=== PATIENT | male | born 1930 | race Caucasian/White ===

== ENCOUNTER → 2016-08-26 | Outpatient (REF) | payer MEDICARE, MEDICAID ==
[~2016-08-26] MED LIST: /ADVA50050 IN; /PANT40TA OR; /TAMS4CA OR; ALBU83IN INH; ASPI81TA4 PO; ASPI81TA83 OR; AZOPT EYE OU; BISA10SU PR; BREO1INH INH; CALC12502 OR; CEFT500T OR; CIPR25SS OR; COMB0.2S OU; COMBVENT INH; COZA25TA8 OR; DRIS50002 PO; FINA5TAB2 PO; FOLI1TAB OR; FOLI1TAB2 PO; ICAPCAP PO; LEVA250T PO; LEVA500T PO; LEVO250T24 PO; LEVO25TABR OR; LOPR50TA OR; LOSA100T36 PO; MAGN500T2 OR; METO25TAB FT; METO25TAB PO; MULTIVIT PO; NEPHRO VITE PO; No Historical Meds; OCEAN NASAL SPRAY; OXYGEN; PEG1POW PO; PERCOCET PO; PRED20TA OR; PROS5TAB OR; RENATAB5 PO; RENV2TAB PO; SIMV10TA2 OR; SYNT25TA PO; THIA100T OR; TRAV04OPD OU; TRAVATAN EYE DROPS OU; VITAMIN D50000 UNT PO; XOPEAER IN; [UNRECOGNIZED DRUG - OTHER] PO; aranesp IV; zemplar IV
== END ==
LOC: M SMT 15:41
PROVIDERS: ATTEND Nurse Practitioner Women's Health
DX: R82.90 Unspecified abnormal findings in urine (principal)

== ENCOUNTER → 2016-11-18 | Outpatient (CLI) | payer MEDICARE, MEDICAID ==
--- NOTE | 2016-11-18 14:02 | REP ---
Clinical: Follow-up pulmonary nodules. Comparison: 03/16/2016, 02/07/2016. Findings: Chronic emphysematous and interstitial changes with scattered scarring are stable. Mild perihilar and basilar bronchiectasis noted. Small area of nodularity with adjacent fibrosis is appreciated along the subpleural deep right lower lobe (image 88) measuring roughly 12 mm. Small bibasilar subpleural nodular densities with adjacent fibrosis and scarring noted at the posterior lower lobes (images 70 - 90) were previously somewhat obscured by pleural effusions and cannot be appropriately compared to prior examinations. While these findings may represent chronic changes areas of active disease cannot be excluded. Previously noted ground-glass opacity in the left apex as well as the above-mentioned pleural effusions have resolved. Impression: Small areas of subpleural nodularity with adjacent fibrosis and scarring along the lateral aspect of the right lower lobe and bilateral lung bases were at least partially obscured by pleural effusions on prior examinations. Continued follow-up examination at 6-12 months may be warranted. Signed by Adonis Aleman MD 11/18/2016 01:53 P
== END ==
LOC: M RAD 13:17
PROVIDERS: ATTEND Internal Medicine Pulmonary Disease
DX: R91.1 Solitary pulmonary nodule (principal)

== ENCOUNTER → 2016-12-09 | Outpatient (CLI) | payer MEDICARE, MEDICAID ==
[~2016-12-09] MED LIST changes: +E-Z-PAQUE 96% w/w SUSP 176GM BTL As Ordered ONE; +VARIBAR NECTAR 40% w/v 240ML SUSP BTL As Ordered ONE; +VARIBAR PUDDING 40% w/v 230ML TUBE As Ordered ONE
--- NOTE | 2016-12-09 19:48 | REP ---
VITO SWALLOW: The procedure was performed under the direct supervision of Dr. Scales. The procedure was performed with Estela Lazaro from speech pathology present. 5 mL aliquots of nectar pudding solid and thin consistency barium was administered. With thin consistency barium there is aspiration. A detailed report of this examination will be provided by speech pathology. 1 minute and 58 seconds of fluoroscopy time was utilized for this procedure. Reviewed by ANSHU Maddox 12/10/2016 08:53 AEdited and Signed by Osmani Scales MD 12/10/2016 12:46 P
== END ==
LOC: M ST 10:31
PROVIDERS: ATTEND Internal Medicine Nephrology
DX: R13.10 Dysphagia, unspecified (principal); J44.9 Chronic obstructive pulmonary disease, unspecified
CPT/HCPCS: 74230; 92610; G8996; G8997; G8998

== ENCOUNTER 2016-12-23 12:32 | Inpatient (IN) | payer MEDICARE, MEDICAID ==
[~2016-12-23] VITALS: Ht 175.3 cm; Wt 50.0 kg
[~2016-12-23 12:32] MED LIST changes: -E-Z-PAQUE 96% w/w SUSP 176GM BTL As Ordered ONE; -VARIBAR NECTAR 40% w/v 240ML SUSP BTL As Ordered ONE; -VARIBAR PUDDING 40% w/v 230ML TUBE As Ordered ONE
[2016-12-23] MEDS ORDERED: MEGA625S PO (12:48)
--- NOTE | 2016-12-23 13:42 | REP ---
CT HEAD WITHOUT CONTRAST: HISTORY: Infarction. COMPARISON: 06/30/2016. An area of decreased attentuation is present in the left basal ganglia. This represents an old lacunar infarction. Areas of decreased attentuation are present in the periventricular and subcortical white matter. This represents small vessel ischemic disease. There is no intraparenchymal hemorrhage, mass, or midline shift. The ventricular system and cortical sulci as well as subarachnoid space in the posterior fossa are dilated consistent with moderate volume loss. There is no extracerebral collection. The visualized sinuses are clear. IMPRESSION: 1. Old left basal ganglia lacunar infarction. 2. Small vessel ischemic disease. 3. Moderate volume loss. Signed by Timur Jurado MD 12/23/2016 01:44 P
[2016-12-23 13:50] LABS: INR 0.92
[2016-12-23 13:52] LABS: ADD MORPHOLOGY? YES; BASO # 0.1 K/mm3 (0.0-0.2); BASO % 1.2 % (0.0-1.0); EOS # 0.2 K/mm3 (0.0-0.50); LARGE UNSTAINED CELL # 0.3 K/mm3 (0.0-0.4); LARGE UNSTAINED CELL % 4.2 % (0.0-4.0); LYMPH # 1.5 K/mm3 (1.5-4.5); LYMPH % 18.4 % (24.0-44.0); MEAN CORPUSCULAR HEMOGLOBIN 35.2 pg (27.0-33.0); MEAN CORPUSCULAR VOLUME 110.1 fl (80.0-96.0); MONO # 0.6 K/mm3 (0.0-0.8); MONO % 9.3 % (0.0-5.0); NEUTROPHILS # 4.2 K/mm3 (1.8-7.7); NEUTROPHILS % 63.9 % (36.0-66.0); RED CELL DISTRIBUTION WIDTH 15.2 % (11.5-14.5); WHITE BLOOD COUNT 6.5 K/mm3 (4.0-10.0)
[2016-12-23 13:54] LABS: CALCIUM LEVEL 8.7 MG/DL (8.8-10.2); CREATININE FOR GFR 4.5 MG/DL (0.70-1.30); GLOMERULAR FILTRATION RATE 13.4 (>35); POTASSIUM SERUM 4.4 MEQ/L (3.5-5.1)
--- NOTE | 2016-12-23 13:59 | REP ---
Chest one-view HISTORY: Infarction Comparison: 06/30/2016 Linear density is present in the right lower lobe consistent with scar. The cardiac silhouette is enlarged. The pulmonary vasculature is normal in appearance. Impression: 1. Right lower lobe scar. 2. Cardiomegaly. Signed by Timur Jurado MD 12/23/2016 01:51 P
[2016-12-23 14:06] LABS: PLATELET COUNT, AUTOMATED 99 k/mm3 (150-450)
[2016-12-23 14:07] LABS: ANISOCYTOSIS 1+
[2016-12-23] MEDS ORDERED: ONDANSETRON 4MG/2ML VIAL (J2405) IV PRN (16:30)
[2016-12-23] MEDS ORDERED: ACETAMINOPHEN TAB 650MG DOSE (2X325MG) PO PRN (16:30)
[2016-12-23] MEDS ORDERED: LEVO25TA5 PO (16:31)
[2016-12-23] MEDS ORDERED: ASPI81TA13 PO (16:31)
[2016-12-23] MEDS ORDERED: MEGE400SUS PO (16:31)
[2016-12-23] MEDS ORDERED: FINA5TAB2 PO (16:31)
[2016-12-23] MEDS ORDERED: COMB0.2S OU (16:31)
[2016-12-23] MEDS ORDERED: TRAV04OPD OU (16:31)
[2016-12-23] MEDS ORDERED: FOLI1TAB2 PO (16:31)
[2016-12-23] MEDS ORDERED: METO12TA PO (16:31)
[2016-12-23] MEDS ORDERED: RENV2TAB PO (16:31)
[2016-12-23] MEDS ORDERED: ICAPCAP PO (16:31)
[2016-12-23] MEDS ORDERED: RENATAB5 PO (16:31)
[2016-12-23] MEDS ORDERED: DRIS50002 PO (16:31)
--- NOTE | 2016-12-23 16:43 | HPEPDOC ---
Medical History and Physical Date of Admission 12/23/16 History and Physical PRIMARY CARE PROVIDER: Dr. Ye Ferris ATTENDING: CHIEF COMPLAINT: Change in mental status HISTORY OF PRESENT ILLNESS: This is a 86-year-old male past history of COPD, diastolic heart failure, end- stage renal disease on hemodialysis, chronic urinary retention with chronic Posadas, history of CVA with no residual deficits are presents with altered mental status. states that the patient went to hemodialysis yesterday and since then has been having change in his mental status. He typically walks with a walker however he lost his balance and he fell down to the floor with his knee striking the floor. No head trauma or loss of consciousness. No chest pain/ palpitations. Patient also had trouble with word finding as well as trouble dialing phone numbers. No focal weakness. No slurred speech or facial droop. In the ED patient was found to have elevated blood pressure in the 200s. Urine noted to be dark within the Posadas catheter bag. PAST MEDICAL HISTORY: As per HPI PAST SURGICAL HISTORY: AVF, left hip surgery. SOCIAL HISTORY: History of tobacco abuse half pack a day for most of his life quit many years ago. Denies any alcohol or illicit drug use. Lives with . Uses a walker to ambulate. FAMILY HISTORY: Non contributory ALLERGIES: Please see below. REVIEW OF SYSTEMS: HEENT: Denies sore throat/headache CARDIOVASCULAR: Denies chest pain/palpitations RESPIRATORY: No shortness of breath/cough GASTROINTESTINAL: denies nausea/vomiting GENITOURINARY: Denies dysuria/urinary urgency. MUSCULOSKELETAL: Denies myalgias/arthralgias NEUROLOGICAL: Denies any focal weakness Rest of ROS negative. HOME MEDICATIONS: Please see below. PHYSICAL EXAMINATION: Vitals: (see below) General: No acute distress, laying comfortably in bed. HEENT: Moist mucous membranes. Neck: No JVD or lymphadenopathy Cardiac: RRR, No murmurs Pulm: Clear to auscultation b/l. No wheezing, rhonchi Abd: NT/ND + BS Ext: No edema or cyanosis. Abrasions b/l knees - no effusion/warmth - full ROM. Posadas catheter. Neuro: Strength 5/5 BUE and BLE. CN 2-12 intact. F to N intact Negative pronator drift. Negative Babinki. Sensation to fine touch intact. LABORATORY DATA: See below. IMAGING: CXR 5/4/17 Impression: 1. Right lower lobe scar. 2. Cardiomegaly. CT Head 12/23/16 IMPRESSION: 1. Old left basal ganglia lacunar infarction. 2. Small vessel ischemic disease. 3. Moderate volume loss. MICROBIOLOGY: Please see below. ASSESSMENT/PLAN: 1. Altered mental status likely multifactorial- hypertensive encephalopathy, ? UTI with chronic Posadas, ? TIA. We'll control the patient's blood pressure - patient is been started on amlodipine and hydralazine as needed. Patient will also be started on empiric antibiotics for a possible urinary tract infection. ( H/o klebsiella) The patient also be having an MRI of the brain to rule out acute CVA. Patient currently has no focal deficits on exam. Neuro checks. Physical therapy. 2. Hypertensive urgency- started on amlodipine and hydralazine as needed. We'll monitor in PCU. 3. History of diastolic heart failure- compensated 4. End-stage renal disease- on hemodialysis Tuesday- last dialysis yesterday. We'll consult nephrology. 5. History of CVA- on aspirin and statin 6. Chronic urinary retention with chronic Posadas 7. Thrombocytopenia- no acute bleeding at this time. We'll continue to monitor. DVT prophylaxis- SCDs Patient was followed by Dr. Hilton starting 12/24/16 at 7 AM. Vital Signs Vital Signs Date Time Temp Pulse Resp B/P (MAP) Pulse Ox O2 Delivery O2 Flow Rate FiO2 12/23/16 13:01 97.9 58 18 192/82 100 Room Air Laboratory Data Labs 24H Laboratory Tests 2 12/23/16 13:10: White Blood Count 6.5, Red Blood Count 3.53L, Hemoglobin 12.4L, Hematocrit 38.9L , Mean Corpuscular Volume 110.1H, Mean Corpuscular Hemoglobin 35.2H, Mean Corpuscular Hemoglobin Concent 32.0, Red Cell Distribution Width 15.2H, Platelet Count 99L, Neutrophils (%) (Auto) 63.9, Lymphocytes (%) (Auto) 18.4L, Monocytes (%) (Auto) 9.3H, Eosinophils (%) (Auto) 3.0, Basophils (%) (Auto) 1.2H , Neutrophils # (Auto) 4.2, Lymphocytes # (Auto) 1.5, Monocytes # (Auto) 0.6, Eosinophils # (Auto) 0.2, Basophils # (Auto) 0.1, Large Unclassified Cells % 4.2H, Large Unclassified Cells # 0.3, Platelet Estimate DECREASED, Anisocytosis 1+, Macrocytosis 3+, Prothrombin Time 12.5, Prothromb Time International Ratio 0.92, Activated Partial Thromboplast Time 32.9, Anion Gap 8, Glomerular Filtration Rate 13.4L, Blood Urea Nitrogen 15, Creatinine 4.50H, Sodium Level 140, Potassium Level 4.4, Chloride Level 102, Carbon Dioxide Level 30, Calcium Level 8.7L, Total Creatine Kinase 33L, Creatine Kinase MB 1.0, Creatine Kinase MB Relative Index 3.03, Troponin I 0.04 12/23/16 15:16: Bedside Glucose (Misc Panel) 78L CBC/BMP Laboratory Tests 12/23/16 13:10 Red Blood Count 3.53 L, Mean Corpuscular Volume 110.1 H, Mean Corpuscular Hemoglobin 35.2 H, Mean Corpuscular Hemoglobin Concent 32.0, Red Cell Distribution Width 15.2 H, Neutrophils (%) (Auto) 63.9, Lymphocytes (%) (Auto) 18.4 L, Monocytes (%) (Auto) 9.3 H, Eosinophils (%) (Auto) 3.0, Basophils (%) ( Auto) 1.2 H, Neutrophils # (Auto) 4.2, Lymphocytes # (Auto) 1.5, Monocytes # ( Auto) 0.6, Eosinophils # (Auto) 0.2, Basophils # (Auto) 0.1, Calcium Level 8.7 L , Total Creatine Kinase 33 L Allergies Coded Allergies: No Known Drug Allergy (Verified Allergy, Unknown, 11/26/12) STEPHANE LOVE MD December 23, 2016 16:42
[2016-12-23] MEDS ORDERED: amLODIPine 5 MG TAB PO ONE (17:00)
[2016-12-23] MEDS ORDERED: hydrALAZINE INJ 20 MG/ML VIAL IV ONE (17:00)
[2016-12-23] MEDS: cefTRIAXone SOD 1 GM in D5W MINI-BAG PLUS 50 ML IV SCH (19:29)
[2016-12-23 20:00] VITALS: BP 165/70
[2016-12-23] MEDS: (RENVELA) SEVELAMER **CARBONate** 800 MG TAB PO SCH (20:36)
[2016-12-23] MEDS: METOPROLOL TART 25 MG TABLET PO SCH (20:53)
[2016-12-23] MEDS: FINASTERIDE 5 MG TAB PO SCH (20:53)
[2016-12-23] MEDS: LATANOPROST 0.005% OPHTH SOLN 2.5 ML OU SCH (21:40)
[2016-12-23 22:00] VITALS: BP_SYST 142; BP_SYST 150; BP_DIAS 56; BP_DIAS 62
[2016-12-24] VITALS: BP 158/71
[2016-12-24 04:45] VITALS: BP 153/70
[2016-12-24] MEDS: (RENVELA) SEVELAMER **CARBONate** 800 MG TAB PO SCH ×3 (05:24→17:08)
[2016-12-24] MEDS: METOPROLOL TART 25 MG TABLET PO SCH ×2 (05:24→20:16)
[2016-12-24] MEDS: LEVOTHYROXINE 0.025 MG TAB (25 MCG) PO SCH (05:24)
[2016-12-24 05:26] LABS: BASO % 0.5 % (0.0-1.0); EOS # 0.2 K/mm3 (0.0-0.50); EOS % 3.2 % (0.0-3.0); LARGE UNSTAINED CELL # 0.3 K/mm3 (0.0-0.4); LARGE UNSTAINED CELL % 4.5 % (0.0-4.0); LYMPH # 1.5 K/mm3 (1.5-4.5); LYMPH % 20.8 % (24.0-44.0); MEAN CORPUSCULAR HEMOGLOBIN 35.6 pg (27.0-33.0); MEAN CORPUSCULAR HGB CONC 32.7 g/dl (32.0-36.5); MEAN CORPUSCULAR VOLUME 108.7 fl (80.0-96.0); MONO # 0.5 K/mm3 (0.0-0.8); MONO % 8.8 % (0.0-5.0); NEUTROPHILS # 3.6 K/mm3 (1.8-7.7); NEUTROPHILS % 62.2 % (36.0-66.0); RED CELL DISTRIBUTION WIDTH 15.4 % (11.5-14.5); WHITE BLOOD COUNT 5.8 K/mm3 (4.0-10.0)
[2016-12-24 05:27] LABS: PLATELET COUNT, AUTOMATED 99 k/mm3 (150-450)
[2016-12-24 05:49] LABS: ALBUMIN 2.3 GM/DL (3.2-5.2); ALBUMIN/GLOBULIN RATIO 0.72 (1.00-1.93); BILIRUBIN,TOTAL 0.5 MG/DL (0.2-1.0); CALCIUM LEVEL 8.3 MG/DL (8.8-10.2); CREATININE FOR GFR 5.41 MG/DL (0.70-1.30); GLOMERULAR FILTRATION RATE 10.8 (>35); MAGNESIUM LEVEL 1.9 MG/DL (1.8-2.4); POTASSIUM SERUM 5.1 MEQ/L (3.5-5.1); TOTAL PROTEIN 5.5 GM/DL (6.4-8.2)
--- NOTE | 2016-12-24 06:38 | REP ---
MRI BRAIN WITHOUT CONTRAST: 12/23/2016. Comparison: CT brain 12/23/2016. Clinical history: TIA symptoms. The patient fell. Loss of consciousness. Memory loss. Findings: Standard noncontrast protocol followed. Ventricles are midline, symmetric and dilated consistent with moderate atrophy. Atrophy greatest in the temporal lobes. Basal ganglia are symmetric. Old lacunar infarct in left basal ganglia in the putamen. There are extensive white matter changes in the periventricular region with confluent T2 and FLAIR hyperintense signal along with scattered punctate deep central and subcortical white matter hyperintense signal. In an anterior parietal gyrus and posterior frontal subcortical white matter, there are also separate hyperintense foci in the right hemisphere but I cannot confirm diffusion-weighted images and ADC mapping sequences to define acute stroke in this area. However, in the periventricular left frontal region adjacent to the lateral ventricle, there is a hyperintense focus on diffusion-weighted images which is hypointense on ADC mapping representing acute infarct there. There is no evidence of intracranial hemorrhage. There is no extra-axial fluid collection, mass or mass effect. The brainstem shows a few punctate hyperintense foci on T2. There is atrophy in the cerebellum but less severe than in the cerebral hemisphere. Basal cisterns are intact. The seventh/eighth cranial nerve complexes are intact. Mastoids and the visualized sinuses show no acute finding. Orbits and contents intact. The corpus callosum is somewhat thinned but without signal abnormality. The optic chiasm is intact. There is thinning of the limbs of the optic chiasm and a partially empty sella is noted. The craniocervical junction shows ample subarachnoid space with no cerebellar tonsillar ectopia. Impression: 1. Ventriculomegaly and proportionate moderately severe atrophy greatest in the temporal lobes but diffuse. This is as seen on CT. 2. No intracranial hemorrhage or acute infarct, but extensive periventricular deep central and subcortical white matter as on CT. 3. Old lacunar infarct left basal ganglia and no evidence of an acute lacunar or vascular territory infarct on this study. 4. There is a tiny lacunar infarct in the periventricular white matter adjacent to the frontal horn of the left lateral ventricle as seen on diffusion weighted images and ADC mapping sequences. It measures about 8 x 3.6 mm. No bleed. Signed by Ranjeet Maher MD 12/24/2016 04:42 P
--- NOTE | 2016-12-24 06:48 | REP ---
MRA BRAIN WITHOUT CONTRAST: 12/23/2016. Clinical history: TIA symptoms. The patient fell. Loss of consciousness. Comparison: MRI brain and CT brain today. Technique: 3-D [id number] gradient echo images with MIP reformatting rotated about the longitudinal and horizontal axis of the brain. There is significant degradation of image quality by motion artifact. All source images are reviewed. The posterior fossa appears to be dominant. Right vertebral contribution to the basilar artery. I do not see significant basilar stenosis or basilar tip aneurysm. Origins of both right and left posterior cerebral arteries appear from the basilar tip. The proximal details of those vessels are limited In the anterior circulation, the carotid at the skull base is intact with some stenosis in the carotid siphon but motion artifact limits. The supraclinoid carotid, A1 and M1 segments show some stenosis but again very limited evaluation. The left carotid system likewise shows some intracavernous stenosis with motion artifact limiting the supraclinoid carotid and its branches evaluation. Impression: 1. Very limited examination due to motion artifact. 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 There is no definite stenosis of the basilar artery and a dominant right vertebral artery contribution. Signed by Ranjeet Maher MD 12/24/2016 04:42 P
[2016-12-24 08:00] VITALS: BP 157/78
[2016-12-24] MEDS ORDERED: MEGESTROL SUSP 400 MG/10 ML UDC PO SCH (09:00)
[2016-12-24] MEDS: amLODIPine 5 MG TAB PO SCH (09:05)
[2016-12-24] MEDS: ASPIRIN 81 MG ENTERIC TAB PO SCH (09:06)
[2016-12-24] MEDS: FOLIC ACID 1 MG TAB PO SCH (09:06)
[2016-12-24] MEDS ORDERED: HEPARIN 1,000 UNITS/ML 10ML VIAL (FOR RADIOLOGY& DIALYSIS ONLY) IV ONE (10:30)
--- NOTE | 2016-12-24 11:03 | ECGEPIP ---
Stationary ECG Study [facility] - ED Test Date: 2016-12-23 Pat Name: MELI COFFMAN Department: Room: - Gender: M [employer]: : 1930 Requested By: Bassam Mcconnell Order Number: [id number] Reading MD: Joan Valenzuela Measurements Intervals [place] Rate: 68 P: 75 NV: 219 QRS: -5 QRSD: 89 T: 70 QT: 398 QTc: 426 Interpretive Statements SINUS RHYTHM WITH FIRST DEGREE AV BLOCK INCREASED RATE 06/30/16 Electronically Signed On 12-24-2016 11:03:14 EDT by Joan Valenzuela
[2016-12-24 12:00] VITALS: BP 118/80
--- NOTE | 2016-12-24 12:13 | IPN ---
DATE: 12/24/2016 Nikko was admitted to the hospitalist service with altered mental status. I reviewed his history and physical. He is a patient of Dr. Ye Ferris. He has a history of end-stage renal disease and on dialysis from Dr. Amaral, hypertension, hyperlipidemia, benign prostatic hypertrophy (BPH), hypothyroidism, chronic anemia, coronary artery disease. He has a history of hyperlipidemia, but I do not see where he is on a statin. He does not have it listed as an allergy but I assume that he must have had some intolerance to this. He also has a history of hypothyroidism and on thyroid replacement. Apparently some chronic obstructive pulmonary disease (COPD), as he is on an inhaler. MEDICATIONS: - aspirin 81 mg daily - eye drops - finasteride 5 mg daily - folic acid 1 mg daily - levothyroxine 25 mcg daily - metoprolol 25 mg twice a day - Renvela 800 mg two tablets, 1600 mg with meals - Renovite daily - Megace 400 mg per 10 mL, 200 mg daily - vitamin D 50,000 units every two weeks ALLERGIES: None listed. PHYSICAL EXAMINATION: 157/78, pulse 51, respiratory rate 18, 95% oxygen saturation. GENERAL APPEARANCE: He is alert, conversant. Knows the month, year, location, and the president. 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 No facial droop or weakness. LUNGS: Decreased breath sounds but clear. HEART: Regular rate and rhythm. 1/6 systolic ejection murmur. Dialysis fistula in the left arm, palpable thrill. ABDOMEN: Soft, nontender. No masses. EXTREMITIES: No peripheral edema. Normal strength in the arms and legs. I did not test is gait. NEUROLOGIC: No focal weakness. LABORATORY DATA: He had a MRI scan done. I was reviewing the report and I wanted to clarify some aspects of it, frontal horn and left lateral ventricle. White count 5.8, hemoglobin 11.9, platelets 99. Sodium 140, potassium 5.1, BUN 25, creatinine 5, glucose 90, TSH 1.48. IMPRESSION: 1. Altered mental status secondary to stroke, probably precipitated by hypertensive spike. His mental status is back to baseline. He has an echocardiogram ordered. He is on aspirin 81 mg daily. I am not changing this, as this was probably mediated by his blood pressure and not due to failure or the aspirin. 2. Hyperlipidemia. He has documented history of hyperlipidemia. He is not on a statin. I assume that it is due to intolerance. We will defer to providers who are more familiar with him about this. 3. Hypothyroidism. TSH is in normal range on current dose of Levothroid. 4. Hypertension. Blood pressure is under better control. If he remains stable, perhaps I could discharge him tomorrow.
--- NOTE | 2016-12-24 15:48 | ECHO ---
DATE OF STUDY: 12/24/2016 REFERRING PHYSICIAN: Dr. Benedicto Muñoz INDICATION: Transient ischemic attack, unspecified. HEIGHT: 175 cm. WEIGHT: 51 kilograms. 2D MEASUREMENTS: Ventricular septum: 1.01 cm Posterior wall: 1.08 cm Left ventricle diastole: 3.9 cm Aortic annulus: 1.6 cm Left atrium: 3.4 cm Aortic root: 2.5 cm Inferior vena cava: 2.2 cm DOPPLER MEASUREMENTS: Aortic valve velocity: 144 cm/s LVOT velocity: 113 cm/s LVOT VTI: 30.1 cm Mild mitral regurgitation. Mitral E velocity: 127 cm/s Mitral A velocity: 102 cm/s Mitral deceleration time 292 milliseconds Mild tricuspid regurgitation. Estimated right ventricle systolic pressure: 36 mmHg assuming a right atrial pressure of 5 mmHg MITRAL ANNULAR TISSUE DOPPLER: E prime septal: 5.0 cm/s E prime lateral: 7.4 cm/s DESCRIPTION: Rhythm was sinus, pretty much quality was fair. No pericardial effusion. This was a 2D, M-mode, color flow Doppler, and pulse wave Doppler examination and included mitral annular tissue Doppler. No pericardial effusion. CONCLUSIONS: 1. Normal left ventricle internal dimensions and wall thickness. No regional wall motion abnormalities at the left ventricle. Normal left ventricle (LV) systolic function. Left ventricular ejection fraction (LVEF) 60-65% by visual estimate. Probably normal LV diastolic function. 2. Moderate aortic valve sclerosis of a three-cusp aortic valve. No aortic sclerosis or aortic regurgitation. 3. Moderate mitral annular calcification. Mild mitral regurgitation. No mitral stenosis. 4. Suggestive of mild elevation of estimated right ventricle systolic pressure.
[2016-12-24] MEDS: cefTRIAXone SOD 1 GM in D5W MINI-BAG PLUS 50 ML IV SCH (17:08)
[2016-12-24 17:27] VITALS: BP 116/82
[2016-12-24 20:00] VITALS: BP 134/60
--- NOTE | 2016-12-24 20:00 | CR ---
DATE OF CONSULTATION: 12/24/2016 REQUESTING PHYSICIAN: Dr. Ian Montoya. CONSULTING PHYSICIAN: Dr. Bird. REASON FOR CONSULTATION: Management of end-stage renal disease on hemodialysis. CHIEF COMPLAINT: Patient presented to the emergency room yesterday with change in mental status. HISTORY OF PRESENT ILLNESS: Mr. Nikko Dubois is an 84-year-old male with past medical history of end-stage renal disease on hemodialysis, well known to nephrology service from outpatient hemodialysis center. He has multiple other comorbidities as mentioned below. Patient has a history of urinary retention. He has chronic indwelling Posadas catheter and he has history of microaspirations as well secondary to thin liquids. Patient was brought in by family yesterday because of change in mental status, loss of balance and fall on the floor, without head trauma or loss of consciousness. Patient also had word finding difficulty. His baseline mental status is he is oriented time two. Patient was found to have elevated blood pressures in the emergency room (ER). He was treated for hypertensive urgency, and he was also found to have evidence of urinary tract infection (UTI). Patient was started on IV antibiotics. Nephrology service was called today for management of his end-stage renal disease and hemodialysis. PAST MEDICAL HISTORY: Patient has past medical history of: 1. End-stage renal disease on hemodialysis every Tuesday, Tuesday and Tuesday. 2. Chronic diastolic congestive heart failure. 3. Chronic obstructive pulmonary disease (COPD). 4. Chronic urinary retention requiring Posadas catheter. 5. History of cerebrovascular accident (CVA) in the past. PAST SURGICAL HISTORY: 1. Status post left forearm atrioventricular (AV) fistula. 2. Status post left hip surgery. ALLERGIES: No known drug allergies. FAMILY HISTORY: No significant family history of end-stage renal disease requiring hemodialysis. SOCIAL HISTORY: Patient lives at home with his . He is able to perform his activities of daily life and he walks with a walker. He is a former smoker. There is no history of alcohol abuse or illicit drug abuse. REVIEW OF SYSTEMS: CONSTITUTIONAL: There is no history of fever, but there is a report of weakness. There are no chills or rigors. EYES: There is no blurry vision or double vision. ENT: There is no dysphagia or odynophagia or ear discharge, but there is a history of aspiration and he is recommended to have honey thickened liquids. CARDIOVASCULAR: There is no chest pain or palpitations. RESPIRATORY: No shortness of breath or cough. GASTROINTESTINAL (GI). Denies any nausea or vomiting, abdominal pain, constipation. GENITOURINARY: Patient has chronic urinary retention and chronic indwelling Posadas catheter. MUSCULOSKELETAL: Patient denies any muscle aches and pains. He does have history of left hip surgery. CENTRAL NERVOUS SYSTEM: There is history of cerebrovascular accident (CVA) in the past. Patient was weak and he fell yesterday. PSYCHIATRIC: No history of depression. HEMATOLOGICAL/ONCOLOGIC: There is history of anemia secondary to end-stage renal disease. No history of tumors or cancers. ENDOCRINE: No history of diabetes. Patient has secondary hyperparathyroidism. All other review of systems are negative. OBJECTIVE: VITAL SIGNS: Temperature 98.3 degrees Fahrenheit, blood pressure 157/78, pulse 51, respiratory rate 18, saturating 95% on room air. INTAKE AND OUTPUT: Urine output recorded is only 75 mL overnight. Weight in the bed scale is 49.4 kg. HEAD AND NECK EXAMINATION: Extraocular muscles intact. Pupils equally round and reactive to light. Mucous membranes are moist. Neck is supple. There is no jugular venous distention (JVD). CARDIOVASCULAR: S1, S2. Regular rate. No murmurs, rubs or gallops. RESPIRATORY: Clear to auscultation bilaterally. Bilateral equal air entry. No rales or rhonchi. ABDOMEN: Soft. Positive bowel sounds. Nontender. No ascites. No organomegaly. GENITOURINARY: Patient has an indwelling Posadas catheter. Urine in the bag is cloudy. MUSCULOSKELETAL: There is no clubbing or cyanosis of the extremities. Pulses are 2+. No edema. CENTRAL NERVOUS SYSTEM: No focal neurological deficits. Patient is oriented time two at this time. PSYCHIATRIC: Normal mood and affect. ATRIOVENTRICULAR (AV) ACCESS: Patient has a left forearm AV fistular with positive thrill and bruit. LYMPH NODES: No significant cervical, axillary or inguinal lymphadenopathy. LABORATORY REVIEW: CBC showed a WBC 5.8, hemoglobin 11.9, platelets 99. Urinalysis done yesterday showed it was cloudy. There was 2+ protein, 3+ leukocyte esterase, 44 WBCs. BMP showed sodium 140, potassium 5.1, chloride 104, bicarbonate 27, BUN 25, creatinine 5.4, albumin 2.3. Troponin 0.05. IMMUNOLOGY: Ages Lambda light chains are pending. MICROBIOLOGY: Urine culture specimen appears contaminated. IMAGING: An MRI of the brain was done, which showed ventriculomegaly and severe atrophy of the temporal lobes. No intracranial or medullar acute infarction. There were old lacunar infarctions. CURRENT PATIENT MEDICATIONS: Patient is currently on: - Rocephin 1 gram IV every 24 hours - Tylenol as needed - amlodipine 5 mg by mouth daily - aspirin 81 mg daily - Proscar 5 mg by mouth daily - folic acid 1 mg by mouth daily - levothyroxine 25 mg by mouth daily - metoprolol 25 mg by mouth twice a day - Zofran as needed - Renvela 1600 mg by mouth three times a day with meals ASSESSMENT: An 86-year-old male with past medical history of end-stage renal disease on hemodialysis, admitted this time with hypertensive urgency, altered mental status. PLAN: 1. Altered mental status. Patient's baseline mental status is he is oriented times two. He looks calm and comfortable at this time. MRI is negative. He is being treated for presumed urinary tract infection (UTI). Patient has chronic Posadas catheterization and urine culture is appearing contaminated; however, we can continue the antibiotics at this time. 2. Hypertensive urgency. Patient's blood pressure is acceptable at this time. Continue amlodipine and metoprolol. 3. End-stage renal disease on hemodialysis. Patient's regular days are Tuesday, Tuesday and Tuesday. He will be dialyzed according to his regular schedule today. We shall try to do an ultrafiltration of around 1 liter as tolerated by his blood pressure. 4. Chronic urinary retention. Continue Posadas catheter at this time and continue Proscar as well. 5. Chronic kidney disease/mineral bone disease. Continue Renvela 1600 mg by mouth three times a day with meals for his hyperphosphatemia. 6. Anemia in end-stage renal disease. Patient's hemoglobin is 11.9, which is acceptable. No need of Aranesp administration at this time. Thank you for involving us in the care of this patient. We shall be happy to follow the patient along with you tomorrow morning.
[2016-12-24] MEDS: FINASTERIDE 5 MG TAB PO SCH (20:16)
[2016-12-24] MEDS: LATANOPROST 0.005% OPHTH SOLN 2.5 ML OU SCH (20:17)
[2016-12-25] VITALS: BP 137/59
[2016-12-25 05:17] LABS: ADD MORPHOLOGY? YES; BASO % 0.2 % (0.0-1.0); EOS # 0.1 K/mm3 (0.0-0.50); EOS % 2.2 % (0.0-3.0); LARGE UNSTAINED CELL # 0.3 K/mm3 (0.0-0.4); LARGE UNSTAINED CELL % 5.5 % (0.0-4.0); LYMPH # 1.1 K/mm3 (1.5-4.5); LYMPH % 19.5 % (24.0-44.0); MEAN CORPUSCULAR HEMOGLOBIN 35.4 pg (27.0-33.0); MEAN CORPUSCULAR VOLUME 110.6 fl (80.0-96.0); MONO # 0.6 K/mm3 (0.0-0.8); NEUTROPHILS # 3.7 K/mm3 (1.8-7.7); NEUTROPHILS % 62.6 % (36.0-66.0); RED CELL DISTRIBUTION WIDTH 14.8 % (11.5-14.5); WHITE BLOOD COUNT 5.8 K/mm3 (4.0-10.0)
[2016-12-25 05:21] LABS: PLATELET COUNT, AUTOMATED 88 k/mm3 (150-450)
[2016-12-25 05:36] LABS: ALBUMIN 2.2 GM/DL (3.2-5.2); ALBUMIN/GLOBULIN RATIO 0.69 (1.00-1.93); BILIRUBIN,TOTAL 0.5 MG/DL (0.2-1.0); CREATININE FOR GFR 3.37 MG/DL (0.70-1.30); GLOMERULAR FILTRATION RATE 18.7 (>35); POTASSIUM SERUM 3.8 MEQ/L (3.5-5.1); TOTAL PROTEIN 5.4 GM/DL (6.4-8.2)
[2016-12-25] MEDS: LEVOTHYROXINE 0.025 MG TAB (25 MCG) PO SCH (05:48)
[2016-12-25 07:20] VITALS: BP 137/66
[2016-12-25] MEDS: (RENVELA) SEVELAMER **CARBONate** 800 MG TAB PO SCH ×2 (09:35→12:09)
[2016-12-25 09:36] VITALS: BP 137/66
[2016-12-25] MEDS: FOLIC ACID 1 MG TAB PO SCH (09:36)
[2016-12-25] MEDS: amLODIPine 5 MG TAB PO SCH (09:36)
[2016-12-25] MEDS: METOPROLOL TART 25 MG TABLET PO SCH (09:36)
[2016-12-25] MEDS: ASPIRIN 81 MG ENTERIC TAB PO SCH (09:36)
--- NOTE | 2016-12-25 14:42 | DSES ---
DATE OF ADMISSION: 12/23/2016 DATE OF DISCHARGE: 12/25/2016 PRINCIPAL DIAGNOSIS: Left frontal lobe acute cerebral infarction, probably secondary to hypertensive spike. SECONDARY DIAGNOSES: 1. Altered mental status/encephalopathy secondary to stroke. 2. Hypertension. 3. End-stage renal disease, on hemodialysis. 4. Hyperlipidemia. 5. Hypothyroidism. 6. Hypertension. HISTORY: Nikko Dubois was admitted with altered mental status. Details in history and physical from admission. HOSPITAL COURSE: The patient was admitted to a progressive care unit (PCU) bed. He had an MRI on admission. My dictation from yesterday is, unfortunately, full of medical laboratory technologist errors. It should have stated that I spoke with Dr. Jurado, the neuroradiologist, who reviewed the MRI scan and felt the patient definitely had an acute left frontal horn ischemic infarction without bleeding. His mental status returned to baseline. Discussed the case with Dr. Amaral today who knows the patient and feels that he is at his baseline mental status as well. On exam today, his vital signs are stable and his exam is unchanged from yesterday. LABORATORY: Today, sodium was 140, potassium 3.8, BUN 13, creatinine 3.3, glucose 89. White count 5.8, hemoglobin 11.6, platelets 88. I did order kappa and lambda light chains, part of evaluation of his anemia, his macrocytic anemia. The results of those are pending. Dr. Ferris can followup on those. DISPOSITION: The patient is discharged home in improved and stable condition. He will followup with Dr. Ferris in a week. He will followup with nephrology per their office. His medicines are unchanged from before admission. Noted on previous dictations, I did not change or augment his antiplatelet therapy as I do not feel that the stroke was the failure of his antiplatelet drugs, more a consequence of his hypertensive spike. Per our records, he is on aspirin 81 mg daily, some eye drops, Proscar 5 mg daily, folic acid 1 mg daily, levothyroxine 25 mcg daily, Megace 200 mg daily, metoprolol 25 mg twice a day, Mandie-Musa one daily, Renvela 1600 mg three times a day with meals, vitamin D 50,000 units weekly. Activity as tolerated. Renal diet. Copies To: Dr. Ye Amaral
--- NOTE | 2016-12-25 17:57 | IPN ---
DATE: 12/24/2016 Mr. Dubois is seen this morning on his bedside. He is feeling better today and reports that he walked with the physical therapist all around the unit in the hallway. He denies any dyspnea, chest pain, nausea or vomiting. He was able to answer my questions appropriately. The patient was admitted with altered mentation and has been diagnosed with stroke on his MRI. He is dialysis dependent and was dialyzed yesterday. On physical examination, temperature 98.9 degrees Fahrenheit, heart rate 95 per minute and respiratory rate 20 per minute. Blood pressure 137/66 mmHg and oxygen saturation 96% on room air. Head is atraumatic. Ears, nose and throat are unremarkable. Pupils are equal and reactive to light and sclera is anicteric. Heart sounds are regular. Lungs clear to auscultation. Abdomen soft, nontender and bowel sounds are normal. There is no palpable organomegaly. Extremities have no cyanosis or clubbing. Neurologically, he is awake, alert and oriented times three. Today's labs show WBC count 5.8, hemoglobin 11.6 and hematocrit 36.5. Sodium 140 and potassium 3.8. BUN 13 and creatinine 3.37. PROBLEMS 1. End-stage renal disease. The patient was dialyzed yesterday, which is his regular dialysis day. His next dialysis will be scheduled for Tuesday. 2. Anemia. His anemia is stable and we will continue to monitor closely. At present no intervention is indicated. 3. Altered mentation. Most likely related to stroke. He was also treated for urinary tract infection (UTI). His mentation seems to be almost back to baseline. 4. Hypertension. Blood pressure is reasonably well-controlled on current antihypertensive meds. DISPOSITION: From a renal standpoint, patient can be transferred out of progressive unit to regular medical floor.
[2016-12-29 00:11] LABS: FREE KAPPA LIGHT CHAINS SERUM 162.34 mg/L (3.30-19.40); FREE LAMBDA LIGHT CHAINS SERUM 140.3 mg/L (5.71-26.30); KAPPA/LAMBDA RATIO SERUM 1.16 (0.26-1.65)
== END 2016-12-25 14:10 | disposition home or self-care (01) | DRG 64 ==
LOC: M ED 13:19 → M ED INP 16:26 → M PCU 19:55
PROVIDERS: ADMIT Internal Medicine; ATTEND Hospitalist
PROC: 5A1D00Z (ICD-10-PCS; principal; 2016-12-24)
DX: I63.9 Cerebral infarction, unspecified (principal); N18.6 End stage renal disease; I67.4 Hypertensive encephalopathy; N39.0 Urinary tract infection, site not specified; I50.32 Chronic diastolic (congestive) heart failure; I13.2 Hypertensive heart and chronic kidney disease with heart failure and with stage 5 chronic kidney disease, or end stage renal disease; D63.1 Anemia in chronic kidney disease; I16.0 Hypertensive urgency; E83.39 Other disorders of phosphorus metabolism; E78.5 Hyperlipidemia, unspecified; J44.9 Chronic obstructive pulmonary disease, unspecified; E03.9 Hypothyroidism, unspecified; R41.82 Altered mental status, unspecified; R33.9 Retention of urine, unspecified; Z96.0 Presence of urogenital implants; Z99.2 Dependence on renal dialysis; Z79.82 Long term (current) use of aspirin; Z87.891 Personal history of nicotine dependence; Z86.73 Personal history of transient ischemic attack (TIA), and cerebral infarction without residual deficits

== ENCOUNTER 2016-12-29 06:44 | Emergency (ER) | payer MEDICARE, MEDICAID ==
[~2016-12-29] VITALS: Ht 170.2 cm; Wt 50.8 kg
[~2016-12-29 06:44] MED LIST changes: +ASPI81TA13 PO; +LEVO25TA5 PO; +MEGA625S PO; +MEGE400SUS PO; +METO12TA PO
[2016-12-29] MEDS ORDERED: MORPHINE 2 MG/ML 1ML SYRINGE IV PRN (07:15)
[2016-12-29] MEDS ORDERED: ONDANSETRON 4MG/2ML VIAL (J2405) IV ONE (07:15)
[2016-12-29 08:01] LABS: ADD MORPHOLOGY? YES; BASO % 0.5 % (0.0-1.0); EOS # 0.2 K/mm3 (0.0-0.50); EOS % 4.2 % (0.0-3.0); LARGE UNSTAINED CELL # 0.4 K/mm3 (0.0-0.4); LARGE UNSTAINED CELL % 7.3 % (0.0-4.0); LYMPH # 1.3 K/mm3 (1.5-4.5); LYMPH % 17.4 % (24.0-44.0); MEAN CORPUSCULAR HEMOGLOBIN 35.2 pg (27.0-33.0); MEAN CORPUSCULAR VOLUME 109.8 fl (80.0-96.0); MONO # 0.6 K/mm3 (0.0-0.8); MONO % 11.6 % (0.0-5.0); PLATELET COUNT, AUTOMATED 178 k/mm3 (150-450); RED CELL DISTRIBUTION WIDTH 14.8 % (11.5-14.5); WHITE BLOOD COUNT 5.1 K/mm3 (4.0-10.0)
[2016-12-29 08:01] LABS: CALCIUM OXALATE CRYSTALS SMALL
[2016-12-29 08:05] LABS: INR 0.94
[2016-12-29 08:11] LABS: ALBUMIN 2.7 GM/DL (3.2-5.2); ALBUMIN/GLOBULIN RATIO 0.66 (1.00-1.93); BILIRUBIN,DIRECT 0.2 MG/DL (0.0-0.2); BILIRUBIN,TOTAL 0.5 MG/DL (0.2-1.0); CALCIUM LEVEL 8.9 MG/DL (8.8-10.2); CREATININE FOR GFR 5.65 MG/DL (0.70-1.30); GLOMERULAR FILTRATION RATE 10.3 (>35); POTASSIUM SERUM 4.9 MEQ/L (3.5-5.1); TOTAL PROTEIN 6.8 GM/DL (6.4-8.2)
--- NOTE | 2016-12-29 09:03 | REP ---
CT study of the chest without contrast: History: End-stage renal disease, injury in a fall, right flank pain. Comparison portable chest x-ray is from December 23, 2016. Comparison chest CT study is from November [address] findings: There are small bilateral pleural effusions, left larger than right. No pericardial effusion is seen. Mild cardiomegaly is observed and there is mitral annular calcification and vascular calcification. No hilar or mediastinal mass or adenopathy is appreciated. There are bilateral lower lobe fibrotic changes which are chronic and stable from the November 18, 2016 prior study. No new infiltrate is seen. There are subacute fractures involving the right posterior 9th through 12th ribs. These are unchanged from November 18, 2016 prior study. There is an old healed fracture of the anterolateral aspect of the right 6th rib. This is unchanged as well. There is a subtle cortical irregularity of the right lateral 8th rib with some adjacent pleural thickening which is felt to be an acute nondisplaced fracture. No other CT evidence of acute rib fracture is seen. Marked renal cortical atrophy is seen. No adrenal abnormality is observed. The visualized upper abdominal structures are otherwise unremarkable. Impression: 1. Small bilateral pleural effusions, mild cardiomegaly. 2. Fibroatelectatic changes in the lower lobes bilaterally, stable from November 18, 2016. 3. Multiple old or healing right-sided rib fractures unchanged. 4. Suspect nondisplaced acute rib fracture right lateral 8th rib. No other acute abnormality. Signed by Osmani Scales MD 12/29/2016 04:32 P
--- NOTE | 2016-12-29 09:05 | REP ---
CT abdomen and pelvis without IV or oral contrast: History: Right flank pain. History of end-stage renal disease, UTI and a fall. Comparison study is from February 04, 2016. Findings: Small amounts of bilateral pleural fluid are noted. There is no evidence of ascites. The liver and spleen are homogeneous in texture and normal in size. Gallbladder is unremarkable. No pancreatic abnormality is seen. There is marked bilateral diffuse cortical atrophy. There is an intrarenal calculus in the lower pole of the left kidney which measures 5 mm in greatest diameter. No hydronephrosis is seen. No adrenal lesion is observed. No evidence of free intraperitoneal air. Posadas catheter is seen in the urinary bladder. There is spray artifact on pelvic images from left hip replacement prosthetic components. There is diffuse osteopenia. Right posterior and lateral rib fractures as described in the chest CT report are seen. No lumbar, abdominal or pelvic fracture is appreciated. No hip fracture is seen. Vascular calcification is seen in a normal caliber aorta. There are multiple loops of air-filled mildly dilated small bowel in the central abdomen which suggests ileus. There is no evidence of obstruction. The colon is not dilated. No evidence of mesenteric or bowel wall hematoma seen. Impression: Ileus pattern in the bowel gas. Marked renal cortical atrophy bilaterally. A 5 mm calcification intrarenal lower pole left kidney. No traumatic abnormality seen. Signed by Osmani Scales MD 12/29/2016 04:32 P
[2016-12-29] MEDS ORDERED: CIPROFLOXACIN 500 MG TAB PO ONE (09:15)
[2016-12-29] MEDS ORDERED: CIPR500T89 PO (09:33)
[2016-12-29 09:39] VITALS: BP 194/86
--- NOTE | 2016-12-29 20:17 | ECGEPIP ---
Stationary ECG Study [facility] - ED Test Date: 2016-12-29 Pat Name: MELI COFFMAN Department: Room: - Gender: M Cheese Tester: lorin : [id number] Requested By: Yazmin Leyva Order Number: [id number] Reading MD: Yazmin Leyva Measurements Intervals [place] Rate: 56 P: 81 DC: 207 QRS: -1 QRSD: 96 T: 68 QT: 414 QTc: 400 Interpretive Statements SINUS BRADYCARDIA WITH MARKED SINUS ARRHYTHMIA AND FIRST DEGREE AV BLOCK NONSPECIFIC ST T WAVE CHANGES CW 12/23/16 - RATE DECREASED Electronically Signed On 12-29-2016 20:17:05 EDT by Yazmin Leyva
== END 2016-12-29 10:02 | disposition home or self-care (01) ==
LOC: M ED 08:23
DX: S22.31XA Fracture of one rib, right side, initial encounter for closed fracture (principal); N20.0 Calculus of kidney; X58.XXXA Exposure to other specified factors, initial encounter; Y92.89 Other specified places as the place of occurrence of the external cause; Y93.89 Activity, other specified; Y99.9 Unspecified external cause status
CPT/HCPCS: 71250; 74176; 80048; 80076; 81001; 82150; 83605; 83690; 85025; 85610; 85730; 87040; 87088; 87186; 93005; 93041; 94010; 99285; J2405

== ENCOUNTER 2016-12-31 11:20 | Inpatient (IN) | payer MEDICARE, MEDICAID ==
[~2016-12-31] VITALS: Ht 170.2 cm; Wt 51.5 kg
[~2016-12-31 11:20] MED LIST changes: +CIPR500T89 PO
[2016-12-31] MEDS ORDERED: NS 500 ML IV ONE (11:45)
[2016-12-31] MEDS ORDERED: TYLE500T78 PO (11:50)
[2016-12-31] MEDS ORDERED: RANI150C PO (11:50)
[2016-12-31] MEDS ORDERED: ERGO500014 PO (11:50)
[2016-12-31] MEDS ORDERED: RENATAB5 PO (11:50)
--- NOTE | 2016-12-31 11:53 | REP ---
HEAD CT WITHOUT CONTRAST: HISTORY: Altered mental status. Comparison head CT study is from December 23, 2016. FINDINGS: Digital lateral scale balancer radiograph is unremarkable. Bone window settings demonstrate an intact bony calvarium. Vascular calcification is observed in the distal carotid arteries bilaterally. Visualized paranasal sinuses are clear. There is moderate diffuse cerebral atrophy. Small vessel atherosclerotic changes are seen with periventricular low density bilaterally in the supratentorial brain in a pattern which is unchanged from the recent prior head CT. There is no evidence of intracranial hemorrhage. No extra-axial fluid collection mass or midline shift is seen. No new cortical infarct is appreciated. IMPRESSION: Vascular calcification, moderate diffuse atrophy. No acute intracranial abnormality. Signed by Osmani Scales MD 12/31/2016 12:58 P
[2016-12-31 12:10] LABS: BASO % 0.1 % (0.0-1.0); EOS # 0.2 K/mm3 (0.0-0.50); EOS % 4.6 % (0.0-3.0); LARGE UNSTAINED CELL # 0.3 K/mm3 (0.0-0.4); LARGE UNSTAINED CELL % 5.1 % (0.0-4.0); LYMPH # 1.2 K/mm3 (1.5-4.5); MEAN CORPUSCULAR HEMOGLOBIN 35.3 pg (27.0-33.0); MEAN CORPUSCULAR HGB CONC 32.5 g/dl (32.0-36.5); MEAN CORPUSCULAR VOLUME 108.6 fl (80.0-96.0); MONO # 0.5 K/mm3 (0.0-0.8); MONO % 9.3 % (0.0-5.0); NEUTROPHILS # 3.3 K/mm3 (1.8-7.7); NEUTROPHILS % 62.8 % (36.0-66.0); PLATELET COUNT, AUTOMATED 169 k/mm3 (150-450); RED CELL DISTRIBUTION WIDTH 14.4 % (11.5-14.5); WHITE BLOOD COUNT 5.3 K/mm3 (4.0-10.0)
--- NOTE | 2016-12-31 12:11 | REP ---
REASON FOR EXAM: Altered mental status. COMPARISON: 12/23/2016 also portable. The technique utilized in obtaining the radiograph has magnified the cardiac silhouette and accentuated the interstitial markings. There has been no significant change from the prior exam. There are mild chronic changes with cardiomegaly and fibrosis. No acute patchy parenchymal opacities or pleural effusions have developed. There is no change in the osseous structures. IMPRESSION: Stable chest without evidence of acute cardiopulmonary disease. Signed by Medhat Blanton DO 12/31/2016 02:46 P
[2016-12-31 12:16] LABS: ALBUMIN 2.4 GM/DL (3.2-5.2); ALBUMIN/GLOBULIN RATIO 0.77 (1.00-1.93); BILIRUBIN,DIRECT 0.1 MG/DL (0.0-0.2); BILIRUBIN,TOTAL 0.3 MG/DL (0.2-1.0); CALCIUM LEVEL 8.3 MG/DL (8.8-10.2); CREATININE FOR GFR 5.78 MG/DL (0.70-1.30); POTASSIUM SERUM 5.1 MEQ/L (3.5-5.1); TOTAL PROTEIN 5.5 GM/DL (6.4-8.2)
[2016-12-31] MEDS ORDERED: CIPR500T3 PO (13:23)
[2016-12-31] MEDS ORDERED: LOPE2TAB PO (13:28)
--- NOTE | 2016-12-31 13:57 | HPEPDOC ---
Medical History and Physical Date of Admission 12/31/16 History and Physical ATTENDING: Dr. Garza Nephrology. Dr Barrios PCP: Dr Ferris CC: Was noted to be lethargic with AMS at HD and referred to ED for evaluation. HPI: This is a 86-year-old male past history of COPD, diastolic heart failure, end-stage renal disease on hemodialysis, chronic urinary retention with chronic Escobedo, history of recent hospitalization from 12/23/16-12/25/16 with altered mental status/CVA. Today on arrival to HD, he was noted to be lethargic with AMS and was sent to the ED. He was most recently evaluated in the ED 12/29/16 and was noted to have rib fractures and and possible UTI. Pt denies any pain currently. Denies any falls. Denies any fevers, chills, weakness, fatigue, BOURGEOIS, CP, SOB, cough, palpitations, abdominal pain, N/V/D or changes in bowel or bladder habits. Upon presentation to the hospital the patient was found to have AMS, thus the hospitalist team was consulted. PMHx: COPD diastolic CHF ESRD on HD as per Cristin M/W/F chronic urinary retention, indwelling escobedo. 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 H/O CVA MRI brain 12/23/16. Unsteady gait. Walker. hypothyroid Glaucoma PSHX: AV fistula left arm left hip repair SOCHX: Resides in: [facility], lives alone. Marital Status: Kids: 5 Tobacco use: h/o 1/2 ppd several years, quit years ago. ETOH: denies Illicit Drugs: Denies Advanced directives: HCP Orlando Dubois [phone]. FAMHX: non contributory ROS: As noted in HPI, otherwise 11pt ROS of systems reviewed and unremarkable. Has no complaints at this time. PE: GEN: 86yoM, appears stated age. thin, pale appearing. No acute distress. Alert and oriented x 3. Responsive to questioning. HEENT: Normocephalic, atraumatic. Pupils are equal, round, and reactive to light. Extraocular movements are intact. No nystagmus appreciated. Sclera are nonicteric. Conjunctiva without injection. Nose midline. Nasal turbinates without bogginess. No facial asymmetry. Moist mucous membranes. Dentition fair. Pharynx pink and moist, no cobblestoning. Neck supple, trachea midline. No lymphadenopathy or thyromegaly appreciated. CHEST: Regular rate and rhythm, +S1, +S2 LUNGS:Decreased BS bases bilaterally. No wheezes, rales, or rhonchi. Breathing appears symmetric and easy. No accessory muscle use. ABD: Round, soft, non-tender, non-distended. +Bowel sounds throughout. No rebound or guarding. No costovertebral angle tenderness. EXT: Pulses 2+ bilaterally dorsalis pedis and radial. No lower extremity edema appreciated. SKIN: [place], dry, warm. Capillary refill <2sec. No rashes. NEURO: Alert and oriented x 3. Cranial nerves III-XII are intact. No focal deficits appreciated. CXR: Stable chest without evidence of acute cardiopulmonary disease. CT: Head 12/31/16 Vascular calcification, moderate diffuse atrophy. No acute intracranial abnormality. EKG: SB, first degree AVB, 45 bpm. BLOOD CULTURES: x 2 pending UC pending. UC 12/29/16 Organism 1 STAPHYLOCOCCUS EPIDERMIDIS COLONY COUNT 15,000 CFU/ml Organism 2 STAPHYLOCOCCUS EPIDERMIDIS#2 COLONY COUNT 20,000 CFU/ml BC x 2 12/29/[address] A/P 12/29/16 Ileus pattern in the bowel gas. Marked renal cortical atrophy bilaterally. A 5 mm calcification intrarenal lower pole left kidney. No traumatic abnormality seen. CT chest 12/29/16 1. Small bilateral pleural effusions, mild cardiomegaly. 2. Fibroatelectatic changes in the lower lobes bilaterally, stable from November 18, 2016. 3. Multiple old or healing right-sided rib fractures unchanged. 4. Suspect nondisplaced acute rib fracture right lateral 8th rib. No other acute abnormality. TTE 12/24/16 1. Normal left ventricle internal dimensions and wall thickness. No regional wall motion abnormalities at the left ventricle. Normal left ventricle (LV) systolic function. Left ventricular ejection fraction (LVEF) 60-65% by visual estimate. Probably normal LV diastolic function. 2. Moderate aortic valve sclerosis of a three-cusp aortic valve. No aortic sclerosis or aortic regurgitation. 3. Moderate mitral annular calcification. Mild mitral regurgitation. No mitral stenosis. 4. Suggestive of mild elevation of estimated right ventricle systolic pressure. A&P: This is a 86-year-old male past history of COPD, diastolic heart failure, end-stage renal disease on hemodialysis, chronic urinary retention with chronic Escobedo, history of recent hospitalization from 12/23/16-12/25/16 with altered mental status/CVA. Today on arrival to HD, he was noted to be lethargic with AMS and was sent to the ED. He was most recently evaluated in the ED 12/29/16 and was noted to have rib fractures and and possible UTI The patient will be admitted to PCU for at least [address] Garza's service. Pt is discussed with Dr Martinez. 1. AMS. Possibly related to UTI/Infectious vs symptomatic bradycardia. UC as above. Repeat UA/UC. IVF x 500cc in ED. Hold Cipro, consider antibiotics once UA/UC obtained. PCU/TM. Hold metoprolol. 2. Abnormal EKG. Bradycardia 45-48 in ED. PCU/TM. CIP/Trop x 3. Hold metoprolol. 3. Recent CVA as per MRI Brain 12/23/16. ASA. No acute changes as per CT. 4. Chronic indwelling escobedo/chronic urinary retention. Escobedo cath change at Urology. 5. HTN. Hold metoprolol related to bradycardia/hypotension. Current BP 100 systolic. Monitor. 6. ESRD, HD as per Dr Amaral. Nephrology aware. 7. H/O thrombocytopenia. Currently resolved. 8. Rib fracture. Pt is denying any recent falls, Pt family is unaware of falls. Uses walker. PT/OT. Pt using tylenol as needed. 9. H/O Anemia in ESRD. Aranesp as per Nephrology. 10. Hypthyroid. Continue supplement. DVT prophylaxis. HCP on chart. Vital Signs Vital Signs Date Time Temp Pulse Resp B/P (MAP) Pulse Ox O2 Delivery O2 Flow Rate FiO2 12/31/16 12:20 45 109/54 (72) 100 12/31/16 11:37 98.9 12/31/16 11:35 18 Room Air Laboratory Data Labs 24H Laboratory Tests 2 12/31/16 11:37: White Blood Count 5.3, Red Blood Count 3.04L, Hemoglobin 10.7L, Hematocrit 33.1L , Mean Corpuscular Volume 108.6H, Mean Corpuscular Hemoglobin 35.3H, Mean Corpuscular Hemoglobin Concent 32.5, Red Cell Distribution Width 14.4, Platelet Count 169, Neutrophils (%) (Auto) 62.8, Lymphocytes (%) (Auto) 18.0L, Monocytes (%) (Auto) 9.3H, Eosinophils (%) (Auto) 4.6H, Basophils (%) (Auto) 0.1, Neutrophils # (Auto) 3.3, Lymphocytes # (Auto) 1.2L, Monocytes # (Auto) 0.5, Eosinophils # (Auto) 0.2, Basophils # (Auto) 0.0, Large Unclassified Cells % 5.1H, Large Unclassified Cells # 0.3, Anion Gap 9, Glomerular Filtration Rate 10.0L, Lactic Acid Level 1.2, Calcium Level 8.3L, Aspartate Amino Transf (AST/ SGOT) 14L, Alanine Aminotransferase (ALT/SGPT) 14, Alkaline Phosphatase 103, Total Bilirubin 0.3, Direct Bilirubin 0.1, Ammonia 17, Total Creatine Kinase 29L , Creatine Kinase MB 1.0, Creatine Kinase MB Relative Index 3.44, Troponin I 0.02, Total Protein 5.5L, Albumin 2.4L, Albumin/Globulin Ratio 0.77L, Thyroid Stimulating Hormone (TSH) 2.890 12/31/16 12:03: Bedside Glucose (Misc Panel) 98 12/31/16 12:19: CBC/BMP Laboratory Tests 12/31/16 11:37 Red Blood Count 3.04 L, Mean Corpuscular Volume 108.6 H, Mean Corpuscular Hemoglobin 35.3 H, Mean Corpuscular Hemoglobin Concent 32.5, Red Cell Distribution Width 14.4, Neutrophils (%) (Auto) 62.8, Lymphocytes (%) (Auto) 18.0 L, Monocytes (%) (Auto) 9.3 H, Eosinophils (%) (Auto) 4.6 H, Basophils (%) (Auto) 0.1, Neutrophils # (Auto) 3.3, Lymphocytes # (Auto) 1.2 L, Monocytes # ( Auto) 0.5, Eosinophils # (Auto) 0.2, Basophils # (Auto) 0.0 Microbiology Microbiology 12/31/16 Blood Culture, Received Pending 12/31/16 Blood Culture, Received Pending Home Medications Scheduled (Combigan 0.2-0.5 %) 1 Bel Bel, 1 DROP OU BID (Icaps) 1 Cap Cap, 1 CAP PO DAILY (Mandie-Musa) 1 Tab Tab, 1 TAB PO QPM Amlodipine Besylate (Amlodipine Besylate) 5 Mg Tab, 5 MG PO DAILY Aspirin (Aspirin EC) 81 Mg Tab, 81 MG PO DAILY Ciprofloxacin HCl (Ciprofloxacin HCl) 500 Mg Tab, 500 MG PO DAILY FILLED 12/29/16 FOR 7 DAYS Folic Acid (Folic Acid) 1 Mg Tab, 1 MG PO DAILY Levothyroxine Sodium (Synthroid) 25 Mcg Tab, 25 MCG PO DAILY Megestrol Acetate (Megestrol Acetate) 400 Mg/10 Ml Ashley, 200 MG PO DAILY Sevelamer Carbonate (Renvela) 800 Mg Tab, 1,600 MG PO WM Travoprost (Travatan Z) 50 Drop/2.5 Ml Soln, 1 DROP OU QHS Vitamin D (Drisdol) 50,000 Unit Cap, 50,000 UNIT PO Q2WK 1ST AND 14TH OF EVERY MONTH Scheduled PRN Acetaminophen (Tylenol Extra Strength) 500 Mg Tab, 1,000 MG PO Q6H PRN for PAIN Loperamide HCl (Loperamide HCl) 2 Mg Tab, 2 MG PO PRN PRN for DIARRHEA Allergies Coded Allergies: No Known Drug Allergy (Verified Allergy, Unknown, 11/26/12) GME ATTESTATION My preceptor for this patient encounter was physically present in the building during the encounter and was fully available. As needed, all aspects of the patient interview, examination, medical decision making process, and medical care plan development were reviewed and approved by the preceptor. Preceptor is aware and concurs with the plan as stated in the body of this note and will attest to such by his/her cosignature. Dinora Avina December 31, 2016 13:57 KAREN MARTINEZ DO January 17, 2017 18:04
[2016-12-31] MEDS ORDERED: ACETAMINOPHEN TAB 650MG DOSE (2X325MG) PO PRN (14:00)
[2016-12-31 18:00] VITALS: BP 166/71
[2016-12-31] MEDS: (RENVELA) SEVELAMER **CARBONate** 800 MG TAB PO SCH (19:06)
[2016-12-31 19:48] VITALS: BP 163/70
[2016-12-31] MEDS ORDERED: SLF 3 ML SYR IV PRN (20:30)
[2016-12-31] MEDS ORDERED: FINASTERIDE 5 MG TAB PO SCH (21:00)
[2016-12-31] MEDS: SLF 3 ML SYR IV SCH (21:27)
[2016-12-31] MEDS: LATANOPROST 0.005% OPHTH SOLN 2.5 ML OU SCH (22:34)
[2016-12-31 23:48] VITALS: BP 152/64
[2017-01-01] VITALS (7 sets, daily range): BP systolic 119–189; BP diastolic 57–84
[2017-01-01 05:28] LABS: BASO % 0.4 % (0.0-1.0); EOS # 0.3 K/mm3 (0.0-0.50); EOS % 5.5 % (0.0-3.0); LARGE UNSTAINED CELL # 0.2 K/mm3 (0.0-0.4); LARGE UNSTAINED CELL % 4.1 % (0.0-4.0); LYMPH % 19.5 % (24.0-44.0); MEAN CORPUSCULAR HEMOGLOBIN 34.8 pg (27.0-33.0); MEAN CORPUSCULAR HGB CONC 31.7 g/dl (32.0-36.5); MEAN CORPUSCULAR VOLUME 109.8 fl (80.0-96.0); MONO # 0.4 K/mm3 (0.0-0.8); MONO % 7.1 % (0.0-5.0); NEUTROPHILS # 3.2 K/mm3 (1.8-7.7); NEUTROPHILS % 63.4 % (36.0-66.0); PLATELET COUNT, AUTOMATED 181 k/mm3 (150-450); RED CELL DISTRIBUTION WIDTH 14.3 % (11.5-14.5)
[2017-01-01] MEDS: LEVOTHYROXINE 0.025 MG TAB (25 MCG) PO SCH ×2 (05:29→07:58)
[2017-01-01] MEDS: SLF 3 ML SYR IV SCH ×3 (05:36→22:00)
[2017-01-01 05:43] LABS: ALBUMIN 2.2 GM/DL (3.2-5.2); ALBUMIN/GLOBULIN RATIO 0.63 (1.00-1.93); BILIRUBIN,TOTAL 0.3 MG/DL (0.2-1.0); CALCIUM LEVEL 8.4 MG/DL (8.8-10.2); CREATININE FOR GFR 6.68 MG/DL (0.70-1.30); GLOMERULAR FILTRATION RATE 8.5 (>35); POTASSIUM SERUM 4.7 MEQ/L (3.5-5.1); TOTAL PROTEIN 5.7 GM/DL (6.4-8.2)
--- NOTE | 2017-01-01 07:05 | CR ---
DATE OF CONSULTATION: 12/31/2016 REQUESTING PHYSICIAN: Dr. Kip Garza CONSULTING PHYSICIAN: Dr. Bird REASON FOR CONSULTATION: Management of end stage renal disease and hemodialysis. CHIEF COMPLAINT: The patient was sent from the dialysis center. He was found to be lethargic with altered mental status and possible weakness in the dialysis center so dialysis was not done and he was sent to the emergency room. HISTORY OF PRESENT ILLNESS: Mr. Nikko Dubois is an 86-year-old male with past medical history of end stage renal disease on hemodialysis every Tuesday, Tuesday and Tuesday and multiple other comorbidities and recent hospital admission from 12/23/2016 to 12/25/2016 with altered mental status and possible CVA. He was brought to the hemodialysis center today in the morning, but the nurses at the dialysis center found that he was very lethargic and confused and he was falling to one side so EMS services were called. The patient was sent to the emergency room for further evaluation and possible CVA. When I saw the patient in the emergency room, he was still slightly confused, but he knows his name and he knows that he is in the hospital at this time. Initial CAT scan done in the emergency room did not show any acute CVA, but the patient was admitted at this time with possible metabolic encephalopathy and rule out CVA and MRI is pending. Nephrology service was called for further management of end stage renal disease and hemodialysis because the patient missed his hemodialysis today. PAST MEDICAL HISTORY: 1. History of end stage renal disease on hemodialysis every Tuesday, Tuesday and Tuesday. 2. History of diastolic congestive heart failure (CHF). 3. Chronic obstructive pulmonary disease (COPD). 4. History of chronic urinary retention, has an indwelling Posadas catheter. 5. History of CVA in the past. 6. Hypothyroidism. 7. Glaucoma. PAST SURGICAL HISTORY: 1. Status post AV fistula placement in the left forearm. 2. Status post partial hip replacement on the left side. ALLERGIES: No known drug allergies. FAMILY HISTORY: No significant family history of end stage renal disease requiring hemodialysis. SOCIAL HISTORY: The patient lives in [place]. He has no history of drug abuse or alcohol abuse. REVIEW OF SYSTEMS: The patient is unable to provide any reliable review of systems. CONSTITUTIONAL: The patient denies any fever or chills. EYES: He denies any blurry vision or double vision. ENT: He denies any dysphagia, odynophagia or ear discharge. CARDIOVASCULAR: He denies any chest pain or palpitations. RESPIRATORY: He denies any shortness of breath, cough or wheezing. GASTROINTESTINAL (GI): He denies any pain in abdomen or constipation. GENITOURINARY: He denies any dysuria or hematuria. He reports history of chronic urinary retention and Posadas catheter. MUSCULOSKELETAL: He denies any muscle aches and pains. CENTRAL NERVOUS SYSTEM (TANK WELDER): The patient has weakness and altered mental status. SKIN: No rashes or ulcers. All other review of systems is negative. PHYSICAL EXAMINATION: GENERAL: The patient is awake, alert and oriented times two lying in bed in no apparent distress. VITAL SIGNS: Temperature 98 degrees Fahrenheit. Blood pressure 160/70. Pulse 72. Respiratory rate 18. Saturating 99% on room air. HEAD AND NECK EXAM: Extraocular muscles intact. Pupils equally round and reactive to light. Mucous membranes are moist. Neck is supple. There is no jugular venous distention (JVD). CARDIOVASCULAR: S1, S2, regular rate. No murmur, rub or gallop. RESPIRATORY: Chest is clear to auscultation bilaterally. No rales or rhonchi. ABDOMEN: Soft. Positive bowel sounds. Nontender. No ascites. No organomegaly. EXTREMITIES: No clubbing or cyanosis. Pulses are 2+. AV ACCESS: Patient has a left forearm AV fistula with positive thrill and bruit. CENTRAL NERVOUS SYSTEM: Patient is oriented times two. Power is 5/5 in all extremities. LAB REVIEW: CBC showed a WBC of 5.3, hemoglobin 10.7 and platelets of 169. BMP showed sodium 139, potassium 4.1, chloride 103, bicarbonate 27, BUN 34, creatinine 5.7, calcium 8.3, troponin less than 0.02. MICROBIOLOGY: Blood cultures are pending. IMAGING: A CAT scan of the head done in the emergency room showed vascular calcification, no acute intracranial pathology. CURRENT MEDICATIONS (current inpatient medications include): - normal saline IV bolus - Tylenol as needed - aspirin 81 mg by mouth daily - Proscar 5 mg by mouth at nighttime - folic acid 1 mg by mouth daily - levothyroxine 25 mcg by mouth daily - Renvela 1600 mg by mouth three times a day with meals ASSESSMENT: 86-year-old male with past medical history of end stage renal disease on hemodialysis, chronic indwelling Posadas, admitted at this time with altered mental status. PLAN: 1. Metabolic encephalopathy. Possibility of urinary tract infection (UTI). Cultures are pending. The patient needs repeat MRI as well to rule out possibility of new CVA or transient ischemic attack (TIA). 2. End stage renal disease dependent on hemodialysis. Today is patient's regular day of dialysis; however. There is no urgent need to do dialysis today. The patient will be dialyzed tomorrow in the morning. 3. Hypertension. Blood pressure is acceptable at this time. I will not tightly control the blood pressure at this time until CVA is ruled out. 4. Chronic kidney disease mineral bone disease. Continue current dose of Renvela 1600 mg by mouth three times a day with meals. 5. Anemia and end stage renal disease. Hemoglobin is 10.7, acceptable at this time. No need of blood transfusion or Aranesp at this time. 6. Chronic urinary retention requiring Posadas catheterization. The patient's Posadas catheter was changed on 12/30/2016 by urology. 7. Hypothyroidism. Continue current dose of levothyroxine. Thank you for involving us in the care of this patient. We shall be happy to follow the patient along with you tomorrow morning. Plan of care was discussed with the patient's family member at the bedside in the emergency room. TERESA
[2017-01-01] MEDS: FOLIC ACID 1 MG TAB PO SCH (07:58)
[2017-01-01] MEDS: (RENVELA) SEVELAMER **CARBONate** 800 MG TAB PO SCH ×3 (07:58→17:44)
[2017-01-01] MEDS: ASPIRIN 81 MG ENTERIC TAB PO SCH (08:00)
--- NOTE | 2017-01-01 11:21 | REP ---
MRI BRAIN WITHOUT CONTRAST: TECHNIQUE: Multiple axial and sagittal sequences obtained without the administration of contrast. Comparison made with prior study of 12/23/2016. Once again, there is moderate atrophy. There are chronic periventricular small vessel ischemic changes which are stable. Resolving acute lacunar infarct is seen in the left periventricular white matter. This was identified on the prior study. No new acute infarct is seen at this time. There is no midline shift. There is no acute hemorrhage or extra-axial fluid collection. The seventh and eighth cranial nerve complexes appear unremarkable. IMPRESSION: Resolving acute lacunar infarct left periventricular white matter as seen on prior study. No acute infarct at this time. Other chronic changes are stable. Signed by Yoshi Chan MD 01/01/2017 07:46 P
--- NOTE | 2017-01-01 11:22 | REP ---
MRA BRAIN: MRA brain is performed utilizing 3D [id number] imaging with MIP reconstructions. The right vertebral artery is dominant. There is no basilar artery stenosis. Posterior cerebral arteries are patent. The right posterior cerebral is fed primarily by a large right posterior communicating artery. There is a small left posterior communicating artery present. Intracranial carotid vessels are patent with no significant stenosis seen of the anterior and middle cerebral arteries. The anterior communicating arteries are patent. I see no aneurysm or AVN. IMPRESSION: No significant intracranial arterial stenosis identified. Signed by Yoshi Chan MD 01/01/2017 07:46 P
--- NOTE | 2017-01-01 16:14 | ECGEPIP ---
Stationary ECG Study [facility] - ED Test Date: 2016-12-31 Pat Name: MELI COFFMAN Department: Room: - Gender: M [employer]asting [employer] Miner: rn : 1930 Requested By: Yazmin Leyva Order Number: [id number] Reading MD: Joan Valenzuela Measurements Intervals [place] Rate: 45 P: 88 AK: 211 QRS: 4 QRSD: 90 T: 73 QT: 476 QTc: 413 Interpretive Statements SINUS BRADYCARDIA WITH FIRST DEGREE AV BLOCK NSTTW ABNORMALITY DECREASED RATE 12/29/16 Electronically Signed On 01-01-2017 16:14:23 EDT by Joan Valenzuela
--- NOTE | 2017-01-01 16:24 | IPNPDOC ---
Text Note Date of Service The patient was seen on 01/01/17. NOTE Subjective: Patient is an 86 year old male with a PMHx of COPD, Diastolic CHF, ESRD on HD (MWF), Urinary retention (w/ indwelling Posadas), Hx of CVA (12/2016), Hypothyroidism and Glaucoma who presented to the ER with lethargy at presentation to hemodialysis. Patient was noted to have a syncopal episode, possibly 2/2 UTI or orthostatic hypotension. Patient was seen and examined at the bedside. Was noted to be awake and alert and answering questions appropriately. Objective: Vitals (See below) General: Lying in bed, no acute distress, comfortable, AAOx3 HEENT: NC, AT CVS: RRR, +S1S2 Lungs: Fair air entry b/l, -w/r/r Abdomen: Soft, ND, NT, +BSx4 Extremities: +PPx4, - Edema, - Calf tenderness Assessment and plan: 1. Near syncope - possibly 2/2 Bradycardia 2/2 Metoprolol, possibly 2/2 UTI, Possibly 2/2 orthostatic hypotension - Presented with near syncopal episode and lethargy - Physical un-revealing - UA with possible infection, Urine culture pending - No leukocytosis or elevation in lactic acid - s/p Ciprofloxacin in ER; will hold additional antibiotics - s/p Metoprolol - s/p Finasteride - c/w orthostatic vital signs 2. s/p Bradycardia - 2/2 metoprolol - Will hold metoprolol 3. Recent CVA - 12/23/2016 - Repeat MRI without evidence of new infarction 6. Urinary retention - has chronic indwelling Posadas 7. HTN - s/p Metoprolol (re: Bradycardia) - will start amlodipine 8. ESRD on HD (MWF) 9. Hx of Thrombocytopenia 10. Rib fracture - denies recent trauma - c/w Tylenol PRN 11. Hypothyroidism - c/w Levothyroxine 12. DVT prophylaxis - c/w SCDs VS,Fishbone, I+O VS, Fishbone, I+O Laboratory Tests 01/01/17 05:00 Red Blood Count 3.12 L, Mean Corpuscular Volume 109.8 H, Mean Corpuscular Hemoglobin 34.8 H, Mean Corpuscular Hemoglobin Concent 31.7 L, Red Cell Distribution Width 14.3, Neutrophils (%) (Auto) 63.4, Lymphocytes (%) (Auto) 19.5 L, Monocytes (%) (Auto) 7.1 H, Eosinophils (%) (Auto) 5.5 H, Basophils (%) (Auto) 0.4, Neutrophils # (Auto) 3.2, Lymphocytes # (Auto) 1.0 L, Monocytes # ( Auto) 0.4, Eosinophils # (Auto) 0.3, Basophils # (Auto) 0.0, Calcium Level 8.4 L , Aspartate Amino Transf (AST/SGOT) 12 L, Alanine Aminotransferase (ALT/SGPT) 11 L, Alkaline Phosphatase 102, Total Bilirubin 0.3, Total Protein 5.7 L, Albumin 2.2 L Vital Signs Date Time Temp Pulse Resp B/P (MAP) Pulse Ox O2 Delivery O2 Flow Rate FiO2 01/01/17 13:43 99.1 98 18 179/84 (115) 100 Room Air I&O- Last 24 Hours up to 6 AM 01/01/17 05:59 Intake Total 620 ml Output Total 0 ml Balance 620 ml KAVIN MONREAL MD January 01, 2017 16:24
[2017-01-01] MEDS: amLODIPine 5 MG TAB PO SCH (17:44)
[2017-01-01] MEDS: LATANOPROST 0.005% OPHTH SOLN 2.5 ML OU SCH (20:20)
[2017-01-02 04:45] VITALS: BP 155/69
[2017-01-02 05:19] LABS: BASO % 0.4 % (0.0-1.0); EOS # 0.2 K/mm3 (0.0-0.50); EOS % 4.1 % (0.0-3.0); LARGE UNSTAINED CELL # 0.2 K/mm3 (0.0-0.4); LARGE UNSTAINED CELL % 4.9 % (0.0-4.0); LYMPH # 1.4 K/mm3 (1.5-4.5); LYMPH % 26.4 % (24.0-44.0); MEAN CORPUSCULAR HEMOGLOBIN 35.1 pg (27.0-33.0); MEAN CORPUSCULAR VOLUME 106.3 fl (80.0-96.0); MONO # 0.5 K/mm3 (0.0-0.8); MONO % 11.4 % (0.0-5.0); NEUTROPHILS # 2.3 K/mm3 (1.8-7.7); NEUTROPHILS % 52.9 % (36.0-66.0); PLATELET COUNT, AUTOMATED 177 k/mm3 (150-450); RED CELL DISTRIBUTION WIDTH 14.6 % (11.5-14.5); WHITE BLOOD COUNT 4.4 K/mm3 (4.0-10.0)
[2017-01-02 05:39] LABS: ALBUMIN 2.2 GM/DL (3.2-5.2); ALBUMIN/GLOBULIN RATIO 0.67 (1.00-1.93); BILIRUBIN,TOTAL 0.5 MG/DL (0.2-1.0); CALCIUM LEVEL 8.5 MG/DL (8.8-10.2); CREATININE FOR GFR 4.52 MG/DL (0.70-1.30); GLOMERULAR FILTRATION RATE 13.3 (>35); POTASSIUM SERUM 4.3 MEQ/L (3.5-5.1); TOTAL PROTEIN 5.5 GM/DL (6.4-8.2)
[2017-01-02] MEDS: SLF 3 ML SYR IV SCH ×2 (05:47→13:03)
[2017-01-02] MEDS: (RENVELA) SEVELAMER **CARBONate** 800 MG TAB PO SCH ×2 (08:43→13:04)
[2017-01-02 08:44] VITALS: BP 123/64
[2017-01-02] MEDS: amLODIPine 5 MG TAB PO SCH (08:44)
[2017-01-02] MEDS: LEVOTHYROXINE 0.025 MG TAB (25 MCG) PO SCH (08:45)
[2017-01-02] MEDS: ASPIRIN 81 MG ENTERIC TAB PO SCH (08:45)
[2017-01-02] MEDS: FOLIC ACID 1 MG TAB PO SCH (08:45)
[2017-01-02 09:30] VITALS: BP 177/61
--- NOTE | 2017-01-02 09:52 | IPNPDOC ---
Text Note Date of Service The patient was seen on 01/02/17. NOTE Subjective: Patient is an 86 year old male with a PMHx of COPD, Diastolic CHF, ESRD on HD (MWF), Urinary retention (w/ indwelling Posadas), Hx of CVA (12/2016), Hypothyroidism and Glaucoma who presented to the ER with lethargy at presentation to hemodialysis. Patient was noted to have a syncopal episode, possibly 2/2 UTI or orthostatic hypotension. Patient was seen and examined at the bedside. No complaints this morning. Objective: Vitals (See below) General: Lying in bed, no acute distress, comfortable, AAOx3 HEENT: NC, AT CVS: RRR, +S1S2 Chest: Mild tenderness to palpation at right posterior / lateral chest wall Lungs: Fair air entry b/l, -w/r/r Abdomen: Soft, ND, NT, +BSx4 Extremities: +PPx4, - Edema, - Calf tenderness Assessment and plan: 1. Near syncope - possibly 2/2 Bradycardia 2/2 Metoprolol, possibly 2/2 UTI, Possibly 2/2 orthostatic hypotension - Presented with near syncopal episode and lethargy - Physical un-revealing - UA with possible infection, Urine culture pending - No leukocytosis or elevation in lactic acid - Orthostatics were positive initially, have normalized now - s/p Ciprofloxacin in ER; will hold additional antibiotics - s/p Metoprolol - s/p Finasteride - Physical therapy will evaluate the patient today 2. s/p Bradycardia - 2/2 metoprolol - Will hold metoprolol 3. Recent CVA - 12/23/2016 - Repeat MRI without evidence of new infarction 6. Urinary retention - has chronic indwelling Posadas 7. HTN - s/p Metoprolol (re: Bradycardia) - c/w Amlodipine 5; if BP still elevated will increase to 10 8. ESRD on HD (MWF) - Dr. Bird following - appreciate their input 9. Hx of Thrombocytopenia 10. Rib fracture - CT chest 12/29: Right lateral 8th rib fracture - non-displaced - denies recent trauma - c/w Tylenol PRN 11. Hypothyroidism - c/w Levothyroxine 12. DVT prophylaxis - c/w SCDs VS,Fishbone, I+O VS, Fishbone, I+O Laboratory Tests 01/02/17 04:54 Red Blood Count 3.13 L, Mean Corpuscular Volume 106.3 H, Mean Corpuscular Hemoglobin 35.1 H, Mean Corpuscular Hemoglobin Concent 33.0, Red Cell Distribution Width 14.6 H, Neutrophils (%) (Auto) 52.9, Lymphocytes (%) (Auto) 26.4, Monocytes (%) (Auto) 11.4 H, Eosinophils (%) (Auto) 4.1 H, Basophils (%) ( Auto) 0.4, Neutrophils # (Auto) 2.3, Lymphocytes # (Auto) 1.4 L, Monocytes # ( Auto) 0.5, Eosinophils # (Auto) 0.2, Basophils # (Auto) 0.0, Calcium Level 8.5 L , Aspartate Amino Transf (AST/SGOT) 9 L, Alanine Aminotransferase (ALT/SGPT) 12 , Alkaline Phosphatase 100, Total Bilirubin 0.5 #, Total Protein 5.5 L, Albumin 2.2 L Vital Signs Date Time Temp Pulse Resp B/P (MAP) Pulse Ox O2 Delivery O2 Flow Rate FiO2 01/02/17 09:30 79 177/61 (99) 01/02/17 04:45 99.5 20 98 Room Air I&O- Last 24 Hours up to 6 AM 01/02/17 05:59 Intake Total 240 ml Output Total 1675 ml Balance -1435 ml KAVIN MONREAL MD January 02, 2017 09:52
[2017-01-02 12:00] VITALS: BP 136/65
[2017-01-02] MEDS ORDERED: AMLO5TAB2 PO (12:26)
--- NOTE | 2017-01-02 13:51 | IPN ---
DATE OF SERVICE: 01/01/2017 SUBJECTIVE: The patient was seen and examined at the bedside today in the morning, getting hemodialysis procedure. He was tolerating the hemodialysis procedure well. REVIEW OF SYSTEMS: The patient denies any fever, chills, rigors, headache, nausea, vomiting, chest pain, shortness of breath, pain abdomen, constipation, or diarrhea. Rest of review of systems is negative. OBJECTIVE: VITAL SIGNS: Temperature is 99.1 degrees Fahrenheit, blood pressure is 179/84, pulse is 98, respiratory rate of 18, saturating 100% on room air. INTAKE AND OUTPUT: Urine output is not recorded. Weight in the bed scale is 51.5 kg. PHYSICAL EXAMINATION: GENERAL: The patient is awake, alert, oriented times two, lying in bed, getting hemodialysis done. No apparent distress. HEAD AND NECK EXAMINATION: Extraocular muscles intact. Pupils equally round and reactive to light. Mucous membranes are moist. Neck is supple. There is no jugular venous distention (JVD). CARDIOVASCULAR: S1, S2, regular rate. No murmur, rub, and gallop. RESPIRATORY: Chest is clear to auscultation bilaterally. Bilateral equal air entry. No rales or rhonchi. ABDOMEN: Soft. Positive bowel sounds. Nontender. No ascites. No organomegaly. EXTREMITIES: No clubbing or cyanosis. Pulses are 2+. AV ACCESS: The patient has a left forearm AV fistula, which is being used for dialysis. No problems with the access at this time. 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 Power is 5/5 in all extremities. LABORATORY REVIEW: CBC showed a WBC of 5, hemoglobin 10.9, platelets of 181. BMP showed sodium 140, potassium 4.7, chloride 106, bicarbonate 23, BUN is 41, creatinine is 6.6, albumin is 2.2. MICROBIOLOGY: Blood cultures are negative so far. CURRENT MEDICATIONS: The patient's medications were all reviewed by me. He has been started on aspirin 81 mg by mouth daily, amlodipine 5 mg by mouth daily. There is no other change in the medications today as compared with yesterday. ASSESSMENT: An 86-year-old male with past medical history of end-stage renal disease on hemodialysis, chronic indwelling Posadas catheter, admitted this time with altered mental status. PLAN: 1. Altered mental status and metabolic encephalopathy. There is a possibility of urinary tract infection (UTI). Cultures are pending. The patient is currently not on antibiotic at this time. The patient also got the MRI of the brain done today to rule out possibility of cerebrovascular accident (CVA) and transient ischemic attack (TIA). Official report of MRI is pending. The rest of the workup is as per primary team. 2. End-stage renal disease, on hemodialysis. The patient's regular days are Tuesday, Tuesday, Tuesday. He missed his dialysis yesterday. He is getting his dialysis today. Next hemodialysis session will be on Tuesday. 3. Hypertension. Blood pressure is elevated at this time. His blood pressure would also improve after hemodialysis and ultrafiltration. The patient has already been started on amlodipine 5 mg by mouth daily. The patient was also on metoprolol 25 mg by mouth twice a day at home. If blood pressure remains elevated, then metoprolol can be slowly restarted, as well. 4. Anemia in end-stage renal disease. Hemoglobin is 10.9, which is acceptable at this time. No need of Aranesp administration at this time. 5. Recent cerebrovascular accident. The patient continues to be on aspirin at this time. He got another MRI to rule out evolving stroke. The rest of the management is as per primary team.
--- NOTE | 2017-01-02 14:21 | DSES ---
DATE OF ADMISSION: 12/31/2016 DATE OF DISCHARGE: 01/02/2017 ATTENDING PHYSICIAN: Dr. Kip Garza PRIMARY CARE PHYSICIAN: Dr. Ye Ferris REFERRING PHYSICIAN: None CONSULTING PHYSICIAN: Dr. Desi Bird CONDITION ON DISCHARGE: Stable. PROCEDURES: None. FINAL DIAGNOSIS: Syncope. HISTORY OF PRESENT ILLNESS: Patient is an 86-year-old male with a past medical history of chronic obstructive pulmonary disease (COPD), diastolic congestive heart failure (CHF), end-stage renal disease on hemodialysis Tuesday, Tuesday, Tuesday, urinary retention with indwelling Posadas catheter, history of cerebrovascular accident (CVA) in December 2016, hypothyroidism, and glaucoma, who presented to the emergency room with lethargy at presentation to hemodialysis center. Patient was noted to have a syncopal episode, possibly secondary to urinary tract infection or orthostatic hypotension. HOSPITAL COURSE: 1. Near syncope/syncope, possibly secondary to bradycardia secondary to metoprolol, possibly secondary to chronic indwelling catheter associated UTI, possibly secondary to orthostatic hypotension. Presented with near syncope episode and lethargy. Physical was unrevealing. Urinalysis was consistent with possible infection. Urine cultures remain pending. No leukocytosis or elevation in lactic acid. Orthostatics were positive initially but have normalized. Patient is status post ciprofloxacin in the emergency room and has been on ciprofloxacin as an outpatient. Will continue with ciprofloxacin as an outpatient. Patient was bradycardic but has been taken off metoprolol. Patient had positive orthostatics but is status post finasteride. Physical therapy has evaluated the patient and has cleared the patient for discharge home. 2. Status post bradycardia secondary to metoprolol. Will hold metoprolol. 3. Recent CVA 12/23/2016. MRI that was repeated on this admission was negative for any new infarction. 4. Urinary retention. Has chronic indwelling Posadas catheter. Will followup with urology as an outpatient. 5. Hypertension, status post metoprolol, secondary to bradycardia. Continue with amlodipine 5, and blood pressure has remained well controlled on this new regimen. 6. End-stage renal disease, on hemodialysis Tuesday, Tuesday, Tuesday. Dr. Bird is following. We appreciate their input. 7. History of thrombocytopenia. 8. Rib fracture. CT scan on 12/29/2016 revealed right lateral 8th rib fracture , which is nondisplaced. Denies any recent trauma. Will continue with Tylenol as needed. 9. Hypothyroidism. Continue with levothyroxine. 10. Deep venous thrombosis (DVT) prophylaxis. Continue with sequential compression devices. DISCHARGE MEDICATION: Patient will be discharged home with the following medication list: - Tylenol 1000 mg by mouth every 6 hours as needed pain - aspirin 81 mg by mouth daily - ciprofloxacin 500 mg by daily - Combigan one drop in each twice a day - folic acid 1 mg by mouth daily - ICaps one capsule by mouth daily - levothyroxine 25 mcg by mouth daily - loperamide 2 mg by mouth as needed diarrhea - megestrol 200 mg by mouth daily - Mandie-Musa one tablet by mouth every evening - sevelamer 1600 mg by mouth with meals - travoprost one drop in each eye nightly - vitamin D 50,000 units by mouth every 2 weeks Stopped medications include: - finasteride 5 mg by mouth every evening - metoprolol 25 mg by mouth twice a day New medications include: - amlodipine 5 mg by mouth daily DISCHARGE INSTRUCTIONS: Patient has been advised to followup with his primary care provider, nephrology, and urology within the next 7 days. He has been advised to remain compliant with treatment plan and medications and return to the emergency room if he experiences any problems. TIME SPENT ON DISCHARGE: 35 minutes. Edited: joellen 01/04/2017 1052 MTDD
--- NOTE | 2017-01-02 16:32 | IPN ---
DATE: 01/02/2017 SUBJECTIVE: The patient was seen and examined at the bedside today. He is much more awake and alert. The patient tolerated the hemodialysis procedure well yesterday. The patient also got an MRI of the brain done yesterday, which did not show any acute infarct. He has a recent infarct which was diagnosed on a previous admission, which is in evolution. Otherwise, there was no new acute pathology. REVIEW OF SYSTEMS: The patient denies any fevers, chills, rigors, headaches, nausea, vomiting, chest pain, shortness of breath, pain abdomen, constipation, or diarrhea. Rest of review of systems is negative. OBJECTIVE: VITAL SIGNS: Temperature is 98.3 degrees Fahrenheit, blood pressure is 123/64, pulse is 79, respiratory rate 18, saturating 99% on room air. INTAKE AND OUTPUT: Urine output recorded as 25 mL. The patient got hemodialysis done yesterday as well. 1500 mL of fluid was removed. Weight in the bed scale is 51.5 kg. PHYSICAL EXAMINATION: GENERAL: The patient is awake, alert, oriented times three, lying in bed in no apparent distress. HEAD/NECK: Extraocular muscles intact. Pupils equal, round, and reactive to light. Mucous membranes are moist. Neck supple. There is no jugular venous distention (JVD). CARDIOVASCULAR: S1, S2. Regular rate. No murmur, rub, or gallop. RESPIRATORY: Chest is clear to auscultation bilaterally. Bilateral equal air entry. No rales or rhonchi. ABDOMEN: Soft. Positive bowel sounds. Nontender. No ascites. No organomegaly. EXTREMITIES: No clubbing or cyanosis. Pulses are 2+. 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 Power is 5/5 in all extremities. LABORATORY DATA: CBC showed a WBC of 4.4, hemoglobin 11. BMP showed sodium 141, potassium 4.3, chloride 104, bicarbonate 29, BUN 20, creatinine 4.5, calcium 8.5, albumin 2.2. CURRENT MEDICATIONS: The patient's medications were all reviewed by me. There is no change in the medications today as compared with yesterday. ASSESSMENT: An 86-year-old male with past medical history of end-stage renal disease on hemodialysis, chronic indwelling Posadas catheter, admitted this time because of altered mental status. PLAN: 1. Metabolic encephalopathy. The patient got the MRI done. There was new stroke. His mental status is improved. 2. End-stage renal disease on hemodialysis. The patient's regular dialysis days are Tuesday, Tuesday, Tuesday. No urgent need of hemodialysis today. Next hemodialysis session will be tomorrow as per his regular schedule. 3. Hypertension. Blood pressure is acceptable at this time. Continue current dose of amlodipine 5 mg by mouth daily. If needed, his antihypertensive regimen can be escalated as per outpatient. 4. Bradycardia. The patient's metoprolol was stopped on admission. His bradycardia is improved at this time. 5. Discharge planning: It is okay to discharge the patient from nephrology standpoint. Next hemodialysis session will be as outpatient if patient is discharged home today. Plan of care was discussed with the hospitalist team, Dr. Kip Garza.
== END 2017-01-02 13:57 | disposition home or self-care (01) | DRG 698 ==
LOC: EDBD 11:20 → M ED 13:51 → M ED INP 16:29 → M PCU 18:38
PROVIDERS: ADMIT Internal Medicine; ATTEND Internal Medicine
DX: T83.511A Infection and inflammatory reaction due to indwelling urethral catheter, initial encounter (principal); N18.6 End stage renal disease; G93.41 Metabolic encephalopathy; S22.31XA Fracture of one rib, right side, initial encounter for closed fracture; I50.32 Chronic diastolic (congestive) heart failure; I13.2 Hypertensive heart and chronic kidney disease with heart failure and with stage 5 chronic kidney disease, or end stage renal disease; X58.XXXA Exposure to other specified factors, initial encounter; Y92.89 Other specified places as the place of occurrence of the external cause; Y93.89 Activity, other specified; Y99.9 Unspecified external cause status; R00.1 Bradycardia, unspecified; N39.0 Urinary tract infection, site not specified; I95.9 Hypotension, unspecified; R55 Syncope and collapse; Z86.73 Personal history of transient ischemic attack (TIA), and cerebral infarction without residual deficits; D69.6 Thrombocytopenia, unspecified; Z79.899 Other long term (current) drug therapy; Z79.82 Long term (current) use of aspirin; J44.9 Chronic obstructive pulmonary disease, unspecified; E03.9 Hypothyroidism, unspecified; H40.9 Unspecified glaucoma; D63.1 Anemia in chronic kidney disease

== ENCOUNTER 2017-02-11 14:30 | Emergency (ER) | payer MEDICARE, MEDICAID ==
[~2017-02-11] VITALS: Ht 175.3 cm; Wt 53.9 kg
[~2017-02-11 14:30] MED LIST changes: +AMLO5TAB2 PO; +CIPR500T3 PO; +ERGO500014 PO; +LOPE2TAB PO; +RANI150C PO; +TYLE500T78 PO
[2017-02-11 15:04] LABS: MICROSCOPIC INDICATED? MAN YES (NO)
[2017-02-11 15:15] LABS: BACTERIA, URINE LARGE AMOUNT; HYALINE CAST, URINE NONE SEEN /lpf (0-1); RBC, URINE TNTC /hpf (0-3); WBC, URINE TNTC /hpf (0-3)
[2017-02-11 15:16] LABS: MICROSCOPIC EXAM PERFORMED
[2017-02-11] MEDS ORDERED: BACT800T5 PO (15:23)
[2017-02-11 15:44] VITALS: BP 125/60
== END 2017-02-11 16:00 | disposition home or self-care (01) ==
LOC: M ED 15:42
DX: N39.0 Urinary tract infection, site not specified (principal)

== ENCOUNTER 2017-02-15 11:13 | Emergency (ER) | payer MEDICARE, MEDICAID ==
[~2017-02-15] VITALS: Ht 175.3 cm; Wt 51.8 kg
[~2017-02-15 11:13] MED LIST changes: +BACT800T5 PO
--- NOTE | 2017-02-15 12:01 | REP ---
Clinical: Altered mental status and weakness. Comparison: 12/31/2016 . Findings: Age-related atrophy and microvascular ischemic changes are appreciated. The ventricles and sulci are symmetric. Chan-white differentiation is maintained. There is no evidence for acute intracranial hemorrhage, mass/mass effect, pathology or infarction. No extra-axial fluid collection. Calvarium is intact. Paranasal sinuses and mastoid air cells are clear. Impression: Age related atrophy and microvascular ischemic changes. No acute intracranial hemorrhage, infarction, or mass/mass effect. Signed by Adonis Aleman MD 02/15/2017 11:52 A
[2017-02-15 12:25] LABS: BASO % 0.2 % (0.0-1.0); EOS # 0.2 K/mm3 (0.0-0.50); EOS % 3.8 % (0.0-3.0); LARGE UNSTAINED CELL # 0.2 K/mm3 (0.0-0.4); LARGE UNSTAINED CELL % 3.4 % (0.0-4.0); LYMPH # 1.3 K/mm3 (1.5-4.5); LYMPH % 16.5 % (24.0-44.0); MEAN CORPUSCULAR HEMOGLOBIN 34.3 pg (27.0-33.0); MEAN CORPUSCULAR HGB CONC 32.3 g/dl (32.0-36.5); MONO # 0.6 K/mm3 (0.0-0.8); MONO % 8.4 % (0.0-5.0); NEUTROPHILS # 4.5 K/mm3 (1.8-7.7); NEUTROPHILS % 67.7 % (36.0-66.0); PLATELET COUNT, AUTOMATED 134 k/mm3 (150-450); RED CELL DISTRIBUTION WIDTH 15.8 % (11.5-14.5); WHITE BLOOD COUNT 6.7 K/mm3 (4.0-10.0)
[2017-02-15 12:46] LABS: ALBUMIN 2.9 GM/DL (3.2-5.2); ALBUMIN/GLOBULIN RATIO 0.74 (1.00-1.93); BILIRUBIN,DIRECT 0.1 MG/DL (0.0-0.2); BILIRUBIN,TOTAL 0.4 MG/DL (0.2-1.0); CALCIUM LEVEL 9.3 MG/DL (8.8-10.2); CREATININE FOR GFR 6.03 MG/DL (0.70-1.30); GLOMERULAR FILTRATION RATE 9.5 (>35); POTASSIUM SERUM 4.6 MEQ/L (3.5-5.1); TOTAL PROTEIN 6.8 GM/DL (6.4-8.2)
[2017-02-15 12:56] LABS: INR 0.99
[2017-02-15 14:41] VITALS: BP 112/53
--- NOTE | 2017-02-16 07:32 | ECGEPIP ---
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
== END 2017-02-15 14:54 | disposition home or self-care (01) ==
LOC: M ED 12:25
DX: R53.1 Weakness (principal); I10 Essential (primary) hypertension; Z86.73 Personal history of transient ischemic attack (TIA), and cerebral infarction without residual deficits; Z87.891 Personal history of nicotine dependence; Z99.2 Dependence on renal dialysis

== ENCOUNTER → 2017-02-24 | Outpatient (REF) | payer MEDICARE, MEDICAID ==
[~2017-02-24] MED LIST changes: -ASPI81TA13 PO; +ASPI81TA18 PO; +ASPI81TA24 PO; -ASPI81TA4 PO; +CIPR-249 PO; -CIPR500T89 PO; -FOLI1TAB2 PO; +FOLI1TAB4 PO; +LEVA1TAB PO; +LEVA1TAB2 PO; -LEVA250T PO; -LEVA500T PO; +LEVO250T12 PO; -LEVO250T24 PO; +LOPE2CAP PO; -LOPE2TAB PO; -METO12TA PO; +METO1TAB87 PO; +METO25TA4 PO
== END ==
LOC: M SMT 17:25
PROVIDERS: ATTEND Nurse Practitioner Women's Health
DX: N39.0 Urinary tract infection, site not specified (principal)

== ENCOUNTER → 2017-03-29 | Outpatient (REF) | payer MEDICARE, MEDICAID | LOC: M LAB REF 17:15 | PROVIDERS: ATTEND Internal Medicine Nephrology | DX: R33.9 Retention of urine, unspecified (principal) ==

== ENCOUNTER → 2017-03-31 | Outpatient (CLI) | payer MEDICARE, MEDICAID ==
--- NOTE | 2017-03-31 14:34 | REP ---
Chest two views HISTORY: Shortness of breath Comparison: 12/31/2016 The lungs are hyperinflated. A minimal increase in interstitial markings is present in the lungs. The cardiac silhouette is enlarged. The pulmonary vasculature is normal in appearance. The bony structure is osteopenic. IMPRESSION: 1. Chronic interstitial change. 2. Cardiomegaly. Signed by Timur Jurado MD 03/31/2017 02:26 P
== END ==
LOC: M SMT 14:06
PROVIDERS: ATTEND Internal Medicine Nephrology
DX: R91.8 Other nonspecific abnormal finding of lung field (principal); I51.7 Cardiomegaly

== ENCOUNTER 2017-04-06 08:46 | Inpatient (IN) | payer MEDICARE, MEDICAID ==
[~2017-04-06] VITALS: Ht 175.3 cm; Wt 52.3 kg
[2017-04-06] MEDS ORDERED: NS 1,000 ML IV SCH (09:38)
[2017-04-06 10:15] LABS: BASO # 0.1 K/mm3 (0.0-0.2); BASO % 0.9 % (0.0-1.0); EOS # 0.3 K/mm3 (0.0-0.50); EOS % 3.6 % (0.0-3.0); LARGE UNSTAINED CELL # 0.3 K/mm3 (0.0-0.4); LARGE UNSTAINED CELL % 3.3 % (0.0-4.0); LYMPH # 0.9 K/mm3 (1.5-4.5); LYMPH % 11.9 % (24.0-44.0); MEAN CORPUSCULAR HEMOGLOBIN 34.6 pg (27.0-33.0); MEAN CORPUSCULAR HGB CONC 33.3 g/dl (32.0-36.5); MEAN CORPUSCULAR VOLUME 104.1 fl (80.0-96.0); MONO # 0.5 K/mm3 (0.0-0.8); MONO % 6.4 % (0.0-5.0); NEUTROPHILS # 5.5 K/mm3 (1.8-7.7); NEUTROPHILS % 73.9 % (36.0-66.0); PLATELET COUNT, AUTOMATED 212 k/mm3 (150-450); RED CELL DISTRIBUTION WIDTH 14.9 % (11.5-14.5); WHITE BLOOD COUNT 7.4 K/mm3 (4.0-10.0)
[2017-04-06 10:20] LABS: INR 0.94
[2017-04-06 10:51] LABS: ALBUMIN 2.9 GM/DL (3.2-5.2); ALBUMIN/GLOBULIN RATIO 0.76 (1.00-1.93); BILIRUBIN,DIRECT 0.2 MG/DL (0.0-0.2); BILIRUBIN,TOTAL 0.5 MG/DL (0.2-1.0); CALCIUM LEVEL 9.2 MG/DL (8.8-10.2); CREATININE FOR GFR 8.21 MG/DL (0.70-1.30); GLOMERULAR FILTRATION RATE 6.7 (>35); POTASSIUM SERUM 3.9 MEQ/L (3.5-5.1); TOTAL PROTEIN 6.7 GM/DL (6.4-8.2)
[2017-04-06 13:28] LABS: MEAN CORPUSCULAR HEMOGLOBIN 34.9 pg (27.0-33.0); MEAN CORPUSCULAR HGB CONC 33.5 g/dl (32.0-36.5); MEAN CORPUSCULAR VOLUME 104.2 fl (80.0-96.0); RED CELL DISTRIBUTION WIDTH 14.8 % (11.5-14.5); WHITE BLOOD COUNT 6.5 K/mm3 (4.0-10.0)
[2017-04-06] MEDS ORDERED: IPRATROPIUM 0.5MG/ALBUTEROL 2.5MG INH SOL UD 3ML (DUONEB)(J7620) NEB PRN (16:15)
[2017-04-06] MEDS ORDERED: ONDANSETRON 4MG/2ML VIAL (J2405) IV PRN (16:15)
[2017-04-06] MEDS ORDERED: ACETAMINOPHEN TAB 650MG DOSE (2X325MG) PO PRN (16:15)
--- NOTE | 2017-04-06 17:52 | REP ---
AP PORTABLE CHEST: 04/06/2017 at 04:59 PM. Comparison: 03/31/2017, 12/31/2016. Clinical history, CHF. 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 There is no pleural effusion or definite acute infiltrate. The changes at the posterior right seventh through tenth ribs suggesting healing fractures as seen on 03/31/2017. The heart has left ventricular configuration. There is some venous hypertension without hal edema. Underlying fibrosis makes early interstitial edema difficult to exclude. I do not see any Randolph B lines. Calcified aortic arch without aneurysm. Airway intact. Impression: 1. 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 2. Left ventricular configuration of the heart with some pulmonary venous hypertension, no edema or pleural effusion. 3. Healing right posterior rib fractures with callus formation posterior seventh through tenth ribs. Signed by Ranjeet Maher MD 04/07/2017 08:44 A
[2017-04-06 17:56] LABS: MEAN CORPUSCULAR HEMOGLOBIN 33.6 pg (27.0-33.0); MEAN CORPUSCULAR HGB CONC 32.1 g/dl (32.0-36.5); MEAN CORPUSCULAR VOLUME 104.6 fl (80.0-96.0); RED CELL DISTRIBUTION WIDTH 14.8 % (11.5-14.5); WHITE BLOOD COUNT 7.3 K/mm3 (4.0-10.0)
[2017-04-06 18:15] VITALS: BP 202/93
[2017-04-06] MEDS: (RENVELA) SEVELAMER **CARBONate** 800 MG TAB PO SCH (18:40)
[2017-04-06] MEDS ORDERED: amLODIPine 5 MG TAB As Ordered ONE (18:58)
[2017-04-06] MEDS: amLODIPine 5 MG TAB PO SCH (19:01)
[2017-04-06 20:00] VITALS: BP 159/72
[2017-04-06] MEDS: BRIMONIDINE 0.15% OPHTH SOLN 5 ML OU SCH (21:44)
[2017-04-06] MEDS: TIMOLOL MALEATE 0.5% OPHTH SOLN 5 ML OU SCH (21:45)
[2017-04-06] MEDS: LATANOPROST 0.005% OPHTH SOLN 2.5 ML OU SCH (21:45)
[2017-04-06] MEDS ORDERED: SLF 3 ML SYR IV PRN (21:45)
[2017-04-06] MEDS: SLF 3 ML SYR IV SCH (21:48)
[2017-04-06 23:59] VITALS: BP 91/53
[2017-04-07 00:27] LABS: MEAN CORPUSCULAR HEMOGLOBIN 33.6 pg (27.0-33.0); MEAN CORPUSCULAR HGB CONC 32.4 g/dl (32.0-36.5); MEAN CORPUSCULAR VOLUME 103.5 fl (80.0-96.0); RED CELL DISTRIBUTION WIDTH 15.3 % (11.5-14.5); WHITE BLOOD COUNT 6.9 K/mm3 (4.0-10.0)
[2017-04-07 01:00] VITALS: BP 108/58
[2017-04-07 04:00] VITALS: BP 156/52
[2017-04-07 05:56] LABS: MEAN CORPUSCULAR HEMOGLOBIN 34.7 pg (27.0-33.0); MEAN CORPUSCULAR HGB CONC 33.2 g/dl (32.0-36.5); MEAN CORPUSCULAR VOLUME 104.4 fl (80.0-96.0); WHITE BLOOD COUNT 6.6 K/mm3 (4.0-10.0)
[2017-04-07 06:21] LABS: ALBUMIN 2.4 GM/DL (3.2-5.2); CALCIUM LEVEL 8.5 MG/DL (8.8-10.2); CREATININE FOR GFR 9.4 MG/DL (0.70-1.30); GLOMERULAR FILTRATION RATE 5.7 (>35); PHOSPHORUS LEVEL 3.8 MG/DL (2.5-4.9); POTASSIUM SERUM 4.2 MEQ/L (3.5-5.1)
[2017-04-07] MEDS: LEVOTHYROXINE 25MCG TABLET (0.025MG) PO SCH (06:21)
[2017-04-07] MEDS: SLF 3 ML SYR IV SCH ×3 (06:23→21:45)
[2017-04-07] MEDS: (RENVELA) SEVELAMER **CARBONate** 800 MG TAB PO SCH ×3 (06:23→17:20)
[2017-04-07] MEDS: amLODIPine 5 MG TAB PO SCH ×2 (06:24→21:44)
[2017-04-07] MEDS: BRIMONIDINE 0.15% OPHTH SOLN 5 ML OU SCH ×2 (06:25→21:00)
[2017-04-07] MEDS: LATANOPROST 0.005% OPHTH SOLN 2.5 ML OU SCH (06:25)
[2017-04-07] MEDS: TIMOLOL MALEATE 0.5% OPHTH SOLN 5 ML OU SCH ×2 (06:25→21:00)
[2017-04-07 07:30] VITALS: BP 109/53
[2017-04-07] MEDS: FOLIC ACID 1 MG TAB PO SCH (08:08)
[2017-04-07] MEDS: MEGESTROL SUSP 400 MG/10 ML UDC PO SCH (08:08)
--- NOTE | 2017-04-07 13:16 | HPE ---
DATE OF ADMISSION: 04/06/2017 This is a patient of Dr. Posey. PRIMARY CARE: Dr. Ye Ferris SUPPORT SERVICES SPECIALIST: Dr. Zimmerman. He sees pulmonary associates and follows with urology. CHIEF COMPLAINT: He had a diaper full of blood today. This is an 86-year-old end-stage renal disease on hemodialysis, who has a chronic catheter and took his diaper off today and found a large bloody bowel movement. He has not problems with bleeding from his rectum previously. He had a remote colonoscopy, which he remembers as being between 2009 and 2010. In reviewing medical records, it would appear as though that would have been [address] Longoria[address] He had diverticulosis and polyps, non-bleeding internal hemorrhoids. At that time, also he had a esophagogastroduodenoscopy (EGD) for melena, but showed a hiatal hernia. He has not had any pain in his abdomen. He did take his medicine today. He did not have dialysis today and his schedule is Tuesday, Tuesday and Tuesday. PAST MEDICAL HISTORY: Notable for chronic obstructive pulmonary disease (COPD), diastolic congestive heart failure (CHF), end-stage renal disease, chronic urinary retention, indwelling Posadas, history of cerebrovascular accident (CVA), unsteady gait, hypothyroidism, glaucoma. PAST SURGICAL HISTORY: Notable for arteriovenous (AV) fistula in his left arm, left hip repair. SOCIAL HISTORY: He lives in [place]. He is a life long [facility] resident. Quit smoking many years ago. Does not use any alcohol. FAMILY HISTORY: Unremarkable due to advanced age. REVIEW OF SYSTEMS: Notable for no headache, no visual changes, no runny nose or sore throat. No cough. Is not presently shortness of breath. No chest pain, no abdominal pain, nausea, no vomiting. History of anemia at the start of dialysis, otherwise unremarkable. PHYSICAL EXAMINATION: This is an 86-year-old who appears his stated age. He is somewhat hard of hearing, awake and pleasantly conversant. Temperature is 98.6, pulse 92, respiratory rate is 20, blood pressure is 200/70, pulse oximetry 99% on room air. Input and output notable for net fluid status of 270 thus far this admission. Body mass index (BMI) is 16.9. Head is normocephalic. He has poor dentition. Pupils equally round and reactive. Mucous membranes are moist. Neck is supple. He is thin appearing. Breathing symmetrical. Diminished in the bases. I:E ratio is 1 to 3, no wheezes. Speaking in complete sentences. No accessory muscle use. Heart distant sounding. Normal S1, S2. Appears to be in a regular rate and rhythm. Not tachycardiac on my exam. Abdomen soft, doughy, nontender. He has a fistula noted in his left forearm. No lower extremity edema. Normal mood and affect. White cell count 6.5, hemoglobin 10.8 and platelets of 193. BUN 28, creatine 8.2, INR 0.94. Electrocardiogram (EKG) shows sinus rhythm with first degree AV block. He had no imaging during this stay. ALLERGIES: No known drug allergies. Medications which are listed as: Aspirin, Combigan, folic acid, ICaps, Synthroid, Megace, Mandie-Musa, sevelamer, Travatan Z, vitamin D, Tylenol and loperamide as needed. My assessment is as follows: This is an 86-year-old with lower gastrointestinal (GI) bleed, end-stage renal disease on hemodialysis. He missed dialysis today found to be hypertensive on aspirin with possibility of continued bleeding. The patient will be admitted for two midnight hospital stay. Plans will be as follows: 1. Lower gastrointestinal (GI) bleed. The patient was examined rectally by the emergency physician and found to have brown heme positive stool. He does not appear to be anemic or bleeding grossly at this point. He is on aspirin, it should be held. Will monitor him clinically with serial complete blood counts (CBCs). If he does require transfusion, he may also require urgent dialysis. 2. The patient has end-stage renal disease on dialysis. He has missed his dialysis today. His blood pressure is elevated. Will look to pursue a better blood pressure control currently. 3. The patient has a history of chronic obstructive pulmonary disease (COPD). He does not appear decompensated, is not on chronic oxygen at home. Will make nebulizers available as needed. 4. The patient has a history of diastolic congestive heart failure (CHF), which appears to be compensated. 5. The patient has chronic urinary retention. He has an indwelling Posadas, which will be continued. 6. The patient has hypothyroidism, will add thyroid simulating hormone (TSH) for the morning. 7. The patient has glaucoma. Continue with home medications. 8. Deep vein thrombosis (DVT) prophylaxis will be SCDs and TEDs in the setting of possible gastrointestinal (GI) bleed. 9. Most likely this represents a diverticular bleed and will not require significant intervention. It may be reasonable to pursue colonoscopy as an outpatient if he does not rebleed.
--- NOTE | 2017-04-07 15:40 | IPNPDOC ---
Text Note Date of Service The patient was seen on 04/07/17. NOTE Subjective: Patient is an 86 year old male with a PMHx of COPD, Diastolic CHF, ESRD on HD (MWF), Urinary retention with indwelling Posadas, Hx of CVA, Unsteady gait, Hypothyroidism and Glaucoma who presented to the ER with complaints of blood in his diaper. Patient has noted that he has not had prior bleeding episodes. He noted that he had a colonoscopy >[address] Longoria. He had diverticulosis, polyps and non-bleeding internal hemorrhoids. He also had an EGD done that revealed a hiatal hernia. Patient had missed his scheduled HD for Tuesday (04/06) and received a dialysis session today (04/07). Patient was seen and examined at the bedside. Currently he denies any other episodes of rectal bleeding. Denies any nausea, vomiting, shortness of breath, chest pain or palpitations. Objective: Vitals (See below) General: Lying in bed, no acute distress, comfortable, AAOx3 HEENT: NC, AT CVS: RRR, Possible systolic murmur Lungs: Fair air entry b/l, no appreciable crackles / wheezing Abdomen: Soft, ND, NT, +BSx4 Extremities: - Edema, - Calf tenderness, L forearm fistula Assessment and plan: 1. Dark blood in stool - likely 2/2 lower GI bleeding - likely 2/2 diverticulosis, possible hemorrhoids - Presented with a 1 day history of rectal bleeding - Physical unrevealing - History of colonoscopy in the past with diverticulosis, polyps and internal hemorrhoids - Hg has remained stable throughout hospital course; No transfusions required at this point - Will continue to trend hemoglobin - Will give referral for outpatient colonoscopy if Hg remains stable 2. ESRD on HD (MWF) - Missed HD on 04/06 - Received HD on 04/07 - Will return back to regular schedule on 04/08 - Nephrology (Dr. Amaral) following; appreciate their input 3. COPD, Chronic - No evidence of exacerbation - No use of oxygen - c/w inhaled therapy (Duoneb) from home 4. Diastolic CHF, Compensated - No evidence of fluid overload at this time 5. Chronic urinary retention - c/w indwelling Posadas catheter 6. Hypothyroidism - c/w Levothyroxine 7. Glaucoma - c/w/ Latanoprost and Timolol drops 8. DVT prophylaxis - c/w SCDs VS,Fishbone, I+O VS, Fishbone, I+O Laboratory Tests 04/06/17 17:50 Red Blood Count 3.39 L, Mean Corpuscular Volume 104.6 H, Mean Corpuscular Hemoglobin 33.6 H, Mean Corpuscular Hemoglobin Concent 32.1, Red Cell Distribution Width 14.8 H 04/07/17 00:15 Red Blood Count 2.97 L, Mean Corpuscular Volume 103.5 H, Mean Corpuscular Hemoglobin 33.6 H, Mean Corpuscular Hemoglobin Concent 32.4, Red Cell Distribution Width 15.3 H 04/07/17 05:21 Red Blood Count 3.07 L, Mean Corpuscular Volume 104.4 H, Mean Corpuscular Hemoglobin 34.7 H, Mean Corpuscular Hemoglobin Concent 33.2, Red Cell Distribution Width 15.0 H, Anion Gap 12 Vital Signs Date Time Temp Pulse Resp B/P (MAP) Pulse Ox O2 Delivery O2 Flow Rate FiO2 04/07/17 07:30 97.7 77 20 109/53 (71) 97 Room Air I&O- Last 24 Hours up to 6 AM 04/07/17 06:00 Intake Total 390 ml Output Total 200 ml Balance 190 ml KAVIN MONREAL MD Apr 07, 2017 15:40
[2017-04-07 16:00] VITALS: BP 132/60
[2017-04-07 20:00] VITALS: BP 119/58
[2017-04-07 23:59] VITALS: BP 137/64
[2017-04-08 04:00] VITALS: BP 134/66
[2017-04-08 05:42] LABS: MEAN CORPUSCULAR HEMOGLOBIN 33.9 pg (27.0-33.0); MEAN CORPUSCULAR HGB CONC 32.7 g/dl (32.0-36.5); MEAN CORPUSCULAR VOLUME 103.8 fl (80.0-96.0); RED CELL DISTRIBUTION WIDTH 15.4 % (11.5-14.5); WHITE BLOOD COUNT 6.6 K/mm3 (4.0-10.0)
[2017-04-08] MEDS: SLF 3 ML SYR IV SCH ×3 (05:50→20:08)
[2017-04-08] MEDS: LEVOTHYROXINE 25MCG TABLET (0.025MG) PO SCH (05:50)
[2017-04-08 05:52] LABS: ALBUMIN 2.7 GM/DL (3.2-5.2); CALCIUM LEVEL 9.2 MG/DL (8.8-10.2); CREATININE FOR GFR 5.44 MG/DL (0.70-1.30); GLOMERULAR FILTRATION RATE 10.7 (>35); PHOSPHORUS LEVEL 2.6 MG/DL (2.5-4.9); POTASSIUM SERUM 3.8 MEQ/L (3.5-5.1)
[2017-04-08] MEDS: (RENVELA) SEVELAMER **CARBONate** 800 MG TAB PO SCH ×3 (07:33→17:09)
[2017-04-08] MEDS: FOLIC ACID 1 MG TAB PO SCH (07:33)
[2017-04-08] MEDS: MEGESTROL SUSP 400 MG/10 ML UDC PO SCH (07:34)
[2017-04-08] MEDS: TIMOLOL MALEATE 0.5% OPHTH SOLN 5 ML OU SCH ×2 (07:35→20:08)
[2017-04-08] MEDS: BRIMONIDINE 0.15% OPHTH SOLN 5 ML OU SCH ×2 (07:35→20:08)
[2017-04-08] MEDS: amLODIPine 5 MG TAB PO SCH ×2 (07:35→20:08)
[2017-04-08 08:00] VITALS: BP 179/75
--- NOTE | 2017-04-08 08:16 | ECGEPIP ---
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
[2017-04-08 12:00] VITALS: BP 131/60
--- NOTE | 2017-04-08 13:31 | IPNPDOC ---
Text Note Date of Service The patient was seen on 04/08/17. NOTE Subjective: Patient is an 86 year old male with a PMHx of COPD, Diastolic CHF, ESRD on HD (MWF), Urinary retention with indwelling Posadas, Hx of CVA, Unsteady gait, Hypothyroidism and Glaucoma who presented to the ER with complaints of blood in his diaper. Patient has noted that he has not had prior bleeding episodes. He noted that he had a colonoscopy >[address] Longoria. He had diverticulosis, polyps and non-bleeding internal hemorrhoids. He also had an EGD done that revealed a hiatal hernia. Patient had missed his scheduled HD for Tuesday (04/06) and received a dialysis session today (04/07). Patient was seen and examined at the bedside. He notes that he has received dialysis yesterday, will be going again today to return to regular schedule. He denies any SOB, chest pain or palpitations. He has not had any further episodes of blood in his stool. Objective: Vitals (See below) General: Lying in bed, no acute distress, comfortable, AAOx3 HEENT: NC, AT CVS: RRR, Possible systolic murmur Lungs: Fair air entry b/l, no appreciable crackles / wheezing Abdomen: Soft, ND, NT, +BSx4 Extremities: - Edema, - Calf tenderness, L forearm fistula Assessment and plan: 1. Dark blood in stool - likely 2/2 lower GI bleeding - likely 2/2 diverticulosis, possible hemorrhoids - Presented with a 1 day history of rectal bleeding; has [id number] - Physical unrevealing - History of colonoscopy in the past with diverticulosis, polyps and internal hemorrhoids - Hg remains stable without requirement for transfusions - Will give referral for outpatient colonoscopy 2. ESRD on HD (MWF) - Missed HD on 04/06 - Received HD on 04/07 - Plan for HD today to return to regular schedule - Nephrology (Dr. Amaral) following; appreciate their input 3. COPD, Chronic - No evidence of exacerbation - No use of oxygen - c/w inhaled therapy (Duoneb) from home 4. Diastolic CHF, Compensated - No evidence of fluid overload at this time 5. Chronic urinary retention - c/w indwelling Posadas catheter 6. Hypothyroidism - c/w Levothyroxine 7. Glaucoma - c/w/ Latanoprost and Timolol drops 8. DVT prophylaxis - c/w SCDs VS,Fishbone, I+O VS, Fishbone, I+O Laboratory Tests 04/08/17 05:11 Red Blood Count 3.28 L, Mean Corpuscular Volume 103.8 H, Mean Corpuscular Hemoglobin 33.9 H, Mean Corpuscular Hemoglobin Concent 32.7, Red Cell Distribution Width 15.4 H, Anion Gap 10 Vital Signs Date Time Temp Pulse Resp B/P (MAP) Pulse Ox O2 Delivery O2 Flow Rate FiO2 04/08/17 12:00 98.7 103 20 131/60 (83) 97 04/08/17 08:00 Room Air I&O- Last 24 Hours up to 6 AM 04/08/17 05:59 Intake Total 600 ml Output Total 1500 ml Balance -900 ml KAVIN MONREAL MD Apr 08, 2017 13:31
[2017-04-08 17:00] VITALS: BP 166/75
[2017-04-08] MEDS: LATANOPROST 0.005% OPHTH SOLN 2.5 ML OU SCH (20:08)
[2017-04-08 22:00] VITALS: BP 135/60
--- NOTE | 2017-04-09 05:29 | IPN ---
DATE OF SERVICE: 04/07/2017 Mr. Dubois is seen this morning during hemodialysis. He was admitted yesterday with rectal bleeding. He denies any nausea or vomiting this morning. He has no dyspnea, chest pain, fever or chills. PHYSICAL EXAMINATION: Temperature 97.7 degrees Fahrenheit, heart rate 78 per minute and respiratory rate 20 per minute. Blood pressure 109/53 mmHg and oxygen saturation 97%. His labs have been reviewed this morning. His hemoglobin is 10.7 and hematocrit 32. Sodium 142 and potassium 4.2. BUN is 35 and creatinine 9.4. PROBLEMS: 1. End-stage renal disease. The patient is being dialyzed this morning and he is tolerating dialysis well. Electrolytes are all within normal range and volume status is well-compensated. 2. Rectal bleeding. His hematocrit has remained relatively stable. We are not using any heparin during dialysis today. He denies any further bleeding since admission. 3. Anemia. His anemia is stable at this point and we will continue to monitor. No urgent intervention is indicated.
[2017-04-09] MEDS: SLF 3 ML SYR IV SCH (05:52)
[2017-04-09] MEDS: LEVOTHYROXINE 25MCG TABLET (0.025MG) PO SCH (05:52)
[2017-04-09 06:00] VITALS: BP 110/52
[2017-04-09 06:41] LABS: MEAN CORPUSCULAR HEMOGLOBIN 34.1 pg (27.0-33.0); MEAN CORPUSCULAR HGB CONC 32.6 g/dl (32.0-36.5); MEAN CORPUSCULAR VOLUME 104.6 fl (80.0-96.0); RED CELL DISTRIBUTION WIDTH 15.2 % (11.5-14.5); WHITE BLOOD COUNT 6.7 K/mm3 (4.0-10.0)
[2017-04-09 06:44] LABS: ALBUMIN 2.5 GM/DL (3.2-5.2); CALCIUM LEVEL 9.3 MG/DL (8.8-10.2); CREATININE FOR GFR 4.16 MG/DL (0.70-1.30); GLOMERULAR FILTRATION RATE 14.6 (>35); PHOSPHORUS LEVEL 2.5 MG/DL (2.5-4.9); POTASSIUM SERUM 3.6 MEQ/L (3.5-5.1)
[2017-04-09] MEDS: MEGESTROL SUSP 400 MG/10 ML UDC PO SCH (08:16)
[2017-04-09 08:17] VITALS: BP 122/68
[2017-04-09] MEDS: FOLIC ACID 1 MG TAB PO SCH (08:17)
[2017-04-09] MEDS: amLODIPine 5 MG TAB PO SCH (08:17)
[2017-04-09] MEDS: BRIMONIDINE 0.15% OPHTH SOLN 5 ML OU SCH (08:22)
[2017-04-09] MEDS: TIMOLOL MALEATE 0.5% OPHTH SOLN 5 ML OU SCH (08:22)
[2017-04-09] MEDS ORDERED: AMLO5TAB2 PO (10:12)
--- NOTE | 2017-04-09 11:47 | CR ---
DATE OF CONSULTATION: 04/07/2017 Nephrology consultation for Keon Villanueva MD. REASON FOR CONSULTATION: To assist in the management of end-stage renal disease. HISTORY OF PRESENT ILLNESS: Mr. Dubois is an 86-year-old gentleman with multiple chronic medical problems, including end-stage renal disease, congestive heart failure, chronic obstructive pulmonary disease (COPD), and prior stroke. He was admitted yesterday. The patient was due for hemodialysis yesterday, which he missed, and a nephrology consultation was requested. The patient is seen this morning. PAST MEDICAL AND SURGICAL HISTORY: Significant for: 1. Longstanding history of hypertension. 2. End-stage renal disease. 3. Chronic diastolic congestive heart failure. 4. COPD. 5. History of urinary retention, status post indwelling Posadas catheter. 6. History of prior stroke. 7. Hypothyroidism. 8. Glaucoma. 9. Anemia of chronic kidney disease. 10. History of recurrent aspiration pneumonia. PAST SURGICAL HISTORY: Is significant for left arm AV fistula creation and left hip replacement. ALLERGIES: The patient has no known drug allergies. PERSONAL AND SOCIAL HISTORY: The patient has history of smoking in the past. He does not smoke at present. There is no history of alcohol or drug use. FAMILY HISTORY: Is negative for end-stage renal disease. MEDICATIONS: His current medications in the hospital include: - Tylenol 650 mg as needed for pain - amlodipine 5 mg twice a day - Alphagan eyedrops one drop in each eye twice a day - DuoNebs every 6 hours as needed for dyspnea - folic acid 1 mg daily - Xalatan eyedrops 0.005% on both eyes at bedtime - levothyroxine 25 mcg daily - Megace 200 mg daily - Zofran 4 mg as needed for nausea - Renvela 1600 mg with each meal - timolol eye drops one drop in each eye twice a day REVIEW OF SYSTEMS: The patient denies any fever or chills. He is mildly hard of hearing. Nose and throat are unremarkable. He denies any headache. Cardiovascular system is negative for chest pain or dyspnea. Respiratory system is negative for cough or hemoptysis. He does have history of COPD. Gastrointestinal (GI) system is significant for history of rectal bleeding yesterday. He denies any nausea or vomiting. There is no abdominal pain or black-colored stools. Genitourinary () system is significant for urinary retention with chronic Posadas catheter placement. Musculoskeletal system is negative for any leg edema. He does have chronic back pain and degenerative arthritis. Endocrine system is significant for hypothyroidism and secondary hyperparathyroidism. There is no history of diabetes. Psychosocial system is significant for mild depression. There is no anxiety, and he denies insomnia. Neurological system is significant for prior stroke without any significant residual weakness. Hematological system is significant for anemia of chronic kidney disease. He is not on any anticoagulation. PHYSICAL EXAMINATION: The patient is awake and at about his baseline mentation. Temperature 98 degrees Fahrenheit, heart rate 78 per minute, and respiratory rate 20 per minute. Blood pressure 109/54 mmHg and oxygen saturation 97% on room air. Head is atraumatic. Neck is supple and without any jugular venous distention (JVD) or thyroid enlargement. Pupils are small and equal bilaterally. Sclerae anicteric. Heart sounds are regular. Lungs with slightly diminished breath sounds at bases. There are a few basilar rales. Abdomen is soft and nontender and without palpable organomegaly. Extremities: Have no cyanosis or clubbing. Left forearm AV fistula is functioning well. There is no peripheral edema. Neurologically, he is awake, alert, and oriented times three. LABORATORY DATA: Yesterday on admission, his hemoglobin was 12 and hematocrit 36. Four hours later, his hemoglobin was down to 10.8 and hematocrit 32. At midnight, his hemoglobin was 10.0 and hematocrit 30.7. Today, his hemoglobin is 10.7 and hematocrit 32.1. Sodium is 142 and potassium 4.2. BUN 35 and creatinine 9.40. PROBLEMS: 1. End-stage renal disease. The patient is being dialyzed today, as he missed his dialysis yesterday. He is tolerating his dialysis treatment well. We are removing about 1.5 liters of fluid. No heparin is being used during dialysis in view of his rectal bleeding yesterday. 2. Rectal bleeding. He did have mild drop in his hemoglobin and hematocrit. Since yesterday, he has been stable without any further active bleeding. At present, we will monitor, and there is no indication for transfusion. 3. Hypertension. His blood pressure has been very well controlled and, in fact, slightly low this morning. We will continue to monitor. He is being dialyzed today. 4. Diastolic congestive heart failure. His volume status is very well compensated and does not need any further intervention other than dialysis. We are removing 1.5 liters of fluid today. I thank you for involving me in the care of Mr. Dubois. I will follow him along with you.
--- NOTE | 2017-04-10 20:38 | DSES ---
DATE OF ADMISSION: 04/06/2017 DATE OF DISCHARGE: 04/09/2017 PRIMARY CARE PHYSICIAN: Dr. Ye Ferris REFERRING PHYSICIAN: None. CONSULTED PHYSICIAN: Dr. Amaral CONDITION ON DISCHARGE: Stable. FINAL DIAGNOSIS: Dark blood in stool, likely secondary to lower gastrointestinal bleed, likely secondary to diverticular bleeding, possible hemorrhoid, less likely malignancy. PROCEDURES: None. HISTORY OF PRESENT ILLNESS: Patient is an 86-year-old male with a past medical history of chronic obstructive pulmonary disease (COPD), diastolic congestive heart failure, end-stage renal disease, on hemodialysis Tuesday, Tuesday, Tuesday, urinary retention with indwelling Posadas, history of cerebrovascular accident (CVA), unsteady gait, hypothyroidism, and glaucoma, presented to the emergency room (ER) with complaints of blood in his diaper. Patient has noted that he has not had prior bleeding episodes. He noted that he had a colonoscopy greater than [address] Barriga. He had diverticulosis, polyps, and nonbleeding internal hemorrhoids at that point. He also had an esophagogastroduodenoscopy (EGD) done, which revealed a hiatal hernia. Upon arrival, patient had missed his hemodialysis, which was scheduled on April 06. He received hemodialysis on subsequent day of April 07, and on April 08 he received hemodialysis to put him back on regular scheduled sessions. HOSPITAL COURSE: 1. Dark blood in stool, likely secondary to lower gastrointestinal (GI) bleed, likely secondary to diverticular bleed, possibly internal hemorrhoids, less likely secondary to malignancy. Presented with a 1-day history of rectal bleeding, which has resolved. Physical is unrevealing. History of colonoscopy in the past with diverticulosis, polyps and internal hemorrhoid. Hemoglobin has remained stable without the requirement of transfusion. Patient was given referral for outpatient colonoscopy upon discharge, because his hemoglobin has remained stable and has not had any further bleeding episodes. 2. End-stage renal disease, on hemodialysis Tuesday, Tuesday, Tuesday. Missed hemodialysis on April 06. Received hemodialysis on April 07 and April 08. Plan for hemodialysis to be returned to regular schedule on Tuesday. Nephrology, Dr. Amaral consulted. We appreciate the input. 3. Chronic obstructive pulmonary disease (COPD), which has been chronic. No evidence of an exacerbation. No use of oxygen. Continue with inhaled therapy with DuoNeb. 4. Diastolic congestive heart failure (CHF). Well compensated. No evidence of fluid overload at this time. 5. Chronic urinary retention. Continue with indwelling Posadas catheter. 6. Hypothyroidism. Continue levothyroxine. 7. Glaucoma. Continue with latanoprost and timolol drops. 8. Deep vein thrombosis (DVT) prophylaxis. Continue with sequential compression devices. DISCHARGE MEDICATIONS: Patient is being discharged home on the following medication list: New medications prescribed include: - amlodipine 5 mg by mouth twice a day Continued medications include: - Tylenol 100 mg by mouth every 6 hours as needed for pain - aspirin 81 mg by mouth daily - Combigan one drop in each eye twice a day - Folic acid 1 mg by mouth daily - I-Caps one capsule by mouth daily - levothyroxine 25 mcg by mouth daily - loperamide 2 mg by mouth as needed for diarrhea - megestrol 200 mg by mouth daily - Mandie-Musa one tablet by mouth every evening - Sevelamer 1600 mg by mouth with meals - travoprost one drop in each eye at bedtime - vitamin D 50,000 units by mouth two times a week DISCHARGE INSTRUCTIONS: Patient has been advised to followup with his primary care provider for referral for colonoscopy within the next 7 days. He has been advised to remain compliant with treatment plan and medications and return to the emergency room if he experiences any problems. TIME SPENT ON DISCHARGE: Greater than 35 minutes.
--- NOTE | 2017-04-10 20:43 | IPN ---
DATE: 04/08/2017 SUBJECTIVE: Mr. Dubois is seen during hemodialysis this afternoon. He was dialyzed yesterday due to missed dialysis treatment on Tuesday. Today is his regular dialysis day so we are dialyzing him again today in order to get him back on his regular schedule. The patient is feeling well and denies any further rectal bleeding. He has no nausea or vomiting and reports that he ate well. He denies any dyspnea, chest pain, fever or chills. PHYSICAL EXAMINATION: Temperature 96.8 degrees Fahrenheit, heart rate 103 per minute and respiratory rate 20 per minute. Blood pressure 130/60 mmHg and oxygen saturation 97% on room air. Head is atraumatic. Neck is supple and without jugular venous distention (JVD) or thyroid enlargement. There is no oral thrush or ulcers. Pupils equal and reactive to light and sclerae are anicteric. Heart sounds are regular and lungs with few basilar crepitations. Abdomen is soft and nontender and without a palpable organomegaly. Bowel sounds are normal. Extremities have no cyanosis or clubbing. Skin has no rash or ulcers. Neurologically he is awake, alert and at his baseline mentation. LABORATORY DATA: Today's labs show WBC count 6.6, hemoglobin 11.1 and hematocrit 34.1. Platelets 169. Sodium 142 and potassium 3.8. BUN 15 and creatinine 5.44. A calcium level is 9.2 and phosphorus 2.6. (DICTATION ENDED ABRUPTLY)
--- NOTE | 2017-04-11 06:47 | IPN ---
DATE: 04/09/2017 SUBJECTIVE: The patient was seen and examined at the bedside today morning. He was sleeping. I woke him up. He was totally comfortable. He did not have any active complaints. REVIEW OF SYSTEMS: The patient denies any fevers, chills, rigors, headaches, nausea, vomiting, chest pain, shortness of breath. Rest of review of systems is negative. OBJECTIVE: VITAL SIGNS: Temperature is 98 degrees Fahrenheit, blood pressure is 110/52, pulse is 87, respiratory rate of 18, saturating 98% on room air. INTAKE AND OUTPUT: Urine output is recorded as zero overnight. Ultrafiltration with hemodialysis was one liter yesterday. Weight in the bed scale is 52.3 kg. PHYSICAL EXAMINATION: GENERAL: The patient is awake, alert, and oriented times two, lying in bed in no apparent distress. HEAD/NECK: Extraocular muscles intact. Pupils equal, round, and reactive to light. Mucous membranes are moist. Neck is supple. There is no jugular venous distention (JVD). CARDIOVASCULAR: S1, S2 regular rate, no murmur, rub, or gallop. RESPIRATORY: Chest is clear to auscultation bilaterally. Bilateral equal air entry. No rales or rhonchi. ABDOMEN: Soft. Positive bowel sounds. Nontender. No ascites. No organomegaly. MUSCULOSKELETAL: No clubbing or cyanosis. Pulses are 2+. CENTRAL NERVOUS SYSTEM ([employer] RO[employer]): No focal deficit. Power is 5/5 in bilateral upper extremities. LABORATORY DATA: CBC showed a WBC of 6.7, hemoglobin 11. BMP shows sodium 139, potassium 3.6, chloride 103, bicarbonate 31, BUN 12, creatinine 4.1, albumin 2.5. CURRENT INPATIENT MEDICATIONS: The patient's medications were all reviewed by me. There is no change in the medications today as compared with yesterday, except that his Renvela has been stopped because of low phosphorus levels. ASSESSMENT: 86-year-old male with past medical history of end-stage renal disease on hemodialysis, admitted this time because of rectal bleeding. PLAN: 1. End-stage renal disease on hemodialysis: The patient was dialyzed according to his Tuesday, Tuesday, Tuesday schedule. There is no urgent need of dialysis today. Electrolytes are within normal range. 2. Rectal bleeding: The patient's hemoglobin is stable at this time at 11. Further workup of the rectal bleeding including colonoscopy will be done as outpatient. 3. Hypertension: Blood pressure is acceptable at this time. Continue current dose of amlodipine 5 mg by mouth twice a day. 4. Discharge planning: It is okay to discharge the patient from nephrology standpoint. Next hemodialysis session will be as outpatient on 04/11/2017.
== END 2017-04-09 12:55 | disposition home or self-care (01) | DRG 377 ==
LOC: M ED 08:46 → M ED INP 16:01 → M PCU 18:13 → M MSPAV 04-08 18:59
PROVIDERS: ADMIT Internal Medicine; ATTEND Internal Medicine
DX: K57.91 Diverticulosis of intestine, part unspecified, without perforation or abscess with bleeding (principal); N18.6 End stage renal disease; I50.32 Chronic diastolic (congestive) heart failure; I13.2 Hypertensive heart and chronic kidney disease with heart failure and with stage 5 chronic kidney disease, or end stage renal disease; J44.9 Chronic obstructive pulmonary disease, unspecified; Z99.2 Dependence on renal dialysis; E03.9 Hypothyroidism, unspecified; H40.9 Unspecified glaucoma; Z86.73 Personal history of transient ischemic attack (TIA), and cerebral infarction without residual deficits; R33.9 Retention of urine, unspecified; Z96.0 Presence of urogenital implants; Z79.82 Long term (current) use of aspirin; Z79.899 Other long term (current) drug therapy; Z87.891 Personal history of nicotine dependence

== ENCOUNTER → 2017-05-31 | Outpatient (CLI) | payer MEDICARE, MEDICAID ==
--- NOTE | 2017-05-31 11:18 | REP ---
CT of the chest without IV contrast: Comparisons are 03/16/2016 and 12/29/2016. The left upper lobe ground-glass density identified on 03/16 2016 is no longer present. There was no longer present and 12/29/2016. The bilateral lower lobe infiltrates associated with some nodularity on 2015 has significantly decreased in size and nodular is almost entirely resolved. The appearance is unchanged from 12/29/2016. Findings are consistent with parenchymal scarring. The previous pleural effusions have resolved. There are multiple healed nondisplaced right rib fractures. These are unchanged. There are no new nodules or masses. There are no acute infiltrates or effusions. There is no mediastinal adenopathy. In the absence of IV contrast the study is insensitive for hilar adenopathy. There is no axillary adenopathy. Thoracic aorta is unremarkable except for calcified atheroma. Cardiac size is normal. There is no pericardial effusion. There is marked bilateral renal cortical atrophy of the visualized renal upper poles. This is unchanged from both prior studies. There is a nonobstructive calculus lower pole left kidney, also unchanged from both prior studies. Impression: The ground-glass density identified previously in the left upper lobe has resolved. The linear densities associated with some nodularity in the lower lobes bilaterally have decreased in size, compatible with scarring. There are no pleural effusions. There are no acute infiltrates. No new nodules or masses. No adenopathy. Healed rib fractures on the right are again identified. Bilateral renal cortical atrophy is again identified. Nonobstructive left renal calculus is again identified. Signed by Yoshi Beasley MD 05/31/2017 11:09 A
== END ==
LOC: M RAD 10:29
PROVIDERS: ATTEND Internal Medicine Pulmonary Disease
DX: R91.8 Other nonspecific abnormal finding of lung field (principal)

== ENCOUNTER → 2017-07-12 | Outpatient (CLI) | payer MEDICARE, MEDICAID ==
[~2017-07-12] MED LIST changes: +ACET30TAB PO; +CIPR-250 PO; +MACR100C43 PO
--- NOTE | 2017-07-12 15:09 | REP ---
CHEST, TWO VIEWS: COMPARISON: Two views of the chest are performed and compared to prior study of 03/31/2017. There is diffuse interstitial fibrotic change which appears stable. No definite superimposed acute infiltrate is seen. Heart is normal in size. There is calcification of the thoracic aorta. The mediastinal silhouette is unchanged. There are old bilateral healing rib fractures. There are degenerative changes of the spine. IMPRESSION: Chronic fibrotic changes without definite acute infiltrate. Signed by Yoshi Chan MD 07/12/2017 05:07 P
== END ==
LOC: M SMT 14:27
PROVIDERS: ATTEND Internal Medicine Nephrology
DX: J69.0 Pneumonitis due to inhalation of food and vomit (principal)

== ENCOUNTER 2017-07-15 09:04 | Emergency (ER) | payer MEDICARE, MEDICAID ==
[~2017-07-15] VITALS: Ht 172.7 cm; Wt 55.5 kg
[~2017-07-15 09:04] MED LIST changes: -ACET30TAB PO; -CIPR-250 PO; -MACR100C43 PO
[2017-07-15] MEDS ORDERED: ACETAMINOPH W/CODEINE #3 TAB UD PO ONE (10:00)
[2017-07-15] MEDS ORDERED: NITROFURANTOIN (MACROBID) 100 MG CAP PO ONE (11:30)
[2017-07-15] MEDS ORDERED: ACET30TAB PO ×2 (11:39→21:25)
[2017-07-15] MEDS ORDERED: MACR100C43 PO ×2 (11:40→21:25)
[2017-07-15 11:44] VITALS: BP 159/94
--- NOTE | 2017-07-15 12:26 | REP ---
Clinical: Lower back pain. Technique: AP, lateral, bilateral oblique and coned-down views of the lumbosacral spine. Findings: Age-related osteopenia and multilevel degenerative disc osteophyte complexes are appreciated including hypertrophic facet changes. There is no evidence for acute fracture / compression injury or subluxation. Alignment and lordosis maintained. Atherosclerotic disease to the visualized aorta and common iliac arteries noted. Impression: Moderate osteopenia and multilevel degenerative disc osteophyte complexes. No acute fracture / compression injury or subluxation. Signed by Adonis Aleman MD 07/15/2017 12:18 P
--- NOTE | 2017-07-15 12:27 | REP ---
Clinical: Lower back pain. Technique: Cephalic angled, caudal angled and lateral view of the sacrum/coccyx. Findings: Bilateral sacroiliac joints are symmetric and relatively normal for age. The sacrum and coccyx demonstrate age-related osteopenia and no obvious acute fracture or subluxation. Impression: Osteopenia and degenerative changes. No acute fracture or subluxation identified. Signed by Adonis Aleman MD 07/15/2017 12:19 P
== END 2017-07-15 11:47 | disposition home or self-care (01) ==
LOC: M ED 09:04
DX: N39.0 Urinary tract infection, site not specified (principal); I50.9 Heart failure, unspecified; I13.2 Hypertensive heart and chronic kidney disease with heart failure and with stage 5 chronic kidney disease, or end stage renal disease; N18.6 End stage renal disease; Z99.2 Dependence on renal dialysis; E78.00 Pure hypercholesterolemia, unspecified; E03.9 Hypothyroidism, unspecified; Z85.47 Personal history of malignant neoplasm of testis; Z96.0 Presence of urogenital implants; Z79.82 Long term (current) use of aspirin; Z79.899 Other long term (current) drug therapy; Z86.73 Personal history of transient ischemic attack (TIA), and cerebral infarction without residual deficits; Z87.891 Personal history of nicotine dependence; Z98.890 Other specified postprocedural states; Z86.79 Personal history of other diseases of the circulatory system

== ENCOUNTER 2017-07-15 18:45 | Inpatient (IN) | payer MEDICARE, MEDICAID ==
[~2017-07-15] VITALS: Ht 175.3 cm; Wt 57.5 kg
[~2017-07-15 18:45] MED LIST changes: +ACET30TAB PO; +MACR100C43 PO
--- NOTE | 2017-07-15 20:10 | REP ---
Clinical: Dyspnea . Comparison: 07/12/2017 . Findings: The mediastinum and cardiac silhouette are stable and within normal limits for portable technique. The lung jones are clear without acute consolidation, effusion, or pneumothorax. Skeletal structures are intact. Impression: No acute cardiopulmonary process appreciated. Signed by Adonis Aleman MD 07/15/2017 08:02 P
[2017-07-15 20:11] LABS: BASO % 0.2 % (0.0-1.0); EOS # 0.3 10^3/uL (0.0-0.50); IMMATURE GRANULOCYTE % 2.6 % (0-0); LYMPH # 1.1 10^3/uL (1.5-4.5); LYMPH % 7.2 % (24.0-44.0); MEAN CORPUSCULAR HEMOGLOBIN 32.8 pg (27.0-33.0); MEAN CORPUSCULAR VOLUME 99.1 fl (80.0-96.0); MONO # 1.5 10^3/uL (0.0-0.8); MONO % 10.1 % (0.0-5.0); NEUTROPHILS # 11.4 10^3/uL (1.8-7.7); NEUTROPHILS % 77.9 % (36.0-66.0); PLATELET COUNT, AUTOMATED 165 10^3/uL (150-450); WHITE BLOOD COUNT 14.7 10^3/uL (4.0-10.0)
[2017-07-15 20:13] LABS: ALBUMIN 2.9 GM/DL (3.2-5.2); ALBUMIN/GLOBULIN RATIO 0.76 (1.00-1.93); BILIRUBIN,DIRECT 0.4 MG/DL (0.0-0.2); BILIRUBIN,TOTAL 0.6 MG/DL (0.2-1.0); CALCIUM LEVEL 8.5 MG/DL (8.8-10.2); CREATININE FOR GFR 4.69 MG/DL (0.70-1.30); GLOMERULAR FILTRATION RATE 12.7 (>35); POTASSIUM SERUM 3.6 MEQ/L (3.5-5.1); TOTAL PROTEIN 6.7 GM/DL (6.4-8.2)
[2017-07-15] MEDS: LATANOPROST 0.005% OPHTH SOLN 2.5 ML OU SCH (21:00)
[2017-07-15] MEDS ORDERED: CEFTRIAXONE SOD 0.5 GM in APPROPRIATE DILUENT 1 EA IV ONE (21:15)
[2017-07-15] MEDS ORDERED: ACET30TAB PO (21:25)
[2017-07-15] MEDS ORDERED: MACR100C43 PO (21:25)
--- NOTE | 2017-07-15 22:31 | HPEPDOC ---
General Date of Admission 07/15/17 Other Providers PCP: Dr. Ferris Nephrology: Dr. Amaral Urology: Dr. Ramirez Pulmonary: Dr. Calvert Attending Physician: KAVIN GARZA MD Chief Complaint 86 yo M brought to ED via EMS, accompanied by daughter Lianne in room, for nausea, vomiting, and weakness that occurred during dialysis today. 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 Patient presented to the ED earlier today for back pain, and imaging was negative, but he was found to have a UTI, and sent home on Macrobid. Now, patient returns for n/v/weakness, and states this happened once before too during dialysis. Patient denies all ROS, including chest pain, palpitations, cough, shortness of breath, wheeze, lightheadedness, dizziness. In the ED, patient was given a dose of ceftriaxone. CXR was negative. Home Medications Scheduled (Combigan 0.2-0.5 %) 1 Bel Bel, 1 DROP OU BID, (Reported) (Icaps) 1 Cap Cap, 1 CAP PO DAILY, (Reported) (Mandie-Musa) 1 Tab Tab, 1 TAB PO QPM, (Reported) Aspirin (Aspirin EC) 81 Mg Tab, 81 MG PO DAILY, (Reported) Ciprofloxacin HCl (Cipro) 250 Mg Tab, 250 MG PO DAILY@0600 Folic Acid (Folic Acid) 1 Mg Tab, 1 MG PO DAILY, (Reported) Levothyroxine Sodium (Synthroid) 25 Mcg Tab, 25 MCG PO DAILY, (Reported) Megestrol Acetate (Megestrol Acetate) 400 Mg/10 Ml Ashley, 200 MG PO DAILY, ( Reported) Sevelamer Carbonate (Renvela) 800 Mg Tab, 1,600 MG PO WM, (Reported) Travoprost (Travatan Z) 50 Drop/2.5 Ml Soln, 1 DROP OU QHS, (Reported) Vitamin D (Drisdol) 50,000 Unit Cap, 50,000 UNIT PO Q2WK, (Reported) 1ST AND 14TH OF EVERY MONTH Scheduled PRN Acetaminophen (Tylenol Extra Strength) 500 Mg Tab, 1,000 MG PO Q6H PRN for PAIN, (Reported) Acetaminophen/Codeine (Tylenol/Codeine #3) Tab, 1 TAB PO Q8H PRN for PAIN, ( Reported) Loperamide HCl (Loperamide HCl) 2 Mg Tab, 2 MG PO PRN PRN for DIARRHEA, ( Reported) Allergies Coded Allergies: No Known Drug Allergy (Verified Allergy, Unknown, 11/26/12) Past Medical History Medical History COPD diastolic CHF ESRD, on dialysis urinary retention, indwelling Posadas history of CVA unsteady gait, hypothyroidism glaucoma Surgical History left hip repair AV fistula left forearm Social History Lives in [facility]. Ambulates with cane. Hard of hearing. Tobacco: quit 2009. Smoked .5 ppd fpr 40+ yrs Alcohol: hx of abuse, quit 2009 Review of Symptoms Constitutional: Denies: Chills, Fever, Night Sweats, Weight Loss, Lethargy Eyes: Denies: Pain, Vision change ENT: Denies: Head Aches, Ear Pain, Dysphagia Skin: Denies: Rash Pulmonary: Denies: Dyspnea, Cough Cardiovascular: Denies: Chest Pain, Palpitations, Edema, Lt Headedness Gastrointestinal: Reports: Diarrhea, Denies: Nausea, Vomiting, Abdominal Pain, Constipation, Melena, Hematochezia Genitourinary: Reports: Retention (chronic indwelling Posadas), Denies: Hematuria Musculoskeletal: Reports: Back Pain (chronic), Denies: Muscle Pain, Spasms Neurological: Reports: Confusion (resolved, was mild, occurred during Dialysis) , Denies: Weakness, Numbness, Incoordination, Change in speech Psych: Reports: Mood Normal Physical Examination General Exam: Positive: Alert, Cooperative, No Acute Distress Eye Exam: Positive: Conjunctiva & lids normal, EOMI, Other Eye Symptoms ( injected conjunctiva) ENT Exam: Positive: Atraumatic, Mucous membr. moist/pink, Tongue Midline, Nares Patent, Pinna Normal, Other ENT (poor dentition. hard of hearing) Neck Exam: Positive: Supple, +2 carotid pulse wo bruit, Negative: JVD, thyromegaly, Lymphadenopathy Chest Exam: Positive: Rales (b/l lower lobes, L > R) Heart Exam: Positive: Rate Normal, Regular Rhythm, Normal S1, Normal S2 Abdomen Exam: Positive: Normal bowel sounds, Soft, Negative: Tenderness Extremity Exam: Positive: Normal pulses, Negative: Cyanosis, Edema, Tenderness, Swelling Skin Exam: Positive: Nl turgor and temperature Neuro Exam: Positive: Normal Speech, Normal Tone, Sensation Intact Psych Exam: Positive: Mental status NL, Mood NL, Oriented x 3 Vital Signs Vital Signs Date Time Temp Pulse Resp B/P (MAP) Pulse Ox O2 Delivery O2 Flow Rate FiO2 07/15/17 20:37 07/15/17 18:55 98.2 128 20 97 Room Air Laboratory Data Labs 24H Laboratory Tests 2 07/15/17 19:29: Immature Granulocyte % (Auto) 2.6H, White Blood Count 14.7H, Red Blood Count 3.48L, Hemoglobin 11.4L, Hematocrit 34.5L, Mean Corpuscular Volume 99.1H, Mean Corpuscular Hemoglobin 32.8, Mean Corpuscular Hemoglobin Concent 33.0, Red Cell Distribution Width 16.0H, Platelet Count 165, Neutrophils (%) (Auto) 77.9H, Lymphocytes (%) (Auto) 7.2L, Monocytes (%) (Auto) 10.1H, Eosinophils (%) (Auto) 2.0, Basophils (%) (Auto) 0.2, Neutrophils # (Auto) 11.4H, Lymphocytes # (Auto) 1.1L, Monocytes # (Auto) 1.5H, Eosinophils # (Auto) 0.3, Basophils # (Auto) 0.0 , Immature Granulocyte # (Auto) 0.4H, Nucleated Red Blood Cells % (auto) 0.0, Anion Gap 9, Glomerular Filtration Rate 12.7L, Calcium Level 8.5L, Aspartate Amino Transf (AST/SGOT) 14, Alanine Aminotransferase (ALT/SGPT) 11L, Alkaline Phosphatase 156H, Total Bilirubin 0.6, Direct Bilirubin 0.4H, Total Protein 6.7 , Albumin 2.9L, Albumin/Globulin Ratio 0.76L, Amylase Level 119H, Lipase 325 07/15/17 20:19: Lactic Acid Level 1.7 CBC/BMP Laboratory Tests 07/15/17 19:29 Red Blood Count 3.48 L, Mean Corpuscular Volume 99.1 H, Mean Corpuscular Hemoglobin 32.8, Mean Corpuscular Hemoglobin Concent 33.0, Red Cell Distribution Width 16.0 H, Neutrophils (%) (Auto) 77.9 H, Lymphocytes (%) (Auto ) 7.2 L, Monocytes (%) (Auto) 10.1 H, Eosinophils (%) (Auto) 2.0, Basophils (%) (Auto) 0.2, Neutrophils # (Auto) 11.4 H, Lymphocytes # (Auto) 1.1 L, Monocytes # (Auto) 1.5 H, Eosinophils # (Auto) 0.3, Basophils # (Auto) 0.0 Microbiology Microbiology 07/15/17 Blood Culture, Received Pending Assessment/Plan Nausea, vomiting, weakness Patient experienced nausea, vomiting, and weakness during dialysis. Per patient , this is happened before during dialysis as well. Patient was slightly hypertensive and tachycardic in ED, and noted to have WBC 14.7, and was seen in ED earlier that day and sent home on Macrobid for UTI. There are no acute concerns on lab. Zofran Monitor electrolytes. No IV fluids needed at this time UTI Pt has chronic indwelling Posadas for urinary retention Patient presented to ED earlier today and had a positive UA and leukocytosis. Was sent home on Macrobid Hold Macrobid, start on renally-dosed Cipro Urine Cx from his 1st ED visit is pending Nutritional deficiency frail, almost underweight BMI Ensure with meals continue home Megace Back pain presented earlier today to ED for back pain, and X-ray of lumbar spine and sacrum/coccyx was negative continue home Tylenol ESRD on hemodialysis MWF continue home Renvela COPD Controlled, no exacerbation continue home Tylenol w/ codeine #3 Hx diastolic CHF No acute exacerbation. Continue home aspirin Diarrhea Continue home loperamide Chronic urinary retention continue indwelling Posadas Hypothyroidism Continue home Synthroid Glaucoma Continue home meds DVT ppx SCDs/TEDs DISPOSITION: will admit to hospital and transfer to Dr. Garza's service in am. Plan / VTE VTE Prophylaxis Ordered?: Yes (SARAH/SCD) GME ATTESTATION ATTENDING NOTE I have seen and examined the patient as did the resident I have reviewed the case and discussed the plan with Her. I concur with her findings on Hx and PE and agree with her assessment and plan with the following additions/exceptions: Patient with UTI on IV ABx and ESRD therefore a 2MN stay is expected. URIEL GRAVES DO Jul 15, 2017 22:28 BUSTER PA MD Jul 18, 2017 21:01
[2017-07-15] MEDS ORDERED: ACETAMINOPHEN 500 MG TAB PO PRN (22:45)
[2017-07-15] MEDS ORDERED: ACETAMINOPH W/CODEINE #3 TAB UD PO PRN (22:45)
[2017-07-15] MEDS ORDERED: LOPERAMIDE 2 MG CAP PO PRN (22:45)
[2017-07-15] MEDS ORDERED: ONDANSETRON 4 MG TAB (S0181) PO PRN (23:30)
[2017-07-15 23:50] VITALS: BP 181/81
[2017-07-16 04:45] VITALS: BP 156/67
[2017-07-16] MEDS: CIPROFLOXACIN 250 MG TAB PO SCH (05:36)
[2017-07-16] MEDS: LEVOTHYROXINE 25MCG TABLET (0.025MG) PO SCH (05:36)
[2017-07-16 06:16] LABS: MEAN CORPUSCULAR HEMOGLOBIN 32.9 pg (27.0-33.0); MEAN CORPUSCULAR HGB CONC 33.1 g/dl (32.0-36.5); MEAN CORPUSCULAR VOLUME 99.4 fl (80.0-96.0); PLATELET COUNT, AUTOMATED 153 10^3/uL (150-450); RED CELL DISTRIBUTION WIDTH 15.8 % (11.5-14.5); WHITE BLOOD COUNT 8.3 10^3/uL (4.0-10.0)
[2017-07-16 06:42] LABS: CALCIUM LEVEL 8.7 MG/DL (8.8-10.2); CREATININE FOR GFR 5.79 MG/DL (0.70-1.30); POTASSIUM SERUM 4.1 MEQ/L (3.5-5.1)
[2017-07-16 06:43] LABS: ALBUMIN 2.5 GM/DL (3.2-5.2); ALBUMIN/GLOBULIN RATIO 0.64 (1.00-1.93); BILIRUBIN,TOTAL 0.5 MG/DL (0.2-1.0); TOTAL PROTEIN 6.4 GM/DL (6.4-8.2)
[2017-07-16] MEDS: (RENVELA) SEVELAMER **CARBONate** 800 MG TAB PO SCH ×3 (08:30→18:06)
[2017-07-16] MEDS: MEGESTROL SUSP 400 MG/10 ML UDC PO SCH (08:30)
[2017-07-16] MEDS: ASPIRIN 81 MG ENTERIC TAB PO SCH (08:30)
[2017-07-16] MEDS: FOLIC ACID 1 MG TAB PO SCH (08:30)
[2017-07-16] MEDS ORDERED: NITROFURANTOIN (MACROBID) 100 MG CAP PO SCH (09:00)
--- NOTE | 2017-07-16 09:14 | IPNPDOC ---
Text Note Date of Service The patient was seen on 07/16/17. NOTE Subjective: Patient is an 86 year old male with a PMHx of COPD, Diastolic CHF, Hx of CVA, ESRD on HD (MWF), Chronic urinary retention w/ indwelling Posadas, and Glaucoma who presented to ED via EMS for nausea, vomiting and weakness during his HD session on 07/15. Patient was in the ER earlier that day and was found to have a UTI and sent home with Nitrofurantoin. Hospitalist team was called for admission. Patient was seen and examined at the bedside. Currently, he denies any symptoms from yesterday. He denies any chest pain, shortness of breath or palpitations. Denies any dysuria or frequency. He has a chronic Posadas catheter in place. Objective: Vitals (See below) General: Lying in bed, no acute distress, comfortable, AAOx3 HEENT: NC, AT CVS: RRR, +S1S2 Lungs: Fair air entry b/l, -w/r/r Abdomen: Soft, ND, NT Extremities: - Edema, - Calf tenderness, L upper extremity AV fistula Assessment and plan: Fatigue / Nausea / Vomiting - possibly 2/2 UTI - Risk factor of chronic indwelling Posadas catheter - Presented to the ER after/during dialysis with complaints of nausea, vomiting and fatigue - Was in the emergency room earlier that day and was found to have a urinary tract infection was sent home with nitrofurantoin - s/p ceftriaxone in the ER - Blood cultures and urine cultures 07/15: Remain pending - Urine analysis 07/15: Reveal evidence of urinary tract infection - c/w ciprofloxacin 250 BID COPD - No evidence of acute exacerbation at this time - c/w DuoNeb Diastolic CHF - Appears euvolemic at this time Hx of CVA ESRD on HD (MWF) - Received HD on Sunday 07/15 - Nephrology is not been consulted, will consider consultation on Tuesday if required to stay longer Chronic back pain - c/w Tylenol Chronic urinary retention - c/w indwelling Posadas Nutrition deficiency / Protein calorie malnutrition - c/w Ensure supplementation Hypothyroidism - c/w Levothyroxine Glaucoma - c/w home regimen DVT prophylaxis - c/w SCDs Disposition: - Start Physical therapy - Discharge anticipated for tomorrow if cleared by PT and leukocytosis remains resolved / remains afebrile VS,Michele, I+O VS, Fishbone, I+O Laboratory Tests 07/15/17 19:29 Red Blood Count 3.48 L, Mean Corpuscular Volume 99.1 H, Mean Corpuscular Hemoglobin 32.8, Mean Corpuscular Hemoglobin Concent 33.0, Red Cell Distribution Width 16.0 H, Neutrophils (%) (Auto) 77.9 H, Lymphocytes (%) (Auto ) 7.2 L, Monocytes (%) (Auto) 10.1 H, Eosinophils (%) (Auto) 2.0, Basophils (%) (Auto) 0.2, Neutrophils # (Auto) 11.4 H, Lymphocytes # (Auto) 1.1 L, Monocytes # (Auto) 1.5 H, Eosinophils # (Auto) 0.3, Basophils # (Auto) 0.0 07/16/17 05:42 Red Blood Count 3.28 L, Mean Corpuscular Volume 99.4 H, Mean Corpuscular Hemoglobin 32.9, Mean Corpuscular Hemoglobin Concent 33.1, Red Cell Distribution Width 15.8 H, Calcium Level 8.7 L, Aspartate Amino Transf (AST/SGOT ) 13, Alanine Aminotransferase (ALT/SGPT) 12, Alkaline Phosphatase 128 H, Total Bilirubin 0.5, Total Protein 6.4, Albumin 2.5 L Vital Signs Date Time Temp Pulse Resp B/P (MAP) Pulse Ox O2 Delivery O2 Flow Rate FiO2 07/16/17 04:45 99.1 99 16 156/67 (96) 97 Room Air I&O- Last 24 Hours up to 6 AM 07/17/17 06:00 Intake Total 360 ml Balance 360 ml KAVIN MONREAL MD Jul 16, 2017 09:14
[2017-07-16 14:00] VITALS: BP 143/61
[2017-07-16 22:00] VITALS: BP 140/72
[2017-07-17] MEDS: LATANOPROST 0.005% OPHTH SOLN 2.5 ML OU SCH ×2 (04:02→20:20)
[2017-07-17 06:00] VITALS: BP 148/70
[2017-07-17] MEDS: LEVOTHYROXINE 25MCG TABLET (0.025MG) PO SCH (06:13)
[2017-07-17] MEDS: CIPROFLOXACIN 250 MG TAB PO SCH (06:13)
[2017-07-17 06:16] LABS: MEAN CORPUSCULAR HEMOGLOBIN 32.5 pg (27.0-33.0); MEAN CORPUSCULAR HGB CONC 33.2 g/dl (32.0-36.5); MEAN CORPUSCULAR VOLUME 97.8 fl (80.0-96.0); PLATELET COUNT, AUTOMATED 166 10^3/uL (150-450); RED CELL DISTRIBUTION WIDTH 15.5 % (11.5-14.5); WHITE BLOOD COUNT 7.4 10^3/uL (4.0-10.0)
[2017-07-17 06:35] LABS: ALBUMIN 2.4 GM/DL (3.2-5.2); ALBUMIN/GLOBULIN RATIO 0.69 (1.00-1.93); BILIRUBIN,TOTAL 0.4 MG/DL (0.2-1.0); CALCIUM LEVEL 8.9 MG/DL (8.8-10.2); CREATININE FOR GFR 7.48 MG/DL (0.70-1.30); GLOMERULAR FILTRATION RATE 7.4 (>35); POTASSIUM SERUM 4.5 MEQ/L (3.5-5.1); TOTAL PROTEIN 5.9 GM/DL (6.4-8.2)
[2017-07-17] MEDS: FOLIC ACID 1 MG TAB PO SCH (08:59)
[2017-07-17] MEDS: ASPIRIN 81 MG ENTERIC TAB PO SCH (08:59)
[2017-07-17] MEDS: (RENVELA) SEVELAMER **CARBONate** 800 MG TAB PO SCH ×3 (08:59→18:00)
[2017-07-17] MEDS: MEGESTROL SUSP 400 MG/10 ML UDC PO SCH (08:59)
[2017-07-17] MEDS ORDERED: CIPR-250 PO (10:29)
--- NOTE | 2017-07-17 12:09 | IPNPDOC ---
Text Note Date of Service The patient was seen on 07/17/17. NOTE Subjective: Patient is an 86 year old male with a PMHx of COPD, Diastolic CHF, Hx of CVA, ESRD on HD (MWF), Chronic urinary retention w/ indwelling Posadas, and Glaucoma who presented to ED via EMS for nausea, vomiting and weakness during his HD session on 07/15. Patient was in the ER earlier that day and was found to have a UTI and sent home with Nitrofurantoin. Hospitalist team was called for admission. Patient was seen and examined at the bedside. She is clinically doing better. Denies any nausea, vomiting, abdominal pain or discomfort with urination. As been oriented to person, place and time. No confusion. Lungs were to discharge patient home today with follow-up as an outpatient. However, we were notified that the patient had positive blood cultures for gram-positive cocci in clusters. We will hold off discharge for repeat blood cultures. Objective: Vitals (See below) General: Lying in bed, no acute distress, comfortable, AAOx3 HEENT: NC, AT CVS: RRR, +S1S2 Lungs: Fair air entry b/l, -w/r/r Abdomen: Soft, ND, NT Extremities: - Edema, - Calf tenderness, L upper extremity AV fistula Assessment and plan: Fatigue / Nausea / Vomiting - possibly 2/2 UTI - Risk factor of chronic indwelling Posadas catheter - Noted to have some confusion, nausea and vomiting during dialysis and was sent here for evaluation. However, currently appears to have resolved completely - Presented to the ER 1124 and was subsequently sent out with nitrofurantoin - s/p ceftriaxone in the ER - Blood cultures 07/15: Gram-positive cocci in clusters; Urine cultures 07/15: Escherichia coli - Urine analysis 07/15: Reveal evidence of urinary tract infection - c/w ciprofloxacin 250 BID Positive blood cultures - Degree remains asymptomatic - Remains afebrile - Will repeat blood cultures 2 sets - We will hold off on vancomycin at this point COPD - No evidence of acute exacerbation at this time - c/w DuoNeb Diastolic CHF - Appears euvolemic at this time Hx of CVA ESRD on HD (MWF) - Received HD on Sunday 07/15 - Will consult nephrology. Case discussed with Dr. Amaral - Will require a longer hospitalization given positive blood cultures and need for repeat Chronic back pain - c/w Tylenol Chronic urinary retention - c/w indwelling Posadas Nutrition deficiency / Protein calorie malnutrition - c/w Ensure supplementation Hypothyroidism - c/w Levothyroxine Glaucoma - c/w home regimen DVT prophylaxis - c/w SCDs Disposition: -Repeat blood cultures pending VS,Michele, I+O VS, Michele, I+O Laboratory Tests 07/17/17 05:55 Red Blood Count 3.20 L, Mean Corpuscular Volume 97.8 H, Mean Corpuscular Hemoglobin 32.5, Mean Corpuscular Hemoglobin Concent 33.2, Red Cell Distribution Width 15.5 H, Calcium Level 8.9, Aspartate Amino Transf (AST/SGOT) 9, Alanine Aminotransferase (ALT/SGPT) 7 L, Alkaline Phosphatase 114, Total Bilirubin 0.4, Total Protein 5.9 L, Albumin 2.4 L Vital Signs Date Time Temp Pulse Resp B/P (MAP) Pulse Ox O2 Delivery O2 Flow Rate FiO2 07/17/17 06:00 97.8 86 16 148/70 (96) 97 Room Air I&O- Last 24 Hours up to 6 AM 07/18/17 06:00 Intake Total 360 ml Balance 360 ml KAVIN MONREAL MD Jul 17, 2017 12:09
[2017-07-17 14:00] VITALS: BP 140/60
--- NOTE | 2017-07-17 15:41 | CR ---
DATE OF CONSULTATION: 07/17/2017 REASON FOR CONSULTATION: Is to assist in the management of end-stage renal disease. HISTORY OF PRESENT ILLNESS Mr. Dubois is an 86-year-old gentleman with multiple chronic medical problems including a history of end-stage renal disease, urinary retention requiring chronic indwelling catheter, hypertension, hypothyroidism, chronic obstructive pulmonary disease (COPD) and diastolic congestive heart failure. He was admitted due to altered mentation couple of days ago. During hemodialysis on Tuesday, he was found to be quite confused and disoriented. The patient had some nausea and vomiting during dialysis due to which he was sent to the emergency room. Prior to this, he spent most of the day in the emergency room on Tuesday due to fall and not feeling well. In any event he was admitted on Tuesday due to altered mentation and was found to have urinary tract infection. He has been treated with antibiotics and his mentation has improved. The patient did complete his dialysis treatment on Tuesday prior to admission. Today he is found to have positive blood cultures and discharge plans have been cancelled. Nephrology consultation was requested as the patient is likely to require dialysis tomorrow. PAST MEDICAL AND SURGICAL HISTORY: Significant for: 1. History of hypertension. 2. End-stage renal disease requiring maintenance hemodialysis. 3. COPD. 4. Diastolic congestive heart failure. 5. Prior history of cerebrovascular accident (CVA). 6. History of urinary retention requiring Posadas catheter. 7. History of glaucoma. 8. History of unsteady gait requiring walker. Past surgical history is significant for left hip repair, left forearm arteriovenous (AV) fistula creation. MEDICATIONS: Home medications include: - Tylenol as needed - Combigan eye drops one drop both eyes twice a day - I-Caps one capsule daily - Mandie-Musa one tablet daily - aspirin 81 mg daily - folic acid 1 mg daily - levothyroxine 25 mcg daily - nitrofurantoin 100 mg twice a day - Renvela 800 mg three times a day with meals - vitamin D 50,000 units every two weeks - Travatan eye drops one drop in both eyes at bedtime ALLERGIES: The patient has no known drug allergies. PERSONAL AND SOCIAL HISTORY: The patient does not smoke or drink. He lives with his family. He quit smoking in 2009 and has history of 40+ years of smoking. FAMILY HISTORY: Family history is negative for kidney disease. REVIEW OF SYSTEMS: At the time of my visit today, the patient is awake and alert and in good spirits. He was expecting to go home today. He denies any headache, ears, nose or throat problems. He does have glaucoma and uses eye drops. He is hard of hearing. Cardiovascular system negative for dyspnea or chest pain. Respiratory system negative for hemoptysis or pleuritic type of chest pain. He does have some cough but has now improved. Gastrointestinal (GI) system is negative for nausea, vomiting or diarrhea. He did have nausea and vomiting on the day of admission which has improved now and he is tolerating his diet well. Genitourinary () system is significant for chronic indwelling Posadas catheter due to urinary retention. He denies any hematuria or flank pain. Musculoskeletal system is significant for unsteady gait, and generalized weakness, back pain and degenerative arthritis. Neurological system is significant for prior stroke and unsteady gait. There is no history of seizures. Endocrine system is significant for hypothyroidism and secondary hyperparathyroidism. There is no history of diabetes. Psychosocial system negative for depression or anxiety. Skin is negative for rash or ulcers. Hematology system is significant for anemia of chronic kidney disease. PHYSICAL EXAMINATION: Temperature 98 degrees Fahrenheit, heart rate 86 per minute and respiratory rate 20 per minute. Blood pressure 140/72 mmHg and oxygen saturation 99% on room air. Head is atraumatic. Pupils equal and reactive to light and sclerae are anicteric. Ears, nose and throat are unremarkable. Neck is supple and without jugular venous distention (JVD) or thyroid enlargement. There is no audible carotid bruit. Heart sounds are regular and lungs with few scattered rhonchi. There is no wheezing. Abdomen soft and nontender and without a palpable organomegaly. Bowel sounds are present. system is significant for presence of Posadas catheter which is draining clear urine. Musculoskeletal system is negative for leg edema. He has a left forearm AV fistula without any signs of infection. Skin is without any rash or ulcers. Neurologically he is awake, alert and oriented times three, at his baseline mentation. LABORATORY DATA: On admission, his WBC count was 14.7, hemoglobin 11.4 and hematocrit 34.5. Today WBC count is 7.4, hemoglobin 10.4 and hematocrit 31.3. Sodium is 135, potassium 4.5. BUN 37 and creatinine 7.48. Blood cultures preliminary report is positive for gram positive cocci in clusters. His urine culture from 07/15 is positive for Escherichia (E.) coli which was sensitive to every antibiotic. PROBLEMS: 1. End-stage renal disease. The patient is regularly dialyzed on Tuesday, Tuesday and Tuesday schedule. He was last dialyzed on Tuesday and we will evaluate him again tomorrow morning for need for dialysis. At present, he is stable with normal electrolytes and there is no emergent need for dialysis today. 2. Diastolic congestive heart failure. His volume status seems reasonably well compensated. No emergent need for dialysis today and we will reevaluate him tomorrow morning. 3. Altered mentation, most likely related to sepsis. The patient did have significant problem on the day of admission and has improved now as he is being treated with antibiotics. Urine culture was positive for E. coli and he has been treated with ceftriaxone. His urine is now clear. He remains high risk for recurrent urinary tract infections due to presence of indwelling Posadas catheter. 4. Bacteremia. No obvious source other than his AV fistula which looks without any infection at present. This is likely a contaminant or possibly related to his AV fistula cannulation. The patient has been treated with ceftriaxone and I suggest to continue with intravenous antibiotics until the repeat cultures are confirmed negative or positive. 5. Hypertension. Blood pressure is very well controlled and no changes are indicated at present. 6. Anemia. His anemia is chronic and stable and does not need any urgent intervention. He probably has already received treatment as an outpatient which is long acting and will monitor without any further intervention. 7. Hyponatremia, mild and related to end-stage renal disease. We will monitor his electrolytes. I thank you for involving me in the care of Mr. Dubois. I will follow him along with you. Dictation dictated by
[2017-07-17 22:00] VITALS: BP 143/67
[2017-07-18 06:00] VITALS: BP 180/75
[2017-07-18] MEDS: ASPIRIN 81 MG ENTERIC TAB PO SCH (06:13)
[2017-07-18] MEDS: LEVOTHYROXINE 25MCG TABLET (0.025MG) PO SCH (06:13)
[2017-07-18] MEDS: (RENVELA) SEVELAMER **CARBONate** 800 MG TAB PO SCH (06:13)
[2017-07-18] MEDS: MEGESTROL SUSP 400 MG/10 ML UDC PO SCH (06:13)
[2017-07-18] MEDS: FOLIC ACID 1 MG TAB PO SCH (06:13)
[2017-07-18] MEDS: CIPROFLOXACIN 250 MG TAB PO SCH (06:13)
[2017-07-18 06:50] LABS: MEAN CORPUSCULAR HEMOGLOBIN 33.2 pg (27.0-33.0); MEAN CORPUSCULAR VOLUME 97.8 fl (80.0-96.0); PLATELET COUNT, AUTOMATED 192 10^3/uL (150-450); RED CELL DISTRIBUTION WIDTH 15.3 % (11.5-14.5); WHITE BLOOD COUNT 8.8 10^3/uL (4.0-10.0)
[2017-07-18 07:10] LABS: ALBUMIN 2.5 GM/DL (3.2-5.2); ALBUMIN/GLOBULIN RATIO 0.66 (1.00-1.93); BILIRUBIN,TOTAL 0.4 MG/DL (0.2-1.0); CREATININE FOR GFR 8.91 MG/DL (0.70-1.30); GLOMERULAR FILTRATION RATE 6.1 (>35); POTASSIUM SERUM 4.9 MEQ/L (3.5-5.1); TOTAL PROTEIN 6.3 GM/DL (6.4-8.2)
--- NOTE | 2017-07-18 11:54 | IPN ---
DATE: 07/18/2017 Mr. Dubois is seen this morning on his bedside. He is feeling well and denies any fever, chills, nausea or vomiting. He has no dyspnea or chest pain. He wishes to go home. He was admitted with generalized weakness and altered mentation and found to have a urinary tract infection, for which he has been receiving antibiotic therapy. He also had one set of blood culture reported positive yesterday due to which his discharge was canceled and further blood cultures were drawn yesterday, which are still pending. In the meantime, the patient remains completely asymptomatic. PHYSICAL EXAMINATION Temperature 97.6 degrees Fahrenheit, heart rate 86 per minute and respiratory rate 18 per minute. Blood pressure 143/67 mmHg and oxygen saturation 97% on room air. His head is atraumatic. Neck is supple and without jugular venous distention (JVD) or thyroid enlargement. Pupils equal and reactive to light and sclera is anicteric. Heart sounds regular with systolic murmur grade 2/6. Lungs sound clear to auscultation. Abdomen is soft and nontender and extremities without any cyanosis or clubbing. Left forearm AV fistula is patent. Today's labs show WBC count 8.8, hemoglobin 10.4 and hematocrit 30.6. Sodium 135 and potassium 4.9. BUN 51 and creatinine 8.91. PROBLEMS: 1. End-stage renal disease. The patient is due for regular dialysis treatment today. I feel that the patient is doing well and he can be dialyzed as an outpatient. Due to complicated dialysis schedule here at the hospital, he may not be able to be dialyzed today. He is completely asymptomatic and blood cultures have not been reported back as yet. We hope that his blood cultures come back negative and he can continue with treatment of his urinary tract infection as an outpatient. 2. Bacteremia. The patient had one set of blood culture reported positive which was probably a contaminant. Repeat blood cultures are still pending. The patient is completely asymptomatic and afebrile. Depending upon his repeat blood culture results, we will plan further antibiotic therapy, either as the inpatient or as an outpatient. He can receive antibiotic in the outpatient dialysis clinic if needed. 3. Hypertension. Blood pressure has been generally well-controlled. This morning he has one high blood pressure reading. His morning blood pressure medications should be administered as routine and continue to monitor. The patient is due for dialysis later today and his blood pressure is likely to improve after dialysis and fluid removal. DISPOSITION From renal standpoint, the patient can be discharged and go to outpatient dialysis clinic for his dialysis treatment today. I will follow him there and I will also follow his blood cultures.
--- NOTE | 2017-07-18 19:28 | DSES ---
DATE OF ADMISSION: 07/15/2017 DATE OF DISCHARGE: 07/18/2017 ATTENDING PHYSICIAN: Dr. Kip Garza PRIMARY CARE PHYSICIAN: Ye Ferris REFERRING PHYSICIAN: None. CONSULTING PHYSICIAN: Dr. Amaral CONDITION ON DISCHARGE: Stable. FINAL DIAGNOSIS: Fatigue, nausea and vomiting, possible secondary to urinary tract infection. PROCEDURES: None. HISTORY OF PRESENT ILLNESS: Patient is an 86-year-old male with a past medical history of COPD, diastolic CHF, history of CVA, end stage renal disease on hemodialysis Tuesday, Tuesday and Tuesday, chronic urinary retention with indwelling Posadas catheter and glaucoma who presented to the emergency department via EMS for nausea and vomiting and weakness during his hemodialysis session on 07/15. Patient was in the emergency room earlier that day and was found to have a urinary tract infection and was sent home with nitrofurantoin. HOSPITAL COURSE: 1. Fatigue/nausea/vomiting, possibly secondary to urinary tract infection - possible indwelling Posadas catheter associated UTI. Noted to have some confusion, nausea and vomiting during dialysis session and was sent for further evaluation to the emergency room. Patient currently appears to have resolution of his symptoms. He presented to the ER on 07/15 and was subsequently sent out with nitrofurantoin status-post ceftriaxone in the emergency room. Blood cultures on 07/15 were positive for gram, positive for cocci and clusters. Urine cultures were positive for e-coli. Urinalysis was also consistent with urinary tract infection. Patient will continue with ciprofloxacin 250 mg by mouth twice a day. 2. Positive blood cultures, degree likely patient remains asymptomatic. He remains afebrile. Repeat blood cultures on 07/17/2017 have been negative after 24-hours. Will hold off on antibiotics. This is likely a contaminate. 3. COPD. No evidence of exacerbation at this time. Continue with DuoNebs. 4. Diastolic CHF. 5. History of CVA. 6. End-stage renal disease on hemodialysis, Tuesday, Tuesday and Tuesday. Received hemodialysis on Sunday 07/15. Nephrology was consulted with Dr. Amaral however patient will not receive dialysis as an inpatient and will be following up with dialysis on an outpatient. 7. Chronic back pain. Continue with Tylenol. 8. Chronic urinary retention. Continue with in swelling Posadas catheter. 9. Nutrition deficiency/protein calorie malnutrition. Continue with supplementation. 10. Hypothyroidism continue with levothyroxine. 11. Glaucoma. Continue with the home regimen. 12. DVT prophylaxis. Continue sequential compression devices. DISCHARGE MEDICATIONS: The patient will be discharged home on the following medication list: - ciprofloxacicin 250 mg by mouth daily to be taken as directed. - Tylenol 1,000 mg by mouth every 6 hours as needed for pain - Tylenol with Codeine 1 tab by mouth every 8 hours as needed for pain - Aspirin 81 mg by mouth daily - Combigan 1 drop in each eye twice a day - folic acid 1 mg daily - I-Caps one capsule daily - levothyroxine 25 mcg daily - loperamide 2 mg by mouth as needed for diarrhea - Megace acetate 200 mg by mouth daily - Mandie-Musa one tablet daily - travoprost 1 drop in each eye at bedtime - vitamin D 50,000 units by mouth every 2 weeks DISCHARGE INSTRUCTIONS: Patient has been advised to followup with Ye Ferris and Dr. Amaral within the next 7 days. He has been advised to remain complaint with treatment plan and medications and return to the emergency room if they experience any problems. TIME SPENT ON DISCHARGE: Greater than 25 minutes. MTDD
[2017-07-19] MEDS ORDERED: CIPR-250 PO (17:33)
== END 2017-07-18 12:11 | disposition home health service (06) | DRG 698 ==
LOC: EDBD 18:45 → M ED 18:45 → M ED INP 22:42 → M MSPAV 23:46
PROVIDERS: ADMIT Internal Medicine; ATTEND Internal Medicine
DX: T83.511A Infection and inflammatory reaction due to indwelling urethral catheter, initial encounter (principal); J69.0 Pneumonitis due to inhalation of food and vomit; N18.6 End stage renal disease; I13.2 Hypertensive heart and chronic kidney disease with heart failure and with stage 5 chronic kidney disease, or end stage renal disease; I50.32 Chronic diastolic (congestive) heart failure; E46 Unspecified protein-calorie malnutrition; N39.0 Urinary tract infection, site not specified; J44.9 Chronic obstructive pulmonary disease, unspecified; H40.9 Unspecified glaucoma; B96.20 Unspecified Escherichia coli [E. coli] as the cause of diseases classified elsewhere; E03.9 Hypothyroidism, unspecified; Z99.2 Dependence on renal dialysis; Z96.0 Presence of urogenital implants; Z79.82 Long term (current) use of aspirin; Z79.899 Other long term (current) drug therapy; Z86.73 Personal history of transient ischemic attack (TIA), and cerebral infarction without residual deficits; Z87.891 Personal history of nicotine dependence; Z95.828 Presence of other vascular implants and grafts; Y82.9 Unspecified medical devices associated with adverse incidents

== ENCOUNTER 2017-07-19 13:18 | Inpatient (IN) | payer MEDICARE, MEDICAID ==
[~2017-07-19] VITALS: Ht 172.7 cm; Wt 55.4 kg
[2017-07-19] MEDS: IPRATROPIUM 0.5MG/ALBUTEROL 2.5MG INH SOL UD 3ML (DUONEB)(J7620) NEB SCH (02:54)
[~2017-07-19 13:18] MED LIST changes: +CIPR-250 PO
[2017-07-19] MEDS ORDERED: LABETALOL HCL 100 MG/20 ML VIAL IV STA (14:18)
--- NOTE | 2017-07-19 15:03 | REP ---
Clinical: Altered mental status. Comparison: 02/15/2017. . Findings: Age-related atrophy, periventricular leukomalacia and microvascular ischemic changes are appreciated. The ventricles and sulci are symmetric. Chan-white differentiation is maintained. There is no evidence for acute intracranial hemorrhage, mass/mass effect, pathology or infarction. No extra-axial fluid collection. Calvarium is intact. Paranasal sinuses and mastoid air cells are clear. Impression: Age related atrophy and microvascular ischemic changes. No acute intracranial hemorrhage, infarction, or mass/mass effect. Signed by Adonis Aleman MD 07/19/2017 02:54 P
[2017-07-19 15:22] LABS: MICROSCOPIC INDICATED? MAN YES (NO)
[2017-07-19 15:34] LABS: RBC, URINE 0-1 /hpf (0-3)
[2017-07-19 15:35] LABS: BACTERIA, URINE SMALL AMOUNT; SQUAMOUS EPITHELIAL CELL URINE SMALL AMOUNT /hpf (SMALL AMT)
[2017-07-19 15:36] LABS: HYALINE CAST, URINE NONE SEEN /lpf (0-1); MICROSCOPIC EXAM PERFORMED
[2017-07-19 15:38] LABS: BASO % 0.2 % (0.0-1.0); EOS # 0.3 10^3/uL (0.0-0.50); EOS % 3.3 % (0.0-3.0); IMMATURE GRANULOCYTE % 1.7 % (0-0); LYMPH # 0.9 10^3/uL (1.5-4.5); LYMPH % 10.9 % (24.0-44.0); MEAN CORPUSCULAR HEMOGLOBIN 32.5 pg (27.0-33.0); MEAN CORPUSCULAR HGB CONC 32.1 g/dl (32.0-36.5); MEAN CORPUSCULAR VOLUME 101.5 fl (80.0-96.0); MONO % 11.4 % (0.0-5.0); NEUTROPHILS # 6.1 10^3/uL (1.8-7.7); NEUTROPHILS % 72.5 % (36.0-66.0); PLATELET COUNT, AUTOMATED 240 10^3/uL (150-450); RED CELL DISTRIBUTION WIDTH 15.8 % (11.5-14.5); WHITE BLOOD COUNT 8.4 10^3/uL (4.0-10.0)
[2017-07-19 16:00] LABS: ALBUMIN/GLOBULIN RATIO 0.86 (1.00-1.93); BILIRUBIN,DIRECT 0.2 MG/DL (0.0-0.2); BILIRUBIN,TOTAL 0.5 MG/DL (0.2-1.0); CALCIUM LEVEL 9.2 MG/DL (8.8-10.2); CREATININE FOR GFR 5.99 MG/DL (0.70-1.30); GLOMERULAR FILTRATION RATE 9.6 (>35); TOTAL PROTEIN 6.5 GM/DL (6.4-8.2)
[2017-07-19 16:07] LABS: POTASSIUM SERUM 5.6 MEQ/L (3.5-5.1)
[2017-07-19] MEDS ORDERED: METOPROLOL TART 25 MG TABLET PO ONE (16:45)
--- NOTE | 2017-07-19 17:28 | REP ---
Clinical: Altered mental status. Comparison: 07/15/2017. Findings: Mediastinum and cardiac silhouette are stable. Lung jones demonstrate diffuse chronic interstitial changes and fibrosis. No focal consolidation, effusion, or pneumothorax. Skeletal structures demonstrate osteopenia and degenerative changes. Impression: No acute cardiopulmonary process. Chronic changes noted. Signed by Adonis Aleman MD 07/19/2017 05:20 P
[2017-07-19] MEDS ORDERED: CIPR-250 PO (17:33)
[2017-07-19] MEDS ORDERED: ONDANSETRON 4MG/2ML VIAL (J2405) IV PRN (19:00)
[2017-07-19] MEDS ORDERED: ACETAMINOPHEN TAB 650MG DOSE (2X325MG) PO PRN (19:00)
[2017-07-19] MEDS ORDERED: IPRATROPIUM 0.5MG/ALBUTEROL 2.5MG INH SOL UD 3ML (DUONEB)(J7620) NEB PRN (20:00)
[2017-07-19] MEDS ORDERED: amLODIPine 5 MG TAB PO ONE (20:15)
--- NOTE | 2017-07-19 20:42 | HPEPDOC ---
General Date of Admission Jul 19, 2017 at 18:59 Attending Physician: JERRY CARRANZA MD Chief Complaint The patient is a 86-year-old male admitted with a reason for visit of Altered Mental Status. History of Present Illness 86-year-old male with past medical history of COPD, diastolic CHF, history of CVA, end stage renal disease on hemodialysis Tuesday, Tuesday and Tuesday, chronic urinary retention with indwelling Posadas catheter and glaucoma who was recently discharged on 07/18 following treatment of UTI was brought back to the ER this evening with a chief complaint of alteration in mental status. The patient's history was provided by the patient's daughter, who is at the bedside. She states that the patient has been having alteration in mental status since he was discharged from the hospital. She states that he does get this way sometimes when he has a urinary tract infection. She reports that the patient was continuing his by mouth antibiotic dose for urinary tract infection that he received upon discharge here. She denies noting any fevers, chills, chest pain, shortness of breath, abdominal pain, or any nausea/vomiting/ diarrhea. However, the patient's daughter states that she was concerned about the patient's persistent confusion. In the ER, a CT scan of the head revealed no acute findings. The patient will be admitted to the hospitalist service for further evaluation and management. Home Medications Scheduled (Combigan 0.2-0.5 %) 1 Bel Bel, 1 DROP OU BID, (Reported) (Icaps) 1 Cap Cap, 1 CAP PO DAILY, (Reported) (Mandie-Musa) 1 Tab Tab, 1 TAB PO QPM, (Reported) Aspirin (Aspirin EC) 81 Mg Tab, 81 MG PO DAILY, (Reported) Ciprofloxacin HCl (Cipro) 250 Mg Tab, 250 MG PO DAILY, (Reported) FILLED 07/17/17 FOR 5 DAYS Folic Acid (Folic Acid) 1 Mg Tab, 1 MG PO DAILY, (Reported) Levothyroxine Sodium (Synthroid) 25 Mcg Tab, 25 MCG PO DAILY, (Reported) Megestrol Acetate (Megestrol Acetate) 400 Mg/10 Ml Ashley, 200 MG PO DAILY, ( Reported) Sevelamer Carbonate (Renvela) 800 Mg Tab, 1,600 MG PO WM, (Reported) Travoprost (Travatan Z) 50 Drop/2.5 Ml Soln, 1 DROP OU QHS, (Reported) Vitamin D (Drisdol) 50,000 Unit Cap, 50,000 UNIT PO Q2WK, (Reported) 1ST AND 14TH OF EVERY MONTH Scheduled PRN Acetaminophen (Tylenol Extra Strength) 500 Mg Tab, 1,000 MG PO Q6H PRN for PAIN, (Reported) Acetaminophen/Codeine (Tylenol/Codeine #3) Tab, 1 TAB PO Q8H PRN for PAIN, ( Reported) Loperamide HCl (Loperamide HCl) 2 Mg Tab, 2 MG PO PRN PRN for DIARRHEA, ( Reported) Allergies Coded Allergies: No Known Drug Allergy (Verified Allergy, Unknown, 11/26/12) Past Medical History Medical History As noted in HPI. Social History Lives in [facility]. Ambulates with cane. Hard of hearing. Tobacco: quit 2009. Smoked .5 ppd fpr 40+ yrs Alcohol: hx of abuse, quit 2009 Review of Symptoms Other systems 10 point review of systems negative unless otherwise specified in HPI. Physical Examination General Exam: Positive: Alert, Cooperative, No Acute Distress ENT Exam: Positive: Atraumatic, Mucous membr. moist/pink Neck Exam: Negative: JVD Chest Exam: Positive: Clear to auscultation, Normal air movement Heart Exam: Positive: Rate Normal, Normal S1, Normal S2 Abdomen Exam: Positive: Soft, Negative: Tenderness Extremity Exam: Negative: Tenderness, Swelling Vital Signs Vital Signs Date Time Temp Pulse Resp B/P (MAP) Pulse Ox O2 Delivery O2 Flow Rate FiO2 07/19/17 19:10 07/19/17 19:03 84 20 95 07/19/17 13:45 98.1 Laboratory Data Labs 24H Laboratory Tests 2 07/19/17 14:50: Bedside Urine Color (LAB) YELLOW, Bedside Urine Appearance (LAB) HAZYH, Bedside Urine pH (LAB) 9.0, Bedside Urine Specific [place] (LAB 1.012, Bedside Urine Protein (LAB) 3+H, Bedside Urine Glucose (UA) 1+(100 MG/DL)H, Bedside Urine Ketones (LAB) 1+H, Bedside Urine Blood POSITIVEH, Bedside Urine Nitrite (LAB) NEGATIVE, Bedside Urine Bilirubin (LAB) NEGATIVE, Bedside Urine Urobilinogen ( LAB) NORMAL, Bedside Urine Leukocyte Esterase (L POSITIVEH, Urine WBC 10-15H, Urine RBC 0-1, Urine Squamous Epithelial Cells SMALL AMOUNT, Urine Bacteria SMALL AMOUNTH, Urine Hyaline Casts NONE SEEN, Urine Sediment Examination PERFORMED 07/19/17 15:10: Immature Granulocyte % (Auto) 1.7H, White Blood Count 8.4, Red Blood Count 3.38L , Hemoglobin 11.0L, Hematocrit 34.3L, Mean Corpuscular Volume 101.5H, Mean Corpuscular Hemoglobin 32.5, Mean Corpuscular Hemoglobin Concent 32.1, Red Cell Distribution Width 15.8H, Platelet Count 240, Neutrophils (%) (Auto) 72.5H, Lymphocytes (%) (Auto) 10.9L, Monocytes (%) (Auto) 11.4H, Eosinophils (%) (Auto ) 3.3H, Basophils (%) (Auto) 0.2, Neutrophils # (Auto) 6.1, Lymphocytes # (Auto ) 0.9L, Monocytes # (Auto) 1.0H, Eosinophils # (Auto) 0.3, Basophils # (Auto) 0.0, Immature Granulocyte # (Auto) 0.1H, Nucleated Red Blood Cells % (auto) 0.0 , Anion Gap 8, Glomerular Filtration Rate 9.6L, Calcium Level 9.2, Aspartate Amino Transf (AST/SGOT) 14, Alanine Aminotransferase (ALT/SGPT) 13, Alkaline Phosphatase 143H, Total Bilirubin 0.5, Direct Bilirubin 0.2, Ammonia < 10, Total Creatine Kinase 31L, Creatine Kinase MB 1.1, Creatine Kinase MB Relative Index 3.54, Troponin I 0.06, Total Protein 6.5, Albumin 3.0L, Albumin/Globulin Ratio 0.86L, Thyroid Stimulating Hormone (TSH) 2.520 CBC/BMP Laboratory Tests 07/19/17 15:10 Red Blood Count 3.38 L, Mean Corpuscular Volume 101.5 H, Mean Corpuscular Hemoglobin 32.5, Mean Corpuscular Hemoglobin Concent 32.1, Red Cell Distribution Width 15.8 H, Neutrophils (%) (Auto) 72.5 H, Lymphocytes (%) (Auto ) 10.9 L, Monocytes (%) (Auto) 11.4 H, Eosinophils (%) (Auto) 3.3 H, Basophils ( %) (Auto) 0.2, Neutrophils # (Auto) 6.1, Lymphocytes # (Auto) 0.9 L, Monocytes # (Auto) 1.0 H, Eosinophils # (Auto) 0.3, Basophils # (Auto) 0.0 Microbiology Microbiology 07/19/17 Blood Culture, Received Pending 07/19/17 Urine Culture, Received Pending Plan / VTE VTE Prophylaxis Ordered?: Yes Plan Plan Alteration in mental status 2/2 Underlying UTI vs Progression of possible Dementia CT Head with no acute findings Neurology contacted by the ER-->MRI of the Brain recommended Patient with no acute neurological deficits on exam Urine Culture noted from previous admission--will continue the patient on Rocephin for now Repeat UA, Urine Culture ordered here No other overt source of infection noted Ammonia level wnl, TSH wnl We will cont to monitor COPD, stable Albuterol prn ESRD on HD ([facility]) Nephrology on board for dialysis Hyperkalemia 2/2 Above Serum K noted to be 5.6--no EKG manifestations Dialysis scheduled for tomorrow Diastolic CHF, stable Volume status managed with Dialysis Hx of CVA Cont ASA MRI ordered Chronic back pain Cont Tylenol Chronic urinary retention Cont indwelling Posadas Nutrition deficiency / Protein calorie malnutrition Cont Ensure supplementation Hypothyroidism Cont Levothyroxine DVT prophylaxis Cont SCDs The patient will be admitted under the service of Dr. Carranza, who will begin to follow the patient on 07/20/17 at 7 AM. GERMANIA CHACON MD Jul 19, 2017 20:41
[2017-07-19 20:50] VITALS: BP 176/77
--- NOTE | 2017-07-19 21:12 | CR ---
DATE OF CONSULTATION: 07/19/2017 CONSULTATION REPORT FOR: Humble Carter MD REASON FOR CONSULTATION: To assist in the management of end-stage renal disease. HISTORY OF PRESENT ILLNESS: Mr. Dubois is an 86-year-old gentleman with known history of end-stage renal disease, COPD, hypertension and recurrent urinary tract infection. He has an indwelling Posadas catheter due to urinary retention and develops frequent UTIs. He was discharged from hospital just yesterday after 3 day stay for similar problem. At the time of discharge he was doing well and was at his baseline mentation. He was treated for urinary tract infection initially with intravenous ceftriaxone and later discharged on oral Cipro. The patient went to outpatient dialysis clinic from the hospital and developed confusion and altered mentation once again. He insisted to go home and was sent home yesterday. However, his daughter noticed that his speech had become more gibberish and she was unable to understand as to what the patient was saying. She brought him to the emergency room and he was found to be quite confused and somewhat disoriented. He tries to answer questions, however, his speech is not understandable. The patient reportedly did not have any further falls, fever or chills. He did complete almost all of his dialysis treatment and toward the end he pulled out one of his needles from the fistula due to which he was taken off the machine slightly prematurely. PAST MEDICAL AND SURGICAL HISTORY: Significant for: 1. History of hypertension. 2. End-stage renal disease. 3. History of COPD. 4. History of diastolic congestive heart failure. 5. Prior history of CVA. 6. History of urinary retention requiring Posadas catheter. 7. History of glaucoma. 8. History of unsteady gait, 8. Anemia of chronic kidney disease. Past surgical history is significant for left hip repair, left forearm AV fistula creation. MEDICATIONS: Home medications include: - Combigan eye drops one drop in both eyes twice a day - I-Caps one capsule daily - Mandie-Musa one tablet daily - aspirin 81 mg daily - folic acid 1 mg daily - levothyroxine 25 mcg daily - Cipro 250 mg daily which has been now stopped - Renvela 800 mg three times a day with meals - vitamin D 50,000 units every 2 weeks and - Travatan eye drops one drop in both eyes at bedtime ALLERGIES: The patient has no known drug allergies. PERSONAL AND SOCIAL HISTORY: The patient is a former smoker. He currently does not drink or use any drugs. He quit smoking in 2009. FAMILY HISTORY: Negative for end-stage renal disease. REVIEW OF SYSTEMS: The patient's daughter is present who is able to provide information. The patient himself is not able to answer questions appropriately. He was discharged from the hospital yesterday and sent to outpatient dialysis clinic. After dialysis, he was sent home and was found to be somewhat confused, however, this morning it became worse. He continues to repeat the same sentence, which is not understandable. There is no reported nausea, vomiting or diarrhea. There is no reported fever or chills. The patient himself is not able to answer any questions or provide any further information. Daughter reports no vomiting, no diarrhea and no complaints of abdominal pain or fall. PHYSICAL EXAMINATION: Temperature 98 degrees Fahrenheit, heart rate 76 per minute and respiratory rate 20 per minute. Blood pressure 180/110 mmHg and oxygen saturation 98% on room air. The patient is awake and without any acute distress. His head is atraumatic. Pupils are equal and reactive to light and sclerae is anicteric. Nose and throat are unremarkable. There is no oral thrush or ulcers. Neck is supple and without JVD or thyroid enlargement. Heart sounds are regular with systolic murmur grade 2/6. Lungs clear to auscultation. Abdomen soft and nontender and without a palpable organomegaly. Bowel sounds are normal. Extremities have no cyanosis or clubbing. Left forearm AV fistula is patent. Neurologically he is awake, able to talk, however, it is not understandable. He is moving all limbs equally. LABORATORY DATA: WBC count is 8.4, hemoglobin 11.0 and hematocrit 34.3. Sodium 139 and potassium 5.6. BUN 27 and creatinine 5.99. Ammonia level is less than 10, total bilirubin 0.5, AST 14, ALT 13 and alkaline phosphatase 143. Head CT scan is negative for any acute infarct or bleed. Chest x-ray without any acute cardiopulmonary process. PROBLEMS: 1. End-stage renal disease. The patient was dialyzed yesterday and as far as I know he completed most of his treatment. He did pull out his needle from the AV fistula towards the end of dialysis. We will schedule his next hemodialysis for tomorrow. 2. Hyperkalemia. This is somewhat unexpected as the patient received most of his dialysis treatment yesterday and his electrolytes were normal even prior to dialysis. We will plan to dialyze him tomorrow. We will recheck his electrolytes tomorrow morning. 3. Hypertension. His blood pressure is quite high and it is unusual. I will give him one dose of amlodipine 5 mg and monitor his blood pressure for next 6-8 hours. He has already received a dose of metoprolol 25 mg. 4. UTI. The patient is now on ceftriaxone 1 gram every 24 hours which is appropriate. 5. Altered mentation. Etiology remains uncertain. Cipro could be an underlying cause. He did receive Cipro in the hospital. We will have to watch him for next 24-[address] scan of head is negative for any acute infarct. He does not seem to have any symptoms suggestive of infection. I thank you for involving me in the care of Mr. Dubois. I will follow him along with you.
[2017-07-19] MEDS: **hydrALAZINE HCL** 25 MG TAB PO SCH (21:20)
[2017-07-19] MEDS: LATANOPROST 0.005% OPHTH SOLN 2.5 ML OU SCH (21:21)
[2017-07-19] MEDS: CEFTRIAXONE SOD 1 GM in APPROPRIATE DILUENT 1 EA IV SCH (21:21)
[2017-07-20 00:20] VITALS: BP 150/68
[2017-07-20] MEDS: IPRATROPIUM 0.5MG/ALBUTEROL 2.5MG INH SOL UD 3ML (DUONEB)(J7620) NEB SCH ×4 (02:00→21:42)
[2017-07-20 04:22] VITALS: BP 176/74
[2017-07-20] MEDS: LEVOTHYROXINE 25MCG TABLET (0.025MG) PO SCH (06:17)
[2017-07-20] MEDS: **hydrALAZINE HCL** 25 MG TAB PO SCH ×3 (06:18→22:00)
[2017-07-20 07:21] LABS: MEAN CORPUSCULAR HEMOGLOBIN 32.8 pg (27.0-33.0); MEAN CORPUSCULAR HGB CONC 32.7 g/dl (32.0-36.5); MEAN CORPUSCULAR VOLUME 100.3 fl (80.0-96.0); PLATELET COUNT, AUTOMATED 239 10^3/uL (150-450); RED CELL DISTRIBUTION WIDTH 15.5 % (11.5-14.5)
[2017-07-20 07:37] LABS: ALBUMIN 2.7 GM/DL (3.2-5.2); ALBUMIN/GLOBULIN RATIO 0.68 (1.00-1.93); BILIRUBIN,TOTAL 0.5 MG/DL (0.2-1.0); CALCIUM LEVEL 9.4 MG/DL (8.8-10.2); CREATININE FOR GFR 7.45 MG/DL (0.70-1.30); GLOMERULAR FILTRATION RATE 7.5 (>35); MAGNESIUM LEVEL 2.2 MG/DL (1.8-2.4); TOTAL PROTEIN 6.7 GM/DL (6.4-8.2)
[2017-07-20 07:40] LABS: POTASSIUM SERUM 5.3 MEQ/L (3.5-5.1)
[2017-07-20 08:00] VITALS: BP 169/72
--- NOTE | 2017-07-20 08:12 | ECGEPIP ---
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
[2017-07-20] MEDS: ASPIRIN 81 MG ENTERIC TAB PO SCH (09:19)
[2017-07-20] MEDS: FOLIC ACID 1 MG TAB PO SCH (09:19)
[2017-07-20] MEDS: (RENVELA) SEVELAMER **CARBONate** 800 MG TAB PO SCH ×3 (09:20→18:11)
[2017-07-20] MEDS: MEGESTROL SUSP 400 MG/10 ML UDC PO SCH (09:20)
[2017-07-20 12:00] VITALS: BP 144/67
[2017-07-20] MEDS ORDERED: HEPARIN 1,000 UNITS/ML 10ML VIAL (FOR RADIOLOGY& DIALYSIS ONLY) IV ONE (15:15)
[2017-07-20] MEDS ORDERED: LIDOCAINE 1% SDV 5 ML VIAL SQ ONE (15:15)
--- NOTE | 2017-07-20 16:51 | IPN ---
DATE: 07/20/2017 SUBJECTIVE: Today, the patient tells me that he is actually feeling quite well. He is awake, alert and oriented times three to person, place, and to situation. He does not remember the events of yesterday, but otherwise he has no complaints. OBJECTIVE: VITAL SIGNS: Temperature 97.9, pulse 90, respiratory rate 18, blood pressure 169/72, oxygen saturation 98% on room air. GENERAL: He is a frail, elderly, man laying flat in bed. He does not appear to be in any acute distress. HEENT: Pupils are equally round and reactive to light. He has moist mucous membranes, poor dentition. No elevation of central venous pressure (CVP). CARDIOVASCULAR: S1, S2, regular. RESPIRATORY: Fairly clear. ABDOMEN: Benign. EXTREMITIES: No clubbing, cyanosis, or edema. LABORATORY STUDIES: WBC 10.0, hemoglobin 9.7, platelet count 239. Chemistry panel: Sodium 137, potassium 5.3, chloride 95, bicarbonate 33, BUN 34, creatinine 7.4, ammonia less than 10. TSH within normal limits and alkaline phosphatase level of 131. MICROBIOLOGY: Urine culture is negative. Blood cultures are pending. IMAGING STUDIES: The patient had a CT scan of the head yesterday that revealed age-related atrophy and microvascular ischemic changes. No acute intracranial hemorrhage, infarct, mass or mass effect. He also had a chest x-ray that revealed no acute cardiopulmonary process. ASSESSMENT AND PLAN: This is an 86-year-old man who was recently discharged for metabolic encephalopathy related to urinary tract infection who presented once again with confusion. PROBLEMS: 1. Confusion, likely related to metabolic encephalopathy. I do not feel as though it is related to urinary tract infection as he has been on adequate treatment and his urine culture is negative at this time. I did speak with Dr. Amaral and we suspect that it may be related to ciprofloxacin use. With cessation of this medication and resumption of ceftriaxone, his symptoms do appear to have resolved. I had a lengthy conversation with the patient and the daughter at bedside. We will check an MRI to rule out any other etiologies. However, the rest of his blood work does appear to be fairly stable and he does appear to be doing quite well at this time. His episodes of confusion were related with dialysis. We will also provide him with inpatient dialysis here today and further evaluate his tolerance. We will have him work with physical therapy and occupational therapy prior to any disposition. 2. End-stage renal disease. Hemodialysis as per Dr. Amaral whose help is greatly appreciated. He does have some mild hypokalemia but no emergent need for hemodialysis. 3. Hypertension. He did receive an additional dose of amlodipine yesterday evening. He is continued on his metoprolol. 4. Hypothyroidism. He is continued on Synthroid. 5. Deep vein thrombosis (DVT) prophylaxis. The patient is on aspirin. We will encourage early ambulation.
[2017-07-20 18:00] VITALS: BP 110/55
--- NOTE | 2017-07-20 19:42 | IPN ---
DATE: 07/20/2017 Mr. Dubois was admitted yesterday due to altered mentation. He was quite confused and disoriented at that time. This morning he seems to be much better and is able to have a normal conversation. He is able to answer questions appropriately. The patient denies any dyspnea, chest pain, nausea or vomiting. He has no fever or chills. PHYSICAL EXAMINATION: Temperature 97.5 degrees Fahrenheit, heart rate 82 per minute and respiratory rate 18 per minute. Blood pressure 144/67 mmHg and oxygen saturation 98% on room air. His head is atraumatic. Neck is supple and without JVD or thyroid enlargement. Pupils equal and reactive to light and sclera is anicteric. Heart: Sounds are irregular in rhythm. Lungs with few basilar crackles. Abdomen: Soft and nontender. Bowel sounds are normal. Extremities have no cyanosis or clubbing. Skin has multiple areas of ecchymosis, scratch rodger rash on his upper extremities. Neurologically he has improved significantly compared with yesterday. He seems to be now awake, much more alert and oriented. He was able to answer questions appropriately and has no focal neurological deficit. Today's labs show WBC count 10.0, hemoglobin 9.7 and hematocrit 29.7. Sodium 137 and potassium 5.3. BUN 34 and creatinine 7.45. PROBLEMS: 1. Altered mentation I suspect that was toxic metabolic encephalopathy. The patient does not seem to have any neurological deficit. His daughter wants him to have an MRI. I will defer that to hospitalist service. CT scan did not show any acute infarct and his symptoms have already resolved. This was most likely related to use of ciprofloxacin. 2. End-stage renal disease. The patient is being dialyzed today. We will perform full dialysis treatment and remove about 1.5-2 liters of fluid as tolerated. 3. Hyperkalemia is slightly improved from yesterday. The patient will be dialyzed with 2.0 mEq potassium bath which will correct his hyperkalemia. 4. UTI. The patient is now back on Rocephin which is appropriate. I suggested not to use quinolones due to possible effect on his mentation. 5. Anemia slightly worse. At this point we will monitor without intervention and a repeat his CBC tomorrow.
[2017-07-20 20:00] VITALS: BP 127/60
[2017-07-20] MEDS: LATANOPROST 0.005% OPHTH SOLN 2.5 ML OU SCH (22:40)
[2017-07-20] MEDS: CEFTRIAXONE SOD 1 GM in APPROPRIATE DILUENT 1 EA IV SCH (22:40)
[2017-07-21] MEDS ORDERED: SLF 3 ML SYR IV PRN (00:15)
[2017-07-21] MEDS: IPRATROPIUM 0.5MG/ALBUTEROL 2.5MG INH SOL UD 3ML (DUONEB)(J7620) NEB SCH ×4 (02:00→21:06)
[2017-07-21 05:40] LABS: MEAN CORPUSCULAR HGB CONC 32.9 g/dl (32.0-36.5); MEAN CORPUSCULAR VOLUME 100.3 fl (80.0-96.0); PLATELET COUNT, AUTOMATED 224 10^3/uL (150-450); RED CELL DISTRIBUTION WIDTH 15.4 % (11.5-14.5); WHITE BLOOD COUNT 7.3 10^3/uL (4.0-10.0)
[2017-07-21] MEDS: **hydrALAZINE HCL** 25 MG TAB PO SCH (05:45)
[2017-07-21] MEDS: SLF 3 ML SYR IV SCH ×3 (05:45→21:34)
[2017-07-21] MEDS: LEVOTHYROXINE 25MCG TABLET (0.025MG) PO SCH (05:45)
[2017-07-21 06:09] LABS: ALBUMIN 2.7 GM/DL (3.2-5.2); ALBUMIN/GLOBULIN RATIO 0.69 (1.00-1.93); BILIRUBIN,TOTAL 0.4 MG/DL (0.2-1.0); CALCIUM LEVEL 8.8 MG/DL (8.8-10.2); CREATININE FOR GFR 4.32 MG/DL (0.70-1.30); POTASSIUM SERUM 3.7 MEQ/L (3.5-5.1); TOTAL PROTEIN 6.6 GM/DL (6.4-8.2)
[2017-07-21 07:45] VITALS: BP 144/62
[2017-07-21 08:33] VITALS: BP 129/60
[2017-07-21] MEDS: MEGESTROL SUSP 400 MG/10 ML UDC PO SCH (09:42)
[2017-07-21] MEDS: FOLIC ACID 1 MG TAB PO SCH (09:43)
[2017-07-21] MEDS: ASPIRIN 81 MG ENTERIC TAB PO SCH (09:43)
[2017-07-21] MEDS: (RENVELA) SEVELAMER **CARBONate** 800 MG TAB PO SCH ×3 (09:46→18:29)
[2017-07-21 12:17] VITALS: BP 133/63
--- NOTE | 2017-07-21 13:28 | IPN ---
DATE OF EXAMINATION: 07/21/2017 SUBJECTIVE: The patient tells me that he feels well. He is a little bit irritated with staff overnight and was told that the ladies taking care of him were very bossy and that he did not want to work and cooperate with their requests. He is awake, alert, and oriented times three. He otherwise has no complaints and is feeling quite well. OBJECTIVE: VITAL SIGNS: Temperature 97.7, pulse 75, respiratory rate 16, blood pressure 133/63, oxygen saturation 99% on room air. GENERAL: He is a frail, elderly, man sitting on the edge of his bed, eating breakfast. He does not appear to be in any acute distress. HEENT: Cranial nerves II-XII are grossly intact. He has moist mucous membranes, poor dentition. No appreciable elevation of central venous pressure. CARDIOVASCULAR EXAMINATION: S1, S2, regular. RESPIRATORY EXAMINATION: Is clear. ABDOMINAL EXAMINATION: Is benign. EXTREMITIES: No clubbing, cyanosis, or edema. He spontaneously moves all four extremities. NEUROLOGICAL EXAMINATION: Is intact. LABORATORY STUDIES: WBC 7.3, hemoglobin 10.2, platelet count 224. Chemistry panel: Sodium 140, potassium 3.7, chloride 102, bicarbonate 30, BUN 17, creatinine 4.3. MICROBIOLOGY: His urine culture is negative. His blood culture is negative. No new imaging. ASSESSMENT AND PLAN: This is an 86-year-old man who was recently discharged for metabolic encephalopathy related to urinary tract infection who presents once again with metabolic encephalopathy. PROBLEMS: 1. Metabolic encephalopathy. We feel it is likely related to ciprofloxacin. Since being readmitted, he appears to have been oriented, but there was some concern from the nursing staff that he was confused last night. However, he tells me that he remembers the incidents quite clearly, and he was actually noncooperative intentionally. He is able to tell me the month, the year, the date, where he is, why he is here, and the president's name. An MRI has been ordered, and I did have a lengthy discussion with him and explaining to him where the MRI is, how the procedure would be performed, and at this time he completely outright refused to have it done. I did encourage him to work with physical therapy and occupational therapy to help in dispositioning him. 2. End-stage renal disease. Hemodialysis as per Dr. Amaral whose help is greatly appreciated. He does have some mild hypokalemia but no emergent need for hemodialysis. 3. Hypertension. He did receive an additional dose of amlodipine yesterday evening. He is continued on his metoprolol. 4. Hypothyroidism. He is continued on Synthroid. 5. Deep vein thrombosis (DVT) prophylaxis. The patient is on aspirin. We will encourage early ambulation.
[2017-07-21 16:15] VITALS: BP 140/61
--- NOTE | 2017-07-21 16:23 | REP ---
MRA BRAIN WITHOUT CONTRAST: HISTORY: Altered mental status. COMPARISON: 01/01/2017 There is no aneurysm or arteriovenous malformation. Mild atherosclerotic disease involves the cavernous internal carotid arteries and left posterior cerebral artery. Mild to moderate atherosclerotic disease involves the middle cerebral artery trifurcations. There is loss of the normal hyperintense signal in the distal vertebral artery from the C1 level to the foramen magnum. The distal left vertebral artery is patent. This is due to moderate or severe stenosis. There is origin of the right posterior cerebral artery. Major intracranial vessels are patent. The left vertebral artery is dominant. IMPRESSION: 1. There is no aneurysm or arteriovenous malformation. 2. Atherosclerotic disease as described above. Unreviewed
--- NOTE | 2017-07-21 16:30 | REP ---
MR BRAIN WITHOUT CONTRAST: HISTORY: Altered mental status. COMPARISON: 01/01/2017 A small area of increased signal intensity on T2-weighted images is present in the right cerebellum. This represents an old lacunar infarction. Areas of increased signal intensity on T2-weighted images are present in the periventricular and subcortical white matter. This represents small vessel ischemic disease. There is no intraparenchymal hemorrhage, acute infarct, mass or midline shift. The ventricular system and cortical sulci as well as subarachnoid space in the posterior fossa are dilated consistent with moderate volume loss. There is no extracerebral collection. The visualized sinuses are clear. IMPRESSION: 1. 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 2. Small vessel ischemic disease. 3. Moderate volume loss. Signed by Timur Jurado MD 07/21/2017 04:34 P
--- NOTE | 2017-07-21 17:55 | IPN ---
DATE: 07/21/2017 Mr. Dubois is a seen this morning on his bedside. He is lying in the bed without any distress. He is feeling well and denies any dyspnea, chest pain, nausea or vomiting. He reports eating good breakfast. PHYSICAL EXAMINATION: Temperature 97.8 degrees Fahrenheit, heart rate has been between 75 and 116 per minute and respiratory rate 16 per minute. Blood pressure 129/60 mmHg and oxygen saturation 97% on room air. His head is atraumatic. Neck is supple and without JVD or thyroid enlargement. Pupils are equal and reactive to light and sclera is anicteric. His heart sounds are somewhat tachycardiac and irregular. Lungs: Sound clear to auscultation. Abdomen: Soft and nontender. Bowel sounds are normal. There is no palpable organomegaly. Extremities: Have no cyanosis or clubbing. Left forearm AV fistula is patent. Today's labs show WBC count 7.3, hemoglobin 10.2 and hematocrit 31.0. Platelets 224. Sodium 140 and potassium 3.7. BUN 17 and creatinine 4.32. PROBLEMS: 1. End-stage renal disease. The patient was dialyzed yesterday and will be scheduled for next dialysis tomorrow. His electrolytes are within normal range and volume status is well-compensated. 2. Hyperkalemia. Hyperkalemia has corrected with hemodialysis. No intervention is indicated at this point. Electrolytes will be checked again tomorrow morning. 3. Hypertension. Blood pressure is reasonable. However, he does get episodic tachycardia. He is being monitored on telemetry for possibility of paroxysmal atrial fibrillation. At present, he is not on any anticoagulation other than subcu heparin 5000 units twice a day for deep venous thrombosis (DVT) prophylaxis. He has not been on any beta karissa. 4. Altered mentation. His mentation seems to be improved back to baseline. He had an MRI and MRA which did not show any significant new problem. 5. Anemia. His anemia has been stable and we will continue to monitor and treat with Aranesp during dialysis as indicated. 6. Urinary tract infection (UTI). The patient has been treated with ceftriaxone. He seems asymptomatic. 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
[2017-07-21 20:00] VITALS: BP 94/55
[2017-07-21] MEDS: LATANOPROST 0.005% OPHTH SOLN 2.5 ML OU SCH (21:33)
[2017-07-21] MEDS: HEPARIN SOD (PORCINE) 5000 UNITS/ML VIAL SQ SCH (21:33)
[2017-07-22] VITALS (8 sets, daily range): BP systolic 103–137; BP diastolic 50–85
[2017-07-22] MEDS: IPRATROPIUM 0.5MG/ALBUTEROL 2.5MG INH SOL UD 3ML (DUONEB)(J7620) NEB SCH ×3 (02:00→20:23)
[2017-07-22 05:49] LABS: MEAN CORPUSCULAR HEMOGLOBIN 33.1 pg (27.0-33.0); MEAN CORPUSCULAR VOLUME 100.3 fl (80.0-96.0); PLATELET COUNT, AUTOMATED 251 10^3/uL (150-450); RED CELL DISTRIBUTION WIDTH 15.4 % (11.5-14.5); WHITE BLOOD COUNT 8.5 10^3/uL (4.0-10.0)
[2017-07-22] MEDS: SLF 3 ML SYR IV SCH ×3 (06:00→22:00)
[2017-07-22 06:09] LABS: ALBUMIN 2.8 GM/DL (3.2-5.2); ALBUMIN/GLOBULIN RATIO 0.68 (1.00-1.93); BILIRUBIN,TOTAL 0.4 MG/DL (0.2-1.0); CALCIUM LEVEL 9.2 MG/DL (8.8-10.2); CREATININE FOR GFR 6.71 MG/DL (0.70-1.30); GLOMERULAR FILTRATION RATE 8.4 (>35); MAGNESIUM LEVEL 2.2 MG/DL (1.8-2.4); POTASSIUM SERUM 3.8 MEQ/L (3.5-5.1); TOTAL PROTEIN 6.9 GM/DL (6.4-8.2)
[2017-07-22] MEDS: (RENVELA) SEVELAMER **CARBONate** 800 MG TAB PO SCH ×3 (06:47→16:59)
[2017-07-22] MEDS: LEVOTHYROXINE 25MCG TABLET (0.025MG) PO SCH (06:47)
[2017-07-22] MEDS: FOLIC ACID 1 MG TAB PO SCH (06:48)
[2017-07-22] MEDS: ASPIRIN 81 MG ENTERIC TAB PO SCH (06:48)
[2017-07-22] MEDS: MEGESTROL SUSP 400 MG/10 ML UDC PO SCH (06:49)
[2017-07-22] MEDS: HEPARIN SOD (PORCINE) 5000 UNITS/ML VIAL SQ SCH ×2 (07:51→22:11)
[2017-07-22] MEDS ORDERED: LIDOCAINE 1% SDV 5 ML VIAL SQ ONE (13:00)
[2017-07-22] MEDS ORDERED: HEPARIN 1,000 UNITS/ML 10ML VIAL (FOR RADIOLOGY& DIALYSIS ONLY) IV ONE (13:00)
[2017-07-22] MEDS ORDERED: NS 250 ML IV ONE (17:30)
[2017-07-22] MEDS ORDERED: CARVedilol 3.125 MG TAB PO ONE (21:00)
--- NOTE | 2017-07-22 21:51 | IPN ---
DATE: 07/22/2017 SUBJECTIVE: Mr. Dubois is seen on his bedside morning. He is feeling well and denies any complaints. His altered mentation has improved and he is back to his baseline. He denies any headache, dyspnea, chest pain, nausea or vomiting. He reports eating good breakfast this morning. PHYSICAL EXAMINATION: Temperature 97.6 degrees Fahrenheit, heart rate 120 per minute and respiratory rate 20 per minute. Blood pressure 135/62 mmHg and oxygen saturation 100% on room air. His head is atraumatic. Pupils equal and reactive to light and sclerae are anicteric. Ears, nose and throat are unremarkable. Heart sounds are tachycardiac and lungs sound clear to auscultation. Abdomen soft and nontender and without a palpable organomegaly. Bowel sounds are normal. Extremities have no cyanosis or clubbing. Left forearm arteriovenous (AV) fistula is patent. Neurologically he is awake, alert and at his baseline mentation. LABORATORY DATA: Today's labs show WBC count 8.5, hemoglobin 9.9 and hematocrit 30. Platelets 251. Sodium 139 and potassium 3.8. BUN 32 and creatinine 6.71. MICROBIOLOGY: Blood cultures are negative so far. PROBLEMS: 1. End-stage renal disease. The patient is due for dialysis today and will be dialyzed this afternoon. His dialysis orders are being written. We will try to remove about 1.5 liters of fluid as tolerated. 2. Altered mentation. Most likely initially it was related to urinary tract infection (UTI) and then related to Cipro. His toxic encephalopathy has already resolved and he is back to baseline. 3. Anemia. His anemia is mild and stable. No intervention is indicated at this point. 4. Hypertension. Blood pressure is generally well controlled. However, he does remain tachycardiac. We will consider starting him on low-dose beta karissa. However, he also has history of hypotension during dialysis which complicates his situation. DISPOSITION: If the patient remains stable, he can probably be discharged to home over the weekend. Physical therapy has to evaluate him and clear him.
[2017-07-22] MEDS: LATANOPROST 0.005% OPHTH SOLN 2.5 ML OU SCH (22:11)
[2017-07-23] MEDS: IPRATROPIUM 0.5MG/ALBUTEROL 2.5MG INH SOL UD 3ML (DUONEB)(J7620) NEB SCH ×2 (02:00→07:03)
[2017-07-23 04:00] VITALS: BP 133/59
[2017-07-23 05:27] LABS: MEAN CORPUSCULAR HEMOGLOBIN 33.1 pg (27.0-33.0); MEAN CORPUSCULAR HGB CONC 32.4 g/dl (32.0-36.5); MEAN CORPUSCULAR VOLUME 102.2 fl (80.0-96.0); PLATELET COUNT, AUTOMATED 204 10^3/uL (150-450); RED CELL DISTRIBUTION WIDTH 15.7 % (11.5-14.5); WHITE BLOOD COUNT 7.2 10^3/uL (4.0-10.0)
[2017-07-23] MEDS: LEVOTHYROXINE 25MCG TABLET (0.025MG) PO SCH (05:50)
[2017-07-23] MEDS: SLF 3 ML SYR IV SCH ×3 (05:51→20:50)
[2017-07-23 05:57] LABS: ALBUMIN 2.5 GM/DL (3.2-5.2); ALBUMIN/GLOBULIN RATIO 0.66 (1.00-1.93); BILIRUBIN,TOTAL 0.3 MG/DL (0.2-1.0); CALCIUM LEVEL 9.2 MG/DL (8.8-10.2); CREATININE FOR GFR 4.15 MG/DL (0.70-1.30); GLOMERULAR FILTRATION RATE 14.7 (>35); MAGNESIUM LEVEL 2.1 MG/DL (1.8-2.4); POTASSIUM SERUM 4.1 MEQ/L (3.5-5.1); TOTAL PROTEIN 6.3 GM/DL (6.4-8.2)
[2017-07-23 07:25] VITALS: BP 135/73
--- NOTE | 2017-07-23 07:33 | ECGEPIP ---
Stationary ECG Study [facility] Test Date: 2017-07-22 Pat Name: MELI COFFMAN Department: Room: [place] [address] Gender: M Planning Division Superintendent: ANGELA : 1930 Requested By: JERRY CARRANZA Order Number: [id number] Reading MD: Tami Guzmán Measurements Intervals [place] Rate: 129 P: 74 NM: 181 QRS: 3 QRSD: 84 T: 104 QT: 301 QTc: 441 Interpretive Statements SINUS TACHYCARDIA WITH OCCASIONAL VENTRICULAR PREMATURE COMPLEXES 1ST DEGREE BLOCK POSSIBLE ANTERIOR MYOCARDIAL INFARCTION, OF INDETERMINATE AGE INFERIOR QS MORE APPARENT STTABN NEW MILD EARLY REPLAR CHANGES APPARENT RATE FASTER AND ECTOPY ALSO NEW C/W 07/19/17 Electronically Signed On 07-23-2017 7:33:27 EST by Tami Guzmán
[2017-07-23] MEDS: ASPIRIN 81 MG ENTERIC TAB PO SCH (08:41)
[2017-07-23] MEDS: (RENVELA) SEVELAMER **CARBONate** 800 MG TAB PO SCH ×3 (08:41→17:11)
[2017-07-23] MEDS: MEGESTROL SUSP 400 MG/10 ML UDC PO SCH (08:41)
[2017-07-23] MEDS: HEPARIN SOD (PORCINE) 5000 UNITS/ML VIAL SQ SCH ×2 (08:41→20:50)
[2017-07-23] MEDS: FOLIC ACID 1 MG TAB PO SCH (08:41)
[2017-07-23] MEDS: CARVedilol 3.125 MG TAB PO SCH ×2 (08:42→20:50)
[2017-07-23 12:00] VITALS: BP 128/68
--- NOTE | 2017-07-23 12:37 | IPN ---
DATE: 07/23/2017 SUBJECTIVE: The patient tells me that he is feeling well and would like to go home. He denies any specific complaints. He denies palpitations, lightheadedness, dizziness, chest pain, shortness of breath, fevers, chills, nausea, vomiting or diarrhea. OBJECTIVE: VITAL SIGNS: Temperature 97.7, pulse 110, respiratory rate 20, blood pressure 135/73, oxygen saturation 100% on room air. GENERAL: He is a frail, elderly man lying in bed. He does not appear to be in acute distress. He is hard of hearing. HEENT: Poor dentition. Moist mucous membranes. No elevation of central venous pressure (CVP). CARDIOVASCULAR EXAM: S1, S2. No distant heart sounds appreciated. He does appear to be mildly tachycardic at the time of my exam. RESPIRATORY EXAM: Clear. ABDOMINAL EXAM: Benign. EXTREMITIES: No clubbing, cyanosis, or edema. He appears wasted. LABORATORY STUDIES: WBC 7.2, hemoglobin 9.1, platelet count 204. Chemistry panel: Sodium 140, potassium 4.1, chloride 103, bicarbonate 30, BUN 16, creatinine 4.1. Microbiology is all thus far negative. No new imaging. ASSESSMENT AND PLAN: This is an 86-year-old man who was recently discharged, metabolic encephalopathy related to a urinary tract infection, who presented once again with metabolic encephalopathy. Problems: 1. Metabolic encephalopathy, resolved. The patient has been at his baseline cognitive status for several days. Repeat cultures have been negative, and as such, all antibiotics have been discontinued. He is doing quite well. An MRI was completed, which did not reveal any new information. 2. End-stage renal disease, on hemodialysis. Nephrology's help is greatly appreciated. He is continued on Renvela, Megace. 3. Hypertension. He has been started on carvedilol 3.125 mg twice a day. He may require further titration with this. 4. Hypothyroidism. He was on Synthroid. 5. Sinus tachycardia. The etiology was somewhat unclear. I did provide him with a small 250 mL normal saline fluid challenge post dialysis to see if this did help. It did not. I do have concern it may be an adverse reaction to the DuoNeb, which he is receiving standing. At this time, I will discontinue these and leave them as as needed. He has also been started on Coreg. Will continue to monitor him on telemetry for an additional 24 hours. 6. Deep vein thrombosis (DVT) prophylaxis. He is on heparin. DISPOSITION: Pending clearance from physical therapy (PT). I will encourage the nurses to ambulate the patient.
[2017-07-23 16:00] VITALS: BP 140/60
[2017-07-23 20:00] VITALS: BP 132/60
[2017-07-23] MEDS: LATANOPROST 0.005% OPHTH SOLN 2.5 ML OU SCH (20:50)
--- NOTE | 2017-07-23 21:19 | IPN ---
DATE: 07/23/2017 The patient is seen this morning at bedside. He denies any complaints. He states that he would like to be discharged home. He tolerated dialysis well yesterday without any acute issues. His tachycardia has somewhat improved with Coreg. VITAL SIGNS: Temperature 97.7, pulse 110, respiratory rate 20, blood pressure 135/73, saturating 100% on room air. Intake and output: Dialysis yesterday removed 1000 mL. Weight on the bed scale today is 55.5 kg. GENERAL: The patient is seen in bed. He has a frail, slight body habitus and appears stated age. He is not in any acute distress. HEAD/NECK/EARS/NOSE/THROAT: Unremarkable. Mucous membranes are moist. There is no jugular venous distention (JVD). CARDIOVASCULAR: S1, S2. Mildly tachycardic. Radial pulse 2+. RESPIRATORY: Clear lungs. ABDOMEN: Soft, nontender. Positive bowel sounds. EXTREMITIES: Decreased muscle mass. No edema. There is a left upper extremity fistula with thrill and bruit. GENITOURINARY: He has a Posadas catheter with urine. NEUROLOGIC: He is at his baseline mentation. PSYCHIATRIC: Appropriate mood and affect. LABORATORY DATA: White count 7.2, hemoglobin 9.1, platelets 204. Sodium 140, potassium 4.1, bicarbonate 30, calcium 9.2, magnesium 2.1, AST and ALT normal. INPATIENT MEDICATIONS: His DuoNeb was discontinued. He continues on Coreg 3.125 mg by mouth twice a day. His remainder of medications are unchanged from prior. PROBLEMS: 1. End stage renal disease on hemodialysis. The patient continues on his maintenance hemodialysis schedule. Next treatment will be 07/25/2017. He is euvolemic. 2. Metabolic encephalopathy. The patient is at his baseline mentation without issue. 3. Sinus tachycardia. The patient was started on Coreg 3.125 mg twice a day for heart rate control. He has tolerated it well. His DuoNeb have also been discontinued as they may be contributing to his sinus tachycardia. TSH was checked, which came back appropriate. DISPOSITION: The patient is pending clearance from physical therapy (PT).
[2017-07-24] VITALS: BP 133/63
[2017-07-24 04:00] VITALS: BP 170/75
[2017-07-24 05:07] LABS: MEAN CORPUSCULAR HEMOGLOBIN 33.1 pg (27.0-33.0); MEAN CORPUSCULAR HGB CONC 31.9 g/dl (32.0-36.5); MEAN CORPUSCULAR VOLUME 103.8 fl (80.0-96.0); PLATELET COUNT, AUTOMATED 215 10^3/uL (150-450); RED CELL DISTRIBUTION WIDTH 15.5 % (11.5-14.5); WHITE BLOOD COUNT 7.2 10^3/uL (4.0-10.0)
[2017-07-24 05:34] LABS: ALBUMIN 2.7 GM/DL (3.2-5.2); ALBUMIN/GLOBULIN RATIO 0.73 (1.00-1.93); BILIRUBIN,TOTAL 0.4 MG/DL (0.2-1.0); CALCIUM LEVEL 9.2 MG/DL (8.8-10.2); CREATININE FOR GFR 6.16 MG/DL (0.70-1.30); GLOMERULAR FILTRATION RATE 9.3 (>35); MAGNESIUM LEVEL 2.1 MG/DL (1.8-2.4); POTASSIUM SERUM 4.6 MEQ/L (3.5-5.1); TOTAL PROTEIN 6.4 GM/DL (6.4-8.2)
[2017-07-24] MEDS: LEVOTHYROXINE 25MCG TABLET (0.025MG) PO SCH (05:38)
[2017-07-24] MEDS: SLF 3 ML SYR IV SCH ×2 (05:38→12:29)
[2017-07-24 07:10] VITALS: BP 120/59
[2017-07-24] MEDS: HEPARIN SOD (PORCINE) 5000 UNITS/ML VIAL SQ SCH (08:56)
[2017-07-24 08:57] VITALS: BP 170/75
[2017-07-24] MEDS: MEGESTROL SUSP 400 MG/10 ML UDC PO SCH (08:57)
[2017-07-24] MEDS: CARVedilol 3.125 MG TAB PO SCH (08:57)
[2017-07-24] MEDS: ASPIRIN 81 MG ENTERIC TAB PO SCH (08:57)
[2017-07-24] MEDS: FOLIC ACID 1 MG TAB PO SCH (08:57)
[2017-07-24] MEDS: (RENVELA) SEVELAMER **CARBONate** 800 MG TAB PO SCH ×2 (08:57→12:38)
[2017-07-24] MEDS ORDERED: CARV3.12 PO (10:53)
--- NOTE | 2017-07-25 04:05 | IPN ---
DATE OF SERVICE: 07/24/2017 SUBJECTIVE: The patient is seen this morning at the bedside. He is discharge pending. He denies any complaints. His tachycardia has improved since his nebulizer treatments were discontinued. VITAL SIGNS: Temperature 97.7, pulse 97, respiratory rate 20, blood pressure 120/59, saturating 100% on room air. Intake and output: Oral intake yesterday 740 mL. Weight on the bed scale today is 55.4 kg. GENERAL: The patient is seen dressed sitting up at the edge of the bed eating lunch in no acute distress. He has a frail, slight body habitus. Appears stated age. HEAD AND NECK: The oral mucosa is moist. There is no jugular venous distention (JVD). CARDIOVASCULAR: S1, S2. Regular rate. 2+ radial pulse. RESPIRATORY: Clear lungs bilaterally. ABDOMEN: Soft, nontender. Positive bowel sounds. EXTREMITIES: Decreased lean muscle mass. No edema. There is a left upper extremity fistula with thrill and bruit. GENITOURINARY: There is a Posadas catheter. NEUROLOGIC: He is at his baseline mentation. PSYCHIATRIC: Appropriate mood and affect. LABORATORY DATA: White count 7.2, hemoglobin 8.8, platelets 215. Sodium 140, potassium 4.6, bicarbonate 30, calcium 9.2, magnesium 2.1. INPATIENT MEDICATIONS: No significant change from prior. PROBLEMS: 1. End-stage renal disease. The patient is euvolemic and continues on his maintenance hemodialysis schedule. Next treatment will be as an outpatient 07/25/2017. 2. Metabolic encephalopathy. Resolved. The patient is at his baseline mentation without issue. 3. Hypertension, tachycardia. The patient has been started on Coreg 3.125 mg by mouth twice a day and has tolerated this well. His DuoNebs were also discontinued. His heart rate and his blood pressure are both acceptable at present. Thyroid-stimulating hormone (TSH) was also checked as he is on chronic levothyroxine supplementation and TSH was appropriate. 4. Discharge pending. The patient is cleared for discharge from a renal point of view with followup in the outpatient hemodialysis center.
--- NOTE | 2017-07-25 08:08 | IPN ---
DATE: 07/22/2017 SUBJECTIVE: The patient tells me that he is feeling much better. He tells me that he is not having any episodes of confusion. He remembers the last several days. He is awake, alert, oriented times three. VITAL SIGNS: Temperature 98.5, pulse 107, respiratory rate 20, blood pressure 137/84, oxygen saturations 99% in room air. GENERAL. He is a frail elderly man who sits at the edge of the bed. He greeted me as I entered the room. He does not appear to be in any acute distress. HEENT: He cranial nerves II XII are grossly intact. He has moist mucous membranes. Poor dentition. CARDIOVASCULAR: S1, S2. Appears regular and tachycardic without any extra heart sounds appreciated. RESPIRATORY: Clear. ABDOMEN: Benign. EXTREMITIES: No clubbing, cyanosis, or edema. He spontaneously moves all four extremities. LABORATORY STUDIES: WBC 8.5, hemoglobin 9.9, platelet count 251. Chemistry panel: Sodium 139, potassium 3.8, chloride 9.9, bicarbonate 28, BUN 32, creatinine 6.7. MICROBIOLOGY: Blood culture is negative after 48 hours. Urine culture is negative. IMAGING: The patient had an MRI revealed old right cerebellar lacunar infarct, small vessel ischemic disease, moderate volume loss. No acute cerebrovascular accident. An MRA was completed that revealed no aneurysm or arteriovenous malformations. There was some loss of the normal hyperintense signal on the distal vertebral artery from the C1 level to the foramen magnum. ASSESSMENT/PLAN: This is a 86-year-old man with metabolic encephalopathy. PROBLEMS: 1. Metabolic encephalopathy: He was initially admitted with a urinary tract infection (UTI) but this did resolve. He was discharged on ciprofloxacin and returned once again with metabolic encephalopathy. Again, it resolved. This time it feels as though it may be related to ciprofloxacin as it has not recurred since not being in this medication. He appears to be doing quite well. An MRI has been negative. His blood work has been fairly unremarkable. At the time he has not been cleared by physical therapy. 2. Endstage renal disease: On hemodialysis. Today is a regular hemodialysis day. Dr. Amaral's help has been greatly appreciated. He is curiously in sinus tachycardia. He may be a little bit intravascularly depleted. He does not appear to have any atrial fibrillation or unusual events on his telemetry by my review. 3. Hypertension: Actually he has not been requiring any medications at this time. 4. Hypothyroidism: He is on Synthroid. DISPOSITION: Pending clearance of physical therapy (PT), he may be able to be discharged as early as tomorrow.
--- NOTE | 2017-07-25 08:13 | DSES ---
DATE OF ADMISSION: 07/19/2017 DATE OF DISCHARGE: 07/24/2017 DISCHARGE DIAGNOSIS: Metabolic encephalopathy. SECONDARY DIAGNOSES: 1. End stage renal disease on hemodialysis. 2. Hypertension. 3. Hypothyroidism. 4. Sinus tachycardia. 5. Deep vein thrombosis (DVT). HOSPITAL COURSE: The patient is an 86-year-old man who was recently discharged for metabolic encephalopathy related to urinary tract infection (UTI). His mental status changes had resolved. He was discharged home and was doing quite well. He was actually discharged home on ciprofloxacin. Shortly thereafter, over the next 24 to 48 hours, he began to have deterioration in his mental status. He became more confused. He was brought back to the hospital by his daughter. Upon his arrival, ciprofloxacin was discontinued and his mental status once again returned to baseline. He was monitored for several days. He did undergo inpatient hemodialysis while he was here, which he tolerated well. He maintained his mental status and orientation throughout his stay. It was felt as though his second episode of metabolic encephalopathy was related to ciprofloxacin, I would avoid this medication in the future. We will document as such by a possible allergy. SUBJECTIVE: Today, the patient tells me that he is feeling well. He feels back to normal and he is eager to leave the hospital. OBJECTIVE: VITAL SIGNS: Temperature 97.7, pulse 97, respiratory rate 20, blood pressure 120/59, oxygen saturation 100% on room air. GENERAL: He is a frail, elderly, man sleeping peacefully as I enter the room, easily arousable to verbal stimuli. HEENT: Cranial nerves II-XII are grossly intact. He has poor dentition. Moist mucous membranes. No elevation in central venous pressure. CARDIOVASCULAR EXAM: S1, S2. RESPIRATORY EXAM: Clear. ABDOMINAL EXAM: Bowel sounds present. The abdomen is soft. EXTREMITIES: No clubbing, cyanosis, or edema. LABORATORY STUDIES: WBC 7.2, hemoglobin 8.8, platelet count 215. Chemistry panel: Sodium 140, potassium 4.6, chloride 103, bicarbonate 30, BUN 25, creatinine 6.1. Repeat urine culture was negative. Blood cultures were negative. The patient did have repeat MRI and MRA of the brain that did not reveal any new changes. ASSESSMENT AND PLAN: This is an 86-year-old man with metabolic encephalopathy related to ciprofloxacin use. 1. Metabolic encephalopathy, resolved. He is at baseline cognitive status. He has been cleared by physical therapy (PT) today. He has tolerated hemodialysis. 2. End stage renal disease on hemodialysis. Nephrology's help is greatly appreciated. He will continue on Renvela and Megace. 3. Hypertension. He is on Coreg 3.125 mg by mouth twice a day. 4. Hypothyroidism. He is on Synthroid. 5. Sinus tachycardia, resolved. Likely related to nebulizer treatments. 6. Deep vein thrombosis (DVT) prophylaxis. He has been on heparin. DISPOSITION: The patient is being discharged home. He is independent of his activities of daily living. His clinical syndrome has resolved. He is to followup with his primary care provider in 7 days. Followup with nephrology for hemodialysis. His activity is as prior to admission. His diet is a renal diet. He is to return to the emergency room if symptoms worsen. MEDICATIONS: At the time of discharge: - carvedilol 3.125 mg by mouth twice a day - extra strength Tylenol 1 gram every 6 hours as needed for pain - Tylenol with codeine one tablet every 8 hours as needed for pain - aspirin 81 mg daily - Combigan one drop in each eye twice a day - folic acid 1 mg daily - I-Caps one capsule daily - Synthroid 25 mcg daily - lopiramide 2 mg as needed for diarrhea - Megace 200 mg daily - Attala-Musa one tablet every evening - Renvela 1600 mg with meals - Travatan one drop in each eye daily at bedtime - vitamin D 50,000 units every 2 weeks Greater than 30 minutes was spent organizing disposition.
== END 2017-07-24 13:30 | disposition home health service (06) | DRG 91 ==
LOC: M ED 13:18 → M ED INP 18:59 → M PCU 07-20 17:50
PROVIDERS: ADMIT Internal Medicine; ATTEND Internal Medicine
DX: G92 Toxic encephalopathy (principal); N18.6 End stage renal disease; N39.0 Urinary tract infection, site not specified; I50.32 Chronic diastolic (congestive) heart failure; E46 Unspecified protein-calorie malnutrition; I13.2 Hypertensive heart and chronic kidney disease with heart failure and with stage 5 chronic kidney disease, or end stage renal disease; J44.9 Chronic obstructive pulmonary disease, unspecified; R33.9 Retention of urine, unspecified; H40.9 Unspecified glaucoma; H91.93 Unspecified hearing loss, bilateral; E87.5 Hyperkalemia; E03.9 Hypothyroidism, unspecified; R26.81 Unsteadiness on feet; D63.1 Anemia in chronic kidney disease; T36.8X5A Adverse effect of other systemic antibiotics, initial encounter; R00.0 Tachycardia, unspecified; Z99.2 Dependence on renal dialysis; Z86.73 Personal history of transient ischemic attack (TIA), and cerebral infarction without residual deficits; Z79.82 Long term (current) use of aspirin; Z79.899 Other long term (current) drug therapy; Z87.891 Personal history of nicotine dependence

== ENCOUNTER 2017-09-19 16:17 | Inpatient (IN) | payer MEDICARE, MEDICAID ==
[2017-09-19] MEDS: methylPREDNISolone INJ 125 MG/2 ML VIAL (J2930) IV (17:30)
[2017-09-19 17:31] LABS: BEDSIDE GLUCOSE 105 MG/DL (83-110)
[2017-09-19] MEDS: IPRATROPIUM 0.5MG/ALBUTEROL 2.5MG INH SOL UD 3ML (DUONEB)(J7620) NEB ×3 (17:37→18:23)
[2017-09-19 18:01] LABS: ABG BASE EXCESS 5.8 (-2.0-2.0); ABG HCO3 28.7 MEQ/L (22.0-26.0); ABG O2 SATURATION 97.7 % (95.0-99.0); ABG PARTIAL PRESSURE CO2 35.8 mmHg (35.0-45.0); ABG STANDARD HCO3 29.7 MEQ/L (22.0-26.0); ABG TOTAL CO2 29.8 MEQ/L (23.0-31.0); ABG pH (ARTERIAL) 7.522 UNITS (7.350-7.450); BASO % 0.2 % (0.0-1.0); EOS # 0.5 10^3/uL (0.0-0.50); EOS % 5.5 % (0.0-3.0); HEMATOCRIT 39.6 % (42.0-52.0); HEMOGLOBIN 12.8 g/dl (14.0-18.0); IMMATURE GRANULOCYTE # 0.3 10^3/uL (0-0); IMMATURE GRANULOCYTE % 3.6 % (0-0); LYMPH # 0.7 10^3/uL (1.5-4.5); LYMPH % 7.8 % (24.0-44.0); MEAN CORPUSCULAR HEMOGLOBIN 31.1 pg (27.0-33.0); MEAN CORPUSCULAR HGB CONC 32.3 g/dl (32.0-36.5); MEAN CORPUSCULAR VOLUME 96.4 fl (80.0-96.0); MONO # 1.2 10^3/uL (0.0-0.8); MONO % 13.9 % (0.0-5.0); NEUTROPHILS # 5.8 10^3/uL (1.8-7.7); PLATELET COUNT, AUTOMATED 189 10^3/uL (150-450); RED BLOOD COUNT 4.11 10^6/uL (4.30-6.10); RED CELL DISTRIBUTION WIDTH 16.1 % (11.5-14.5); WHITE BLOOD COUNT 8.4 10^3/uL (4.0-10.0)
[2017-09-19 18:05] LABS: LACTIC ACID SEPSIS PROTOCOL 1.4 MMOL/L (0.4-2.0)
[2017-09-19 18:05] LABS: ANION GAP 10 MEQ/L (8-16); BLOOD UREA NITROGEN 11 MG/DL (7-18); CALCIUM LEVEL 8.9 MG/DL (8.8-10.2); CARBON DIOXIDE LEVEL 34 MEQ/L (21-32); CHLORIDE LEVEL 98 MEQ/L (98-107); CPK CREATINE PHOSPHOKINASE 37 U/L (39-308); CREATININE FOR GFR 3.43 MG/DL (0.70-1.30); GLOMERULAR FILTRATION RATE 18.3 (>35); GLUCOSE, FASTING 113 MG/DL (70-100); POTASSIUM SERUM 3.5 MEQ/L (3.5-5.1); SODIUM LEVEL 142 MEQ/L (136-145); TROPONIN I 0.02 NG/ML (< 0.10)
[2017-09-19 18:06] LABS: CK-MB VALUE MASS 1.9 NG/ML (0.0-3.6); MB/CK RELATIVE INDEX 5.13 (< OR =4)
[2017-09-19 18:15] LABS: INFLUENZA A AMPLIFICATION NEGATIVE (NEGATIVE); INFLUENZA B AMPLIFICATION NEGATIVE (NEGATIVE)
[2017-09-19] MEDS ORDERED: ONDANSETRON 4MG/2ML VIAL (J2405) IV (19:00)
[2017-09-19] MEDS ORDERED: IPRATROPIUM 0.5MG/ALBUTEROL 2.5MG INH SOL UD 3ML (DUONEB)(J7620) NEB (19:15)
[2017-09-19] MEDS: HEPARIN SOD (PORCINE) 5000 UNITS/ML VIAL SC (22:40)
[2017-09-19] MEDS: CARVedilol 3.125 MG TAB PO (22:40)
[2017-09-19] MEDS: LATANOPROST 0.005% OPHTH SOLN 2.5 ML OU (22:41)
[2017-09-19] MEDS: NEPHRO-VIT TAB (NEPHROCAPS) PO (22:41)
[2017-09-19] MEDS ORDERED: PREVNAR 13 VACCINE SYRINGE (CPT CODE:90670) IM (23:30)
[2017-09-20] MEDS: methylPREDNISolone INJ 125 MG/2 ML VIAL (J2930) IV ×2 (05:39→18:08)
[2017-09-20] MEDS: LEVOTHYROXINE 25MCG TABLET (0.025MG) PO (05:40)
[2017-09-20] MEDS: HEPARIN SOD (PORCINE) 5000 UNITS/ML VIAL SC ×3 (05:40→21:34)
[2017-09-20 07:32] LABS: HEMATOCRIT 32.2 % (42.0-52.0); MEAN CORPUSCULAR HEMOGLOBIN 31.5 pg (27.0-33.0); MEAN CORPUSCULAR HGB CONC 32.6 g/dl (32.0-36.5); MEAN CORPUSCULAR VOLUME 96.7 fl (80.0-96.0); PLATELET COUNT, AUTOMATED 138 10^3/uL (150-450); RED BLOOD COUNT 3.33 10^6/uL (4.30-6.10); RED CELL DISTRIBUTION WIDTH 16.2 % (11.5-14.5); WHITE BLOOD COUNT 4.2 10^3/uL (4.0-10.0)
[2017-09-20 07:42] LABS: HEMOGLOBIN 10.5 g/dl (14.0-18.0)
[2017-09-20] MEDS: (RENVELA) SEVELAMER **CARBONate** 800 MG TAB PO ×3 (08:00→18:07)
[2017-09-20 08:11] LABS: ALBUMIN 2.4 GM/DL (3.2-5.2); ANION GAP 8 MEQ/L (8-16); BLOOD UREA NITROGEN 20 MG/DL (7-18); CALCIUM LEVEL 8.3 MG/DL (8.8-10.2); CARBON DIOXIDE LEVEL 31 MEQ/L (21-32); CHLORIDE LEVEL 101 MEQ/L (98-107); CREATININE FOR GFR 4.91 MG/DL (0.70-1.30); GLOMERULAR FILTRATION RATE 12.1 (>35); GLUCOSE, FASTING 130 MG/DL (70-100); PHOSPHORUS LEVEL 3.4 MG/DL (2.5-4.9); POTASSIUM SERUM 3.6 MEQ/L (3.5-5.1); SODIUM LEVEL 140 MEQ/L (136-145)
[2017-09-20] MEDS: IPRATROPIUM 0.5MG/ALBUTEROL 2.5MG INH SOL UD 3ML (DUONEB)(J7620) NEB ×4 (08:28→20:26)
[2017-09-20] MEDS: AZITHROMYCIN 250 MG TAB PO (09:07)
[2017-09-20] MEDS: MEGESTROL SUSP 400 MG/10 ML UDC PO (09:07)
[2017-09-20] MEDS: ASPIRIN 81 MG ENTERIC TAB PO (09:07)
[2017-09-20] MEDS: FOLIC ACID 1 MG TAB PO (09:07)
[2017-09-20 09:09] LABS: CPK CREATINE PHOSPHOKINASE 20 U/L (39-308)
[2017-09-20 09:10] LABS: C REACTIVE PROTEIN QUANTITATIV 4.94 MG/DL (0.00-0.30); TROPONIN I 0.02 NG/ML (< 0.10)
[2017-09-20] MEDS: CARVedilol 3.125 MG TAB PO ×2 (09:10→21:35)
[2017-09-20] MEDS: LATANOPROST 0.005% OPHTH SOLN 2.5 ML OU (21:34)
[2017-09-20] MEDS: NEPHRO-VIT TAB (NEPHROCAPS) PO (21:35)
[2017-09-20 22:17] LABS: APPEARANCE, URINE TURBID (CLEAR); BACTERIA, URINE AUTO 3+ (NEGATIVE); BILIRUBIN, URINE AUTO NEGATIVE (NEGATIVE); BLOOD, URINE BLOOD 1+ (NEGATIVE); COLOR, URINE YELLOW (YELLOW); GLUCOSE, URINE (UA) AUTO NEGATIVE (NEGATIVE); KETONE, URINE AUTO NEGATIVE (NEGATIVE); LEUKOCYTE ESTERASE, URINE AUTO 3+ (NEGATIVE); NITRITE, URINE AUTO NEGATIVE (NEGATIVE); PROTEIN, URINE AUTO 2+ mg/dL (NEGATIVE); RBC, URINE AUTO 57 /HPF (0-3); SPECIFIC GRAVITY URINE AUTO 1.009 (1.002-1.035); SQUAMOUS EPITHELIAL CELL UR AU 0 /HPF (0-6); UROBILINOGEN, URINE AUTO 0.2 mg/dL (0.0-2.0); WBC, URINE AUTO TNTC /HPF (0-3)
[2017-09-21] MEDS: AZITHROMYCIN 250 MG TAB PO (06:26)
[2017-09-21] MEDS: ASPIRIN 81 MG ENTERIC TAB PO (06:26)
[2017-09-21] MEDS: FOLIC ACID 1 MG TAB PO (06:27)
[2017-09-21] MEDS: LEVOTHYROXINE 25MCG TABLET (0.025MG) PO (06:27)
[2017-09-21] MEDS: CARVedilol 3.125 MG TAB PO ×2 (06:27→20:53)
[2017-09-21] MEDS: methylPREDNISolone INJ 40 MG/1 ML VIAL (J2920) IV ×2 (06:27→18:31)
[2017-09-21] MEDS: (RENVELA) SEVELAMER **CARBONate** 800 MG TAB PO ×3 (06:27→18:32)
[2017-09-21] MEDS: HEPARIN SOD (PORCINE) 5000 UNITS/ML VIAL SC ×3 (06:28→20:53)
[2017-09-21 06:30] LABS: HEMATOCRIT 28.4 % (42.0-52.0); HEMOGLOBIN 9.5 g/dl (14.0-18.0); MEAN CORPUSCULAR HEMOGLOBIN 31.5 pg (27.0-33.0); MEAN CORPUSCULAR HGB CONC 33.5 g/dl (32.0-36.5); PLATELET COUNT, AUTOMATED 162 10^3/uL (150-450); RED BLOOD COUNT 3.02 10^6/uL (4.30-6.10); RED CELL DISTRIBUTION WIDTH 15.9 % (11.5-14.5); WHITE BLOOD COUNT 12.9 10^3/uL (4.0-10.0)
[2017-09-21 06:46] LABS: ALBUMIN 2.1 GM/DL (3.2-5.2); ANION GAP 7 MEQ/L (8-16); BLOOD UREA NITROGEN 40 MG/DL (7-18); C REACTIVE PROTEIN QUANTITATIV 2.45 MG/DL (0.00-0.30); CALCIUM LEVEL 8.2 MG/DL (8.8-10.2); CARBON DIOXIDE LEVEL 29 MEQ/L (21-32); CHLORIDE LEVEL 97 MEQ/L (98-107); CREATININE FOR GFR 6.43 MG/DL (0.70-1.30); GLOMERULAR FILTRATION RATE 8.8 (>35); GLUCOSE, FASTING 117 MG/DL (70-100); MAGNESIUM LEVEL 2.2 MG/DL (1.8-2.4); PHOSPHORUS LEVEL 3.1 MG/DL (2.5-4.9); POTASSIUM SERUM 4.1 MEQ/L (3.5-5.1); SODIUM LEVEL 133 MEQ/L (136-145)
[2017-09-21] MEDS: PREVNAR 13 VACCINE SYRINGE (CPT CODE:90670) IM (08:12)
[2017-09-21] MEDS: IPRATROPIUM 0.5MG/ALBUTEROL 2.5MG INH SOL UD 3ML (DUONEB)(J7620) NEB ×3 (08:35→23:51)
[2017-09-21] MEDS: MEGESTROL SUSP 400 MG/10 ML UDC PO (14:18)
[2017-09-21] MEDS: NEPHRO-VIT TAB (NEPHROCAPS) PO (20:53)
[2017-09-21] MEDS: LATANOPROST 0.005% OPHTH SOLN 2.5 ML OU (20:53)
[2017-09-22] MEDS: MEGESTROL SUSP 400 MG/10 ML UDC PO (05:33)
[2017-09-22] MEDS: AZITHROMYCIN 250 MG TAB PO (05:34)
[2017-09-22] MEDS: FOLIC ACID 1 MG TAB PO (05:34)
[2017-09-22] MEDS: HEPARIN SOD (PORCINE) 5000 UNITS/ML VIAL SC ×2 (05:34→12:50)
[2017-09-22] MEDS: LEVOTHYROXINE 25MCG TABLET (0.025MG) PO (05:34)
[2017-09-22] MEDS: ASPIRIN 81 MG ENTERIC TAB PO (05:34)
[2017-09-22] MEDS: CARVedilol 3.125 MG TAB PO (05:34)
[2017-09-22] MEDS: methylPREDNISolone INJ 40 MG/1 ML VIAL (J2920) IV (05:35)
[2017-09-22 06:17] LABS: HEMATOCRIT 27.7 % (42.0-52.0); HEMOGLOBIN 9.3 g/dl (14.0-18.0); MEAN CORPUSCULAR HGB CONC 33.6 g/dl (32.0-36.5); MEAN CORPUSCULAR VOLUME 92.3 fl (80.0-96.0); PLATELET COUNT, AUTOMATED 191 10^3/uL (150-450); RED CELL DISTRIBUTION WIDTH 15.8 % (11.5-14.5); WHITE BLOOD COUNT 14.1 10^3/uL (4.0-10.0)
[2017-09-22 06:33] LABS: ALBUMIN 2.1 GM/DL (3.2-5.2); ANION GAP 10 MEQ/L (8-16); BLOOD UREA NITROGEN 54 MG/DL (7-18); C REACTIVE PROTEIN QUANTITATIV 1.49 MG/DL (0.00-0.30); CARBON DIOXIDE LEVEL 28 MEQ/L (21-32); CHLORIDE LEVEL 92 MEQ/L (98-107); CREATININE FOR GFR 7.57 MG/DL (0.70-1.30); GLOMERULAR FILTRATION RATE 7.3 (>35); GLUCOSE, FASTING 102 MG/DL (70-100); MAGNESIUM LEVEL 2.1 MG/DL (1.8-2.4); PHOSPHORUS LEVEL 3.1 MG/DL (2.5-4.9); POTASSIUM SERUM 4.3 MEQ/L (3.5-5.1); SODIUM LEVEL 130 MEQ/L (136-145)
[2017-09-22] MEDS: IPRATROPIUM 0.5MG/ALBUTEROL 2.5MG INH SOL UD 3ML (DUONEB)(J7620) NEB (07:39)
[2017-09-22] MEDS: (RENVELA) SEVELAMER **CARBONate** 800 MG TAB PO ×2 (07:41→12:36)
== END 2017-09-22 14:17 | disposition home or self-care (01) | DRG 190 ==
LOC: M MSPAV 09-20 14:07 → M ED 16:17 → M ED INP 18:56
PROVIDERS: Hospitalist
DX: J44.1 Chronic obstructive pulmonary disease with (acute) exacerbation (principal); N18.6 End stage renal disease; I50.32 Chronic diastolic (congestive) heart failure; R64 Cachexia; Z68.1 Body mass index [BMI] 19.9 or less, adult; E87.1 Hypo-osmolality and hyponatremia; J20.9 Acute bronchitis, unspecified; D63.1 Anemia in chronic kidney disease; F10.21 Alcohol dependence, in remission; Z86.73 Personal history of transient ischemic attack (TIA), and cerebral infarction without residual deficits; E03.9 Hypothyroidism, unspecified; Z99.2 Dependence on renal dialysis; Z96.0 Presence of urogenital implants; Z87.440 Personal history of urinary (tract) infections; Z95.828 Presence of other vascular implants and grafts; Z87.891 Personal history of nicotine dependence; Z79.82 Long term (current) use of aspirin; Z88.1 Allergy status to other antibiotic agents

== ENCOUNTER 2017-11-01 10:55 | Emergency (ER) | payer MEDICARE, MEDICAID | END 2017-11-01 12:29 | disposition home or self-care (01) | LOC: M ED 10:55 | DX: K04.7 Periapical abscess without sinus (principal); K02.9 Dental caries, unspecified; S02.5XXA Fracture of tooth (traumatic), initial encounter for closed fracture; X58.XXXA Exposure to other specified factors, initial encounter; Y92.89 Other specified places as the place of occurrence of the external cause; J44.9 Chronic obstructive pulmonary disease, unspecified; Z87.891 Personal history of nicotine dependence; H40.9 Unspecified glaucoma; K21.9 Gastro-esophageal reflux disease without esophagitis; K44.9 Diaphragmatic hernia without obstruction or gangrene; K57.90 Diverticulosis of intestine, part unspecified, without perforation or abscess without bleeding; N18.6 End stage renal disease; Z99.2 Dependence on renal dialysis; M54.9 Dorsalgia, unspecified; E03.9 Hypothyroidism, unspecified; Z79.899 Other long term (current) drug therapy; Z79.82 Long term (current) use of aspirin; Z88.1 Allergy status to other antibiotic agents | CPT/HCPCS: 99282 ==

== ENCOUNTER 2017-11-10 10:15 | Inpatient (IN) | payer MEDICARE, MEDICAID ==
[2017-11-10] MEDS: SODIUM CHLORIDE 0.9% 1000 ML IV ×2 (10:51→11:35)
[2017-11-10 11:00] LABS: BASO % 0.4 % (0.0-1.0); EOS # 0.4 10^3/uL (0.0-0.50); EOS % 4.4 % (0.0-3.0); HEMATOCRIT 27.3 % (42.0-52.0); HEMOGLOBIN 8.6 g/dl (14.0-18.0); LYMPH # 1.3 10^3/uL (1.5-4.5); LYMPH % 14.7 % (24.0-44.0); MEAN CORPUSCULAR HEMOGLOBIN 32.7 pg (27.0-33.0); MEAN CORPUSCULAR HGB CONC 31.5 g/dl (32.0-36.5); MEAN CORPUSCULAR VOLUME 103.8 fl (80.0-96.0); MONO # 1.2 10^3/uL (0.0-0.8); MONO % 13.6 % (0.0-5.0); NEUTROPHILS # 5.6 10^3/uL (1.8-7.7); NEUTROPHILS % 64.9 % (36.0-66.0); PLATELET COUNT, AUTOMATED 196 10^3/uL (150-450); RED BLOOD COUNT 2.63 10^6/uL (4.30-6.10); RED CELL DISTRIBUTION WIDTH 18.6 % (11.5-14.5); WHITE BLOOD COUNT 8.6 10^3/uL (4.0-10.0)
[2017-11-10 11:10] LABS: AMORPHOUS SEDIMENT RFX SMALL (NEGATIVE); KETONE, URINE AUTO RFX NEGATIVE (NEGATIVE); LEUKOCYTE ESTERASE UR AUTO RFX NEGATIVE (NEGATIVE); NITRITE, URINE AUTO RFX NEGATIVE (NEGATIVE); RBC, URINE AUTO RFX 28 /HPF (0-3); SQUAM EPITHELIAL CELL UR AURFX 0 /HPF (0-6); WBC, URINE AUTO RFX 4 /HPF (0-3)
[2017-11-10 11:15] LABS: INR 1.02; PROTHROMBIN TIME 13.5 SECONDS (12.4-14.5)
[2017-11-10 11:18] LABS: LACTIC ACID SEPSIS PROTOCOL 1.5 MMOL/L (0.4-2.0)
[2017-11-10 11:18] LABS: ALBUMIN 2.8 GM/DL (3.2-5.2); ALBUMIN/GLOBULIN RATIO 0.82 (1.00-1.93); ALKALINE PHOSPHATASE 95 U/L (45-117); ALT/SGPT 17 U/L (12-78); AMYLASE 103 U/L (25-115); ANION GAP 6 MEQ/L (8-16); AST/SGOT 17 U/L (7-37); BILIRUBIN,DIRECT 0.1 MG/DL (0.0-0.2); BILIRUBIN,TOTAL 0.4 MG/DL (0.2-1.0); BLOOD UREA NITROGEN 15 MG/DL (7-18); CALCIUM LEVEL 8.8 MG/DL (8.8-10.2); CARBON DIOXIDE LEVEL 33 MEQ/L (21-32); CHLORIDE LEVEL 104 MEQ/L (98-107); CK-MB VALUE MASS < 1.0 NG/ML (<3.6); CPK CREATINE PHOSPHOKINASE 23 U/L (39-308); CREATININE FOR GFR 3.93 MG/DL (0.70-1.30); GLOMERULAR FILTRATION RATE 15.6 (>35); GLUCOSE, FASTING 99 MG/DL (70-100); LIPASE 153 U/L (73-393); MB/CK RELATIVE INDEX 4.34 (< OR =4); POTASSIUM SERUM 4.8 MEQ/L (3.5-5.1); SODIUM LEVEL 143 MEQ/L (136-145); TOTAL PROTEIN 6.2 GM/DL (6.4-8.2); TROPONIN I 0.04 NG/ML (< 0.10)
[2017-11-10] MEDS ORDERED: ACETAMINOPHEN TAB 650MG DOSE (2X325MG) PO (14:00)
[2017-11-10] MEDS ORDERED: IPRATROPIUM 0.5MG/ALBUTEROL 2.5MG INH SOL UD 3ML (DUONEB)(J7620) NEB (14:00)
[2017-11-10] MEDS: IPRATROPIUM 0.5MG/ALBUTEROL 2.5MG INH SOL UD 3ML (DUONEB)(J7620) NEB ×2 (14:40→20:00)
[2017-11-10 15:04] LABS: FERRITIN 1330 NG/ML (26-388); IRON (FE) 78 UG/DL (65-175); PERCENT SATURATION 35.6 % (19.7-50.0); TOTAL IRON BINDING CAPACITY 219 UG/DL (250-450)
[2017-11-10 15:30] LABS: VITAMIN B12 LEVEL 322 PG/ML
[2017-11-10 15:31] LABS: FOLATE > 24.0 NG/ML
[2017-11-10 16:49] LABS: IMMEDIATE SPIN CROSSMATCH 1 1
[2017-11-10 20:26] LABS: CK-MB VALUE MASS < 1.0 NG/ML (<3.6); CPK CREATINE PHOSPHOKINASE 24 U/L (39-308); MB/CK RELATIVE INDEX 4.16 (< OR =4); TROPONIN I 0.03 NG/ML (< 0.10)
[2017-11-10] MEDS: CARVedilol 3.125 MG TAB PO (20:45)
[2017-11-10] MEDS: LATANOPROST 0.005% OPHTH SOLN 2.5 ML OU (20:48)
[2017-11-11 02:44] LABS: CK-MB VALUE MASS < 1.0 NG/ML (<3.6); CPK CREATINE PHOSPHOKINASE 32 U/L (39-308); MB/CK RELATIVE INDEX 3.12 (< OR =4); TROPONIN I 0.03 NG/ML (< 0.10)
[2017-11-11] MEDS: CARVedilol 3.125 MG TAB PO (04:22)
[2017-11-11] MEDS: IPRATROPIUM 0.5MG/ALBUTEROL 2.5MG INH SOL UD 3ML (DUONEB)(J7620) NEB ×4 (04:29→20:07)
[2017-11-11] MEDS: LEVOTHYROXINE 25MCG TABLET (0.025MG) PO (06:16)
[2017-11-11 07:57] LABS: BASO % 0.4 % (0.0-1.0); EOS # 0.5 10^3/uL (0.0-0.50); EOS % 5.2 % (0.0-3.0); HEMATOCRIT 33.1 % (42.0-52.0); IMMATURE GRANULOCYTE % 1.9 % (0-3.0); LYMPH # 1.3 10^3/uL (1.5-4.5); LYMPH % 13.3 % (24.0-44.0); MEAN CORPUSCULAR HEMOGLOBIN 32.3 pg (27.0-33.0); MEAN CORPUSCULAR VOLUME 100.9 fl (80.0-96.0); MONO # 1.3 10^3/uL (0.0-0.8); MONO % 13.2 % (0.0-5.0); NEUTROPHILS # 6.2 10^3/uL (1.8-7.7); PLATELET COUNT, AUTOMATED 208 10^3/uL (150-450); RED BLOOD COUNT 3.28 10^6/uL (4.30-6.10); WHITE BLOOD COUNT 9.5 10^3/uL (4.0-10.0)
[2017-11-11 08:03] LABS: HEMOGLOBIN 10.6 g/dl (14.0-18.0)
[2017-11-11 08:33] LABS: ALBUMIN 2.9 GM/DL (3.2-5.2); ALBUMIN/GLOBULIN RATIO 0.73 (1.00-1.93); ALKALINE PHOSPHATASE 103 U/L (45-117); ALT/SGPT 17 U/L (12-78); ANION GAP 7 MEQ/L (8-16); AST/SGOT 17 U/L (7-37); BILIRUBIN,TOTAL 0.6 MG/DL (0.2-1.0); BLOOD UREA NITROGEN 24 MG/DL (7-18); CALCIUM LEVEL 8.7 MG/DL (8.8-10.2); CARBON DIOXIDE LEVEL 30 MEQ/L (21-32); CHLORIDE LEVEL 105 MEQ/L (98-107); CPK CREATINE PHOSPHOKINASE 33 U/L (39-308); CREATININE FOR GFR 5.27 MG/DL (0.70-1.30); GLOMERULAR FILTRATION RATE 11.1 (>35); GLUCOSE, FASTING 90 MG/DL (70-100); POTASSIUM SERUM 4.4 MEQ/L (3.5-5.1); SODIUM LEVEL 142 MEQ/L (136-145); TOTAL PROTEIN 6.9 GM/DL (6.4-8.2); TROPONIN I 0.04 NG/ML (< 0.10)
[2017-11-11 08:34] LABS: MB/CK RELATIVE INDEX 3.03 (< OR =4)
[2017-11-11] MEDS: cloNIDine 0.1 MG TAB PO ×3 (08:50→17:24)
[2017-11-11] MEDS: FOLIC ACID 1 MG TAB PO (08:50)
[2017-11-11] MEDS: ASPIRIN 81 MG ENTERIC TAB PO (08:50)
[2017-11-11 10:29] LABS: NT-PRO BNP 17662 PG/ML (<450)
[2017-11-11 10:36] LABS: CK-MB VALUE MASS 1.4 NG/ML (<3.6); CPK CREATINE PHOSPHOKINASE 35 U/L (39-308); TROPONIN I 0.04 NG/ML (< 0.10)
[2017-11-11] MEDS: **hydrALAZINE** 10 MG TAB PO ×3 (12:20→17:24)
[2017-11-11] MEDS: CARVedilol 6.25 MG TAB PO ×2 (13:00→21:22)
[2017-11-11] MEDS: HEPARIN 1,000 UNITS/ML 10ML VIAL (FOR RADIOLOGY& DIALYSIS ONLY) IV (14:00)
[2017-11-11] MEDS: LATANOPROST 0.005% OPHTH SOLN 2.5 ML OU (21:22)
[2017-11-12] MEDS: cloNIDine 0.1 MG TAB PO ×3 (00:43→05:45)
[2017-11-12] MEDS: **hydrALAZINE** 10 MG TAB PO ×3 (00:43→09:00)
[2017-11-12] MEDS: IPRATROPIUM 0.5MG/ALBUTEROL 2.5MG INH SOL UD 3ML (DUONEB)(J7620) NEB ×3 (02:00→13:06)
[2017-11-12] MEDS: LEVOTHYROXINE 25MCG TABLET (0.025MG) PO (05:04)
[2017-11-12 06:28] LABS: BASO % 0.5 % (0.0-1.0); EOS # 0.4 10^3/uL (0.0-0.50); EOS % 5.8 % (0.0-3.0); HEMATOCRIT 29.2 % (42.0-52.0); HEMOGLOBIN 9.4 g/dl (14.0-18.0); IMMATURE GRANULOCYTE % 1.3 % (0-3.0); LYMPH # 1.1 10^3/uL (1.5-4.5); LYMPH % 18.5 % (24.0-44.0); MEAN CORPUSCULAR HEMOGLOBIN 32.4 pg (27.0-33.0); MEAN CORPUSCULAR HGB CONC 32.2 g/dl (32.0-36.5); MEAN CORPUSCULAR VOLUME 100.7 fl (80.0-96.0); MONO # 1.1 10^3/uL (0.0-0.8); MONO % 18.6 % (0.0-5.0); NEUTROPHILS # 3.3 10^3/uL (1.8-7.7); NEUTROPHILS % 55.3 % (36.0-66.0); PLATELET COUNT, AUTOMATED 158 10^3/uL (150-450); RED CELL DISTRIBUTION WIDTH 17.6 % (11.5-14.5)
[2017-11-12 06:44] LABS: ALBUMIN 2.5 GM/DL (3.2-5.2); ALBUMIN/GLOBULIN RATIO 0.68 (1.00-1.93); ALKALINE PHOSPHATASE 93 U/L (45-117); ALT/SGPT 13 U/L (12-78); ANION GAP 5 MEQ/L (8-16); AST/SGOT 16 U/L (7-37); BILIRUBIN,TOTAL 0.6 MG/DL (0.2-1.0); BLOOD UREA NITROGEN 11 MG/DL (7-18); CALCIUM LEVEL 8.6 MG/DL (8.8-10.2); CARBON DIOXIDE LEVEL 32 MEQ/L (21-32); CHLORIDE LEVEL 101 MEQ/L (98-107); GLOMERULAR FILTRATION RATE 20.5 (>35); GLUCOSE, FASTING 89 MG/DL (70-100); SODIUM LEVEL 138 MEQ/L (136-145); TOTAL PROTEIN 6.2 GM/DL (6.4-8.2)
[2017-11-12] MEDS: FOLIC ACID 1 MG TAB PO (09:14)
[2017-11-12] MEDS: ASPIRIN 81 MG ENTERIC TAB PO (09:14)
[2017-11-12] MEDS: CARVedilol 6.25 MG TAB PO (09:14)
[2017-11-12] MEDS ORDERED: cloNIDine 0.1 MG TAB PO (12:00)
[2017-11-12] MEDS: amLODIPine 5 MG TAB PO (12:07)
== END 2017-11-12 15:17 | disposition home health service (06) | DRG 314 ==
LOC: M MS5PR 11-11 12:49 → M ED 10:15 → M ED INP 13:31
PROC: 30233N1 Transfusion of Nonautologous Red Blood Cells into Peripheral Vein, Percutaneous Approach (ICD-10-PCS; principal; 2017-11-10)
PROC: 5A1D70Z Performance of Urinary Filtration, Intermittent, Less than 6 Hours Per Day (ICD-10-PCS; 2017-11-11)
DX: I95.9 Hypotension, unspecified (principal); N18.6 End stage renal disease; I50.32 Chronic diastolic (congestive) heart failure; I13.2 Hypertensive heart and chronic kidney disease with heart failure and with stage 5 chronic kidney disease, or end stage renal disease; Z99.2 Dependence on renal dialysis; J44.9 Chronic obstructive pulmonary disease, unspecified; E03.9 Hypothyroidism, unspecified; D63.1 Anemia in chronic kidney disease; N40.1 Benign prostatic hyperplasia with lower urinary tract symptoms; Z86.73 Personal history of transient ischemic attack (TIA), and cerebral infarction without residual deficits; Z96.0 Presence of urogenital implants; Z87.440 Personal history of urinary (tract) infections; Z68.20 Body mass index [BMI] 20.0-20.9, adult; Z95.828 Presence of other vascular implants and grafts; Z85.47 Personal history of malignant neoplasm of testis; Z87.891 Personal history of nicotine dependence; Z79.82 Long term (current) use of aspirin; Z79.899 Other long term (current) drug therapy; Z88.1 Allergy status to other antibiotic agents

== ENCOUNTER 2018-01-18 15:02 | Emergency (ER) | payer MEDICARE, MEDICAID ==
[2018-01-19 03:17] LABS: CK-MB VALUE MASS 1.2 NG/ML (<3.6); CPK CREATINE PHOSPHOKINASE 39 U/L (39-308); MB/CK RELATIVE INDEX 3.07 (< OR =4); TROPONIN I 0.02 NG/ML (< 0.10)
[2018-01-19 03:18] LABS: ALBUMIN 3.7 GM/DL (3.2-5.2); ALKALINE PHOSPHATASE 87 U/L (45-117); ALT/SGPT 18 U/L (12-78); ANION GAP 5 MEQ/L (8-16); AST/SGOT 24 U/L (7-37); BILIRUBIN,DIRECT 0.1 MG/DL (0.0-0.2); BILIRUBIN,TOTAL 0.5 MG/DL (0.2-1.0); BLOOD UREA NITROGEN 12 MG/DL (7-18); CALCIUM LEVEL 9.3 MG/DL (8.8-10.2); CARBON DIOXIDE LEVEL 37 MEQ/L (21-32); CHLORIDE LEVEL 97 MEQ/L (98-107); CK-MB VALUE MASS 1.9 NG/ML (<3.6); CPK CREATINE PHOSPHOKINASE 49 U/L (39-308); CREATININE FOR GFR 3.26 MG/DL (0.70-1.30); GLOMERULAR FILTRATION RATE 19.3 (>35); GLUCOSE, FASTING 84 MG/DL (70-100); MB/CK RELATIVE INDEX 3.87 (< OR =4); POTASSIUM SERUM 4.4 MEQ/L (3.5-5.1); SODIUM LEVEL 139 MEQ/L (136-145); TOTAL PROTEIN 7.8 GM/DL (6.4-8.2); TROPONIN I < 0.02 NG/ML (< 0.10)
[2018-01-19 07:10] LABS: BASO % 0.3 % (0.0-1.0); EOS # 0.7 10^3/uL (0.0-0.50); EOS % 9.8 % (0.0-3.0); HEMATOCRIT 35.5 % (42.0-52.0); HEMOGLOBIN 11.7 g/dl (13.5-17.5); IMMATURE GRANULOCYTE # 0.2 10^3/uL (0-0); IMMATURE GRANULOCYTE % 2.4 % (0-3.0); LYMPH # 0.9 10^3/uL (1.5-4.5); LYMPH % 12.9 % (24.0-44.0); MEAN CORPUSCULAR HEMOGLOBIN 32.3 pg (27.0-33.0); MEAN CORPUSCULAR VOLUME 98.1 fl (80.0-96.0); MONO # 1.2 10^3/uL (0.0-0.8); MONO % 16.8 % (0.0-5.0); NEUTROPHILS # 4.1 10^3/uL (1.8-7.7); NEUTROPHILS % 57.8 % (36.0-66.0); PLATELET COUNT, AUTOMATED 120 10^3/uL (150-450); POS COUNT POS FLAG; RED BLOOD COUNT 3.62 10^6/uL (4.30-6.10); RED CELL DISTRIBUTION WIDTH 16.6 % (11.5-14.5); WHITE BLOOD COUNT 7.2 10^3/uL (4.0-10.0)
== END 2018-01-19 02:54 | disposition home or self-care (01) ==
LOC: M ED 15:02
DX: N18.6 End stage renal disease (principal); R07.89 Other chest pain; I25.10 Atherosclerotic heart disease of native coronary artery without angina pectoris; I10 Essential (primary) hypertension; J44.9 Chronic obstructive pulmonary disease, unspecified; K57.30 Diverticulosis of large intestine without perforation or abscess without bleeding; Z79.82 Long term (current) use of aspirin; Z79.899 Other long term (current) drug therapy; Z88.1 Allergy status to other antibiotic agents
CPT/HCPCS: 71046

== ENCOUNTER → 2018-02-24 | Outpatient (REF) | payer MEDICARE, MEDICAID ==
[2018-02-24 18:11] LABS: AMORPHOUS SEDIMENT SMALL (NEGATIVE); APPEARANCE, URINE CLOUDY (CLEAR); BACTERIA, URINE AUTO 3+ (NEGATIVE); BILIRUBIN, URINE AUTO NEGATIVE (NEGATIVE); BLOOD, URINE BLOOD 1+ (NEGATIVE); COLOR, URINE AMBER (YELLOW); GLUCOSE, URINE (UA) AUTO NEGATIVE (NEGATIVE); KETONE, URINE AUTO NEGATIVE (NEGATIVE); LEUKOCYTE ESTERASE, URINE AUTO 3+ (NEGATIVE); MUCUS, URINE LARGE (NEGATIVE); NITRITE, URINE AUTO NEGATIVE (NEGATIVE); PROTEIN, URINE AUTO 3+ mg/dL (NEGATIVE); RBC, URINE AUTO 135 /HPF (0-3); SPECIFIC GRAVITY URINE AUTO 1.012 (1.002-1.035); SQUAMOUS EPITHELIAL CELL UR AU 0 /HPF (0-6); UROBILINOGEN, URINE AUTO 0.2 mg/dL (0.0-2.0); WBC, URINE AUTO 111 /HPF (0-3)
== END ==
LOC: M LAB REF 17:00
DX: N39.0 Urinary tract infection, site not specified (principal); R53.1 Weakness
CPT/HCPCS: 81001

== ENCOUNTER 2018-04-06 18:31 | Emergency (ER) | payer MEDICARE, MEDICAID ==
[2018-04-06 19:39] LABS: VENOUS BASE EXCESS 7.7 (-2.0-2.0); VENOUS HCO3 34.1 MEQ/L (23.0-27.0); VENOUS O2 SATURATION 54.2 % (60.0-80.0); VENOUS PARTIAL PRESSURE O2 30.8 mmHg (30.0-50.0); VENOUS PH 7.402 UNITS (7.330-7.430); VENOUS STANDARD HCO3 30.6 MEQ/L; VENOUS TOTAL CO2 35.8 MEQ/L (24.0-28.0)
[2018-04-06 19:40] LABS: BASO % 0.3 % (0.0-1.0); EOS # 0.8 10^3/uL (0.0-0.50); EOS % 8.1 % (0.0-3.0); HEMATOCRIT 34.9 % (42.0-52.0); HEMOGLOBIN 11.2 g/dl (13.5-17.5); IMMATURE GRANULOCYTE % 3.2 % (0-3.0); LYMPH # 0.9 10^3/uL (1.5-4.5); LYMPH % 8.9 % (24.0-44.0); MEAN CORPUSCULAR HEMOGLOBIN 32.3 pg (27.0-33.0); MEAN CORPUSCULAR HGB CONC 32.1 g/dl (32.0-36.5); MEAN CORPUSCULAR VOLUME 100.6 fl (80.0-96.0); MONO # 1.5 10^3/uL (0.0-0.8); MONO % 14.8 % (0.0-5.0); NEUTROPHILS # 6.5 10^3/uL (1.8-7.7); NEUTROPHILS % 64.7 % (36.0-66.0); PLATELET COUNT, AUTOMATED 115 10^3/uL (150-450); RED BLOOD COUNT 3.47 10^6/uL (4.30-6.10); WHITE BLOOD COUNT 10.1 10^3/uL (4.0-10.0)
[2018-04-06 20:03] LABS: ANION GAP 11 MEQ/L (8-16); BLOOD UREA NITROGEN 15 MG/DL (7-18); CALCIUM LEVEL 9.1 MG/DL (8.8-10.2); CARBON DIOXIDE LEVEL 32 MEQ/L (21-32); CHLORIDE LEVEL 98 MEQ/L (98-107); CK-MB VALUE MASS 2.5 NG/ML (<3.6); CPK CREATINE PHOSPHOKINASE 60 U/L (39-308); CREATININE FOR GFR 4.53 MG/DL (0.70-1.30); GLOMERULAR FILTRATION RATE 13.2 (>35); GLUCOSE, FASTING 102 MG/DL (70-100); MB/CK RELATIVE INDEX 4.16 (< OR =4); POTASSIUM SERUM 3.9 MEQ/L (3.5-5.1); SODIUM LEVEL 141 MEQ/L (136-145); TROPONIN I 0.04 NG/ML (< 0.10)
[2018-04-06] MEDS: IPRATROPIUM 0.5MG/ALBUTEROL 2.5MG INH SOL UD 3ML (DUONEB)(J7620) NEB (20:06)
== END 2018-04-06 22:28 | disposition home or self-care (01) ==
LOC: M ED 18:31
DX: R06.02 Shortness of breath (principal); R00.0 Tachycardia, unspecified; R09.02 Hypoxemia; M54.9 Dorsalgia, unspecified; G89.29 Other chronic pain; Z99.2 Dependence on renal dialysis; Z79.899 Other long term (current) drug therapy; Z79.82 Long term (current) use of aspirin; R82.90 Unspecified abnormal findings in urine; N28.89 Other specified disorders of kidney and ureter
CPT/HCPCS: 71045

== ENCOUNTER → 2018-04-06 | Outpatient (REF) | payer MEDICARE, MEDICAID ==
[2018-04-06 22:14] LABS: APPEARANCE, URINE TURBID (CLEAR); BACTERIA, URINE AUTO 3+ (NEGATIVE); BILIRUBIN, URINE AUTO NEGATIVE (NEGATIVE); BLOOD, URINE BLOOD 1+ (NEGATIVE); COLOR, URINE YELLOW (YELLOW); GLUCOSE, URINE (UA) AUTO NEGATIVE (NEGATIVE); KETONE, URINE AUTO NEGATIVE (NEGATIVE); LEUKOCYTE ESTERASE, URINE AUTO 1+ (NEGATIVE); MUCUS, URINE SMALL (NEGATIVE); NITRITE, URINE AUTO NEGATIVE (NEGATIVE); PROTEIN, URINE AUTO 1+ mg/dL (NEGATIVE); RBC, URINE AUTO 92 /HPF (0-3); SPECIFIC GRAVITY URINE AUTO 1.013 (1.002-1.035); SQUAMOUS EPITHELIAL CELL UR AU 0 /HPF (0-6); UROBILINOGEN, URINE AUTO 0.2 mg/dL (0.0-2.0); WBC, URINE AUTO TNTC /HPF (0-3)
== END ==
LOC: M SMT 17:23
DX: R82.90 Unspecified abnormal findings in urine (principal)

== ENCOUNTER 2018-04-07 10:19 | Observation (INO) | payer MEDICARE, MEDICAID ==
[2018-04-07 10:45] LABS: ABG BASE EXCESS 1.6 (-2.0-2.0); ABG HCO3 25.5 MEQ/L (22.0-26.0); ABG PARTIAL PRESSURE CO2 37.4 mmHg (35.0-45.0); ABG PARTIAL PRESSURE O2 137.7 mmHg (75.0-100.0); ABG STANDARD HCO3 25.9 MEQ/L (22.0-26.0); ABG TOTAL CO2 26.7 MEQ/L (23.0-31.0); ABG pH (ARTERIAL) 7.452 UNITS (7.350-7.450)
[2018-04-07 10:55] LABS: BEDSIDE GLUCOSE 112 MG/DL (83-110)
[2018-04-07 11:07] LABS: BASO % 0.4 % (0.0-1.0); EOS # 0.8 10^3/uL (0.0-0.50); EOS % 10.5 % (0.0-3.0); HEMATOCRIT 29.4 % (42.0-52.0); HEMOGLOBIN 9.3 g/dl (13.5-17.5); IMMATURE GRANULOCYTE % 1.7 % (0-3.0); LYMPH # 1.1 10^3/uL (1.5-4.5); LYMPH % 15.4 % (24.0-44.0); MEAN CORPUSCULAR HEMOGLOBIN 32.6 pg (27.0-33.0); MEAN CORPUSCULAR HGB CONC 31.6 g/dl (32.0-36.5); MEAN CORPUSCULAR VOLUME 103.2 fl (80.0-96.0); MONO % 13.3 % (0.0-5.0); NEUTROPHILS # 4.3 10^3/uL (1.8-7.7); NEUTROPHILS % 58.7 % (36.0-66.0); PLATELET COUNT, AUTOMATED 102 10^3/uL (150-450); RED BLOOD COUNT 2.85 10^6/uL (4.30-6.10); WHITE BLOOD COUNT 7.2 10^3/uL (4.0-10.0)
[2018-04-07 11:30] LABS: AMMONIA 15 uMOL/L (<32)
[2018-04-07 11:35] LABS: LACTIC ACID SEPSIS PROTOCOL 1.9 MMOL/L (0.4-2.0)
[2018-04-07 12:16] LABS: ALBUMIN 2.8 GM/DL (3.2-5.2); ALBUMIN/GLOBULIN RATIO 0.78 (1.00-1.93); ALKALINE PHOSPHATASE 86 U/L (45-117); ALT/SGPT 14 U/L (12-78); ANION GAP 10 MEQ/L (8-16); AST/SGOT 13 U/L (7-37); BILIRUBIN,DIRECT 0.1 MG/DL (0.0-0.2); BILIRUBIN,TOTAL 0.4 MG/DL (0.2-1.0); BLOOD UREA NITROGEN 26 MG/DL (7-18); CALCIUM LEVEL 8.4 MG/DL (8.8-10.2); CARBON DIOXIDE LEVEL 29 MEQ/L (21-32); CHLORIDE LEVEL 103 MEQ/L (98-107); CPK CREATINE PHOSPHOKINASE 42 U/L (39-308); CREATININE FOR GFR 6.08 MG/DL (0.70-1.30); GLOMERULAR FILTRATION RATE 9.4 (>35); GLUCOSE, FASTING 98 MG/DL (70-100); POTASSIUM SERUM 4.4 MEQ/L (3.5-5.1); SODIUM LEVEL 142 MEQ/L (136-145); TOTAL PROTEIN 6.4 GM/DL (6.4-8.2); TROPONIN I 0.05 NG/ML (< 0.10)
[2018-04-07 12:21] LABS: CK-MB VALUE MASS 1.6 NG/ML (<3.6)
[2018-04-07 13:56] LABS: BEDSIDE GLUCOSE 82 MG/DL (83-110)
[2018-04-07] MEDS ORDERED: ONDANSETRON 4 MG TAB (S0181) PO (16:15)
[2018-04-07] MEDS ORDERED: BISACODYL 10 MG SUPP PR (16:15)
[2018-04-07] MEDS ORDERED: ACETAMINOPHEN TAB 650MG DOSE (2X325MG) PO (16:15)
[2018-04-07] MEDS ORDERED: ACETAMINOPHEN 500 MG TAB PO (16:15)
[2018-04-07] MEDS: (RENVELA) SEVELAMER **CARBONate** 800 MG TAB PO (19:32)
[2018-04-07] MEDS: LATANOPROST 0.005% OPHTH SOLN 2.5 ML OU (20:04)
[2018-04-07] MEDS: CARVedilol 6.25 MG TAB PO (20:04)
[2018-04-08] MEDS: LEVOTHYROXINE 25MCG TABLET (0.025MG) PO (05:50)
[2018-04-08 07:29] LABS: HEMATOCRIT 31.7 % (42.0-52.0); HEMOGLOBIN 10.4 g/dl (13.5-17.5); MEAN CORPUSCULAR HEMOGLOBIN 31.9 pg (27.0-33.0); MEAN CORPUSCULAR HGB CONC 32.8 g/dl (32.0-36.5); MEAN CORPUSCULAR VOLUME 97.2 fl (80.0-96.0); PLATELET COUNT, AUTOMATED 125 10^3/uL (150-450); RED BLOOD COUNT 3.26 10^6/uL (4.30-6.10); RED CELL DISTRIBUTION WIDTH 16.4 % (11.5-14.5); WHITE BLOOD COUNT 8.8 10^3/uL (4.0-10.0)
[2018-04-08 07:52] LABS: ALBUMIN 2.9 GM/DL (3.2-5.2); ALBUMIN/GLOBULIN RATIO 0.88 (1.00-1.93); ALKALINE PHOSPHATASE 94 U/L (45-117); ALT/SGPT 13 U/L (12-78); ANION GAP 12 MEQ/L (8-16); AST/SGOT 13 U/L (7-37); BILIRUBIN,TOTAL 0.5 MG/DL (0.2-1.0); BLOOD UREA NITROGEN 37 MG/DL (7-18); CALCIUM LEVEL 8.5 MG/DL (8.8-10.2); CARBON DIOXIDE LEVEL 27 MEQ/L (21-32); CHLORIDE LEVEL 103 MEQ/L (98-107); GLOMERULAR FILTRATION RATE 7.4 (>35); GLUCOSE, FASTING 88 MG/DL (70-100); POTASSIUM SERUM 4.6 MEQ/L (3.5-5.1); SODIUM LEVEL 142 MEQ/L (136-145); TOTAL PROTEIN 6.2 GM/DL (6.4-8.2)
[2018-04-08] MEDS: FOLIC ACID 1 MG TAB PO (08:21)
[2018-04-08] MEDS: CARVedilol 6.25 MG TAB PO ×2 (08:21→20:21)
[2018-04-08] MEDS: ASPIRIN 81 MG ENTERIC TAB PO (08:21)
[2018-04-08] MEDS: (RENVELA) SEVELAMER **CARBONate** 800 MG TAB PO ×3 (08:22→18:00)
[2018-04-08] MEDS: MEGESTROL SUSP 400 MG/10 ML UDC PO (08:35)
[2018-04-08] MEDS: IPRATROPIUM 0.5MG/ALBUTEROL 2.5MG INH SOL UD 3ML (DUONEB)(J7620) NEB (08:41)
[2018-04-08] MEDS: HEPARIN 1,000 UNITS/ML 10ML VIAL (FOR RADIOLOGY& DIALYSIS ONLY) IV (10:45)
[2018-04-08] MEDS: LIDOCAINE 1% SDV 5 ML VIAL SQ (10:45)
[2018-04-08] MEDS: HEPARIN SOD (PORCINE) 5000 UNITS/ML VIAL SQ (22:56)
[2018-04-08] MEDS: LATANOPROST 0.005% OPHTH SOLN 2.5 ML OU (22:56)
[2018-04-09] MEDS: LEVOTHYROXINE 25MCG TABLET (0.025MG) PO (05:10)
[2018-04-09] MEDS: HEPARIN SOD (PORCINE) 5000 UNITS/ML VIAL SQ (05:11)
[2018-04-09 06:53] LABS: HEMATOCRIT 31.1 % (42.0-52.0); HEMOGLOBIN 10.2 g/dl (13.5-17.5); MEAN CORPUSCULAR HGB CONC 32.8 g/dl (32.0-36.5); MEAN CORPUSCULAR VOLUME 97.5 fl (80.0-96.0); PLATELET COUNT, AUTOMATED 111 10^3/uL (150-450); RED BLOOD COUNT 3.19 10^6/uL (4.30-6.10); RED CELL DISTRIBUTION WIDTH 16.3 % (11.5-14.5); WHITE BLOOD COUNT 7.1 10^3/uL (4.0-10.0)
[2018-04-09 07:14] LABS: ANION GAP 9 MEQ/L (8-16); BLOOD UREA NITROGEN 23 MG/DL (7-18); CALCIUM LEVEL 8.9 MG/DL (8.8-10.2); CARBON DIOXIDE LEVEL 32 MEQ/L (21-32); CHLORIDE LEVEL 98 MEQ/L (98-107); GLOMERULAR FILTRATION RATE 10.8 (>35); GLUCOSE, FASTING 87 MG/DL (70-100); MAGNESIUM LEVEL 1.9 MG/DL (1.8-2.4); POTASSIUM SERUM 4.3 MEQ/L (3.5-5.1); SODIUM LEVEL 139 MEQ/L (136-145)
[2018-04-09] MEDS: MEGESTROL SUSP 400 MG/10 ML UDC PO (08:17)
[2018-04-09] MEDS: (RENVELA) SEVELAMER **CARBONate** 800 MG TAB PO ×2 (08:18→12:59)
[2018-04-09] MEDS: ASPIRIN 81 MG ENTERIC TAB PO (08:18)
[2018-04-09] MEDS: FOLIC ACID 1 MG TAB PO (08:18)
[2018-04-09] MEDS: CARVedilol 12.5 MG TAB PO (08:19)
[2018-04-09] MEDS: CARBAMIDE PEROXIDE 6.5% OTIC SOLN 15ML AU (09:00)
== END 2018-04-09 15:10 | disposition home or self-care (01) ==
LOC: M ED 10:19 → M ED INP 16:15 → M MS5PR 21:00
DX: R41.82 Altered mental status, unspecified (principal); I95.9 Hypotension, unspecified; N18.6 End stage renal disease; Z79.899 Other long term (current) drug therapy; I50.30 Unspecified diastolic (congestive) heart failure; J44.9 Chronic obstructive pulmonary disease, unspecified; Z86.73 Personal history of transient ischemic attack (TIA), and cerebral infarction without residual deficits; Z79.82 Long term (current) use of aspirin; E03.9 Hypothyroidism, unspecified; Z87.891 Personal history of nicotine dependence
CPT/HCPCS: 71045

== ENCOUNTER 2018-04-12 10:09 | Inpatient (IN) | payer MEDICARE, MEDICAID ==
[2018-04-12 14:14] LABS: BASO % 0.4 % (0.0-1.0); EOS # 0.7 10^3/uL (0.0-0.50); EOS % 10.8 % (0.0-3.0); HEMATOCRIT 27.9 % (42.0-52.0); HEMOGLOBIN 9.1 g/dl (13.5-17.5); IMMATURE GRANULOCYTE % 2.1 % (0-3.0); LYMPH # 0.9 10^3/uL (1.5-4.5); LYMPH % 13.5 % (24.0-44.0); MEAN CORPUSCULAR HEMOGLOBIN 32.4 pg (27.0-33.0); MEAN CORPUSCULAR HGB CONC 32.6 g/dl (32.0-36.5); MEAN CORPUSCULAR VOLUME 99.3 fl (80.0-96.0); MONO # 1.1 10^3/uL (0.0-0.8); MONO % 16.6 % (0.0-5.0); NEUTROPHILS # 3.8 10^3/uL (1.8-7.7); NEUTROPHILS % 56.6 % (36.0-66.0); PLATELET COUNT, AUTOMATED 179 10^3/uL (150-450); RED BLOOD COUNT 2.81 10^6/uL (4.30-6.10); RED CELL DISTRIBUTION WIDTH 15.9 % (11.5-14.5); WHITE BLOOD COUNT 6.7 10^3/uL (4.0-10.0)
[2018-04-12 14:24] LABS: LACTIC ACID SEPSIS PROTOCOL 1.5 MMOL/L (0.4-2.0)
[2018-04-12 14:25] LABS: ANION GAP 9 MEQ/L (8-16); BLOOD UREA NITROGEN 32 MG/DL (7-18); CALCIUM LEVEL 8.8 MG/DL (8.8-10.2); CARBON DIOXIDE LEVEL 30 MEQ/L (21-32); CHLORIDE LEVEL 102 MEQ/L (98-107); CPK CREATINE PHOSPHOKINASE 52 U/L (39-308); CREATININE FOR GFR 7.12 MG/DL (0.70-1.30); GLOMERULAR FILTRATION RATE 7.8 (>35); GLUCOSE, FASTING 86 MG/DL (70-100); POTASSIUM SERUM 4.4 MEQ/L (3.5-5.1); SODIUM LEVEL 141 MEQ/L (136-145); TROPONIN I 0.03 NG/ML (< 0.10)
[2018-04-12 14:26] LABS: CK-MB VALUE MASS 1.2 NG/ML (<3.6)
[2018-04-12] MEDS ORDERED: ACETAMINOPHEN TAB 650MG DOSE (2X325MG) PO (19:00)
[2018-04-12] MEDS ORDERED: ONDANSETRON 4 MG TAB (S0181) PO (19:00)
[2018-04-12] MEDS ORDERED: ONDANSETRON 4MG/2ML VIAL (J2405) IV (19:00)
[2018-04-12] MEDS: cefTRIAXone SOD 1 GM in D5W MINI-BAG PLUS 50 ML IV (19:55)
[2018-04-12] MEDS: CARVedilol 12.5 MG TAB PO (19:56)
[2018-04-12] MEDS: IPRATROPIUM 0.5MG/ALBUTEROL 2.5MG INH SOL UD 3ML (DUONEB)(J7620) INH (20:06)
[2018-04-13] MEDS: HEPARIN SOD (PORCINE) 5000 UNITS/ML VIAL SC ×3 (00:25→12:59)
[2018-04-13] MEDS: LATANOPROST 0.005% OPHTH SOLN 2.5 ML OU ×2 (05:00→21:26)
[2018-04-13] MEDS: LEVOTHYROXINE 25MCG TABLET (0.025MG) PO (05:01)
[2018-04-13] MEDS: IPRATROPIUM 0.5MG/ALBUTEROL 2.5MG INH SOL UD 3ML (DUONEB)(J7620) INH ×2 (05:46→15:34)
[2018-04-13] MEDS: (RENVELA) SEVELAMER **CARBONate** 800 MG TAB PO ×3 (06:28→17:22)
[2018-04-13] MEDS: CARVedilol 12.5 MG TAB PO ×2 (06:29→21:28)
[2018-04-13] MEDS: FOLIC ACID 1 MG TAB PO (07:01)
[2018-04-13] MEDS: ASPIRIN 81 MG ENTERIC TAB PO (07:01)
[2018-04-13] MEDS: MEGESTROL SUSP 400 MG/10 ML UDC PO (07:01)
[2018-04-13 07:26] LABS: BASO % 0.2 % (0.0-1.0); EOS # 0.9 10^3/uL (0.0-0.50); EOS % 9.5 % (0.0-3.0); HEMATOCRIT 29.3 % (42.0-52.0); HEMOGLOBIN 9.6 g/dl (13.5-17.5); LYMPH # 0.9 10^3/uL (1.5-4.5); LYMPH % 9.1 % (24.0-44.0); MEAN CORPUSCULAR HGB CONC 32.8 g/dl (32.0-36.5); MEAN CORPUSCULAR VOLUME 97.7 fl (80.0-96.0); MONO # 1.2 10^3/uL (0.0-0.8); NEUTROPHILS # 6.1 10^3/uL (1.8-7.7); NEUTROPHILS % 66.2 % (36.0-66.0); PLATELET COUNT, AUTOMATED 227 10^3/uL (150-450); RED CELL DISTRIBUTION WIDTH 16.1 % (11.5-14.5); WHITE BLOOD COUNT 9.3 10^3/uL (4.0-10.0)
[2018-04-13 07:41] LABS: ANION GAP 11 MEQ/L (8-16); BLOOD UREA NITROGEN 37 MG/DL (7-18); CALCIUM LEVEL 8.6 MG/DL (8.8-10.2); CARBON DIOXIDE LEVEL 27 MEQ/L (21-32); CHLORIDE LEVEL 100 MEQ/L (98-107); GLOMERULAR FILTRATION RATE 6.5 (>35); GLUCOSE, FASTING 94 MG/DL (70-100); MAGNESIUM LEVEL 1.9 MG/DL (1.8-2.4); POTASSIUM SERUM 4.5 MEQ/L (3.5-5.1); SODIUM LEVEL 138 MEQ/L (136-145)
[2018-04-13 07:52] LABS: CREATININE FOR GFR 8.39 MG/DL (0.70-1.30)
[2018-04-13] MEDS: HEPARIN 1,000 UNITS/ML 10ML VIAL (FOR RADIOLOGY& DIALYSIS ONLY) IV (10:30)
[2018-04-13] MEDS ORDERED: DARBEPOETIN 100 MCG/0.5 ML *DIALYSIS* SYRINGE (J0882) IV (18:15)
[2018-04-13] MEDS: cefTRIAXone SOD 1 GM in D5W MINI-BAG PLUS 50 ML IV (21:25)
[2018-04-14] MEDS: LEVOTHYROXINE 25MCG TABLET (0.025MG) PO (05:31)
[2018-04-14] MEDS: HEPARIN SOD (PORCINE) 5000 UNITS/ML VIAL SC ×2 (05:32→17:22)
[2018-04-14 06:55] LABS: BASO % 0.1 % (0.0-1.0); EOS # 0.6 10^3/uL (0.0-0.50); HEMATOCRIT 26.9 % (42.0-52.0); HEMOGLOBIN 8.6 g/dl (13.5-17.5); IMMATURE GRANULOCYTE % 1.1 % (0-3.0); MEAN CORPUSCULAR HEMOGLOBIN 31.7 pg (27.0-33.0); MEAN CORPUSCULAR VOLUME 99.3 fl (80.0-96.0); MONO # 1.5 10^3/uL (0.0-0.8); MONO % 19.2 % (0.0-5.0); NEUTROPHILS # 4.7 10^3/uL (1.8-7.7); NEUTROPHILS % 58.6 % (36.0-66.0); PLATELET COUNT, AUTOMATED 185 10^3/uL (150-450); RED BLOOD COUNT 2.71 10^6/uL (4.30-6.10); RED CELL DISTRIBUTION WIDTH 16.3 % (11.5-14.5)
[2018-04-14 07:10] LABS: ANION GAP 8 MEQ/L (8-16); BLOOD UREA NITROGEN 18 MG/DL (7-18); CALCIUM LEVEL 8.7 MG/DL (8.8-10.2); CARBON DIOXIDE LEVEL 30 MEQ/L (21-32); CHLORIDE LEVEL 100 MEQ/L (98-107); CREATININE FOR GFR 5.36 MG/DL (0.70-1.30); GLOMERULAR FILTRATION RATE 10.9 (>35); GLUCOSE, FASTING 86 MG/DL (70-100); MAGNESIUM LEVEL 2.1 MG/DL (1.8-2.4); POTASSIUM SERUM 3.8 MEQ/L (3.5-5.1); SODIUM LEVEL 138 MEQ/L (136-145)
[2018-04-14] MEDS: FOLIC ACID 1 MG TAB PO (09:20)
[2018-04-14] MEDS: MEGESTROL SUSP 400 MG/10 ML UDC PO (09:20)
[2018-04-14] MEDS: ASPIRIN 81 MG ENTERIC TAB PO (09:20)
[2018-04-14] MEDS: CARVedilol 12.5 MG TAB PO ×2 (09:21→21:31)
[2018-04-14] MEDS: CALCIUM ACETATE 667 MG GELCAP PO ×3 (09:21→17:22)
[2018-04-14] MEDS: CEFDINIR 300 MG CAP (OMNICEF) PO (16:26)
[2018-04-14 17:25] LABS: BEDSIDE GLUCOSE 169 MG/DL (83-110)
[2018-04-14] MEDS: LATANOPROST 0.005% OPHTH SOLN 2.5 ML OU (21:31)
[2018-04-15] MEDS: HEPARIN SOD (PORCINE) 5000 UNITS/ML VIAL SC (05:48)
[2018-04-15] MEDS: LEVOTHYROXINE 25MCG TABLET (0.025MG) PO (05:48)
[2018-04-15 07:00] LABS: BASO % 0.3 % (0.0-1.0); EOS # 0.7 10^3/uL (0.0-0.50); EOS % 11.6 % (0.0-3.0); HEMATOCRIT 26.4 % (42.0-52.0); HEMOGLOBIN 8.4 g/dl (13.5-17.5); IMMATURE GRANULOCYTE % 1.5 % (0-3.0); LYMPH # 0.9 10^3/uL (1.5-4.5); LYMPH % 15.4 % (24.0-44.0); MEAN CORPUSCULAR HEMOGLOBIN 31.2 pg (27.0-33.0); MEAN CORPUSCULAR HGB CONC 31.8 g/dl (32.0-36.5); MEAN CORPUSCULAR VOLUME 98.1 fl (80.0-96.0); MONO # 1.5 10^3/uL (0.0-0.8); MONO % 24.1 % (0.0-5.0); NEUTROPHILS # 2.9 10^3/uL (1.8-7.7); NEUTROPHILS % 47.1 % (36.0-66.0); PLATELET COUNT, AUTOMATED 192 10^3/uL (150-450); RED BLOOD COUNT 2.69 10^6/uL (4.30-6.10); RED CELL DISTRIBUTION WIDTH 16.2 % (11.5-14.5); WHITE BLOOD COUNT 6.1 10^3/uL (4.0-10.0)
[2018-04-15 07:15] LABS: ANION GAP 8 MEQ/L (8-16); BLOOD UREA NITROGEN 14 MG/DL (7-18); CALCIUM LEVEL 9.3 MG/DL (8.8-10.2); CARBON DIOXIDE LEVEL 31 MEQ/L (21-32); CHLORIDE LEVEL 101 MEQ/L (98-107); CREATININE FOR GFR 4.28 MG/DL (0.70-1.30); GLOMERULAR FILTRATION RATE 14.1 (>35); GLUCOSE, FASTING 86 MG/DL (70-100); MAGNESIUM LEVEL 2.1 MG/DL (1.8-2.4); POTASSIUM SERUM 3.8 MEQ/L (3.5-5.1); SODIUM LEVEL 140 MEQ/L (136-145)
[2018-04-15] MEDS: CARVedilol 12.5 MG TAB PO (08:49)
[2018-04-15] MEDS: MEGESTROL SUSP 400 MG/10 ML UDC PO (08:49)
[2018-04-15] MEDS: CALCIUM ACETATE 667 MG GELCAP PO ×2 (08:49→13:01)
[2018-04-15] MEDS: FOLIC ACID 1 MG TAB PO (08:50)
[2018-04-15] MEDS: ASPIRIN 81 MG ENTERIC TAB PO (08:50)
== END 2018-04-15 13:37 | disposition home or self-care (01) | DRG 698 ==
LOC: M MS5PR 04-13 00:18 → M ED 10:09 → M ED INP 18:59
PROC: 5A1D70Z Performance of Urinary Filtration, Intermittent, Less than 6 Hours Per Day (ICD-10-PCS; principal; 2018-04-13)
DX: T83.518A Infection and inflammatory reaction due to other urinary catheter, initial encounter (principal); N18.6 End stage renal disease; G93.41 Metabolic encephalopathy; I50.32 Chronic diastolic (congestive) heart failure; I13.2 Hypertensive heart and chronic kidney disease with heart failure and with stage 5 chronic kidney disease, or end stage renal disease; H91.93 Unspecified hearing loss, bilateral; D63.1 Anemia in chronic kidney disease; R33.9 Retention of urine, unspecified; J44.9 Chronic obstructive pulmonary disease, unspecified; T37.0X5A Adverse effect of sulfonamides, initial encounter; E03.9 Hypothyroidism, unspecified; N25.0 Renal osteodystrophy; Z99.2 Dependence on renal dialysis; Z86.73 Personal history of transient ischemic attack (TIA), and cerebral infarction without residual deficits; Z85.47 Personal history of malignant neoplasm of testis; Z87.891 Personal history of nicotine dependence; Z79.82 Long term (current) use of aspirin; Z79.899 Other long term (current) drug therapy; Z88.1 Allergy status to other antibiotic agents; Y84.6 Urinary catheterization as the cause of abnormal reaction of the patient, or of later complication, without mention of misadventure at the time of the procedure

== ENCOUNTER 2018-04-24 18:02 | Inpatient (IN) | payer MEDICARE ==
[2018-04-24 19:13] LABS: BASO % 0.4 % (0.0-1.0); EOS % 8.9 % (0.0-3.0); HEMATOCRIT 24.7 % (42.0-52.0); HEMOGLOBIN 7.9 g/dl (13.5-17.5); IMMATURE GRANULOCYTE % 1.5 % (0-3.0); LYMPH # 1.1 10^3/uL (1.5-4.5); LYMPH % 10.4 % (24.0-44.0); MEAN CORPUSCULAR HEMOGLOBIN 32.5 pg (27.0-33.0); MEAN CORPUSCULAR VOLUME 101.6 fl (80.0-96.0); MONO # 1.5 10^3/uL (0.0-0.8); MONO % 13.8 % (0.0-5.0); NEUTROPHILS # 7.1 10^3/uL (1.8-7.7); PLATELET COUNT, AUTOMATED 121 10^3/uL (150-450); RED BLOOD COUNT 2.43 10^6/uL (4.30-6.10); WHITE BLOOD COUNT 10.9 10^3/uL (4.0-10.0)
[2018-04-24 19:26] LABS: ANION GAP 7 MEQ/L (8-16); BLOOD UREA NITROGEN 15 MG/DL (7-18); CARBON DIOXIDE LEVEL 32 MEQ/L (21-32); CHLORIDE LEVEL 105 MEQ/L (98-107); CK-MB VALUE MASS 1.8 NG/ML (<3.6); CPK CREATINE PHOSPHOKINASE 31 U/L (39-308); CREATININE FOR GFR 3.55 MG/DL (0.70-1.30); GLOMERULAR FILTRATION RATE 17.5 (>35); GLUCOSE, FASTING 104 MG/DL (70-100); POTASSIUM SERUM 3.3 MEQ/L (3.5-5.1); SODIUM LEVEL 144 MEQ/L (136-145); TROPONIN I 0.05 NG/ML (< 0.10)
[2018-04-24 22:09] LABS: AMORPHOUS SEDIMENT RFX SMALL (NEGATIVE); KETONE, URINE AUTO RFX NEGATIVE (NEGATIVE); MUCUS, URINE RFX SMALL (NEGATIVE); NITRITE, URINE AUTO RFX NEGATIVE (NEGATIVE); RBC, URINE AUTO RFX 6 /HPF (0-3); SPECIFIC GRAVITY UR AUTO RFX 1.011 (1.002-1.035); SQUAM EPITHELIAL CELL UR AURFX 0 /HPF (0-6); WBC, URINE AUTO RFX 4 /HPF (0-3)
[2018-04-24 22:11] LABS: LEUKOCYTE ESTERASE UR AUTO RFX TRACE (NEGATIVE)
[2018-04-24 22:44] LABS: FERRITIN 1135 NG/ML (26-388); IRON (FE) 106 UG/DL (65-175)
[2018-04-24] MEDS ORDERED: ACETAMINOPHEN 500 MG TAB PO ×2 (23:00)
[2018-04-24] MEDS: POTASSIUM CHLORIDE 10 MEQ SR TABLET PO ×2 (23:55)
[2018-04-25] MEDS ORDERED: CARVedilol 12.5 MG TAB As Ordered ×2 (05:04)
[2018-04-25] MEDS: HEPARIN SOD (PORCINE) 5000 UNITS/ML VIAL SC ×6 (05:07→20:31)
[2018-04-25] MEDS: LEVOTHYROXINE 25MCG TABLET (0.025MG) PO ×2 (05:07)
[2018-04-25] MEDS: CARVedilol 12.5 MG TAB PO ×4 (05:08→20:30)
[2018-04-25 07:09] LABS: MEAN CORPUSCULAR HEMOGLOBIN 32.1 pg (27.0-33.0); MEAN CORPUSCULAR VOLUME 100.4 fl (80.0-96.0); PLATELET COUNT, AUTOMATED 124 10^3/uL (150-450); RED BLOOD COUNT 2.49 10^6/uL (4.30-6.10); RED CELL DISTRIBUTION WIDTH 18.9 % (11.5-14.5); WHITE BLOOD COUNT 8.3 10^3/uL (4.0-10.0)
[2018-04-25 07:22] LABS: POS COUNT POS FLAG
[2018-04-25 07:23] LABS: ANION GAP 11 MEQ/L (8-16); BLOOD UREA NITROGEN 22 MG/DL (7-18); CALCIUM LEVEL 8.2 MG/DL (8.8-10.2); CARBON DIOXIDE LEVEL 29 MEQ/L (21-32); CHLORIDE LEVEL 106 MEQ/L (98-107); CREATININE FOR GFR 4.64 MG/DL (0.70-1.30); GLOMERULAR FILTRATION RATE 12.9 (>35); GLUCOSE, FASTING 71 MG/DL (70-100); POTASSIUM SERUM 3.7 MEQ/L (3.5-5.1); SODIUM LEVEL 146 MEQ/L (136-145)
[2018-04-25] MEDS: (RENVELA) SEVELAMER **CARBONate** 800 MG TAB PO ×8 (07:39→17:16)
[2018-04-25] MEDS: ASPIRIN 81 MG ENTERIC TAB PO ×2 (07:39)
[2018-04-25] MEDS: FOLIC ACID 1 MG TAB PO ×2 (07:39)
[2018-04-25] MEDS: MEGESTROL SUSP 400 MG/10 ML UDC PO ×2 (07:39)
[2018-04-25 10:04] LABS: FOLATE > 24.0 NG/ML (>5.4)
[2018-04-25 10:04] LABS: VITAMIN B12 LEVEL 299 PG/ML (247-911)
[2018-04-25] MEDS: IPRATROPIUM 0.5MG/ALBUTEROL 2.5MG INH SOL UD 3ML (DUONEB)(J7620) INH ×2 (11:33)
[2018-04-25] MEDS: LATANOPROST 0.005% OPHTH SOLN 2.5 ML OU ×2 (20:31)
[2018-04-26] MEDS: IPRATROPIUM 0.5MG/ALBUTEROL 2.5MG INH SOL UD 3ML (DUONEB)(J7620) INH ×4 (00:56→13:34)
[2018-04-26] MEDS: MEGESTROL SUSP 400 MG/10 ML UDC PO ×2 (05:28)
[2018-04-26] MEDS: LEVOTHYROXINE 25MCG TABLET (0.025MG) PO ×2 (05:28)
[2018-04-26] MEDS: HEPARIN SOD (PORCINE) 5000 UNITS/ML VIAL SC ×6 (05:29→21:08)
[2018-04-26] MEDS: ASPIRIN 81 MG ENTERIC TAB PO ×2 (05:29)
[2018-04-26] MEDS: FOLIC ACID 1 MG TAB PO ×2 (05:29)
[2018-04-26] MEDS: CARVedilol 12.5 MG TAB PO ×4 (05:30→21:08)
[2018-04-26 05:58] LABS: HEMATOCRIT 24.5 % (42.0-52.0); HEMOGLOBIN 7.8 g/dl (13.5-17.5); MEAN CORPUSCULAR HEMOGLOBIN 32.8 pg (27.0-33.0); MEAN CORPUSCULAR HGB CONC 31.8 g/dl (32.0-36.5); MEAN CORPUSCULAR VOLUME 102.9 fl (80.0-96.0); PLATELET COUNT, AUTOMATED 129 10^3/uL (150-450); RED BLOOD COUNT 2.38 10^6/uL (4.30-6.10); RED CELL DISTRIBUTION WIDTH 18.5 % (11.5-14.5); WHITE BLOOD COUNT 8.5 10^3/uL (4.0-10.0)
[2018-04-26 06:08] LABS: ANION GAP 12 MEQ/L (8-16); BLOOD UREA NITROGEN 31 MG/DL (7-18); CALCIUM LEVEL 8.4 MG/DL (8.8-10.2); CARBON DIOXIDE LEVEL 26 MEQ/L (21-32); CHLORIDE LEVEL 102 MEQ/L (98-107); CREATININE FOR GFR 6.16 MG/DL (0.70-1.30); GLOMERULAR FILTRATION RATE 9.3 (>35); GLUCOSE, FASTING 82 MG/DL (70-100); POTASSIUM SERUM 4.3 MEQ/L (3.5-5.1); SODIUM LEVEL 140 MEQ/L (136-145)
[2018-04-26] MEDS: (RENVELA) SEVELAMER **CARBONate** 800 MG TAB PO ×8 (08:00→17:30)
[2018-04-26 08:07] LABS: TRANSFERRIN 175 mg/dL (200-370)
[2018-04-26] MEDS ORDERED: LISINOPRIL 10 MG TAB PO ×2 (09:00)
[2018-04-26] MEDS: HEPARIN 1,000 UNITS/ML 10ML VIAL (FOR RADIOLOGY& DIALYSIS ONLY) IV ×2 (11:15)
[2018-04-26] MEDS ORDERED: tiZANidine 4 MG TAB PO ×2 (16:00)
[2018-04-26 16:22] LABS: IMMEDIATE SPIN CROSSMATCH 1 2
[2018-04-26] MEDS: LATANOPROST 0.005% OPHTH SOLN 2.5 ML OU ×2 (21:10)
[2018-04-27] MEDS: IPRATROPIUM 0.5MG/ALBUTEROL 2.5MG INH SOL UD 3ML (DUONEB)(J7620) INH ×2 (04:10)
[2018-04-27] MEDS: LEVOTHYROXINE 25MCG TABLET (0.025MG) PO ×2 (05:06)
[2018-04-27] MEDS: HEPARIN SOD (PORCINE) 5000 UNITS/ML VIAL SC ×2 (05:06)
[2018-04-27 06:39] LABS: HEMATOCRIT 27.3 % (42.0-52.0); MEAN CORPUSCULAR HEMOGLOBIN 32.6 pg (27.0-33.0); MEAN CORPUSCULAR VOLUME 98.9 fl (80.0-96.0); PLATELET COUNT, AUTOMATED 114 10^3/uL (150-450); RED BLOOD COUNT 2.76 10^6/uL (4.30-6.10); WHITE BLOOD COUNT 9.4 10^3/uL (4.0-10.0)
[2018-04-27 07:00] LABS: ANION GAP 11 MEQ/L (8-16); BLOOD UREA NITROGEN 21 MG/DL (7-18); CALCIUM LEVEL 8.6 MG/DL (8.8-10.2); CARBON DIOXIDE LEVEL 27 MEQ/L (21-32); CHLORIDE LEVEL 101 MEQ/L (98-107); CREATININE FOR GFR 3.98 MG/DL (0.70-1.30); GLOMERULAR FILTRATION RATE 15.4 (>35); GLUCOSE, FASTING 79 MG/DL (70-100); POTASSIUM SERUM 4.6 MEQ/L (3.5-5.1); SODIUM LEVEL 139 MEQ/L (136-145)
[2018-04-27] MEDS: MEGESTROL SUSP 400 MG/10 ML UDC PO ×2 (10:59)
[2018-04-27] MEDS: CARVedilol 12.5 MG TAB PO ×2 (11:00)
[2018-04-27] MEDS: FOLIC ACID 1 MG TAB PO ×2 (11:01)
[2018-04-27] MEDS: ASPIRIN 81 MG ENTERIC TAB PO ×2 (11:01)
[2018-04-27] MEDS: LOPERAMIDE 2 MG CAP PO ×2 (11:01)
[2018-04-27] MEDS: (RENVELA) SEVELAMER **CARBONate** 800 MG TAB PO ×4 (11:04→12:30)
== END 2018-04-27 14:20 | disposition home or self-care (01) | DRG 312 ==
LOC: M ED INP 23:20 → M MS5PR 23:20 → M ED 18:02 → M ED INP 22:22 → M MS5PR 23:20
PROC: 30233N1 Transfusion of Nonautologous Red Blood Cells into Peripheral Vein, Percutaneous Approach (ICD-10-PCS; principal; 2018-04-26)
PROC: 5A1D70Z Performance of Urinary Filtration, Intermittent, Less than 6 Hours Per Day (ICD-10-PCS; 2018-04-26)
DX: I95.3 Hypotension of hemodialysis (principal); N18.6 End stage renal disease; I50.32 Chronic diastolic (congestive) heart failure; I13.2 Hypertensive heart and chronic kidney disease with heart failure and with stage 5 chronic kidney disease, or end stage renal disease; E87.6 Hypokalemia; E87.8 Other disorders of electrolyte and fluid balance, not elsewhere classified; D63.1 Anemia in chronic kidney disease; R33.9 Retention of urine, unspecified; N25.0 Renal osteodystrophy; J44.9 Chronic obstructive pulmonary disease, unspecified; Z99.2 Dependence on renal dialysis; Z86.73 Personal history of transient ischemic attack (TIA), and cerebral infarction without residual deficits; Z95.828 Presence of other vascular implants and grafts; Z79.82 Long term (current) use of aspirin; Z96.642 Presence of left artificial hip joint; Z88.1 Allergy status to other antibiotic agents; Z87.891 Personal history of nicotine dependence; Z96.0 Presence of urogenital implants; Z85.47 Personal history of malignant neoplasm of testis; Z88.2 Allergy status to sulfonamides

== ENCOUNTER 2018-04-28 23:30 | Emergency (ER) | payer MEDICARE, MEDICAID ==
[2018-04-29 00:35] LABS: BASO % 0.4 % (0.0-1.0); EOS # 0.6 10^3/uL (0.0-0.50); EOS % 7.2 % (0.0-3.0); HEMATOCRIT 30.3 % (42.0-52.0); HEMOGLOBIN 9.6 g/dl (13.5-17.5); IMMATURE GRANULOCYTE % 2.2 % (0-3.0); LYMPH % 12.3 % (24.0-44.0); MEAN CORPUSCULAR HEMOGLOBIN 32.1 pg (27.0-33.0); MEAN CORPUSCULAR HGB CONC 31.7 g/dl (32.0-36.5); MEAN CORPUSCULAR VOLUME 101.3 fl (80.0-96.0); MONO # 1.2 10^3/uL (0.0-0.8); MONO % 14.4 % (0.0-5.0); NEUTROPHILS # 5.4 10^3/uL (1.8-7.7); NEUTROPHILS % 63.5 % (36.0-66.0); PLATELET COUNT, AUTOMATED 144 10^3/uL (150-450); RED BLOOD COUNT 2.99 10^6/uL (4.30-6.10); RED CELL DISTRIBUTION WIDTH 17.1 % (11.5-14.5); WHITE BLOOD COUNT 8.5 10^3/uL (4.0-10.0)
[2018-04-29 01:01] LABS: ANION GAP 4 MEQ/L (8-16); BLOOD UREA NITROGEN 16 MG/DL (7-18); CALCIUM LEVEL 8.4 MG/DL (8.8-10.2); CARBON DIOXIDE LEVEL 35 MEQ/L (21-32); CHLORIDE LEVEL 100 MEQ/L (98-107); CPK CREATINE PHOSPHOKINASE 39 U/L (39-308); CREATININE FOR GFR 3.61 MG/DL (0.70-1.30); GLOMERULAR FILTRATION RATE 17.2 (>35); GLUCOSE, FASTING 142 MG/DL (70-100); POTASSIUM SERUM 4.5 MEQ/L (3.5-5.1); SODIUM LEVEL 139 MEQ/L (136-145); TROPONIN I 0.02 NG/ML (< 0.10)
[2018-04-29 01:02] LABS: CK-MB VALUE MASS 1.7 NG/ML (<3.6); MB/CK RELATIVE INDEX 4.35 (< OR =4)
== END 2018-04-29 02:25 | disposition home or self-care (01) ==
LOC: M ED 23:30
DX: J44.9 Chronic obstructive pulmonary disease, unspecified (principal); N18.6 End stage renal disease; Z99.2 Dependence on renal dialysis; Z88.1 Allergy status to other antibiotic agents; Z88.2 Allergy status to sulfonamides; Z79.899 Other long term (current) drug therapy; Z79.82 Long term (current) use of aspirin
CPT/HCPCS: 71045

== ENCOUNTER → 2018-05-24 | Outpatient (REF) | payer MEDICARE, MEDICAID ==
[2018-05-24 18:14] LABS: APPEARANCE, URINE TURBID (CLEAR); BACTERIA, URINE AUTO 2+ (NEGATIVE); BILIRUBIN, URINE AUTO NEGATIVE (NEGATIVE); BLOOD, URINE BLOOD 3+ (NEGATIVE); COLOR, URINE YELLOW (YELLOW); GLUCOSE, URINE (UA) AUTO NEGATIVE (NEGATIVE); KETONE, URINE AUTO NEGATIVE (NEGATIVE); LEUKOCYTE ESTERASE, URINE AUTO 3+ (NEGATIVE); NITRITE, URINE AUTO NEGATIVE (NEGATIVE); PROTEIN, URINE AUTO 3+ mg/dL (NEGATIVE); RBC, URINE AUTO TNTC /HPF (0-3); SPECIFIC GRAVITY URINE AUTO 1.009 (1.002-1.035); SQUAMOUS EPITHELIAL CELL UR AU 0 /HPF (0-6); UROBILINOGEN, URINE AUTO 0.2 mg/dL (0.0-2.0); WBC, URINE AUTO TNTC /HPF (0-3); YEAST LIKE CELL URINE AUTO SMALL
== END ==
LOC: M SMT 17:26
DX: R82.90 Unspecified abnormal findings in urine (principal)
CPT/HCPCS: 81001

== ENCOUNTER 2018-05-28 19:39 | Emergency (ER) | payer MEDICARE, MEDICAID ==
[2018-05-28] MEDS: methylPREDNISolone INJ 125 MG/2 ML VIAL (J2930) IV (20:30)
[2018-05-28 20:40] LABS: BASO % 0.2 % (0.0-1.0); EOS # 0.6 10^3/uL (0.0-0.50); EOS % 6.4 % (0.0-3.0); HEMATOCRIT 33.3 % (42.0-52.0); HEMOGLOBIN 10.6 g/dl (13.5-17.5); IMMATURE GRANULOCYTE % 1.6 % (0-3.0); LYMPH # 1.2 10^3/uL (1.5-4.5); MEAN CORPUSCULAR HEMOGLOBIN 32.4 pg (27.0-33.0); MEAN CORPUSCULAR HGB CONC 31.8 g/dl (32.0-36.5); MEAN CORPUSCULAR VOLUME 101.8 fl (80.0-96.0); MONO # 1.4 10^3/uL (0.0-0.8); MONO % 16.4 % (0.0-5.0); NEUTROPHILS # 5.4 10^3/uL (1.8-7.7); NEUTROPHILS % 61.4 % (36.0-66.0); PLATELET COUNT, AUTOMATED 170 10^3/uL (150-450); RED BLOOD COUNT 3.27 10^6/uL (4.30-6.10); RED CELL DISTRIBUTION WIDTH 16.5 % (11.5-14.5); WHITE BLOOD COUNT 8.7 10^3/uL (4.0-10.0)
[2018-05-28] MEDS: IPRATROPIUM 0.5MG/ALBUTEROL 2.5MG INH SOL UD 3ML (DUONEB)(J7620) NEB (21:04)
[2018-05-28 21:53] LABS: ALBUMIN 3.3 GM/DL (3.2-5.2); ALKALINE PHOSPHATASE 95 U/L (45-117); ALT/SGPT 14 U/L (12-78); ANION GAP 10 MEQ/L (8-16); AST/SGOT 11 U/L (7-37); BILIRUBIN,DIRECT 0.1 MG/DL (0.0-0.2); BILIRUBIN,TOTAL 0.4 MG/DL (0.2-1.0); BLOOD UREA NITROGEN 60 MG/DL (7-18); CALCIUM LEVEL 8.5 MG/DL (8.8-10.2); CARBON DIOXIDE LEVEL 29 MEQ/L (21-32); CHLORIDE LEVEL 102 MEQ/L (98-107); CPK CREATINE PHOSPHOKINASE 27 U/L (39-308); CREATININE FOR GFR 8.36 MG/DL (0.70-1.30); GLOMERULAR FILTRATION RATE 6.5 (>35); GLUCOSE, FASTING 84 MG/DL (70-100); MB/CK RELATIVE INDEX 5.19 (< OR =4); POTASSIUM SERUM 5.5 MEQ/L (3.5-5.1); SODIUM LEVEL 141 MEQ/L (136-145); TOTAL PROTEIN 6.3 GM/DL (6.4-8.2); TROPONIN I 0.02 NG/ML (< 0.10)
[2018-05-28] MEDS: predniSONE 20 MG TAB PO (22:45)
== END 2018-05-28 22:54 | disposition home or self-care (01) ==
LOC: M ED 19:39
DX: J44.1 Chronic obstructive pulmonary disease with (acute) exacerbation (principal); I50.9 Heart failure, unspecified; E03.9 Hypothyroidism, unspecified; Z86.718 Personal history of other venous thrombosis and embolism; N18.6 End stage renal disease; D64.9 Anemia, unspecified; Z85.47 Personal history of malignant neoplasm of testis; H91.90 Unspecified hearing loss, unspecified ear; Z87.891 Personal history of nicotine dependence; Z88.1 Allergy status to other antibiotic agents
CPT/HCPCS: J2930

== ENCOUNTER 2018-06-09 18:41 | Emergency (ER) | payer MEDICARE, MEDICAID ==
[2018-06-09] MEDS: IPRATROPIUM 0.5MG/ALBUTEROL 2.5MG INH SOL UD 3ML (DUONEB)(J7620) NEB (20:01)
[2018-06-09 20:14] LABS: ABG HCO3 30.8 MEQ/L (22.0-26.0); ABG PARTIAL PRESSURE O2 74.8 mmHg (75.0-100.0); ABG STANDARD HCO3 30.8 MEQ/L (22.0-26.0); ABG TOTAL CO2 32.1 MEQ/L (23.0-31.0); ABG pH (ARTERIAL) 7.494 UNITS (7.350-7.450)
[2018-06-09 20:34] LABS: HEMATOCRIT 31.3 % (42.0-52.0); MEAN CORPUSCULAR HEMOGLOBIN 31.9 pg (27.0-33.0); MEAN CORPUSCULAR HGB CONC 31.9 g/dl (32.0-36.5); PLATELET COUNT, AUTOMATED 167 10^3/uL (150-450); RED BLOOD COUNT 3.13 10^6/uL (4.30-6.10); RED CELL DISTRIBUTION WIDTH 16.1 % (11.5-14.5); WHITE BLOOD COUNT 7.2 10^3/uL (4.0-10.0)
[2018-06-09 20:42] LABS: ADD MANUAL DIFFER YES; DIFF SLIDE NUMBER 322; POS COUNT POS FLAG; POSITIVE MORPH POS FLAG
[2018-06-09 20:44] LABS: PROTHROMBIN TIME 12.3 SECONDS (12.1-14.4)
[2018-06-09 20:53] LABS: LACTIC ACID SEPSIS PROTOCOL 1.1 MMOL/L (0.4-2.0)
[2018-06-09 20:59] LABS: ALBUMIN 3.2 GM/DL (3.2-5.2); ALBUMIN/GLOBULIN RATIO 1.03 (1.00-1.93); ALKALINE PHOSPHATASE 109 U/L (45-117); ALT/SGPT 32 U/L (12-78); ANION GAP 7 MEQ/L (8-16); AST/SGOT 23 U/L (7-37); BILIRUBIN,DIRECT 0.1 MG/DL (0.0-0.2); BILIRUBIN,TOTAL 0.3 MG/DL (0.2-1.0); BLOOD UREA NITROGEN 18 MG/DL (7-18); C REACTIVE PROTEIN QUANTITATIV 1.35 MG/DL (0.00-0.30); CALCIUM LEVEL 8.6 MG/DL (8.8-10.2); CARBON DIOXIDE LEVEL 35 MEQ/L (21-32); CHLORIDE LEVEL 101 MEQ/L (98-107); CPK CREATINE PHOSPHOKINASE 28 U/L (39-308); CREATININE FOR GFR 3.64 MG/DL (0.70-1.30); GLUCOSE, FASTING 63 MG/DL (70-100); MB/CK RELATIVE INDEX 5.36 (< OR =4); NT-PRO BNP 12421 PG/ML (<450); SODIUM LEVEL 143 MEQ/L (136-145); THYROXINE (T4) 8.2 UG/DL (4.5-12.0); TOTAL PROTEIN 6.3 GM/DL (6.4-8.2); TROPONIN I 0.04 NG/ML (< 0.10)
[2018-06-09 21:11] LABS: ATYPICAL LYMPH 6 % (0-5); BANDS 3 % (< 11); EOSINOPHILS 4 % (0-5); LYMPHOCYTES 4 % (16-52); METAMYELOCYTES 1 % (0-0); MONOCYTES 3 % (0-8); MYELOCYTES 2 % (0-0); NEUTROPHILS 77 % (35-75); PLATELET ESTIMATE NORMAL (NORMAL)
[2018-06-09 21:12] LABS: ANISOCYTOSIS 1+
[2018-06-09] MEDS: predniSONE 20 MG TAB PO (22:15)
[2018-06-09] MEDS: AZITHROMYCIN 250 MG TAB PO (22:15)
== END 2018-06-09 22:20 | disposition home or self-care (01) ==
LOC: M ED 18:41
DX: J44.1 Chronic obstructive pulmonary disease with (acute) exacerbation (principal); I49.3 Ventricular premature depolarization; N18.6 End stage renal disease; Z86.73 Personal history of transient ischemic attack (TIA), and cerebral infarction without residual deficits; Z87.891 Personal history of nicotine dependence; Z79.899 Other long term (current) drug therapy; Z79.82 Long term (current) use of aspirin; Z99.2 Dependence on renal dialysis

== ENCOUNTER 2018-06-12 03:33 | Inpatient (IN) | payer MEDICARE, MEDICAID ==
[2018-06-12 04:35] LABS: ABG HCO3 21.5 MEQ/L (22.0-26.0); ABG O2 SATURATION 97.8 % (95.0-99.0); ABG PARTIAL PRESSURE CO2 41.3 mmHg (35.0-45.0); ABG PARTIAL PRESSURE O2 113.8 mmHg (75.0-100.0); ABG STANDARD HCO3 21.1 MEQ/L (22.0-26.0); ABG TOTAL CO2 22.8 MEQ/L (23.0-31.0); ABG pH (ARTERIAL) 7.335 UNITS (7.350-7.450)
[2018-06-12] MEDS: methylPREDNISolone INJ 125 MG/2 ML VIAL (J2930) IV (04:36)
[2018-06-12 04:37] LABS: HEMATOCRIT 29.2 % (42.0-52.0); HEMOGLOBIN 9.5 g/dl (13.5-17.5); MEAN CORPUSCULAR HEMOGLOBIN 32.1 pg (27.0-33.0); MEAN CORPUSCULAR HGB CONC 32.5 g/dl (32.0-36.5); MEAN CORPUSCULAR VOLUME 98.6 fl (80.0-96.0); PLATELET COUNT, AUTOMATED 209 10^3/uL (150-450); RED BLOOD COUNT 2.96 10^6/uL (4.30-6.10); RED CELL DISTRIBUTION WIDTH 16.2 % (11.5-14.5)
[2018-06-12 04:39] LABS: POS COUNT POS FLAG; POSITIVE MORPH POS FLAG
[2018-06-12 04:39] LABS: LACTIC ACID SEPSIS PROTOCOL 0.5 MMOL/L (0.4-2.0)
[2018-06-12 04:42] LABS: ADD MANUAL DIFFER YES; DIFF SLIDE NUMBER 93
[2018-06-12 05:20] LABS: ANION GAP 12 MEQ/L (8-16); BLOOD UREA NITROGEN 87 MG/DL (7-18); CALCIUM LEVEL 8.1 MG/DL (8.8-10.2); CARBON DIOXIDE LEVEL 27 MEQ/L (21-32); CHLORIDE LEVEL 103 MEQ/L (98-107); CPK CREATINE PHOSPHOKINASE 43 U/L (39-308); CREATININE FOR GFR 8.11 MG/DL (0.70-1.30); GLOMERULAR FILTRATION RATE 6.8 (>35); GLUCOSE, FASTING 119 MG/DL (70-100); MB/CK RELATIVE INDEX 5.35 (< OR =4); NT-PRO BNP 20307 PG/ML (<450); SODIUM LEVEL 142 MEQ/L (136-145); TROPONIN I 0.06 NG/ML (< 0.10)
[2018-06-12 05:45] LABS: LYMPHOCYTES 4 % (16-52); METAMYELOCYTES 1 % (0-0); MONOCYTES 2 % (0-8); MYELOCYTES 1 % (0-0); NEUTROPHILS 92 % (35-75)
[2018-06-12 05:46] LABS: ANISOCYTOSIS 1+; PLATELET ESTIMATE NORMAL (NORMAL)
[2018-06-12] MEDS: HEPARIN SOD (PORCINE) 5000 UNITS/ML VIAL SC ×3 (06:00→21:23)
[2018-06-12] MEDS ORDERED: ISOVUE-370 76% 100ML VIAL (Q9967) As Ordered (06:04)
[2018-06-12] MEDS: hydrALAZINE INJ 20 MG/ML VIAL IV (06:07)
[2018-06-12] MEDS: IPRATROPIUM 0.5MG/ALBUTEROL 2.5MG INH SOL UD 3ML (DUONEB)(J7620) NEB ×3 (07:58→20:29)
[2018-06-12] MEDS: PIPERACILLIN/TAZOBACTAM SOD 2.25 GM in D5W MINI-BAG PLUS 50 ML IV (08:00)
[2018-06-12] MEDS: CARVedilol 12.5 MG TAB PO ×2 (09:00→21:23)
[2018-06-12] MEDS ORDERED: ACETAMINOPHEN TAB 650MG DOSE (2X325MG) PO (09:30)
[2018-06-12] MEDS ORDERED: IPRATROPIUM 0.5MG/ALBUTEROL 2.5MG INH SOL UD 3ML (DUONEB)(J7620) NEB (09:30)
[2018-06-12] MEDS: VANCOMYCIN HCL 1,000 MG, VIAL MATE ADAPTER 1 EACH in D5W 250 ML IV (10:46)
[2018-06-12 11:17] LABS: CPK CREATINE PHOSPHOKINASE 29 U/L (39-308); MB/CK RELATIVE INDEX 8.97 (< OR =4); TROPONIN I 0.08 NG/ML (< 0.10)
[2018-06-12] MEDS: (RENVELA) SEVELAMER **CARBONate** 800 MG TAB PO ×2 (12:30→17:55)
[2018-06-12] MEDS: HEPARIN 1,000 UNITS/ML 10ML VIAL (FOR RADIOLOGY& DIALYSIS ONLY) IV (12:30)
[2018-06-12] MEDS: methylPREDNISolone INJ 40 MG/1 ML VIAL (J2920) IV ×2 (13:00→21:24)
[2018-06-12] MEDS: LEVOTHYROXINE 25MCG TABLET (0.025MG) PO (17:56)
[2018-06-12] MEDS: FOLIC ACID 1 MG TAB PO (17:56)
[2018-06-12] MEDS: cefTRIAXone SOD 1 GM in D5W MINI-BAG PLUS 50 ML IV (17:56)
[2018-06-12] MEDS: ASPIRIN 81 MG ENTERIC TAB PO (17:56)
[2018-06-12] MEDS ORDERED: SLF 3 ML SYR IV (18:00)
[2018-06-12] MEDS: DOXYCYCLINE HYCLATE 100 MG in D5W MINI-BAG PLUS 100 ML IV (20:32)
[2018-06-12] MEDS: LATANOPROST 0.005% OPHTH SOLN 2.5 ML OU (21:23)
[2018-06-12] MEDS: NEPHRO-VIT TAB (NEPHROCAPS) PO (21:23)
[2018-06-12] MEDS: SLF 3 ML SYR IV (21:29)
[2018-06-12] MEDS ORDERED: DARBEPOETIN 100 MCG/0.5 ML *DIALYSIS* SYRINGE (J0882) IV (22:00)
[2018-06-13] MEDS: IPRATROPIUM 0.5MG/ALBUTEROL 2.5MG INH SOL UD 3ML (DUONEB)(J7620) NEB ×4 (02:00→21:50)
[2018-06-13] MEDS: DOXYCYCLINE HYCLATE 100 MG in D5W MINI-BAG PLUS 100 ML IV ×3 (02:16→14:34)
[2018-06-13] MEDS: methylPREDNISolone INJ 40 MG/1 ML VIAL (J2920) IV ×2 (05:00→12:21)
[2018-06-13] MEDS: SLF 3 ML SYR IV ×3 (05:38→22:40)
[2018-06-13] MEDS: LEVOTHYROXINE 25MCG TABLET (0.025MG) PO (06:00)
[2018-06-13] MEDS: HEPARIN SOD (PORCINE) 5000 UNITS/ML VIAL SC ×3 (06:00→22:39)
[2018-06-13 06:03] LABS: HEMATOCRIT 27.3 % (42.0-52.0); HEMOGLOBIN 9.1 g/dl (13.5-17.5); MEAN CORPUSCULAR HEMOGLOBIN 31.7 pg (27.0-33.0); MEAN CORPUSCULAR HGB CONC 33.3 g/dl (32.0-36.5); MEAN CORPUSCULAR VOLUME 95.1 fl (80.0-96.0); PLATELET COUNT, AUTOMATED 196 10^3/uL (150-450); RED BLOOD COUNT 2.87 10^6/uL (4.30-6.10); RED CELL DISTRIBUTION WIDTH 16.2 % (11.5-14.5); WHITE BLOOD COUNT 13.2 10^3/uL (4.0-10.0)
[2018-06-13 06:12] LABS: ADD MANUAL DIFFER YES; DIFF SLIDE NUMBER 51; POS COUNT POS FLAG; POSITIVE MORPH POS FLAG
[2018-06-13 06:26] LABS: ALBUMIN/GLOBULIN RATIO 0.97 (1.00-1.93); ALKALINE PHOSPHATASE 99 U/L (45-117); ALT/SGPT 27 U/L (12-78); ANION GAP 11 MEQ/L (8-16); AST/SGOT 17 U/L (7-37); BILIRUBIN,TOTAL 0.4 MG/DL (0.2-1.0); BLOOD UREA NITROGEN 40 MG/DL (7-18); CALCIUM LEVEL 8.2 MG/DL (8.8-10.2); CARBON DIOXIDE LEVEL 27 MEQ/L (21-32); CHLORIDE LEVEL 98 MEQ/L (98-107); GLOMERULAR FILTRATION RATE 12.1 (>35); GLUCOSE, FASTING 117 MG/DL (70-100); POTASSIUM SERUM 4.2 MEQ/L (3.5-5.1); SODIUM LEVEL 136 MEQ/L (136-145); TOTAL PROTEIN 6.1 GM/DL (6.4-8.2)
[2018-06-13 06:34] LABS: ANISOCYTOSIS 1+; BANDS 1 % (< 11); LYMPHOCYTES 6 % (16-52); MONOCYTES 4 % (0-8); MYELOCYTES 1 % (0-0); NEUTROPHILS 88 % (35-75); PLATELET ESTIMATE NORMAL (NORMAL)
[2018-06-13] MEDS: FOLIC ACID 1 MG TAB PO (08:17)
[2018-06-13] MEDS: ASPIRIN 81 MG ENTERIC TAB PO (08:17)
[2018-06-13] MEDS: (RENVELA) SEVELAMER **CARBONate** 800 MG TAB PO ×3 (08:17→17:42)
[2018-06-13] MEDS: CARVedilol 12.5 MG TAB PO ×2 (08:19→22:39)
[2018-06-13 09:13] LABS: GOLD SPEC TUBE RECIEVED
[2018-06-13] MEDS: cefTRIAXone SOD 1 GM in D5W MINI-BAG PLUS 50 ML IV (14:33)
[2018-06-13] MEDS: predniSONE 20 MG TAB PO (17:42)
[2018-06-13] MEDS: NEPHRO-VIT TAB (NEPHROCAPS) PO (22:39)
[2018-06-14] MEDS: LATANOPROST 0.005% OPHTH SOLN 2.5 ML OU ×2 (01:06→21:50)
[2018-06-14] MEDS: IPRATROPIUM 0.5MG/ALBUTEROL 2.5MG INH SOL UD 3ML (DUONEB)(J7620) NEB ×4 (01:36→21:17)
[2018-06-14] MEDS: DOXYCYCLINE HYCLATE 100 MG in D5W MINI-BAG PLUS 100 ML IV ×2 (02:01→16:06)
[2018-06-14 06:23] LABS: HEMATOCRIT 27.2 % (42.0-52.0); HEMOGLOBIN 9.1 g/dl (13.5-17.5); MEAN CORPUSCULAR HEMOGLOBIN 31.8 pg (27.0-33.0); MEAN CORPUSCULAR HGB CONC 33.5 g/dl (32.0-36.5); MEAN CORPUSCULAR VOLUME 95.1 fl (80.0-96.0); PLATELET COUNT, AUTOMATED 192 10^3/uL (150-450); RED BLOOD COUNT 2.86 10^6/uL (4.30-6.10); RED CELL DISTRIBUTION WIDTH 15.9 % (11.5-14.5); WHITE BLOOD COUNT 13.3 10^3/uL (4.0-10.0)
[2018-06-14 06:35] LABS: ADD MANUAL DIFFER YES; DIFF SLIDE NUMBER 31; POS COUNT POS FLAG; POSITIVE MORPH POS FLAG
[2018-06-14 06:47] LABS: LYMPHOCYTES 5 % (16-52); METAMYELOCYTES 1 % (0-0); MONOCYTES 4 % (0-8); MYELOCYTES 2 % (0-0); NEUTROPHILS 88 % (35-75); PLATELET ESTIMATE NORMAL (NORMAL)
[2018-06-14 06:48] LABS: ANISOCYTOSIS 1+
[2018-06-14] MEDS: LEVOTHYROXINE 25MCG TABLET (0.025MG) PO (06:51)
[2018-06-14] MEDS: predniSONE 20 MG TAB PO ×2 (06:51→18:00)
[2018-06-14] MEDS: SLF 3 ML SYR IV ×3 (06:51→21:51)
[2018-06-14] MEDS: HEPARIN SOD (PORCINE) 5000 UNITS/ML VIAL SC ×3 (06:51→21:50)
[2018-06-14] MEDS: CARVedilol 12.5 MG TAB PO ×2 (06:52→21:51)
[2018-06-14] MEDS: FOLIC ACID 1 MG TAB PO (06:53)
[2018-06-14] MEDS: ASPIRIN 81 MG ENTERIC TAB PO (06:53)
[2018-06-14 06:55] LABS: ALBUMIN 2.9 GM/DL (3.2-5.2); ALBUMIN/GLOBULIN RATIO 0.97 (1.00-1.93); ALKALINE PHOSPHATASE 97 U/L (45-117); ALT/SGPT 30 U/L (12-78); ANION GAP 14 MEQ/L (8-16); AST/SGOT 12 U/L (7-37); BILIRUBIN,TOTAL 0.4 MG/DL (0.2-1.0); BLOOD UREA NITROGEN 69 MG/DL (7-18); CALCIUM LEVEL 7.8 MG/DL (8.8-10.2); CARBON DIOXIDE LEVEL 24 MEQ/L (21-32); CHLORIDE LEVEL 94 MEQ/L (98-107); CREATININE FOR GFR 6.65 MG/DL (0.70-1.30); GLOMERULAR FILTRATION RATE 8.5 (>35); GLUCOSE, FASTING 114 MG/DL (70-100); MAGNESIUM LEVEL 1.9 MG/DL (1.8-2.4); POTASSIUM SERUM 4.6 MEQ/L (3.5-5.1); SODIUM LEVEL 132 MEQ/L (136-145); TOTAL PROTEIN 5.9 GM/DL (6.4-8.2)
[2018-06-14] MEDS: (RENVELA) SEVELAMER **CARBONate** 800 MG TAB PO ×3 (08:45→18:00)
[2018-06-14] MEDS: HEPARIN 1,000 UNITS/ML 10ML VIAL (FOR RADIOLOGY& DIALYSIS ONLY) IV (12:15)
[2018-06-14] MEDS: cefTRIAXone SOD 1 GM in D5W MINI-BAG PLUS 50 ML IV (15:08)
[2018-06-14] MEDS: NEPHRO-VIT TAB (NEPHROCAPS) PO (21:51)
[2018-06-15] MEDS: IPRATROPIUM 0.5MG/ALBUTEROL 2.5MG INH SOL UD 3ML (DUONEB)(J7620) NEB ×4 (01:52→19:58)
[2018-06-15] MEDS: DOXYCYCLINE HYCLATE 100 MG in D5W MINI-BAG PLUS 100 ML IV ×2 (03:05→13:29)
[2018-06-15] MEDS: predniSONE 20 MG TAB PO ×2 (05:47→18:27)
[2018-06-15] MEDS: SLF 3 ML SYR IV ×3 (05:47→21:15)
[2018-06-15] MEDS: LEVOTHYROXINE 25MCG TABLET (0.025MG) PO (05:47)
[2018-06-15] MEDS: HEPARIN SOD (PORCINE) 5000 UNITS/ML VIAL SC ×3 (05:47→21:15)
[2018-06-15 06:49] LABS: HEMATOCRIT 28.9 % (42.0-52.0); HEMOGLOBIN 9.7 g/dl (13.5-17.5); MEAN CORPUSCULAR HEMOGLOBIN 32.1 pg (27.0-33.0); MEAN CORPUSCULAR HGB CONC 33.6 g/dl (32.0-36.5); MEAN CORPUSCULAR VOLUME 95.7 fl (80.0-96.0); PLATELET COUNT, AUTOMATED 191 10^3/uL (150-450); RED BLOOD COUNT 3.02 10^6/uL (4.30-6.10); RED CELL DISTRIBUTION WIDTH 16.1 % (11.5-14.5); WHITE BLOOD COUNT 18.3 10^3/uL (4.0-10.0)
[2018-06-15 06:55] LABS: ADD MANUAL DIFFER YES; DIFF SLIDE NUMBER 29; POS COUNT POS FLAG; POSITIVE MORPH POS FLAG
[2018-06-15 07:14] LABS: ALBUMIN 2.9 GM/DL (3.2-5.2); ALBUMIN/GLOBULIN RATIO 1.04 (1.00-1.93); ALKALINE PHOSPHATASE 96 U/L (45-117); ALT/SGPT 29 U/L (12-78); ANION GAP 8 MEQ/L (8-16); AST/SGOT 14 U/L (7-37); BILIRUBIN,TOTAL 0.3 MG/DL (0.2-1.0); BLOOD UREA NITROGEN 37 MG/DL (7-18); CALCIUM LEVEL 8.1 MG/DL (8.8-10.2); CARBON DIOXIDE LEVEL 31 MEQ/L (21-32); CHLORIDE LEVEL 97 MEQ/L (98-107); CREATININE FOR GFR 4.25 MG/DL (0.70-1.30); GLOMERULAR FILTRATION RATE 14.2 (>35); GLUCOSE, FASTING 113 MG/DL (70-100); MAGNESIUM LEVEL 1.9 MG/DL (1.8-2.4); POTASSIUM SERUM 4.2 MEQ/L (3.5-5.1); SODIUM LEVEL 136 MEQ/L (136-145); TOTAL PROTEIN 5.7 GM/DL (6.4-8.2)
[2018-06-15 07:46] LABS: ATYPICAL LYMPH 1 % (0-5); LYMPHOCYTES 10 % (16-52); MONOCYTES 2 % (0-8); MYELOCYTES 5 % (0-0); NEUTROPHILS 82 % (35-75)
[2018-06-15 07:47] LABS: ANISOCYTOSIS 1+; PLATELET ESTIMATE NORMAL (NORMAL); POIKILOCYTOSIS 1+
[2018-06-15] MEDS: (RENVELA) SEVELAMER **CARBONate** 800 MG TAB PO ×3 (08:52→18:27)
[2018-06-15] MEDS: FOLIC ACID 1 MG TAB PO (08:53)
[2018-06-15] MEDS: ASPIRIN 81 MG ENTERIC TAB PO (08:54)
[2018-06-15] MEDS: CARVedilol 12.5 MG TAB PO ×2 (08:55→21:14)
[2018-06-15 10:31] LABS: C REACTIVE PROTEIN QUANTITATIV < 0.30 MG/DL (0.00-0.30)
[2018-06-15 11:36] LABS: ERYTHROCYTE SEDIMENTATION RATE 23 mm/hr (0-30)
[2018-06-15] MEDS: cefTRIAXone SOD 1 GM in D5W MINI-BAG PLUS 50 ML IV (13:29)
[2018-06-15] MEDS: NEPHRO-VIT TAB (NEPHROCAPS) PO (21:13)
[2018-06-15] MEDS: LATANOPROST 0.005% OPHTH SOLN 2.5 ML OU (21:15)
[2018-06-16] MEDS: IPRATROPIUM 0.5MG/ALBUTEROL 2.5MG INH SOL UD 3ML (DUONEB)(J7620) NEB ×4 (02:00→21:12)
[2018-06-16] MEDS: DOXYCYCLINE HYCLATE 100 MG in D5W MINI-BAG PLUS 100 ML IV ×2 (03:24→14:23)
[2018-06-16] MEDS: predniSONE 20 MG TAB PO (05:57)
[2018-06-16] MEDS: (RENVELA) SEVELAMER **CARBONate** 800 MG TAB PO ×3 (05:57→18:34)
[2018-06-16] MEDS: HEPARIN SOD (PORCINE) 5000 UNITS/ML VIAL SC ×3 (05:57→22:03)
[2018-06-16] MEDS: FOLIC ACID 1 MG TAB PO (05:58)
[2018-06-16] MEDS: ASPIRIN 81 MG ENTERIC TAB PO (05:58)
[2018-06-16] MEDS: CARVedilol 12.5 MG TAB PO ×2 (05:58→21:00)
[2018-06-16] MEDS: LEVOTHYROXINE 25MCG TABLET (0.025MG) PO (05:58)
[2018-06-16] MEDS: SLF 3 ML SYR IV ×3 (05:58→22:00)
[2018-06-16 06:10] LABS: HEMATOCRIT 27.2 % (42.0-52.0); HEMOGLOBIN 9.1 g/dl (13.5-17.5); MEAN CORPUSCULAR HGB CONC 33.5 g/dl (32.0-36.5); MEAN CORPUSCULAR VOLUME 95.8 fl (80.0-96.0); PLATELET COUNT, AUTOMATED 197 10^3/uL (150-450); RED BLOOD COUNT 2.84 10^6/uL (4.30-6.10); WHITE BLOOD COUNT 13.8 10^3/uL (4.0-10.0)
[2018-06-16 06:17] LABS: ADD MANUAL DIFFER YES; DIFF SLIDE NUMBER 19; POS COUNT POS FLAG; POSITIVE MORPH POS FLAG
[2018-06-16 06:38] LABS: ALBUMIN 2.6 GM/DL (3.2-5.2); ALBUMIN/GLOBULIN RATIO 0.96 (1.00-1.93); ALKALINE PHOSPHATASE 95 U/L (45-117); ALT/SGPT 29 U/L (12-78); ANION GAP 12 MEQ/L (8-16); AST/SGOT 11 U/L (7-37); BILIRUBIN,TOTAL 0.4 MG/DL (0.2-1.0); BLOOD UREA NITROGEN 60 MG/DL (7-18); CALCIUM LEVEL 7.7 MG/DL (8.8-10.2); CARBON DIOXIDE LEVEL 29 MEQ/L (21-32); CHLORIDE LEVEL 92 MEQ/L (98-107); CREATININE FOR GFR 6.03 MG/DL (0.70-1.30); GLOMERULAR FILTRATION RATE 9.5 (>35); GLUCOSE, FASTING 111 MG/DL (70-100); MAGNESIUM LEVEL 1.8 MG/DL (1.8-2.4); POTASSIUM SERUM 4.8 MEQ/L (3.5-5.1); SODIUM LEVEL 133 MEQ/L (136-145); TOTAL PROTEIN 5.3 GM/DL (6.4-8.2)
[2018-06-16 06:39] LABS: ATYPICAL LYMPH 1 % (0-5); LYMPHOCYTES 7 % (16-52); MONOCYTES 4 % (0-8); NEUTROPHILS 88 % (35-75); PLATELET ESTIMATE NORMAL (NORMAL)
[2018-06-16 06:40] LABS: OVALOCYTES 1+; TEAR DROP CELLS 1+
[2018-06-16 06:41] LABS: ANISOCYTOSIS 1+
[2018-06-16] MEDS: HEPARIN 1,000 UNITS/ML 10ML VIAL (FOR RADIOLOGY& DIALYSIS ONLY) IV (11:45)
[2018-06-16] MEDS: cefTRIAXone SOD 1 GM in D5W MINI-BAG PLUS 50 ML IV (13:28)
[2018-06-16 17:44] LABS: HEMATOCRIT 29.9 % (42.0-52.0); MEAN CORPUSCULAR HEMOGLOBIN 31.9 pg (27.0-33.0); MEAN CORPUSCULAR HGB CONC 33.4 g/dl (32.0-36.5); MEAN CORPUSCULAR VOLUME 95.5 fl (80.0-96.0); PLATELET COUNT, AUTOMATED 210 10^3/uL (150-450); RED BLOOD COUNT 3.13 10^6/uL (4.30-6.10); RED CELL DISTRIBUTION WIDTH 16.3 % (11.5-14.5); WHITE BLOOD COUNT 17.2 10^3/uL (4.0-10.0)
[2018-06-16] MEDS: predniSONE 10 MG TAB PO (18:34)
[2018-06-16] MEDS: NEPHRO-VIT TAB (NEPHROCAPS) PO (22:02)
[2018-06-16] MEDS: LATANOPROST 0.005% OPHTH SOLN 2.5 ML OU (22:03)
[2018-06-17] MEDS: IPRATROPIUM 0.5MG/ALBUTEROL 2.5MG INH SOL UD 3ML (DUONEB)(J7620) NEB ×2 (01:30→08:41)
[2018-06-17] MEDS: DOXYCYCLINE HYCLATE 100 MG in D5W MINI-BAG PLUS 100 ML IV (03:12)
[2018-06-17] MEDS: SLF 3 ML SYR IV (06:00)
[2018-06-17] MEDS: predniSONE 10 MG TAB PO (06:02)
[2018-06-17] MEDS: LEVOTHYROXINE 25MCG TABLET (0.025MG) PO (06:02)
[2018-06-17] MEDS: HEPARIN SOD (PORCINE) 5000 UNITS/ML VIAL SC (06:02)
[2018-06-17 06:40] LABS: HEMATOCRIT 28.2 % (42.0-52.0); HEMOGLOBIN 9.3 g/dl (13.5-17.5); MEAN CORPUSCULAR HEMOGLOBIN 32.2 pg (27.0-33.0); MEAN CORPUSCULAR VOLUME 97.6 fl (80.0-96.0); PLATELET COUNT, AUTOMATED 196 10^3/uL (150-450); RED BLOOD COUNT 2.89 10^6/uL (4.30-6.10); RED CELL DISTRIBUTION WIDTH 16.5 % (11.5-14.5); WHITE BLOOD COUNT 16.2 10^3/uL (4.0-10.0)
[2018-06-17 06:43] LABS: ADD MANUAL DIFFER YES; DIFF SLIDE NUMBER 10; POS COUNT POS FLAG; POSITIVE DIFF POS FLAG; POSITIVE MORPH POS FLAG
[2018-06-17 07:04] LABS: ALBUMIN 2.8 GM/DL (3.2-5.2); ALBUMIN/GLOBULIN RATIO 1.04 (1.00-1.93); ALKALINE PHOSPHATASE 95 U/L (45-117); ALT/SGPT 29 U/L (12-78); ANION GAP 10 MEQ/L (8-16); AST/SGOT 15 U/L (7-37); ATYPICAL LYMPH 1 % (0-5); BANDS 1 % (< 11); BILIRUBIN,TOTAL 0.3 MG/DL (0.2-1.0); BLOOD UREA NITROGEN 35 MG/DL (7-18); CARBON DIOXIDE LEVEL 31 MEQ/L (21-32); CHLORIDE LEVEL 97 MEQ/L (98-107); CREATININE FOR GFR 4.23 MG/DL (0.70-1.30); GLOMERULAR FILTRATION RATE 14.3 (>35); GLUCOSE, FASTING 89 MG/DL (70-100); LYMPHOCYTES 4 % (16-52); MAGNESIUM LEVEL 1.9 MG/DL (1.8-2.4); METAMYELOCYTES 5 % (0-0); MONOCYTES 23 % (0-8); MYELOCYTES 1 % (0-0); NEUTROPHILS 65 % (35-75); POTASSIUM SERUM 4.3 MEQ/L (3.5-5.1); SODIUM LEVEL 138 MEQ/L (136-145); TOTAL PROTEIN 5.5 GM/DL (6.4-8.2)
[2018-06-17 07:05] LABS: ANISOCYTOSIS 1+; PLATELET ESTIMATE NORMAL (NORMAL)
[2018-06-17] MEDS: (RENVELA) SEVELAMER **CARBONate** 800 MG TAB PO (08:11)
[2018-06-17] MEDS: CARVedilol 12.5 MG TAB PO (09:00)
[2018-06-17] MEDS: ASPIRIN 81 MG ENTERIC TAB PO (10:35)
[2018-06-17] MEDS: FOLIC ACID 1 MG TAB PO (10:35)
== END 2018-06-17 11:49 | disposition home health service (06) | DRG 190 ==
LOC: M MSPAV 06-13 15:10 → M ED 03:33 → M ED INP 11:27 → M PCU 16:58
PROVIDERS: Internal Medicine
PROC: 5A1D70Z Performance of Urinary Filtration, Intermittent, Less than 6 Hours Per Day (ICD-10-PCS; principal; 2018-06-14)
DX: J44.1 Chronic obstructive pulmonary disease with (acute) exacerbation (principal); N18.6 End stage renal disease; I50.30 Unspecified diastolic (congestive) heart failure; I13.2 Hypertensive heart and chronic kidney disease with heart failure and with stage 5 chronic kidney disease, or end stage renal disease; D63.1 Anemia in chronic kidney disease; I16.0 Hypertensive urgency; Z86.73 Personal history of transient ischemic attack (TIA), and cerebral infarction without residual deficits; Z96.0 Presence of urogenital implants; Z79.82 Long term (current) use of aspirin; Z79.899 Other long term (current) drug therapy; Z88.1 Allergy status to other antibiotic agents; Z88.2 Allergy status to sulfonamides; Z96.649 Presence of unspecified artificial hip joint; Z99.2 Dependence on renal dialysis; Z95.828 Presence of other vascular implants and grafts; Z87.891 Personal history of nicotine dependence

== ENCOUNTER 2018-06-25 22:24 | Inpatient (IN) | payer MEDICARE, MEDICAID ==
[2018-06-25] MEDS: IPRATROPIUM 0.5MG/ALBUTEROL 2.5MG INH SOL UD 3ML (DUONEB)(J7620) NEB (23:42)
[2018-06-25 23:49] LABS: HEMOGLOBIN 7.3 g/dl (13.5-17.5); MEAN CORPUSCULAR HEMOGLOBIN 32.4 pg (27.0-33.0); MEAN CORPUSCULAR HGB CONC 31.7 g/dl (32.0-36.5); MEAN CORPUSCULAR VOLUME 102.2 fl (80.0-96.0); PLATELET COUNT, AUTOMATED 206 10^3/uL (150-450); RED BLOOD COUNT 2.25 10^6/uL (4.30-6.10); RED CELL DISTRIBUTION WIDTH 18.7 % (11.5-14.5); WHITE BLOOD COUNT 8.7 10^3/uL (4.0-10.0)
[2018-06-25 23:50] LABS: ABG BASE EXCESS 5.1 (-2.0-2.0); ABG HCO3 29.5 MEQ/L (22.0-26.0); ABG O2 SATURATION 99.3 % (95.0-99.0); ABG PARTIAL PRESSURE CO2 42.8 mmHg (35.0-45.0); ABG PARTIAL PRESSURE O2 188.5 mmHg (75.0-100.0); ABG STANDARD HCO3 29.1 MEQ/L (22.0-26.0); ABG TOTAL CO2 30.8 MEQ/L (23.0-31.0); ABG pH (ARTERIAL) 7.456 UNITS (7.350-7.450)
[2018-06-25 23:51] LABS: ADD MANUAL DIFFER YES; DIFF SLIDE NUMBER 171; POS COUNT POS FLAG; POSITIVE MORPH POS FLAG
[2018-06-25] MEDS: cefTRIAXone SOD 1 GM in D5W MINI-BAG PLUS 50 ML IV (23:53)
[2018-06-26] MEDS: dexameTHASONE 20 MG/5 ML VIAL (J1100) IV
[2018-06-26 00:01] LABS: LACTIC ACID SEPSIS PROTOCOL 0.8 MMOL/L (0.4-2.0)
[2018-06-26 00:04] LABS: ANION GAP 9 MEQ/L (8-16); BLOOD UREA NITROGEN 40 MG/DL (7-18); CARBON DIOXIDE LEVEL 30 MEQ/L (21-32); CHLORIDE LEVEL 106 MEQ/L (98-107); CREATININE FOR GFR 7.02 MG/DL (0.70-1.30); GLUCOSE, FASTING 95 MG/DL (70-100); POTASSIUM SERUM 4.3 MEQ/L (3.5-5.1); SODIUM LEVEL 145 MEQ/L (136-145)
[2018-06-26 00:19] LABS: ANISOCYTOSIS 2+; BANDS 1 % (< 11); EOSINOPHILS 1 % (0-5); LYMPHOCYTES 11 % (16-52); METAMYELOCYTES 1 % (0-0); MONOCYTES 7 % (0-8); MYELOCYTES 2 % (0-0); NEUTROPHILS 77 % (35-75); PLATELET ESTIMATE NORMAL (NORMAL); POLYCHROMASIA 1+
[2018-06-26 00:20] LABS: HYPOCHROMASIA 1+
[2018-06-26] MEDS ORDERED: HEPARIN SOD (PORCINE) 5000 UNITS/ML VIAL SC (01:15)
[2018-06-26] MEDS ORDERED: BISACODYL 10 MG SUPP PR (01:15)
[2018-06-26] MEDS ORDERED: ONDANSETRON 4MG/2ML VIAL (J2405) IV (01:15)
[2018-06-26] MEDS: AZITHROMYCIN INJ 500 MG, VIAL MATE ADAPTER 1 EACH in D5W 250 ML IV (03:10)
[2018-06-26] MEDS: IPRATROPIUM 0.5MG/ALBUTEROL 2.5MG INH SOL UD 3ML (DUONEB)(J7620) NEB ×4 (04:17→21:22)
[2018-06-26] MEDS: methylPREDNISolone INJ 125 MG/2 ML VIAL (J2930) IV ×3 (04:24→21:04)
[2018-06-26] MEDS: LEVOTHYROXINE 25MCG TABLET (0.025MG) PO (06:24)
[2018-06-26] MEDS: FOLIC ACID 1 MG TAB PO (08:10)
[2018-06-26] MEDS: CARVedilol 12.5 MG TAB PO ×2 (08:11→21:05)
[2018-06-26] MEDS: ASPIRIN 81 MG ENTERIC TAB PO (08:15)
[2018-06-26] MEDS: MEGESTROL SUSP 400 MG/10 ML UDC PO (08:15)
[2018-06-26] MEDS: HEPARIN 1,000 UNITS/ML 10ML VIAL (FOR RADIOLOGY& DIALYSIS ONLY) IV (10:15)
[2018-06-26 13:03] LABS: HEMATOCRIT 25.5 % (42.0-52.0); HEMOGLOBIN 8.2 g/dl (13.5-17.5)
[2018-06-26 13:52] LABS: FERRITIN 1279 NG/ML (26-388); IRON (FE) 52 UG/DL (65-175); PERCENT SATURATION 23.4 % (19.7-50.0); TOTAL IRON BINDING CAPACITY 222 UG/DL (250-450)
[2018-06-26 18:12] LABS: HEMATOCRIT 24.5 % (42.0-52.0); HEMOGLOBIN 7.9 g/dl (13.5-17.5)
[2018-06-26] MEDS: cefTRIAXone SOD 1 GM in D5W MINI-BAG PLUS 50 ML IV (21:04)
[2018-06-27] MEDS: AZITHROMYCIN INJ 500 MG, VIAL MATE ADAPTER 1 EACH in D5W 250 ML IV (00:17)
[2018-06-27] MEDS: IPRATROPIUM 0.5MG/ALBUTEROL 2.5MG INH SOL UD 3ML (DUONEB)(J7620) NEB ×5 (02:00→20:33)
[2018-06-27] MEDS: LEVOTHYROXINE 25MCG TABLET (0.025MG) PO (05:36)
[2018-06-27] MEDS: methylPREDNISolone INJ 125 MG/2 ML VIAL (J2930) IV (05:36)
[2018-06-27 06:35] LABS: HEMATOCRIT 22.7 % (42.0-52.0); HEMOGLOBIN 7.3 g/dl (13.5-17.5); MEAN CORPUSCULAR HEMOGLOBIN 32.2 pg (27.0-33.0); MEAN CORPUSCULAR HGB CONC 32.2 g/dl (32.0-36.5); PLATELET COUNT, AUTOMATED 187 10^3/uL (150-450); RED BLOOD COUNT 2.27 10^6/uL (4.30-6.10); RED CELL DISTRIBUTION WIDTH 19.5 % (11.5-14.5); WHITE BLOOD COUNT 16.4 10^3/uL (4.0-10.0)
[2018-06-27 06:56] LABS: ANION GAP 10 MEQ/L (8-16); BLOOD UREA NITROGEN 30 MG/DL (7-18); CALCIUM LEVEL 8.7 MG/DL (8.8-10.2); CARBON DIOXIDE LEVEL 28 MEQ/L (21-32); CHLORIDE LEVEL 97 MEQ/L (98-107); CREATININE FOR GFR 4.74 MG/DL (0.70-1.30); GLOMERULAR FILTRATION RATE 12.6 (>35); GLUCOSE, FASTING 131 MG/DL (70-100); POTASSIUM SERUM 4.4 MEQ/L (3.5-5.1); SODIUM LEVEL 135 MEQ/L (136-145)
[2018-06-27 08:06] LABS: TRANSFERRIN 184 mg/dL (200-370)
[2018-06-27] MEDS ORDERED: DARBEPOETIN 100 MCG/0.5 ML *DIALYSIS* SYRINGE (J0882) IV (10:15)
[2018-06-27] MEDS: MEGESTROL SUSP 400 MG/10 ML UDC PO (10:35)
[2018-06-27] MEDS: ASPIRIN 81 MG ENTERIC TAB PO (10:36)
[2018-06-27] MEDS: FOLIC ACID 1 MG TAB PO (10:36)
[2018-06-27] MEDS: CARVedilol 12.5 MG TAB PO ×2 (10:36→20:57)
[2018-06-28] MEDS: IPRATROPIUM 0.5MG/ALBUTEROL 2.5MG INH SOL UD 3ML (DUONEB)(J7620) NEB ×4 (01:03→21:01)
[2018-06-28 06:04] LABS: HEMATOCRIT 26.2 % (42.0-52.0); HEMOGLOBIN 8.3 g/dl (13.5-17.5); MEAN CORPUSCULAR HEMOGLOBIN 32.2 pg (27.0-33.0); MEAN CORPUSCULAR HGB CONC 31.7 g/dl (32.0-36.5); MEAN CORPUSCULAR VOLUME 101.6 fl (80.0-96.0); PLATELET COUNT, AUTOMATED 213 10^3/uL (150-450); RED BLOOD COUNT 2.58 10^6/uL (4.30-6.10); RED CELL DISTRIBUTION WIDTH 19.8 % (11.5-14.5); WHITE BLOOD COUNT 19.5 10^3/uL (4.0-10.0)
[2018-06-28 06:28] LABS: ANION GAP 11 MEQ/L (8-16); BLOOD UREA NITROGEN 52 MG/DL (7-18); CALCIUM LEVEL 8.9 MG/DL (8.8-10.2); CARBON DIOXIDE LEVEL 29 MEQ/L (21-32); CHLORIDE LEVEL 93 MEQ/L (98-107); CREATININE FOR GFR 6.42 MG/DL (0.70-1.30); GLOMERULAR FILTRATION RATE 8.8 (>35); GLUCOSE, FASTING 117 MG/DL (70-100); SODIUM LEVEL 133 MEQ/L (136-145)
[2018-06-28] MEDS: LEVOTHYROXINE 25MCG TABLET (0.025MG) PO (06:33)
[2018-06-28] MEDS: FOLIC ACID 1 MG TAB PO (07:55)
[2018-06-28] MEDS: CARVedilol 12.5 MG TAB PO ×2 (07:55→21:40)
[2018-06-28] MEDS: ASPIRIN 81 MG ENTERIC TAB PO (07:55)
[2018-06-28] MEDS: MEGESTROL SUSP 400 MG/10 ML UDC PO (07:56)
[2018-06-28 09:21] LABS: IMMEDIATE SPIN CROSSMATCH 1 2
[2018-06-28] MEDS: HEPARIN 1,000 UNITS/ML 10ML VIAL (FOR RADIOLOGY& DIALYSIS ONLY) IV (10:45)
[2018-06-28 12:42] LABS: C REACTIVE PROTEIN QUANTITATIV 1.83 MG/DL (0.00-0.30)
[2018-06-28 12:43] LABS: ERYTHROCYTE SEDIMENTATION RATE 43 mm/hr (0-30)
[2018-06-29] MEDS: IPRATROPIUM 0.5MG/ALBUTEROL 2.5MG INH SOL UD 3ML (DUONEB)(J7620) NEB ×2 (02:00→08:50)
[2018-06-29] MEDS: ACETAMINOPHEN TAB 650MG DOSE (2X325MG) PO (02:51)
[2018-06-29] MEDS: LEVOTHYROXINE 25MCG TABLET (0.025MG) PO (05:42)
[2018-06-29 05:56] LABS: HEMATOCRIT 28.3 % (42.0-52.0); HEMOGLOBIN 9.2 g/dl (13.5-17.5); MEAN CORPUSCULAR HEMOGLOBIN 32.2 pg (27.0-33.0); MEAN CORPUSCULAR HGB CONC 32.5 g/dl (32.0-36.5); PLATELET COUNT, AUTOMATED 157 10^3/uL (150-450); RED BLOOD COUNT 2.86 10^6/uL (4.30-6.10); WHITE BLOOD COUNT 11.8 10^3/uL (4.0-10.0)
[2018-06-29 06:25] LABS: ANION GAP 8 MEQ/L (8-16); BLOOD UREA NITROGEN 29 MG/DL (7-18); CALCIUM LEVEL 7.7 MG/DL (8.8-10.2); CARBON DIOXIDE LEVEL 30 MEQ/L (21-32); CHLORIDE LEVEL 99 MEQ/L (98-107); CREATININE FOR GFR 4.26 MG/DL (0.70-1.30); GLOMERULAR FILTRATION RATE 14.2 (>35); GLUCOSE, FASTING 95 MG/DL (70-100); POTASSIUM SERUM 4.2 MEQ/L (3.5-5.1); SODIUM LEVEL 137 MEQ/L (136-145)
[2018-06-29] MEDS: ASPIRIN 81 MG ENTERIC TAB PO (11:14)
[2018-06-29] MEDS: CARVedilol 12.5 MG TAB PO (11:15)
[2018-06-29] MEDS: FOLIC ACID 1 MG TAB PO (11:15)
[2018-06-29] MEDS: MEGESTROL SUSP 400 MG/10 ML UDC PO (11:21)
== END 2018-06-29 15:00 | disposition home health service (06) | DRG 291 ==
LOC: M ED INP 22:25 → M ED 22:24 → M MSPAV 06-26 03:43
PROC: 5A1D70Z Performance of Urinary Filtration, Intermittent, Less than 6 Hours Per Day (ICD-10-PCS; principal; 2018-06-26)
PROC: 30233N1 Transfusion of Nonautologous Red Blood Cells into Peripheral Vein, Percutaneous Approach (ICD-10-PCS; 2018-06-28)
DX: I13.2 Hypertensive heart and chronic kidney disease with heart failure and with stage 5 chronic kidney disease, or end stage renal disease (principal); I50.33 Acute on chronic diastolic (congestive) heart failure; N18.6 End stage renal disease; N25.81 Secondary hyperparathyroidism of renal origin; E03.9 Hypothyroidism, unspecified; D63.1 Anemia in chronic kidney disease; Z86.73 Personal history of transient ischemic attack (TIA), and cerebral infarction without residual deficits; Z96.0 Presence of urogenital implants; Z99.2 Dependence on renal dialysis; Z96.649 Presence of unspecified artificial hip joint; Z95.828 Presence of other vascular implants and grafts; Z87.891 Personal history of nicotine dependence; Z79.82 Long term (current) use of aspirin; Z88.2 Allergy status to sulfonamides; Z88.1 Allergy status to other antibiotic agents; Z79.51 Long term (current) use of inhaled steroids; Z79.899 Other long term (current) drug therapy

== ENCOUNTER 2018-07-02 09:37 | Emergency (ER) | payer MEDICARE, MEDICAID ==
[2018-07-02] MEDS: CARVedilol 12.5 MG TAB PO (10:11)
[2018-07-02 10:28] LABS: HEMATOCRIT 32.5 % (42.0-52.0); HEMOGLOBIN 10.1 g/dl (13.5-17.5); MEAN CORPUSCULAR HEMOGLOBIN 32.4 pg (27.0-33.0); MEAN CORPUSCULAR HGB CONC 31.1 g/dl (32.0-36.5); MEAN CORPUSCULAR VOLUME 104.2 fl (80.0-96.0); PLATELET COUNT, AUTOMATED 190 10^3/uL (150-450); RED BLOOD COUNT 3.12 10^6/uL (4.30-6.10); WHITE BLOOD COUNT 9.5 10^3/uL (4.0-10.0)
[2018-07-02 10:31] LABS: ADD MANUAL DIFFER YES; DIFF SLIDE NUMBER 79; POS COUNT POS FLAG; POSITIVE MORPH POS FLAG
[2018-07-02 10:54] LABS: ALBUMIN 2.8 GM/DL (3.2-5.2); ALBUMIN/GLOBULIN RATIO 1.04 (1.00-1.93); ALKALINE PHOSPHATASE 95 U/L (45-117); ALT/SGPT 30 U/L (12-78); ANION GAP 9 MEQ/L (8-16); AST/SGOT 20 U/L (7-37); BILIRUBIN,TOTAL 0.4 MG/DL (0.2-1.0); BLOOD UREA NITROGEN 52 MG/DL (7-18); CALCIUM LEVEL 8.2 MG/DL (8.8-10.2); CARBON DIOXIDE LEVEL 32 MEQ/L (21-32); CHLORIDE LEVEL 102 MEQ/L (98-107); CREATININE FOR GFR 7.35 MG/DL (0.70-1.30); GLOMERULAR FILTRATION RATE 7.6 (>35); GLUCOSE, FASTING 114 MG/DL (70-100); POTASSIUM SERUM 4.4 MEQ/L (3.5-5.1); SODIUM LEVEL 143 MEQ/L (136-145); TOTAL PROTEIN 5.5 GM/DL (6.4-8.2)
[2018-07-02 11:00] LABS: ANISOCYTOSIS 2+; BANDS 1 % (< 11); EOSINOPHILS 1 % (0-5); LYMPHOCYTES 16 % (16-52); METAMYELOCYTES 3 % (0-0); MONOCYTES 17 % (0-8); MYELOCYTES 1 % (0-0); NEUTROPHILS 61 % (35-75); PLATELET ESTIMATE NORMAL (NORMAL)
[2018-07-02 11:01] LABS: OVALOCYTES 1+
== END 2018-07-02 12:56 | disposition home or self-care (01) ==
LOC: M ED 09:37
DX: N18.6 End stage renal disease (principal); Z99.2 Dependence on renal dialysis; R60.0 Localized edema; J44.9 Chronic obstructive pulmonary disease, unspecified; I50.9 Heart failure, unspecified; E07.9 Disorder of thyroid, unspecified; Z79.899 Other long term (current) drug therapy; Z79.890 Hormone replacement therapy; Z79.82 Long term (current) use of aspirin; Z88.1 Allergy status to other antibiotic agents; Z88.2 Allergy status to sulfonamides; Z88.8 Allergy status to other drugs, medicaments and biological substances; Z87.891 Personal history of nicotine dependence
CPT/HCPCS: 71046

== ENCOUNTER 2018-07-03 13:12 | Emergency (ER) | payer MEDICARE, MEDICAID ==
[2018-07-03 13:48] LABS: VENOUS BASE EXCESS 4.6 (-2.0-2.0); VENOUS HCO3 31.6 MEQ/L (23.0-27.0); VENOUS O2 SATURATION 64.5 % (60.0-80.0); VENOUS PARTIAL PRESSURE CO2 59.7 mmHg (38.0-50.0); VENOUS PARTIAL PRESSURE O2 38.3 mmHg (30.0-50.0); VENOUS PH 7.342 UNITS (7.330-7.430); VENOUS STANDARD HCO3 27.9 MEQ/L; VENOUS TOTAL CO2 33.5 MEQ/L (24.0-28.0)
[2018-07-03 13:52] LABS: BASO % 0.2 % (0.0-1.0); EOS # 0.2 10^3/uL (0.0-0.50); EOS % 1.7 % (0.0-3.0); HEMATOCRIT 31.9 % (42.0-52.0); HEMOGLOBIN 10.1 g/dl (13.5-17.5); IMMATURE GRANULOCYTE % 4.9 % (0-3.0); LYMPH # 0.6 10^3/uL (1.5-4.5); LYMPH % 6.3 % (24.0-44.0); MEAN CORPUSCULAR HEMOGLOBIN 33.1 pg (27.0-33.0); MEAN CORPUSCULAR HGB CONC 31.7 g/dl (32.0-36.5); MEAN CORPUSCULAR VOLUME 104.6 fl (80.0-96.0); MONO # 1.8 10^3/uL (0.0-0.8); NEUTROPHILS # 6.8 10^3/uL (1.8-7.7); NEUTROPHILS % 68.9 % (36.0-66.0); PLATELET COUNT, AUTOMATED 194 10^3/uL (150-450); RED BLOOD COUNT 3.05 10^6/uL (4.30-6.10); RED CELL DISTRIBUTION WIDTH 22.2 % (11.5-14.5); WHITE BLOOD COUNT 9.9 10^3/uL (4.0-10.0)
[2018-07-03 14:33] LABS: ALBUMIN 3.1 GM/DL (3.2-5.2); ALBUMIN/GLOBULIN RATIO 1.11 (1.00-1.93); ALKALINE PHOSPHATASE 98 U/L (45-117); ALT/SGPT 26 U/L (12-78); ANION GAP 9 MEQ/L (8-16); AST/SGOT 23 U/L (7-37); BILIRUBIN,DIRECT 0.1 MG/DL (0.0-0.2); BILIRUBIN,TOTAL 0.4 MG/DL (0.2-1.0); BLOOD UREA NITROGEN 28 MG/DL (7-18); CALCIUM LEVEL 8.4 MG/DL (8.8-10.2); CARBON DIOXIDE LEVEL 32 MEQ/L (21-32); CHLORIDE LEVEL 99 MEQ/L (98-107); CPK CREATINE PHOSPHOKINASE 44 U/L (39-308); CREATININE FOR GFR 4.82 MG/DL (0.70-1.30); GLOMERULAR FILTRATION RATE 12.3 (>35); GLUCOSE, FASTING 105 MG/DL (70-100); MB/CK RELATIVE INDEX 5.23 (< OR =4); POTASSIUM SERUM 4.1 MEQ/L (3.5-5.1); SODIUM LEVEL 140 MEQ/L (136-145); TOTAL PROTEIN 5.9 GM/DL (6.4-8.2); TROPONIN I 0.05 NG/ML (< 0.10)
[2018-07-03] MEDS: hydrOXYzine 25 MG TAB PO (15:15)
[2018-07-03 18:12] LABS: CPK CREATINE PHOSPHOKINASE 25 U/L (39-308); TROPONIN I 0.05 NG/ML (< 0.10)
== END 2018-07-03 19:00 | disposition home or self-care (01) ==
LOC: M ED 13:12
DX: I95.1 Orthostatic hypotension (principal); I44.0 Atrioventricular block, first degree; N18.6 End stage renal disease; Z99.2 Dependence on renal dialysis; I50.9 Heart failure, unspecified; I25.2 Old myocardial infarction; I10 Essential (primary) hypertension; E78.00 Pure hypercholesterolemia, unspecified; K44.9 Diaphragmatic hernia without obstruction or gangrene; K57.30 Diverticulosis of large intestine without perforation or abscess without bleeding; N40.1 Benign prostatic hyperplasia with lower urinary tract symptoms; Z85.47 Personal history of malignant neoplasm of testis; E03.9 Hypothyroidism, unspecified; G89.29 Other chronic pain; M54.9 Dorsalgia, unspecified; H40.9 Unspecified glaucoma; Z87.891 Personal history of nicotine dependence; Z79.82 Long term (current) use of aspirin; Z79.899 Other long term (current) drug therapy; Z88.1 Allergy status to other antibiotic agents
CPT/HCPCS: 71045

== ENCOUNTER 2018-08-04 05:35 | Emergency (ER) | payer MEDICARE, MEDICAID ==
[2018-08-04] MEDS: IPRATROPIUM 0.5MG/ALBUTEROL 2.5MG INH SOL UD 3ML (DUONEB)(J7620) NEB ×3 (06:56→07:41)
[2018-08-04] MEDS: dexameTHASONE 20 MG/5 ML VIAL (J1100) IV (07:07)
[2018-08-04] MEDS: cloNIDine 0.1 MG TAB PO (07:07)
== END 2018-08-04 08:18 | disposition home or self-care (01) ==
LOC: M ED 05:35
DX: J40 Bronchitis, not specified as acute or chronic (principal); J44.9 Chronic obstructive pulmonary disease, unspecified; I10 Essential (primary) hypertension; E03.9 Hypothyroidism, unspecified; N19 Unspecified kidney failure; Z99.2 Dependence on renal dialysis; Z79.899 Other long term (current) drug therapy; Z79.82 Long term (current) use of aspirin; Z88.1 Allergy status to other antibiotic agents; Z88.2 Allergy status to sulfonamides; Z88.8 Allergy status to other drugs, medicaments and biological substances; Z87.891 Personal history of nicotine dependence
CPT/HCPCS: J1100

== ENCOUNTER → 2018-08-10 | Outpatient (CLI) | payer MEDICARE ==
[~2018-08-10] MED LIST changes: +ALB2.5NEB INH; -AMLO5TAB2 PO; +AMLO5TAB6 PO; -ASPI81TA18 PO; +ASPI81TA52 PO; +AZIT-12 PO; +BRIM0.2S13 OU; +CARV12.5 PO; +CARV25TA PO; +CARV3.12 PO; +CARV6.25 PO; +CEFD1CAP8 PO; +CEFD300CAP PO; +CEPH250T PO; -DRIS50002 PO; +DRIS50003 PO; +DULC10SU2 PR; +ENEM1ENE4 PR; +FOLI1TAB11 PO; -FOLI1TAB4 PO; +FURO40TA2 PO; +IMOD2TAB16 PO; +IPRA0.00 INH; +ISOVUE-300 61% 50ML VIAL (Q9967) As Ordered ONE; -LEVA1TAB PO; +LEVA250T13 PO; +LIDOCAINE 2% MDV 20 ML VIAL As Ordered ONE; -LOSA100T36 PO; +LOSA100T50 PO; +MEGACE PO; +MEGE40SU5 PO; +MEGESTROL PO; +MIDO5TA PO; +MILK120011 PO; +NEPR1LIQ2 PO; +NORCOTAB PO; +PRED10TA2 PO; +PRED20TA PO; +SEVE0.8P PO; +TUBE5INJ ID; +VELT1POW PO; +VITA1CAP25 PO
--- NOTE | 2018-09-13 07:24 | REPIR ---
DATE OF PROCEDURE: 08/10/2018 ATTENDING SURGEON: Dr. Regina Augustin LEGAL RESEARCHER: Chel Noonan and Anabel Orourke PREOPERATIVE DIAGNOSIS: End-stage renal disease, dysfunctional left radiocephalic arteriovenous fistula. POSTOPERATIVE DIAGNOSIS: End-stage renal disease, dysfunctional left radiocephalic arteriovenous fistula. PROCEDURE: Left radiocephalic arteriovenous fistulogram, retrograde left radial artery angiogram. INDICATION: The patient is an 87-year-old male with a left radiocephalic arteriovenous fistula who has had difficulty with cannulation as well as excessive bleeding on decanalization. There is mild pulsatility within the fistula ad the patient will undergo a fistulogram with possible angioplasty stent and/or atherectomy. Risks, benefits and alternative treatment options were discussed with the patient. The procedure was described and explained to the patient in detail including drawing of pictures demonstrating the procedure and the anatomy. Alternative treatment options included but were not limited to no intervention. Risks included but were not limited to, infection, bleeding, loss of arteriovenous access, steal syndrome, possible need for open surgical intervention, cerebrovascular accident, myocardial infarction, pulmonary embolus, deep vein thrombosis (DVT), loss of limb, loss to life, poor outcome and poor results. Benefits included but were not limited to, continued functioning of the fistula with prevention of loss of the arteriovenous access and improvement in functioning. All the patient's questions were answered. The patient voiced his understanding of the risks, benefits and alternative treatment options and agrees to proceed. No guarantees or promises were made to the patient regarding the procedure and/or outcome of the procedure. ANESTHESIA: Local with 1.5 mL of 2% lidocaine. FLUORO TIME: 0.1 minutes. CONTRAST: 2 mL of Isovue-300. HEPARIN: None. COMPLICATIONS: None. DRAINS: None. SPECIMENS: None. IMPLANT: None. DESCRIPTION OF PROCEDURE: The patient was taken to the angiography suite, placed supine on the angiography room table and then prepped and draped in a standard surgical fashion. The left radiocephalic arteriovenous fistula was cannulated with a micropuncture needle after anesthetizing the overlying skin with 2% lidocaine. The micropuncture wire was advanced through the micropuncture needle which was upsized to a micropuncture sheath. The fistulogram was performed through the micropuncture sheath as well as the retrograde radial artery angiogram and this showed no intervention was required. The sheath was removed and manual compression applied at the puncture site for hemostasis. Dressings were then applied. The patient tolerated the procedure well. All instrument, sponge and needle counts were correct at the end the case. There were no complications. Dr. Augustin was present for and directed the entire case. The patient was transferred to the holding area and subsequently discharged in stable condition. The results and description of the procedure were discussed with the patient in the postoperative holding area and all of his questions answered. RADIOLOGIC SUPERVISION INTERPRETATION: The left radiocephalic arteriovenous fistulogram showed the cephalic vein to be widely patent to the antecubital fossa where there was dual outflow into the upper arm essentially with no stenosis noted. The retrograde radial artery angiogram showed the remainder of cephalic vein to be patent to the radial artery with good flow in the radial artery proximal and distal to the arteriovenous anastomosis and no stenosis at the arteriovenous anastomosis.
== END | disposition home or self-care (01) ==
LOC: M IRPRO 09:16
PROVIDERS: ATTEND Surgery Vascular Surgery
DX: T82.838A Hemorrhage due to vascular prosthetic devices, implants and grafts, initial encounter (principal); N18.6 End stage renal disease
CPT/HCPCS: 36215; 36901; 75710; C1894; Q9967

== ENCOUNTER 2018-08-11 16:09 | Emergency (ER) | payer MEDICARE, MEDICAID ==
[~2018-08-11] VITALS: Ht 170.2 cm; Wt 63.6 kg
[~2018-08-11 16:09] MED LIST changes: +AMLO5TAB4 PO; -AMLO5TAB6 PO; -BRIM0.2S13 OU; -CARV25TA PO; -DULC10SU2 PR; -ENEM1ENE4 PR; -FOLI1TAB11 PO; +FOLI1TAB5 PO; -FURO40TA2 PO; -ISOVUE-300 61% 50ML VIAL (Q9967) As Ordered ONE; -LIDOCAINE 2% MDV 20 ML VIAL As Ordered ONE; +LOSA-4 PO; -LOSA100T50 PO; -MEGE40SU5 PO; -MILK120011 PO; -NEPR1LIQ2 PO; -SEVE0.8P PO; -TUBE5INJ ID; -VELT1POW PO
[2018-08-11] MEDS ORDERED: MEGE40SU5 (16:29)
--- NOTE | 2018-08-11 16:53 | REP ---
Clinical: Cough/dyspnea . Comparison: 08/04/2018 . Findings: The mediastinum and cardiac silhouette are stable and within normal limits for portable technique. The lung jones demonstrates subtle chronic interstitial changes without acute consolidation, effusion, or pneumothorax. Skeletal structures are intact. Impression: No acute cardiopulmonary process appreciated. Electronically Signed by Adonis Aleman MD 08/11/2018 04:44 P
[2018-08-11] MEDS ORDERED: ACETAMINOPHEN TAB 650MG DOSE (2X325MG) PO ONE (17:00)
[2018-08-11 17:30] LABS: VENOUS BASE EXCESS 3.5 (-2.0-2.0); VENOUS HCO3 28.9 MEQ/L (23.0-27.0); VENOUS O2 SATURATION 58.5 % (60.0-80.0); VENOUS PARTIAL PRESSURE CO2 47.4 mmHg (38.0-50.0); VENOUS PARTIAL PRESSURE O2 33.5 mmHg (30.0-50.0); VENOUS PH 7.403 UNITS (7.330-7.430); VENOUS STANDARD HCO3 26.7 MEQ/L; VENOUS TOTAL CO2 30.4 MEQ/L (24.0-28.0)
[2018-08-11 17:33] LABS: BASO % 0.3 % (0.0-1.0); EOS # 0.3 10^3/uL (0.0-0.50); HEMATOCRIT 34.7 % (42.0-52.0); LYMPH # 0.8 10^3/uL (1.5-4.5); LYMPH % 6.7 % (24.0-44.0); MEAN CORPUSCULAR HEMOGLOBIN 32.1 pg (27.0-33.0); MEAN CORPUSCULAR HGB CONC 31.7 g/dl (32.0-36.5); MEAN CORPUSCULAR VOLUME 101.2 fl (80.0-96.0); NEUTROPHILS # 7.6 10^3/uL (1.8-7.7); NEUTROPHILS % 66.9 % (36.0-66.0); PLATELET COUNT, AUTOMATED 289 10^3/uL (150-450); RED BLOOD COUNT 3.43 10^6/uL (4.30-6.10); WHITE BLOOD COUNT 11.4 10^3/uL (4.0-10.0)
[2018-08-11 17:53] LABS: INR 0.92; PROTHROMBIN TIME 12.4 SECONDS (12.1-14.4)
[2018-08-11 18:00] LABS: MONO # 2.4 10^3/uL (0.0-0.8)
[2018-08-11 18:02] LABS: ALBUMIN 3.1 GM/DL (3.2-5.2); BILIRUBIN,DIRECT 0.2 MG/DL (0.0-0.2); BILIRUBIN,TOTAL 0.4 MG/DL (0.2-1.0); CALCIUM LEVEL 8.8 MG/DL (8.8-10.2); CREATININE FOR GFR 3.43 MG/DL (0.70-1.30); GLOMERULAR FILTRATION RATE 18.2 (>35); THYROID STIMULATING HORMONE 1.61 uIU/ML (0.358-3.740); TOTAL PROTEIN 6.5 GM/DL (6.4-8.2); TROPONIN I 0.04 NG/ML (< 0.10)
[2018-08-11 18:52] VITALS: BP 162/75
--- NOTE | 2018-08-12 19:57 | ECGEPIP ---
Stationary ECG Study [facility] - ED Test Date: 2018-08-11 Pat Name: MELI COFFMAN Department: Room: - Gender: M Vp Genetic: kermit : 1930 Requested By: Joan Valenzuela Order Number: [id number] Reading MD: Yazmin Leyva Measurements Intervals [place] Rate: 93 P: 71 MO: 204 QRS: -9 QRSD: 94 T: 83 QT: 357 QTc: 445 Interpretive Statements SINUS RHYTHM NONSPECIFIC T-WAVE ABNORMALITY LAD CW 08/04/[address] T WAVE CHANGES Electronically Signed On 08-12-2018 19:57:08 EST by Yazmin Leyva
== END 2018-08-11 19:08 | disposition home or self-care (01) ==
LOC: M ED 16:09
DX: R07.89 Other chest pain (principal); I50.9 Heart failure, unspecified; I25.10 Atherosclerotic heart disease of native coronary artery without angina pectoris; I10 Essential (primary) hypertension; J44.9 Chronic obstructive pulmonary disease, unspecified; Z99.2 Dependence on renal dialysis; K44.9 Diaphragmatic hernia without obstruction or gangrene; Z87.891 Personal history of nicotine dependence; Z79.899 Other long term (current) drug therapy; Z88.1 Allergy status to other antibiotic agents

== ENCOUNTER 2018-08-28 14:12 | Inpatient (IN) | payer MEDICARE, MEDICAID ==
[~2018-08-28] VITALS: Ht 167.6 cm; Wt 60.4 kg
[~2018-08-28 14:12] MED LIST changes: -AMLO5TAB4 PO; +AMLO5TAB6 PO; +FOLI1TAB11 PO; -FOLI1TAB5 PO; -LOSA-4 PO; +LOSA100T50 PO; +MEGE40SU5 PO
[2018-08-28] MEDS ORDERED: BRIM0.2S13 OU (14:33)
--- NOTE | 2018-08-28 14:56 | REP ---
Chest one-view HISTORY: Altered mental status Comparison: 08/11/2018 An increase in interstitial markings is present in the lungs consistent with chronic interstitial change. The cardiac silhouette is enlarged. The pulmonary vasculature is normal in appearance. Impression: 1. Chronic interstitial change. 2. Cardiomegaly. Electronically Signed by Timur Jurado MD 08/28/2018 02:46 P
[2018-08-28 15:12] LABS: BASO % 0.3 % (0.0-1.0); EOS # 1.3 10^3/uL (0.0-0.50); HEMATOCRIT 36.2 % (42.0-52.0); HEMOGLOBIN 11.5 g/dl (13.5-17.5); LYMPH % 8.4 % (24.0-44.0); MEAN CORPUSCULAR HEMOGLOBIN 32.1 pg (27.0-33.0); MEAN CORPUSCULAR HGB CONC 31.8 g/dl (32.0-36.5); MEAN CORPUSCULAR VOLUME 101.1 fl (80.0-96.0); MONO # 1.9 10^3/uL (0.0-0.8); MONO % 15.6 % (0.0-5.0); NEUTROPHILS # 7.5 10^3/uL (1.8-7.7); NEUTROPHILS % 62.4 % (36.0-66.0); PLATELET COUNT, AUTOMATED 194 10^3/uL (150-450); RED BLOOD COUNT 3.58 10^6/uL (4.30-6.10)
[2018-08-28 15:45] LABS: ALBUMIN 3.1 GM/DL (3.2-5.2); ALT/SGPT 15 U/L (12-78); BILIRUBIN,DIRECT 0.2 MG/DL (0.0-0.2); BILIRUBIN,TOTAL 0.6 MG/DL (0.2-1.0); BLOOD UREA NITROGEN 21 MG/DL (7-18); CALCIUM LEVEL 8.5 MG/DL (8.8-10.2); CARBON DIOXIDE LEVEL 33 MEQ/L (21-32); CHLORIDE LEVEL 99 MEQ/L (98-107); CPK CREATINE PHOSPHOKINASE 61 U/L (39-308); CREATININE FOR GFR 5.69 MG/DL (0.70-1.30); ETHYL ALCOHOL (ETHANOL) < 0.003 % (0.000-0.010); GLOMERULAR FILTRATION RATE 10.2 (>35); GLUCOSE, FASTING 81 MG/DL (70-100); MB/CK RELATIVE INDEX 5.25 (< OR =4); POTASSIUM SERUM 3.8 MEQ/L (3.5-5.1); SODIUM LEVEL 140 MEQ/L (136-145); TOTAL PROTEIN 6.6 GM/DL (6.4-8.2); TROPONIN I 0.09 NG/ML (< 0.10)
[2018-08-28 15:50] LABS: AMPHETAMINES LEVEL URINE NEGATIVE (NEGATIVE); BARBITURATES URINE NEGATIVE (NEGATIVE); BENZODIAZEPINES URINE NEGATIVE (NEGATIVE); CANNABINOIDS URINE NEGATIVE (NEGATIVE); COCAINE METABOLITE URINE NEGATIVE (NEGATIVE); METHADONE URINE NEGATIVE (NEGATIVE); OPIATES URINE NEGATIVE (NEGATIVE); PHENCYCLIDINE URINE NEGATIVE (NEGATIVE)
[2018-08-28 15:59] LABS: OSMOLALITY SERUM 297 MOSM/KG (280-301)
--- NOTE | 2018-08-28 16:55 | REP ---
CT Head without contrast HISTORY: Confusion COMPARISON: 04/07/2018 Areas of decreased attenuation are present in the periventricular and subcortical white matter. This represents small-vessel ischemic disease. There is no intraparenchymal hemorrhage, acute infarct, mass or midline shift. The ventricular system and cortical sulci as well as subarachnoid space in the posterior fossa are dilated consistent with moderate volume loss. There is no extra cerebral collection. There is no fracture. The visualized sinuses are clear. Punctate metallic densities are present in the globes. IMPRESSION: 1. Small vessel ischemic disease. 2. Moderate volume loss. Electronically Signed by Timur Jurado MD 08/28/2018 04:46 P
[2018-08-28] MEDS ORDERED: cefTRIAXone SOD 1 GM in D5W MINI-BAG PLUS 50 ML IV ONE (17:45)
[2018-08-28] MEDS ORDERED: IPRATROPIUM 0.5MG/ALBUTEROL 2.5MG INH SOL UD 3ML (DUONEB)(J7620) INH PRN (18:30)
[2018-08-28] MEDS ORDERED: LOPERAMIDE 2 MG CAP PO PRN (18:30)
--- NOTE | 2018-08-28 19:39 | HPEPDOC ---
General Date of Admission 08/28/2018 Primary Care Physician: JOSTIN TIERNEY MD @ Attending Physician: TALON LUCAS MD Chief Complaint The patient is a 87-year-old male admitted with a reason for visit of AMS. Source: Patient, Family, RN notes reviewed, Old records Exam Limitations: Hard of hearing, Mild cognitive slowing History of Present Illness Mr. Dubois is an 87-year-old male presents to [facility] emergency Department with altered mental status. His daughter and healthcare proxy is at bedside during evaluation. Past medical history significant for end-stage renal disease on hemodialysis, hy pothyroidism, glaucoma, chronic obstructive pulmonary disease, left ventricular diastolic dysfunction with a left ventricular ejection fraction 60-65%. Patient is significantly hard of hearing. Most of the history is obtained from daughter at bedside. Daughter states the patient has hemodialysis Tuesday, Tuesday, Tuesday. She noted that this morning prior to hemodialysis he was acting "weird." He did she notes that he has a distal right that he uses a back barrel washer, but he was using various other devices to attempt to scratch his back which she saw as a sign of confusion. Patient went to dialysis and during dialysis hold out his dialysis catheter. There was significant blood loss over his clothing. Patient does not recall the event. Daughter states the patient has a history of left partial hip replacement, but over the last 3-4 days has been having increased difficulty with his left hip to the point that he has pain with walking. He does use a walker at home. Patient states he does feel somewhat short of breath and has a nonproductive cough. He has some chronic diarrhea for which she takes Imodium as needed. No fever, night sweats, chills. Does not feel nauseous or does not vomiting. Has no abdominal pain. Patient does not describe any lower pelvic pain nor does he describe any discharge or leakage around his chronic Posadas catheter. Daughter states that the catheter is changed monthly at urology. 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 He is unable to ascertain where he is or why he is in the hospital. Patient's daughter does state that he lives independently with her living in the same complex a couple [address] down. She does attend meals with him, but would like potential placement. Emergency department evaluation reveals tachycardia with hypertensive urgency. Has minimal leukocytosis of 12. Mild lactic acidosis of 2.2. Chest x-ray personally reviewed reveals pulmonary edema, but no consolidations. Head CT is negative. Urinalysis is positive. Urine and blood cultures are pending. Hospital service was consulted and patient was admitted for further medical management. Home Medications Scheduled (Icaps) 1 Cap Cap, 1 CAP PO DAILY, (Reported) (Mandie-Musa) 1 Tab Tab, 1 TAB PO QPM, (Reported) Aspirin (Aspirin EC) 81 Mg Tab, 81 MG PO DAILY, (Reported) Brimonidine Tartrate (Brimonidine Tartrate) 0.2 % Bel, 1 DROP OU BID, (Reported) Carvedilol (Carvedilol) 12.5 Mg Tab, 12.5 MG PO BID, (Reported) TAKES IF BP (S) IS OVER 140 Cholecalciferol (Vitamin D3) 50,000 Unit Cap, 50,000 UNIT PO Q2WK, (Reported) TAKES ON THE AND TH OF THE MONTH Folic Acid (Folic Acid) 1 Mg Tab, 1 MG PO DAILY, (Reported) Levothyroxine Sodium (Synthroid) 25 Mcg Tab, 25 MCG PO DAILY, (Reported) Megestrol Acetate (Megestrol Acetate) 40 Mg/Ml Ashley, 5 ML PO DAILY, (Reported) Midodrine HCl (Midodrine HCl) 5 Mg Tab, 5 MG PO DAILY, (Reported) Sevelamer Carbonate (Renvela) 800 Mg Tab, 1,600 MG PO WM, (Reported) Travoprost (Travatan Z) 50 Drop/2.5 Ml Soln, 1 DROP OU QHS, (Reported) Scheduled PRN Acetaminophen (Tylenol Extra Strength) 500 Mg Tab, 1,000 MG PO Q6H PRN for PAIN, (Reported) Albuterol/Ipratropium (Ipratropium [place]/Albut 0.5-2.5 (3) mg/3Ml) 1 Bel Bel, 1 INH INH Q6H PRN for SHORTNESS OF BREATH, (Reported) Loperamide Hcl (Imodium A-D) 2 Mg Tab, 2 MG PO PRN PRN for DIARRHEA, (Reported) Allergies Coded Allergies: Ciprofloxacin (Verified Adverse Reaction, Mild, metabolic encephalopathy, 08/28/18) Sulfamethoxazole w/Trimethoprim (Unverified Adverse Reaction, Mild, METABOLIC ENCEPHALOPATHY, 08/28/18) Past Medical History Medical History 1. End-stage renal disease on hemodialysis Tuesday, Tuesday, Tuesday 2. Hypothyroidism 3. Glaucoma 4. Chronic obstructive pulmonary disease 5. Left ventricular diastolic dysfunction with a left ventricular ejection fraction 60-65% 6. History of cerebrovascular accident 7. Chronic indwelling urinary Posadas catheter 8. History of anemia Surgical History 1. Left femoral head hemiarthroplasty 2. EGD 3. Colonoscopy 4. Bilateral cataracts 5. Right hemodialysis catheter placement 6. Testicular removal Family History Per daughter, father is , but at unknown age and from unknown etiology. Mother is in her 90s from Alzheimer's dementia. Patient has a younger brother who is alive and healthy. Social History * Smoker: Denies Alcohol: Denies Drugs: denies Patient lives independently and uses a walker for ambulation. He resides in the same complex as his daughter who is his healthcare proxy. Daughter visits with him 3 times daily for meals. He does not use tobacco products he does not consume alcohol. He does not use illicit drugs. There are no pets in the home. Patient has 5 children. A son who is in his 50s from complications related to scoliosis. There are 2 surviving daughters and 2 surviving sons who are all alive and healthy. Review of Systems Constitutional: Denies: Chills, Fever, Night Sweats, Weakness Eyes: Denies: Vision change ENT: Denies: Head Aches, Dysphagia, Sinus Congestion, Post Nasal Drip, Sore Throat, Epistaxis Skin: Denies: Rash, Lesions, Bruising Pulmonary: Reports: Dyspnea, Cough Cardiovascular: Denies: Chest Pain, Orthopnea, Paroxysmal Noc. Dyspnea, Edema, Lt Headedness Gastrointestinal: Reports: Diarrhea (chronic); Denies: Nausea, Vomiting, Abdominal Pain, Constipation, Melena, Hematochezia Genitourinary: Reports: Other Symptoms (chronic urinary Posadas catheter); Denies: Dysuria, Frequency, Incontinence, Hematuria Hematologic: Denies: Bruising, Bleeding Excessively Musculoskeletal: Denies: Neck Pain, Back Pain, Joint Pain, Muscle Pain Neurological: Denies: Weakness, Numbness Physical Examination General Exam: Positive: Alert, Cooperative, No Acute Distress Eye Exam: Positive: PERRLA, Conjunctiva & lids normal, EOMI; Negative: Sclera icteric, Ptosis ENT Exam: Positive: Mucous membr. moist/pink, Pharynx Normal, Tongue Midline, Nares Patent; Negative: Atraumatic, Pharyngeal Edema Neck Exam: Positive: Supple; Negative: JVD, thyromegaly, Lymphadenopathy Chest Exam: Positive: Rales (left >right), Diminished; Negative: Clear to auscultation, Normal air movement Heart Exam: Positive: Rate Normal, Regular Rhythm, Normal S1, Normal S2; Negative: Gallops, Murmurs, Rubs Abdomen Exam: Positive: BS Hypoactive, Soft; Negative: Tenderness, Hepatospenomegaly, Mass, Hernia Extremity Exam: Positive: Edema (+12 pitting edema noted in right lower extremity), Normal pulses, Other (left-sided forearm AV fistula with palpable thrill and bruit); Negative: Clubbing, Cyanosis, Tenderness Skin Exam: Positive: Rash (left lower extremity), Other skin issue (excoriations to left lower extremity) Neuro Exam: Positive: Cranial Nerves 3-12 NL Psych Exam: Positive: Oriented x 3 (name, date of , and 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 CT head without contrast on 08/28/2018 - small vessel ischemic disease, moderate volume loss. Vital Signs Vital Signs Date Time Temp Pulse Resp B/P (MAP) Pulse Ox O2 Delivery O2 Flow Rate FiO2 08/28/18 19:00 20 181/84 (116) 98 Room Air 08/28/18 18:57 96 08/28/18 14:27 98.4 Height (in): 66 Laboratory Data Labs 24H Laboratory Tests 2 08/28/18 14:47: Bedside Glucose (Misc Panel) 85 08/28/18 14:56: Immature Granulocyte % (Auto) 2.3, White Blood Count 12.0H, Red Blood Count 3.58L, Hemoglobin 11.5L, Hematocrit 36.2L, Mean Corpuscular Volume 101.1H, Mean Corpuscular Hemoglobin 32.1, Mean Corpuscular Hemoglobin Concent 31.8L, Red Cell Distribution Width 18.9H, Platelet Count 194, Neutrophils (%) (Auto) 62.4, Lymphocytes (%) (Auto) 8.4L, Monocytes (%) (Auto) 15.6H, Eosinophils (%) (Auto) 11.0H, Basophils (%) (Auto) 0.3, Neutrophils # (Auto) 7.5, Lymphocytes # (Auto) 1.0L, Monocytes # (Auto) 1.9H, Eosinophils # (Auto) 1.3H, Basophils # (Auto) 0.0, Nucleated Red Blood Cells % (auto) 0.2H, Anion Gap 8, Glomerular Filtration Rate 10.2L, Osmolality 297, Lactic Acid Level 2.2*H, Calcium Level 8.5L, Aspartate Amino Transf (AST/SGOT) 15, Alanine Aminotransferase (ALT/SGPT) 15, Alkaline Phosphatase 120H, Total Bilirubin 0.6, Direct Bilirubin 0.2, Ammonia < 10, Total Creatine Kinase 61, Creatine Kinase MB 3.0, Creatine Kinase MB Relative Index 5.25H, Troponin I 0.09, Total Protein 6.6, Albumin 3.1L, Albumin/Globulin Ratio 0.89L, Thyroid Stimulating Hormone (TSH) 1.360, Ethyl Alcohol Level < 0.003 08/28/18 15:19: Urine Color MARY, Urine Appearance TURBIDH, Urine pH 8.0, Urine Specific [place] 1.012, Urine Protein 3+H, Urine Glucose (UA) NEGATIVE, Urine Ketones NEGATIVE, Urine Blood 1+H, Urine Nitrite NEGATIVE, Urine Bilirubin NEGATIVE, Urine Urobilinogen 0.2, Urine Leukocyte Esterase 3+H, Urine WBC (Auto) 157H, Urine RBC (Auto) 110H, Urine Hyaline Casts (Auto) 0, Urine Bacteria (Auto) 3+H, Urine Squamous Epithelial Cells 0, Urine Mucus (Auto) LARGE, Urine Sperm (Auto) , Urine Amphetamines Screen NEGATIVE, Urine Benzodiazepines Screen NEGATIVE, Urine Opiates Screen NEGATIVE, Urine Methadone Screen NEGATIVE, Urine Barbiturates Screen NEGATIVE, Urine Phencyclidine Screen NEGATIVE, Urine Cocaine Metabolite Screen NEGATIVE, Urine Cannabinoids Screen NEGATIVE CBC/BMP Laboratory Tests 08/28/18 14:56 Red Blood Count 3.58 L, Mean Corpuscular Volume 101.1 H, Mean Corpuscular Hemoglobin 32.1, Mean Corpuscular Hemoglobin Concent 31.8 L, Red Cell Distribution Width 18.9 H, Neutrophils (%) (Auto) 62.4, Lymphocytes (%) (Auto) 8.4 L, Monocytes (%) (Auto) 15.6 H, Eosinophils (%) (Auto) 11.0 H, Basophils (%) (Auto) 0.3, Neutrophils # (Auto) 7.5, Lymphocytes # (Auto) 1.0 L, Monocytes # (Auto) 1.9 H, Eosinophils # (Auto) 1.3 H, Basophils # (Auto) 0.0 Microbiology Microbiology 08/28/18 Blood Culture, Received Pending 08/28/18 Blood Culture, Received Pending 08/28/18 Urine Culture, Received Pending Plan / VTE VTE Prophylaxis Ordered?: Yes (heparin 5000 units of cutaneous every 8 hours) Plan Plan 1. Altered mental status: Urinalysis positive. Urine culture pending. Blood culture pending. Mild leukocytosis. Lactic acidosis 2.2. Start ceftriaxone. Posadas catheter change. Head CT negative. Chest x-ray unrevealing for any acute intrapulmonary pathology. DNR/DNI discussed with patient and daughter bedside. MOLST form in chart. PFS consulted for potential placement. Bedrest with commode privileges. 2. End-stage renal disease on hemodialysis: Regularly hemodialysis Tuesday, , Tuesday. Nephrology consulted. Patient did pull out hemodialysis catheter and hemodialysis today. Hemoglobin currently stable. Reevaluate hemoglobin in the morning. No active signs of bleeding at this time. Continue Renvela. Midodrine. 3. Hypertensive urgency: Asymptomatic at this time. Possible improvement with hemodialysis. Monitor for the time being. 4. Hypothyroidism: Continue levothyroxine. 5. Glaucoma: Continue brimonidine and latanoprost eyedrops. 6. History of cerebrovascular accident: Continue with aspirin. 7. Hypertension: Continue with carvedilol. Disposition Admit: Medical surgical unit Anticipated hospitalization: 2 nights Attending: Dr. Carter Diet: Continue Current (renal) Therapy: PT Medications: Start Antibiotics (ceftriaxone 1 g IV every 4 hours) Diagnostics: Check Labs, Repeat Labs in AM, Obtain Cultures (blood cultures) Anticipated Discharge: Assisted Living, Senior Living Advanced Directives: MOLST Form is available, Do Not Resuscitate (DNR), Do Not Intubate (DNI), Health Care Proxy (HCP) Attending Note Attending Note I have both independently examined this patient as well as reviewed the H and P. I have discussed in detail w the resident the findings and the plan of treatment as documented in the residents note. FINN DEXTER DO Aug 28, 2018 19:39 TALON LUCAS MD Aug 30, 2018 21:58
[2018-08-28] MEDS: BRIMONIDINE 0.1% OPHTH SOLN 5 ML OU SCH (21:00)
[2018-08-28] MEDS: LATANOPROST 0.005% OPHTH SOLN 2.5 ML OU SCH (21:00)
[2018-08-28 21:10] VITALS: BP 139/88
[2018-08-28] MEDS: HEPARIN SOD (PORCINE) 5000 UNITS/ML VIAL SC SCH (21:59)
[2018-08-28] MEDS: CARVedilol 12.5 MG TAB PO SCH (22:02)
[2018-08-29] MEDS: LEVOTHYROXINE 25MCG TABLET (0.025MG) PO SCH (05:20)
[2018-08-29] MEDS: HEPARIN SOD (PORCINE) 5000 UNITS/ML VIAL SC SCH ×3 (05:21→20:43)
[2018-08-29 05:48] LABS: BASO % 0.5 % (0.0-1.0); EOS # 1.4 10^3/uL (0.0-0.50); EOS % 16.4 % (0.0-3.0); HEMATOCRIT 32.5 % (42.0-52.0); HEMOGLOBIN 10.4 g/dl (13.5-17.5); MONO # 1.6 10^3/uL (0.0-0.8); MONO % 19.4 % (0.0-5.0); NEUTROPHILS # 4.1 10^3/uL (1.8-7.7); NEUTROPHILS % 50.4 % (36.0-66.0); PLATELET COUNT, AUTOMATED 191 10^3/uL (150-450); RED BLOOD COUNT 3.25 10^6/uL (4.30-6.10); WHITE BLOOD COUNT 8.2 10^3/uL (4.0-10.0)
[2018-08-29 06:00] VITALS: BP 146/77
[2018-08-29 06:11] LABS: ALBUMIN 2.6 GM/DL (3.2-5.2); CALCIUM LEVEL 8.6 MG/DL (8.8-10.2); CREATININE FOR GFR 6.92 MG/DL (0.70-1.30); GLOMERULAR FILTRATION RATE 8.1 (>35); POTASSIUM SERUM 4.5 MEQ/L (3.5-5.1)
[2018-08-29] MEDS: (RENVELA) SEVELAMER **CARBONate** 800 MG TAB PO SCH ×5 (08:00→18:00)
[2018-08-29] MEDS: FOLIC ACID 1 MG TAB PO SCH (09:48)
[2018-08-29] MEDS: MIDODRINE 5 MG TAB PO SCH (09:48)
[2018-08-29] MEDS: ASPIRIN 81 MG ENTERIC TAB PO SCH (09:48)
[2018-08-29] MEDS: BRIMONIDINE 0.1% OPHTH SOLN 5 ML OU SCH ×2 (09:49→20:43)
[2018-08-29] MEDS: MEGESTROL SUSP 400 MG/10 ML UDC PO SCH (09:53)
[2018-08-29] MEDS: CARVedilol 12.5 MG TAB PO SCH ×2 (09:53→20:42)
[2018-08-29 11:12] VITALS: BP 120/67
--- NOTE | 2018-08-29 12:05 | CR ---
DATE OF CONSULTATION: 08/29/2018 NEPHROLOGY CONSULTATION FOR: Dr. Araya REASON FOR CONSULTATION: To assist in the management of end-stage renal disease. HISTORY OF PRESENT ILLNESS: Mr. Dubois is an 87-year-old gentleman who was admitted yesterday due to altered mentation. He has known history of end-stage renal disease, mild dementia, hypertension, congestive heart failure, hypothyroidism, chronic obstructive pulmonary disease (COPD) and urinary retention requiring chronic Posadas catheter placement. He was in dialysis yesterday and was very confused and disoriented. He pulled out dialysis needle right in the middle of dialysis treatment and lost about 300 mL of blood. Due to altered mentation, he was sent to emergency room and got admitted. I have seen him this morning. Patient did complete about half of his dialysis treatment yesterday and his regular dialysis is done on Tuesday, Tuesday and Tuesday schedule. PAST MEDICAL AND SURGICAL HISTORY: Significant for: 1. Hypertension. 2. COPD. 3. Diastolic congestive heart failure. 4. End-stage renal disease requiring maintenance hemodialysis. 5. History of glaucoma. 6. Prior history of stroke. 7. 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 8. History of anemia of chronic kidney disease. Past surgical history is significant for left femoral hemiarthroplasty, esophagogastroduodenoscopy (EGD), colonoscopy, bilateral cataract surgery, arteriovenous (AV) fistula in right arm and testicular removal. MEDICATIONS: His home medications include: - ICaps 1 capsule daily - Renovite 1 tablet daily - aspirin 81 mg daily - Carvedilol 12.5 mg twice a day - vitamin D 50,000 units every 2 weeks - folic acid 1 mg daily - levothyroxine 25 mcg daily - Megace 40 mg/mL 5 mL daily - midodrine 5 mg daily - Renvela 800 mg 2 tablets with meals - Travatan eye drops 1 drop in both eyes at bedtime ALLERGIES: The patient has allergy to CIPROFLOXACIN and BACTRIM. PERSONAL AND SOCIAL HISTORY: Patient lives independently and uses a walker for ambulation. He resides in the same complex as his daughter who is his healthcare proxy. Daughter frequently visits the patient for meals. He has remote history of smoking, which he quit a few years ago, and denies any alcohol or drug use. He is very hard of hearing. REVIEW OF SYSTEMS: Patient is quite hard of hearing. He was very confused and disoriented yesterday. However, this morning he is able to answer simple questions. He is aware that he is in the hospital. He does not know the day or month. Ears, nose and throat are unremarkable. Cardiovascular system is negative for dyspnea or chest pain. He does have some leg edema. Respiratory system is significant for COPD and history of aspiration pneumonia in the past. Gastrointestinal (GI) system is significant for poor oral intake but denies any vomiting or diarrhea. Genitourinary () system is significant for an indwelling Posadas catheter with history of recurrent urinary tract infections. Musculoskeletal system is significant for generalized weakness and inability to walk properly. He does use a walker. Endocrine system is significant for hypothyroidism and secondary hyperparathyroidism. Neurological system is significant for prior stroke and mild dementia. Hematological system is significant for anemia of chronic kidney disease. PHYSICAL EXAMINATION: Patient is awake and able to answer simple questions this morning. He was able to recover nicely and he is aware that he is in hospital. He is very [id number] so interview is somewhat limited. Temperature is 98.3 degrees Fahrenheit, heart rate about 92 per minute and respiratory rate 18 per minute. Blood pressure 146/77 mmHg and oxygen saturation 93% on room air. His head is atraumatic. Neck veins are not abnormally distended. There is no oral thrush or ulcers. Trachea is midline and thyroid is not enlarged. Heart sounds are somewhat tachycardiac and irregular in rhythm. Lungs have good bilateral air entry. Abdomen is soft and nontender and bowel sounds are normal. Extremities have no cyanosis or clubbing. There is some edema on lower legs. Neurologically, he is awake and able to answer simple questions. He is not very well oriented to time. LABORATORY DATA: WBC count last evening was 12.01, this morning it is down to 8.2. Hemoglobin is 10.4 and hematocrit 32.5. Sodium is 139, potassium 4.5, CO2 29, BUN 27 and creatinine 6.98. Lactic acid level was 2.2 last evening and repeat one was 1.0. Calcium 8.6 and phosphorus 5.0. Urinalysis showed 157 WBCs and 110 RBCs with 3+ bacteria. Toxicology screen was negative. He also had a CT scan of head done, which showed small vessel ischemic changes and moderate volume loss. Chest x-ray was done in emergency room prior to admission, which showed chronic interstitial changes and cardiomegaly, but no acute effusion or infiltrate. PROBLEMS: 1. End-stage renal disease. Patient was dialyzed yesterday, though he did not complete his dialysis treatment. We will plan to dialyze him tomorrow. At present, his volume status is well-compensated and there is no emergent need for dialysis today. 2. Hypertension. Blood pressure usually fluctuates, however seems to be reasonably well controlled at this time. We will continue to monitor and adjust his medications as needed. He does have history of hypotension in the past and we have used midodrine. 3. Urinary tract infection. Patient has a chronic indwelling Posadas catheter with recurrent urinary tract infections. Unfortunately, he is not a surgical candidate and we cannot remove the Posadas catheter due to retention. He is currently on ceftriaxone 1 gram every 24 hours. This is appropriate pending cultures. 4. Hyperphosphatemia. Patient is on Renvela 1600 mg three times a day with meals, which will be continued. His phosphorus level was normal. 5. Altered mentation. Most likely his altered mentation was related to UTI and seems to be improving. Continue with supportive care. Thank you for involving me in the care of Mr. Dubois. I will follow him along with you.
--- NOTE | 2018-08-29 12:45 | IPNPDOC ---
Subjective Date Seen The patient was seen on 08/29/18. Subjective Chief Complaint/HPI Patient seen and examined at the bedside. He is able to tell me where he is, his name, and date of . He does not offer any acute complaints at this time. According to bedside nursing staff, his mentation is much improved from yesterday. Objective Physical Examination General Exam: Positive: Alert, Cooperative, No Acute Distress ENT Exam: Positive: Mucous membr. moist/pink; Negative: Atraumatic Neck Exam: Negative: JVD Chest Exam: Positive: Diminished Heart Exam: Positive: Rate Normal, Normal S1, Normal S2 Abdomen Exam: Positive: Soft; Negative: Tenderness Extremity Exam: Negative: Tenderness Assessment /Plan Plan/VTE VTE Prophylaxis Ordered?: Yes Plan Indwelling Posadas catheter associated Urinary tract infection Urine Culture pending Cont Rocephin for now WBC has normalized, patient has remained afebrile We will cont to monitor Metabolic Encephalopathy 2/[address] Head negative for acute findings Mentation appears to be improving this morning End-stage renal disease on hemodialysis Nephro on board for dialysis as scheduled Hypertension Cont Coreg Hypothyroidism Continue levothyroxine. Glaucoma Continue brimonidine and latanoprost eyedrops. History of Cerebrovascular accident Continue with aspirin. Not on Statin? Will defer to PCP DVT Prophylaxis Heparin SC Dispo--PFS on board for likely need of placement VS, I&O, 24H, [place] Vital Signs/I&O Vital Signs Date Time Temp Pulse Resp B/P (MAP) Pulse Ox O2 Delivery O2 Flow Rate FiO2 08/29/18 11:12 120/67 (84) 08/29/18 09:53 100 08/29/18 06:00 98.3 16 93 Room Air I&O- Last 24 Hours up to 6 AM 08/29/18 05:59 Intake Total 200 ml Output Total 50 ml Balance 150 ml Laboratory Data 24H LABS Laboratory Tests 2 08/28/18 14:47: Bedside Glucose (Misc Panel) 85 08/28/18 14:56: Immature Granulocyte % (Auto) 2.3, White Blood Count 12.0H, Red Blood Count 3.58L, Hemoglobin 11.5L, Hematocrit 36.2L, Mean Corpuscular Volume 101.1H, Mean Corpuscular Hemoglobin 32.1, Mean Corpuscular Hemoglobin Concent 31.8L, Red Cell Distribution Width 18.9H, Platelet Count 194, Neutrophils (%) (Auto) 62.4, Lymphocytes (%) (Auto) 8.4L, Monocytes (%) (Auto) 15.6H, Eosinophils (%) (Auto) 11.0H, Basophils (%) (Auto) 0.3, Neutrophils # (Auto) 7.5, Lymphocytes # (Auto) 1.0L, Monocytes # (Auto) 1.9H, Eosinophils # (Auto) 1.3H, Basophils # (Auto) 0.0, Nucleated Red Blood Cells % (auto) 0.2H, Anion Gap 8, Glomerular Filtration Rate 10.2L, Osmolality 297, Lactic Acid Level 2.2*H, Calcium Level 8.5L, Aspartate Amino Transf (AST/SGOT) 15, Alanine Aminotransferase (ALT/SGPT) 15, Alkaline Phosphatase 120H, Total Bilirubin 0.6, Direct Bilirubin 0.2, Ammonia < 10, Total Creatine Kinase 61, Creatine Kinase MB 3.0, Creatine Kinase MB Relative Index 5.25H, Troponin I 0.09, Total Protein 6.6, Albumin 3.1L, Albumin/Globulin Ratio 0.89L, Thyroid Stimulating Hormone (TSH) 1.360, Ethyl Alcohol Level < 0.003 08/28/18 15:19: Urine Color MARY, Urine Appearance TURBIDH, Urine pH 8.0, Urine Specific [place] 1.012, Urine Protein 3+H, Urine Glucose (UA) NEGATIVE, Urine Ketones NEGATIVE, Urine Blood 1+H, Urine Nitrite NEGATIVE, Urine Bilirubin NEGATIVE, Urine Urobilinogen 0.2, Urine Leukocyte Esterase 3+H, Urine WBC (Auto) 157H, Urine RBC (Auto) 110H, Urine Hyaline Casts (Auto) 0, Urine Bacteria (Auto) 3+H, Urine Squamous Epithelial Cells 0, Urine Mucus (Auto) LARGE, Urine Sperm (Auto) , Urine Amphetamines Screen NEGATIVE, Urine Benzodiazepines Screen NEGATIVE, Urine Opiates Screen NEGATIVE, Urine Methadone Screen NEGATIVE, Urine Bar biturates Screen NEGATIVE, Urine Phencyclidine Screen NEGATIVE, Urine Cocaine Metabolite Screen NEGATIVE, Urine Cannabinoids Screen NEGATIVE 08/28/18 19:27: Lactic Acid Followup at 4 Hours 1.0 08/29/18 05:28: Immature Granulocyte % (Auto) 1.3, White Blood Count 8.2, Red Blood Count 3.25L, Hemoglobin 10.4L, Hematocrit 32.5L, Mean Corpuscular Volume 100.0H, Mean Corpuscular Hemoglobin 32.0, Mean Corpuscular Hemoglobin Concent 32.0, Red Cell Distribution Width 19.1H, Platelet Count 191, Neutrophils (%) (Auto) 50.4, Lymphocytes (%) (Auto) 12.0L, Monocytes (%) (Auto) 19.4H, Eosinophils (%) (Auto) 16.4H, Basophils (%) (Auto) 0.5, Neutrophils # (Auto) 4.1, Lymphocytes # (Auto) 1.0L, Monocytes # (Auto) 1.6H, Eosinophils # (Auto) 1.4H, Basophils # (Auto) 0.0, Nucleated Red Blood Cells % (auto) 0.0, Blood Urea Nitrogen 27H, Creatinine 6.92H, Sodium Level 139, Potassium Level 4.5, Chloride Level 100, Carbon Dioxide Level 29, Anion Gap 10, Glomerular Filtration Rate 8.1L, Calcium Level 8.6L, Phosphorus Level 5.0H, Albumin 2.6L CBC/BMP Laboratory Tests 08/28/18 14:56 Red Blood Count 3.58 L, Mean Corpuscular Volume 101.1 H, Mean Corpuscular Hemoglobin 32.1, Mean Corpuscular Hemoglobin Concent 31.8 L, Red Cell Distribution Width 18.9 H, Neutrophils (%) (Auto) 62.4, Lymphocytes (%) (Auto) 8.4 L, Monocytes (%) (Auto) 15.6 H, Eosinophils (%) (Auto) 11.0 H, Basophils (%) (Auto) 0.3, Neutrophils # (Auto) 7.5, Lymphocytes # (Auto) 1.0 L, Monocytes # (Auto) 1.9 H, Eosinophils # (Auto) 1.3 H, Basophils # (Auto) 0.0 08/29/18 05:28 Red Blood Count 3.25 L, Mean Corpuscular Volume 100.0 H, Mean Corpuscular Hemoglobin 32.0, Mean Corpuscular Hemoglobin Concent 32.0, Red Cell Distribution Width 19.1 H, Neutrophils (%) (Auto) 50.4, Lymphocytes (%) (Auto) 12.0 L, Monocytes (%) (Auto) 19.4 H, Eosinophils (%) (Auto) 16.4 H, Basophils (%) (Auto) 0.5, Neutrophils # (Auto) 4.1, Lymphocytes # (Auto) 1.0 L, Monocytes # (Auto) 1.6 H, Eosinophils # (Auto) 1.4 H, Basophils # (Auto) 0.0, Anion Gap 10 Microbiology Microbiology 08/28/18 Blood Culture, Received Pending 08/28/18 Blood Culture, Received Pending 08/28/18 Urine Culture, Received Pending GERMANIA CHACON MD Aug 29, 2018 12:45
[2018-08-29 18:02] VITALS: BP_SYST 160; BP_SYST 170; BP_DIAS 70
--- NOTE | 2018-08-29 18:18 | ECGEPIP ---
Stationary ECG Study [facility] - ED Test Date: 2018-08-28 Pat Name: MELI COFFMAN Department: Room: - Gender: M [employer]: zoë : 1930 Requested By: TONI Tapia Order Number: [id number] Reading MD: Bassam Bullock Measurements Intervals [place] Rate: 94 P: 77 ND: 203 QRS: -11 QRSD: 91 T: 73 QT: 356 QTc: 447 Interpretive Statements SINUS RHYTHM NONSPECIFIC T-WAVE ABNORMALITY BENIGN EARLY REPOLARIZATION SIMILAR TO 08/11/18 Electronically Signed On 08-29-2018 18:18:47 EST by Bassam Bullock
[2018-08-29] MEDS ORDERED: **hydrALAZINE HCL** 25 MG TAB PO ONE (18:30)
[2018-08-29] MEDS: cefTRIAXone SOD 1 GM in D5W MINI-BAG PLUS 50 ML IV SCH (18:43)
[2018-08-29] MEDS: LATANOPROST 0.005% OPHTH SOLN 2.5 ML OU SCH (20:44)
[2018-08-29 22:00] VITALS: BP 150/58
[2018-08-30] MEDS: FOLIC ACID 1 MG TAB PO SCH (05:55)
[2018-08-30] MEDS: LEVOTHYROXINE 25MCG TABLET (0.025MG) PO SCH (05:55)
[2018-08-30] MEDS: MIDODRINE 5 MG TAB PO SCH (05:56)
[2018-08-30] MEDS: ASPIRIN 81 MG ENTERIC TAB PO SCH (05:56)
[2018-08-30] MEDS: CARVedilol 12.5 MG TAB PO SCH ×2 (05:59→20:25)
[2018-08-30 06:00] VITALS: BP 151/76
[2018-08-30] MEDS: HEPARIN SOD (PORCINE) 5000 UNITS/ML VIAL SC SCH ×3 (06:02→20:22)
[2018-08-30] MEDS: (RENVELA) SEVELAMER **CARBONate** 800 MG TAB PO SCH ×4 (06:08→18:22)
[2018-08-30 06:33] LABS: BASO % 0.3 % (0.0-1.0); EOS # 0.9 10^3/uL (0.0-0.50); EOS % 12.7 % (0.0-3.0); HEMATOCRIT 32.1 % (42.0-52.0); HEMOGLOBIN 10.4 g/dl (13.5-17.5); LYMPH # 0.9 10^3/uL (1.5-4.5); LYMPH % 12.5 % (24.0-44.0); MEAN CORPUSCULAR HGB CONC 32.4 g/dl (32.0-36.5); MEAN CORPUSCULAR VOLUME 98.8 fl (80.0-96.0); MONO # 1.3 10^3/uL (0.0-0.8); MONO % 18.9 % (0.0-5.0); NEUTROPHILS # 3.8 10^3/uL (1.8-7.7); NEUTROPHILS % 54.6 % (36.0-66.0); PLATELET COUNT, AUTOMATED 168 10^3/uL (150-450); RED BLOOD COUNT 3.25 10^6/uL (4.30-6.10)
[2018-08-30 06:52] LABS: ALBUMIN 2.7 GM/DL (3.2-5.2); CALCIUM LEVEL 8.7 MG/DL (8.8-10.2); CREATININE FOR GFR 4.79 MG/DL (0.70-1.30); GLOMERULAR FILTRATION RATE 12.4 (>35); PHOSPHORUS LEVEL 4.4 MG/DL (2.5-4.9); POTASSIUM SERUM 4.3 MEQ/L (3.5-5.1)
[2018-08-30] MEDS: BRIMONIDINE 0.1% OPHTH SOLN 5 ML OU SCH ×2 (08:31→20:22)
[2018-08-30] MEDS: MEGESTROL SUSP 400 MG/10 ML UDC PO SCH (08:31)
--- NOTE | 2018-08-30 11:58 | IPN ---
DATE: 08/30/2018 Mr. Dubois is seen this morning on his bedside. He is sleeping and we woke him up. He remains somewhat confused and also he is very hard of hearing. He was dialyzed yesterday afternoon which he tolerated well. The patient has no specific complaints at present. PHYSICAL EXAMINATION: Temperature 98.7 degrees Fahrenheit, heart rate 100 per minute and respiratory rate 19 per minute. Blood pressure 151/76 mmHg and oxygen saturation 94% on room air. Head is atraumatic. Neck is supple and JVD is not abnormally elevated. Heart sounds are tachycardiac and somewhat irregular. Lungs with slightly diminished breath sounds but no wheezing or rales. Abdomen soft and nontender. Extremities have no cyanosis or clubbing. His urine culture came back positive for Proteus which is sensitive to everything except nitrofurantoin and Tygacil. His other labs show WBC count 7.0, hemoglobin 10.4 and hematocrit 32.1. Sodium 137, potassium 4.3, BUN 14 and creatinine 4.79. PROBLEMS: 1. End-stage renal disease. The patient was dialyzed yesterday and we will plan to dialyze him again on Tuesday, which is his regular dialysis day. His electrolytes and volume status are reasonably well-compensated. 2. Proteus UTI. The patient has an indwelling Posadas catheter with chronic urinary tract infection. He is on ceftriaxone and Proteus is sensitive to it. I would suggest to treat him for at least a few days with intravenous antibiotic and then switch him to oral antibiotic. He has allergy to quinolones so an oral substitute will need to be appropriate for the Proteus. 3. Hypertension. Blood pressure, which has been usually well controlled, was high yesterday, however improved today. I would suggest to continue his chronic antihypertensives for now. 4. Anemia. His anemia is mild and stable and does not need any urgent intervention.
--- NOTE | 2018-08-30 12:35 | IPNPDOC ---
Subjective Date Seen The patient was seen on 08/30/18. Subjective Chief Complaint/HPI Patient seen and examined at bedside. The patient did have a bout of confusion last night, but otherwise no acute overnight events noted. This morning, the patient appears awake, alert, and oriented to person or place, and situation. He does not endorse any acute complaints. Objective Physical Examination General Exam: Positive: Alert, Cooperative, No Acute Distress ENT Exam: Positive: Mucous membr. moist/pink; Negative: Atraumatic Neck Exam: Negative: JVD Chest Exam: Positive: Diminished Heart Exam: Positive: Rate Normal, Normal S1, Normal S2 Abdomen Exam: Positive: Soft; Negative: Tenderness Extremity Exam: Negative: Tenderness Assessment /Plan Plan/VTE VTE Prophylaxis Ordered?: Yes Plan Chronic Indwelling Posadas Catheter associated Urinary tract infection Urine Culture notable for Proteus Cont Rocephin for now WBC has normalized, patient has remained afebrile We will cont to monitor Metabolic Encephalopathy 2/[address] Head negative for acute findings Mentation appears to be back to baseline End-stage renal disease on hemodialysis Nephro on board for dialysis as scheduled Hypertension Cont Coreg Hypothyroidism Continue levothyroxine. Glaucoma Continue brimonidine and latanoprost eyedrops. History of Cerebrovascular accident Continue with aspirin. Not on Statin? Will defer to PCP DVT Prophylaxis Heparin SC Dispo--PFS on board for likely need of placement VS, I&O, 24H, Michele Vital Signs/I&O Vital Signs Date Time Temp Pulse Resp B/P (MAP) Pulse Ox O2 Delivery O2 Flow Rate FiO2 08/30/18 06:00 98.7 100 19 151/76 (101) 94 Room Air I&O- Last 24 Hours up to 6 AM 08/30/18 06:00 Intake Total 100 ml Output Total 1625 ml Balance -1525 ml Laboratory Data 24H LABS Laboratory Tests 2 08/30/18 05:35: Immature Granulocyte % (Auto) 1.0, White Blood Count 7.0, Red Blood Count 3.25L, Hemoglobin 10.4L, Hematocrit 32.1L, Mean Corpuscular Volume 98.8H, Mean Corpuscular Hemoglobin 32.0, Mean Corpuscular Hemoglobin Concent 32.4, Red Cell Distribution Width 18.8H, Platelet Count 168, Neutrophils (%) (Auto) 54.6, Lymphocytes (%) (Auto) 12.5L, Monocytes (%) (Auto) 18.9H, Eosinophils (%) (Auto) 12.7H, Basophils (%) (Auto) 0.3, Neutrophils # (Auto) 3.8, Lymphocytes # (Auto) 0.9L, Monocytes # (Auto) 1.3H, Eosinophils # (Auto) 0.9H, Basophils # (Auto) 0.0, Nucleated Red Blood Cells % (auto) 0.0, Blood Urea Nitrogen 14, Creatinine 4.79H, Sodium Level 137, Potassium Level 4.3, Chloride Level 99, Carbon Dioxide Level 29, Anion Gap 9, Glomerular Filtration Rate 12.4L, Calcium Level 8.7L, Phosphorus Level 4.4, Albumin 2.7L CBC/BMP Laboratory Tests 08/30/18 05:35 Red Blood Count 3.25 L, Mean Corpuscular Volume 98.8 H, Mean Corpuscular Hemoglobin 32.0, Mean Corpuscular Hemoglobin Concent 32.4, Red Cell Distribution Width 18.8 H, Neutrophils (%) (Auto) 54.6, Lymphocytes (%) (Auto) 12.5 L, Monocytes (%) (Auto) 18.9 H, Eosinophils (%) (Auto) 12.7 H, Basophils (%) (Auto) 0.3, Neutrophils # (Auto) 3.8, Lymphocytes # (Auto) 0.9 L, Monocytes # (Auto) 1.3 H, Eosinophils # (Auto) 0.9 H, Basophils # (Auto) 0.0, Anion Gap 9 Microbiology Microbiology 08/28/18 Blood Culture - Preliminary, Resulted No growth after 24 hours . All specim... 08/28/18 Blood Culture - Preliminary, Resulted No growth after 24 hours . All specim... 08/28/18 Urine Culture - Final, Complete Proteus Mirabilis GERMANIA CHACON MD Aug 30, 2018 12:35
[2018-08-30 14:00] VITALS: BP 152/52
[2018-08-30] MEDS: cefTRIAXone SOD 1 GM in D5W MINI-BAG PLUS 50 ML IV SCH (18:22)
[2018-08-30] MEDS: LATANOPROST 0.005% OPHTH SOLN 2.5 ML OU SCH (20:22)
[2018-08-30 22:00] VITALS: BP 141/58
[2018-08-31] MEDS: LEVOTHYROXINE 25MCG TABLET (0.025MG) PO SCH (05:31)
[2018-08-31] MEDS: HEPARIN SOD (PORCINE) 5000 UNITS/ML VIAL SC SCH ×4 (05:33→20:54)
[2018-08-31 06:00] VITALS: BP 148/72
[2018-08-31 06:30] LABS: BASO % 0.4 % (0.0-1.0); EOS # 1.3 10^3/uL (0.0-0.50); EOS % 17.8 % (0.0-3.0); HEMATOCRIT 30.8 % (42.0-52.0); LYMPH % 14.2 % (24.0-44.0); MEAN CORPUSCULAR HEMOGLOBIN 31.9 pg (27.0-33.0); MEAN CORPUSCULAR HGB CONC 32.5 g/dl (32.0-36.5); MEAN CORPUSCULAR VOLUME 98.4 fl (80.0-96.0); MONO # 1.4 10^3/uL (0.0-0.8); MONO % 19.8 % (0.0-5.0); NEUTROPHILS # 3.4 10^3/uL (1.8-7.7); NEUTROPHILS % 46.6 % (36.0-66.0); PLATELET COUNT, AUTOMATED 186 10^3/uL (150-450); RED BLOOD COUNT 3.13 10^6/uL (4.30-6.10); WHITE BLOOD COUNT 7.2 10^3/uL (4.0-10.0)
[2018-08-31 06:52] LABS: ALBUMIN 2.7 GM/DL (3.2-5.2); CALCIUM LEVEL 8.8 MG/DL (8.8-10.2); CREATININE FOR GFR 6.66 MG/DL (0.70-1.30); GLOMERULAR FILTRATION RATE 8.5 (>35); PHOSPHORUS LEVEL 4.9 MG/DL (2.5-4.9)
[2018-08-31] MEDS: MEGESTROL SUSP 400 MG/10 ML UDC PO SCH (09:00)
[2018-08-31] MEDS: (RENVELA) SEVELAMER **CARBONate** 800 MG TAB PO SCH ×3 (09:01→18:00)
[2018-08-31] MEDS: FOLIC ACID 1 MG TAB PO SCH (09:01)
[2018-08-31] MEDS: MIDODRINE 5 MG TAB PO SCH (09:01)
[2018-08-31] MEDS: ASPIRIN 81 MG ENTERIC TAB PO SCH (09:01)
[2018-08-31] MEDS: BRIMONIDINE 0.1% OPHTH SOLN 5 ML OU SCH ×2 (09:03→20:53)
[2018-08-31] MEDS: CARVedilol 12.5 MG TAB PO SCH ×2 (09:03→20:53)
[2018-08-31] MEDS ORDERED: DARBEPOETIN 100 MCG/0.5 ML *DIALYSIS* SYRINGE (J0882) IV SCH (11:30)
--- NOTE | 2018-08-31 12:12 | IPNPDOC ---
Subjective Date Seen The patient was seen on 08/31/18. Subjective Chief Complaint/HPI Patient seen and examined at bedside. No acute overnight events noted. Objective Physical Examination General Exam: Positive: Alert, Cooperative, No Acute Distress ENT Exam: Positive: Mucous membr. moist/pink; Negative: Atraumatic Neck Exam: Negative: JVD Chest Exam: Positive: Diminished Heart Exam: Positive: Rate Normal, Regular Rhythm, Normal S1, Normal S2 Abdomen Exam: Positive: Soft; Negative: Tenderness Extremity Exam: Negative: Tenderness Psych Exam: Positive: Oriented x 3 (name, date of , and current [place] President) Assessment /Plan Plan/VTE VTE Prophylaxis Ordered?: Yes Plan Chronic Indwelling Posadas Catheter associated Urinary tract infection Urine Culture notable for Proteus Cont Rocephin for now WBC has normalized, patient has remained afebrile We will cont to monitor Metabolic Encephalopathy 2/[address] Head negative for acute findings Mentation appears to be back to baseline End-stage renal disease on hemodialysis Nephro on board for dialysis as scheduled Hypertension Cont Coreg Hypothyroidism Continue levothyroxine. Glaucoma Continue brimonidine and latanoprost eyedrops. History of Cerebrovascular accident Continue with aspirin. Not on Statin? Will defer to PCP DVT Prophylaxis Heparin SC Dispo--PFS on board for likely need of placement VS, I&O, 24H, Michele Vital Signs/I&O Vital Signs Date Time Temp Pulse Resp B/P (MAP) Pulse Ox O2 Delivery O2 Flow Rate FiO2 08/31/18 09:03 83 196/85 08/31/18 06:00 98.3 16 96 Room Air I&O- Last 24 Hours up to 6 AM 08/31/18 06:00 Intake Total 1140 ml Output Total 75 ml Balance 1065 ml Laboratory Data 24H LABS Laboratory Tests 2 08/31/18 05:49: Immature Granulocyte % (Auto) 1.2, White Blood Count 7.2, Red Blood Count 3.13L, Hemoglobin 10.0L, Hematocrit 30.8L, Mean Corpuscular Volume 98.4H, Mean Corpuscular Hemoglobin 31.9, Mean Corpuscular Hemoglobin Concent 32.5, Red Cell Distribution Width 18.8H, Platelet Count 186, Neutrophils (%) (Auto) 46.6, Lymphocytes (%) (Auto) 14.2L, Monocytes (%) (Auto) 19.8H, Eosinophils (%) (Auto) 17.8H, Basophils (%) (Auto) 0.4, Neutrophils # (Auto) 3.4, Lymphocytes # (Auto) 1.0L, Monocytes # (Auto) 1.4H, Eosinophils # (Auto) 1.3H, Basophils # (Auto) 0.0, Nucleated Red Blood Cells % (auto) 0.0, Blood Urea Nitrogen 24#H, Creatinine 6.66H, Sodium Level 137, Potassium Level 4.0, Chloride Level 98, Carbon Dioxide Level 28, Anion Gap 11, Glomerular Filtration Rate 8.5L, Calcium Level 8.8, Phosphorus Level 4.9, Albumin 2.7L CBC/BMP Laboratory Tests 08/31/18 05:49 Red Blood Count 3.13 L, Mean Corpuscular Volume 98.4 H, Mean Corpuscular Hemoglobin 31.9, Mean Corpuscular Hemoglobin Concent 32.5, Red Cell Distribution Width 18.8 H, Neutrophils (%) (Auto) 46.6, Lymphocytes (%) (Auto) 14.2 L, Monocytes (%) (Auto) 19.8 H, Eosinophils (%) (Auto) 17.8 H, Basophils (%) (Auto) 0.4, Neutrophils # (Auto) 3.4, Lymphocytes # (Auto) 1.0 L, Monocytes # (Auto) 1.4 H, Eosinophils # (Auto) 1.3 H, Basophils # (Auto) 0.0, Anion Gap 11 Microbiology Microbiology 08/28/18 Blood Culture - Preliminary, Resulted No Growth after 48 hours. All Specime... 08/28/18 Blood Culture - Preliminary, Resulted No Growth after 48 hours. All Specime... 08/28/18 Urine Culture - Final, Complete Proteus Mirabilis GERMANIA CHACON MD Aug 31, 2018 12:12
--- NOTE | 2018-08-31 14:34 | IPN ---
DATE OF VISIT: 08/31/2018 Mr. Dubois is seen this morning on his bedside. He is feeling well and denies any new problems. He is very hard of hearing and has great difficulty in communication. Nursing staff reports no problems. He was admitted with altered mentation, which was felt to be related to urinary tract infection and has been treated with antibiotics. He has been receiving his hemodialysis and last dialysis was performed on Tuesday. His regular dialysis days are Tuesday, Tuesday and Tuesday. On physical exam, temperature 98.3 degrees Fahrenheit, heart rate 78 per minute and respiratory rate 16 per minute. Blood pressure 148/72 mmHg and oxygen saturation 96% on room air. His head is atraumatic. Neck is supple and without jugular venous distention (JVD) or thyroid enlargement. Heart sounds are regular and lungs clear to auscultation. Abdomen soft and nontender. Bowel sounds are normal. Extremities have no cyanosis or clubbing. Neurologically, he is awake and at his baseline mentation. Today's labs show WBC count 7.2, hemoglobin 10.0 and hematocrit 30.8. Platelets 186. Sodium 137, potassium 4.0, CO2 28, BUN 24 and creatinine 6.66. Glucose 84, calcium 8.8 and phosphorus 4.9. PROBLEMS: 1. End-stage renal disease. Patient is regularly dialyzed on Tuesday, Tuesday and Tuesday schedule. He was dialyzed on Tuesday and we will plan to dialyze him again tomorrow. At present, there is no emergent need for dialysis today so we will not dialyze him today. 2. Hypertension. Blood pressure has been generally well-controlled and current antihypertensives should be continued. In fact, he gets low blood pressure during dialysis and has been on midodrine 5 mg daily. 3. Altered mentation. Most likely this was related to urinary tract infection and has already improved back to baseline. 4. Urinary tract infection (UTI). Patient had a Proteus positive in his urine culture. He has an indwelling Posadas catheter. He is currently on ceftriaxone and seems to be doing well. 5. Anemia. His anemia is related to end-stage renal disease and stable at baseline. I am going to order Aranesp 100 mcg with his dialysis treatment next time. All other issues are stable at present.
[2018-08-31] MEDS: cefTRIAXone SOD 1 GM in D5W MINI-BAG PLUS 50 ML IV SCH (18:00)
[2018-08-31] MEDS: LATANOPROST 0.005% OPHTH SOLN 2.5 ML OU SCH (20:53)
[2018-08-31 22:00] VITALS: BP 170/84
[2018-09-01] MEDS: MEGESTROL SUSP 400 MG/10 ML UDC PO SCH (05:24)
[2018-09-01] MEDS: CARVedilol 12.5 MG TAB PO SCH ×2 (05:25→20:39)
[2018-09-01] MEDS: ACETAMINOPHEN 500 MG TAB PO PRN (05:25)
[2018-09-01] MEDS: (RENVELA) SEVELAMER **CARBONate** 800 MG TAB PO SCH ×3 (05:25→18:00)
[2018-09-01] MEDS: BRIMONIDINE 0.1% OPHTH SOLN 5 ML OU SCH ×2 (05:26→20:09)
[2018-09-01] MEDS: LEVOTHYROXINE 25MCG TABLET (0.025MG) PO SCH (05:26)
[2018-09-01] MEDS: FOLIC ACID 1 MG TAB PO SCH (05:26)
[2018-09-01] MEDS: ASPIRIN 81 MG ENTERIC TAB PO SCH (05:26)
[2018-09-01] MEDS: MIDODRINE 5 MG TAB PO SCH (05:26)
[2018-09-01] MEDS: HEPARIN SOD (PORCINE) 5000 UNITS/ML VIAL SC SCH ×3 (05:27→20:09)
[2018-09-01 06:00] VITALS: BP 174/86
[2018-09-01 06:03] LABS: BASO % 0.4 % (0.0-1.0); EOS # 1.6 10^3/uL (0.0-0.50); EOS % 19.9 % (0.0-3.0); HEMATOCRIT 34.9 % (42.0-52.0); HEMOGLOBIN 11.2 g/dl (13.5-17.5); LYMPH # 0.8 10^3/uL (1.5-4.5); LYMPH % 9.8 % (24.0-44.0); MEAN CORPUSCULAR HEMOGLOBIN 32.1 pg (27.0-33.0); MEAN CORPUSCULAR HGB CONC 32.1 g/dl (32.0-36.5); MONO # 1.4 10^3/uL (0.0-0.8); MONO % 17.5 % (0.0-5.0); NEUTROPHILS % 50.1 % (36.0-66.0); PLATELET COUNT, AUTOMATED 205 10^3/uL (150-450); RED BLOOD COUNT 3.49 10^6/uL (4.30-6.10)
[2018-09-01 06:37] LABS: ALBUMIN 2.9 GM/DL (3.2-5.2); CALCIUM LEVEL 8.7 MG/DL (8.8-10.2); CREATININE FOR GFR 8.44 MG/DL (0.70-1.30); GLOMERULAR FILTRATION RATE 6.4 (>35); PHOSPHORUS LEVEL 5.2 MG/DL (2.5-4.9); POTASSIUM SERUM 4.5 MEQ/L (3.5-5.1)
[2018-09-01] MEDS ORDERED: HEPARIN 1,000 UNITS/ML 10ML VIAL (FOR RADIOLOGY& DIALYSIS ONLY) IV ONE (11:15)
--- NOTE | 2018-09-01 14:05 | IPNPDOC ---
Subjective Date Seen The patient was seen on 09/01/18. Subjective Chief Complaint/HPI Patient seen and examined at the bedside. No acute overnight events noted. Objective Physical Examination General Exam: Positive: Alert, Cooperative, No Acute Distress ENT Exam: Positive: Mucous membr. moist/pink; Negative: Atraumatic Neck Exam: Negative: JVD Chest Exam: Positive: Diminished Heart Exam: Positive: Rate Normal, Regular Rhythm, Normal S1, Normal S2 Abdomen Exam: Positive: Soft; Negative: Tenderness Extremity Exam: Negative: Tenderness Assessment /Plan Plan/VTE VTE Prophylaxis Ordered?: Yes Plan Chronic Indwelling Posadas Catheter associated Urinary tract infection Urine Culture notable for Proteus Rocephin transitioned to PO Cefdinir WBC has normalized, patient has remained afebrile We will cont to monitor Metabolic Encephalopathy 2/[address] Head negative for acute findings Mentation appears to be back to baseline End-stage renal disease on hemodialysis Nephro on board for dialysis as scheduled Hypertension Cont Coreg Hypothyroidism Continue levothyroxine. Glaucoma Continue brimonidine and latanoprost eyedrops. History of Cerebrovascular accident Continue with aspirin. Not on Statin? Will defer to PCP DVT Prophylaxis Heparin SC Dispo--PFS on board for likely need of placement VS, I&O, 24H, Fishbone Vital Signs/I&O Vital Signs Date Time Temp Pulse Resp B/P (MAP) Pulse Ox O2 Delivery O2 Flow Rate FiO2 09/01/18 06:00 97.2 82 16 174/86 (115) 98 Room Air I&O- Last 24 Hours up to 6 AM 09/01/18 06:00 Intake Total 510 ml Output Total 250 ml Balance 260 ml Laboratory Data 24H LABS Laboratory Tests 2 09/01/18 05:35: Immature Granulocyte % (Auto) 2.3, White Blood Count 8.0, Red Blood Count 3.49L, Hemoglobin 11.2L, Hematocrit 34.9L, Mean Corpuscular Volume 100.0H, Mean Corpuscular Hemoglobin 32.1, Mean Corpuscular Hemoglobin Concent 32.1, Red Cell Distribution Width 19.0H, Platelet Count 205, Neutrophils (%) (Auto) 50.1, Lymphocytes (%) (Auto) 9.8L, Monocytes (%) (Auto) 17.5H, Eosinophils (%) (Auto) 19.9H, Basophils (%) (Auto) 0.4, Neutrophils # (Auto) 4.0, Lymphocytes # (Auto) 0.8L, Monocytes # (Auto) 1.4H, Eosinophils # (Auto) 1.6H, Basophils # (Auto) 0.0, Nucleated Red Blood Cells % (auto) 0.0, Blood Urea Nitrogen 31H, Creatinine 8.44*H, Sodium Level 136, Potassium Level 4.5, Chloride Level 97L, Carbon Dioxide Level 26, Anion Gap 13, Glomerular Filtration Rate 6.4L, Calcium Level 8.7L, Phosphorus Level 5.2H, Albumin 2.9L CBC/BMP Laboratory Tests 09/01/18 05:35 Red Blood Count 3.49 L, Mean Corpuscular Volume 100.0 H, Mean Corpuscular Hemoglobin 32.1, Mean Corpuscular Hemoglobin Concent 32.1, Red Cell Distribution Width 19.0 H, Neutrophils (%) (Auto) 50.1, Lymphocytes (%) (Auto) 9.8 L, Monocytes (%) (Auto) 17.5 H, Eosinophils (%) (Auto) 19.9 H, Basophils (%) (Auto) 0.4, Neutrophils # (Auto) 4.0, Lymphocytes # (Auto) 0.8 L, Monocytes # (Auto) 1.4 H, Eosinophils # (Auto) 1.6 H, Basophils # (Auto) 0.0, Anion Gap 13 Microbiology Microbiology 08/28/18 Blood Culture - Preliminary, Resulted No Growth after 72 hours. All specime... 08/28/18 Blood Culture - Preliminary, Resulted No Growth after 72 hours. All specime... 08/28/18 Urine Culture - Final, Complete Proteus Mirabilis GERMANIA CHACON MD Sep 01, 2018 14:05
[2018-09-01] MEDS ORDERED: CEFDINIR 300 MG CAP (OMNICEF) PO SCH (18:00)
[2018-09-01] MEDS: LATANOPROST 0.005% OPHTH SOLN 2.5 ML OU SCH (20:09)
[2018-09-01] MEDS ORDERED: SCOPOLAMINE 1MG TRANSDERMAL PATCH TOP SCH (21:30)
[2018-09-01 22:00] VITALS: BP 148/80
--- NOTE | 2018-09-01 22:44 | IPN ---
DATE: 09/01/2018 SUBJECTIVE: The patient was seen and examined at the bedside today, morning. He is still slightly confused. He was complaining of itching on the back; otherwise he was hemodynamically stable. The patient is supposed to be dialyzed today in the afternoon. OBJECTIVE: VITAL SIGNS: Temperature is 97.2 degrees Fahrenheit, blood pressure is 174/86, pulse is 82, respiratory rate of 16, saturating 98% on room air. INTAKE/OUTPUT: Urine output recorded as 150 mL. Weight on the bed scale is 50.8 kg, which is not reliable because there is a 10 kg difference from yesterday. PHYSICAL EXAMINATION: GENERAL: The patient is awake, alert, oriented times two, laying in bed, in no apparent distress. HEAD AND NECK EXAM: Extraocular muscles intact. Pupils equally round and reactive to light. Mucous membranes are moist. Neck is supple. There is no jugular venous distention (JVD). CARDIOVASCULAR: S1, S2, regular rate. No edema of the bilateral lower extremities. RESPIRATORY: Chest is clear to auscultation bilaterally. Bilateral equal air entry. No rales or rhonchi. ABDOMEN: Abdomen is soft, positive bowel sounds, nontender. MUSCULOSKELETAL: No clubbing or cyanosis. Pulses are 2+. CENTRAL NERVOUS SYSTEM: No focal deficit. Power is 5/5 in all extremities. He is oriented times two. SKIN: No rashes or ulcers. LAB REVIEW: CBC showed a WBC of 8, hemoglobin 11.2, platelets are 205. BMP showed sodium 136, potassium 4.5, chloride 97, bicarbonate 26, BUN 31, creatinine is 8.4. CURRENT INPATIENT MEDICATIONS: The patient's medications were all reviewed by me. His IV Rocephin has been stopped. He has been started on oral Omnicef. No other change in the medications today as compared with yesterday. ASSESSMENT AND PLAN: 1. End-stage renal disease, on hemodialysis. The patient 's regular dialysis days are Tuesday, Tuesday, Tuesday. The patient will be dialyzed today in the afternoon. Ultrafiltration goal will be 1.5 liters as tolerated by his blood pressure. 2. Hypertension with end-stage renal disease. Blood pressure is optimal at this point. I am going to stop the midodrine at this point since systolic blood pressures are running in 170s. 3. Metabolic encephalopathy. Most likely associated with Proteus urinary tract infection (UTI). IV antibiotic has been stopped. The patient has been started on Omnicef. 4. Anemia in end-stage renal disease. Hemoglobin is 11.2, which is higher than target. The patient was given one dose of Aranesp. I am going to hold the Aranesp at this point.
[2018-09-02] VITALS: BP 148/80
[2018-09-02 06:00] VITALS: BP 145/83
[2018-09-02] MEDS: LEVOTHYROXINE 25MCG TABLET (0.025MG) PO SCH (06:00)
[2018-09-02 06:06] LABS: BASO % 0.4 % (0.0-1.0); EOS # 0.6 10^3/uL (0.0-0.50); EOS % 6.6 % (0.0-3.0); HEMATOCRIT 36.9 % (42.0-52.0); LYMPH # 1.1 10^3/uL (1.5-4.5); MEAN CORPUSCULAR HEMOGLOBIN 32.2 pg (27.0-33.0); MEAN CORPUSCULAR HGB CONC 32.5 g/dl (32.0-36.5); MEAN CORPUSCULAR VOLUME 98.9 fl (80.0-96.0); MONO # 1.3 10^3/uL (0.0-0.8); MONO % 14.1 % (0.0-5.0); NEUTROPHILS % 64.3 % (36.0-66.0); PLATELET COUNT, AUTOMATED 172 10^3/uL (150-450); RED BLOOD COUNT 3.73 10^6/uL (4.30-6.10); WHITE BLOOD COUNT 9.3 10^3/uL (4.0-10.0)
[2018-09-02] MEDS: HEPARIN SOD (PORCINE) 5000 UNITS/ML VIAL SC SCH ×3 (06:24→20:32)
[2018-09-02 06:31] LABS: ALBUMIN 2.9 GM/DL (3.2-5.2); CALCIUM LEVEL 9.5 MG/DL (8.8-10.2); CREATININE FOR GFR 5.32 MG/DL (0.70-1.30); PHOSPHORUS LEVEL 3.7 MG/DL (2.5-4.9); POTASSIUM SERUM 4.9 MEQ/L (3.5-5.1)
[2018-09-02] MEDS: (RENVELA) SEVELAMER **CARBONate** 800 MG TAB PO SCH ×4 (08:00→17:46)
[2018-09-02] MEDS: FOLIC ACID 1 MG TAB PO SCH ×2 (09:00→10:18)
[2018-09-02] MEDS: CARVedilol 12.5 MG TAB PO SCH ×3 (09:00→20:32)
[2018-09-02] MEDS: MEGESTROL SUSP 400 MG/10 ML UDC PO SCH ×2 (09:00→10:18)
[2018-09-02] MEDS: BRIMONIDINE 0.1% OPHTH SOLN 5 ML OU SCH ×2 (09:00→20:31)
[2018-09-02] MEDS: ASPIRIN 81 MG ENTERIC TAB PO SCH ×2 (09:00→10:18)
--- NOTE | 2018-09-02 12:09 | IPNPDOC ---
Subjective Date Seen The patient was seen on 09/02/18. Subjective Chief Complaint/HPI Patient seen and examined at the bedside. Patient noted to be more lethargic this morning. He was started on a scopolamine patch overnight, and this has been discontinued this morning. The patient is easily arousable and is able to answer questions appropriately. Otherwise no acute overnight events noted. Objective Physical Examination General Exam: Positive: Alert, Cooperative, No Acute Distress ENT Exam: Positive: Mucous membr. moist/pink; Negative: Atraumatic Neck Exam: Negative: JVD Chest Exam: Positive: Diminished Heart Exam: Positive: Rate Normal, Regular Rhythm, Normal S1, Normal S2 Abdomen Exam: Positive: Soft; Negative: Tenderness Extremity Exam: Negative: Tenderness Assessment /Plan Plan/VTE VTE Prophylaxis Ordered?: Yes Plan Chronic Indwelling Posadas Catheter associated Urinary tract infection Urine Culture notable for Proteus Rocephin transitioned to PO Cefdinir WBC has normalized, patient has remained afebrile We will cont to monitor Metabolic Encephalopathy 2/[address] Head negative for acute findings Mentation appears to be back to baseline End-stage renal disease on hemodialysis Nephro on board for dialysis as scheduled Hypertension Cont Coreg Hypothyroidism Continue levothyroxine. Glaucoma Continue brimonidine and latanoprost eyedrops. History of Cerebrovascular accident Continue with aspirin. Not on Statin? Will defer to PCP DVT Prophylaxis Heparin SC Dispo--PFS on board for likely need of placement VS, I&O, 24H, Fishbone Vital Signs/I&O Vital Signs Date Time Temp Pulse Resp B/P (MAP) Pulse Ox O2 Delivery O2 Flow Rate FiO2 09/02/18 06:00 97.8 101 95 145/83 (103) 15 Room Air I&O- Last 24 Hours up to 6 AM 09/02/18 06:00 Intake Total 420 ml Output Total 1550 ml Balance -1130 ml Laboratory Data 24H LABS Laboratory Tests 2 09/02/18 05:24: Immature Granulocyte % (Auto) 2.6, White Blood Count 9.3, Red Blood Count 3.73L, Hemoglobin 12.0L, Hematocrit 36.9L, Mean Corpuscular Volume 98.9H, Mean Corpuscular Hemoglobin 32.2, Mean Corpuscular Hemoglobin Concent 32.5, Red Cell Distribution Width 19.5H, Platelet Count 172, Neutrophils (%) (Auto) 64.3, Lymphocytes (%) (Auto) 12.0L, Monocytes (%) (Auto) 14.1H, Eosinophils (%) (Auto) 6.6H, Basophils (%) (Auto) 0.4, Neutrophils # (Auto) 6.0, Lymphocytes # (Auto) 1.1L, Monocytes # (Auto) 1.3H, Eosinophils # (Auto) 0.6H, Basophils # (Auto) 0.0, Nucleated Red Blood Cells % (auto) 0.3H, Blood Urea Nitrogen 16, Creatinine 5.32H, Sodium Level 137, Potassium Level 4.9, Chloride Level 99, Carbon Dioxide Level 28, Anion Gap 10, Glomerular Filtration Rate 11.0L, Calcium Level 9.5, Phosphorus Level 3.7#, Albumin 2.9L CBC/BMP Laboratory Tests 09/02/18 05:24 Red Blood Count 3.73 L, Mean Corpuscular Volume 98.9 H, Mean Corpuscular Hemoglobin 32.2, Mean Corpuscular Hemoglobin Concent 32.5, Red Cell Distribution Width 19.5 H, Neutrophils (%) (Auto) 64.3, Lymphocytes (%) (Auto) 12.0 L, Monocytes (%) (Auto) 14.1 H, Eosinophils (%) (Auto) 6.6 H, Basophils (%) (Auto) 0.4, Neutrophils # (Auto) 6.0, Lymphocytes # (Auto) 1.1 L, Monocytes # (Auto) 1.3 H, Eosinophils # (Auto) 0.6 H, Basophils # (Auto) 0.0, Anion Gap 10 Microbiology Microbiology 08/28/18 Blood Culture - Preliminary, Resulted No Growth after 72 hours. All specime... 08/28/18 Blood Culture - Preliminary, Resulted No Growth after 72 hours. All specime... 08/28/18 Urine Culture - Final, Complete Proteus Mirabilis GERMANIA CHACON MD Sep 02, 2018 12:09
[2018-09-02 14:00] VITALS: BP 189/84
--- NOTE | 2018-09-02 16:09 | IPN ---
DATE: 09/02/2018 SUBJECTIVE: Patient was seen and examined at the bedside today morning. Patient is very sleepy and drowsy. He is very hard of hearing. He follows very few commands and goes back to sleep. He was dialyzed yesterday, he tolerated the hemodialysis procedure well, 1.5 liters of fluid was removed. OBJECTIVE: VITAL SIGNS: Temperature is 97.8 degrees Fahrenheit, blood pressure 145/83, pulse is 101, respiratory rate of 15, saturating 95% on room air. Intake and output: Urine output recorded only is 25 mL. Ultrafiltration with hemodialysis was 1.5 liters. Weight in the bed scale is 59.3 kg. PHYSICAL EXAMINATION: GENERAL: Patient is drowsy, sleepy, arousable on very loud commands, follows very few commands. HEAD AND NECK EXAM: Pupils are equally round and reactive to light. Mucous membranes are moist. Neck is supple. There is no jugular venous distention (JVD). CARDIOVASCULAR: S1, S2, regular rate. No edema of the bilateral lower extremities. RESPIRATORY: Chest is clear to auscultation bilaterally. Bilateral equal air entry. No rales or rhonchi. ABDOMEN: Abdomen is soft, positive bowel sounds, nontender. GENITOURINARY: Patient has an indwelling Posadas catheter and there is a bag attached to the right thigh with a small amount of urine. CENTRAL NERVOUS SYSTEM (TESTING CONSULTANT): Patient is very drowsy and sleepy, otherwise he moves upper extremities. LABORATORY REVIEW: CBC showed a WBC of 9.3, hemoglobin 12, platelets are 172. BMP showed sodium 137, potassium 4.9, chloride 99, bicarbonate 28, BUN 16, creatinine is 5.2, calcium 9.5, phosphorous 3.7. CURRENT INPATIENT MEDICATIONS: Patient's medications were all reviewed by me. His Aranesp was held yesterday because his hemoglobin is almost 12 now. His midodrine was also held yesterday. ASSESSMENT AND PLAN: 1. End-stage renal disease on hemodialysis. Patient was dialyzed yesterday according to his regular schedule, 1.5 liters of fluid was removed yesterday. Next hemodialysis session will be on 09/04/2018. 2. Hypertension with end-stage renal disease. Patient continues to be on Coreg. Blood pressure is very well controlled. Midodrine dose has been stopped. 3. Metabolic encephalopathy. Patient is very sleepy and drowsy. He was started on scopolamine patch. I am going to have the patch removed. Urinary tract infection (UTI) is being treated. 4. Urinary tract infection. Patient is currently on Omnicef which covers Proteus urinary tract infection. IV antibiotic has been stopped. 5. Anemia in end-stage renal disease. Hemoglobin is 12. No need of Aranesp, which was stopped yesterday.
[2018-09-02] MEDS: LATANOPROST 0.005% OPHTH SOLN 2.5 ML OU SCH (20:31)
[2018-09-02 22:00] VITALS: BP 170/82
[2018-09-03] MEDS: LEVOTHYROXINE 25MCG TABLET (0.025MG) PO SCH (05:25)
[2018-09-03] MEDS: HEPARIN SOD (PORCINE) 5000 UNITS/ML VIAL SC SCH ×3 (05:28→22:00)
[2018-09-03 05:57] LABS: BASO % 0.3 % (0.0-1.0); EOS # 1.2 10^3/uL (0.0-0.50); EOS % 13.9 % (0.0-3.0); HEMOGLOBIN 11.9 g/dl (13.5-17.5); LYMPH # 1.2 10^3/uL (1.5-4.5); LYMPH % 13.7 % (24.0-44.0); MEAN CORPUSCULAR HEMOGLOBIN 32.3 pg (27.0-33.0); MEAN CORPUSCULAR HGB CONC 31.3 g/dl (32.0-36.5); MEAN CORPUSCULAR VOLUME 103.3 fl (80.0-96.0); MONO # 1.6 10^3/uL (0.0-0.8); MONO % 18.2 % (0.0-5.0); NEUTROPHILS # 4.3 10^3/uL (1.8-7.7); NEUTROPHILS % 49.6 % (36.0-66.0); PLATELET COUNT, AUTOMATED 185 10^3/uL (150-450); RED BLOOD COUNT 3.68 10^6/uL (4.30-6.10); WHITE BLOOD COUNT 8.8 10^3/uL (4.0-10.0)
[2018-09-03 06:00] VITALS: BP 175/70
[2018-09-03 06:22] LABS: CALCIUM LEVEL 9.5 MG/DL (8.8-10.2); CREATININE FOR GFR 7.48 MG/DL (0.70-1.30); GLOMERULAR FILTRATION RATE 7.4 (>35); PHOSPHORUS LEVEL 4.7 MG/DL (2.5-4.9); POTASSIUM SERUM 5.3 MEQ/L (3.5-5.1)
[2018-09-03] MEDS: (RENVELA) SEVELAMER **CARBONate** 800 MG TAB PO SCH ×3 (08:00→17:06)
[2018-09-03] MEDS: MEGESTROL SUSP 400 MG/10 ML UDC PO SCH (08:22)
[2018-09-03] MEDS: FOLIC ACID 1 MG TAB PO SCH (08:22)
[2018-09-03] MEDS: ASPIRIN 81 MG ENTERIC TAB PO SCH (08:22)
[2018-09-03] MEDS: **hydrALAZINE HCL** 25 MG TAB PO SCH ×3 (08:22→22:02)
[2018-09-03] MEDS: CARVedilol 12.5 MG TAB PO SCH ×2 (08:22→22:01)
[2018-09-03] MEDS: BRIMONIDINE 0.1% OPHTH SOLN 5 ML OU SCH ×2 (08:23→22:02)
--- NOTE | 2018-09-03 11:54 | IPNPDOC ---
Subjective Date Seen The patient was seen on 09/03/18. Subjective Chief Complaint/HPI Patient seen and examined at the bedside. He appears more awake this morning. Denies any acute complaints of chest pain, palpitations, or shortness of breath. Objective Physical Examination General Exam: Positive: Alert, Cooperative, No Acute Distress ENT Exam: Positive: Mucous membr. moist/pink; Negative: Atraumatic Neck Exam: Negative: JVD Chest Exam: Positive: Diminished Heart Exam: Positive: Rate Normal, Regular Rhythm, Normal S1, Normal S2 Abdomen Exam: Positive: Soft; Negative: Tenderness Extremity Exam: Negative: Tenderness Assessment /Plan Plan/VTE VTE Prophylaxis Ordered?: Yes Plan Chronic Indwelling Posadas Catheter associated Urinary tract infection Urine Culture notable for Proteus Rocephin transitioned to PO Cefdinir WBC has normalized, patient has remained afebrile We will cont to monitor Metabolic Encephalopathy 2/[address] Head negative for acute findings Mentation appears to be at baseline End-stage renal disease on hemodialysis Nephro on board for dialysis as scheduled Hypertension Cont Coreg Hypothyroidism Continue levothyroxine. Glaucoma Continue brimonidine and latanoprost eyedrops. History of Cerebrovascular accident Continue with aspirin. Not on Statin? Will defer to PCP DVT Prophylaxis Heparin SC Dispo--PFS on board for likely need of placement VS, I&O, 24H, Michele Vital Signs/I&O Vital Signs Date Time Temp Pulse Resp B/P (MAP) Pulse Ox O2 Delivery O2 Flow Rate FiO2 09/03/18 08:22 77 169/68 09/03/18 06:00 97.2 16 96 Room Air I&O- Last 24 Hours up to 6 AM 09/03/18 05:59 Intake Total 150 ml Output Total 35 ml Balance 115 ml Laboratory Data 24H LABS Laboratory Tests 2 09/03/18 05:32: Immature Granulocyte % (Auto) 4.3H, White Blood Count 8.8, Red Blood Count 3.68L, Hemoglobin 11.9L, Hematocrit 38.0L, Mean Corpuscular Volume 103.3H, Mean Corpuscular Hemoglobin 32.3, Mean Corpuscular Hemoglobin Concent 31.3L, Red Cell Distribution Width 19.7H, Platelet Count 185, Neutrophils (%) (Auto) 49.6, Lymphocytes (%) (Auto) 13.7L, Monocytes (%) (Auto) 18.2H, Eosinophils (%) (Auto) 13.9H, Basophils (%) (Auto) 0.3, Neutrophils # (Auto) 4.3, Lymphocytes # (Auto) 1.2L, Monocytes # (Auto) 1.6H, Eosinophils # (Auto) 1.2H, Basophils # (Auto) 0.0, Nucleated Red Blood Cells % (auto) 0.5H, Blood Urea Nitrogen 29#H, Creatinine 7.48H, Sodium Level 139, Potassium Level 5.3H, Chloride Level 100, Carbon Dioxide Level 29, Anion Gap 10, Glomerular Filtration Rate 7.4L, Calcium Level 9.5, Phosphorus Level 4.7#, Albumin 3.0L CBC/BMP Laboratory Tests 09/03/18 05:32 Red Blood Count 3.68 L, Mean Corpuscular Volume 103.3 H, Mean Corpuscular Hemoglobin 32.3, Mean Corpuscular Hemoglobin Concent 31.3 L, Red Cell Distribution Width 19.7 H, Neutrophils (%) (Auto) 49.6, Lymphocytes (%) (Auto) 13.7 L, Monocytes (%) (Auto) 18.2 H, Eosinophils (%) (Auto) 13.9 H, Basophils ( %) (Auto) 0.3, Neutrophils # (Auto) 4.3, Lymphocytes # (Auto) 1.2 L, Monocytes # (Auto) 1.6 H, Eosinophils # (Auto) 1.2 H, Basophils # (Auto) 0.0, Anion Gap 10 Microbiology Microbiology 08/28/18 Blood Culture - Final, Complete NO GROWTH AFTER 5 DAYS 08/28/18 Blood Culture - Final, Complete NO GROWTH AFTER 5 DAYS 08/28/18 Urine Culture - Final, Complete Proteus Mirabilis GERMANIA CHACON MD Sep 03, 2018 11:54
[2018-09-03] MEDS: cefTRIAXone SOD 1 GM in D5W MINI-BAG PLUS 50 ML IV SCH (13:36)
[2018-09-03 14:00] VITALS: BP 144/76
[2018-09-03 22:00] VITALS: BP 150/68
[2018-09-03] MEDS: LATANOPROST 0.005% OPHTH SOLN 2.5 ML OU SCH (22:02)
[2018-09-04] MEDS: HEPARIN SOD (PORCINE) 5000 UNITS/ML VIAL SC SCH ×4 (05:43→22:13)
[2018-09-04 06:00] VITALS: BP 148/82
[2018-09-04] MEDS: MEGESTROL SUSP 400 MG/10 ML UDC PO SCH (06:00)
[2018-09-04] MEDS: BRIMONIDINE 0.1% OPHTH SOLN 5 ML OU SCH ×2 (06:01→20:40)
[2018-09-04] MEDS: LEVOTHYROXINE 25MCG TABLET (0.025MG) PO SCH (06:02)
[2018-09-04] MEDS: ASPIRIN 81 MG ENTERIC TAB PO SCH (06:02)
[2018-09-04] MEDS: **hydrALAZINE HCL** 25 MG TAB PO SCH ×3 (06:03→22:00)
[2018-09-04] MEDS: FOLIC ACID 1 MG TAB PO SCH (06:03)
[2018-09-04] MEDS: CARVedilol 12.5 MG TAB PO SCH ×2 (06:04→20:42)
[2018-09-04 06:18] LABS: BASO # 0.1 10^3/uL (0.0-0.2); BASO % 0.5 % (0.0-1.0); EOS # 1.8 10^3/uL (0.0-0.50); EOS % 18.6 % (0.0-3.0); HEMATOCRIT 35.3 % (42.0-52.0); HEMOGLOBIN 11.2 g/dl (13.5-17.5); LYMPH # 1.2 10^3/uL (1.5-4.5); LYMPH % 12.7 % (24.0-44.0); MEAN CORPUSCULAR HEMOGLOBIN 32.7 pg (27.0-33.0); MEAN CORPUSCULAR HGB CONC 31.7 g/dl (32.0-36.5); MEAN CORPUSCULAR VOLUME 103.2 fl (80.0-96.0); MONO # 1.8 10^3/uL (0.0-0.8); MONO % 18.7 % (0.0-5.0); NEUTROPHILS # 4.5 10^3/uL (1.8-7.7); NEUTROPHILS % 46.8 % (36.0-66.0); PLATELET COUNT, AUTOMATED 180 10^3/uL (150-450); RED BLOOD COUNT 3.42 10^6/uL (4.30-6.10); WHITE BLOOD COUNT 9.7 10^3/uL (4.0-10.0)
[2018-09-04 06:45] LABS: ALBUMIN 2.7 GM/DL (3.2-5.2); CALCIUM LEVEL 8.6 MG/DL (8.8-10.2); CREATININE FOR GFR 8.77 MG/DL (0.70-1.30); GLOMERULAR FILTRATION RATE 6.2 (>35); PHOSPHORUS LEVEL 4.3 MG/DL (2.5-4.9); POTASSIUM SERUM 4.5 MEQ/L (3.5-5.1)
[2018-09-04] MEDS: (RENVELA) SEVELAMER **CARBONate** 800 MG TAB PO SCH ×3 (08:00→16:51)
--- NOTE | 2018-09-04 10:36 | IPNPDOC ---
Subjective Date Seen The patient was seen on 09/04/18. Subjective Chief Complaint/HPI Patient seen and examined at the bedside. The patient is lethargic this morning, and tells me he "just wants to sleep." However, he is arousable, and is able to tell me his birthdate, and daughter's name. He continues to work with physical therapy. Objective Physical Examination General Exam: Positive: Alert, Cooperative, No Acute Distress ENT Exam: Positive: Mucous membr. moist/pink; Negative: Atraumatic Neck Exam: Negative: JVD Chest Exam: Positive: Diminished Heart Exam: Positive: Rate Normal, Regular Rhythm, Normal S1, Normal S2 Abdomen Exam: Positive: Soft; Negative: Tenderness Extremity Exam: Negative: Tenderness Assessment /Plan Plan/VTE VTE Prophylaxis Ordered?: Yes Plan Chronic Indwelling Posadas Catheter associated Urinary tract infection Urine Culture notable for Proteus On Rocephin WBC has normalized, patient has remained afebrile We will cont to monitor Metabolic Encephalopathy 2/[address] Head negative for acute findings Patient being treated for UTI Mentation appears to wax and wane at times End-stage renal disease on hemodialysis Nephro on board for dialysis as scheduled Hypertension Cont Coreg Hypothyroidism Continue levothyroxine. Glaucoma Continue brimonidine and latanoprost eyedrops. History of Cerebrovascular accident Continue with aspirin. Not on Statin? Will defer to PCP DVT Prophylaxis Heparin SC Dispo--PFS on board for likely need of placement VS, I&O, 24H, Fishbone Vital Signs/I&O Vital Signs Date Time Temp Pulse Resp B/P (MAP) Pulse Ox O2 Delivery O2 Flow Rate FiO2 09/04/18 06:04 81 09/04/18 06:03 148/82 09/04/18 06:00 97.1 18 99 Room Air I&O- Last 24 Hours up to 6 AM 09/04/18 06:00 Intake Total 300 ml Output Total 0 ml Balance 300 ml Laboratory Data 24H LABS Laboratory Tests 2 09/04/18 06:00: Immature Granulocyte % (Auto) 2.7, White Blood Count 9.7, Red Blood Count 3.42L, Hemoglobin 11.2L, Hematocrit 35.3L, Mean Corpuscular Volume 103.2H, Mean Corpuscular Hemoglobin 32.7, Mean Corpuscular Hemoglobin Concent 31.7L, Red Cell Distribution Width 19.9H, Platelet Count 180, Neutrophils (%) (Auto) 46.8, Lymphocytes (%) (Auto) 12.7L, Monocytes (%) (Auto) 18.7H, Eosinophils (%) (Auto) 18.6H, Basophils (%) (Auto) 0.5, Neutrophils # (Auto) 4.5, Lymphocytes # (Auto) 1.2L, Monocytes # (Auto) 1.8H, Eosinophils # (Auto) 1.8H, Basophils # (Auto) 0.1, Nucleated Red Blood Cells % (auto) 0.0, Blood Urea Nitrogen 40H, Creatinine 8.77*H, Sodium Level 141, Potassium Level 4.5, Chloride Level 101, Carbon Dioxide Level 29, Anion Gap 11, Glomerular Filtration Rate 6.2L, Calcium Level 8.6L, Phosphorus Level 4.3, Albumin 2.7L CBC/BMP Laboratory Tests 09/04/18 06:00 Red Blood Count 3.42 L, Mean Corpuscular Volume 103.2 H, Mean Corpuscular Hemog lobin 32.7, Mean Corpuscular Hemoglobin Concent 31.7 L, Red Cell Distribution Width 19.9 H, Neutrophils (%) (Auto) 46.8, Lymphocytes (%) (Auto) 12.7 L, Monocytes (%) (Auto) 18.7 H, Eosinophils (%) (Auto) 18.6 H, Basophils (%) (Auto) 0.5, Neutrophils # (Auto) 4.5, Lymphocytes # (Auto) 1.2 L, Monocytes # (Auto) 1.8 H, Eosinophils # (Auto) 1.8 H, Basophils # (Auto) 0.1, Anion Gap 11 Microbiology Microbiology 08/28/18 Blood Culture - Final, Complete NO GROWTH AFTER 5 DAYS 08/28/18 Blood Culture - Final, Complete NO GROWTH AFTER 5 DAYS 08/28/18 Urine Culture - Final, Complete Proteus Mirabilis GERMANIA CHACON MD Sep 04, 2018 10:36
[2018-09-04] MEDS ORDERED: HEPARIN 1,000 UNITS/ML 10ML VIAL (FOR RADIOLOGY& DIALYSIS ONLY) IV ONE ×3 (11:00)
[2018-09-04] MEDS ORDERED: LIDOCAINE 1% SDV 5 ML VIAL SQ ONE ×2 (11:00)
[2018-09-04] MEDS ORDERED: HEPARIN 1,000 UNITS/ML 10ML VIAL (FOR RADIOLOGY& DIALYSIS ONLY) XX ONE ×2 (11:00)
--- NOTE | 2018-09-04 12:18 | IPNPDOC ---
Text Note Date of Service The patient was seen on 09/04/18. NOTE SUBJECTIVE: Patient was examined at bedside today. He was alert and eating b reakfast. He had no acute complaints OBJECTIVE: PHYSICAL EXAMINATION: VITAL SIGNS: See below GENERAL: Alert, awake, no apparent distress. HEAD AND NECK EXAM: Neck is supple no JVD CARDIOVASCULAR: S1, S2, regular rate. No edema of the bilateral lower extremities. RESPIRATORY: CTAB GENITOURINARY: Patient has an indwelling Posadas catheter LABORATORY REVIEW: See below ASSESSMENT AND PLAN: 1. End-stage renal disease on hemodialysis. Schedule for dialysis today 2. Hypertension with end-stage renal disease. Sable on current meds. D/C midodrine 3. Metabolic encephalopathy. Improved, with the switch of his antibiotics to IV. He was refusing P.O antibiotics early. Will continue to monitor 4. Urinary tract infection. IV Ceftriaxone, no fevers no leucocytosis 5. Anemia in end-stage renal disease. No need for Aranesp, Stable H and H. Will continue to monitor VS,Fishbone, I+O VS, Fishbone, I+O Laboratory Tests 09/04/18 06:00 Red Blood Count 3.42 L, Mean Corpuscular Volume 103.2 H, Mean Corpuscular Hemoglobin 32.7, Mean Corpuscular Hemoglobin Concent 31.7 L, Red Cell Distribution Width 19.9 H, Neutrophils (%) (Auto) 46.8, Lymphocytes (%) (Auto) 12.7 L, Monocytes (%) (Auto) 18.7 H, Eosinophils (%) (Auto) 18.6 H, Basophils (%) (Auto) 0.5, Neutrophils # (Auto) 4.5, Lymphocytes # (Auto) 1.2 L, Monocytes # (Auto) 1.8 H, Eosinophils # (Auto) 1.8 H, Basophils # (Auto) 0.1, Anion Gap 11 Vital Signs Date Time Temp Pulse Resp B/P (MAP) Pulse Ox O2 Delivery O2 Flow Rate FiO2 09/04/18 06:04 81 09/04/18 06:03 148/82 09/04/18 06:00 97.1 18 99 Room Air I&O- Last 24 Hours up to 6 AM 09/04/18 06:00 Intake Total 300 ml Output Total 0 ml Balance 300 ml GME ATTESTATION GME ATTESTATION My faculty preceptor for this patient encounter was physically present during the encounter and was fully available. All aspects of the patient interview, examination, medical decision making process, and medical care plan development were reviewed and approved by the faculty preceptor. The faculty preceptor is aware and concurs with the plan as stated in the body of this note and will attest to such by his/her cosignature. LISA NICOLAS DO Sep 04, 2018 12:18
[2018-09-04 14:35] VITALS: BP 160/74
[2018-09-04] MEDS: cefTRIAXone SOD 1 GM in D5W MINI-BAG PLUS 50 ML IV SCH (15:34)
[2018-09-04] MEDS: LATANOPROST 0.005% OPHTH SOLN 2.5 ML OU SCH (20:40)
[2018-09-04 22:00] VITALS: BP 110/57
[2018-09-05 06:00] VITALS: BP 120/59
[2018-09-05] MEDS: LEVOTHYROXINE 25MCG TABLET (0.025MG) PO SCH (06:13)
[2018-09-05] MEDS: HEPARIN SOD (PORCINE) 5000 UNITS/ML VIAL SC SCH ×3 (06:13→21:27)
[2018-09-05] MEDS: **hydrALAZINE HCL** 25 MG TAB PO SCH ×3 (06:14→21:27)
[2018-09-05] MEDS: (RENVELA) SEVELAMER **CARBONate** 800 MG TAB PO SCH ×3 (08:00→16:08)
[2018-09-05 08:43] LABS: HEMATOCRIT 35.9 % (42.0-52.0); HEMOGLOBIN 11.3 g/dl (13.5-17.5); MEAN CORPUSCULAR HEMOGLOBIN 32.6 pg (27.0-33.0); MEAN CORPUSCULAR HGB CONC 31.5 g/dl (32.0-36.5); MEAN CORPUSCULAR VOLUME 103.5 fl (80.0-96.0); PLATELET COUNT, AUTOMATED 142 10^3/uL (150-450); RED BLOOD COUNT 3.47 10^6/uL (4.30-6.10); WHITE BLOOD COUNT 9.5 10^3/uL (4.0-10.0)
[2018-09-05 09:08] LABS: CALCIUM LEVEL 8.8 MG/DL (8.8-10.2); CREATININE FOR GFR 6.17 MG/DL (0.70-1.30); GLOMERULAR FILTRATION RATE 9.3 (>35); POTASSIUM SERUM 4.4 MEQ/L (3.5-5.1)
[2018-09-05] MEDS: FOLIC ACID 1 MG TAB PO SCH (09:33)
[2018-09-05] MEDS: MEGESTROL SUSP 400 MG/10 ML UDC PO SCH (09:33)
[2018-09-05] MEDS: ASPIRIN 81 MG ENTERIC TAB PO SCH (09:33)
[2018-09-05] MEDS: BRIMONIDINE 0.1% OPHTH SOLN 5 ML OU SCH ×2 (09:34→20:28)
[2018-09-05] MEDS: CARVedilol 12.5 MG TAB PO SCH ×2 (09:34→20:29)
[2018-09-05 14:00] VITALS: BP 131/61
[2018-09-05] MEDS: cefTRIAXone SOD 1 GM in D5W MINI-BAG PLUS 50 ML IV SCH (15:19)
--- NOTE | 2018-09-05 16:13 | IPN ---
DATE: 09/05/2018 SUBJECTIVE: The patient is seen and examined in the room today with his daughter. The patient is resting comfortably during the encounter. No events reported. I had a long discussion with the patient's daughter, who stated that she used to take care of the patient prior to the current admission; however, she has been feeling very exhausted and she does not feel that she has the capacity to take care of the patient anymore. She is in the process of looking for usp placement for the patient. OBJECTIVE: VITAL SIGNS: Temperature 97.1, pulse is 71, respirations 16, blood pressure 120/59, pulse oximetry 95% on room air. GENERAL: The patient is alert and awake, no sign of distress. HEENT: Normocephalic, atraumatic. CARDIOVASCULAR: Positive S1, S2. Regular rate. LUNGS: Clear to auscultation bilaterally. ABDOMEN: Soft, nontender. EXTREMITIES: No edema. LABORATORY DATA: WBC 9.5, hemoglobin 11.3, hematocrit 35.9, platelet count is 142. Sodium is 141, potassium 4.4, chloride 100, carbon dioxide 31, BUN 25, creatinine 6.17, GFR is 9.3, fasting glucose is 86, calcium is 8.8, magnesium 2.0. ASSESSMENT AND PLAN: 1. Urinary tract infection (UTI) secondary to chronic indwelling Posadas catheter. Urine culture from 08/28/2018 is positive for Proteus. Currently, the patient is on Rocephin. According to the patient's daughter, the patient's mentation may not be at baseline at this moment. Continue current treatment. 2. Metabolic encephalopathy secondary to urinary tract infection (UTI). Continue UTI treatment. Continue to monitor the patient. CT of the head on admission was negative. According to the patient's daughter, the patient may carry some baseline dementia. 3. End stage renal disease on hemodialysis. Nephrology consultation, appreciate their assistance. 4. Hypertension. Blood pressure in the satisfactory range. On Coreg, hydralazine. 5. Hypothyroidism. On Synthroid. 6. History of CVA. On aspirin. 7. Deep vein thrombosis (DVT) prophylaxis. On heparin.
--- NOTE | 2018-09-05 19:06 | IPNPDOC ---
Text Note Date of Service The patient was seen on 09/05/18. NOTE SUBJECTIVE: Patient was examined at bedside. He was sleeping comfortably and had to be awakened for exam. He was alert and responsive and able to follow commands. He had no acute complaints. No overnight activity was reported. OBJECTIVE: PHYSICAL EXAMINATION: VITAL SIGNS: See below GENERAL: Resting comfortably. No apparent distress, able to follow commands, alert and oriented 3 HEAD AND NECK EXAM: Neck is supple no JVD CARDIOVASCULAR: S1, S2, regular rate. No edema of the bilateral lower extremities. RESPIRATORY: CTAB ABDOMINAL: Bowel sounds present in all 4 quadrants, no tenderness LABORATORY REVIEW: See below ASSESSMENT AND PLAN: 1. End-stage renal disease on hemodialysis. He had dialysis yesterday. Tolerated the procedure without any difficulty 2. Hypertension with end-stage renal disease. Continue current meds 3. Metabolic encephalopathy. Improved with IV medication ( Ceftriaxone day 3) 4. Urinary tract infection. IV Ceftriaxone, no fevers no leucocytosis 5. Anemia in end-stage renal disease. No need for Aranesp, Stable H and H. Will continue to monitor VS,Fishbone, I+O VS, Fishbone, I+O Vital Signs Date Time Temp Pulse Resp B/P (MAP) Pulse Ox O2 Delivery O2 Flow Rate FiO2 09/05/18 06:14 145/76 09/05/18 06:00 97.1 71 16 95 Room Air I&O- Last 24 Hours up to 6 AM 09/05/18 05:59 Intake Total 400 ml Output Total 75 ml Balance 325 ml GME ATTESTATION GME ATTESTATION My faculty preceptor for this patient encounter was physically present during the encounter and was fully available. All aspects of the patient interview, examination, medical decision making process, and medical care plan development were reviewed and approved by the faculty preceptor. The faculty preceptor is aware and concurs with the plan as stated in the body of this note and will attest to such by his/her cosignature. LISA NICOLAS DO Sep 05, 2018 07:32
[2018-09-05] MEDS: LATANOPROST 0.005% OPHTH SOLN 2.5 ML OU SCH (20:29)
[2018-09-05 22:00] VITALS: BP 151/69
[2018-09-06 06:00] VITALS: BP 148/67
[2018-09-06 06:27] LABS: HEMATOCRIT 34.9 % (42.0-52.0); HEMOGLOBIN 11.1 g/dl (13.5-17.5); MEAN CORPUSCULAR HEMOGLOBIN 32.2 pg (27.0-33.0); MEAN CORPUSCULAR HGB CONC 31.8 g/dl (32.0-36.5); MEAN CORPUSCULAR VOLUME 101.2 fl (80.0-96.0); PLATELET COUNT, AUTOMATED 156 10^3/uL (150-450); RED BLOOD COUNT 3.45 10^6/uL (4.30-6.10); WHITE BLOOD COUNT 9.8 10^3/uL (4.0-10.0)
[2018-09-06] MEDS: MEGESTROL SUSP 400 MG/10 ML UDC PO SCH (06:27)
[2018-09-06] MEDS: CARVedilol 12.5 MG TAB PO SCH ×2 (06:27→21:40)
[2018-09-06] MEDS: (RENVELA) SEVELAMER **CARBONate** 800 MG TAB PO SCH ×3 (06:27→14:45)
[2018-09-06] MEDS: ASPIRIN 81 MG ENTERIC TAB PO SCH (06:28)
[2018-09-06] MEDS: HEPARIN SOD (PORCINE) 5000 UNITS/ML VIAL SC SCH ×3 (06:28→21:42)
[2018-09-06] MEDS: FOLIC ACID 1 MG TAB PO SCH (06:28)
[2018-09-06] MEDS: **hydrALAZINE HCL** 25 MG TAB PO SCH ×3 (06:28→21:41)
[2018-09-06] MEDS: LEVOTHYROXINE 25MCG TABLET (0.025MG) PO SCH (06:28)
[2018-09-06 06:50] LABS: CALCIUM LEVEL 9.1 MG/DL (8.8-10.2); CREATININE FOR GFR 7.55 MG/DL (0.70-1.30); GLOMERULAR FILTRATION RATE 7.3 (>35); POTASSIUM SERUM 4.2 MEQ/L (3.5-5.1)
[2018-09-06] MEDS: BRIMONIDINE 0.1% OPHTH SOLN 5 ML OU SCH ×2 (07:52→21:41)
[2018-09-06] MEDS ORDERED: HEPARIN 1,000 UNITS/ML 10ML VIAL (FOR RADIOLOGY& DIALYSIS ONLY) XX ONE (12:30)
[2018-09-06] MEDS ORDERED: LIDOCAINE 1% SDV 5 ML VIAL SQ ONE (12:30)
[2018-09-06] MEDS ORDERED: HEPARIN 1,000 UNITS/ML 10ML VIAL (FOR RADIOLOGY& DIALYSIS ONLY) IV ONE (12:30)
[2018-09-06 14:00] VITALS: BP 143/65
[2018-09-06] MEDS: cefTRIAXone SOD 1 GM in D5W MINI-BAG PLUS 50 ML IV SCH (14:00)
--- NOTE | 2018-09-06 17:10 | IPNPDOC ---
Text Note Date of Service The patient was seen on 09/06/18. NOTE SUBJECTIVE: Patient was examined doing dialysis, he was resting comfortably in bed. Patient is hard of hearing, requiring to be spoken to in loud volume. During today's interview patient was responsive, however, his responses were inappropriate, this is a sharp contrast from 09/04/2018, when patient was alert, oriented was having breakfast by himself. He appeared sleepy, but arousable, and was unable to carry a conversation during interview. He did not appear to be any distress. OBJECTIVE: PHYSICAL EXAMINATION: VITAL SIGNS: See below GENERAL: Resting comfortably in a dialysis bed, arousable, however, unable to carry conversation, not orientated to person, place or time HEAD AND NECK EXAM: No JVD, no thyromegaly, neck is supple CARDIOVASCULAR: S1, S2, regular rate. No edema of the bilateral lower extremities. RESPIRATORY: Clear to auscultate anteriorly and posteriorly, no use of accessory muscles ABDOMINAL: Bowel sounds present in all 4 quadrants, no tenderness LABORATORY REVIEW: See below ASSESSMENT AND PLAN: 1. End-stage renal disease on hemodialysis. Currently undergoing dialysis. 2. Hypertension with end-stage renal disease. Continue current meds 3. Metabolic encephalopathy. Had been improving, but today's presentation patient was sleepy, lethargic, not answering questions appropriately. He remains afebrile and he is currently on IV antibiotics for UTI. His mental status waxing and waning will require further workup. Discussed patient's current medication with hospitalist. 4. Urinary tract infection. IV Ceftriaxone, no fevers, no signs of overt infection, leukocytosis continues to trend down 5. Anemia in end-stage renal disease. Does not Aranesp, Stable H and H. Will continue to monitor VS,Fishbone, I+O VS, Fishbone, I+O Laboratory Tests 09/06/18 06:13 Red Blood Count 3.45 L, Mean Corpuscular Volume 101.2 H, Mean Corpuscular Hemoglobin 32.2, Mean Corpuscular Hemoglobin Concent 31.8 L, Red Cell Distribution Width 19.6 H, Calcium Level 9.1 Vital Signs Date Time Temp Pulse Resp B/P (MAP) Pulse Ox O2 Delivery O2 Flow Rate FiO2 09/06/18 14:00 150/62 09/06/18 14:00 97.5 84 16 99 Room Air I&O- Last 24 Hours up to 6 AM0 09/06/18 06:00 Intake Total 1320 ml Output Total 0 ml Balance 1320 ml GME ATTESTATION GME ATTESTATION My faculty preceptor for this patient encounter was physically present during the encounter and was fully available. All aspects of the patient interview, examination, medical decision making process, and medical care plan development were reviewed and approved by the faculty preceptor. The faculty preceptor is aware and concurs with the plan as stated in the body of this note and will attest to such by his/her cosignature. LISA NICOLAS DO Sep 06, 2018 17:10
--- NOTE | 2018-09-06 19:17 | IPNPDOC ---
Text Note Date of Service The patient was seen on 09/06/18. NOTE SUBJECTIVE: The patient is seen and examined today. Patients knows the location and name of president. However, he could not recall the year. No event is reported. OBJECTIVE: VITAL SIGNS: Listed below. GENERAL: The patient is alert and awake, no sign of distress. HEENT: Normocephalic, atraumatic. CARDIOVASCULAR: Positive S1, S2. Regular rate. LUNGS: Clear to auscultation bilaterally. ABDOMEN: Soft, nontender. EXTREMITIES: No edema. LABORATORY DATA: Listed below. ASSESSMENT AND PLAN: #. Urinary tract infection (UTI) secondary to chronic indwelling Posadas ekn ter. - Urine culture from 08/28/2018 is positive for Proteus. Currently, the patient is on Rocephin. - Follow up with repeated UA. #. Metabolic encephalopathy secondary to urinary tract infection (UTI). - Continue UTI treatment. Continue to access the patient's mentation. CT of the head on admission was negative. According to the patient's daughter, the patient may carry some baseline dementia. #. End stage renal disease on hemodialysis. Nephrology consultation, appreciate their assistance. Last dialysis on 09/06/18 #. Hypertension. Blood pressure in the satisfactory range. On Coreg, hydralazine. #. Hypothyroidism. On Synthroid. #. History of CVA. On aspirin. #. Deep vein thrombosis (DVT) prophylaxis. On heparin. VS,Fishbone, I+O VS, Fishbone, I+O Laboratory Tests 09/06/18 06:13 Red Blood Count 3.45 L, Mean Corpuscular Volume 101.2 H, Mean Corpuscular Hemoglobin 32.2, Mean Corpuscular Hemoglobin Concent 31.8 L, Red Cell Distribution Width 19.6 H, Calcium Level 9.1 Vital Signs Date Time Temp Pulse Resp B/P (MAP) Pulse Ox O2 Delivery O2 Flow Rate FiO2 09/06/18 14:00 150/62 09/06/18 14:00 97.5 84 16 99 Room Air I&O- Last 24 Hours up to 6 AM 09/06/18 06:00 Intake Total 1320 ml Output Total 0 ml Balance 1320 ml KAREN MARTINEZ DO Sep 06, 2018 19:17
[2018-09-06] MEDS: LATANOPROST 0.005% OPHTH SOLN 2.5 ML OU SCH (21:41)
[2018-09-06 22:00] VITALS: BP 156/69
[2018-09-07] MEDS: **hydrALAZINE HCL** 25 MG TAB PO SCH ×2 (05:41→14:58)
[2018-09-07] MEDS: LEVOTHYROXINE 25MCG TABLET (0.025MG) PO SCH (05:42)
[2018-09-07] MEDS: HEPARIN SOD (PORCINE) 5000 UNITS/ML VIAL SC SCH ×3 (05:42→21:10)
[2018-09-07 06:00] VITALS: BP 136/64
[2018-09-07 06:23] LABS: HEMATOCRIT 33.4 % (42.0-52.0); HEMOGLOBIN 10.7 g/dl (13.5-17.5); MEAN CORPUSCULAR HEMOGLOBIN 32.1 pg (27.0-33.0); MEAN CORPUSCULAR VOLUME 100.3 fl (80.0-96.0); PLATELET COUNT, AUTOMATED 131 10^3/uL (150-450); RED BLOOD COUNT 3.33 10^6/uL (4.30-6.10); WHITE BLOOD COUNT 7.1 10^3/uL (4.0-10.0)
[2018-09-07 06:48] LABS: CREATININE FOR GFR 5.08 MG/DL (0.70-1.30); GLOMERULAR FILTRATION RATE 11.6 (>35); MAGNESIUM LEVEL 2.1 MG/DL (1.8-2.4); POTASSIUM SERUM 4.5 MEQ/L (3.5-5.1)
[2018-09-07] MEDS: (RENVELA) SEVELAMER **CARBONate** 800 MG TAB PO SCH ×3 (08:00→14:59)
[2018-09-07] MEDS: FOLIC ACID 1 MG TAB PO SCH (08:54)
[2018-09-07] MEDS: CARVedilol 12.5 MG TAB PO SCH ×2 (08:54→21:09)
[2018-09-07] MEDS: MEGESTROL SUSP 400 MG/10 ML UDC PO SCH (08:54)
[2018-09-07] MEDS: BRIMONIDINE 0.1% OPHTH SOLN 5 ML OU SCH ×2 (08:54→21:10)
[2018-09-07] MEDS: ASPIRIN 81 MG ENTERIC TAB PO SCH (08:54)
[2018-09-07] MEDS ORDERED: IPRATROPIUM 0.5MG/ALBUTEROL 2.5MG INH SOL UD 3ML (DUONEB)(J7620) INH PRN (12:00)
[2018-09-07 14:00] VITALS: BP 128/60
--- NOTE | 2018-09-07 14:02 | REP ---
CT Head without contrast HISTORY: Altered mental status COMPARISON: 08/28/2018 Areas of decreased attenuation are present in the periventricular and subcortical white matter. This represents small-vessel ischemic disease. There is no intraparenchymal hemorrhage, acute infarct, mass or midline shift. The ventricular system and cortical sulci as well as subarachnoid space in the posterior fossa are dilated consistent with moderate volume loss. There is no extra cerebral collection. There is no fracture. The visualized sinuses are clear. Punctate metallic densities are present in the globes. IMPRESSION: 1. Small vessel ischemic disease. 2. Moderate volume loss. Electronically Signed by Timur Jurado MD 09/07/2018 01:53 P
[2018-09-07] MEDS: cefTRIAXone SOD 1 GM in D5W MINI-BAG PLUS 50 ML IV SCH (14:58)
--- NOTE | 2018-09-07 15:16 | REP ---
Chest one-view HISTORY: Shortness of breath Comparison: 08/28/2018 An increase in interstitial markings is present in the lungs consistent with chronic interstitial change. The cardiac silhouette is enlarged. The pulmonary vasculature is normal in appearance. Impression: 1. Chronic interstitial change. 2. Cardiomegaly. Electronically Signed by Timur Jurado MD 09/07/2018 03:08 P
--- NOTE | 2018-09-07 16:26 | IPNPDOC ---
Text Note Date of Service The patient was seen on 09/07/18. NOTE SUBJECTIVE: The patient is seen and examined today. Patients continues demonstrating waxing and weaning of his mentation. He can recall the place and name of president but he still can not recall the year or month. Denies fever or chill. Patient also noted to have itchy red eyes. OBJECTIVE: VITAL SIGNS: Listed below. GENERAL: The patient is alert and awake, no sign of distress. HEENT: Red conjunctiva. Normocephalic, atraumatic. CARDIOVASCULAR: Positive S1, S2. Regular rate. LUNGS: Clear to auscultation bilaterally. ABDOMEN: Soft, nontender. EXTREMITIES: No edema. LABORATORY DATA: Listed below. ASSESSMENT AND PLAN: #. Metabolic encephalopathy - secondary to urinary tract infection (UTI). Continue UTI treatment. CT of the head on admission was negative. Patient has baseline dementia. - Medication reviewed. Hydralazine discontinued. #. Urinary tract infection (UTI) secondary to chronic indwelling Posadas catheter. - Urine culture from 08/28/2018 is positive for Proteus. Currently, the patient is on Rocephin. - Follow up with repeated UA. #. End stage renal disease on hemodialysis. Nephrology consultation, appreciate their assistance. Last dialysis on 09/06/18 #. Hypertension. Blood pressure in the satisfactory range. On Coreg. hydra lazine discontinued. #. Hypothyroidism. On Synthroid. #. History of CVA. On aspirin. #. Deep vein thrombosis (DVT) prophylaxis. On heparin. VS,Fishbone, I+O VS, Fishbone, I+O Laboratory Tests 09/07/18 05:47 Red Blood Count 3.33 L, Mean Corpuscular Volume 100.3 H, Mean Corpuscular Hemoglobin 32.1, Mean Corpuscular Hemoglobin Concent 32.0, Red Cell Distribution Width 19.1 H, Calcium Level 9.0 Vital Signs Date Time Temp Pulse Resp B/P (MAP) Pulse Ox O2 Delivery O2 Flow Rate FiO2 09/07/18 14:58 142/65 09/07/18 14:00 97.9 74 18 99 Room Air I&O- Last 24 Hours up to 6 AM 09/07/18 06:00 Intake Total 60 ml Output Total 500 ml Balance -440 ml KAREN MARTINEZ DO Sep 07, 2018 16:26
--- NOTE | 2018-09-07 17:13 | IPNPDOC ---
Text Note Date of Service The patient was seen on 09/07/18. NOTE SUBJECTIVE: Patient was examined this morning at bedside. He was accompanied by his daughter. He was alert, and conversant. Daughter noticed patient has had waxing and waning level of alertness, and orientation. She inquired about the possibility of a stroke with patient. Patient was not in any apparent distress. He has daily help with feeding to patient's poor by mouth intake . When he is on alert and unaware of his situation. He continues to be on by mouth antibiotics IMAGING: CT Head: No fractures, no extra cerebral collection, small vessel ischemic disease, moderate volume loss Chest xray: Chronic interstitial change, cardiomegaly OBJECTIVE: PHYSICAL EXAMINATION: VITAL SIGNS: See below GENERAL: Sitting comfortably in the chair by the window, accompanied by his daughter, smiling and conversant. Did not appear drowsy HEAD AND NECK EXAM: No JVD, no thyromegaly, neck is supple CARDIOVASCULAR: S1, S2, regular rate. No edema of the bilateral lower extremities. RESPIRATORY: Very mild wheezing heard on auscultation, no wheezes. Assessment muscle, no rhonchi, no crackles ABDOMINAL: Bowel sounds present in all 4 quadrants, no tenderness, no guarding, no rebound LABORATORY REVIEW: See below ASSESSMENT AND PLAN: 1. End-stage renal disease on hemodialysis. Underwent hemodialysis yesterday, tolerated procedure without any difficulty. A total of 500 ml fluid was removed. 2. Hypertension with end-stage renal disease. Continue current meds 3. Metabolic encephalopathy. During interview today patient was alert, he was orientated, he was pleasant. Daughter stated that she has noticed father has waxing and waning level of alertness, and orientation. She was concerned about the possibility of stroke or infectious pathology. CT of the head was ordered, CT was negative, chest x-ray was also ordered. Chest x-ray was negative. Patient continues to be afebrile. No white count noted. 4. Urinary tract infection. IV Ceftriaxone, no fevers, no signs of overt infection, WBC within normal limit 5. Anemia in end-stage renal disease. Does not require Aranesp, Stable H and H. Will continue to monitor Disposition. Patient will continue with his rehabilitation at [place] after discharge VS,Michele, I+O VS, Michele, I+O Laboratory Tests 09/07/18 05:47 Red Blood Count 3.33 L, Mean Corpuscular Volume 100.3 H, Mean Corpuscular Hemoglobin 32.1, Mean Corpuscular Hemoglobin Concent 32.0, Red Cell Distribution Width 19.1 H, Calcium Level 9.0 Vital Signs Date Time Temp Pulse Resp B/P (MAP) Pulse Ox O2 Delivery O2 Flow Rate FiO2 09/07/18 14:58 142/65 09/07/18 14:00 97.9 74 18 99 Room Air I&O- Last 24 Hours up to 6 AM 09/07/18 06:00 Intake Total 60 ml Output Total 500 ml Balance -440 ml GME ATTESTATION GME ATTESTATION My faculty preceptor for this patient encounter was physically present during the encounter and was fully available. All aspects of the patient interview, examination, medical decision making process, and medical care plan development were reviewed and approved by the faculty preceptor. The faculty preceptor is aware and concurs with the plan as stated in the body of this note and will attest to such by his/her cosignature. LISA NICOLAS DO Sep 07, 2018 17:13
[2018-09-07] MEDS: LATANOPROST 0.005% OPHTH SOLN 2.5 ML OU SCH (21:10)
[2018-09-07 22:00] VITALS: BP 144/65
[2018-09-08] MEDS: CARVedilol 12.5 MG TAB PO SCH ×2 (05:49→20:41)
[2018-09-08] MEDS: (RENVELA) SEVELAMER **CARBONate** 800 MG TAB PO SCH ×3 (05:49→14:51)
[2018-09-08] MEDS: HEPARIN SOD (PORCINE) 5000 UNITS/ML VIAL SC SCH ×3 (05:50→20:51)
[2018-09-08] MEDS: LEVOTHYROXINE 25MCG TABLET (0.025MG) PO SCH (05:50)
[2018-09-08] MEDS: ASPIRIN 81 MG ENTERIC TAB PO SCH (05:50)
[2018-09-08] MEDS: FOLIC ACID 1 MG TAB PO SCH (05:50)
[2018-09-08] MEDS: MEGESTROL SUSP 400 MG/10 ML UDC PO SCH (05:50)
[2018-09-08] MEDS: BRIMONIDINE 0.1% OPHTH SOLN 5 ML OU SCH ×2 (05:51→20:37)
[2018-09-08 06:00] VITALS: BP 146/60
[2018-09-08 07:00] LABS: HEMATOCRIT 32.6 % (42.0-52.0); HEMOGLOBIN 10.4 g/dl (13.5-17.5); MEAN CORPUSCULAR HEMOGLOBIN 31.8 pg (27.0-33.0); MEAN CORPUSCULAR HGB CONC 31.9 g/dl (32.0-36.5); MEAN CORPUSCULAR VOLUME 99.7 fl (80.0-96.0); PLATELET COUNT, AUTOMATED 148 10^3/uL (150-450); RED BLOOD COUNT 3.27 10^6/uL (4.30-6.10); WHITE BLOOD COUNT 7.7 10^3/uL (4.0-10.0)
[2018-09-08 07:35] LABS: CALCIUM LEVEL 8.7 MG/DL (8.8-10.2); CREATININE FOR GFR 6.82 MG/DL (0.70-1.30); GLOMERULAR FILTRATION RATE 8.2 (>35); MAGNESIUM LEVEL 2.1 MG/DL (1.8-2.4); POTASSIUM SERUM 4.7 MEQ/L (3.5-5.1); THYROID STIMULATING HORMONE 2.13 uIU/ML (0.358-3.740)
[2018-09-08 07:36] LABS: FREE T4 1.19 NG/DL (0.76-1.46)
[2018-09-08] MEDS ORDERED: HEPARIN 1,000 UNITS/ML 10ML VIAL (FOR RADIOLOGY& DIALYSIS ONLY) IV ONE (11:00)
[2018-09-08] MEDS ORDERED: DARBEPOETIN 100 MCG/0.5 ML *DIALYSIS* SYRINGE (J0882) IV SCH (11:45)
[2018-09-08 14:00] VITALS: BP 107/67
--- NOTE | 2018-09-08 17:18 | IPNPDOC ---
Text Note Date of Service The patient was seen on 09/08/18. NOTE SUBJECTIVE: Patient was examined during dialysis today, he was resting comfortably in bed, however he appeared drowsy, minimally responsive and confused. He was oriented to person or place. He did, however, appeared not to be in acute distress. OBJECTIVE: PHYSICAL EXAMINATION: VITAL SIGNS: See below GENERAL: Sitting comfortably in the chair by the window, accompanied by his daughter, smiling and conversant. Did not appear drowsy HEAD AND NECK EXAM: No JVD, no thyromegaly, neck is supple CARDIOVASCULAR: S1, S2, regular rate. No edema of the bilateral lower extremities. RESPIRATORY: Very mild wheezing heard on auscultation, no wheezes. Assessment muscle, no rhonchi, no crackles ABDOMINAL: Bowel sounds present in all 4 quadrants, no tenderness, no guarding, no rebound LABORATORY REVIEW: See below ASSESSMENT AND PLAN: 1. End-stage renal disease on hemodialysis. Currently undergoing hemodialysis, as part of his regular schedule Tuesday, Tuesday, Tuesday dialysis. 2. Hypertension in end-stage renal disease, his hydralazine was discontinued, as perhaps the offending agent to patient's continued waxing and waning mentation. Blood pressure appears to be stable. We'll continue to monitor 3. Metabolic encephalopathy. During the visit today patient was drowsy, not orientated person, place or time. This is part of patient's ongoing waxing and waning state. Cognition and orientation. The patient's primary team has discontinued his hydralazine as perhaps the offending agent. We'll continue to monitor. His metabolic encephalopathy is currently presumed to be secondary to his UTI. Continues to be on IV ceftriaxone., Consider worsening patient's basel ine dementia, or delirium due to his hospital setting. 4. Urinary tract infection. IV Ceftriaxone, normal WBC, repeat UA today shows 3+ protein, glucose, 3+ leukocyte esterase, WBC of 27, 113 RBCs with 1+ bacteria. This is an improvement over his initial UA which showed multiple bacteria, small leukocyte esterase and moderate WBCs. Continues to be afebrile. 5. Anemia in end-stage renal disease. Does not require Aranesp, Stable H and H. Will continue to monitor Disposition. Patient will continue with his rehabilitation at [place] after discharge VS,Sarahe, I+O VS, Fishbone, I+O Laboratory Tests 1/18/19 06:22 Red Blood Count 3.27 L, Mean Corpuscular Volume 99.7 H, Mean Corpuscular Hemoglobin 31.8, Mean Corpuscular Hemoglobin Concent 31.9 L, Red Cell Distribution Width 18.7 H, Calcium Level 8.7 L Vital Signs Date Time Temp Pulse Resp B/P (MAP) Pulse Ox O2 Delivery O2 Flow Rate FiO2 09/08/18 14:00 97.2 69 19 107/67 (80) 92 Room Air I&O- Last 24 Hours up to 6 AM 09/08/18 06:00 Intake Total 900 ml Output Total 75 ml Balance 825 ml GME ATTESTATION GME ATTESTATION My faculty preceptor for this patient encounter was physically present during the encounter and was fully available. All aspects of the patient interview, examination, medical decision making process, and medical care plan development were reviewed and approved by the faculty preceptor. The faculty preceptor is aware and concurs with the plan as stated in the body of this note and will attest to such by his/her cosignature. LISA NICOLAS DO Sep 08, 2018 17:04
--- NOTE | 2018-09-08 19:26 | IPNPDOC ---
Text Note Date of Service The patient was seen on 09/08/18. NOTE SUBJECTIVE: The patient is seen and examined today after dialysis. Patient remembers the month and name of president. He really can not recall the place and year. Patient denies acute complaint. No agitation is noted. Denies fever or chill. OBJECTIVE: VITAL SIGNS: Listed below. GENERAL: The patient is alert and awake, no sign of distress. HEENT: Red conjunctiva. Normocephalic, atraumatic. CARDIOVASCULAR: Positive S1, S2. Regular rate. LUNGS: Clear to auscultation bilaterally. ABDOMEN: Soft, nontender. EXTREMITIES: No edema. LABORATORY DATA: Listed below. ASSESSMENT AND PLAN: #. Metabolic encephalopathy - secondary to urinary tract infection (UTI). S/P UTI treatment. CT of the heads were negative. Normal T4. Urine toxicology negative. Glucose level has been normal. Normal ammonia level. Patient has baseline dementia. - Medication reviewed. hydralazine discontinued. #. Urinary tract infection (UTI) secondary to chronic indwelling Posadas catheter. - Urine culture from 08/28/2018 is positive for Proteus. S/P Rocephin. - Repeated UA demonstrates improvement. #. End stage renal disease on hemodialysis. Nephrology consultation, appreciate their assistance. Last dialysis on 09/08/18 #. Hypertension. Blood pressure in the satisfactory range. On Coreg. hydralazine discontinued. #. Hypothyroidism. On Synthroid. #. History of CVA. On aspirin. #. Deep vein thrombosis (DVT) prophylaxis. On heparin. VS,Fishbone, I+O VS, Fishbone, I+O Laboratory Tests 09/08/18 06:22 Red Blood Count 3.27 L, Mean Corpuscular Volume 99.7 H, Mean Corpuscular Hemoglobin 31.8, Mean Corpuscular Hemoglobin Concent 31.9 L, Red Cell Distribution Width 18.7 H, Calcium Level 8.7 L Vital Signs Date Time Temp Pulse Resp B/P (MAP) Pulse Ox O2 Delivery O2 Flow Rate FiO2 09/08/18 14:00 97.2 69 19 107/67 (80) 92 Room Air I&O- Last 24 Hours up to 6 AM 09/08/18 06:00 Intake Total 900 ml Output Total 75 ml Balance 825 ml KAREN MARTINEZ DO Sep 08, 2018 19:26
[2018-09-08] MEDS: LATANOPROST 0.005% OPHTH SOLN 2.5 ML OU SCH (20:39)
[2018-09-08 22:00] VITALS: BP 160/70
[2018-09-09] MEDS: LEVOTHYROXINE 25MCG TABLET (0.025MG) PO SCH (05:51)
[2018-09-09] MEDS: HEPARIN SOD (PORCINE) 5000 UNITS/ML VIAL SC SCH ×3 (05:51→21:07)
[2018-09-09 06:00] VITALS: BP 148/77
[2018-09-09 06:11] LABS: HEMATOCRIT 33.2 % (42.0-52.0); HEMOGLOBIN 10.4 g/dl (13.5-17.5); MEAN CORPUSCULAR HEMOGLOBIN 31.9 pg (27.0-33.0); MEAN CORPUSCULAR HGB CONC 31.3 g/dl (32.0-36.5); MEAN CORPUSCULAR VOLUME 101.8 fl (80.0-96.0); PLATELET COUNT, AUTOMATED 134 10^3/uL (150-450); RED BLOOD COUNT 3.26 10^6/uL (4.30-6.10); WHITE BLOOD COUNT 6.4 10^3/uL (4.0-10.0)
[2018-09-09 06:37] LABS: CALCIUM LEVEL 8.5 MG/DL (8.8-10.2); CREATININE FOR GFR 4.13 MG/DL (0.70-1.30); GLOMERULAR FILTRATION RATE 14.7 (>35); MAGNESIUM LEVEL 2.1 MG/DL (1.8-2.4)
[2018-09-09] MEDS: (RENVELA) SEVELAMER **CARBONate** 800 MG TAB PO SCH ×4 (08:00→18:15)
[2018-09-09] MEDS: FOLIC ACID 1 MG TAB PO SCH (09:26)
[2018-09-09] MEDS: BRIMONIDINE 0.1% OPHTH SOLN 5 ML OU SCH ×2 (09:26→21:00)
[2018-09-09] MEDS: CARVedilol 12.5 MG TAB PO SCH ×2 (09:26→21:00)
[2018-09-09] MEDS: MEGESTROL SUSP 400 MG/10 ML UDC PO SCH (09:26)
[2018-09-09] MEDS: ASPIRIN 81 MG ENTERIC TAB PO SCH (09:26)
--- NOTE | 2018-09-09 13:50 | IPNPDOC ---
Text Note Date of Service The patient was seen on 09/09/18. NOTE SUBJECTIVE: Patient was seen, examined at bedside. He was alert, he was conversant, he was able to follow commands. He was eating breakfast earlier this morning unassisted. He had no acute complaints. OBJECTIVE: PHYSICAL EXAMINATION: VITAL SIGNS: See below GENERAL: Alert, pleasant, conversant, follows commands, elderly gentleman, appears stated age, HEAD AND NECK EXAM: Neck is supple, no JVD, head is atraumatic, oral mucosa is moist, no signs of trauma to head or neck CARDIOVASCULAR: S1, S2, regular rate. No edema of the bilateral lowerextremities. LUNGS: Clear to auscultate bilaterally anterior and posterior, no wheezing, no rhonchi ABDOMINAL: Bowel sounds present, tenderness, no organomegaly LABORATORY REVIEW: See below ASSESSMENT AND PLAN: 1. End-stage renal disease on hemodialysis. He has hemodialysis scheduled Tuesday, Tuesday and Tuesday. He underwent dialysis yesterday. A total of 400 mL of fluid was removed. He does not appear to be any respiratory distress, he does not appear fluid overloaded. We'll continue to monitor. 2. Hypertension in end-stage renal disease, currently stable, his hydralazine was discontinued yesterday. Continues to be on Coreg 3. Metabolic encephalopathy. He appears to be alert, conversant, and able to follow commands today. This is in juxtaposition to his drowsiness and confusion yesterday. He has completed his antibiotic course, we'll continue to monitor. His mentation waxing and waning is most likely attributed to patient's dementia and acute delirium. 4. Urinary tract infection. Has completed his antibiotic course. He remains afebrile. 5. Anemia in end-stage renal disease. Stable H&H. Current hemoglobin is 10.4, current hematocrit is 33.2 Disposition. Patient will continue with his rehabilitation at [place] after discharge VSMichele, I+O VSMichele, I+O Laboratory Tests 09/09/18 05:48 Red Blood Count 3.26 L, Mean Corpuscular Volume 101.8 H, Mean Corpuscular Hemoglobin 31.9, Mean Corpuscular Hemoglobin Concent 31.3 L, Red Cell Distribut ion Width 18.0 H, Calcium Level 8.5 L Vital Signs Date Time Temp Pulse Resp B/P (MAP) Pulse Ox O2 Delivery O2 Flow Rate FiO2 09/09/18 09:26 83 148/77 09/09/18 06:00 97.2 17 95 Room Air I&O- Last 24 Hours up to 6 AM 09/09/18 06:00 Intake Total 660 ml Output Total 400 ml Balance 260 ml GME ATTESTATION GME ATTESTATION My faculty preceptor for this patient encounter was physically present during the encounter and was fully available. All aspects of the patient interview, examination, medical decision making process, and medical care plan development were reviewed and approved by the faculty preceptor. The faculty preceptor is aware and concurs with the plan as stated in the body of this note and will attest to such by his/her cosignature. LISA NICOLAS DO Sep 09, 2018 13:50
--- NOTE | 2018-09-09 17:32 | IPNPDOC ---
Text Note Date of Service The patient was seen on 09/09/18. NOTE SUBJECTIVE: The patient is seen and examined today. Patient is not fully oriented during the encounter. Patient denies acute complaint. Denies fever or chill. No agitation is noted. OBJECTIVE: VITAL SIGNS: Listed below. GENERAL: The patient is alert and awake, no sign of distress. HEENT: Red conjunctiva. Normocephalic, atraumatic. CARDIOVASCULAR: Positive S1, S2. Regular rate. LUNGS: Clear to auscultation bilaterally. ABDOMEN: Soft, nontender. EXTREMITIES: No edema. LABORATORY DATA: Listed below. ASSESSMENT AND PLAN: #. Metabolic encephalopathy - secondary to urinary tract infection (UTI). S/P UTI treatment. - CT of the heads were negative. Normal T4. Urine toxicology negative. Glucose level has been normal. Normal ammonia level. Patient has baseline dementia. - Medication reviewed. Hydralazine discontinued. #. Urinary tract infection (UTI) secondary to chronic indwelling Posadas catheter. - Urine culture from 08/28/2018 is positive for Proteus. S/P Rocephin. - Repeated UA demonstrates improvement. #. End stage renal disease on hemodialysis. Nephrology consultation, appreciate their assistance. Last dialysis on 09/08/18 #. Hypertension. Blood pressure in the satisfactory range. On Coreg. hydralazine discontinued. #. Hypothyroidism. On Synthroid. #. History of CVA. On aspirin. #. Deep vein thrombosis (DVT) prophylaxis. On heparin. VS,Fishbone, I+O VS, Fishbone, I+O Laboratory Tests 09/09/18 05:48 Red Blood Count 3.26 L, Mean Corpuscular Volume 101.8 H, Mean Corpuscular Hemoglobin 31.9, Mean Corpuscular Hemoglobin Concent 31.3 L, Red Cell Distribution Width 18.0 H, Calcium Level 8.5 L Vital Signs Date Time Temp Pulse Resp B/P (MAP) Pulse Ox O2 Delivery O2 Flow Rate FiO2 09/09/18 09:26 83 148/77 09/09/18 06:00 97.2 17 95 Room Air I&O- Last 24 Hours up to 6 AM 09/09/18 06:00 Intake Total 660 ml Output Total 400 ml Balance 260 ml KAREN MARTINEZ DO Sep 09, 2018 17:32
[2018-09-09] MEDS: LATANOPROST 0.005% OPHTH SOLN 2.5 ML OU SCH (21:00)
[2018-09-09 22:00] VITALS: BP_SYST 162; BP_SYST 168; BP_DIAS 66; BP_DIAS 80
[2018-09-10] MEDS: LEVOTHYROXINE 25MCG TABLET (0.025MG) PO SCH (05:39)
[2018-09-10] MEDS: HEPARIN SOD (PORCINE) 5000 UNITS/ML VIAL SC SCH ×3 (05:39→21:00)
[2018-09-10 06:00] VITALS: BP 160/68
[2018-09-10 06:44] LABS: HEMATOCRIT 31.5 % (42.0-52.0); MEAN CORPUSCULAR HEMOGLOBIN 31.5 pg (27.0-33.0); MEAN CORPUSCULAR HGB CONC 31.7 g/dl (32.0-36.5); MEAN CORPUSCULAR VOLUME 99.4 fl (80.0-96.0); PLATELET COUNT, AUTOMATED 152 10^3/uL (150-450); RED BLOOD COUNT 3.17 10^6/uL (4.30-6.10); WHITE BLOOD COUNT 7.4 10^3/uL (4.0-10.0)
[2018-09-10 07:05] LABS: CALCIUM LEVEL 8.3 MG/DL (8.8-10.2); CREATININE FOR GFR 5.85 MG/DL (0.70-1.30); GLOMERULAR FILTRATION RATE 9.8 (>35); MAGNESIUM LEVEL 1.9 MG/DL (1.8-2.4); POTASSIUM SERUM 4.2 MEQ/L (3.5-5.1)
[2018-09-10] MEDS: (RENVELA) SEVELAMER **CARBONate** 800 MG TAB PO SCH ×3 (08:00→18:00)
[2018-09-10] MEDS: MEGESTROL SUSP 400 MG/10 ML UDC PO SCH (08:14)
[2018-09-10] MEDS: ASPIRIN 81 MG ENTERIC TAB PO SCH (08:15)
[2018-09-10] MEDS: BRIMONIDINE 0.1% OPHTH SOLN 5 ML OU SCH ×2 (08:15→20:47)
[2018-09-10] MEDS: CARVedilol 12.5 MG TAB PO SCH ×2 (08:15→20:47)
[2018-09-10] MEDS: FOLIC ACID 1 MG TAB PO SCH (08:15)
--- NOTE | 2018-09-10 13:14 | IPNPDOC ---
Text Note Date of Service The patient was seen on 09/10/18. NOTE SUBJECTIVE: The patient is seen and examined today. Patient denies acute complaint. Denies fever or chill. OBJECTIVE: VITAL SIGNS: Listed below. GENERAL: The patient is alert and awake, no sign of distress. HEENT: Red conjunctiva. Normocephalic, atraumatic. CARDIOVASCULAR: Positive S1, S2. Regular rate. LUNGS: Clear to auscultation bilaterally. ABDOMEN: Soft, nontender. EXTREMITIES: No edema. LABORATORY DATA: Listed below. ASSESSMENT AND PLAN: #. Metabolic encephalopathy - secondary to urinary tract infection (UTI). S/P UTI treatment. There is also component of worsening baseline dementia. - CT of the heads were negative. Normal T4. Urine toxicology negative. Glucose level has been normal. Normal ammonia level. Patient has baseline dementia. - Medication reviewed. Hydralazine discontinued. #. Urinary tract infection (UTI) secondary to chronic indwelling Posadas catheter. - Urine culture from 08/28/2018 is positive for Proteus. S/P Rocephin treatment. - Repeated UA demonstrates improvement. #. End stage renal disease on hemodialysis. Nephrology consultation, appreciate their assistance. Last dialysis on 09/08/18 #. Hypertension. Blood pressure in the satisfactory range. On Coreg. hydralazine discontinued. #. Hypothyroidism. On Synthroid. #. History of CVA. On aspirin. #. Deep vein thrombosis (DVT) prophylaxis. On heparin. VS,Fishbone, I+O VS, Fishbone, I+O Laboratory Tests 09/10/18 06:10 Red Blood Count 3.17 L, Mean Corpuscular Volume 99.4 H, Mean Corpuscular Hemoglobin 31.5, Mean Corpuscular Hemoglobin Concent 31.7 L, Red Cell Distribution Width 17.9 H, Calcium Level 8.3 L Vital Signs Date Time Temp Pulse Resp B/P (MAP) Pulse Ox O2 Delivery O2 Flow Rate FiO2 09/10/18 08:15 78 160/68 09/10/18 06:00 97.1 15 95 Room Air I&O- Last 24 Hours up to 6 AM 09/10/18 06:00 Intake Total 510 ml Output Total 75 ml Balance 435 ml KAREN MARTINEZ DO Sep 10, 2018 13:14
[2018-09-10 14:00] VITALS: BP 158/66
[2018-09-10] MEDS: LATANOPROST 0.005% OPHTH SOLN 2.5 ML OU SCH (20:48)
[2018-09-10] MEDS: ACETAMINOPHEN 500 MG TAB PO PRN (20:53)
[2018-09-10 22:00] VITALS: BP 155/65
[2018-09-11 06:00] VITALS: BP 164/66
[2018-09-11] MEDS: HEPARIN SOD (PORCINE) 5000 UNITS/ML VIAL SC SCH ×3 (06:03→21:06)
[2018-09-11] MEDS: CARVedilol 12.5 MG TAB PO SCH ×2 (06:04→20:15)
[2018-09-11] MEDS: LEVOTHYROXINE 25MCG TABLET (0.025MG) PO SCH (06:04)
[2018-09-11] MEDS: (RENVELA) SEVELAMER **CARBONate** 800 MG TAB PO SCH ×3 (06:04→13:09)
[2018-09-11] MEDS: MEGESTROL SUSP 400 MG/10 ML UDC PO SCH (06:05)
[2018-09-11] MEDS: FOLIC ACID 1 MG TAB PO SCH (06:05)
[2018-09-11] MEDS: ASPIRIN 81 MG ENTERIC TAB PO SCH (06:05)
[2018-09-11] MEDS: BRIMONIDINE 0.1% OPHTH SOLN 5 ML OU SCH ×2 (06:05→20:16)
[2018-09-11 06:11] LABS: HEMATOCRIT 33.4 % (42.0-52.0); HEMOGLOBIN 10.6 g/dl (13.5-17.5); MEAN CORPUSCULAR HEMOGLOBIN 31.7 pg (27.0-33.0); MEAN CORPUSCULAR HGB CONC 31.7 g/dl (32.0-36.5); PLATELET COUNT, AUTOMATED 187 10^3/uL (150-450); RED BLOOD COUNT 3.34 10^6/uL (4.30-6.10); WHITE BLOOD COUNT 7.8 10^3/uL (4.0-10.0)
[2018-09-11 06:38] LABS: CALCIUM LEVEL 8.7 MG/DL (8.8-10.2); CREATININE FOR GFR 7.26 MG/DL (0.70-1.30); GLOMERULAR FILTRATION RATE 7.7 (>35); MAGNESIUM LEVEL 2.1 MG/DL (1.8-2.4); POTASSIUM SERUM 4.7 MEQ/L (3.5-5.1)
[2018-09-11] MEDS ORDERED: HEPARIN 1,000 UNITS/ML 10ML VIAL (FOR RADIOLOGY& DIALYSIS ONLY) IV ONE (12:30)
--- NOTE | 2018-09-11 15:06 | IPNPDOC ---
Text Note Date of Service The patient was seen on 09/11/18. NOTE SUBJECTIVE: Patient was examined at bedside, he was pleasant, in no acute complaints. He was orientated to person, place, situation, and current president, however, he was not orientated to the year. Patient is scheduled for dialysis today, with a goal of removing 1 L of fluids. OBJECTIVE: VITAL SIGNS: See below PE GENERAL: Alert, orientated to person, place, situation, president but not to year. No apparent distress, resting in bed, thin appearing elderly gentleman HEAD AND NECK EXAM: No JVD, no head trauma, pupils are round and reactive. Hard of hearing. CARDIOVASCULAR: S1, S2, regular rate. No edema of the bilateral lower extremities, no bruising, no deformities LUNGS: Clear to auscultate bilaterally anterior and posterior, no wheezing, no rhonchi ABDOMINAL: Bowel sounds present, tenderness, no organomegaly Genitourinary: chronic indwelling escobedo Skin: normal temp and turgor LABORATORY REVIEW: See below ASSESSMENT AND PLAN: 1. End-stage renal disease on hemodialysis. Regular hemodialysis scheduled Tuesday, Tuesday and Tuesday. He will undergo dialysis today, with a one-on-one sitter due to his mentation. Although his mentation has been improving as of late. The goal of dialysis today will be due removal of 1 L of fluids. Electrolytes and volume status is acceptable. 2. Hypertension in end-stage renal disease, blood pressure remains normal range. Continues to be on Coreg. 3. Metabolic encephalopathy. Significantly improved today. Answered simple questions appropriately, followed commands. Oriented to person, place, situation. We will still request 1:1 sitter during HD for concern that he may pull out the needles. 4. Anemia in end-stage renal disease. Aranesp 100 mg with dialysis. Hemoglobin is stable at 10.6, hematocrit stable at 33.4. VS,Fishbone, I+O VS, Fishbone, I+O Laboratory Tests 09/11/18 05:32 Red Blood Count 3.34 L, Mean Corpuscular Volume 100.0 H, Mean Corpuscular Hemo globin 31.7, Mean Corpuscular Hemoglobin Concent 31.7 L, Red Cell Distribution Width 17.8 H, Calcium Level 8.7 L Vital Signs Date Time Temp Pulse Resp B/P (MAP) Pulse Ox O2 Delivery O2 Flow Rate FiO2 09/11/18 06:04 73 164/66 09/11/18 06:00 97.5 20 95 Room Air I&O- Last 24 Hours up to 6 AM 09/11/18 06:00 Intake Total 1070 ml Output Total 150 ml Balance 920 ml GME ATTESTATION GME ATTESTATION My faculty preceptor for this patient encounter was physically present during the encounter and was fully available. All aspects of the patient interview, examination, medical decision making process, and medical care plan development were reviewed and approved by the faculty preceptor. The faculty preceptor is aware and concurs with the plan as stated in the body of this note and will attest to such by his/her cosignature. LISA NICOLAS DO Sep 11, 2018 15:06 MIRA TIERNEY DO Sep 11, 2018 20:22
--- NOTE | 2018-09-11 15:49 | IPNPDOC ---
Text Note Date of Service The patient was seen on 09/11/18. NOTE SUBJECTIVE: The patient is seen and examined today. Patient denies acute complaint. Denies fever or chill. OBJECTIVE: VITAL SIGNS: Listed below. GENERAL: The patient is alert and awake, no sign of distress. HEENT: Red conjunctiva. Normocephalic, atraumatic. CARDIOVASCULAR: Positive S1, S2. Regular rate. LUNGS: Clear to auscultation bilaterally. ABDOMEN: Soft, nontender. EXTREMITIES: No edema. LABORATORY DATA: Listed below. ASSESSMENT AND PLAN: #. Metabolic encephalopathy - Secondary to urinary tract infection (UTI). S/P UTI treatment. There is also component of worsening baseline dementia. - CT of the heads were negative. Normal T4. Urine toxicology negative. Glucose level has been normal. Normal ammonia level. Patient has baseline dementia. - Medication reviewed. Hydralazine discontinued. Hydralazine has potential side effects of causing disorientation and conjunctivitis. #. Urinary tract infection (UTI) secondary to chronic indwelling Posadas ca theter. - Urine culture from 08/28/2018 is positive for Proteus. S/P Rocephin treatment. - Repeated UA demonstrates improvement. #. End stage renal disease on hemodialysis. Nephrology consultation, appreciate their assistance. Last dialysis on 09/10/18 #. Hypertension. Blood pressure in the satisfactory range. On Coreg. hydralazine discontinued. #. Hypothyroidism. On Synthroid. #. History of CVA. On aspirin. #. Deep vein thrombosis (DVT) prophylaxis. On heparin. VS,Fishbone, I+O VS, Fishbone, I+O Laboratory Tests 09/11/18 05:32 Red Blood Count 3.34 L, Mean Corpuscular Volume 100.0 H, Mean Corpuscular Hemoglobin 31.7, Mean Corpuscular Hemoglobin Concent 31.7 L, Red Cell Distribution Width 17.8 H, Calcium Level 8.7 L Vital Signs Date Time Temp Pulse Resp B/P (MAP) Pulse Ox O2 Delivery O2 Flow Rate FiO2 09/11/18 06:04 73 164/66 09/11/18 06:00 97.5 20 95 Room Air I&O- Last 24 Hours up to 6 AM 09/11/18 06:00 Intake Total 1070 ml Output Total 150 ml Balance 920 ml KAREN MARTINEZ DO Sep 11, 2018 15:49
[2018-09-11 16:04] VITALS: BP 153/66
--- NOTE | 2018-09-11 18:42 | IPN ---
DATE: 09/10/2018 SUBJECTIVE: Patient was seen and examined this morning at the bedside. He denies any complaints. Reports that he has been walking a little bit and working with physical therapy. Denies any shortness of breath and was eating lunch without assistance at the time of my visit. VITAL SIGNS: Temperature 97.3, pulse 80, respiratory rate 16, blood pressure 158/66, saturating 96% on room air. Intake yesterday was 510. Urine output yesterday was 75. Net positive 435. Weight in the bed scale today is 59.6 kg, which is unchanged from prior. GENERAL: Patient is seen sitting in bed, eating, awake, alert, oriented to person and place and in no distress. He is very [id number]. Jugular veins are not elevated. NECK: Supple. CARDIAC: S1, S2, regular rate and rhythm. LUNGS: Show clear air movement bilaterally without crackle or rale. ABDOMEN: Soft and nontender. GENITOURINARY: Shows chronic indwelling Posadas. EXTREMITIES: Negative for edema. The left upper extremity fistula has thrill and bruit. NEUROLOGIC: Patient answers simple questions appropriately and was able to follow commands and was oriented to person and place at the time of my visit. LABORATORY DATA: White count 7.4, hemoglobin 10.0, platelets 152. Sodium 136, potassium 4.2, bicarbonate 29, glucose 83, magnesium 1.9. Microbiology: Repeat urine culture September 08 without any growth. INPATIENT MEDICATIONS: Reviewed by myself and no change from prior. PROBLEMS: 1. End-stage renal disease, on hemodialysis on Tuesday, Tuesday, Tuesday maintenance schedule. Patient had a minimal fluid removal on his past couple treatments because of his poor oral intake; however, today his appetite seems to be improved, and oral intake is increased as compared to prior. We will try to remove a liter with hemodialysis tomorrow as tolerated by his hemodynamics. 2. Hypertension. Blood pressures are acceptable, and I am not making any changes. He continues on carvedilol. 3. Urinary tract infection (UTI) with chronic indwelling Posadas catheter. Repeat urine culture from September 08 shows no growth. He is status post Rocephin treatment. 4. Anemia and end-stage renal disease. His hemoglobin is at goal, and he continues on Aranesp and folic acid.
[2018-09-11] MEDS: LATANOPROST 0.005% OPHTH SOLN 2.5 ML OU SCH (20:15)
[2018-09-11 22:00] VITALS: BP 156/65
[2018-09-12] MEDS: ACETAMINOPHEN 500 MG TAB PO PRN (02:11)
[2018-09-12] MEDS: HEPARIN SOD (PORCINE) 5000 UNITS/ML VIAL SC SCH (05:26)
[2018-09-12] MEDS: LEVOTHYROXINE 25MCG TABLET (0.025MG) PO SCH (05:26)
[2018-09-12 05:55] LABS: HEMATOCRIT 34.8 % (42.0-52.0); HEMOGLOBIN 10.8 g/dl (13.5-17.5); MEAN CORPUSCULAR HEMOGLOBIN 32.2 pg (27.0-33.0); MEAN CORPUSCULAR VOLUME 103.9 fl (80.0-96.0); PLATELET COUNT, AUTOMATED 153 10^3/uL (150-450); RED BLOOD COUNT 3.35 10^6/uL (4.30-6.10); WHITE BLOOD COUNT 6.9 10^3/uL (4.0-10.0)
[2018-09-12 06:00] VITALS: BP 145/77
[2018-09-12 06:13] LABS: CALCIUM LEVEL 8.7 MG/DL (8.8-10.2); CREATININE FOR GFR 4.81 MG/DL (0.70-1.30); GLOMERULAR FILTRATION RATE 12.3 (>35); MAGNESIUM LEVEL 2.1 MG/DL (1.8-2.4); POTASSIUM SERUM 4.9 MEQ/L (3.5-5.1)
[2018-09-12 07:32] VITALS: BP 145/77
[2018-09-12] MEDS: (RENVELA) SEVELAMER **CARBONate** 800 MG TAB PO SCH ×2 (07:32→07:37)
[2018-09-12] MEDS: ASPIRIN 81 MG ENTERIC TAB PO SCH (07:32)
[2018-09-12] MEDS: CARVedilol 12.5 MG TAB PO SCH (07:32)
[2018-09-12] MEDS: FOLIC ACID 1 MG TAB PO SCH (07:32)
[2018-09-12] MEDS: BRIMONIDINE 0.1% OPHTH SOLN 5 ML OU SCH (07:35)
[2018-09-12] MEDS: MEGESTROL SUSP 400 MG/10 ML UDC PO SCH (07:35)
[2018-09-12] MEDS ORDERED: CARV12.5 PO (09:56)
--- NOTE | 2018-09-12 16:36 | DS.PDOC ---
Discharge Summary General Date of Admission Aug 28, 2018 at 19:25 Date of Discharge 09/12/18 Specialist/Consultants Involve Dr. Amaral and Dr. Bird of Nephrology Discharge Summary PROCEDURES PERFORMED DURING STAY: None. ADMITTING/DISCHARGE DIAGNOSES: Chronic Indwelling Posadas Catheter associated Urinary tract infection Metabolic Encephalopathy 2/2 UTI End-stage renal disease on hemodialysis Hypertension Hypothyroidism Glaucoma History of CVA COMPLICATIONS/CHIEF COMPLAINT: Metabolic Encephalopathy. HISTORY OF PRESENT ILLNESS: . 87-year-old male with past medical history of end-stage renal disease on hemodialysis, hypothyroidism, glaucoma, chronic obstructive pulmonary disease, left ventricular diastolic dysfunction with a left ventricular ejection fraction 60-65% presented to the ER with a chief complaint of alteration in mental status. Patient's history was limited due to his presentation. Apparently, the patient was noted to be more confused and altered than his baseline. Of note, the patient does have a chronic Posadas catheter, and has frequent urinary tract i nfections from the same. The patient was diagnosed with a urinary tract infection due to indwelling Posadas catheter. He was admitted to the hospitalist service for further evaluation and management. Nephrology was consulted for further management of his dialysis. During hospitalization, the patient was treated with IV antibiotics for his urinary tract infection. The patient's metabolic encephalopathy secondary to urinary tract infection resolved. As for the patient's end-stage renal disease requiring hemodialysis, nephrology was consulted and dialyzed the patient as scheduled. At this time, the patient is back to his baseline. [facility]. The patient is to follow-up with a primary care physician within 7 days. Lastly, he is to return to the ER for any acute emergencies. DISCHARGE MEDICATIONS: Please see below. ALLERGIES: Please see below. PHYSICAL EXAMINATION ON DISCHARGE: VITAL SIGNS: Please see below. General Exam: Positive: Alert, Cooperative, No Acute Distress ENT Exam: Positive: Mucous membr. moist/pink; Negative: Atraumatic Neck Exam: Negative: JVD Chest Exam: Positive: Diminished Heart Exam: Positive: Rate Normal, Regular Rhythm, Normal S1, Normal S2 Abdomen Exam: Positive: Soft; Negative: Tenderness Extremity Exam: Negative: Tenderness LABORATORY DATA: Please see below. IMAGING: Chest one-view HISTORY: Altered mental status Comparison: 08/11/2018 An increase in interstitial markings is present in the lungs consistent with chronic interstitial change. The cardiac silhouette is enlarged. The pulmonary vasculature is normal in appearance. Impression: 1. Chronic interstitial change. 2. Cardiomegaly. CT Head without contrast HISTORY: Confusion COMPARISON: 04/07/2018 Areas of decreased attenuation are present in the periventricular and subcortical white matter. This represents small-vessel ischemic disease. There is no intraparenchymal hemorrhage, acute infarct, mass or midline shift. The ventricular system and cortical sulci as well as subarachnoid space in the posterior fossa are dilated consistent with moderate volume loss. There is no extra cerebral collection. There is no fracture. The visualized sinuses are clear. Punctate metallic densities are present in the globes. IMPRESSION: 1. Small vessel ischemic disease. 2. Moderate volume loss. Chest one-view HISTORY: Shortness of breath Comparison: 08/28/2018 An increase in interstitial markings is present in the lungs consistent with chronic interstitial change. The cardiac silhouette is enlarged. The pulmonary vasculature is normal in appearance. Impression: 1. Chronic interstitial change. 2. Cardiomegaly. CT Head without contrast HISTORY: Altered mental status COMPARISON: 08/28/2018 Areas of decreased attenuation are present in the periventricular and subcortical white matter. This represents small-vessel ischemic disease. There is no intraparenchymal hemorrhage, acute infarct, mass or midline shift. The ventricular system and cortical sulci as well as subarachnoid space in the posterior fossa are dilated consistent with moderate volume loss. There is no extra cerebral collection. There is no fracture. The visualized sinuses are clear. Punctate metallic densities are present in the globes. IMPRESSION: 1. Small vessel ischemic disease. 2. Moderate volume loss. PROGNOSIS: Fair ACTIVITY: As tolerated. DIET: Renal diet DISCHARGE PLAN: DISPOSITION: Snf Other Retirement. DISCHARGE INSTRUCTIONS: The patient is to follow-up with a primary care physician within 7 days. Lastly, he is to return to the ER for any acute emergencies. DISCHARGE CONDITION: Stable. TIME SPENT ON DISCHARGE: Greater than 30 minutes. Vital Signs/I&Os Vital Signs Date Time Temp Pulse Resp B/P (MAP) Pulse Ox O2 Delivery O2 Flow Rate FiO2 09/12/18 07:32 60 145/77 09/12/18 06:00 97.0 16 97 Room Air I&O- Last 24 Hours up to 6 AM 09/12/18 06:00 Intake Total 240 ml Output Total 1025 ml Balance -785 ml Laboratory Data Labs 24H Laboratory Tests 2 09/12/18 05:25: Nucleated Red Blood Cells % (auto) 0.3H, Anion Gap 7L, Glomerular Filtration Rate 12.3L, Blood Urea Nitrogen 18, Creatinine 4.81H, Sodium Level 138, [place] m Level 4.9, Chloride Level 106, Carbon Dioxide Level 25, Calcium Level 8.7L, Magnesium Level 2.1 CBC/BMP Laboratory Tests 09/12/18 05:25 Red Blood Count 3.35 L, Mean Corpuscular Volume 103.9 H, Mean Corpuscular Hemoglobin 32.2, Mean Corpuscular Hemoglobin Concent 31.0 L, Red Cell Distribution Width 18.4 H, Calcium Level 8.7 L Microbiology Microbiology 09/08/18 Urine Culture - Final, Complete Discharge Medications Scheduled (Icaps) 1 Cap Cap, 1 CAP PO DAILY, (Reported) (Mandie-Musa) 1 Tab Tab, 1 TAB PO QPM, (Reported) Aspirin (Aspirin EC) 81 Mg Tab, 81 MG PO DAILY, (Reported) Brimonidine Tartrate (Brimonidine Tartrate) 0.2 % Bel, 1 DROP OU BID, (Reported) Carvedilol (Carvedilol) 12.5 Mg Tab, 25 MG PO BID TAKES IF BP (S) IS OVER 140 Cholecalciferol (Vitamin D3) 50,000 Unit Cap, 50,000 UNIT PO Q2WK, (Reported) TAKES ON THE AND 14TH OF THE MONTH Folic Acid (Folic Acid) 1 Mg Tab, 1 MG PO DAILY, (Reported) Levothyroxine Sodium (Synthroid) 25 Mcg Tab, 25 MCG PO DAILY, (Reported) Megestrol Acetate (Megestrol Acetate) 40 Mg/Ml Ashley, 5 ML PO DAILY, (Reported) Sevelamer Carbonate (Renvela) 800 Mg Tab, 1,600 MG PO WM, (Reported) Travoprost (Travatan Z) 50 Drop/2.5 Ml Soln, 1 DROP OU QHS, (Reported) Scheduled PRN Acetaminophen (Tylenol Extra Strength) 500 Mg Tab, 1,000 MG PO Q6H PRN for PAIN, (Reported) Albuterol/Ipratropium (Ipratropium [place]/Albut 0.5-2.5 (3) mg/3Ml) 1 Bel Bel, 1 INH INH Q6H PRN for SHORTNESS OF BREATH, (Reported) Loperamide Hcl (Imodium A-D) 2 Mg Tab, 2 MG PO PRN PRN for DIARRHEA, (Reported) Allergies Coded Allergies: Ciprofloxacin (Verified Adverse Reaction, Mild, metabolic encephalopathy, 08/28/18) Sulfamethoxazole w/Trimethoprim (Unverified Adverse Reaction, Mild, METABOLIC ENCEPHALOPATHY, 08/28/18) GERMANIA CHACON MD Sep 12, 2018 16:36
--- NOTE | 2018-09-12 17:15 | IPNPDOC ---
Text Note Date of Service The patient was seen on 09/12/18. VS,Fishbone, I+O VS, Fishbone, I+O Laboratory Tests 09/12/18 05:25 Red Blood Count 3.35 L, Mean Corpuscular Volume 103.9 H, Mean Corpuscular Hemoglobin 32.2, Mean Corpuscular Hemoglobin Concent 31.0 L, Red Cell Distribution Width 18.4 H, Calcium Level 8.7 L Vital Signs Date Time Temp Pulse Resp B/P (MAP) Pulse Ox O2 Delivery O2 Flow Rate FiO2 09/12/18 07:32 60 145/77 09/12/18 06:00 97.0 16 97 Room Air I&O- Last 24 Hours up to 6 AM 09/12/18 06:00 Intake Total 240 ml Output Total 1025 ml Balance -785 ml GME ATTESTATION GME ATTESTATION My faculty preceptor for this patient encounter was physically present during the encounter and was fully available. All aspects of the patient interview, examination, medical decision making process, and medical care plan development were reviewed and approved by the faculty preceptor. The faculty preceptor is aware and concurs with the plan as stated in the body of this note and will attest to such by his/her cosignature. ATTENDING NOTE SUBJECTIVE: Patient was examined at bedside, he was resting comfortably in bed, he was responsive, he was conversant, he was pleasant, he had no acute complaint. He had no events overnight. He continues to be oriented to person, place and current president, as well as situation. He continues to be afebrile. Patient underwent dialysis yesterday, with 1 L fluid removal. OBJECTIVE: VITAL SIGNS: See below PE GENERAL: Alert, orientated to person, place, situation, thin appearing elderly gentleman, no acute distress HEAD AND NECK EXAM: No JVD, no head trauma, pupils are round and reactive. Hard of hearing. CARDIOVASCULAR: S1, S2, regular rate. No edema of the bilateral lower extremities, no bruising, LUNGS: Clear to auscultate bilaterally anterior and posterior, no wheezing, no rhonchi, symmetric air movement ABDOMINAL: Bowel sounds present, tenderness, no organomegaly Genitourinary: chronic indwelling escobedo Skin: normal temp and turgor, no fever, bruising on his left lower extremity, as well as upper arms, upper should be fistula with palpable thrill without bruits LABORATORY REVIEW: See below ASSESSMENT AND PLAN: 1. End-stage renal disease on hemodialysis. Regular hemodialysis scheduled Tuesday, Tuesday and Tuesday. He underwent dialysis yesterday, with a one-to-one sitter due to his mentation, a total of 1 L of fluid was removed. Electrolytes and laboratory values are within acceptable range today. Volume status is acceptable. 2. Hypertension in end-stage renal disease, blood pressure stable and accept able. Continues to be on Coreg. 3. Metabolic encephalopathy. Show significant improvement since admission. He is able to follow commands, answer questions. He is orientated. He will be discharged home today to a [facility]. 4. Anemia in end-stage renal disease. Aranesp 100 mg with dialysis. Hemoglobin is stable at 10.6, hematocrit stable at 33.4. 5. Cardiac status, echocardiogram dated 12/24/2016 showed: Normal left ventricular systolic function, with left ventricular ejection fraction of 60- 65%. Volume status is primarily controlled by hemodialysis. Patient is currently euvolemic. He will continue his regular dialysis on Tuesday, Tuesday and Tuesday discharged LISA NICOLAS DO Sep 12, 2018 17:15
[2018-09-13] MEDS ORDERED: MIDO5TA PO (14:51)
[2018-09-13] MEDS ORDERED: IPRA0.00 INH (14:51)
[2018-09-13] MEDS ORDERED: VELT1POW PO (14:51)
--- NOTE | 2018-09-14 16:01 | IPN ---
DATE: 09/03/2018 SUBJECTIVE: Patient was seen and examined in the morning at bedside. Patient is still slightly sleepy and drowsy but clinically a little better today as compared with yesterday. He is afebrile and hemodynamically stable. OBJECTIVE: Vital Signs: Temperature is 98.9 degrees Fahrenheit, blood pressure 150/68, pulse is 74, respiratory rate of 18, saturating 98% on room air. Intake and output: There is no urine output recorded. Weight in the bed scale is 60 kg. PHYSICAL EXAMINATION: GENERAL: Patient is sleepy and drowsy. He is oriented times one, lying in bed. No apparent distress. HEAD AND NECK: Pupils are equally round and reactive to light. Mucous membranes are moist. Neck is supple. There is no jugular venous distention (JVD). CARDIOVASCULAR: S1, S2, regular rate. No edema of the bilateral lower extremities. RESPIRATORY: Mildly decreased breath sounds at the bases. Otherwise no active rales or rhonchi. ABDOMEN: Soft. Positive bowel sounds. Nontender. GENITOURINARY: Patient has an indwelling Posadas catheter. CENTRAL NERVOUS SYSTEM: He is drowsy and sleepy. Follows few commands. Answers few questions. LABORATORY REVIEW: CBC showed WBC of 8.8, hemoglobin 11.9, platelets of 185. BMP showed sodium 139, potassium 5.3, chloride 100, bicarbonate 29, BUN 29, creatinine 7.4, phosphorus is 4.7. CURRENT INPATIENT MEDICATIONS: Patient's medications were all reviewed by me. No other change in the medications today as compared with yesterday. ASSESSMENT AND PLAN: 1. End-stage renal disease, on hemodialysis. Patient's regular dialysis days are Tuesday, Tuesday, Tuesday. He will be dialyzed tomorrow morning as per his regular schedule. 2. Hyperkalemia. Patient will be dialyzed with a 2K bath tomorrow morning, and potassium level is expected to improve. 3. Hypertension with end-stage renal disease. Blood pressure is optimized. Continue current dose of carvedilol. 4. Metabolic encephalopathy. It is most likely related to urinary tract infection. Continue the antibiotics at this time. 5. Urinary tract infection. Patient was growing Proteus in the urine culture, which is sensitive to current antibiotics. Continue antibiotic. Patient has a chronic indwelling Posadas catheter.
== END 2018-09-12 11:15 | DRG 698 ==
LOC: EDBD 14:12 → M ED 14:12 → M ED INP 19:25 → M MSPAV 21:10
PROVIDERS: ADMIT Internal Medicine; ATTEND Internal Medicine
PROC: 5A1D70Z Performance of Urinary Filtration, Intermittent, Less than 6 Hours Per Day (ICD-10-PCS; principal; 2018-08-29)
DX: T83.518A Infection and inflammatory reaction due to other urinary catheter, initial encounter (principal); N18.6 End stage renal disease; G93.41 Metabolic encephalopathy; E87.2 Acidosis; I13.2 Hypertensive heart and chronic kidney disease with heart failure and with stage 5 chronic kidney disease, or end stage renal disease; I50.32 Chronic diastolic (congestive) heart failure; N39.0 Urinary tract infection, site not specified; Z99.2 Dependence on renal dialysis; E03.9 Hypothyroidism, unspecified; H40.9 Unspecified glaucoma; J44.9 Chronic obstructive pulmonary disease, unspecified; F03.90 Unspecified dementia, unspecified severity, without behavioral disturbance, psychotic disturbance, mood disturbance, and anxiety; Z66 Do not resuscitate; H91.93 Unspecified hearing loss, bilateral; I16.0 Hypertensive urgency; D63.1 Anemia in chronic kidney disease; B96.4 Proteus (mirabilis) (morganii) as the cause of diseases classified elsewhere; R33.9 Retention of urine, unspecified; K52.9 Noninfective gastroenteritis and colitis, unspecified; Z79.82 Long term (current) use of aspirin; Z79.899 Other long term (current) drug therapy; Z88.1 Allergy status to other antibiotic agents; Z88.2 Allergy status to sulfonamides; Z86.73 Personal history of transient ischemic attack (TIA), and cerebral infarction without residual deficits; Z98.41 Cataract extraction status, right eye; Z98.42 Cataract extraction status, left eye; Z96.642 Presence of left artificial hip joint; Z87.891 Personal history of nicotine dependence; Y84.6 Urinary catheterization as the cause of abnormal reaction of the patient, or of later complication, without mention of misadventure at the time of the procedure

== ENCOUNTER 2018-09-13 14:18 | Inpatient (IN) | payer MEDICARE, MEDICAID ==
[~2018-09-13] VITALS: Ht 167.6 cm; Wt 64.9 kg
[~2018-09-13 14:18] MED LIST changes: +BRIM0.2S13 OU
[2018-09-13] MEDS ORDERED: VELT1POW PO (14:51)
[2018-09-13] MEDS ORDERED: MIDO5TA PO (14:51)
[2018-09-13] MEDS ORDERED: IPRA0.00 INH (14:51)
--- NOTE | 2018-09-13 16:06 | REP ---
CT Head without contrast HISTORY: Fall COMPARISON: 09/07/2018 Areas of decreased attenuation are present in the periventricular and subcortical white matter. This represents small-vessel ischemic disease. There is no intraparenchymal hemorrhage, acute infarct, mass or midline shift. The ventricular system and cortical sulci as well as subarachnoid space in the posterior fossa are dilated consistent with moderate volume loss. . There is no extra cerebral collection. There is no fracture. The visualized sinuses are clear. Punctate metallic densities are present in the globes. IMPRESSION: 1. Small vessel ischemic disease. 2. Moderate volume loss. 3. There are punctate metallic densities in the globes. Electronically Signed by Timur Jurado MD 09/13/2018 03:58 P
--- NOTE | 2018-09-13 16:11 | REP ---
CT cervical spine without contrast HISTORY: Fall COMPARISON: None The examination is incomplete as the anterior aspects of the C2 through five vertebral bodies are not seen. There is no acute fracture . A disc bulge is present at the C2-3 level. Disc bulges with associated osteophyte formation are present at the C3-4 through C6-7 levels. There is minimal narrowing of the spinal canal. Uncinate process and/or facet hypertrophy are present at the C2-3 through C6-7 levels. These findings produce minimal to moderate narrowing of the neural foramina. The C2-3 through C6-7 intervertebral discs are decreased in height consistent with disc degeneration. There are 2 mm of retrolisthesis of C3-4. IMPRESSION: 1. There is no acute fracture. 2. There is cervical spondylosis at the C2-3 through C6-7 levels. Electronically Signed by Timur Jurado MD 09/13/2018 04:03 P
[2018-09-13 16:36] LABS: BASO % 0.2 % (0.0-1.0); EOS % 0.1 % (0.0-3.0); HEMATOCRIT 29.6 % (42.0-52.0); HEMOGLOBIN 9.1 g/dl (13.5-17.5); LYMPH # 0.7 10^3/uL (1.5-4.5); LYMPH % 4.7 % (24.0-44.0); MEAN CORPUSCULAR HEMOGLOBIN 32.4 pg (27.0-33.0); MEAN CORPUSCULAR HGB CONC 30.7 g/dl (32.0-36.5); MEAN CORPUSCULAR VOLUME 105.3 fl (80.0-96.0); MONO % 15.7 % (0.0-5.0); NEUTROPHILS # 11.7 10^3/uL (1.8-7.7); NEUTROPHILS % 75.6 % (36.0-66.0); PLATELET COUNT, AUTOMATED 139 10^3/uL (150-450); RED BLOOD COUNT 2.81 10^6/uL (4.30-6.10); WHITE BLOOD COUNT 15.5 10^3/uL (4.0-10.0)
[2018-09-13 16:37] LABS: MONO # 2.4 10^3/uL (0.0-0.8)
--- NOTE | 2018-09-13 17:05 | REP ---
Chest one-view HISTORY: Altered mental status Comparison: 09/07/2018 The lungs are clear. The heart is normal in size. The pulmonary vasculature is normal in appearance. Impression: No acute disease. Electronically Signed by Timur Jurado MD 09/13/2018 04:55 P
[2018-09-13 17:06] LABS: ALBUMIN 2.8 GM/DL (3.2-5.2); ALT/SGPT 24 U/L (12-78); BILIRUBIN,DIRECT 0.2 MG/DL (0.0-0.2); BILIRUBIN,TOTAL 0.5 MG/DL (0.2-1.0); BLOOD UREA NITROGEN 16 MG/DL (7-18); CALCIUM LEVEL 8.1 MG/DL (8.8-10.2); CARBON DIOXIDE LEVEL 26 MEQ/L (21-32); CHLORIDE LEVEL 103 MEQ/L (98-107); CPK CREATINE PHOSPHOKINASE 122 U/L (39-308); CREATININE FOR GFR 3.85 MG/DL (0.70-1.30); GLUCOSE, FASTING 111 MG/DL (70-100); MB/CK RELATIVE INDEX 3.11 (< OR =4); POTASSIUM SERUM 4.3 MEQ/L (3.5-5.1); SODIUM LEVEL 140 MEQ/L (136-145); TOTAL PROTEIN 5.6 GM/DL (6.4-8.2); TROPONIN I < 0.02 NG/ML (< 0.10)
--- NOTE | 2018-09-13 17:41 | REP ---
Right tib-fib series: Four views. History: Injury in a fall. Findings: Multiple views of the right tibia and fibula demonstrate transversely oriented comminuted somewhat impacted fractures of the proximal tibial and proximal fibular zhen metaphyseal region. There is profound diffuse osteopenia. Clothing artifact is seen at the knee obscuring fine bone detail. Impression: Proximal tib-fib fractures with impaction. Marked diffuse osteopenia. Clothing artifact obscures fine bone detail in the region of the tibial plateau. Electronically Signed by Osmani Scales MD 09/14/2018 08:32 A
--- NOTE | 2018-09-13 17:42 | REP ---
Right ankle: Two views. History: Injury in a fall. Findings: AP and lateral views of the right ankle demonstrate marked diffuse osteopenia. No fracture is seen. Ankle mortise is intact. Impression: No fracture noted. Electronically Signed by Osmani Scales MD 09/14/2018 08:32 A
--- NOTE | 2018-09-13 17:52 | REP ---
BILATERAL HIPS, AP PELVIS: HISTORY: Altered mental status. RIGHT HIP: There is no acute fracture or dislocation. There is minimal narrowing of the joint space. The bony structure is osteopenic. IMPRESSION: There is no acute fracture or dislocation. LEFT HIP: The patient is status post left total hip replacement. There is no acute fracture or dislocation. There is mild narrowing of the joint space. IMPRESSION: There is no acute fracture or dislocation. Electronically Signed by Timur Jurado MD 09/13/2018 05:55 P
--- NOTE | 2018-09-13 17:52 | REP ---
Right knee series: Two views: History: Injury in a fall. Findings: AP and lateral views of the right knee demonstrate the proximal tib-fib fractures which are impacted and comminuted as described on the tib-fib radiographs. Prominent clothing artifact obscures fine bone detail in the region of the tibial plateau and distal femur. No additional fracture is appreciated. Impression: Limited radiographs. Proximal tib-fib fractures as seen on the tib-fib views. Osteoporosis. Clothing artifact. Electronically Signed by Osmani Scales MD 09/14/2018 08:32 A
--- NOTE | 2018-09-13 17:57 | ECGEPIP ---
Stationary ECG Study [facility] - ED Test Date: 2018-09-13 Pat Name: MELI COFFMAN Department: Room: - Gender: M Delivery Mgr: [facility] : 1930 Requested By: TONI Tapia Order Number: [id number] Reading MD: Joan Valenzuela Measurements Intervals [place] Rate: 84 P: 75 NH: 202 QRS: 1 QRSD: 92 T: 107 QT: 379 QTc: 449 Interpretive Statements SINUS RHYTHM WITH OCCASIONAL VENTRICULAR PREMATURE COMPLEXES NONSPECIFIC T-WAVE ABNORMALITY DECREASED RATE/INCREASED ECTOPY 08/28/18 Electronically Signed On 09-13-2018 17:57:26 EST by Joan Valenzuela
--- NOTE | 2018-09-13 18:08 | REP ---
AP LATERAL RIGHT KNEE, TWO VIEWS: HISTORY: Fracture.COMPARISON: 09/13/2018 There are nondisplaced impacted fractures of the proximal tibia and fibula. There is no dislocation. There is mild narrowing of the knee joint space. The bony structure is osteopenic. IMPRESSION:Nondisplaced impacted fractures of the proximal tibia and fibula. Electronically Signed by Timur Jurado MD 09/13/2018 06:26 P
--- NOTE | 2018-09-13 19:07 | REPVR ---
EXAM: CT Right Lower Extremity Without IV Contrast, Knee EXAM DATE/TIME: 09/13/2018 6:30 PM CLINICAL HISTORY: 87 years old, male; Injury or trauma; Injury history: FX; Initial encounter; Fracture, traumatic; Closed fracture; Fibula and tibia; Right TECHNIQUE: CT of the Right lower extremity without intravenous contrast was performed. Exam focused on the knee. All CT scans at this facility use at least one of these dose optimization techniques: automated exposure control; mA and/or kV adjustment per patient size (includes targeted exams where dose is matched to clinical indication); or iterative reconstruction. Coronal and sagittal reformatted images were created and reviewed. COMPARISON: CR Knee, Ap, Lat 09/13/2018 5:30 PM FINDINGS: Bones are diffusely severely demineralized. Correlating with radiographs, there is a comminuted non-articular fracture of the proximal tibial diametaphysis, extending from roughly 4 cm distal to the knee joint articular surface to 10 cm distal. Comminuted cortical fragments are present extending to the mid diaphysis level. Minimal varus angulation of the tibia and mild, perhaps 1 cm posterior displacement of the dominant distal shaft fragment relative to the dominant proximal fragment. No obvious underlying osseous lesion. Interfragmentary hemorrhage is present. Associated nonarticular comminuted fibular fracture is present centered 8-9 cm caudal to the proximal end of the bone with apex anterior and varus angulation. Diffuse subcutaneous soft tissue swelling and hematoma is present. No soft tissue air to indicate an open injury. Distal femur and patella appear intact and no significant knee joint effusion is present IMPRESSION: Comminuted nonarticular proximal diametaphyseal fractures of the tibia and fibula as described in a patient with profound skeletal demineralization Electronically signed by: Ramiro Munroe On 09/13/2018 19:07:39 PM
[2018-09-13] MEDS ORDERED: NS 250 ML IV SCH (20:19)
[2018-09-13] MEDS ORDERED: NS 250 ML IV ONE (20:30)
[2018-09-13] MEDS: CARVedilol 12.5 MG TAB PO SCH (21:28)
--- NOTE | 2018-09-13 21:36 | HPEPDOC ---
[facility] Medical History & Physical Date of Admission Sep 13, 2018 Other Provider Dictating and admitting: Dr. Joya Attending Physician: JENY BATISTA MD History and Physical CHIEF COMPLAINT: Altered mental status HISTORY OF PRESENT ILLNESS: Patient is an 87-year-old man with history of ESRD on hemodialysis Mondays, Wednesdays and Fridays, hypothyroidism, glaucoma, COPD, left ventricle diastolic dysfunction, chronic indwelling urinary Posadas catheter, anemia of chronic disease. Patient was brought in from dialysis unit on account of altered mental status. It was reported that he had just started dialysis when he noticed he was altered dialysis was discontinued and patient brought into the emergency room. However, off note, Patient was recently evaluated and treated for altered mental status, admitted August 2018 and discharged to a rehabilitation home. Also noted that he fell twice at the rehabilitation home yesterday. At this time I'm unable to get adequate history from patient, his daughter is not at bedside at this time. However, he is able to deny any fever or chills, nausea, vomiting, palpitations, chest pains, cough or shortness of breath. He still makes some urine. He was evaluated in the emergency room with elevated WBC imaging consistent with fracture of tibia-fibula. Hospitalist was called in for admission. PAST MEDICAL HISTORY: 1. ESRD on hemodialysis Mondays, Wednesdays and Fridays. 2. Hypothyroidism. 3. Glaucoma. 4. COPD 5. Left ventricular diastolic dysfunction with ejection fraction 60-65%. 6. Chronic indwelling urinary Posadas catheter. 7. Anemia of chronic disease. PAST SURGICAL HISTORY: 1. Left femoral head hemiarthroplasty. 2. EGD, colonoscopy. 3. Bilateral cataract surgery. 4. Right hemodialysis catheter placement. 5. Removal of testis. SOCIAL HISTORY: Denies smoking, denies alcohol, denies illicit drug use. Lives in [facility] with daughter said to be independent. However, after last admission on the patient was transferred to rehabilitation. FAMILY HISTORY: Taken from EMR. Patient's father is at an unknown age from an unknown etiology. Mother also age 90s from Alzheimer, but younger brother is alive and well. ALLERGIES: Please see below. REVIEW OF SYSTEMS: 12 point review of system inconclusive. HOME MEDICATIONS: Please see below. PHYSICAL EXAMINATION: VITAL SIGNS: Temperature 98, pulse 93, respiratory rate 18, blood pressure 156/67, pulse oximetry 93% on room air. GENERAL APPEARANCE: Elderly man, lying calmly in bed, not in any apparent distress. He is not pale, anicteric and afebrile HEENT: Atraumatic. Neck: Supple. LUNGS: Clear to auscultation bilaterally. CARDIOVASCULAR: S1 and 2 heard, no murmurs, rubs or gallops. ABDOMEN: soft, not tender, not distended. Bowel sounds normoactive. MUSCULOSKELETAL: Apparently within normal limits. EXTREMITIES: No pedal edema, 2+ bilateral pedal pulses noted. RLE cast noted. NEUROLOGICAL: Awake, alert, responds sometimes to commands.. PSYCHIATRIC: Normal affect LABORATORY DATA: See below. IMAGING: Right tubular/fibular series:Proximal tib-fib fractures with impaction. Marked diffuse osteopenia. Clothing artifact obscures fine bone detail in the region of the tibial plateau. Left hip x-ray: No acute fracture or dislocation. CT head without contrast: 1. Small vessel ischemic disease, 2 moderate volume loss, 3 punctate metallic densities in the globes. Chest x-ray: No acute disease. CT cervical spine without contrast: No acute fracture. There is cervical spondylosis at C2-C3 through C6 to C7. Right ankle x-ray: No acute fracture. CT right lower extremity: Comminuted nonarticular proximal diametaphyseal fractures of the tibia and fibula. EKG: Sinus rhythm with occasional PVCs, no acute ST or T-wave changes. X-ray right lateral right knee: Nondisplaced impacted fractures of the proximal tibia and fibula. MICROBIOLOGY: Please see below. ASSESSMENT: 87-year-old man said to have falling twice as at the rehabilitation home and also said to have altered mental status in the course of dialysis today. The patient was examining, able to answer questions, however, unsure of patient's baseline as daughter was not at bedside. He was also found a little dry, no pedal edema with clear chest on auscultation. Also noted. Right lower extremity cast. Imaging reveals fractures of tibia-fibula. Patient is pending. UA and possible urine culture. DIAGNOSES: 1. Altered mental status. 2. Fracture of right tibia and fibula. . PLAN: 1. We will admit patient to PCU under care of Dr. Gonzalez. 2. Altered mental state: Patient examined and found a little dry. We'll give normal saline to 50 mils bolus one time. Pending Urinalysis and possible urine culture, although patient able to answer questions appropriately. I will give Levaquin empirically. Please follow blood cultures and UA. Reevaluate his mental status in the morning. 3. Patient was said to have had an incomplete hemodialysis today. Renal consult placed. 4. We will resume by mouth medication as soon as reconciled. 5. DVT prophylaxis, TEDs. 6. Tibia/fibular fracture: Consult placed to Dr. Matthew. We will ensure adequate pain control. 7. GI prophylaxis not indicated at this time. 8. Further management will be per patient's clinical course. Vital Signs Vital Signs Date Time Temp Pulse Resp B/P (MAP) Pulse Ox O2 Delivery O2 Flow Rate FiO2 09/13/18 19:30 18 156/67 (96) 93 Room Air 09/13/18 19:27 93 09/13/18 14:48 97.6 Laboratory Data Labs 24H Laboratory Tests 2 09/13/18 16:25: Immature Granulocyte % (Auto) 3.7H, White Blood Count 15.5H, Red Blood Count 2.81L, Hemoglobin 9.1L, Hematocrit 29.6L, Mean Corpuscular Volume 105.3H, Mean Corpuscular Hemoglobin 32.4, Mean Corpuscular Hemoglobin Concent 30.7L, Red Cell Distribution Width 18.6H, Platelet Count 139L, Neutrophils (%) (Auto) 75.6H, Lymphocytes (%) (Auto) 4.7L, Monocytes (%) (Auto) 15.7H, Eosinophils (%) (Auto) 0.1, Basophils (%) (Auto) 0.2, Neutrophils # (Auto) 11.7H, Lymphocytes # (Auto) 0.7L, Monocytes # (Auto) 2.4H, Eosinophils # (Auto) 0.0, Basophils # (Auto) 0.0, Nucleated Red Blood Cells % (auto) 0.2H, Anion Gap 11, Glomerular Filtration Rate 16.0L, Lactic Acid Level 1.3, Calcium Level 8.1L, Aspartate Amino Transf (AST/SGOT) 21, Alanine Aminotransferase (ALT/SGPT) 24, Alkaline Phosphatase 93, Total Bilirubin 0.5, Direct Bilirubin 0.2, Total Creatine Kinase 122, Creatine Kinase MB 4.0H, Creatine Kinase MB Relative Index 3.11, Troponin I < 0.02, Total Protein 5.6L, Albumin 2.8L, Albumin/Globulin Ratio 1.00, Thyroid Stimulating Hormone (TSH) 2.460 CBC/BMP Laboratory Tests 09/13/18 16:25 Red Blood Count 2.81 L, Mean Corpuscular Volume 105.3 H, Mean Corpuscular Hemoglobin 32.4, Mean Corpuscular Hemoglobin Concent 30.7 L, Red Cell Distribution Width 18.6 H, Neutrophils (%) (Auto) 75.6 H, Lymphocytes (%) (Auto) 4.7 L, Monocytes (%) (Auto) 15.7 H, Eosinophils (%) (Auto) 0.1, Basophils (%) (Auto) 0.2, Neutrophils # (Auto) 11.7 H, Lymphocytes # (Auto) 0.7 L, Monocytes # (Auto) 2.4 H, Eosinophils # (Auto) 0.0, Basophils # (Auto) 0.0 Microbiology Microbiology 09/13/18 Blood Culture, Received Pending 09/13/18 Blood Culture, Received Pending Home Medications Scheduled (Icaps) 1 Cap Cap, 1 CAP PO DAILY (Mandie-Musa) 1 Tab Tab, 1 TAB PO QPM Aspirin (Aspirin EC) 81 Mg Tab, 81 MG PO DAILY Brimonidine Tartrate (Brimonidine Tartrate) 0.2 % Bel, 1 DROP OU BID Carvedilol (Carvedilol) 12.5 Mg Tab, 25 MG PO BID TAKES IF BP (S) IS OVER 140 Cholecalciferol (Vitamin D3) 50,000 Unit Cap, 50,000 UNIT PO Q2WK TAKES ON THE AND OF THE MONTH Folic Acid (Folic Acid) 1 Mg Tab, 1 MG PO DAILY Levothyroxine Sodium (Synthroid) 25 Mcg Tab, 25 MCG PO DAILY Megestrol Acetate (Megestrol Acetate) 40 Mg/Ml Sahley, 5 ML PO DAILY Midodrine HCl (Midodrine HCl) 5 Mg Tab, 5 MG PO 3XW Sevelamer Carbonate (Renvela) 800 Mg Tab, 1,600 MG PO WM Travoprost (Travatan Z) 50 Drop/2.5 Ml Soln, 1 DROP OU QHS Scheduled PRN Acetaminophen (Tylenol Extra Strength) 500 Mg Tab, 1,000 MG PO Q6H PRN for PAIN Albuterol/Ipratropium (Ipratropium Hamlin/Albut 0.5-2.5 (3) mg/3Ml) 1 Bel Bel, 1 DOSE INH Q6H PRN for SHORTNESS OF BREATH Loperamide Hcl (Imodium A-D) 2 Mg Tab, 2 MG PO PRN PRN for DIARRHEA Miscellaneous Medications Patiromer Sorbitex Calcium (Veltassa) 8.4 Gm Pow, 8.4 GM PO Allergies Coded Allergies: Ciprofloxacin (Verified Adverse Reaction, Mild, metabolic encephalopathy, 09/13/18) Sulfamethoxazole w/Trimethoprim (Unverified Adverse Reaction, Mild, ME TABOLIC ENCEPHALOPATHY, 09/13/18) GARY JOYA MD Sep 13, 2018 21:36
[2018-09-13 22:00] VITALS: BP 140/92
[2018-09-13 22:30] VITALS: BP 123/58
[2018-09-13] MEDS ORDERED: SLF 3 ML SYR IV PRN (22:45)
[2018-09-13] MEDS ORDERED: cefTRIAXone SOD 1 GM in D5W MINI-BAG PLUS 50 ML IV SCH (23:00)
[2018-09-14] VITALS: BP 114/52
[2018-09-14 04:00] VITALS: BP 141/65
[2018-09-14] MEDS ORDERED: IPRATROPIUM 0.5MG/ALBUTEROL 2.5MG INH SOL UD 3ML (DUONEB)(J7620) NEB PRN ×2 (04:45→07:00)
[2018-09-14] MEDS ORDERED: SLF 3 ML SYR IV SCH (06:00)
[2018-09-14] MEDS: LEVOTHYROXINE 25MCG TABLET (0.025MG) PO SCH (06:30)
[2018-09-14 07:13] LABS: BASO % 0.1 % (0.0-1.0); EOS # 0.1 10^3/uL (0.0-0.50); EOS % 0.3 % (0.0-3.0); HEMATOCRIT 27.6 % (42.0-52.0); HEMOGLOBIN 8.5 g/dl (13.5-17.5); LYMPH # 0.8 10^3/uL (1.5-4.5); LYMPH % 4.7 % (24.0-44.0); MEAN CORPUSCULAR HEMOGLOBIN 32.4 pg (27.0-33.0); MEAN CORPUSCULAR HGB CONC 30.8 g/dl (32.0-36.5); MEAN CORPUSCULAR VOLUME 105.3 fl (80.0-96.0); MONO % 24.6 % (0.0-5.0); NEUTROPHILS # 10.7 10^3/uL (1.8-7.7); NEUTROPHILS % 67.8 % (36.0-66.0); PLATELET COUNT, AUTOMATED 135 10^3/uL (150-450); RED BLOOD COUNT 2.62 10^6/uL (4.30-6.10); WHITE BLOOD COUNT 15.8 10^3/uL (4.0-10.0)
[2018-09-14 07:30] LABS: CALCIUM LEVEL 8.3 MG/DL (8.8-10.2); CREATININE FOR GFR 4.82 MG/DL (0.70-1.30); GLOMERULAR FILTRATION RATE 12.3 (>35)
[2018-09-14 07:38] LABS: MONO # 3.9 10^3/uL (0.0-0.8)
[2018-09-14 07:41] LABS: PLATELET ESTIMATE NORMAL (NORMAL)
[2018-09-14 07:42] LABS: ANISOCYTOSIS 2+; HYPOCHROMASIA 1+; MICROCYTOSIS 2+; POLYCHROMASIA 1+
[2018-09-14 07:43] LABS: OVALOCYTES 1+
[2018-09-14 07:44] LABS: POIKILOCYTOSIS 1+
--- NOTE | 2018-09-14 07:46 | IPNPDOC ---
Date Seen The patient was seen on 09/14/18. Progress Note SUBJECTIVE: Per RN overnight 09/13/18, pt took his IV out and threw it against the wall. Pt had mitts placed, and IV re-inserted. He remains uncooperative this morning with occasional cough. does not answer questions, but opens his eyes. OBJECTIVE: PHYSICAL EXAMINATION: VITAL SIGNS: PLS SEE BELOW GENERAL APPEARANCE: noncooperative not answering questions. mitts on bilateral hands. supine in position on his left side at 30 degree head elevation HEENT: Atraumatic. Neck: Supple. LUNGS:diminished. bibasilar crackles and coarse rhonchi. CARDIOVASCULAR: S1 and 2 heard, no murmurs, rubs or gallops. ABDOMEN: soft, not tender, not distended. Bowel sounds normoactive. MUSCULOSKELETAL: Apparently within normal limits. EXTREMITIES: No pedal edema, 2+ bilateral pedal pulses noted. RLE cast noted. NEUROLOGICAL: Awake, alert, responds sometimes to commands.. PSYCHIATRIC: Normal affect LABORATORY DATA: See below. IMAGING: Right tubular/fibular series:Proximal tib-fib fractures with impaction. Marked diffuse osteopenia. Clothing artifact obscures fine bone detail in the region of the tibial plateau. Left hip x-ray: No acute fracture or dislocation. CT head without contrast: 1. Small vessel ischemic disease, 2 moderate volume loss, 3 punctate metallic densities in the globes. Chest x-ray: No acute disease. CT cervical spine without contrast: No acute fracture. There is cervical spondylosis at C2-C3 through C6 to C7. Right ankle x-ray: No acute fracture. CT right lower extremity: Comminuted nonarticular proximal diametaphyseal fractures of the tibia and fibula. EKG: Sinus rhythm with occasional PVCs, no acute ST or T-wave changes. X-ray right lateral right knee: Nondisplaced impacted fractures of the proximal tibia and fibula. MICROBIOLOGY: Please see below. ASSESSMENT AND PLAN: Patient is an 87-year-old man with history of ESRD on hemodialysis Mondays, Wednesdays and Fridays, hypothyroidism, glaucoma, COPD, left ventricle diastolic dysfunction, chronic indwelling urinary Posadas catheter, anemia of chronic disease. Patient was brought in from dialysis unit on account of altered mental status. It was reported that he had just started dialysis when he noticed he was altered dialysis was discontinued and patient brought into the emergency room. However, off note, Patient was recently evaluated and treated for altered mental status, admitted August 2018 and discharged to a rehabilitation home. Also noted that he fell twice at the rehabilitation home yesterday. At this time I'm unable to get adequate history from patient, his daughter is not at bedside at this time. However, he is able to deny any fever or chills, nausea, vomiting, palpitations, chest pains, cough or shortness of breath. He still makes some urine. He was evaluated in the emergency room with eter placement. Altered mental status. Patient examined and found a little dry. We'll give normal saline to 50 mils bolus one time. awaitng final urine culture report. renally dosed Levaquin started empirically on 09/13/18 until c&s returns. negative blood cultures so far . no focal deficits, and with purposeful movements, but uncooperative today Abnormal UA secondary to chronic indwelling catheter await final urine cx results and on renally dosed levaquin. Fracture of right tibia and fibula, reduced 09/13/[address] stratton. repeat xray 09/14/18. fu as outpt next or fi for long leg cast. continue splint until seen as outpt. pain control. bowel regimen. ESRD on hemodialysis Mondays, Wednesdays and Fridays nephrology consulted. repeat cxr due to crackles 09/14/18. hypothyroidism, chronic reviewed tsh. on synthroid glaucoma, chronic COPD, compensated prn nebs left ventricle diastolic dysfunction, dialysis dependent defer to nephrology for fluid and volume management. chronic indwelling urinary Posadas catheter, at risk fo recurrent UTI on empiric renally dosed levaquin. dc if urine cx is negative anemia of chronic disease no acute indication for rbc transfusion GI prophylaxis not indicated at this time. disposition: activity per ortho. PT clearance. VS, I&O, 24H, Fishbone Vital Signs/I&O Vital Signs Date Time Temp Pulse Resp B/P (MAP) Pulse Ox O2 Delivery O2 Flow Rate FiO2 09/14/18 04:00 98.2 85 20 141/65 (90) 99 Nasal Cannula 2.0 I&O- Last 24 Hours up to 6 AM 09/14/18 06:00 Intake Total 50 ml Output Total 0 ml Balance 50 ml Laboratory Data 24H LABS Laboratory Tests 2 09/13/18 16:25: Immature Granulocyte % (Auto) 3.7H, White Blood Count 15.5H, Red Blood Count 2.81L, Hemoglobin 9.1L, Hematocrit 29.6L, Mean Corpuscular Volume 105.3H, Mean Corpuscular Hemoglobin 32.4, Mean Corpuscular Hemoglobin Concent 30.7L, Red Cell Distribution Width 18.6H, Platelet Count 139L, Neutrophils (%) (Auto) 75.6H, Lymphocytes (%) (Auto) 4.7L, Monocytes (%) (Auto) 15.7H, Eosinophils (%) (Auto) 0.1, Basophils (%) (Auto) 0.2, Neutrophils # (Auto) 11.7H, Lymphocytes # (Auto) 0.7L, Monocytes # (Auto) 2.4H, Eosinophils # (Auto) 0.0, Basophils # (Auto) 0.0, Nucleated Red Blood Cells % (auto) 0.2H, Anion Gap 11, Glomerular Filtration Rate 16.0L, Lactic Acid Level 1.3, Calcium Level 8.1L, Aspartate Amino Transf (AST/SGOT) 21, Alanine Aminotransferase (ALT/SGPT) 24, Alkaline Phosphatase 93, Total Bilirubin 0.5, Direct Bilirubin 0.2, Total Creatine Kinase 122, Creatine Kinase MB 4.0H, Creatine Kinase MB Relative Index 3.11, Troponin I < 0.02, Total Protein 5.6L, Albumin 2.8L, Albumin/Globulin Ratio 1.00, Thyroid Stimulating Hormone (TSH) 2.460 CBC/BMP Laboratory Tests 09/13/18 16:25 Red Blood Count 2.81 L, Mean Corpuscular Volume 105.3 H, Mean Corpuscular Hemoglobin 32.4, Mean Corpuscular Hemoglobin Concent 30.7 L, Red Cell Distribution Width 18.6 H, Neutrophils (%) (Auto) 75.6 H, Lymphocytes (%) (Auto) 4.7 L, Monocytes (%) (Auto) 15.7 H, Eosinophils (%) (Auto) 0.1, Basophils (%) (Auto) 0.2, Neutrophils # (Auto) 11.7 H, Lymphocytes # (Auto) 0.7 L, Monocytes # (Auto) 2.4 H, Eosinophils # (Auto) 0.0, Basophils # (Auto) 0.0 Microbiology Microbiology 09/13/18 Blood Culture, Received Pending 09/13/18 Blood Culture, Received Pending JENY BATISTA MD Sep 14, 2018 06:48
[2018-09-14 08:00] VITALS: BP 112/40
--- NOTE | 2018-09-14 08:06 | REP ---
Portable chest x-ray: Single view. History: Shortness of breath. Comparison study: September 13, 2018. Findings: EKG monitoring electrodes overlie the chest. Cardiomegaly is observed. There are is marked diffuse osteoporosis and multiple old rib fractures are noted bilaterally. There is increased density overlying the cardiac apex at the left base which may be discoid atelectasis versus small infiltrate. Lung jones are otherwise clear. There is no evidence of pleural effusion. Impression: Cardiomegaly. Increased markings left base laterally, atelectasis versus early infiltrate. Electronically Signed by Osmani Scales MD 09/14/2018 07:58 A
[2018-09-14] MEDS: IPRATROPIUM 0.5MG/ALBUTEROL 2.5MG INH SOL UD 3ML (DUONEB)(J7620) NEB SCH ×5 (08:46→23:55)
--- NOTE | 2018-09-14 09:17 | REP ---
AP AND LATERAL RIGHT KNEE, TWO VIEWS: HISTORY: Splint position. COMPARISON: 09/13/2018 A plaster cast is present obscuring detail. There are comminuted impacted fractures of the proximal tibia and fibula. There is no dislocation. The bony structure is osteopenic. IMPRESSION: Comminuted impacted fractures of the proximal tibial and fibula. Electronically Signed by Timur Jurado MD 09/14/2018 09:22 A
[2018-09-14] MEDS: ASPIRIN 81 MG ENTERIC TAB PO SCH (09:57)
[2018-09-14] MEDS: MEGESTROL SUSP 400 MG/10 ML UDC PO SCH (09:57)
[2018-09-14] MEDS: FOLIC ACID 1 MG TAB PO SCH (09:58)
[2018-09-14] MEDS: CARVedilol 12.5 MG TAB PO SCH ×2 (09:58→20:26)
[2018-09-14 10:58] LABS: HEMATOCRIT 27.1 % (42.0-52.0); HEMOGLOBIN 8.6 g/dl (13.5-17.5); MEAN CORPUSCULAR HEMOGLOBIN 32.8 pg (27.0-33.0); MEAN CORPUSCULAR HGB CONC 31.7 g/dl (32.0-36.5); MEAN CORPUSCULAR VOLUME 103.4 fl (80.0-96.0); PLATELET COUNT, AUTOMATED 151 10^3/uL (150-450); RED BLOOD COUNT 2.62 10^6/uL (4.30-6.10); WHITE BLOOD COUNT 13.2 10^3/uL (4.0-10.0)
[2018-09-14 12:00] VITALS: BP 118/58
[2018-09-14] MEDS: LevoFLOXacin 250 MG TABLET PO SCH (13:21)
--- NOTE | 2018-09-14 16:06 | CR ---
DATE OF CONSULTATION: 09/13/2018 INDICATION: Displaced right tibia and fibula fractures. HISTORY OF PRESENT ILLNESS: Nikko is an 87-year-old gentleman with multiple medical problems including end-stage renal disease on dialysis who had been transferred to a [place] rehabilitation facility the prior day after spending 2 weeks in the hospital at [facility]. He supposedly suffered two falls on his first day at [facility] and then the following day, on 09/13/2018, was noted to have pain and difficulty ambulating at dialysis so was brought to the ER where x-rays revealed a proximal tib-fib fracture. The patient does have dementia. He is hard of hearing so the history is limited although he was able to answer some basic questions. He is reporting pain in the right lower extremity pointing to the area of the fracture. He denied any new numbness in his foot. For the patient's past medical history, past surgical history, medications, allergies, social history and review of systems please see the admitting history and physical (H and P). The patient supposedly ambulates with a walker but the last month has not been ambulating very much. On exam this is an elderly gentleman in no distress. He is pleasant but [id number], can answer some questions. Cardiovascular: He has a 2+ dorsalis pedis pulse. Pulmonary: Nonlabored breathing. Skin: There is several small punctate abrasions over left greater than right lower extremities, possibly from scratching himself. There is extensive ecchymosis in the proximal tibia anteriorly with moderate swelling. There are no open wounds. No skin defects other than one area of the skin that looks slightly compromised as if there was some pressure from a fracture or from focal swelling. There is moderate swelling in the calf but his compartments are soft and compressible. There is no pain with passive stretch of the toes. He is able to fire EHL and FHL. He does state that he can feel light touch on the dorsum of the foot. There is no pain at the ankle. There is deformity at the fracture site. There is crepitus and instability at the fracture site. X-rays initially obtained of the tib-fib and ankle were of terrible quality and essentially useless. I did request repeat AP, lateral of the knee and although not great images it shows a displaced comminuted proximal metadiaphyseal tibia fracture as well as fracture of the fibula. Borderline joint involvement. I then requested a CT scan of the knee to rule out intra-articular involvement. It does not appear to extend into the joint. This is an extra-articular comminuted proximal one-fourth tibia fracture. ASSESSMENT/PLAN: Nikko Dubois is an 87-year-old gentleman with multiple medical problems who has a closed comminuted proximal one-fourth tibia fracture. I discussed operative and nonoperative treatment with the daughter for greater than 10 minutes over the phone. I attempted to explain this to the patient but given his dementia I was not making much progress. I explained to the daughter this could be fixed with plate and screws or an intramedullary nail or we could treat this nonoperatively with initial splint followed by cast immobilization. He is at very high risk for operative complications especially infection and wound breakdown. His bone appears to be of very poor quality. My recommendation is for nonoperative treatment with a splint, provisional closed reduction and being able to keep an eye on the skin for the first 7 days and then he can followup in the office in a week and be placed into a long leg fiberglass cast. The daughter fully agreed with this treatment plan. I then placed the patient into a well-padded long leg posterior fiberglass splint with additional medial and lateral fiberglass struts. The knee was placed into about 20 degrees of flexion as this seemed to line the fracture up the best. A gentle varus force was placed to get the knee out of valgus. Postreduction x-rays were obtained the following morning showing improved alignment on the lateral view. On the AP view there is some valgus angulation. Plan will be for the patient to be admitted to the hospitalist service. He can get discharged to rehabilitation per the hospitalist team. The skin will need to be inspected once daily at the proximal anterior tibia to make sure there is no breakdown and I did specifically warn the daughter there is a chance of skin loss and necrosis. He will have to be sent via ambulance to [facility] the following week, that would be the week of 09/18/2018, where he can be placed into a long leg fiberglass cast and we will confirm successful reduction again.
--- NOTE | 2018-09-14 18:28 | CR.PDOC ---
General Date of Consultation: Sep 14, 2018 Referring Provider: JENY BATISTA MD Attending Physician: MIRA TIERNEY DO Consultation Reason for Consult: Management of end-stage renal disease HISTORY OF PRESENT ILLNESS: Mr. Dubois is an 87-year-old gentleman who was admitted yesterday due to altered mental status during diaysis. His dialysis was terminated one hour early. Of note patient was recently admitted on 08/28/18 and discharged on 09/12/2018 for altered mental status. He was discharged to [facility]. It has been reported that patient fell twice in the rehabilitation home yesterday, resulting in Comminuted impacted fractures of the proximal tibial and fibula.He has a known history of end-stage renal disease, mild dementia, hypertension, congestive heart failure, hypothyroidism, chronic obstructive pulmonary disease (COPD) and urinary retention requiring chronic Posadas catheter placement. According to report patient became obtunded during dialysis and attempted to pull out his dialysis needle. And as a result, he did not complete his dialysis. He is routinely s cheduled for dialysis on Tuesday, Tuesday and Tuesday. He was then transferred to emergency room. In the emergency room, he was unable to provide adequate history. His daughter who was at bedside provided the history. Overnight he pulled out his IV. This morning he pulled out his second IV. He is still confused and agitated. PAST MEDICAL AND SURGICAL HISTORY: Significant for: 1. Hypertension. 2. COPD. 3. Diastolic congestive heart failure. 4. End-stage renal disease requiring maintenance hemodialysis. 5. History of glaucoma. 6. Prior history of stroke. 7. 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 8. History of anemia of chronic kidney disease. 9. Dementia Past surgical history is significant for left femoral hemiarthroplasty, esophagogastroduodenoscopy (EGD), colonoscopy, bilateral cataract surgery, arteriovenous (AV) fistula in right arm and testicular removal. MEDICATIONS: His home medications include: - ICaps 1 capsule daily - Renovite 1 tablet daily - aspirin 81 mg daily - Carvedilol 12.5 mg twice a day - vitamin D 50,000 units every 2 weeks - folic acid 1 mg daily - levothyroxine 25 mcg daily - Megace 40 mg/mL 5 mL daily - midodrine 5 mg daily - Renvela 800 mg 2 tablets with meals - Travatan eye drops 1 drop in both eyes at bedtime ALLERGIES: The patient has allergy to CIPROFLOXACIN and BACTRIM. PERSONAL AND SOCIAL HISTORY: Patient was previously living independently and was using a walker for ambulation. He resides in the same complex as his daughter who is his healthcare proxy. Daughter frequently visits the patient for meals. He has remote history of smoking, which he quit a few years ago, and denies any alcohol or drug use. He is very hard of hearing. Following his last admission, [facility] REVIEW OF SYSTEMS: Patient is quite hard of hearing. He was very confused and disoriented yesterday and continues to be confused this AM. He has already pulled out 2 IV's. Ears, nose and throat are unremarkable. Cardiovascular system is negative for dyspnea or chest pain. Respiratory system is significant for COPD and history of aspiration pneumonia in the past. Genitourinary () system is significant for an indwelling Posadas catheter with history of recurrent urinary tract infections. Musculoskeletal Significant for comuninuted impacted fractures of the proximal tibial and fibula Endocrine system is significant for hypothyroidism and secondary hyperparathyroidism. Neurological system is significant for prior stroke and mild dementia. Hematological system is significant for anemia of chronic kidney disease. PHYSICAL EXAMINATION: Patient is extremely hard of hearing, he is resting comfortably in bed, he is confused, not oriented to person, place, situation, he is not combative, however, he has really pulled out 2 IVs Temperature is 98.0, pulse 74, respiratory rate 19, blood pressure 118/58, pulse oximetry 98 on 1 L of nasal cannula His head is atraumatic. Neck veins are not abnormally distended. There is no oral thrush or ulcers. Trachea is midline and thyroid is not enlarged. Heart sounds are regular rate, irregular in rhythm, No murmurs, no rubs Lungs have good bilateral air entry. Abdomen is soft and nontender and bowel sounds are normal. Extremities. No lower extremity edema, cast on patient's right leg extending f rom ankle to upper thigh, Neurology, he is not oriented to location, place, situation, he is not co mbative. However, he does appear agitated. LABORATORY DATA: This a.m.'s lab has a WBC of 15.8, RBC of 2.62, hemoglobin of 8.5, hematocrit of 27.6, platelets of 135. Sodium of 140, potassium of 5, chloride of 103, bicarbonate 25, BUN of 20, creatinine of 4.83, glomerular filtration rate of 12.3, calcium of 8.3, BNP of 4178 Imaging: Knee x-ray: Comminuted impacted fractures of the proximal tibial and fibula Chest x-ray: Cardiomegaly. Increased markings left base laterally, atelectasis versus early infiltrate. Extremity CT: Comminuted nonarticular proximal diametaphyseal fractures of the tibia and fibula as described in a patient with profound skeletal demineralization Knee x-ray: Nondisplaced impacted fractures of the proximal tibia and fibula (left) Ankle x-ray: No fracture noted.. Cervical spine CT: 1. There is no acute fracture. 2. There is cervical spondylosis at the C2-3 through C6-7 levels Chex x-ray: No acute disease. Head CT: 1. Small vessel ischemic disease. 2. Moderate volume loss. 3. There are punctate metallic densities in the globes. Hip x-ray: There is no acute fracture or dislocation Knee x-ray: Limited radiographs. Proximal tib-fib fractures as seen on the tib-fib views. Osteoporosis. Clothing artifact Tib-fib x-ray: Proximal tib-fib fractures with impaction. Marked diffuse osteopenia. Clothing artifact obscures fine bone detail in the region of the tibial plateau. PROBLEMS: 1. End-stage renal disease. Patient was dialyzed yesterday, though he did not complete his dialysis treatment due to his altered mental status. We will plan to dialyze him tomorrow. At present, his volume status is well-compensated and there is no emergent need for dialysis today. He will have one-to-one sitter during dialysis 2. Hypertension. Well controlled at this time. We will continue to monitor and adjust his medications as needed. In the past he has used midodrine for hypotension. That will be available to him. 3.UTI: Patient has a chronic indwelling Posadas catheter with recurrent urinary tract infections. We cannot remove the Posadas catheter due to retention. He was on ceftriaxone 1 gram every 24 hours. But due to his acute confusion state and pulling out his IV, I have recomended primary team to switch his antibiotic to PO. 4. Hyperphosphatemia. Patient is on Renvela 1600 mg three times a day with meals, which will be continued. 5. Altered mentation. Most likely his altered mentation was related to UTI. Will defer to primary team from managment 6. Comminuted impacted fractures of the proximal tibial and fibula. Orthopedic surgery has been consulted. Will defer further management to orthopedic team. Thank you for involving me in the care of Mr. Dubois. Nephrology will follow him along with you. Vital Signs/I&O Vital Signs Date Time Temp Pulse Resp B/P (MAP) Pulse Ox O2 Delivery O2 Flow Rate FiO2 09/14/18 14:00 Room Air 09/14/18 12:00 98.0 74 19 118/58 (78) 98 1.0 I&O- Last 24 Hours up to 6 AM 09/14/18 06:00 Intake Total 50 ml Output Total 0 ml Balance 50 ml Laboratory Data Labs 24H Laboratory Tests 2 09/14/18 06:58: Immature Granulocyte % (Auto) 2.5, White Blood Count 15.8H, Red Blood Count 2.62L, Hemoglobin 8.5L, Hematocrit 27.6L, Mean Corpuscular Volume 105.3H, Mean Corpuscular Hemoglobin 32.4, Mean Corpuscular Hemoglobin Concent 30.8L, Red Cell Distribution Width 19.1H, Platelet Count 135L, Neutrophils (%) (Auto) 67.8H, Lymphocytes (%) (Auto) 4.7L, Monocytes (%) (Auto) 24.6H, Eosinophils (%) (Auto) 0.3, Basophils (%) (Auto) 0.1, Neutrophils # (Auto) 10.7H, Lymphocytes # (Auto) 0.8L, Monocytes # (Auto) 3.9H, Eosinophils # (Auto) 0.1, Basophils # (Auto) 0.0, Nucleated Red Blood Cells % (auto) 0.6H, Platelet Estimate NORMAL, Polychromasia 1+, Hypochromasia 1+, Poikilocytosis 1+, Basophilic Stippling 1+, Anisocytosis 2+, Microcytosis 2+, Ovalocytes 1+, Anion Gap 12, Glomerular Filtration Rate 12.3L, Blood Urea Nitrogen 20H, Creatinine 4.82H, Sodium Level 140, Potassium Level 5.0, Chloride Level 103, Carbon Dioxide Level 25, Calcium Level 8.3L, MB-[id number]-Type Natriuretic Peptide 4178H 09/14/18 10:39: Nucleated Red Blood Cells % (auto) 0.8H CBC/BMP Laboratory Tests 09/14/18 06:58 Red Blood Count 2.62 L, Mean Corpuscular Volume 105.3 H, Mean Corpuscular Hemoglobin 32.4, Mean Corpuscular Hemoglobin Concent 30.8 L, Red Cell Distribution Width 19.1 H, Neutrophils (%) (Auto) 67.8 H, Lymphocytes (%) (Auto) 4.7 L, Monocytes (%) (Auto) 24.6 H, Eosinophils (%) (Auto) 0.3, Basophils (%) (Auto) 0.1, Neutrophils # (Auto) 10.7 H, Lymphocytes # (Auto) 0.8 L, Monocytes # (Auto) 3.9 H, Eosinophils # (Auto) 0.1, Basophils # (Auto) 0.0, Calcium Level 8.3 L 09/14/18 10:39 Red Blood Count 2.62 L, Mean Corpuscular Volume 103.4 H, Mean Corpuscular Hemoglobin 32.8, Mean Corpuscular Hemoglobin Concent 31.7 L, Red Cell Distribution Width 19.4 H Microbiology Microbiology 09/13/18 Blood Culture, Received Pending 09/13/18 Blood Culture - Preliminary, Resulted No growth after 24 hours . All specim... Allergies Coded Allergies: Ciprofloxacin (Verified Adverse Reaction, Mild, metabolic encephalopathy, 09/13/18) Sulfamethoxazole w/Trimethoprim (Unverified Adverse Reaction, Mild, METABOLIC ENCEPHALOPATHY, 09/13/18) Home Medications Scheduled (Icaps) 1 Cap Cap, 1 CAP PO DAILY, (Reported) (Mandie-Musa) 1 Tab Tab, 1 TAB PO QPM, (Reported) Aspirin (Aspirin EC) 81 Mg Tab, 81 MG PO DAILY, (Reported) Brimonidine Tartrate (Brimonidine Tartrate) 0.2 % Bel, 1 DROP OU BID, (Reported) Carvedilol (Carvedilol) 12.5 Mg Tab, 25 MG PO BID for 30 Days, #60 TAKES IF BP (S) IS OVER 140 Cholecalciferol (Vitamin D3) 50,000 Unit Cap, 50,000 UNIT PO Q2WK, (Reported) TAKES ON THE AND 14TH OF THE MONTH Folic Acid (Folic Acid) 1 Mg Tab, 1 MG PO DAILY, (Reported) Levothyroxine Sodium (Synthroid) 25 Mcg Tab, 25 MCG PO DAILY, (Reported) Megestrol Acetate (Megestrol Acetate) 40 Mg/Ml Ashley, 5 ML PO DAILY, (Reported) Midodrine HCl (Midodrine HCl) 5 Mg Tab, 5 MG PO 3XW, (Reported) Sevelamer Carbonate (Renvela) 800 Mg Tab, 1,600 MG PO WM, (Reported) Travoprost (Travatan Z) 50 Drop/2.5 Ml Soln, 1 DROP OU QHS, (Reported) Scheduled PRN Acetaminophen (Tylenol Extra Strength) 500 Mg Tab, 1,000 MG PO Q6H PRN for PAIN, (Reported) Albuterol/Ipratropium (Ipratropium Globe/Albut 0.5-2.5 (3) mg/3Ml) 1 Bel Bel, 1 DOSE INH Q6H PRN for SHORTNESS OF BREATH, (Reported) Loperamide Hcl (Imodium A-D) 2 Mg Tab, 2 MG PO PRN PRN for DIARRHEA, (Reported) Miscellaneous Medications Patiromer Sorbitex Calcium (Veltassa) 8.4 Gm Pow, 8.4 GM PO, (Reported) GME ATTESTATION GME ATTESTATION My faculty preceptor for this patient encounter was physically present during the encounter and was fully available. All aspects of the patient interview, examination, medical decision making process, and medical care plan development were reviewed and approved by the faculty preceptor. The faculty preceptor is aware and concurs with the plan as stated in the body of this note and will attest to such by his/her cosignature. LISA NICOLAS DO Sep 14, 2018 17:07
[2018-09-14 20:00] VITALS: BP 122/62
[2018-09-14] MEDS: ACETAMINOPHEN 500 MG TAB PO PRN (20:30)
[2018-09-15] VITALS: BP 100/57
[2018-09-15] MEDS: IPRATROPIUM 0.5MG/ALBUTEROL 2.5MG INH SOL UD 3ML (DUONEB)(J7620) NEB SCH ×6 (04:35→23:48)
[2018-09-15 05:43] LABS: BASO % 0.1 % (0.0-1.0); EOS # 0.2 10^3/uL (0.0-0.50); EOS % 1.5 % (0.0-3.0); HEMATOCRIT 24.4 % (42.0-52.0); HEMOGLOBIN 7.8 g/dl (13.5-17.5); LYMPH # 1.3 10^3/uL (1.5-4.5); LYMPH % 9.6 % (24.0-44.0); MEAN CORPUSCULAR HEMOGLOBIN 32.1 pg (27.0-33.0); MEAN CORPUSCULAR VOLUME 100.4 fl (80.0-96.0); MONO % 24.8 % (0.0-5.0); NEUTROPHILS # 8.2 10^3/uL (1.8-7.7); NEUTROPHILS % 60.6 % (36.0-66.0); PLATELET COUNT, AUTOMATED 170 10^3/uL (150-450); RED BLOOD COUNT 2.43 10^6/uL (4.30-6.10); WHITE BLOOD COUNT 13.5 10^3/uL (4.0-10.0)
[2018-09-15 05:55] LABS: MONO # 3.4 10^3/uL (0.0-0.8)
[2018-09-15 06:03] LABS: CALCIUM LEVEL 8.2 MG/DL (8.8-10.2); CREATININE FOR GFR 6.2 MG/DL (0.70-1.30); GLOMERULAR FILTRATION RATE 9.2 (>35); POTASSIUM SERUM 4.1 MEQ/L (3.5-5.1)
[2018-09-15] MEDS: LEVOTHYROXINE 25MCG TABLET (0.025MG) PO SCH (06:45)
[2018-09-15 08:00] VITALS: BP 147/55
[2018-09-15] MEDS: MEGESTROL SUSP 400 MG/10 ML UDC PO SCH (08:02)
[2018-09-15] MEDS: ASPIRIN 81 MG ENTERIC TAB PO SCH (08:02)
[2018-09-15] MEDS: FOLIC ACID 1 MG TAB PO SCH (08:02)
[2018-09-15] MEDS: CARVedilol 12.5 MG TAB PO SCH ×2 (08:03→21:47)
[2018-09-15] MEDS ORDERED: HEPARIN 1,000 UNITS/ML 10ML VIAL (FOR RADIOLOGY& DIALYSIS ONLY) IV ONE (12:15)
--- NOTE | 2018-09-15 12:23 | IPNPDOC ---
Date Seen The patient was seen on 09/15/18. Progress Note SUBJECTIVE: Per RN overnight, pt drank well with his straw, and does not usually converse. When awakened with a sternal rub, pt usually gets annoyed, and yells out. He opened his eyes and went back to sleep not cooperating with the interview and exam today. saline iv lock discontinued yesterday 09/14/18 because pt pulled it out a second time, and renally dosed levaquin changed to po. OBJECTIVE: PHYSICAL EXAMINATION: VITAL SIGNS: PLS SEE BELOW GENERAL APPEARANCE: noncooperative not answering questions. supine in position on his left side at 30 degree head elevation HEENT: Atraumatic. Neck: Supple. LUNGS:diminished. bibasilar crackles and coarse rhonchi. CARDIOVASCULAR: S1 and 2 heard, no murmurs, rubs or gallops. ABDOMEN: soft, not tender, not distended. Bowel sounds normoactive. MUSCULOSKELETAL: Apparently within normal limits. EXTREMITIES: No pedal edema, 2+ bilateral pedal pulses noted. RLE cast noted. NEUROLOGICAL: Awake, alert, responds sometimes to commands.. PSYCHIATRIC: Normal affect LABORATORY DATA: See below. IMAGING: Right tubular/fibular series:Proximal tib-fib fractures with impaction. Marked diffuse osteopenia. Clothing artifact obscures fine bone detail in the region of the tibial plateau. Left hip x-ray: No acute fracture or dislocation. CT head without contrast: 1. Small vessel ischemic disease, 2 moderate volume loss, 3 punctate metallic densities in the globes. Chest x-ray: No acute disease. CT cervical spine without contrast: No acute fracture. There is cervical spondylosis at C2-C3 through C6 to C7. Right ankle x-ray: No acute fracture. CT right lower extremity: Comminuted nonarticular proximal diametaphyseal fractures of the tibia and fibula. EKG: Sinus rhythm with occasional PVCs, no acute ST or T-wave changes. X-ray right lateral right knee: Nondisplaced impacted fractures of the proximal tibia and fibula. MICROBIOLOGY: Please see below. ASSESSMENT AND PLAN: Patient is an 87-year-old man with history of ESRD on hemodialysis Mondays, Wednesdays and Fridays, hypothyroidism, glaucoma, COPD, left ventricle diastolic dysfunction, chronic indwelling urinary Posadas catheter, anemia of chronic disease. Patient was brought in from dialysis unit on account of altered mental status. It was reported that he had just started dialysis when he noticed he was altered dialysis was discontinued and patient brought into the emergency room. However, off note, Patient was recently evaluated and treated for altered mental status, admitted August 2018 and discharged to a rehabilitation home. Also noted that he fell twice at the rehabilitation home yesterday. At this time I'm unable to get adequate history from patient, his daughter is not at bedside at this time. However, he is able to deny any fever or chills, nausea, vomiting, palpitations, chest pains, cough or shortness of breath. He still makes some urine. He was evaluated in the emergency room with eter placement. Altered mental status. Patient examined and found a little dry. We'll give normal saline to 50 mils bolus one time. awaitng final urine culture report. renally dosed Levaquin started empirically on 09/13/18 until c&s returns. negative blood cultures so far. no focal deficits, and with purposeful movements, but uncooperative today Abnormal UA secondary to chronic indwelling catheter await final urine cx results and on renally dosed levaquin. Fracture of right tibia and fibula, reduced 09/13/[address] stratton. repeat xray 09/14/18. fu as outpt next or fi for long leg cast. continue splint until seen as outpt. pain control. bowel regimen. ESRD on hemodialysis Mondays, Wednesdays and Fridays nephrology consulted. repeat cxr due to crackles 09/14/18. hypothyroidism, chronic reviewed tsh. on synthroid glaucoma, chronic COPD, compensated prn nebs left ventricle diastolic dysfunction, dialysis dependent defer to nephrology for fluid and volume management. chronic indwelling urinary Posadas catheter, at risk fo recurrent UTI on empiric renally dosed levaquin. dc if urine cx is negative anemia of chronic disease no acute indication for rbc transfusion GI prophylaxis not indicated at this time. disposition: activity per ortho. PT clearance. VS, I&O, 24H, Fishbone Vital Signs/I&O Vital Signs Date Time Temp Pulse Resp B/P (MAP) Pulse Ox O2 Delivery O2 Flow Rate FiO2 09/15/18 08:03 91 147/55 09/15/18 08:00 98.1 19 Room Air 1/25/19 00:00 2.0 09/14/18 12:00 98 I&O- Last 24 Hours up to 6 AM 09/15/18 05:59 Intake Total 960 ml Output Total 0 ml Balance 960 ml Laboratory Data 24H LABS Laboratory Tests 2 09/14/18 22:50: Urine Color YELLOW, Urine Appearance HAZY, Urine pH 8.0, Urine Specific Sherwood 1.013, Urine Protein 3+H, Urine Glucose (UA) 2+H, Urine Ketones NEGATIVE, Urine Blood 1+H, Urine Nitrite NEGATIVE, Urine Bilirubin NEGATIVE, Urine Urobilinogen 0.2, Urine Leukocyte Esterase TRACEH, Urine WBC (Auto) 8H, Urine RBC (Auto) 2, Urine Hyaline Casts (Auto) 0, Urine Bacteria (Auto) NEGATIVE, Urine Squamous Epithelial Cells 0, Urine Transitional Epithelial Cells <1, Urine Mucus (Auto) SMALL, Urine Sperm (Auto) 09/15/18 05:14: Immature Granulocyte % (Auto) 3.4H, White Blood Count 13.5H, Red Blood Count 2.43L, Hemoglobin 7.8L, Hematocrit 24.4L, Mean Corpuscular Volume 100.4H, Mean Corpuscular Hemoglobin 32.1, Mean Corpuscular Hemoglobin Concent 32.0, Red Cell Distribution Width 19.3H, Platelet Count 170, Neutrophils (%) (Auto) 60.6, Lymphocytes (%) (Auto) 9.6L, Monocytes (%) (Auto) 24.8H, Eosinophils (%) (Auto) 1.5, Basophils (%) (Auto) 0.1, Neutrophils # (Auto) 8.2H, Lymphocytes # (Auto) 1.3L, Monocytes # (Auto) 3.4H, Eosinophils # (Auto) 0.2, Basophils # (Auto) 0.0, Nucleated Red Blood Cells % (auto) 0.7H, Anion Gap 9, Glomerular Filtration Rate 9.2L, Blood Urea Nitrogen 33#H, Creatinine 6.20H, Sodium Level 137, Potassium Level 4.1, Chloride Level 103, Carbon Dioxide Level 25, Calcium Level 8.2L CBC/BMP Laboratory Tests 09/15/18 05:14 Red Blood Count 2.43 L, Mean Corpuscular Volume 100.4 H, Mean Corpuscular Hemoglobin 32.1, Mean Corpuscular Hemoglobin Concent 32.0, Red Cell Distribution Width 19.3 H, Neutrophils (%) (Auto) 60.6, Lymphocytes (%) (Auto) 9.6 L, Monocytes (%) (Auto) 24.8 H, Eosinophils (%) (Auto) 1.5, Basophils (%) (Auto) 0.1, Neutrophils # (Auto) 8.2 H, Lymphocytes # (Auto) 1.3 L, Monocytes # (Auto) 3.4 H, Eosinophils # (Auto) 0.2, Basophils # (Auto) 0.0, Calcium Level 8.2 L Microbiology Microbiology 09/13/18 Blood Culture - Preliminary, Resulted No growth after 24 hours . All specim... 09/13/18 Blood Culture - Preliminary, Resulted No growth after 24 hours . All specim... 09/14/18 Urine Culture, Received Pending JENY BATISTA MD Sep 15, 2018 12:23
[2018-09-15 17:00] VITALS: BP 150/65
[2018-09-15 22:00] VITALS: BP 146/65
[2018-09-16] MEDS: IPRATROPIUM 0.5MG/ALBUTEROL 2.5MG INH SOL UD 3ML (DUONEB)(J7620) NEB SCH ×6 (04:00→23:53)
[2018-09-16] MEDS: LevoFLOXacin 250 MG TABLET PO SCH (05:32)
[2018-09-16] MEDS: LEVOTHYROXINE 25MCG TABLET (0.025MG) PO SCH (05:32)
[2018-09-16 05:54] VITALS: BP 130/50
[2018-09-16 06:24] LABS: BASO % 0.3 % (0.0-1.0); EOS # 0.1 10^3/uL (0.0-0.50); EOS % 1.1 % (0.0-3.0); HEMATOCRIT 28.8 % (42.0-52.0); LYMPH # 1.1 10^3/uL (1.5-4.5); LYMPH % 9.1 % (24.0-44.0); MEAN CORPUSCULAR HEMOGLOBIN 31.1 pg (27.0-33.0); MEAN CORPUSCULAR HGB CONC 31.3 g/dl (32.0-36.5); MEAN CORPUSCULAR VOLUME 99.7 fl (80.0-96.0); MONO % 27.9 % (0.0-5.0); NEUTROPHILS # 6.8 10^3/uL (1.8-7.7); NEUTROPHILS % 56.7 % (36.0-66.0); PLATELET COUNT, AUTOMATED 156 10^3/uL (150-450); RED BLOOD COUNT 2.89 10^6/uL (4.30-6.10); WHITE BLOOD COUNT 11.9 10^3/uL (4.0-10.0)
[2018-09-16 06:37] LABS: CREATININE FOR GFR 4.14 MG/DL (0.70-1.30); GLOMERULAR FILTRATION RATE 14.7 (>35); POTASSIUM SERUM 4.6 MEQ/L (3.5-5.1)
[2018-09-16 07:21] LABS: MONO # 3.3 10^3/uL (0.0-0.8)
[2018-09-16] MEDS: MEGESTROL SUSP 400 MG/10 ML UDC PO SCH (09:08)
[2018-09-16] MEDS: FOLIC ACID 1 MG TAB PO SCH (09:08)
[2018-09-16] MEDS: CARVedilol 12.5 MG TAB PO SCH ×2 (09:08→20:55)
[2018-09-16] MEDS: ASPIRIN 81 MG ENTERIC TAB PO SCH (09:08)
--- NOTE | 2018-09-16 10:17 | IPNPDOC ---
Date Seen The patient was seen on 09/16/18. Progress Note SUBJECTIVE: Pt is much more awake and answering questions this morning. "I want to eat. I don't need any help." pt remains with a splint until long leg cast canb e placed by ortho in the office next week. OBJECTIVE: PHYSICAL EXAMINATION: VITAL SIGNS: PLS SEE BELOW GENERAL APPEARANCE: Pt is much more awake and answering questions this morning. HEENT: Atraumatic. Neck: Supple. LUNGS:diminished. CARDIOVASCULAR: S1 and 2 heard, no murmurs, rubs or gallops. ABDOMEN: soft, not tender, not distended. Bowel sounds normoactive. MUSCULOSKELETAL: Apparently within normal limits. EXTREMITIES: No pedal edema, 2+ bilateral pedal pulses noted. RLE cast noted. NEUROLOGICAL: Awake, alert, responds sometimes to commands.. PSYCHIATRIC: Normal affect LABORATORY DATA: See below. IMAGING: Right tubular/fibular series:Proximal tib-fib fractures with impaction. Marked diffuse osteopenia. Clothing artifact obscures fine bone detail in the region of the tibial plateau. Left hip x-ray: No acute fracture or dislocation. CT head without contrast: 1. Small vessel ischemic disease, 2 moderate volume loss, 3 punctate metallic densities in the globes. Chest x-ray: No acute disease. CT cervical spine without contrast: No acute fracture. There is cervical spondylosis at C2-C3 through C6 to C7. Right ankle x-ray: No acute fracture. CT right lower extremity: Comminuted nonarticular proximal diametaphyseal fractures of the tibia and fibula. EKG: Sinus rhythm with occasional PVCs, no acute ST or T-wave changes. X-ray right lateral right knee: Nondisplaced impacted fractures of the proximal tibia and fibula. MICROBIOLOGY: Please see below. ASSESSMENT AND PLAN: Patient is an 87-year-old man with history of ESRD on hemodialysis Mondays, Wednesdays and Fridays, hypothyroidism, glaucoma, COPD, left ventricle diastolic dysfunction, chronic indwelling urinary Posadas catheter, anemia of chronic disease. Patient was brought in from dialysis unit on account of altered mental status. It was reported that he had just started dialysis when he noticed he was altered dialysis was discontinued and patient brought into the emergency room. However, off note, Patient was recently evaluated and treated for altered mental status, admitted August 2018 and discharged to a rehabilitation home. Also noted that he fell twice at the rehabilitation home yesterday. At this time I'm unable to get adequate history from patient, his daughter is not at bedside at this time. However, he is able to deny any fever or chills, nausea, vomiting, palpitations, chest pains, cough or shortness of breath. He still makes some urine. He was evaluated in the emergency room with eter placement. Altered mental status. Patient examined and found a little dry. s/p normal saline to 50 mils bolus one time. awaitng final urine culture report. renally dosed Levaquin started empirically on 09/13/18 until c&s returns. negative blood cultures so far.Pt is much more awake and answering questions this morning. Abnormal UA secondary to chronic indwelling catheter await final urine cx results and on renally dosed levaquin. Fracture of right tibia and fibula, reduced 09/13/[address] stratton. repeat xray 09/14/18. fu as outpt next or fi for long leg cast. continue splint until seen as outpt. pain control. bowel regimen. ESRD on hemodialysis Mondays, Wednesdays and Fridays nephrology consulted. repeat cxr due to crackles 09/14/18. hypothyroidism, chronic reviewed tsh. on synthroid glaucoma, chronic COPD, compensated prn nebs left ventricle diastolic dysfunction, dialysis dependent defer to nephrology for fluid and volume management. chronic indwelling urinary Posadas catheter, at risk fo recurrent UTI on empiric renally dosed levaquin. dc if urine cx is negative anemia of chronic disease no acute indication for rbc transfusion GI prophylaxis not indicated at this time. disposition: activity per ortho. PT clearance. VS, I&O, 24H, [facility] Vital Signs/I&O Vital Signs Date Time Temp Pulse Resp B/P (MAP) Pulse Ox O2 Delivery O2 Flow Rate FiO2 09/16/18 09:08 90 130/50 09/16/18 05:54 98.1 18 97 Room Air 09/15/18 00:00 2.0 I&O- Last 24 Hours up to 6 AM 09/16/18 06:00 Intake Total 170 ml Output Total 1000 ml Balance -830 ml Laboratory Data 24H LABS Laboratory Tests 2 09/16/18 05:36: Immature Granulocyte % (Auto) 4.9H, White Blood Count 11.9H, Red Blood Count 2.89L, Hemoglobin 9.0L, Hematocrit 28.8L, Mean Corpuscular Volume 99.7H, Mean Corpuscular Hemoglobin 31.1, Mean Corpuscular Hemoglobin Concent 31.3L, Red Cell Distribution Width 20.1H, Platelet Count 156, Neutrophils (%) (Auto) 56.7, Lym phocytes (%) (Auto) 9.1L, Monocytes (%) (Auto) 27.9H, Eosinophils (%) (Auto) 1.1, Basophils (%) (Auto) 0.3, Neutrophils # (Auto) 6.8, Lymphocytes # (Auto) 1.1L, Monocytes # (Auto) 3.3H, Eosinophils # (Auto) 0.1, Basophils # (Auto) 0.0, Nucleated Red Blood Cells % (auto) 0.7H, Anion Gap 7L, Glomerular Filtration Rate 14.7L, Blood Urea Nitrogen 19H, Creatinine 4.14H, Sodium Level 143, Potassium Level 4.6, Chloride Level 111H, Carbon Dioxide Level 25, Calcium Level 9.0 CBC/BMP Laboratory Tests 09/16/18 05:36 Red Blood Count 2.89 L, Mean Corpuscular Volume 99.7 H, Mean Corpuscular Hemoglobin 31.1, Mean Corpuscular Hemoglobin Concent 31.3 L, Red Cell Distribution Width 20.1 H, Neutrophils (%) (Auto) 56.7, Lymphocytes (%) (Auto) 9.1 L, Monocytes (%) (Auto) 27.9 H, Eosinophils (%) (Auto) 1.1, Basophils (%) (Auto) 0.3, Neutrophils # (Auto) 6.8, Lymphocytes # (Auto) 1.1 L, Monocytes # (Auto) 3.3 H, Eosinophils # (Auto) 0.1, Basophils # (Auto) 0.0, Calcium Level 9.0 Microbiology Microbiology 09/13/18 Blood Culture - Preliminary, Resulted No Growth after 48 hours. All Specime... 09/13/18 Blood Culture - Preliminary, Resulted No Growth after 48 hours. All Specime... 09/14/18 Urine Culture, Received Pending JENY BATISTA MD Sep 16, 2018 10:17
--- NOTE | 2018-09-16 11:48 | IPN ---
DATE: 09/15/2018 SUBJECTIVE: Nikko is seen and examined this morning on the hemodialysis unit receiving his treatment. I spoke with his daughter over the phone to get a consent for blood transfusion. There is a 1-to-1 sitter present at the bedside. He remains oriented only times one and is not at his baseline mental status. He denies any shortness of breath, otherwise review of systems is limited. Temperature 98.2, pulse 99, respiratory rate 20, blood pressure 150/65, saturating 100% on room air. Intake yesterday was 900. Dialysis today removed 1000. Weight on the bed scale today is not recorded. General: Patient is seen in the hemodialysis unit receiving his maintenance treatment. Eyes are open. He makes eye contact. He is hard of hearing. He is only oriented times one. Tongue is dry. Neck is supple. Jugular veins are not elevated. Cardiac: S1, S2. Heart wounds are regular. Lungs: Diminished breath sounds secondary to poor patient effort but otherwise clear with no crackle or rale. Abdomen is soft and nontender. Extremities: The right lower extremity is wrapped up to the upper thigh with caste. The left lower extremity has no edema. There is upper extremity fistula in use. Neurologic: Oriented times one. Follows some simple commands. Is not at his baseline mental status. LABS: White count 13.5, hemoglobin 7.8, platelet 170. Sodium 137, potassium 4.1. Microbiology: Urine culture is pending. Blood cultures show no growth thus far. INPATIENT MEDICATIONS: Reviewed by myself and no change from prior. He continued renally dosed Levaquin. PROBLEMS: 1. End-stage renal disease on hemodialysis on Tuesday, Tuesday and Tuesday as scheduled. Patient is dialysis today with goal fluid removal of 1 liter. There is a 1-to-1 sitter at the bedside due to his encephalopathy and he has been pulling the IV lines. He is being transfused one unit packed red blood cell with dialysis today. His electrolytes are otherwise acceptable as is his volume status. 2. Anemia of end-stage renal disease: Hemoglobin is 7.8 today which is significantly below his baseline. I am transfusing one unit packed red blood cells and he will continue on Aranesp with dialysis. 3. Chronic indwelling Posadas catheter with history of recurrent urinary tract infections (UTIs) and presently with altered mentation. His urine culture is pending. Primary team has started him on empiric Levaquin. He was not able to get IV antibiotics because he kept on pulling out his peripheral IVs. His blood cultures remain negative thus far. 4. Fracture of right tibia and fibula reduced by orthopedist and continues with a splint. 5. History of diastolic congestive heart failure: Volume status is acceptable at present. His oral intake today has been pretty poor. Goal fluid removal today is only 1 liter.
[2018-09-16 14:00] VITALS: BP 131/71
--- NOTE | 2018-09-16 20:59 | IPN ---
DATE: 09/16/2017 Mr. Dubois is seen this morning on his bedside. He is very hard of hearing and also has mild chronic dementia. He has spilled coffee all over his bed and himself. He denies any nausea, vomiting, dyspnea, or chest pain. PHYSICAL EXAMINATION: Temperature 98.1 degrees Fahrenheit, heart rate 90 per minute, respiratory rate 18 per minute, blood pressure 130/50 mm of mercury, and oxygen saturation 97%. His head is atraumatic. Neck is supple and without jugular venous distention (JVD) or thyroid enlargement. Oral mucosa is somewhat dry but without any thrush or ulcers. Heart sounds are irregular in rhythm and lungs clear to auscultation. Abdomen soft and nontender. Extremities have no cyanosis or clubbing. Neurologically, he is confused but seems to be close to his baseline. Today's labs show WBC count 11.9, hemoglobin 9.0, and hematocrit 28.8. Platelets 156. Sodium 143, potassium 4.6, CO2 of 25, BUN 19, and creatinine 4.24. PROBLEMS: 1. End-stage renal disease. The patient was dialyzed yesterday, and next dialysis will be scheduled for Tuesday. At this point, there is no emergent indication for dialysis today. 2. Anemia. His anemia is stable and improved following transfusion. No further transfusion is indicated today. Will continue to monitor him closely. 3. Altered mentation. The patient does have chronic dementia, and his mentation gets worse in case of acute illness. At this point, he seems to be almost at his baseline. 4. Urinary tract infection (UTI). The patient is currently on levofloxacin 250 mg every 48 hours. He has a chronic indwelling Posadas catheter due to urinary retention and has history of recurrent UTIs. 5. Congestive heart failure. His volume status is clinically well compensated, and elevated brain natriuretic peptide (BNP) is most likely chronic and not an indication for decompensation.
[2018-09-16 22:00] VITALS: BP 158/71
[2018-09-17] MEDS: IPRATROPIUM 0.5MG/ALBUTEROL 2.5MG INH SOL UD 3ML (DUONEB)(J7620) NEB SCH ×5 (04:00→20:26)
[2018-09-17] MEDS: LEVOTHYROXINE 25MCG TABLET (0.025MG) PO SCH (05:53)
[2018-09-17 06:00] VITALS: BP 150/66
[2018-09-17 06:21] LABS: HEMATOCRIT 30.2 % (42.0-52.0); HEMOGLOBIN 9.5 g/dl (13.5-17.5); MEAN CORPUSCULAR HEMOGLOBIN 31.8 pg (27.0-33.0); MEAN CORPUSCULAR HGB CONC 31.5 g/dl (32.0-36.5); PLATELET COUNT, AUTOMATED 162 10^3/uL (150-450); RED BLOOD COUNT 2.99 10^6/uL (4.30-6.10); WHITE BLOOD COUNT 10.5 10^3/uL (4.0-10.0)
[2018-09-17 06:48] LABS: CALCIUM LEVEL 8.8 MG/DL (8.8-10.2); CREATININE FOR GFR 5.58 MG/DL (0.70-1.30); GLOMERULAR FILTRATION RATE 10.4 (>35); POTASSIUM SERUM 4.2 MEQ/L (3.5-5.1)
[2018-09-17 07:10] LABS: ATYPICAL LYMPH 3 % (0-5); BASOPHILS 1 % (0-4); EOSINOPHILS 6 % (0-5); LYMPHOCYTES 9 % (16-52); METAMYELOCYTES 2 % (0-0); MONOCYTES 17 % (0-8); MYELOCYTES 2 % (0-0); NEUTROPHILS 60 % (35-75); OVALOCYTES 1+; PLATELET ESTIMATE NORMAL (NORMAL); POIKILOCYTOSIS 1+; POLYCHROMASIA 1+
[2018-09-17 07:11] LABS: ANISOCYTOSIS 2+
[2018-09-17] MEDS: MEGESTROL SUSP 400 MG/10 ML UDC PO SCH (08:27)
[2018-09-17] MEDS: FOLIC ACID 1 MG TAB PO SCH (08:27)
[2018-09-17] MEDS: ASPIRIN 81 MG ENTERIC TAB PO SCH (08:27)
[2018-09-17] MEDS: CARVedilol 12.5 MG TAB PO SCH ×2 (08:28→21:28)
[2018-09-17 14:00] VITALS: BP 119/57
[2018-09-17] MEDS: ACETAMINOPHEN 500 MG TAB PO PRN (21:29)
[2018-09-17 22:00] VITALS: BP 141/67
[2018-09-18] MEDS: IPRATROPIUM 0.5MG/ALBUTEROL 2.5MG INH SOL UD 3ML (DUONEB)(J7620) NEB SCH ×6 (03:58→20:59)
--- NOTE | 2018-09-18 05:14 | IPN ---
DATE: 09/17/2018 Mr. Dubois is seen this morning on his bedside. He remains weak and somewhat confused. He was admitted with tibia and fibula fracture of right lower extremity secondary to [facility] He has known history of end-stage renal disease and has been dialysis dependent. The patient denies any dyspnea, chest pain, nausea or vomiting. PHYSICAL EXAMINATION: VITALS: Temperature 98.1 degrees Fahrenheit, heart rate 80 per minute, respiratory rate 20 per minute and blood pressure 150/66 mmHg and oxygen saturation 95% on room air. HEENT: His head is atraumatic. Neck is supple and without jugular venous distention (JVD) or thyroid enlargement. HEART: Sounds are regular. LUNGS: Lungs with diminished breath sounds and poor inspiratory effort. ABDOMEN: Soft and nontender. Bowel sounds are normal. EXTREMITIES: Extremities have no cyanosis or clubbing. His right lower extremity is wrapped in a splint and dressings. NEUROLOGICAL: Neurologically he seems to be at about his baseline mentation. LABORATORIES: Today's labs show white blood cell (WBC) count 10.5, hemoglobin 9.5 and hematocrit 30.2. Platelets 162. Sodium 142, potassium 4.2, CO2 21, BUN 34 and creatinine 5.58. PROBLEMS: 1. End-stage renal disease. The patient is regularly dialyzed on Tuesday, Tuesday and Tuesday schedule. He was last dialyzed on Tuesday and we will plan to dialyze him again tomorrow. 2. Congestive heart failure. She has chronically elevated BNP level. However, clinically his volume status is reasonably well-compensated and he is oxygenating about 95-96% on room air. We will try to remove about 1 to 1.5 liters of fluid with the next dialysis tomorrow. 3. Anemia related to end-stage renal disease and stable at present following initial transfusion of 1 unit of packed red blood cells (RBC). No urgent intervention is indicated at this time. 4. Right leg fracture. The patient remains on an analgesics and has a splint and orthopedics has recommended to treat him conservatively due to high risk for surgical complications. In view of his dementia, end-stage renal disease I agree with the plan for conservative treatment.
[2018-09-18] MEDS: LevoFLOXacin 250 MG TABLET PO SCH (05:49)
[2018-09-18] MEDS: LEVOTHYROXINE 25MCG TABLET (0.025MG) PO SCH (05:49)
[2018-09-18] MEDS: FOLIC ACID 1 MG TAB PO SCH (05:49)
[2018-09-18] MEDS: MEGESTROL SUSP 400 MG/10 ML UDC PO SCH (05:49)
[2018-09-18] MEDS: CARVedilol 12.5 MG TAB PO SCH ×2 (05:50→21:26)
[2018-09-18] MEDS: ASPIRIN 81 MG ENTERIC TAB PO SCH (05:50)
[2018-09-18 06:00] VITALS: BP 144/72
[2018-09-18 06:11] LABS: HEMATOCRIT 27.8 % (42.0-52.0); MEAN CORPUSCULAR HEMOGLOBIN 31.9 pg (27.0-33.0); MEAN CORPUSCULAR HGB CONC 32.4 g/dl (32.0-36.5); MEAN CORPUSCULAR VOLUME 98.6 fl (80.0-96.0); PLATELET COUNT, AUTOMATED 167 10^3/uL (150-450); RED BLOOD COUNT 2.82 10^6/uL (4.30-6.10)
[2018-09-18 06:32] LABS: CALCIUM LEVEL 8.7 MG/DL (8.8-10.2); CREATININE FOR GFR 6.97 MG/DL (0.70-1.30); POTASSIUM SERUM 5.1 MEQ/L (3.5-5.1)
[2018-09-18 07:05] LABS: ATYPICAL LYMPH 1 % (0-5); BASOPHILS 1 % (0-4); EOSINOPHILS 4 % (0-5); LYMPHOCYTES 3 % (16-52); METAMYELOCYTES 2 % (0-0); MONOCYTES 19 % (0-8); NEUTROPHILS 70 % (35-75)
[2018-09-18 07:06] LABS: ANISOCYTOSIS 1+; CRENATED RBC 1+; POIKILOCYTOSIS 1+; POLYCHROMASIA 1+
[2018-09-18 07:07] LABS: PLATELET ESTIMATE NORMAL (NORMAL)
--- NOTE | 2018-09-18 09:16 | IPNPDOC ---
Date Seen The patient was seen on 09/18/18. Progress Note SUBJECTIVE: Pt is back to baseline. s/p fall x 2 at [facility]. family unhappy about falls x 2, and[facility] pt needs HD q [facility],and cannot be discharged on those days. medically stable for discharge. Ortho wants long leg cast to be done Dr. Stratton. pfs consulted for transport and ? dc or with fu appt w ortho pending. no new c/o. back to baseline mentation.pain is tolerable if not ambulating on current meds. no other issues per RN. OBJECTIVE: PHYSICAL EXAMINATION: VITAL SIGNS: PLS SEE BELOW GENERAL APPEARANCE: Pt is much more awake and answering questions this morning. HEENT: Atraumatic. Neck: Supple. LUNGS:diminished. CARDIOVASCULAR: S1 and 2 heard, no murmurs, rubs or gallops. ABDOMEN: soft, not tender, not distended. Bowel sounds normoactive. MUSCULOSKELETAL: Apparently within normal limits. EXTREMITIES: No pedal edema, 2+ bilateral pedal pulses noted. RLE cast noted. NEUROLOGICAL: Awake, alert, responds sometimes to commands.. PSYCHIATRIC: Normal affect LABORATORY DATA: See below. IMAGING: Right tubular/fibular series:Proximal tib-fib fractures with impaction. Marked diffuse osteopenia. Clothing artifact obscures fine bone detail in the region of the tibial plateau. Left hip x-ray: No acute fracture or dislocation. CT head without contrast: 1. Small vessel ischemic disease, 2 moderate volume loss, 3 punctate metallic densities in the globes. Chest x-ray: No acute disease. CT cervical spine without contrast: No acute fracture. There is cervical spondylosis at C2-C3 through C6 to C7. Right ankle x-ray: No acute fracture. CT right lower extremity: Comminuted nonarticular proximal diametaphyseal fractures of the tibia and fibula. EKG: Sinus rhythm with occasional PVCs, no acute ST or T-wave changes. X-ray right lateral right knee: Nondisplaced impacted fractures of the proximal tibia and fibula. MICROBIOLOGY: Please see below. ASSESSMENT AND PLAN: Patient is an 87-year-old man with history of ESRD on hemodialysis Mondays, Wednesdays and Fridays, hypothyroidism, glaucoma, COPD, left ventricle diastolic dysfunction, chronic indwelling urinary Posadas catheter, anemia of chronic disease. Patient was brought in from dialysis unit on account of altered mental status. It was reported that he had just started dialysis when he noticed he was altered dialysis was discontinued and patient brought into the emergency room. However, off note, Patient was recently evaluated and treated for altered mental status, admitted August 2018 and discharged to a rehabilitation home. Also noted that he fell twice at the rehabilitation home yesterday. At this time I'm unable to get adequate history from patient, his daughter is not at bedside at this time. However, he is able to deny any fever or chills, nausea, vomiting, palpitations, chest pains, cough or shortness of b reath. He still makes some urine. He was evaluated in the emergency room with eter placement. Altered mental status. Patient examined and found a little dry. s/p normal saline to 50 mils bolus one time. awaitng final urine culture report. renally dosed Levaquin started empirically on 09/13/18 until c&s returns. negative blood cultures so far.Pt is much more awake and answering questions this morning. Abnormal UA secondary to chronic indwelling catheter await final urine cx results and on renally dosed levaquin. Fracture of right tibia and fibula, reduced 09/13/[address] stratton. repeat xray 09/14/18. fu as outptthurs with ortho for long leg cast. continue splint until seen as outpt. pain control. bowel regimen. ESRD on hemodialysis Mondays, Wednesdays and Fridays nephrology consulted. repeat cxr due to crackles 09/14/18. hypothyroidism, chronic reviewed tsh. on synthroid glaucoma, chronic COPD, compensated prn nebs left ventricle diastolic dysfunction, dialysis dependent defer to nephrology for fluid and volume management. chronic indwelling urinary Posadas catheter, at risk fo recurrent UTI on empiric renally dosed levaquin. dc if urine cx is negative anemia of chronic disease no acute indication for rbc transfusion GI prophylaxis not indicated at this time. disposition:pfs consulted. if family ok w cartge rehab tx or . [facility] HD . ortho wants long leg cast or tue .appt to bemade. VS, I&O, 24H, [facility] Vital Signs/I&O Vital Signs Date Time Temp Pulse Resp B/P (MAP) Pulse Ox O2 Delivery O2 Flow Rate FiO2 09/18/18 06:00 97.3 72 15 144/72 (96) 97 Room Air 09/15/18 00:00 2.0 I&O- Last 24 Hours up to 6 AM 09/18/18 06:00 Intake Total 1140 ml Output Total 175 ml Balance 965 ml Laboratory Data 24H LABS Laboratory Tests 2 09/18/18 05:42: Immature Granulocyte % (Auto) , White Blood Count 10.0, Red Blood Count 2.82L, Hemoglobin 9.0L, Hematocrit 27.8L, Mean Corpuscular Volume 98.6H, Mean Corpuscular Hemoglobin 31.9, Mean Corpuscular Hemoglobin Concent 32.4, Red Cell Distribution Width 18.8H, Platelet Count 167, Monocytes # (Auto) , Nucleated Red Blood Cells % (auto) 0.2H, Neutrophils 70, Lymphocytes (Manual) 3L, Monocytes (Manual) 19H, Eosinophils (Manual) 4, Basophils (Manual) 1, Metamyelocytes 2H, Atypical Lymphocytes 1, Platelet Estimate NORMAL, Polychromasia 1+, Poikiloc ytosis 1+, Anisocytosis 1+, Crenated Cell 1+, Anion Gap 9, Glomerular Filtration Rate 8.0L, Blood Urea Nitrogen 48H, Creatinine 6.97H, Sodium Level 141, Potassium Level 5.1#, Chloride Level 109H, Carbon Dioxide Level 23, Calcium Level 8.7L CBC/BMP Laboratory Tests 09/18/18 05:42 Red Blood Count 2.82 L, Mean Corpuscular Volume 98.6 H, Mean Corpuscular Hemoglobin 31.9, Mean Corpuscular Hemoglobin Concent 32.4, Red Cell Distribution Width 18.8 H, Monocytes # (Auto) , Calcium Level 8.7 L Microbiology Microbiology 09/13/18 Blood Culture - Preliminary, Resulted No Growth after 72 hours. All specime... 09/13/18 Blood Culture - Preliminary, Resulted No Growth after 72 hours. All specime... 09/14/18 Urine Culture - Final, Complete JENY BATISTA MD Sep 18, 2018 08:40
[2018-09-18] MEDS ORDERED: DARBEPOETIN 100 MCG/0.5 ML *DIALYSIS* SYRINGE (J0882) IV SCH (12:00)
[2018-09-18] MEDS ORDERED: HEPARIN 1,000 UNITS/ML 10ML VIAL (FOR RADIOLOGY& DIALYSIS ONLY) IV ONE (12:00)
--- NOTE | 2018-09-18 13:07 | IPN ---
DATE: 09/18/2018 Mr. Dubois is seen this morning on his bedside. He remains somewhat confused but not in any acute distress. Nursing staff reports that he did eat about 50% of his breakfast. The patient denies any nausea, vomiting, dyspnea or chest pain. PHYSICAL EXAMINATION: Temperature 97.3 degrees Fahrenheit, heart rate 72 per minute and respiratory rate 15 per minute. Blood pressure 144/72 mmHg and oxygen saturation 97% on room air. His head is atraumatic. Neck is supple and without JVD or thyroid enlargement. Heart: Sounds are regular and lungs with diminished breath sounds but no wheezing. Abdomen: Soft and nontender. Bowel sounds are normal. Extremities have no cyanosis or clubbing. His right lower extremity is wrapped in a splint and Spencer bandage. Neurologically he is very hard of hearing and somewhat confused but probably close to his baseline mentation. Today's labs show WBC count 10.0, hemoglobin 9.0, hematocrit 27.8. Platelets 167. Sodium 141, potassium 5.1, CO2 23, BUN 48 and creatinine 6.97. PROBLEMS: 1. End-stage renal disease. The patient is going to be dialyzed later this afternoon. His electrolytes are stable. 2. Congestive heart failure. His volume status seems clinically well-compensated. He has chronically elevated BNP level. At this point he is oxygenating very well 97% on room air. We will remove about 1 liter of fluid as tolerated. 2. Anemia at this point his anemia is stable and he will continue to receive Aranesp 100 mcg once a week. 3. Lower extremity fracture. The patient has fracture of tibia and fibula. He has been seen by ortho and not felt to be suitable for surgery. He is going to have a cast placed. At this point he remains on analgesics as needed.
[2018-09-18 16:05] VITALS: BP 149/66
[2018-09-18 22:00] VITALS: BP 114/56
[2018-09-19] MEDS: IPRATROPIUM 0.5MG/ALBUTEROL 2.5MG INH SOL UD 3ML (DUONEB)(J7620) NEB SCH ×7 (04:00→23:45)
[2018-09-19 06:18] LABS: HEMOGLOBIN 9.6 g/dl (13.5-17.5); MEAN CORPUSCULAR HEMOGLOBIN 31.9 pg (27.0-33.0); MEAN CORPUSCULAR VOLUME 99.7 fl (80.0-96.0); PLATELET COUNT, AUTOMATED 155 10^3/uL (150-450); RED BLOOD COUNT 3.01 10^6/uL (4.30-6.10); WHITE BLOOD COUNT 9.5 10^3/uL (4.0-10.0)
[2018-09-19] MEDS: LEVOTHYROXINE 25MCG TABLET (0.025MG) PO SCH (06:29)
[2018-09-19] MEDS: ACETAMINOPHEN 500 MG TAB PO PRN (06:30)
[2018-09-19 06:40] LABS: CALCIUM LEVEL 8.2 MG/DL (8.8-10.2); CREATININE FOR GFR 4.34 MG/DL (0.70-1.30); GLOMERULAR FILTRATION RATE 13.9 (>35); POTASSIUM SERUM 4.6 MEQ/L (3.5-5.1)
[2018-09-19 06:55] LABS: EOSINOPHILS 5 % (0-5); LYMPHOCYTES 7 % (16-52); METAMYELOCYTES 2 % (0-0); MONOCYTES 19 % (0-8); MYELOCYTES 2 % (0-0); NEUTROPHILS 65 % (35-75)
[2018-09-19 06:58] LABS: ANISOCYTOSIS 2+; PLATELET ESTIMATE NORMAL (NORMAL)
[2018-09-19 07:00] LABS: POLYCHROMASIA 1+
[2018-09-19 08:00] VITALS: BP 106/59
[2018-09-19] MEDS: FOLIC ACID 1 MG TAB PO SCH (08:33)
[2018-09-19] MEDS: ASPIRIN 81 MG ENTERIC TAB PO SCH (08:33)
[2018-09-19] MEDS: CARVedilol 12.5 MG TAB PO SCH ×2 (08:34→21:49)
[2018-09-19] MEDS: MEGESTROL SUSP 400 MG/10 ML UDC PO SCH (08:34)
[2018-09-19 14:00] VITALS: BP 128/62
[2018-09-19 22:00] VITALS: BP 129/58
[2018-09-20] MEDS: IPRATROPIUM 0.5MG/ALBUTEROL 2.5MG INH SOL UD 3ML (DUONEB)(J7620) NEB SCH ×5 (03:28→20:13)
[2018-09-20 06:00] VITALS: BP 138/62
[2018-09-20] MEDS: LevoFLOXacin 250 MG TABLET PO SCH (06:32)
[2018-09-20] MEDS: LEVOTHYROXINE 25MCG TABLET (0.025MG) PO SCH (06:32)
[2018-09-20] MEDS: CARVedilol 12.5 MG TAB PO SCH ×2 (06:33→21:14)
[2018-09-20] MEDS: ASPIRIN 81 MG ENTERIC TAB PO SCH (06:34)
[2018-09-20] MEDS: FOLIC ACID 1 MG TAB PO SCH (06:34)
[2018-09-20] MEDS: MEGESTROL SUSP 400 MG/10 ML UDC PO SCH (06:34)
--- NOTE | 2018-09-20 06:37 | IPN ---
DATE: 09/19/2018 Mr. Dubois is seen this morning on his bedside. He is feeling about the same and denies any new complaints. He underwent hemodialysis yesterday, which he tolerated well. He denies any nausea, vomiting, dyspnea or chest pain. Nursing staff reports that he ate only about 45% of his breakfast as he did not like it. PHYSICAL EXAMINATION: Temperature 98 degrees Fahrenheit, heart rate 74 per minute and respiratory rate 18 per minute. Blood pressure 106/60 mmHg and oxygen saturation 97% on room air. His head is atraumatic. Neck is supple and jugular venous distention (JVD) is not abnormally elevated. There is no oral thrush or ulcers. Heart sounds are regular. Lungs sound clear to auscultation. Abdomen is soft and nontender and bowel sounds are normal. Extremities have no cyanosis or clubbing. His right leg is wrapped in splint and blessing wraps. Neurologically he is at his baseline mentation. Today's labs show WBC count 9.5, hemoglobin 9.6 and hematocrit 30. Platelets 155. Sodium 137, potassium 4.6, CO2 32, BUN 25 and creatinine 4.34. PROBLEMS: 1. End-stage renal disease: The patient was dialyzed yesterday and we will plan to dialyze him again tomorrow. The patient also has to go to outpatient orthopedic appointment for fiberglass cast on his leg. We will we will arrange for dialysis in the afternoon so he can keep his appointment with orthopedics. 2. Anemia: His anemia is stable and we will continue with Aranesp 100 mcg once a week. 3. Hypertension: Blood pressure is well-controlled on current antihypertensive meds and no changes are being made today. 4. Right tibia and fibula fracture: The patient has a splint and is scheduled for a fiberglass cast by orthopedics in their office where he is going tomorrow. He is not a surgical candidate due to comorbid conditions.
[2018-09-20 09:35] LABS: HEMATOCRIT 27.8 % (42.0-52.0); HEMOGLOBIN 9.1 g/dl (13.5-17.5); MEAN CORPUSCULAR HEMOGLOBIN 31.3 pg (27.0-33.0); MEAN CORPUSCULAR HGB CONC 32.7 g/dl (32.0-36.5); MEAN CORPUSCULAR VOLUME 95.5 fl (80.0-96.0); PLATELET COUNT, AUTOMATED 167 10^3/uL (150-450); RED BLOOD COUNT 2.91 10^6/uL (4.30-6.10); WHITE BLOOD COUNT 9.7 10^3/uL (4.0-10.0)
[2018-09-20 10:28] LABS: CALCIUM LEVEL 7.8 MG/DL (8.8-10.2); CREATININE FOR GFR 5.89 MG/DL (0.70-1.30); GLOMERULAR FILTRATION RATE 9.8 (>35); PHOSPHORUS LEVEL 2.5 MG/DL (2.5-4.9); POTASSIUM SERUM 5.2 MEQ/L (3.5-5.1)
[2018-09-20 16:25] VITALS: BP 118/57
[2018-09-20] MEDS ORDERED: HEPARIN 1,000 UNITS/ML 10ML VIAL (FOR RADIOLOGY& DIALYSIS ONLY) IV ONE (16:30)
--- NOTE | 2018-09-20 20:04 | IPN ---
DATE: 09/20/2018 Mr. Dubois is seen in dialysis this afternoon. He went for consultation at ortho clinic as an outpatient and has come back. He has a right tibia and fibula fracture for which a fiberglass cast is going to be applied. The patient also has end-stage renal disease and has been dialysis dependent. He is being dialyzed today. He denies any nausea or vomiting. He does have pain in his right leg. PHYSICAL EXAMINATION Temperature 97.8 degrees Fahrenheit, heart rate 70 per minute and respiratory rate 18 per minute. Blood pressure 138/62 mmHg and oxygen saturation 98% on room air. Head: Is atraumatic. Neck is supple and JVD not abnormally elevated. Heart: Sounds are irregular in rhythm. Lungs with slightly diminished breath sounds at bases but generally clear. Abdomen: Soft and nontender. Bowel sounds are normal. Extremities have no cyanosis or clubbing. Right lower extremity is wrapped in a splint and Spencer bandage. Neurologically he seems to be at about his baseline mentation. LABS: Today's labs show WBC count 9.7, hemoglobin 9.1 and hematocrit 27.8. Platelets 167. Sodium 134, potassium 5.2, CO2 27, BUN 42 and creatinine 5.89. Glucose 122 and calcium 7.8. PROBLEMS: 1. End-stage renal disease. The patient is being dialyzed this afternoon and we will continue to receive his dialysis three times a week. 2. Hyperkalemia. This is mild and related to end-stage renal disease and will be corrected with dialysis today. No other intervention is indicated. 3. Hyponatremia. The patient has mild hyponatremia which will be corrected with dialysis today. 4. Anemia. His anemia is mild and stable. We have already started Aranesp 100 mcg once a week and will continue to monitor. 5. Right lower extremity fracture. The patient has tibia and fibula fracture of right leg and is being followed by ortho.
[2018-09-20 22:00] VITALS: BP 119/55
[2018-09-21] MEDS: IPRATROPIUM 0.5MG/ALBUTEROL 2.5MG INH SOL UD 3ML (DUONEB)(J7620) NEB SCH ×7 (00:08→23:11)
[2018-09-21] MEDS: ACETAMINOPHEN 500 MG TAB PO PRN (01:52)
[2018-09-21] MEDS: LEVOTHYROXINE 25MCG TABLET (0.025MG) PO SCH (05:41)
[2018-09-21] MEDS: ASPIRIN 81 MG ENTERIC TAB PO SCH (08:55)
[2018-09-21] MEDS: CARVedilol 12.5 MG TAB PO SCH ×2 (08:55→20:51)
[2018-09-21] MEDS: FOLIC ACID 1 MG TAB PO SCH (08:56)
[2018-09-21] MEDS: MEGESTROL SUSP 400 MG/10 ML UDC PO SCH (08:56)
[2018-09-21 14:00] VITALS: BP 128/62
--- NOTE | 2018-09-21 18:22 | IPN ---
DATE: 09/21/2018 Mr. Dubois is seen this morning on his bedside. He had a fiberglass cast put on his right lower extremity yesterday by orthopedics and he is in good spirits today. He also underwent hemodialysis yesterday afternoon. The patient denies any nausea, vomiting, dyspnea or chest pain. Nursing staff reports that he ate about 75% of his breakfast and did not like oatmeal. PHYSICAL EXAMINATION: Temperature 98.2 degrees Fahrenheit, heart rate 88 per minute and respiratory rate 18 per minute. Blood pressure 127/68 mmHg and oxygen saturation 96% on room air. His head is atraumatic. Neck is supple and without jugular venous distension (JVD) or thyroid enlargement. Heart sounds are irregular and lungs sound clear to auscultation. Abdomen soft and nontender. Bowel sounds are normal. Extremities have no cyanosis or clubbing. Right lower extremity in a cast. The patient did not have any new labs today. PROBLEMS: 1. End-stage renal disease. The patient was dialyzed yesterday and he tolerated his dialysis treatment very well. He will be scheduled for next dialysis tomorrow. 2. congestive heart failure. Volume status is very well compensated and we will continue to manage it with hemodialysis. No changes are being made today. The patient should continue with fluid restriction of 1500 per day. 3. Hyperkalemia. Have mild hyperkalemia yesterday and he underwent hemodialysis and hyperkalemia is likely resolved. We will recheck his labs tomorrow. No changes are needed today. 4. Anemia. His anemia has been stable and he will continue to receive Aranesp 100 mcg once a week. Complete blood count (CBC) should be checked again tomorrow morning. 5. Right lower extremity fracture. The patient had a fiberglass cast put on yesterday and seems to be doing well from a renal standpoint. He is ready for discharge to a rehabilitation facility.
[2018-09-21 22:00] VITALS: BP 126/64
[2018-09-22] MEDS: IPRATROPIUM 0.5MG/ALBUTEROL 2.5MG INH SOL UD 3ML (DUONEB)(J7620) NEB SCH ×6 (04:00→23:29)
[2018-09-22] MEDS: ACETAMINOPHEN 500 MG TAB PO PRN (05:54)
[2018-09-22] MEDS: FOLIC ACID 1 MG TAB PO SCH (05:54)
[2018-09-22] MEDS: LEVOTHYROXINE 25MCG TABLET (0.025MG) PO SCH (05:54)
[2018-09-22] MEDS: ASPIRIN 81 MG ENTERIC TAB PO SCH (05:54)
[2018-09-22] MEDS: CARVedilol 12.5 MG TAB PO SCH ×2 (05:54→21:54)
[2018-09-22] MEDS: LevoFLOXacin 250 MG TABLET PO SCH (05:54)
[2018-09-22] MEDS: MEGESTROL SUSP 400 MG/10 ML UDC PO SCH (05:55)
[2018-09-22 06:00] VITALS: BP 149/69
[2018-09-22 10:08] LABS: HEMATOCRIT 27.7 % (42.0-52.0); HEMOGLOBIN 8.9 g/dl (13.5-17.5); MEAN CORPUSCULAR HEMOGLOBIN 31.7 pg (27.0-33.0); MEAN CORPUSCULAR HGB CONC 32.1 g/dl (32.0-36.5); MEAN CORPUSCULAR VOLUME 98.6 fl (80.0-96.0); PLATELET COUNT, AUTOMATED 201 10^3/uL (150-450); RED BLOOD COUNT 2.81 10^6/uL (4.30-6.10); WHITE BLOOD COUNT 8.8 10^3/uL (4.0-10.0)
[2018-09-22 10:22] LABS: CALCIUM LEVEL 8.1 MG/DL (8.8-10.2); CREATININE FOR GFR 5.14 MG/DL (0.70-1.30); GLOMERULAR FILTRATION RATE 11.4 (>35); PHOSPHORUS LEVEL 3.5 MG/DL (2.5-4.9); POTASSIUM SERUM 5.9 MEQ/L (3.5-5.1)
[2018-09-22] MEDS ORDERED: HEPARIN 1,000 UNITS/ML 10ML VIAL (FOR RADIOLOGY& DIALYSIS ONLY) IV ONE (13:00)
[2018-09-22 14:00] VITALS: BP 105/52
--- NOTE | 2018-09-22 14:25 | IPN ---
DATE OF VISIT: 09/22/2018 Mr. Dubois is seen this morning during hemodialysis. He is resting comfortably, but does get confused at times. He has a cast on his right lower extremity due to tibia and fibula fracture. The patient has no dyspnea, chest pain, nausea, vomiting, fever or chills. On physical examination, temperature 98 degrees Fahrenheit, heart rate 80 per minute and respiratory rate 20 per minute. Blood pressure 149/69 mmHg and oxygen saturation 96% on room air. Head is atraumatic. Neck is supple and jugular venous distention (JVD) is mildly elevated. There is no oral thrush or ulcers. Heart sounds are irregular in rhythm and lungs with slightly diminished breath sounds at bases. Abdomen: Soft and nontender. Bowel sounds are normal. Extremities have no cyanosis or clubbing. Right lower extremity in fiberglass cast due to fracture. His left arm AV fistula is functioning and being used for dialysis. Today's labs show WBC count 8.8, hemoglobin 8.9 and hematocrit 27.7. Platelets 201. Sodium 133, potassium 5.9, CO2 29, BUN 41 and creatinine 5.14. Calcium 8.1 and phosphorus 3.5. PROBLEMS: 1. End-stage renal disease. The patient is currently being dialyzed and we will continue his dialysis three times a week. He is tolerating dialysis very well. 2. Hypertension. Blood pressure is reasonably well-controlled on current medications and no changes are being made today. 3. Anemia. The patient will continue with Aranesp 100 mcg once a week. 4. Urinary tract infection (UTI). He is currently on levofloxacin 250 mg every 48 hours. 5. Hyperkalemia, probably related to end-stage renal disease and he may have a hematoma due to fracture which is now absorbing high amount of potassium. He will be dialyzed today which is likely to correct his hyperkalemia. Electrolytes should be checked again tomorrow.
[2018-09-22 22:00] VITALS: BP 119/57
[2018-09-23] MEDS: IPRATROPIUM 0.5MG/ALBUTEROL 2.5MG INH SOL UD 3ML (DUONEB)(J7620) NEB SCH ×6 (04:00→23:38)
[2018-09-23 06:00] VITALS: BP 134/91
[2018-09-23] MEDS: LEVOTHYROXINE 25MCG TABLET (0.025MG) PO SCH (06:42)
[2018-09-23] MEDS: MEGESTROL SUSP 400 MG/10 ML UDC PO SCH (09:05)
[2018-09-23] MEDS: FOLIC ACID 1 MG TAB PO SCH (09:06)
[2018-09-23] MEDS: ASPIRIN 81 MG ENTERIC TAB PO SCH (09:06)
[2018-09-23] MEDS: CARVedilol 12.5 MG TAB PO SCH ×2 (09:06→21:45)
[2018-09-23 14:00] VITALS: BP 117/58
[2018-09-24] MEDS: IPRATROPIUM 0.5MG/ALBUTEROL 2.5MG INH SOL UD 3ML (DUONEB)(J7620) NEB SCH ×6 (03:42→23:13)
[2018-09-24 06:00] VITALS: BP 149/71
[2018-09-24] MEDS: LEVOTHYROXINE 25MCG TABLET (0.025MG) PO SCH (06:14)
[2018-09-24 06:43] LABS: ALBUMIN 2.2 GM/DL (3.2-5.2); CALCIUM LEVEL 8.5 MG/DL (8.8-10.2); CREATININE FOR GFR 4.93 MG/DL (0.70-1.30); PHOSPHORUS LEVEL 3.1 MG/DL (2.5-4.9); POTASSIUM SERUM 5.3 MEQ/L (3.5-5.1)
[2018-09-24] MEDS: CARVedilol 12.5 MG TAB PO SCH ×2 (10:17→20:08)
[2018-09-24] MEDS: FOLIC ACID 1 MG TAB PO SCH (10:17)
[2018-09-24] MEDS: MEGESTROL SUSP 400 MG/10 ML UDC PO SCH (10:17)
[2018-09-24] MEDS: ASPIRIN 81 MG ENTERIC TAB PO SCH (10:17)
--- NOTE | 2018-09-24 11:19 | IPN ---
DATE: 09/23/2018 SUBJECTIVE: The patient was seen and examined at the bedside. He is awake and alert. He was dialyzed yesterday. He tolerated the hemodialysis procedure well. 500 mL of fluid was removed. He denies any active complaints. He wants to know when his Plaster of Roxy from the right leg will be removed. OBJECTIVE: VITAL SIGNS: Temperature is 97.2 degrees Fahrenheit, blood pressure 134/91, pulse is 71, respiratory rate of 17, saturating 96% in room air. Intake and output: Urine output recorded as 200 mL. Ultra filtration with hemodialyzes was 500 mL yesterday. Weight on the bed scale is not available. PHYSICAL EXAMINATION: GENERAL: Patient is awake, alert, oriented times two laying in bed in no apparent distress. HEAD/NECK: Extraocular muscles intact. Pupils equal, round, and reactive to light. Mucous membranes are moist. Neck is supple. There is no jugular venous distention (JVD). CARDIOVASCULAR: S1, S2, irregular heart rate. No murmur, rub or gallop. RESPIRATORY: Chest is clear to auscultation bilaterally. Bilaterally good air entry. No rales or rhonchi. ABDOMEN: Soft. Positive bowel sounds. Nontender. MUSCULOSKELETAL: He has a Plaster of Roxy in the right leg from foot up to mid thigh. CONFLICT RESOLUTION PROFESSIONAL: No focal deficit. Power is 5/5 in bilateral upper extremities. He is oriented times two. LAB REVIEW: CBC showed a WBC 8.8, hemoglobin was 8.9 yesterday. There is no BMP available from today. CURRENT INPATIENT MEDICATIONS: Patient's medications are all reviewed by me. I have stopped his Levaquin at this point. ASSESSMENT/PLAN: 1. End-stage renal disease: Patient is being dialyzed according to Tuesday, Tuesday, Tuesday schedule. Volume status is optimized. Next hemodialysis will be done on 09/25/2018. 2. Urinary tract infection: Patient was on Levaquin. He has received 9 days of antibiotic. I am stopping the antibiotic at this time as cultures are negative. 3. Anemia secondary to end-stage renal disease: He is currently on Aranesp with hemodialysis. Continue current dose. 4. Hyperkalemia: Patient was dialyzed yesterday. Potassium level is expected to improve. I will check his renal profile tomorrow morning.
[2018-09-25] MEDS: IPRATROPIUM 0.5MG/ALBUTEROL 2.5MG INH SOL UD 3ML (DUONEB)(J7620) NEB SCH ×6 (04:00→23:58)
[2018-09-25] MEDS: FOLIC ACID 1 MG TAB PO SCH (05:47)
[2018-09-25] MEDS: LEVOTHYROXINE 25MCG TABLET (0.025MG) PO SCH (05:47)
[2018-09-25] MEDS: ASPIRIN 81 MG ENTERIC TAB PO SCH (05:48)
[2018-09-25] MEDS: CARVedilol 12.5 MG TAB PO SCH ×2 (05:48→20:31)
[2018-09-25 06:00] VITALS: BP 145/85
[2018-09-25] MEDS: MEGESTROL SUSP 400 MG/10 ML UDC PO SCH (09:24)
[2018-09-25] MEDS ORDERED: HEPARIN 1,000 UNITS/ML 10ML VIAL (FOR RADIOLOGY& DIALYSIS ONLY) IV ONE (11:00)
--- NOTE | 2018-09-25 11:25 | IPN ---
DATE: 09/25/2018 Nikko is seen [facility]. He expresses no chest pain or shortness of breath, and feels well. PHYSICAL EXAMINATION: 145/85, vital signs stable. General appearance: Elderly, frail. Resting comfortably. He is conversant. Lungs clear Heart regular rhythm. 1/6 systolic ejection murmur. Abdomen soft, nontender. No masses. No peripheral edema. IMPRESSION: 1. End stage renal disease (ESRD). Dialysis per nephrology. 2. Altered mental status. Apparently he is back at his baseline. 3. Fracture right tib-fib. Went to orthopedics a few days ago for casting. 4. Hypothyroidism. Stable on current dose of levothyroxine. 5. Chronic indwelling Posadas catheter. Was on Levaquin earlier in his hospitalization. Follow-up urine culture was negative and this was discontinued. Dr. Kiah Jules will be assuming his care tomorrow.
[2018-09-25 13:45] LABS: BASO % 0.2 % (0.0-1.0); EOS # 0.5 10^3/uL (0.0-0.50); HEMATOCRIT 27.3 % (42.0-52.0); HEMOGLOBIN 8.9 g/dl (13.5-17.5); LYMPH # 0.6 10^3/uL (1.5-4.5); LYMPH % 5.5 % (24.0-44.0); MEAN CORPUSCULAR HEMOGLOBIN 30.6 pg (27.0-33.0); MEAN CORPUSCULAR HGB CONC 32.6 g/dl (32.0-36.5); MEAN CORPUSCULAR VOLUME 93.8 fl (80.0-96.0); NEUTROPHILS # 7.3 10^3/uL (1.8-7.7); NEUTROPHILS % 68.3 % (36.0-66.0); PLATELET COUNT, AUTOMATED 233 10^3/uL (150-450); RED BLOOD COUNT 2.91 10^6/uL (4.30-6.10); WHITE BLOOD COUNT 10.7 10^3/uL (4.0-10.0)
[2018-09-25 14:11] LABS: ALBUMIN 2.2 GM/DL (3.2-5.2); CALCIUM LEVEL 8.3 MG/DL (8.8-10.2); CREATININE FOR GFR 6.26 MG/DL (0.70-1.30); GLOMERULAR FILTRATION RATE 9.1 (>35); PHOSPHORUS LEVEL 3.8 MG/DL (2.5-4.9); POTASSIUM SERUM 6.4 MEQ/L (3.5-5.1)
[2018-09-25 14:21] LABS: MONO % 18.8 % (0.0-5.0)
[2018-09-26] MEDS: IPRATROPIUM 0.5MG/ALBUTEROL 2.5MG INH SOL UD 3ML (DUONEB)(J7620) NEB SCH ×5 (04:00→20:48)
[2018-09-26 06:00] VITALS: BP 133/81
[2018-09-26] MEDS: LEVOTHYROXINE 25MCG TABLET (0.025MG) PO SCH (06:41)
--- NOTE | 2018-09-26 08:07 | IPN ---
DATE: 09/25/2018 SUBJECTIVE: Patient was seen and examined at the bedside today morning. Patient is afebrile, hemodynamically stable. His mental status is close to his baseline. Today is the patient's regular day of dialysis. OBJECTIVE: VITAL SIGNS: Temperature is 97.9 degrees Fahrenheit, blood pressure 145/80, pulse is 92, respiratory rate of 22, saturating 91% on room air. INTAKE AND OUTPUT: Urine output recorded as 250 mL. Weight on the bed scale is not available. PHYSICAL EXAMINATION: GENERAL: Patient is awake, alert, oriented times two laying in bed in no apparent distress. HEAD/NECK: Extraocular muscles intact. Pupils equally round and reactive to light. Neck is supple. There is no jugular venous distention (JVD). CARDIOVASCULAR: S1, S2, irregular rate. No edema of the bilateral lower extremities. RESPIRATORY: Chest is clear to auscultation bilaterally. Bilaterally good air entry. No rales or rhonchi. ABDOMEN: Soft. Positive bowel sounds. Nontender. MUSCULOSKELETAL: The patient has a cast on the right leg from the foot al the way up to the mid thigh. GEOTHERMAL OPERATIONS ENGINEER: No focal deficit. He is oriented times two. Power is 5/5 in bilateral upper extremities. LAB REVIEW: CBC showed a WBC 10.7, hemoglobin 8.9, platelets are 233. BMP showed sodium 129, potassium is 6.4, chloride 94, bicarb 26, BUN 55, creatinine is 6.2, phosphorous 3.8. CURRENT INPATIENT MEDICATIONS: The patient's medications were all reviewed by me. There is no change in the medications today as compared with yesterday. ASSESSMENT/PLAN: 1. End-stage renal disease on hemodialysis. The patient's regular dialysis days are Tuesday, Tuesday, and Tuesday. He will be dialyzed today according to his regular schedule. Ultrafiltration goal will be 1 liter as tolerated by his blood pressure. 2. Hyperkalemia. The patient will be dialyzed with a 2K bath for initial 2 hours and then 1K bath for the last hour. Potassium level is expected to improve after hemodialysis. 3. Anemia secondary to end-stage renal disease. Hemoglobin is 8.9, which is suboptimal. The patient is currently on Aranesp 100 mcg with hemodialysis. Dose will be increased if hemoglobin stays below 9. 4. Fracture of the right tibia and fibula. The patient has a cast on the right leg. The rest of the management is as per orthopedic surgery's recommendations.
[2018-09-26 09:40] LABS: HEMATOCRIT 28.2 % (42.0-52.0); MEAN CORPUSCULAR HGB CONC 31.9 g/dl (32.0-36.5); MEAN CORPUSCULAR VOLUME 97.2 fl (80.0-96.0); PLATELET COUNT, AUTOMATED 212 10^3/uL (150-450); WHITE BLOOD COUNT 8.9 10^3/uL (4.0-10.0)
[2018-09-26] MEDS: FOLIC ACID 1 MG TAB PO SCH (09:50)
[2018-09-26] MEDS: ASPIRIN 81 MG ENTERIC TAB PO SCH (09:50)
[2018-09-26] MEDS: MEGESTROL SUSP 400 MG/10 ML UDC PO SCH (09:50)
[2018-09-26] MEDS: CARVedilol 12.5 MG TAB PO SCH ×2 (09:53→20:46)
[2018-09-26 10:02] LABS: CALCIUM LEVEL 8.4 MG/DL (8.8-10.2); CREATININE FOR GFR 4.13 MG/DL (0.70-1.30); GLOMERULAR FILTRATION RATE 14.7 (>35); POTASSIUM SERUM 4.8 MEQ/L (3.5-5.1)
[2018-09-26] MEDS: ACETAMINOPHEN 500 MG TAB PO PRN (10:32)
[2018-09-27 00:40] VITALS: BP 154/80
[2018-09-27] MEDS: IPRATROPIUM 0.5MG/ALBUTEROL 2.5MG INH SOL UD 3ML (DUONEB)(J7620) NEB SCH ×7 (00:57→23:19)
[2018-09-27] MEDS: FOLIC ACID 1 MG TAB PO SCH (05:57)
[2018-09-27] MEDS: LEVOTHYROXINE 25MCG TABLET (0.025MG) PO SCH (05:57)
[2018-09-27] MEDS: MEGESTROL SUSP 400 MG/10 ML UDC PO SCH (05:57)
[2018-09-27] MEDS: ASPIRIN 81 MG ENTERIC TAB PO SCH (05:57)
[2018-09-27 06:00] VITALS: BP 210/92
[2018-09-27] MEDS: CARVedilol 12.5 MG TAB PO SCH ×2 (06:04→21:15)
[2018-09-27 07:03] LABS: HEMATOCRIT 29.7 % (42.0-52.0); HEMOGLOBIN 9.6 g/dl (13.5-17.5); MEAN CORPUSCULAR HEMOGLOBIN 30.8 pg (27.0-33.0); MEAN CORPUSCULAR HGB CONC 32.3 g/dl (32.0-36.5); MEAN CORPUSCULAR VOLUME 95.2 fl (80.0-96.0); PLATELET COUNT, AUTOMATED 246 10^3/uL (150-450); RED BLOOD COUNT 3.12 10^6/uL (4.30-6.10); WHITE BLOOD COUNT 11.5 10^3/uL (4.0-10.0)
[2018-09-27 07:43] LABS: ALBUMIN 2.4 GM/DL (3.2-5.2); CALCIUM LEVEL 8.6 MG/DL (8.8-10.2); CREATININE FOR GFR 5.37 MG/DL (0.70-1.30); GLOMERULAR FILTRATION RATE 10.9 (>35); PHOSPHORUS LEVEL 5.1 MG/DL (2.5-4.9); POTASSIUM SERUM 5.8 MEQ/L (3.5-5.1)
[2018-09-27 10:30] VITALS: BP 146/69
[2018-09-27] MEDS ORDERED: HEPARIN 1,000 UNITS/ML 10ML VIAL (FOR RADIOLOGY& DIALYSIS ONLY) IV ONE (12:15)
--- NOTE | 2018-09-27 12:36 | REP ---
PORTABLE CHEST: AP portable view of the chest is performed and compared to a prior study of 09/14/2018. There are new bilateral pleural effusions left greater than the right with adjacent bibasilar atelectasis/infiltrate. Cardiac silhouette is prominent. There is calcification of the thoracic aorta. No other acute changes are seen. Electronically Signed by Yoshi Chan MD 09/27/2018 01:33 P
[2018-09-28] MEDS: IPRATROPIUM 0.5MG/ALBUTEROL 2.5MG INH SOL UD 3ML (DUONEB)(J7620) NEB SCH ×3 (04:00→12:23)
[2018-09-28] MEDS: LEVOTHYROXINE 25MCG TABLET (0.025MG) PO SCH (05:02)
[2018-09-28 06:00] VITALS: BP 148/56
[2018-09-28 07:58] VITALS: BP 148/56
[2018-09-28] MEDS: ASPIRIN 81 MG ENTERIC TAB PO SCH (07:58)
[2018-09-28] MEDS: CARVedilol 12.5 MG TAB PO SCH (07:58)
[2018-09-28] MEDS: FOLIC ACID 1 MG TAB PO SCH (07:59)
[2018-09-28] MEDS: MEGESTROL SUSP 400 MG/10 ML UDC PO SCH (08:01)
--- NOTE | 2018-09-28 09:47 | IPN ---
DATE OF SERVICE: 09/27/2018 SUBJECTIVE: Patient was seen and examined at the bedside today morning during hemodialysis procedure. Patient had elevated blood pressures today morning so he was dialyzed early in the morning. He was still slightly confused and obtunded. However, he was tolerating the hemodialysis procedure well. He had mild amount of respiratory distress. OBJECTIVE: VITAL SIGNS: Temperature is 97 degrees Fahrenheit, blood pressure on arrival was 220/80, pulse 89, respiratory rate of 22, saturating 92% on nasal cannula at 2 liters. INTAKE AND OUTPUT: Urine output recorded as only 100 mL. Weight on the bed scale is not available. PHYSICAL EXAMINATION: The patient is awake, alert, oriented times one only, laying in bed getting hemodialysis done. HEAD/NECK EXAM: Extraocular muscles intact. Pupils equally round and reactive to light. Mucous membranes are dry. He is wearing nasal cannula. CARDIOVASCULAR: S1 and S2, irregular rate. No edema of the bilateral lower extremities. RESPIRATORY: Decreased breath sounds at the bases, especially on the right side. Poor inspiratory effort. ABDOMEN: Soft. Positive bowel sounds. Nontender. MUSCULOSKELETAL: He has a cast on the right leg from the foot all the way up to the mid thigh. TUMBLING MACHINE OPERATOR: The patient is obtunded and confused and oriented times one, but otherwise he moves bilateral upper extremities. LAB REVIEW: CBC showed a WBC 11.5, hemoglobin 9.6 and platelets are 246. BMP showed sodium 132, potassium 5.8, chloride 96, bicarb 29, BUN 41, creatinine 5.3, calcium 8.6, phosphorous 5.1, albumin 2.4. IMAGING: Chest x-ray was done today morning for shortness of breath. He has new bilateral pleural effusions, left greater than right, with adjacent bibasilar atelectasis. CURRENT INPATIENT MEDICATIONS: The patient's medications were all reviewed by me. There is no change in the medications today as compared with yesterday. ASSESSMENT/PLAN: 1. End-stage renal disease on hemodialysis. The patient's regular dialysis days are Tuesday, Tuesday, and Tuesday. He is being dialyzed today according to his regular schedule. Ultrafiltration goal will be at least 2 liters as tolerated by his blood pressure. 2. Bilateral pleural effusion. The patient has a moderate amount of left sided pleural effusion. I will try to do further fluid removal. If the fluid removal does not help with the pleural effusion, then I will get his left sided pleural effusion tapped under ultrasound guidance. 3. Hyperkalemia. The patient was dialyzed with a 2K bath initially and in the last one hour he was dialyzed with 1K. Potassium level is expected to improve with that. 4. Anemia and end-stage renal disease. Hemoglobin is 9.6, which is improving. He is on Aranesp 100 mcg IV with hemodialysis. 5. Fracture of the right tibia and fibula. The patient has a cast on the right leg. He is pending placement at this time.
--- NOTE | 2018-09-29 07:33 | IPN ---
DATE OF SERVICE: 09/28/2018 SUBJECTIVE: Patient was seen and examined at the bedside today morning. Patient is awake. He is following a few commands and trying to communicate. He was dialyzed yesterday. He tolerated the hemodialysis procedure well. He is otherwise hemodynamically stable. Chest x-ray done yesterday was noted. He has left sided moderate pleural effusion. OBJECTIVE: Vital signs: Temperature 96.9 degrees Fahrenheit, blood pressure 148/56, pulse is 84, respiratory rate of 20, saturating 93% on 2 liters via nasal cannula. Intake and output: Ultrafiltration done with hemodialysis was 1.7 liter. Weight on the bed scale is 64.9 kg. PHYSICAL EXAMINATION: General: Patient is awake, alert, oriented times one, lying in bed, no apparent distress. Head and neck exam: Extraocular muscles intact. Pupils equally round and reactive to light. Mucous membranes are moist. Neck is supple, there is no jugular venous distention (JVD). Cardiovascular: S1, S2. Irregular rate. No edema of the bilateral lower extremities. Respiratory: Decreased breath sounds at the bases. Abdomen is soft, positive bowel sounds. Nontender. Musculoskeletal: He has a cast on the right leg from foot all the way up to the midthigh. Central nervous system: Patient is able to answer a few questions. He follows bilateral upper extremities. LAB REVIEW: CBC showed WBC 11.5, hemoglobin is 9.6, platelets are 246. BMP from yesterday 130. CBC is also from yesterday. CURRENT INPATIENT MEDICATIONS: Patient's medications were all reviewed by me. There is no change in the medications today as compared with yesterday. ASSESSMENT AND PLAN: 1. End stage renal disease on hemodialysis. Patient's regular dialysis days are Tuesday, Tuesday, Tuesday. He has burnisher and bumper chair as outpatient tomorrow. He will be dialyzed as outpatient. I have discussed with dialysis center to try to challenge patient's dry weight and change his dry weight to a lower weight so we can get rid of the pleural effusion. 2. Bilateral pleural effusions secondary to fluid overload. Patient does not tolerate much ultrafiltration. I have started him on midodrine 5 mg by mouth Tuesday, Tuesday, Tuesday to be taken during hemodialysis so we can get rid of more fluid during hemodialysis. Fluid and dry weight management has already been discussed with the dialysis staff. 3. Hyperkalemia. Patient was dialyzed with a 2K bath initially and 1K bath later on. Potassium level is expected to improve. 4. Anemia secondary to end stage renal disease. Rest of the anemia management will be done as outpatient as per protocol. 5. Fracture of the right tibia and fibula. Patient has a cast right now. He is going to the [facility]. DISPOSITION: It is okay to discharge the patient from nephrology standpoint. Plan of care was discussed with the dialysis staff and with the primary team hospitalist, Dr. Scar Brady.
[2018-09-29] MEDS ORDERED: MIDODRINE 5 MG TAB PO SCH (09:00)
--- NOTE | 2018-09-29 21:23 | DSES ---
DATE OF ADMISSION: 09/13/2018 DATE OF DISCHARGE: 09/28/2018 DISCHARGE DIAGNOSIS: Nondisplaced proximal tibia fracture. SECONDARY DIAGNOSES: 1. End-stage renal disease, on hemodialysis. 2. Decompensated congestive heart failure. 3. Metabolic encephalopathy. 4. Hypothyroidism. 5. Chronic urinary retention. 6. Urinary tract infection. Patient was admitted on 09/13/2018 from dialysis unit for confusion shortly after the onset of his dialysis. He had recent falls at rehabilitation participating, and he was found to have a right nondisplaced fracture of the tibia-fibula. Orthopedic surgery did see him and recommended nonoperative intervention. During his stay he was also seen by nephrology service for his end-stage renal disease, on hemodialysis Tuesday, Tuesday, Tuesday. He was known to have anemia of end-stage renal disease and was continued on his Aranesp. At this time, the patient is stable and is accepted to [facility] for rehabilitation. The patient today is feeling well. Has no complaints. The patient was treated for urinary tract infection. He completed a course of antibiotics during his stay. OBJECTIVE: VITAL SIGNS: Temperature 96.9, pulse 84, respiratory rate 20, blood pressure (BP) 148/56, oxygen saturation 93% on room air. GENERAL: He is a very frail, elderly man, sleeping peacefully as I enter the room, but easily arousable to verbal stimuli. He is very hard of hearing. He is in no distress. HEENT: He has moist mucous membranes. No elevation central venous pressure (CVP). CARDIOVASCULAR: S1, S2, regular. RESPIRATORY: Clear today. No accessory muscle use. ABDOMEN: Benign. EXTREMITIES: No clubbing, cyanosis, or edema. LABORATORY STUDIES: No new laboratory studies today. Microbiology: Urine culture and blood cultures were negative. IMAGING: He had extensive imaging regarding his fractures and chest x-ray, which there was a point where he was fluid overloaded and did have some dyspnea, which did resolve with hemodialysis. He had a non-displaced right tibia-fibular fracture. ASSESSMENT AND PLAN: This is an 87-year-old man with end-stage renal disease who presented with change in mentation in a right tibia-fibular fracture. 1. Right tibia-fibular fracture, status post casting by orthopedic surgery, followup in the office. He likely has some element of dementia, which is exacerbated by his acute fracture. At this time, he is at his baseline mentation. 2. Hypothyroidism. He is continued on levothyroxine. 3. Urinary retention and chronic catheter. He was treated for urinary tract infection during his stay. When culture returned negative, this was discontinued. 4. Anemia of end-stage renal disease. He was continued on epoetin. 5. Hypotension related to dialysis. He is to be on midodrine 5 mg Tuesday, Tuesday, Tuesday prior to hemodialysis. 6. Protein calorie malnutrition. He is on Megace. 7. Hypertension. The patient is on Coreg. 8. Congestive heart failure. He was fluid overloaded and did become dyspneic at one point during his stay, which did resolve with fluid removal and hemodialysis. DISPOSITION: At this time he is medically stable for discharge to [facility] for continued rehabilitation. He is to followup with his primary care physician (PCP) within 7 days, followup with Dr. Matthew within 2 weeks, followup with nephrology for the regularly-scheduled hemodialysis. He is to be nonweightbearing on the right. His diet is renal. He is to return to the ER if symptoms worsen. DISCHARGE MEDICATIONS: - Tylenol 1 gram every 6 hours as needed for pain - DuoNeb every 6 hours as needed for shortness of breath - aspirin 81 mg daily - brimonidine tartrate 0.2% twice a day - carvedilol 25 mg twice a day if blood pressure (BP) is over 140 - vitamin D3 at 50,000 units every 2 weeks on the and th of the month - folic acid 1 mg daily - ICaps one capsule daily - Synthroid 25 mcg daily - loperamide 2 mg as needed for diarrhea - Megestrol 5 mL by mouth daily, 40 mg/mL suspension - midodrine 5 mg three times a week, Tuesday, Tuesday, Tuesday, before hemodialysis - Veltassa 8.4 grams by mouth - Mandie-Musa one tablet every evening - Renvela 1600 mg with meals MTDD
== END 2018-09-28 14:39 | DRG 562 ==
LOC: M ED 14:18 → M ED INP 20:19 → M PCU 22:09 → M MSPAV 09-15 15:15
PROVIDERS: ADMIT General Practice; ATTEND Internal Medicine
PROC: 30233N1 Transfusion of Nonautologous Red Blood Cells into Peripheral Vein, Percutaneous Approach (ICD-10-PCS; principal; 2018-09-15)
PROC: 5A1D70Z Performance of Urinary Filtration, Intermittent, Less than 6 Hours Per Day (ICD-10-PCS; 2018-09-27)
DX: S82.831A Other fracture of upper and lower end of right fibula, initial encounter for closed fracture (principal); N18.6 End stage renal disease; G93.41 Metabolic encephalopathy; N39.0 Urinary tract infection, site not specified; E46 Unspecified protein-calorie malnutrition; I13.2 Hypertensive heart and chronic kidney disease with heart failure and with stage 5 chronic kidney disease, or end stage renal disease; I50.32 Chronic diastolic (congestive) heart failure; E87.1 Hypo-osmolality and hyponatremia; S82.101A Unspecified fracture of upper end of right tibia, initial encounter for closed fracture; R41.82 Altered mental status, unspecified; E03.9 Hypothyroidism, unspecified; R33.9 Retention of urine, unspecified; D63.1 Anemia in chronic kidney disease; I95.9 Hypotension, unspecified; Z79.899 Other long term (current) drug therapy; J44.9 Chronic obstructive pulmonary disease, unspecified; H40.9 Unspecified glaucoma; Z88.2 Allergy status to sulfonamides; Z88.8 Allergy status to other drugs, medicaments and biological substances; Z86.73 Personal history of transient ischemic attack (TIA), and cerebral infarction without residual deficits; F03.90 Unspecified dementia, unspecified severity, without behavioral disturbance, psychotic disturbance, mood disturbance, and anxiety; E83.39 Other disorders of phosphorus metabolism; Z79.82 Long term (current) use of aspirin; Z99.2 Dependence on renal dialysis; E87.5 Hyperkalemia; W18.30XA Fall on same level, unspecified, initial encounter; Y92.009 Unspecified place in unspecified non-institutional (private) residence as the place of occurrence of the external cause

== ENCOUNTER → 2018-10-02 | Outpatient (REF) ==
[~2018-10-02] MED LIST changes: +VELT1POW PO
--- NOTE | 2018-10-02 15:26 | REP ---
Portable chest, 02:03 p.m., single AP view, the patient upright: Comparison is 09/27/2018. There is a persisting left pleural effusion that has increased in size. There is a tiny right pleural effusion that has significantly decreased in size. There is a small linear density peripherally in the right lung compatible with discoid atelectasis versus parenchymal scar. Lung jones otherwise clear. Cardiac size is upper normal for portable positioning. Impression: The left pleural effusion has increased. The right pleural effusion has decreased. Electronically Signed by Yoshi Beasley MD 10/02/2018 03:17 P
== END ==
LOC: SKLAB7 13:51
PROVIDERS: ATTEND Internal Medicine
DX: J44.9 Chronic obstructive pulmonary disease, unspecified (principal)

== ENCOUNTER 2018-10-16 07:38 | Inpatient (IN) | payer MEDICARE, MEDICAID ==
[~2018-10-16] VITALS: Ht 167.6 cm; Wt 60.3 kg
[2018-10-16] MEDS ORDERED: methylPREDNISolone INJ 125 MG/2 ML VIAL (J2930) IV ONE (08:00)
[2018-10-16] MEDS ORDERED: ALBUTEROL SULFATE 2.5 MG/0.5 ML INH NEB SOLN INH ONE (08:00)
[2018-10-16] MEDS ORDERED: IPRATROPIUM 0.5MG/ALBUTEROL 2.5MG INH SOL UD 3ML (DUONEB)(J7620) NEB ONE (08:00)
[2018-10-16 08:10] LABS: BASO % 0.3 % (0.0-1.0); EOS % 8.9 % (0.0-3.0); HEMATOCRIT 24.7 % (42.0-52.0); HEMOGLOBIN 7.5 g/dl (13.5-17.5); LYMPH # 0.8 10^3/uL (1.5-4.5); LYMPH % 7.1 % (24.0-44.0); MEAN CORPUSCULAR HEMOGLOBIN 29.5 pg (27.0-33.0); MEAN CORPUSCULAR HGB CONC 30.4 g/dl (32.0-36.5); MEAN CORPUSCULAR VOLUME 97.2 fl (80.0-96.0); MONO # 1.3 10^3/uL (0.0-0.8); MONO % 11.1 % (0.0-5.0); NEUTROPHILS # 7.9 10^3/uL (1.8-7.7); NEUTROPHILS % 68.2 % (36.0-66.0); PLATELET COUNT, AUTOMATED 164 10^3/uL (150-450); RED BLOOD COUNT 2.54 10^6/uL (4.30-6.10); WHITE BLOOD COUNT 11.5 10^3/uL (4.0-10.0)
[2018-10-16 08:23] LABS: INR 1.09; PROTHROMBIN TIME 14.2 SECONDS (12.1-14.4)
[2018-10-16] MEDS ORDERED: ISOVUE-370 76% 100ML VIAL (Q9967) As Ordered ONE (08:24)
[2018-10-16 08:25] LABS: PARTIAL THROMBOPLASTIN TIME 89.7 SECONDS (25.4-37.6)
--- NOTE | 2018-10-16 08:27 | REP ---
Clinical: Chest pain. Comparison: 10/02/2018. Findings: Left lower lobe consolidation and moderate to large pleural effusion again identified and similar to prior examination. Underlying diffuse chronic interstitial changes are appreciated. Right hemithorax is relatively clear. No pneumothorax. Mediastinum and cardiac silhouette are incompletely evaluated due to overlying opacities. Skeletal structures demonstrate osteopenia and degenerative change. Impression: [id number] left pleural effusion and consolidation similar to prior examination. Electronically Signed by Adonis Aleman MD 10/16/2018 08:18 A
[2018-10-16 08:40] LABS: ALBUMIN 2.4 GM/DL (3.2-5.2); BILIRUBIN,DIRECT 0.1 MG/DL (0.0-0.2); BILIRUBIN,TOTAL 0.3 MG/DL (0.2-1.0); CALCIUM LEVEL 8.2 MG/DL (8.8-10.2); CREATININE FOR GFR 5.19 MG/DL (0.70-1.30); FREE T4 1.06 NG/DL (0.76-1.46); GLOMERULAR FILTRATION RATE 11.3 (>35); MB/CK RELATIVE INDEX 7.5 (< OR =4); POTASSIUM SERUM 3.5 MEQ/L (3.5-5.1); THYROID STIMULATING HORMONE 1.8 uIU/ML (0.358-3.740); TOTAL PROTEIN 5.8 GM/DL (6.4-8.2); TROPONIN I 0.1 NG/ML (< 0.10)
--- NOTE | 2018-10-16 09:32 | REP ---
Clinical: Chest pain and shortness of breath. Rule out pulmonary embolus. Technique: Axial contrast enhanced images from the thoracic inlet to the upper abdomen using angiographic technique for pulmonary embolus. 75 ml Isovue 370 intravenous contrast material administered without complication. Findings: Satisfactory enhancement of the pulmonary vasculature is achieved and no filling defects are identified to suggest pulmonary embolus. Extensive atherosclerotic changes to the thoracic aorta and coronary arteries noted. No aortic aneurysm or dissection appreciated. No cardiomegaly or pericardial effusion identified. Moderate left pleural effusion with associated left lower lobe and lingular atelectasis is appreciated along with small right pleural effusion and right basilar atelectasis. Subtle areas of alveolar infiltrate in the bilateral upper lobes and to a lesser extent the infrahilar lower lobes suggest the possibility of acute pneumonia. Underlying emphysematous changes are identified. No significant adenopathy. Osseous structures demonstrate degenerative changes. Limited upper abdomen demonstrates complete atrophic appearance of the bilateral kidneys along with normal bilateral adrenal glands. A 1.7 cm cystic lesion identified in the tail of the pancreas along with smaller subcentimeter cystic changes along the pancreatic duct and sub centimeter hepatic cyst in the lateral segment left lobe are identified. These findings are similar to chest CT dated 06/12/2018, but represent a relatively new finding as compared to contrast enhanced CT of the abdomen dated 06/30/2010. Impression: 1. No pulmonary embolus. 2. Moderate left pleural effusion, small right pleural effusion, associated elements of atelectasis (left greater than right) and possible multifocal pneumonia as described above. 3. Cystic changes within the pancreas similar to 2018 but represent new findings as compared to 2009. Consider follow-up MRI of the abdomen for further investigation. Electronically Signed by Adonis Aleman MD 10/16/2018 09:24 A
--- NOTE | 2018-10-16 09:40 | REP ---
Clinical: Abdominal pain with bloody tarry stools A Technique: Axial contrast enhanced images from the lung bases to the pubic symphysis using 75 ml Isovue 370 intravenous contrast material with coronal and sagittal re-formations. Comparison: 2009. Findings: Lung bases demonstrate moderate left pleural effusion with associated lower lobe and lingular atelectasis as well as trace right pleural effusion and right basilar atelectasis. Sub centimeter benign appearing cyst in the lateral segment left lobe of the liver. Spleen, gallbladder, and bilateral adrenal glands are normal. Complete atrophic appearance of the bilateral kidneys noted. Pancreas includes 1.7 cm cyst at the tail along with few subcentimeter intraparenchymal cysts which represent a new finding as compared to 2010. Evaluation of the enteric system demonstrates diffuse colonic diverticulosis without acute diverticulitis. No bowel obstruction or obvious acute inflammatory process noted. Normal terminal ileum and cecum identified in the right lower quadrant. Evaluation of the pelvis is severely limited due to beam-hardening artifact from left hip prosthesis, and the sigmoid colon cannot be evaluated. Posadas catheter identified in collapsed bladder. Prior prostate surgery suggested. No ascites. No free air. No adenopathy. Atherosclerotic changes to the aorta and vasculature without aneurysm or dissection. Impression: 1. Lung bases demonstrate pleural effusions with atelectasis (left greater than right). 2. Subcentimeter benign appearing left hepatic cyst. 3. Cystic changes to the pancreas as noted above. Consider follow-up MRI of the abdomen for more definitive evaluation. 4. Diffuse colonic diverticulosis without obvious obstruction or inflammatory process. However, sigmoid is incompletely evaluated due to extensive beam hardening artifact from left hip prosthesis. Colonoscopy may be warranted for further investigation. Electronically Signed by Adonis Aleman MD 10/16/2018 09:32 A
[2018-10-16] MEDS ORDERED: ALBU83IN INH (10:24)
[2018-10-16] MEDS ORDERED: ENEM1ENE4 PR (10:24)
[2018-10-16] MEDS ORDERED: NEPR1LIQ2 PO (10:24)
[2018-10-16] MEDS ORDERED: MILK120011 PO (10:24)
[2018-10-16] MEDS ORDERED: IPRA0.00 INH (10:24)
[2018-10-16] MEDS ORDERED: SEVE0.8P PO ×2 (10:24)
[2018-10-16] MEDS ORDERED: DULC10SU2 PR (10:24)
[2018-10-16] MEDS ORDERED: FURO40TA2 PO (10:24)
[2018-10-16] MEDS ORDERED: TUBE5INJ ID (10:24)
[2018-10-16] MEDS ORDERED: CARV25TA PO (10:24)
[2018-10-16] MEDS ORDERED: ACETAMINOPHEN TAB 650MG DOSE (2X325MG) PO PRN (10:30)
[2018-10-16] MEDS ORDERED: IPRATROPIUM 0.5MG/ALBUTEROL 2.5MG INH SOL UD 3ML (DUONEB)(J7620) NEB PRN (10:30)
[2018-10-16] MEDS ORDERED: ONDANSETRON 4MG/2ML VIAL (J2405) IV PRN (10:30)
[2018-10-16] MEDS: (RENVELA) SEVELAMER **CARBONate** 800 MG TAB PO SCH ×2 (12:30→17:14)
[2018-10-16 15:30] VITALS: BP 142/62
--- NOTE | 2018-10-16 15:47 | HPEPDOC ---
General Date of Admission Oct 16, 2018 at 10:29 Chief Complaint The patient is a 87-year-old male admitted with a reason for visit of Gi Bleed. History of Present Illness 87-year-old male with past medical history of end-stage renal disease on hemodialysis, hypothyroidism, glaucoma, dementia, chronic obstructive pulmonary disease, chronic urinary retention, and recent hospitalization for nondisplaced proximal tibia/fibula fracture which was treated conservatively presented to the ER after he was found to have a syncopal episode during dialysis. Subsequent blood pressure check revealed that the patient was hypotensive. Of note, the patient usually takes Midodrine for similar episodes in the past on dialysis day s. He was sent to the ER for further evaluation. He denied any complaints of fevers, chills, chest pain, palpitations, abdominal pain, or any nausea/vomiting/diarrhea in the ER. In the ER, the patient was also noted to have a large melanotic bowel movement. His hemoglobin was noted to be 7.5, when his baseline is closer to 9.5. He remained hemodynamically stable otherwise. He will be transfused 1 unit of packed red blood cells, and admitted to the hospitalist service for further evaluation and management. Home Medications Scheduled (Icaps) 1 Cap Cap, 1 CAP PO DAILY, (Reported) (Mandie-Musa) 1 Tab Tab, 1 TAB PO QPM, (Reported) (Tubersol) 5 Unit/0.1 Ml Inj, 5 UNIT ID ASDIRECTED, (Reported) DUE TO RECEIVE 10/16/18 (Nepro with Carbsteady) 1 Liq Liq, 240 ML PO DAILY, (Reported) TAKES AT 1400 Albuterol/Ipratropium (Ipratropium [place]/Albut 0.5-2.5 (3) mg/3Ml) 1 Marcos Marcos, 1 MARCOS INH BID, (Reported) Aspirin (Aspirin EC) 81 Mg Tab, 81 MG PO DAILY, (Reported) Brimonidine Tartrate (Brimonidine Tartrate) 0.2 % Marcos, 1 DROP OU BID, (Reported) Carvedilol (Carvedilol) 25 Mg Tab, 25 MG PO BID, (Reported) Cholecalciferol (Vitamin D3) 50,000 Unit Cap, 50,000 UNIT PO Q2WK, (Reported) TAKES ON THE AND OF THE MONTH Folic Acid (Folic Acid) 1 Mg Tab, 1 MG PO DAILY, (Reported) Furosemide (Furosemide) 40 Mg Tab, 40 MG PO DAILY, (Reported) Levothyroxine Sodium (Synthroid) 25 Mcg Tab, 25 MCG PO QAM, (Reported) Midodrine HCl (Midodrine HCl) 5 Mg Tab, 5 MG PO 3XW, (Reported) MON, WED, TUE Patiromer Sorbitex Calcium (Veltassa) 8.4 Gm Pow, 8.4 GM PO QWEEK, (Reported) SUNDAYS Sevelamer Carbonate (Sevelamer Carbonate) 0.8 Gm Pow, 1.6 GM PO QPM, (Reported) Sevelamer Carbonate (Sevelamer Carbonate) 0.8 Gm Pow, 0.8 GM PO BID, (Reported) BREAKFAST AND LUNCH Travoprost (Travatan Z) 50 Drop/2.5 Ml Soln, 1 DROP OU QHS, (Reported) Scheduled PRN (Enema) 1 Camilo Camilo, 1 CAMILO MT DAILY PRN for CONSTIPATION, (Reported) Acetaminophen (Tylenol Extra Strength) 500 Mg Tab, 1,000 MG PO Q8H PRN for PAIN, (Reported) Albuterol Sulfate (Albuterol Sulfate) 2.5 Mg/3 Ml Nebu, 2.5 MG INH Q6H PRN for SHORTNESS OF BREATH, (Reported) Bisacodyl (Dulcolax) 10 Mg Sup, 10 MG MT DAILY PRN for CONSTIPATION, (Reported) Milk Of Magnesia (Milk of Magnesia) 1,200 Mg/15 Ml Ashley, 30 ML PO DAILY PRN for CONSTIPATION, (Reported) Allergies Coded Allergies: Ciprofloxacin (Verified Adverse Reaction, Mild, metabolic encephalopathy, 09/13/18) Sulfamethoxazole w/Trimethoprim (Unverified Adverse Reaction, Mild, METABOLIC ENCEPHALOPATHY, 09/13/18) Past Medical History Medical History As noted above. Social History * Smoker: Denies Alcohol: Denies Review of Systems Other systems 10 point review of systems negative unless otherwise specified in HPI. Physical Examination General Exam: Positive: Alert, Cooperative, No Acute Distress ENT Exam: Positive: Atraumatic, Mucous membr. moist/pink Neck Exam: Negative: JVD Chest Exam: Positive: Rales (fine bibasilar crackles noted on auscultation bilaterally), Diminished Heart Exam: Positive: Rate Normal, Normal S1, Normal S2 Abdomen Exam: Positive: Soft; Negative: Tenderness Extremity Exam: Positive: Other (right lower extremity noted to be in a surgical cast) Vital Signs Vital Signs Date Time Temp Pulse Resp B/P (MAP) Pulse Ox O2 Delivery O2 Flow Rate FiO2 10/16/18 15:13 98.4 78 20 156/69 (98) 92 Nasal Cannula 2.0 Laboratory Data Labs 24H Laboratory Tests 2 10/16/18 07:59: Immature Granulocyte % (Auto) 4.4H, White Blood Count 11.5H, Red Blood Count 2.54L, Hemoglobin 7.5L, Hematocrit 24.7L, Mean Corpuscular Volume 97.2H, Mean Corpuscular Hemoglobin 29.5, Mean Corpuscular Hemoglobin Concent 30.4L, Red Cell Distribution Width 17.4H, Platelet Count 164, Neutrophils (%) (Auto) 68.2H, Lymphocytes (%) (Auto) 7.1L, Monocytes (%) (Auto) 11.1H, Eosinophils (%) (Auto) 8.9H, Basophils (%) (Auto) 0.3, Neutrophils # (Auto) 7.9H, Lymphocytes # (Auto) 0.8L, Monocytes # (Auto) 1.3H, Eosinophils # (Auto) 1.0H, Basophils # (Auto) 0.0, Nucleated Red Blood Cells % (auto) 0.0, Prothrombin Time 14.2, Prothromb Time International Ratio 1.09, Activated Partial Thromboplast Time 89.7H, Anion Gap 7L, Glomerular Filtration Rate 11.3L, Calcium Level 8.2L, Aspartate Amino Transf (AST/SGOT) 14, Alanine Aminotransferase (ALT/SGPT) 11L, Alkaline Phosphatase 157H, Total Bilirubin 0.3, Direct Bilirubin 0.1, Total Creatine Kinase 24L, Creatine Kinase MB 2.0, Creatine Kinase MB Relative Index 7.50H, Troponin I 0.10, Total Protein 5.8L, Albumin 2.4L, Albumin/Globulin Ratio 0.71L, Lipase 106, Thyroid Stimulating Hormone (TSH) 1.800, Free Thyroxine 1.06 CBC/BMP Laboratory Tests 10/16/18 07:59 Red Blood Count 2.54 L, Mean Corpuscular Volume 97.2 H, Mean Corpuscular Hemoglobin 29.5, Mean Corpuscular Hemoglobin Concent 30.4 L, Red Cell Distribution Width 17.4 H, Neutrophils (%) (Auto) 68.2 H, Lymphocytes (%) (Auto) 7.1 L, Monocytes (%) (Auto) 11.1 H, Eosinophils (%) (Auto) 8.9 H, Basophils (%) (Auto) 0.3, Neutrophils # (Auto) 7.9 H, Lymphocytes # (Auto) 0.8 L, Monocytes # (Auto) 1.3 H, Eosinophils # (Auto) 1.0 H, Basophils # (Auto) 0.0 Microbiology Microbiology 10/16/18 Blood Culture, Received Pending 10/16/18 Blood Culture, Received Pending 10/16/18 Gastrointestinal Tract Panel (PCR) - Final, Complete Clostridium Difficile A/B Plan / VTE VTE Prophylaxis Ordered?: Yes Plan Plan Melanotic GI Bleed, possibly 2/2 Right Sided Diverticular Bleed, AVM Hgb noted to be 7.5 (Baseline ~9.5) We will transfuse the patient Discussed case with Dr. Valladares of GI--we will keep the patient on a clear liquid diet, and he will be seen by GI for possible EGD and Colonoscopy hold ASA We will cont to serially monitor H&H Patient hemodynamically stable at this time Syncopal Episode possibly 2/2 Transient Hypotension from Dialysis We will monitor on Telemetry ESRD on HD (M, W, F) Nephrology consulted CT Abd/Pel notable for Cystic Changes at the Tail of the Pancrease MRI Abd ordered for Follow up B/L Pleural Effusions on CT Chest 2D ECHO with EF of 60-65%, with probable normal diastolic function noted from 12/2016--repeat 2D ECHO ordered Patient w/o any respiratory distress, and currently comfortably breathing 93% on room air in the ER Volume optimization via Dialysis as per Nephro Hx of Hypotension Hemodynamically stable in the ER Cont Midodrine Hypothyroidism Cont Levothyroxine COPD, stable Albuterol prn Hx of Recent Right Tib/Fib Fracture Treated non-operatively as per Ortho F/U as outpatient DVT Prophylaxis (Not a candidate for AC 2/2 GI Bleed, and not a Candidate for SCDs 2/2 Cast on Right Leg from recent fracture) Code Status: DNR/DNI I did discuss the patient's current clinical condition, and confirmed DNR/DNI status with the patient's daughter Lianne Carlson via telephone ([phone]) this morning on admission. All questions were answered to her satisfaction. GERMANIA CHACON MD Oct 16, 2018 15:47
[2018-10-16] MEDS: FOLIC ACID 1 MG TAB PO SCH (16:54)
[2018-10-16 18:54] LABS: HEMATOCRIT 25.8 % (42.0-52.0)
[2018-10-16] MEDS ORDERED: SLF 3 ML SYR IV PRN (19:00)
[2018-10-16 20:00] VITALS: BP 160/58
--- NOTE | 2018-10-16 20:20 | CR.PDOC ---
General Date of Consultation: Oct 16, 2018 Referring Provider: GERMANIA CHACON MD Attending Physician: ARIK GUPTA MD Consultation Primary physician/ hospitalist: Dr. Chacon Reason for consult: GI bleeding HPI: 87-year-old male with past medical history of end-stage renal disease on hemo dialysis, hypothyroidism, glaucoma, dementia, chronic obstructive pulmonary disease, chronic urinary retention, and recent hospitalization for nondisplaced proximal tibia/fibula fracture which was treated conservatively presented to the ER after he was found to have a syncopal episode during dialysis. Subsequent blood pressure check revealed that the patient was hypotensive. Of note, the patient usually takes Midodrine for similar episodes in the past on dialysis days. He was sent to the ER for further evaluation. Patient is unable to engage in conversation, but he does say that he is not in pain and not having any more bowel movements. Patient family not at bedside at this time. Pertinent negative GI symptoms: Patient denies nausea, vomiting, diarrhea, abdominal pain, loss of appetite, early satiety or unintentional weight loss. Review of Systems: GI: as stated above CVS: No chest pain, No palpitations, No leg swelling. 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 Skin: No rash : No hematuria, No burning sensation of the urine ENT: No ear discharge/ pain, No dysphagia. Eyes: No photophobia. Home medications: reviewed. Antithrombotic agents - None Medical h/o: As above. Surgical h/o: None on abdomen. Social h/o: Alcohol- Denied , tobacco- Denies , IVDA/ drugs- Denies . Family h/o of GI cancers - Non- contributory Prior Endoscopies: --- EGD - in [address] Barriga for melena/ Gi bleeding -- Normal except hiatal hernia. --- Colonoscopy - Noted 4 polyps, all removed. Prior GI evaluation: None in [facility]. Exam: Vitals: reviewed General: Alert and oriented x 1, not in distress HEENT: NO pallor, no icterus. Normal oropharynx, NO cervical lymph nodes. Chest: symmetric with bilateral clear air entry, CVS: S1, S2 heard, normal, no murmurs . Abdomen: non-distended, no surgical scars, soft, non-tender, no palpable masses, normal bowel sounds heard. Rectal exam: Patient refused . Extremities: no pedal edema, pulses palpable. FIBERGLASS LUGGAGE MOLDER: no focal motor or sensory deficits. Moves all extremities Skin: no rash. Labs: reviewed. Impression: - Gi bleeding with dark stools, with prior similar episodes -- DDx-- Upper GI bleeding with AVMs vs PUD vs Right colonic AVM bleeding vs less likely Diverticular bleeding. Recommendations: - Patient educated about the test results, possible differential diagnoses and All questions answered. - Monitor H/H and transfuse as needed. - Give IV PPi for now - Avoid NSAIDs. - Patient is on dialysis, so need to coordinate the Endoscopy procedures with Dialysis sessions. - Patient is unable to give consent due to mental status. Will review with family when available. Addendum: 10/17/2018 Discussed the above assessment and plan with patient's next of kin health care proxy - Daughter Ms. Lianne Carlson. Discussed the procedures patient will require, including EGD and Colonoscopy with bowel prep ( as patient cannot drink golytely might need OG tube and then give golytely through that), the procedure indications, risks, alternatives. She verbalized understanding but As patient did not have any more melenotic stools ( last bowel movement is yesterday), had dialysis on tuesday and hemoglobin being stable and due to procedure risks, it was decided to continue to monitor the clinical status and manage conservatively. If there is ongoing overt active Gi bleeding will plan for urgent EGD and Colonoscopy but at this time there is no overt active GI bleeding. Plan of care discussed with patient's daughter ( HCP) and primary team. Patient's health care proxy/ daughter verbalized understanding and agreed with the plan. Laboratory Data Labs 24H Laboratory Tests 2 10/16/18 07:59: Immature Granulocyte % (Auto) 4.4H, White Blood Count 11.5H, Red Blood Count 2.54L, Hemoglobin 7.5L, Hematocrit 24.7L, Mean Corpuscular Volume 97.2H, Mean Corpuscular Hemoglobin 29.5, Mean Corpuscular Hemoglobin Concent 30.4L, Red Cell Distribution Width 17.4H, Platelet Count 164, Neutrophils (%) (Auto) 68.2H, Lymphocytes (%) (Auto) 7.1L, Monocytes (%) (Auto) 11.1H, Eosinophils (%) (Auto) 8.9H, Basophils (%) (Auto) 0.3, Neutrophils # (Auto) 7.9H, Lymphocytes # (Auto) 0.8L, Monocytes # (Auto) 1.3H, Eosinophils # (Auto) 1.0H, Basophils # (Auto) 0.0, Nucleated Red Blood Cells % (auto) 0.0, Prothrombin Time 14.2, Prothromb Time International Ratio 1.09, Activated Partial Thromboplast Time 89.7H, Anion Gap 7L, Glomerular Filtration Rate 11.3L, Calcium Level 8.2L, Aspartate Amino Transf (AST/SGOT) 14, Alanine Aminotransferase (ALT/SGPT) 11L, Alkaline Phosphatase 157H, Total Bilirubin 0.3, Direct Bilirubin 0.1, Total Creatine Kinase 24L, Creatine Kinase MB 2.0, Creatine Kinase MB Relative Index 7.50H, Troponin I 0.10, Total Protein 5.8L, Albumin 2.4L, Albumin/Globulin Ratio 0.71L, Lipase 106, Thyroid Stimulating Hormone (TSH) 1.800, Free Thyroxine 1.06 10/16/18 15:52: Lactic Acid Level 1.4, Lactate Dehydrogenase 218 CBC/BMP Laboratory Tests 10/16/18 07:59 Red Blood Count 2.54 L, Mean Corpuscular Volume 97.2 H, Mean Corpuscular Hemoglobin 29.5, Mean Corpuscular Hemoglobin Concent 30.4 L, Red Cell Distribution Width 17.4 H, Neutrophils (%) (Auto) 68.2 H, Lymphocytes (%) (Auto) 7.1 L, Monocytes (%) (Auto) 11.1 H, Eosinophils (%) (Auto) 8.9 H, Basophils (%) (Auto) 0.3, Neutrophils # (Auto) 7.9 H, Lymphocytes # (Auto) 0.8 L, Monocytes # (Auto) 1.3 H, Eosinophils # (Auto) 1.0 H, Basophils # (Auto) 0.0 10/16/18 18:45 Microbiology Microbiology 10/16/18 Blood Culture, Received Pending 10/16/18 Blood Culture, Received Pending 10/16/18 Gastrointestinal Tract Panel (PCR) - Final, Complete Clostridium Difficile A/B Allergies Coded Allergies: Ciprofloxacin (Verified Adverse Reaction, Mild, metabolic encephalopathy, 09/13/18) Sulfamethoxazole w/Trimethoprim (Unverified Adverse Reaction, Mild, METABOLIC ENCEPHALOPATHY, 09/13/18) Home Medications Scheduled (Icaps) 1 Cap Cap, 1 CAP PO DAILY, (Reported) (Mandie-Musa) 1 Tab Tab, 1 TAB PO QPM, (Reported) (Tubersol) 5 Unit/0.1 Ml Inj, 5 UNIT ID ASDIRECTED, (Reported) DUE TO RECEIVE 10/16/18 (Nepro with Carbsteady) 1 Liq Liq, 240 ML PO DAILY, (Reported) TAKES AT 1400 Albuterol/Ipratropium (Ipratropium [place]/Albut 0.5-2.5 (3) mg/3Ml) 1 Bel Bel, 1 BEL INH BID, (Reported) Aspirin (Aspirin EC) 81 Mg Tab, 81 MG PO DAILY, (Reported) Brimonidine Tartrate (Brimonidine Tartrate) 0.2 % Bel, 1 DROP OU BID, (Reported) Carvedilol (Carvedilol) 25 Mg Tab, 25 MG PO BID, (Reported) Cholecalciferol (Vitamin D3) 50,000 Unit Cap, 50,000 UNIT PO Q2WK, (Reported) TAKES ON THE AND OF THE MONTH Folic Acid (Folic Acid) 1 Mg Tab, 1 MG PO DAILY, (Reported) Furosemide (Furosemide) 40 Mg Tab, 40 MG PO DAILY, (Reported) Levothyroxine Sodium (Synthroid) 25 Mcg Tab, 25 MCG PO QAM, (Reported) Midodrine HCl (Midodrine HCl) 5 Mg Tab, 5 MG PO 3XW, (Reported) TUE, TUE, TUE Patiromer Sorbitex Calcium (Veltassa) 8.4 Gm Pow, 8.4 GM PO QWEEK, (Reported) SUNDAYS Sevelamer Carbonate (Sevelamer Carbonate) 0.8 Gm Pow, 1.6 GM PO QPM, (Reported) Sevelamer Carbonate (Sevelamer Carbonate) 0.8 Gm Pow, 0.8 GM PO BID, (Reported) BREAKFAST AND LUNCH Travoprost (Travatan Z) 50 Drop/2.5 Ml Soln, 1 DROP OU QHS, (Reported) Scheduled PRN (Enema) 1 Camilo Camilo, 1 CAMILO [place] DAILY PRN for CONSTIPATION, (Reported) Acetaminophen (Tylenol Extra Strength) 500 Mg Tab, 1,000 MG PO Q8H PRN for PAIN, (Reported) Albuterol Sulfate (Albuterol Sulfate) 2.5 Mg/3 Ml Nebu, 2.5 MG INH Q6H PRN for SHORTNESS OF BREATH, (Reported) Bisacodyl (Dulcolax) 10 Mg Sup, 10 MG ME DAILY PRN for CONSTIPATION, (Reported) Milk Of Magnesia (Milk of Magnesia) 1,200 Mg/15 Ml Ashley, 30 ML PO DAILY PRN for CONSTIPATION, (Reported) ARIK GUPTA MD Oct 16, 2018 20:20
[2018-10-16] MEDS ORDERED: PANTOPRAZOLE 40MG INJ (PROTONIX) (C9113) IV ONE (21:00)
[2018-10-16] MEDS: SLF 3 ML SYR IV SCH (22:00)
[2018-10-16 23:59] VITALS: BP 155/70
[2018-10-17] VITALS (11 sets, daily range): BP systolic 142–164; BP diastolic 50–76
[2018-10-17 00:08] LABS: HEMATOCRIT 23.1 % (42.0-52.0); HEMOGLOBIN 7.4 g/dl (13.5-17.5)
[2018-10-17] MEDS: LEVOTHYROXINE 25MCG TABLET (0.025MG) PO SCH (05:33)
[2018-10-17] MEDS: SLF 3 ML SYR IV SCH ×3 (05:33→22:00)
[2018-10-17] MEDS: PANTOPRAZOLE 40MG INJ (PROTONIX) (C9113) IV SCH ×2 (05:33→17:03)
[2018-10-17 05:38] LABS: HEMOGLOBIN 8.4 g/dl (13.5-17.5); MEAN CORPUSCULAR HEMOGLOBIN 28.2 pg (27.0-33.0); MEAN CORPUSCULAR HGB CONC 32.3 g/dl (32.0-36.5); MEAN CORPUSCULAR VOLUME 87.2 fl (80.0-96.0); PLATELET COUNT, AUTOMATED 160 10^3/uL (150-450); RED BLOOD COUNT 2.98 10^6/uL (4.30-6.10)
[2018-10-17 06:02] LABS: CALCIUM LEVEL 8.4 MG/DL (8.8-10.2); CREATININE FOR GFR 6.28 MG/DL (0.70-1.30); GLOMERULAR FILTRATION RATE 9.1 (>35); MAGNESIUM LEVEL 2.1 MG/DL (1.8-2.4)
[2018-10-17] MEDS: (RENVELA) SEVELAMER **CARBONate** 800 MG TAB PO SCH ×3 (07:31→17:03)
[2018-10-17] MEDS: FOLIC ACID 1 MG TAB PO SCH (08:04)
[2018-10-17 08:18] LABS: C REACTIVE PROTEIN QUANTITATIV 3.55 MG/DL (0.00-0.30)
--- NOTE | 2018-10-17 08:23 | CR ---
DATE OF CONSULTATION: 10/16/2018 REQUESTING PHYSICIAN: Dr. Humble Carter CONSULTING PHYSICIAN: Dr. Bird REASON FOR CONSULTATION: Management of end-stage renal disease on hemodialysis. CHIEF COMPLAINT: Patient was sent from the dialysis center for hypotension, altered mental status. HISTORY OF PRESENT ILLNESS: Mr. Nikko Dubois is an 87-year-old male with a past medical history of end-stage renal disease on hemodialysis every Tuesday, Tuesday, Tuesday. History of recurrent urinary tract infections, chronic indwelling Posadas catheter, recent fall with right tibia and fibula fracture, currently having a cast on the right leg. Multiple other comorbidities as mentioned below. Patient went for hemodialysis as an outpatient and over there he was found to be unresponsive with very low blood pressures, blood pressure was systolic in the 70's, however he was started on hemodialysis, no fluid removal was done. Approximately 1 hour into the hemodialysis patient was unresponsive with very low blood pressures. He needed normal saline bolus of 400 mL. Hemodialysis was stopped and EMS was called and patient was sent to the emergency room for further evaluation. Patient was found to he hypotensive in the emergency room and he also started having melanotic stools. He was found to be anemic. He was started on packed red blood transfusion. He was admitted under the hospitalist service. GI consult was also called for a possible GI bleed. Nephrology service has been called for further help in the management of end-stage renal disease on hemodialysis. I saw and evaluated the patient today morning at the bedside in the emergency room. He is still confused. His daughter was also present at the bedside. Patient was getting a blood transfusion when I saw him. He was unable to provide any history to me. PAST MEDICAL HISTORY: End-stage renal disease on hemodialysis every Tuesday, Tuesday and Tuesday. Recurrent urinary tract infections. Recent right tibia and fibula fracture, hypothyroidism, dementia, COPD. PAST SURGICAL HISTORY: Status-post left forearm AV fistula placement, status-post left femoral hemiarthroplasty, EGD and colonoscopy in the past, bilateral cataract surgery and testicle removal. ALLERGIES: Patient is allergic to ciprofloxacin and Bactrim. FAMILY HISTORY: No significant family history of end-stage renal disease requiring hemodialysis. SOCIAL HISTORY: No history of smoking or illicit drug abuse. REVIEW OF SYSTEMS: Patient was unable to provide any reliability of systems. He was unable to communicate with me. PHYSICAL EXAMINATION: GENERAL: Patient is laying in bed, confused and obtunded. Eyes are closed. OBJECTIVE: VITAL SIGNS: Temperature 97.9 degrees Fahrenheit, blood pressure 142/62, pulse 79, respiratory rate 18, saturating 95% on nasal cannula at 2 liters. HEAD AND NECK EXAM: Pupils are equally round and reactive to light mucous membranes are moist. NECK: Supple and there is no JVD. CARDIOVASCULAR: S1, S2 regular rate. No edema in the bilateral lower extremities. He has a grade 3/6 sytolic murmur. RESPIRATORY: Mildly decreased breath sounds at the bases, otherwise no active rales or rhonchi. ABDOMEN: Soft, positive bowel sounds, nontender and no organomegaly. : He has an indwelling Posadas catheter. Urine in the bag is clear. MUSCULOSKELETAL: No clubbing or cyanosis. Pulses are 2+. LICENSING WORKER: Patient is confused and obtunded. Does not follow commands, very drowsy. LAB REVIEW: CBC showed a WBC 11.5, hemoglobin 7.5, platelets 164, INR 1.09, BMP showed a sodium 139, potassium 3.5, chloride 99, bicarbonate 33, BUN 37, creatinine 5.1, lactic acid is 1.4, albumin 2.4. MICROBIOLOGY: GI panel showed clostridium difficile. IMAGING: CT angiogram of the chest showed no pulmonary embolism. Moderate left sided pleural effusion and small right sided effusion. Cystic changes in the pancreas. CT scan of the abdomen and pelvis with IV contrast was done and it showed cystic changes at the pancreas, diffuse chronic diverticulosis. CURRENT INPATIENT MEDICATIONS: Patient's medications include albuterol as needed, DuoNeb as needed, folic acid 1 mg by mouth daily, levothyroxine 25 mg daily, Solu-Medrol 125 mg IV times one dose, midodrine 5 mg by mouth Tuesday, Tuesday, and Tuesday. Zofran as needed , Protonix 40 mg IV every 12 hours, Renvela 800 mg by mouth with meals. ASSESSMENT: 87-year-old male with history of end-stage renal disease on hemodialysis, every Tuesday, Tuesday and Tuesday. Recent right tibia and fibula fracture, hypothyroidism and dementia admitted this time with GI bleed, episode of hypertension and unresponsiveness during hemodialysis. PLAN: 1. End-stage renal disease on hemodialysis. Patient's regular dialysis days are Tuesday, Tuesday and Tuesday. However because of hypotension and GI bleed. He only got 1 hour of dialysis today. No urgent need of dialysis again. He will be dialyzed tomorrow morning. 2. Acute GI bleed. Patient is being transfused 1 unit of packed red blood cells. Continue to monitor CBC. Continue IV Protonix. The rest of the management is as per GI recommendations. 3. Hypothyroidism. Continue current dose of levothyroxine. 4. Chronic hypotension. Continue current dose of Midodrine Tuesday, Tuesday and Tuesday before hemodialysis. 5. Chronic kidney disease, mineral bone disease. Patient should get Renvela only when he is taking meals if patient is kept nothing by mouth he does not need to take Renvela. 6. History of right tibia and fibula fracture. Patient has a plaster cast. CT angio of the chest was done to rule out PE which was negative. The rest of the management is as per orthopedic surgery as outpatient. Thank you for involving me in the care of this patient. I should be happy to follow the patient along with you tomorrow morning.
[2018-10-17 08:47] LABS: ERYTHROCYTE SEDIMENTATION RATE 54 mm/hr (0-30)
[2018-10-17] MEDS ORDERED: DARBEPOETIN 100 MCG/0.5 ML *DIALYSIS* SYRINGE (J0882) IV SCH (10:00)
[2018-10-17] MEDS: LACTOBACILLUS ACIDOPHILUS CAP (BACID) PO SCH (17:03)
--- NOTE | 2018-10-17 18:45 | IPN ---
DATE: 10/17/2018 SUBJECTIVE: Patient is seen and examined in the room today. According to the staff, the patient, and the patient's family, patient's last bloody bowel movement occurred approximately midnight yesterday. Still is liquidy in appearance. Denied any fevers or chills. No events reported. OBJECTIVE: VITAL SIGNS: Temperature is 97.9, pulse 82, respirations 17, blood pressure 164/70, pulse oximetry 96% with 2 liters nasal cannula. GENERAL: No sign of acute distress. Patient alert and awake. HEENT: Normocephalic, atraumatic. Extraocular muscles intact grossly intact. CARDIOVASCULAR: Positive S1, S2. Diminished breath sounds. Positive fine crackles. ABDOMEN: Soft and nontender. EXTREMITIES: Right lower extremity has a cast. No significant lower extremity edema appreciated. LABORATORY DATA: WBC is 7, hemoglobin 8.4, hematocrit 26, platelet count is 160. Sodium is 136, potassium 4, chloride 97, carbon dioxide 29, BUN 54, creatinine 6.29, GFR 9.1, fasting glucose 99, calcium 8.4, magnesium 2.1, C-reactive protein 3.55. ASSESSMENT AND PLAN: 1. Acute blood loss anemia secondary to gastrointestinal (GI) bleed. Patient did have a history of diverticulosis and arteriovenous malformation. In hospital record, patient had a colonoscopy done in June 2010. Patient was found to have internal hemorrhoids, diverticulosis in entire colon. Upper endoscopy was also performed on the same day. Results are reviewed. Currently will continue to trend hemoglobin and hematocrit. GI specialist consulted. 2. End-stage renal disease, on hemodialysis. In the outpatient setting patient's dialysis days are Tuesday, Tuesday, Tuesday. Patient's most recent dialysis was on 10/17/2018. Nephrology consulted. Appreciate nephrology's assistance. 3. Pancreatic cyst, initially noted on the CT abdomen and pelvis. Repeat MRI abdomen and pelvis. Preliminary report reviewed. 4. Bilateral pleural effusion. Echocardiogram was performed in December 2016, demonstrating patient had a normal ejection fraction (EF) at that time and probable normal diastolic function. Patient is on dialysis. Currently will continue to monitor patient's respiratory status. 5. History of hypotension. Patient on midodrine. 6. Hypothyroidism, on Synthroid. 7. Chronic obstructive pulmonary disease (COPD) exacerbation. Continue to monitor. 8. History of right tibia-fibula fracture. Cast in place. Continue outpatient followup. 9. Deep vein thrombosis (DVT) prophylaxis. Currently patient has acute GI bleed. Not a candidate for compression due to the right lower extremity fracture. [facility]
--- NOTE | 2018-10-17 20:25 | ECHO ---
DATE OF PROCEDURE: 10/17/2018 REFERRING PHYSICIAN: Dr. Humble Carter INDICATION: Edema Height 168 cm, weight 61 kg. DIMENSIONS: IVS: 1.3 LV: 3.8 LVPW: 1.3 LA: 3.7 Aorta: 3.1 IVC: 1.1 Mitral E wave velocity: 153 A wave: 182 E prime septal: 5.8 E prime lateral: 7.6 FINDINGS: The study is of fair and technically difficult quality. Left ventricle is of normal size and has hyperdynamic LV systolic function with estimated left ventricular ejection fraction (LVEF) 65-70%. Due to limited visualization, I cannot rule out subtle wall motion abnormalities. Right ventricle does not appear grossly enlarged, is normally contractile. Both atria appear normal but were not well seen. Aortic valve is tricuspid. It is calcified, and there is some restriction of mobility, by 2D imaging I do not assume more than mild aortic stenosis. There are also degenerative abnormalities of mitral valve with very prominent mitral annular calcifications. Tricuspid valve appears normal. Pulmonic valve was not well seen. Trivial pericardial effusion is noted. Left pleural effusion is seen. Inferior vena cava is of relatively small caliber and appropriately collapses with respiration, indicative of normal or low central venous pressure. Aortic root is normal. Aortic arch and abdominal aorta were not well seen. Doppler interrogation of aortic valve reveals minimal stenosis (mean gradient 13 mmHg) and no insufficiency. There is no mitral insufficiency and trace tricuspid insufficiency. Calculated pulmonary artery pressure was in 30s. Mitral inflow pattern and tissue Doppler imaging of mitral annulus revealed grade 1 diastolic dysfunction. CONCLUSIONS: 1. Study is of acceptable technical quality. 2. Normal left ventricular (LV) size with hyperdynamic LV systolic function, grade 1 diastolic dysfunction, mild left ventricular hypertrophy (LVH). 3. Aortic sclerosis resulting in mild stenosis and no insufficiency. 4. Degenerative abnormalities of mitral valve but no significant stenosis or insufficiency. 5. Normal central venous pressure. 6. Likely mild pulmonary hypertension. 7. Trivial pericardial effusion. 8. Left pleural effusion. COMMENT: Subacute bacterial endocarditis (SBE) prophylaxis is not recommended. It is unlikely that the patient's edema is due to congestive heart failure based on results of the study. [facility]
[2018-10-18] VITALS (10 sets, daily range): BP systolic 156–200; BP diastolic 58–78
[2018-10-18] MEDS: ALBUTEROL SULFATE 2.5 MG/0.5 ML INH NEB SOLN INH PRN ×2 (00:49→21:24)
[2018-10-18 05:56] LABS: HEMATOCRIT 26.3 % (42.0-52.0); HEMOGLOBIN 8.4 g/dl (13.5-17.5); MEAN CORPUSCULAR HEMOGLOBIN 29.6 pg (27.0-33.0); MEAN CORPUSCULAR HGB CONC 31.9 g/dl (32.0-36.5); MEAN CORPUSCULAR VOLUME 92.6 fl (80.0-96.0); PLATELET COUNT, AUTOMATED 178 10^3/uL (150-450); RED BLOOD COUNT 2.84 10^6/uL (4.30-6.10); WHITE BLOOD COUNT 13.8 10^3/uL (4.0-10.0)
[2018-10-18] MEDS: SLF 3 ML SYR IV SCH ×3 (06:00→22:00)
--- NOTE | 2018-10-18 06:00 | IPN ---
DATE OF SERVICE: 10/17/2018 SUBJECTIVE: The patient was seen and examined at the bedside today morning during hemodialysis. The patient is still very obtunded and sleepy, otherwise he is tolerating the hemodialysis procedure well. He got two units of PRBC transfusion. He is still pending endoscopy at this point. OBJECTIVE: Vital Signs: Temperature 97.7 degrees Fahrenheit. Blood pressure 162/52. Pulse 88. Respiratory rate 20. Saturating 97% on 2 liters by nasal cannula. Intake and Output: Urine output recorded as 150 mL. Weight on the bed scale is 60.7 kg. PHYSICAL EXAMINATION: General: The patient is drowsy, sleepy and laying in bed getting hemodialysis done. Head and Neck Exam: Pupils are equally round and reactive to light. Mucous membranes are moist. Neck is supple. There is no jugular venous distention (JVD). Cardiovascular: S1, S2, regular rate. No edema of the bilateral lower extremities. Grade 3/6 systolic murmur. Respiratory: Chest is clear to auscultation bilaterally. Bilateral equal air entry. No rales or rhonchi. Abdomen: Soft. Positive bowel sounds. Nontender. No organomegaly. Genitourinary: Patient has an indwelling Posadas catheter. Musculoskeletal: No clubbing or cyanosis. Pulses are 2+. Central Nervous System (SUPERVISOR FORCE ADJUSTMENT): The patient is drowsy and sleepy. He does not follow commands at this point. LAB REVIEW: CBC showed a WBC of 7, hemoglobin 8.4 now, and platelets of 160. BMP showed sodium 136, potassium 4, chloride 97, bicarbonate 29, BUN 54, creatinine 6.2, calcium 8.4, magnesium 2.1. C-reactive protein 3.5. MICROBIOLOGY: Clostridium difficile is positive. CURRENT INPATIENT MEDICATIONS: Patient's medications were all reviewed by me. There is no change in the medications today as compared with yesterday. ASSESSMENT AND PLAN: 1. End stage renal disease on hemodialysis. Patient's regular dialysis days are Tuesday, Tuesday, Tuesday. He only got one hour of dialysis yesterday. He is being dialyzed today because he could not finish his dialysis yesterday. Ultrafiltration goal will be around 1 liter as tolerated by his blood pressure. 2. Acute blood loss anemia. The patient is status post 2 units of PRBC transfusion. The patient will also be started on Aranesp 100 mcg with hemodialysis. 3. Acute GI bleed. The patient will get endoscopy. Continue IV Protonix. Continue PRBC transfusion for hemoglobin 8 and below. GI is already on board. 4. Chronic hypotension. Continue current dose of midodrine and before hemodialysis.
[2018-10-18 06:19] LABS: CALCIUM LEVEL 8.3 MG/DL (8.8-10.2); CREATININE FOR GFR 3.55 MG/DL (0.70-1.30); GLOMERULAR FILTRATION RATE 17.5 (>35); MAGNESIUM LEVEL 1.8 MG/DL (1.8-2.4)
[2018-10-18] MEDS: PANTOPRAZOLE 40MG INJ (PROTONIX) (C9113) IV SCH ×2 (06:34→17:37)
[2018-10-18] MEDS: LEVOTHYROXINE 25MCG TABLET (0.025MG) PO SCH (06:34)
--- NOTE | 2018-10-18 07:01 | CR ---
DATE OF CONSULTATION: 10/17/2018 I was asked to consult by Dr. Ling for evaluation of stool positive for Clostridium (C) difficile and abnormal chest CT. HISTORY OF PRESENT ILLNESS: Mr. Dubois is an 87-year-old gentleman with a history of end-stage renal disease on hemodialysis who was admitted for a syncopal episode during dialysis and dialysis was stopped after 1 hour. The patient was diagnosed with a gastrointestinal (GI) bleed. He was hypotensive and had melena. He received 2 units of packed red blood cells. His hemoglobin had dropped from 9.5 to 7.5. The patient denied any fever, chills, chest pain, palpitations, abdominal pain, nausea or vomiting. He had no diarrhea, but had a loose stool in the emergency room that had melena. He was transfused with 2 units of packed red blood cells. The patient today is wearing oxygen, but denies being short of breath. He feels well otherwise. He has no major complaints. He has a history of urinary tract infection and the patient was hospitalized from 08/28/2018 to 09/07/2018 with a urinary tract infection. He had a positive urine culture with Proteus and treated with Rocephin. The patient was rehospitalized on 09/13/2018. He received Rocephin as well as levofloxacin from 09/14/2018 to 09/23/2018. The patient is a [facility] resident. PAST MEDICAL HISTORY: Significant for end-stage renal disease on hemodialysis, hypothyroidism, glaucoma, dementia, chronic obstructive pulmonary disease (COPD), chronic urinary retention, recent hospitalization for a nondisplaced proximal tibia-fibula fracture for which he has a cast to the mid thigh, history of orthostatic hypotension on midodrine. ALLERGIES: - CIPROFLOXACIN - BACTRIM MEDICATIONS: - midodrine 5 mg Tuesday, Tuesday, Tuesday - Probiotics 1 tablet by mouth with meals - Aranesp 100 mcg IV with hemodialysis - levothyroxine 25 mcg daily - Protonix 40 mg IV every 12 hours - Renvela 800 mg with meals - albuterol nebs every 6 hours as needed - Zofran as needed - folic acid 1 mg by mouth daily LABORATORY DATA: White count was 7, hemoglobin 8.4, hematocrit 26, platelets 160. ESR 54. White count yesterday was 11.5 and hemoglobin 7.5. Sodium 136, potassium 4, chloride 97, bicarb 29, BUN 54, creatinine 6.28, glucose 99, calcium 8.4, magnesium 2.1, CRP 3.55. PT 14.2, PTT 89.7. Blood cultures two sets on 10/16/2018 were no growth after 24 hours. Stool GI panel was positive for C diff. IMAGING STUDIES: Chest x-ray showed left pleural effusion [id number] with consolidation. CT angiogram showed similar findings with moderate left pleural effusion, small right pleural effusion with atelectasis and possibly multifocal pneumonia, cystic changes of the pancreas which were unchanged compared to prior CT done in 2018. PHYSICAL EXAMINATION: Temperature is 99.2, pulse 82, respirations 19, blood pressure 162/70, O2 sat 93% 2 liters nasal cannula. There has been no documented bowel movements today. I have discussed the case with nurse's aide and his nurses and he has had no bowel movements today. Heart: Normal S1 and S2 with a systolic ejection murmur 3/6 best heard at left upper sternal border and radiating to the whole precordium. Lungs: Diminished breath sounds, especially at the left base half-way up. There is decreased air entry. Abdomen: Soft, nontender. No visceromegaly. Bowel sounds normal. Genitourinary (): Normal with indwelling Posadas catheter. Urine is clear in the bag. Extremities: No clubbing, cyanosis or edema. Neurologic: Upper and lower extremity strength normal. He has a large cast on the foot all the way to the mid thigh. Left extremity has an AV fistula with a good thrill. PAST SURGICAL HISTORY: Left forearm AV fistula placement, less femoral hemiarthroplasty, esophagogastroduodenoscopy (EGD) and colonoscopy done by Dr. Barriga in 2009 (over 9 years ago) that showed 4 polyps in the transverse colon, adenomatous polyps. IMPRESSION: 1. This is an 87-year-old gentleman who is admitted with hypotension and GI bleeding with melanotic stools who received 2 units of packed red blood cells with marked improvement in his symptoms. Hypotension has resolved. The patient remains without fever or chills. He had no bowel movements today. Stool for GI panel was sent, even though the patient did not have any infectious symptoms he was found to have a positive C difficile by PCR. Of note, the patient has received in the past 2 months a 10-day course of ceftriaxone and a 10-day course of oral levofloxacin. He is a [facility] resident and therefore has at least 20-40% risk of being colonized with C difficile . This is most likely colonization from being in the [facility] and chronic antibiotic use. 2. Abnormal chest CT with bilateral pleural effusion, left more than right, and what seems to me more atelectasis and fluid in the fissures than pneumonia. The patient is afebrile and has no cough, no pleurisy. Therefore, I would not suggest treating him for pneumonia. If the patient is hypoxic and he cannot be dialyzed, just doing a thoracentesis for symptom relief, but at this time he is not even symptomatic. PLAN: 1. Start probiotics twice a day with meals. 2. Avoid antibiotics to decrease the risk of C difficile infection. 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 3. I would not treat hiss pulmonary infiltrates looks like fluid overload Suggest obtaining BNP. If blood pressure tolerates, removal of more fluid if BNP is elevated. thoracentesis could be done if the patient has symptomatic shortness of breath. BNP was ordered. [place]
[2018-10-18] MEDS: LACTOBACILLUS ACIDOPHILUS CAP (BACID) PO SCH ×4 (08:00→17:44)
[2018-10-18] MEDS: (RENVELA) SEVELAMER **CARBONate** 800 MG TAB PO SCH ×4 (08:00→17:37)
[2018-10-18] MEDS ORDERED: MIDODRINE 5 MG TAB PO SCH (09:00)
[2018-10-18] MEDS: FOLIC ACID 1 MG TAB PO SCH (09:47)
--- NOTE | 2018-10-18 15:57 | IPN ---
DATE: 10/18/2018 SUBJECTIVE: Patient was seen and examined at the bedside today morning. Patient is much more awake and alert today. He was able to communicate with me. He got packed red blood cell (PRBC) transfusion yesterday. He has moderate amount of shortness of breath. He is wearing nasal cannula at this point. His hemoglobin is nicely improved to 8.4. Initially, there was a plan to do endoscopy, but it has been postponed now. He was dialyzed yesterday; 1 liter of fluid was removed. OBJECTIVE: VITAL SIGNS: Temperature 97.7 degrees Fahrenheit, blood pressure 172/70, pulse 95, respiratory rate 18, saturating 99% on nasal cannula at 2 liters. INTAKE AND OUTPUT: Urine output recorded is only 150 mL. Ultrafiltration with hemodialysis was 1 liter yesterday. PHYSICAL EXAMINATION: GENERAL: Patient is awake, alert and oriented times two, sitting up in the bed, in mild respiratory distress. HEAD AND NECK EXAMINATION: Pupils equally round and reactive to light. Neck is supple. Mildly elevated jugular venous distention (JVD). CARDIOVASCULAR: S1, S2. Regular rate. No edema on the bilateral lower extremities. A 3/6 systolic ejection murmur was noted. RESPIRATORY: Indicates breath sounds with inspiratory crackles bilaterally from bases up to the mid lung zones. ABDOMEN: Soft. Positive bowel sounds. Nontender. No organomegaly. GENITOURINARY: He has an indwelling Posadas catheter. MUSCULOSKELETAL: No clubbing or cyanosis. Pulses are 2+ CENTRAL NERVOUS SYSTEM: He is much more awake and alert. He is hard of hearing. Otherwise, he follows commands and moves extremities. LABORATORY REVIEW: Complete blood count (CBC) showed a WBC of 13.8, hemoglobin is 8.4, platelets are 178. Basic metabolic panel (BMP) showed sodium 137, potassium is 4, chloride 101, bicarbonate 30, BUN 19, creatinine is 3.5. Brain natriuretic peptide (BNP) is 12,995. MICROBIOLOGY: Clostridium (C) difficile on 10/16/2018 was positive. IMAGING: Abdominal MRI is done. Official report is pending. CURRENT INPATIENT MEDICATIONS: Patient's medications are all reviewed by me. There is no change in the medications today as compared with yesterday. ASSESSMENT AND PLAN: 1. End-stage renal disease on hemodialysis. Patient's regular dialysis days are Tuesday, Tuesday, Tuesday. He has evidence of fluid overload as well. Although he was dialyzed yesterday, I am doing to do his dialysis again today and will try to remove at least 1.5 to 2 liters of fluid as tolerated by his blood pressure. 2. Acute blood loss anemia. Patient got 2 units of packed red blood cells (PRBC) transfusion. Hemoglobin is nicely improved to 8.4. Decision to do endoscopy has been postponed for now. 3. Chronic hypotension. Continue current dose of midodrine before hemodialysis. 4. Fluid overload. Patient got only 1 liter removed yesterday. He also got 2 units of blood. He has elevated BNP and evidence of fluid overload. About 1.5-2 liters of fluid will be removed during hemodialysis. 5. Positive Clostridium (C) difficile toxin in stool test. Patient was seen by infectious disease. He is probably colonized. There is no evidence of C-difficile diarrhea at this point. No need of treatment at this point, as recommended by infectious disease.
[2018-10-18 17:08] LABS: HEMATOCRIT 27.3 % (42.0-52.0); HEMOGLOBIN 8.7 g/dl (13.5-17.5); MEAN CORPUSCULAR HEMOGLOBIN 28.8 pg (27.0-33.0); MEAN CORPUSCULAR HGB CONC 31.9 g/dl (32.0-36.5); MEAN CORPUSCULAR VOLUME 90.4 fl (80.0-96.0); PLATELET COUNT, AUTOMATED 192 10^3/uL (150-450); RED BLOOD COUNT 3.02 10^6/uL (4.30-6.10); WHITE BLOOD COUNT 16.7 10^3/uL (4.0-10.0)
--- NOTE | 2018-10-18 17:22 | IPNPDOC ---
Text Note Date of Service The patient was seen on 10/18/18. NOTE SUBJECTIVE: Patient is seen and examined in the room today. Patient still has bloody stools. Denied any fevers or chills. No event is reported. OBJECTIVE: VITAL SIGNS: Listed below. GENERAL: No sign of acute distress. Patient alert and awake. HEENT: Normocephalic, atraumatic. Extraocular muscles intact grossly intact. CARDIOVASCULAR: Positive S1, S2. Regular rate. RESP: Diminished breath sounds. Positive fine crackles. ABDOMEN: Soft and nontender. EXTREMITIES: Right lower extremity has a cast. No significant lower extremity edema appreciated. LABORATORY DATA: Listed below. ASSESSMENT AND PLAN: #. Acute blood loss anemia secondary to gastrointestinal (GI) bleed. - History of internal hemorrhoids and diverticulosis of entire colon. Patient had a colonoscopy done in June 2010. Upper endoscopy was also performed on the same day. Results are reviewed. - 2 PRBC transfusions (10/16/18 and 10/17/18). Currently will continue to trend hemoglobin and hematocrit. - GI specialist consulted. #. End-stage renal disease, on hemodialysis. - In the outpatient setting patient's dialysis days are Tuesday, Tuesday, Tuesday. - Nephrology consulted. Dialysis on 10/18/18. #. Bilateral pleural effusion. - Echocardiogram performed on 10/17/1819. Grade 1 diastolic dysfunction. Patient is on dialysis. Currently will continue to monitor patient's respiratory status. # Diastolic Dysfunction - Echocardiogram performed on 10/17/18. - Dialysis on 10/18/18. #. Pancreatic cyst, initially noted on the CT abdomen and pelvis. Repeat MRI abdomen and pelvis. Preliminary report reviewed. #. History of hypotension. Patient on midodrine. #. Hypothyroidism, on Synthroid. #. Chronic obstructive pulmonary disease (COPD) exacerbation. - No exacerbation. Continue to monitor. #. History of right tibia-fibula fracture. - Cast in place. Continue outpatient followup. #. Deep vein thrombosis (DVT) prophylaxis. - Currently patient has acute GI bleed. Not a candidate for SARAH due to the right lower extremity fracture. VS,Fishbone, I+O VS, Fishbone, I+O Laboratory Tests 10/18/18 05:29 Red Blood Count 2.84 L, Mean Corpuscular Volume 92.6, Mean Corpuscular Hemoglobin 29.6, Mean Corpuscular Hemoglobin Concent 31.9 L, Red Cell Di stribution Width 18.5 H, Calcium Level 8.3 L Vital Signs Date Time Temp Pulse Resp B/P (MAP) Pulse Ox O2 Delivery O2 Flow Rate FiO2 10/18/18 16:03 98.3 95 22 176/64 (101) 93 2.0 10/16/18 15:13 Nasal Cannula I&O- Last 24 Hours up to 6 AM 10/18/18 06:00 Intake Total 780 ml Output Total 1250 ml Balance -470 ml KAREN MARTINEZ DO Oct 18, 2018 17:22
--- NOTE | 2018-10-18 20:15 | ECGEPIP ---
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
[2018-10-19] VITALS (11 sets, daily range): BP systolic 126–200; BP diastolic 58–82
[2018-10-19] MEDS ORDERED: hydrALAZINE INJ 20 MG/ML VIAL IV ONE (02:45)
[2018-10-19] MEDS ORDERED: FUROSEMIDE 40 MG/4 ML VIAL (J1940) IV ONE (04:30)
--- NOTE | 2018-10-19 05:03 | REPVR ---
EXAM: XR Chest, 1 View EXAM DATE/TIME: 10/19/2018 4:40 AM CLINICAL HISTORY: 87 years old, male; Signs and symptoms; Other: Change in condition TECHNIQUE: XR of the chest, 1 view. COMPARISON: CR PORTABLE CHEST X-RAY 10/16/2018 8:04 AM FINDINGS: Tubes, catheters and devices: Overlying EKG leads are seen. Lungs: There is moderate left-sided pleural effusion with overlying atelectasis versus infiltrate grossly unchanged. There is interval development of right lower lung zone atelectatic changes versus infiltrates. There is mild increased interstitial markings in the right upper lobe. Pleural space: Unremarkable. No pleural effusion. No pneumothorax. Heart/Mediastinum: The cardiomediastinal silhouette is magnified. Vasculature: Aortic knob calcification seen. Bones/joints: Unremarkable. IMPRESSION: 1. No change in moderate left-sided pleural effusion with overlying atelectasis and/or infiltrates. 2. Interval development of right lower lung zone infiltrates and interval increase in interstitial markings possibly interstitial infiltrates in the right upper lung zone. Electronically signed by: Tramaine Pabon On 10/19/2018 05:03:32 AM
[2018-10-19] MEDS: SLF 3 ML SYR IV SCH ×3 (06:00→20:22)
[2018-10-19] MEDS: PANTOPRAZOLE 40MG INJ (PROTONIX) (C9113) IV SCH ×2 (06:00→18:22)
[2018-10-19 06:02] LABS: HEMATOCRIT 27.5 % (42.0-52.0); HEMOGLOBIN 8.6 g/dl (13.5-17.5); MEAN CORPUSCULAR HEMOGLOBIN 28.1 pg (27.0-33.0); MEAN CORPUSCULAR HGB CONC 31.3 g/dl (32.0-36.5); MEAN CORPUSCULAR VOLUME 89.9 fl (80.0-96.0); PLATELET COUNT, AUTOMATED 211 10^3/uL (150-450); RED BLOOD COUNT 3.06 10^6/uL (4.30-6.10); WHITE BLOOD COUNT 15.6 10^3/uL (4.0-10.0)
[2018-10-19 06:11] LABS: CALCIUM LEVEL 8.3 MG/DL (8.8-10.2); CREATININE FOR GFR 4.94 MG/DL (0.70-1.30); MAGNESIUM LEVEL 1.8 MG/DL (1.8-2.4); POTASSIUM SERUM 3.8 MEQ/L (3.5-5.1)
[2018-10-19] MEDS: LEVOTHYROXINE 25MCG TABLET (0.025MG) PO SCH (06:40)
[2018-10-19] MEDS: LACTOBACILLUS ACIDOPHILUS CAP (BACID) PO SCH ×2 (08:00→18:22)
[2018-10-19] MEDS: (RENVELA) SEVELAMER **CARBONate** 800 MG TAB PO SCH ×3 (08:00→18:22)
[2018-10-19] MEDS: FOLIC ACID 1 MG TAB PO SCH (09:00)
[2018-10-19] MEDS: ALBUTEROL SULFATE 2.5 MG/0.5 ML INH NEB SOLN INH PRN (11:02)
--- NOTE | 2018-10-19 11:46 | IPN ---
DATE: 10/19/2018 SUBJECTIVE: Patient was seen and examined at the bedside today morning. He is in mild respiratory distress. The last 24 hour events were noted. He had an episode of respiratory distress overnight as well. He was given nebulizations and Lasix overnight. I tried to do a session of ultrafiltration yesterday, however his needles infiltrated and dialysis had to be terminated within the first 15 minutes of hemodialysis. Patient denies any active complaints. OBJECTIVE: VITAL SIGNS: Temperature is 98.3 degrees Fahrenheit, blood pressure 140/62, pulse 108, respiratory rate 20, saturating 94% on 2 liters via nasal cannula. INTAKE AND OUTPUT: Urine output recorded as 125 mL overnight. Weight on the bed scale is not available. PHYSICAL EXAMINATION: GENERAL: Patient is awake, alert and oriented times two, sitting up in the bed, mild respiratory distress. HEAD AND NECK EXAM: Extraocular muscles intact. Pupils equally round and reactive to light. Mucous membranes are moist. Neck is supple. Moderately elevated jugular venous distention (JVD). CARDIOVASCULAR: S1, S2 regular rate. 1+ edema on the bilateral lower extremities. Grade 3/6 systolic ejection murmur. RESPIRATORY: Decreased breath sounds at the bases. Active inspiratory crackles bilaterally from the bases up to the mid lung zones. ABDOMEN: Soft. Positive bowel sounds. Nontender. No organomegaly. GENITOURINARY: He has an indwelling Posadas catheter. Urine in the bag was clear. MUSCULOSKELETAL: No clubbing or cyanosis. Pulses are 2+. CENTRAL NERVOUS SYSTEM: He is awake and alert. He is oriented times two, follows commands. LABORATORY REVIEW: CBC showed a WBC of 15.6, hemoglobin is 8.6, platelets are 211. Basic metabolic panel (BMP) showed sodium 136, potassium is 3.8, chloride 99, bicarbonate 29, BUN 28, creatinine is 4.9, calcium 8.3, magnesium is 1.8. IMAGING: A chest x-ray was done today morning. It showed no change in moderate left sided pleural effusion with overlying atelectasis. Interval development of the right lower lung zone infiltrates and interval increase in interstitial markings. CURRENT INPATIENT MEDICATIONS: Patient's medications are all reviewed by me. He was given a dose of Lasix 40 mg IV times one dose. There is no change in the medications today as compared with yesterday. ASSESSMENT AND PLAN: 1. End-stage renal disease on hemodialysis. Patient's regular dialysis days are Tuesday, Tuesday, Tuesday. We tried to do hemodialysis as per his regular schedule yesterday, however, the needle infiltrated. I am going to try to do his regular dialysis today and tried to remove at least 2.5 liters of fluid as tolerated by his blood pressure. 2. Acute blood loss anemia. Patient is status post 2 units of packed red blood cells (PRBC) transfusion during this hospitalization. Hemoglobin is 8.6, which is optimal. He is also on Aranesp 100 mcg IV with hemodialysis. 3. Chronic hypotension. Continue current dose of midodrine before each hemodialysis session. 4. Shortness of breath and fluid overload. As mentioned above, patient going to get dialysis and at least 2.5 liters of fluid removal. Chest x-ray done today morning shows pulmonary edema.
--- NOTE | 2018-10-19 16:04 | IPNPDOC ---
Text Note Date of Service The patient was seen on 10/19/18. NOTE SUBJECTIVE: Patient is seen and examined in the room today. Patient had worsening of breathing overnight. Diuretic and breathing were given. Patient states his breathing demonstrates some improvement but he still has labored breathing during the morning encounter. Denied any fevers or chills. OBJECTIVE: VITAL SIGNS: Listed below. GENERAL: No sign of acute distress. Patient alert and awake. HEENT: Normocephalic, atraumatic. Extraocular muscles intact grossly intact. CARDIOVASCULAR: Positive S1, S2. Regular rate. RESP: Diminished breath sounds. Positive fine crackles. ABDOMEN: Soft and nontender. EXTREMITIES: Right lower extremity has a cast. Positive lower extremity edema appreciated. LABORATORY DATA: Listed below. 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 CXR reviewed. Patient demonstrates sign of fluid overload. IV lasix was given. Dialysis on 10/19/18 for fluid removal. #. #. Acute blood loss anemia secondary to gastrointestinal (GI) bleed. - History of internal hemorrhoids and diverticulosis of entire colon. Patient had a colonoscopy done in June 2010. Upper endoscopy was also performed on the same day. Results are reviewed. - 2 PRBC transfusions (10/16/18 and 10/17/18). Continue trending hemoglobin and hematocrit. - GI specialist consulted. #. End-stage renal disease, on hemodialysis. - In the outpatient setting patient's dialysis days are Tuesday, Tuesday, Tuesday. - Nephrology consulted. - Needle infiltrated yesterday in the beginning of dialysis and patient did not have HD yesterday. Dialysis on 10/19/18. #. Bilateral pleural effusion. - Echocardiogram performed on 10/17/1819. Grade 1 diastolic dysfunction. Patient is on dialysis. Currently will continue to monitor patient's respiratory status. # Diastolic Dysfunction - Echocardiogram performed on 10/17/18. - Dialysis on 10/19/18. #. Pancreatic cyst, initially noted on the CT abdomen and pelvis. Repeat MRI abdomen and pelvis. Preliminary report reviewed. #. History of hypotension. Patient on midodrine. #. Hypothyroidism, on Synthroid. #. Chronic obstructive pulmonary disease (COPD) exacerbation. - No exacerbation. Continue to monitor. #. History of right tibia-fibula fracture. - Cast in place. Continue outpatient followup. #. Deep vein thrombosis (DVT) prophylaxis. - Currently patient has acute GI bleed. Not a candidate for compression due to the right lower extremity fracture. VS,Fishbone, I+O VS, Fishbone, I+O Laboratory Tests 10/18/18 17:02 Red Blood Count 3.02 L, Mean Corpuscular Volume 90.4, Mean Corpuscular Hemoglobin 28.8, Mean Corpuscular Hemoglobin Concent 31.9 L, Red Cell Distribution Width 18.1 H 10/19/18 05:22 Red Blood Count 3.06 L, Mean Corpuscular Volume 89.9, Mean Corpuscular Hemoglobin 28.1, Mean Corpuscular Hemoglobin Concent 31.3 L, Red Cell Distribution Width 17.7 H, Calcium Level 8.3 L Vital Signs Date Time Temp Pulse Resp B/P (MAP) Pulse Ox O2 Delivery O2 Flow Rate FiO2 10/19/18 15:00 97.5 115 18 126/59 (81) 100 2.0 10/16/18 15:13 Nasal Cannula I&O- Last 24 Hours up to 6 AM 10/19/18 06:00 Intake Total 1020 ml Output Total 125 ml Balance 895 ml KAREN MARTINEZ DO Oct 19, 2018 16:04
--- NOTE | 2018-10-19 23:20 | IPN ---
DATE: 10/19/2018 Mr. Dubois is an 87-year-old gentleman who was admitted with a GI bleed. The patient had dialysis today and his shortness of breath improved. He is somewhat lethargic this afternoon, but according to nursing he was alert earlier. He seems to be just tired from dialysis. He had no bowel movements all day today. He had one bowel movement at midnight which was still mahogony. There was no diarrhea. He has shortness of breath, but no cough. No fever or chills. LABORATORY DATA White count 15.6, which has increased. Hemoglobin 8.6, hematocrit 27.5, platelets 211. Sodium 136, potassium 3.8, chloride 99, bicarb 29, BUN 28, creatinine 4.94, glucose 96, calcium 8.3, magnesium 1.8, BNP 12,995, blood cultures two sets were negative at 72 hours. Stool for C diff was positive on 10/16 that was not treated as the patient did not have diarrhea and this was felt to be colonization from being in the long-term and receiving multiple broad-spectrum antibiotics over the past 6 weeks. 10/19 chest x-ray shows no change in moderate left-sided pleural effusion with overlying atelectasis/infiltrates. Interval development of right lower lobe lung infiltrate and prominent interstitial markings. PHYSICAL EXAMINATION: Temperature is 98.4, pulse 110, respirations 32, blood pressure 154/69, O2 sat 100% on 2 liters nasal cannula. Heart: Normal S1, S2 with a loud systolic ejection murmur 3/6 heard all over the quadrants and on his back. Lungs: Show expiratory crackles as well as diminished breath sounds at the bases, especially on the left side. Abdomen: Soft, nontender. No hepatosplenomegaly. Extremities: No edema. IMPRESSION 1. Congestive heart failure with elevated BNP. Heart failure with preserved ejection fraction. His ejection fraction is 65-70%. Chest x-ray shows persistent effusion with some questionable pneumonia. If patient has worsening white count or fever he will need to be treated with antibiotics. 2. GI bleed, stable. No further need for blood transfusion. 3. C difficile colonization. No diarrhea and therefore this was not treated. PLAN Repeat CBC, CRP in the morning. Monitor for pulmonary symptoms. If the patient develops fever would add antibiotics.
[2018-10-20] VITALS (40 sets, daily range): BP systolic 67–190; BP diastolic 32–93
[2018-10-20] MEDS ORDERED: hydrALAZINE INJ 20 MG/ML VIAL IV STA (00:15)
[2018-10-20] MEDS: ALBUTEROL SULFATE 2.5 MG/0.5 ML INH NEB SOLN INH PRN (01:42)
[2018-10-20 03:03] LABS: ABG HCO3 31.3 MEQ/L (22.0-26.0); ABG O2 SATURATION 88.3 % (95.0-99.0); ABG PARTIAL PRESSURE CO2 79.4 mmHg (35.0-45.0); ABG PARTIAL PRESSURE O2 62.9 mmHg (75.0-100.0); ABG STANDARD HCO3 26.1 MEQ/L (22.0-26.0); ABG TOTAL CO2 33.8 MEQ/L (23.0-31.0); ABG pH (ARTERIAL) 7.214 UNITS (7.350-7.450)
[2018-10-20 03:18] LABS: HEMATOCRIT 31.9 % (42.0-52.0); HEMOGLOBIN 9.5 g/dl (13.5-17.5); MEAN CORPUSCULAR HEMOGLOBIN 28.5 pg (27.0-33.0); MEAN CORPUSCULAR HGB CONC 29.8 g/dl (32.0-36.5); MEAN CORPUSCULAR VOLUME 95.8 fl (80.0-96.0); PLATELET COUNT, AUTOMATED 229 10^3/uL (150-450); RED BLOOD COUNT 3.33 10^6/uL (4.30-6.10); WHITE BLOOD COUNT 25.5 10^3/uL (4.0-10.0)
[2018-10-20 03:36] LABS: CALCIUM LEVEL 8.7 MG/DL (8.8-10.2); CREATININE FOR GFR 3.43 MG/DL (0.70-1.30); GLOMERULAR FILTRATION RATE 18.2 (>35); POTASSIUM SERUM 4.4 MEQ/L (3.5-5.1)
[2018-10-20] MEDS ORDERED: LATANOPROST 0.005% OPHTH SOLN 2.5 ML OU SCH (03:39)
[2018-10-20] MEDS ORDERED: GLUCAGON FOR INJ 1 MG VIAL (J1610) SC PRN (03:45)
[2018-10-20] MEDS ORDERED: DEXTROSE 50% 50 ML SYRINGE IV PRN (03:45)
[2018-10-20] MEDS ORDERED: GLUCOSE 4 GM CHEW TABLET PO PRN (03:45)
[2018-10-20] MEDS ORDERED: ACETAMINOPHEN 500 MG TAB PO PRN (03:45)
[2018-10-20] MEDS ORDERED: MOM 30ML SUSPENSION UDC PO PRN (03:45)
[2018-10-20] MEDS ORDERED: BISACODYL 10 MG SUPP PR PRN (03:45)
[2018-10-20] MEDS ORDERED: methylPREDNISolone INJ 125 MG/2 ML VIAL (J2930) IV SCH (04:00)
[2018-10-20] MEDS: ALBUTEROL SULFATE 2.5 MG/0.5 ML INH NEB SOLN INH SCH ×6 (04:00→23:47)
[2018-10-20] MEDS ORDERED: NS 1,000 ML IV ONE (04:30)
--- NOTE | 2018-10-20 04:41 | REPVR ---
EXAM: XR Chest, 1 View EXAM DATE/TIME: 10/20/2018 2:53 AM CLINICAL HISTORY: 87 years old, male; Signs and symptoms; Other: SOB TECHNIQUE: XR of the chest, 1 view. COMPARISON: CR PORTABLE CHEST X-RAY 10/19/2018 4:35 AM FINDINGS: Lungs: There is an opacity in the left lung base and hazy opacity through the left mid lung region, likely at least in part to compressive atelectasis of the left lower lobe. Prominence of the interstitium is again seen, which could be from an interstitial infiltrate or mild interstitial pulmonary edema. There is improvement in hazy opacity in the right lung base compared to the prior exam, probably from decreased atelectasis. Pleural space: There is a moderate size left pleural effusion, similar to pain prior exam. Heart/Mediastinum: There is stable cardiomegaly. Bones/joints: Unremarkable. IMPRESSION: 1. No significant change in the left pleural effusion and left lung base opacity. 2. Improvement in small hazy opacity in the right lung base. 3. Interstitial prominence, which may be due to mild interstitial pulmonary edema. Electronically signed by: Binta Rea On 10/20/2018 04:41:22 AM
[2018-10-20 04:59] LABS: ABG BASE EXCESS 2.8 (-2.0-2.0); ABG HCO3 30.8 MEQ/L (22.0-26.0); ABG O2 SATURATION 98.6 % (95.0-99.0); ABG PARTIAL PRESSURE O2 114.4 mmHg (75.0-100.0); ABG TOTAL CO2 32.9 MEQ/L (23.0-31.0); ABG pH (ARTERIAL) 7.265 UNITS (7.350-7.450)
[2018-10-20] MEDS: LEVOTHYROXINE 25MCG TABLET (0.025MG) PO SCH (04:59)
[2018-10-20] MEDS: SLF 3 ML SYR IV SCH (05:00)
[2018-10-20] MEDS: PANTOPRAZOLE 40MG INJ (PROTONIX) (C9113) IV SCH (05:00)
[2018-10-20 05:02] LABS: ABG PARTIAL PRESSURE CO2 69.3 mmHg (35.0-45.0)
[2018-10-20] MEDS ORDERED: HumaLOG INSULIN (NovoLOG) PER UNIT SC SCH ×2 (07:30→21:00)
[2018-10-20] MEDS: (RENVELA) SEVELAMER **CARBONate** 800 MG TAB PO SCH (08:00)
[2018-10-20] MEDS ORDERED: IPRATROPIUM 0.5MG/ALBUTEROL 2.5MG INH SOL UD 3ML (DUONEB)(J7620) INH SCH (09:00)
[2018-10-20] MEDS ORDERED: ASPIRIN 81 MG ENTERIC TAB PO SCH (09:00)
[2018-10-20] MEDS ORDERED: FUROSEMIDE 40 MG TAB PO SCH (09:00)
[2018-10-20] MEDS ORDERED: LACTOBACILLUS RHAMNOSUS POWDER PACKET(CULTURELLE) PO SCH (09:00)
[2018-10-20] MEDS ORDERED: cefTRIAXone SOD 1 GM in D5W MINI-BAG PLUS 50 ML IV SCH (09:00)
[2018-10-20] MEDS ORDERED: OCUVITE 1 TAB PO SCH (09:00)
[2018-10-20] MEDS ORDERED: CARVedilol 12.5 MG TAB PO SCH (09:00)
[2018-10-20] MEDS ORDERED: metroNIDAZOLE 500 MG in APPROPRIATE DILUENT 1 EA IV SCH (10:00)
--- NOTE | 2018-10-20 10:08 | CCN ---
DATE OF SERVICE: 10/20/2018 Critical care time was 1 hour and 9 minutes. This excludes all procedures. I was called to see Mr. Dubois because of respiratory failure. Mr. Dubois is an 87-year-old male with end-stage renal disease, who has been having difficulty with hypotension post dialysis. The reason he was admitted on 10/16/2018 was he was having syncope after dialysis. They also noted some melanotic stool. He became lethargic yesterday after dialysis. This morning was very hypotensive with systolic blood pressures 67/38. At that time, blood work was performed. The patient was transferred to the intensive care unit (ICU) and was found to be in hypercarbic respiratory failure. He was placed on bilevel noninvasive ventilation. I was consulted this morning to assist with bilevel therapy. On my arrival to the room, the patient is not arousing to voice and not arousing to loud clapping near his ear. He barely moans to tactile stimuli. Is not moving much, and in fact, has respiratory pauses with on the bilevel positive airway pressure (BiPAP) as his a backup rate is about 4. He is obtaining tidal volumes of 4-500 on his current settings. Oxygen saturation remains 100% on 0.35 FiO2. This morning's arterial blood gas which showed as a pH of 7.21 and pCO2 of 79 and a pAO2 of 63 on a questionable amount of oxygen. Today, he does have a cough. His family states that he normally coughs and the cough increases with volume overload. PHYSICAL EXAMINATION: Temperature is 96.6, pulse is 104, respiratory rate ranges from 4-20. Blood pressure is also a fairly labile. Blood pressure currently is 120/58. Of note, just prior to this episode of hypotension the patient did receive hydralazine. The patient did have 2 liters off with dialysis yesterday. General: Lethargic. Barely arousable with tactile stimuli. Does not lift his head off the pillow. HEENT: Pupils are pinpoint but reactive. Sclera is anicteric. Mucous membranes are moist. Tongue is midline. Neck: Supple. There is elevated jugular venous pulse (JVP). No cervical, supraclavicular or axillary adenopathy. Pulmonary: Decreased breath sounds at the right base surprisingly more so than the left base given this morning's x-ray. There is no wheeze. There is no accessory muscle use. Abdomen: Soft, nontender, nondistended. No hepatosplenomegaly. No masses or hernia. Extremities: Chronic bruising. There is a cast over the right lower extremity. There is a left forearm fistula recently accessed with significant erythema. Musculoskeletal: He has significant muscle wasting. No evidence of unilateral weakness. Neurologic: No asterixis. No myoclonus . Lethargic, not moving much. No obvious unilateral defect. Is coughing and attempting to protect his airway. Laboratory evaluation shows sodium 139, potassium 4.4, chloride 102, bicarbonate of 29, BUN of 16, creatinine of 3.43 with a glucose of 133. Arterial blood gas shows a pH of 7.27, pCO2 of 69 and a pAO2 of 114 an hour after being on bilevel. White count at 3:00 a.m. was 25.5 with a hemoglobin 9.5 and platelet count of 229. Chest x-ray this morning continues to show vascular congestion blunting of the left costophrenic angle and left pleural effusion. I cannot rule out an underlying pneumonia on that side. Right appears fairly clear except for vascular congestion. No evidence of right-sided infiltrate. There was an angio CT performed on 10/16/2018 and this was personally reviewed showing bilateral pleural effusions. The radiologist reports no evidence of pulmonary embolism as the patient was at risk given his recent leg fracture. 1. Hypercarbic respiratory failure possibly secondary to hypoperfusion. I do not believe the patient requires Solu-Medrol for bronchospasm. Therefore, I have discontinued this. Will continue on bilevel therapy until the patient is able to breathe on his own. He is a DO NOT RESUSCITATE, DO NOT INTUBATE. His Medical Orders for Life Sustaining Treatment (MOLST) form suggests trial of noninvasive ventilation. 2. Hypotension. It does appear that the patient is becoming intolerant to dialysis and it seems that after every dialysis the patient is having hypotension, syncope and maybe even bowel ischemia as he is having melanotic stools after dialysis. I question whether or not given the degree of volume overload that he has despite dialysis whether or not he will be able to continue this treatment in the future. 3. Volume overload despite quite a bit of diuresis in dialysis yesterday. Will discuss with nephrology whether or not the patient is can be tolerant of future dialysis. 4. Leukocytosis. This is new since admission. Therefore, I believe it is reasonable to rule out infection with blood cultures. The leukocytosis was found prior. He may have underlying sepsis and this is causing hypoperfusion. He is volume overloaded, and therefore, would not follow the usual guidelines for sepsis given his volume status and his difficulty with dialysis. However, will obtain blood cultures, lactic acid and start empiric antibiotics with ceftriaxone as his likely sources are lung and urine. Will also start IV Flagyl. At this point in time, I do not want to start broad-spectrum antibiotics due to his history of Clostridium (C) difficile. We will continue to monitor for signs, symptoms of infection. His hypotension may simply be due to his inability to tolerate dialysis and he has had rapid fluctuations in his blood pressure throughout the past year along with frequent hospitalizations. His leukocytosis could be simply a response to his critical illness and not necessarily infection. However, I believe this should be covered as above. The patient's family is considering withdrawal of care as he does not want aggressive measures. They had brought this to the attention of myself and nephrology, and at this point in time, we will continue the above plan unless the patient's family approaches us with a different course of action they were updated at bedside. We will continue discussions regarding what the patient would have wanted in this circumstance. TERESA
[2018-10-20 10:12] LABS: ABG BASE EXCESS 1.5 (-2.0-2.0); ABG HCO3 27.4 MEQ/L (22.0-26.0); ABG PARTIAL PRESSURE CO2 49.3 mmHg (35.0-45.0); ABG PARTIAL PRESSURE O2 117.6 mmHg (75.0-100.0); ABG STANDARD HCO3 25.9 MEQ/L (22.0-26.0); ABG TOTAL CO2 28.9 MEQ/L (23.0-31.0); ABG pH (ARTERIAL) 7.362 UNITS (7.350-7.450)
[2018-10-20] MEDS ORDERED: MORPHINE 10MG/0.5ML ORAL CONCENTRATE SOLUTION U/D SL PRN (13:45)
[2018-10-20] MEDS ORDERED: LORazepam 1 MG TAB PO PRN (13:45)
[2018-10-20] MEDS ORDERED: SCOPOLAMINE 1MG TRANSDERMAL PATCH TOP PRN (13:45)
[2018-10-20] MEDS ORDERED: HEPARIN SOD (PORCINE) 5000 UNITS/ML VIAL SQ SCH (14:00)
--- NOTE | 2018-10-20 14:15 | ECGEPIP ---
Stationary ECG Study 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
--- NOTE | 2018-10-20 15:19 | IPN ---
DATE: 10/20/2018 SUBJECTIVE: The patient was seen and examined at the bedside today morning in the intensive care unit (ICU). Last 24 hour events were noted. The patient was dialyzed yesterday and two liters of fluid was removed. However, the patient was hypertensive overnight. He was initially given hydralazine IV and later on his blood pressure dropped to 60s and 70s. The patient was given normal saline one liter bolus. He was brought to ICU. He was in hypercapnic and hypoxic respiratory failure. He has been placed on bilevel positive airway pressure (BiPAP). Laboratory tests overnight showed a white cell count of 25,000 and the patient is being empirically started on antibiotic coverage as well for possible healthcare-associated pneumonia. The patient's daughter was also present at the bedside. The patient himself is unable to provide any review of systems. He is very drowsy and obtunded on the BiPAP. All the questions of the family members were answered by myself. OBJECTIVE: VITAL SIGNS: Temperature is 97 degrees Fahrenheit, blood pressure is 135/63, pulse is 96, respiratory rate of 14, saturating 100% on bilevel positive airway pressure (BiPAP) at 35% FiO2. INTAKE AND OUTPUT: Urine output recorded is only 20 mL. Ultrafiltration with hemodialysis was two liters yesterday. Weight in the bed scale is 60.3 kg. PHYSICAL EXAMINATION: GENERAL: The patient is obtunded, sleepy and currently on bilevel positive airway pressure (BiPAP) HEAD AND NECK: Eyes are closed. Otherwise, pupils are round and reactive to light. Mucous membranes are dry at this point because of BiPAP. Neck is supple. There is mildly elevated jugular venous distention (JVD). CARDIOVASCULAR: S1, S2 regular rate, 1+ edema of the bilateral lower extremities. Grade 3/6 systolic ejection murmur. RESPIRATORY: Decreased breath sounds at the bases. Very decreased air entry despite being on the BiPAP. Inspiratory crackles bilaterally at the bases. ABDOMEN: Soft. Positive bowel sounds. Nontender. No organomegaly. GENITOURINARY: The patient has an indwelling Posadas catheter. MUSCULOSKELETAL: No clubbing or cyanosis. Pulses are 2+. CENTRAL NERVOUS SYSTEM (STREET INSPECTOR): The patient is very drowsy and obtunded and he wakes up on painful stimuli. LABORATORY REVIEW: CBC showed a WBC of 25.5, hemoglobin is 9.5, platelets are 229. ABG done overnight showed a pH of 7.21, pCO2 of 69, pO2 of 62, bicarbonate 33.8, oxygen saturation of 88.3. Repeat ABG today morning showed a pH of 7.36, pCO2 49, pO2 117, bicarbonate is 27.4, oxygen saturation is 99%. BMP done today morning showed sodium 139, potassium is 4.4, chloride 102, bicarbonate 29, BUN 16, creatinine is 3.4, lactic acid is 0.7, calcium 8.7, magnesium is 1, C-reactive protein 24.9. MICROBIOLOGY: Repeat blood cultures are pending. IMAGING: A chest x-ray done today morning showed no significant change in the left-sided pleural effusion and left lung base opacity. Improvement in the small hazy opacity in the right lung base. Interstitial prominence due to mild interstitial pulmonary edema. CURRENT INPATIENT MEDICATIONS: The patient has been started on ceftriaxone and Flagyl. He was given a bolus of normal saline one liter overnight. He is getting DuoNeb nebulizations. Coreg has been stopped. Lasix has been stopped. Oral levothyroxine has been stopped. He is on Protonix 40 mg IV every 12 hours. Renvela is on hold. ASSESSMENT AND PLAN: 1. End-stage renal disease on hemodialysis. The patient's regular dialysis days are Tuesday, Tuesday, Tuesday. However, he was dialyzed yesterday. Two liters of fluid was removed. He is being treated as possible sepsis. I will hold off on doing the dialysis today. Once the patient is hemodynamically more stable, I will do his hemodialysis at bedside tomorrow morning. 2. Acute hypoxic and hypercapnic respiratory failure. It is possibly secondary to a combination of healthcare associated pneumonia and pulmonary edema. The patient is already on bilevel positive airway pressure (BiPAP). Pulmonary service is already onboard. He has been empirically started on ceftriaxone and Flagyl. The patient will get another session of hemodialysis tomorrow morning once he is hemodynamically more stable. 3. Chronic diastolic congestive heart failure. The patient got dialysis yesterday. However, overnight he went into respiratory distress and he was initially hypertensive and later on hypotensive. I would avoid doing another session of hemodialysis. The patient will get further optimization of fluid status tomorrow morning with dialysis. DISPOSITION: The patient's family members are deciding about possible withdraw of care if he does not respond to trial of bilevel positive airway pressure (BiPAP) and IV antibiotics. ADDENDUM: I discussed the goals of care with the patient's family members. His daughters and sons were all present. They have finally decided that the patient has suffered a lot. He is currently with multiple organ failure including renal failure, respiratory failure, congestive heart failure. He is chronically bedridden with a right leg fracture, which has a cast right now. His children do not want him to suffer anymore and they have finally decided to make the patient comfort measures only and withdraw all current care. I got the medical orders for life-sustaining treatment (MOLST) form signed by his daughter, Lianne Carlson, who is the power of workers compensation defense attorney. I discussed the plan of care with the primary team, Dr. Sabrina Ling and the pulmonary critical care team, Dr. Matt Watson. The form was placed on the chart. Further orders for comfort measures and pain medications will be done by Dr. Sabrina Ling. at 1305 at 1400 abril MOORE
--- NOTE | 2018-10-20 18:15 | IPN ---
DATE: 10/20/2018 SUBJECTIVE: Patient seen and examined in the room today. Overnight patient had hypoxic hypercapnic respiratory failure. Patient was transferred to intensive care unit (ICU). Patient placed on bilevel positive airway pressure (BiPAP). Later, after family discussion they decided to place the patient on comfort measures only. OBJECTIVE: VITAL SIGNS: Temperature is 96.6, pulse is 28, blood pressure is 137/62, oxygen saturation 100% on BiPAP. GENERAL: Patient is not oriented in the morning. Barely responds to stimulus. HEENT: Normocephalic, atraumatic. CARDIOVASCULAR: Positive S1, S2, tachycardic. LUNGS: Decreased breath sounds. No wheezes. ABDOMEN: Soft, nontender, nondistended.. EXTREMITIES: Cast of the right lower extremity. Dialysis fistula located in left upper extremity. LABORATORY DATA: WBC 25.5, hemoglobin 9.5, hematocrit 31.9, platelet count is 228. Sodium is 139, potassium 4.4, chloride 102, carbon dioxide 29, BUN 16, creatinine 3.43, GFR is 18.2, fasting glucose 133, calcium 8.7, magnesium 2, C-reactive protein is 24.9. ASSESSMENT AND PLAN: 1. Hypercarbic respiratory failure. 2. Hypothyroidism. 3. End-stage renal disease, on dialysis. 4. Leukocytosis. 5. Clostridium (C) difficile also secondary to colonization. 6. Acute blood loss anemia secondary to gastrointestinal (GI) bleed. 7. Bilateral pleural effusions. 8. Diastolic congestive heart failure. 9. Pancreatic cyst. 10. Hypothyroidism. 11. Chronic obstructive pulmonary disease (COPD). 12. Right tibial/fibula fracture, cast. PLAN: After family discussion, patient is placed on comfort measures only. Hospice medication ordered. Patient on mechanical soft diet. Hospice consulted. TERESA
[2018-10-21] MEDS: ALBUTEROL SULFATE 2.5 MG/0.5 ML INH NEB SOLN INH SCH ×6 (04:00→23:54)
--- NOTE | 2018-10-21 18:43 | IPNPDOC ---
Text Note Date of Service The patient was seen on 10/21/18. NOTE SUBJECTIVE: Patient was seen and examined in the room today. Patient was resting during encounter. Family member stated patient has been sleeping most of the day. No anxiety. No distress. OBJECTIVE: VITAL SIGNS: Listed below. GENERAL: Patient is not oriented in the morning. Barely responds to stimulus. HEENT: Normocephalic, atraumatic. CARDIOVASCULAR: Positive S1, S2, tachycardic. LUNGS: Decreased breath sounds. No wheezes. ABDOMEN: Soft, nontender, nondistended. EXTREMITIES: Cast of the right lower extremity. Dialysis fistula located in left upper extremity. LABORATORY DATA: Listed below. ASSESSMENT AND PLAN: 1. Hypercarbic respiratory failure. 2. Hypothyroidism. 3. End-stage renal disease, on dialysis. 4. Leukocytosis. 5. Clostridium (C) difficile also secondary to colonization. 6. Acute blood loss anemia secondary to gastrointestinal (GI) bleed. 7. Bilateral pleural effusions. 8. Diastolic congestive heart failure. 9. Pancreatic cyst. 10. Hypothyroidism. 11. Chronic obstructive pulmonary disease (COPD). 12. Right tibial/fibula fracture, cast. PLAN: After family discussion, patient is placed on comfort measures only. Hospice medication ordered. Patient on mechanical soft diet. Hospice consulted. No medication adjustment needed at this moment. VS,Fishbone, I+O VS, Fishbone, I+O Vital Signs Date Time Temp Pulse Resp B/P (MAP) Pulse Ox O2 Delivery O2 Flow Rate FiO2 10/21/18 08:30 3.0 10/20/18 12:00 35 10/20/18 12:00 104 122/55 (77) 100 10/20/18 08:45 12 10/20/18 03:43 96.6 10/16/18 15:13 Nasal Cannula I&O- Last 24 Hours up to 6 AM 10/21/18 06:00 Intake Total 120 ml Output Total 100 ml Balance 20 ml KAREN MARTINEZ DO Oct 21, 2018 18:43
[2018-10-22] MEDS: ALBUTEROL SULFATE 2.5 MG/0.5 ML INH NEB SOLN INH SCH ×6 (01:30→23:41)
--- NOTE | 2018-10-22 20:22 | IPNPDOC ---
Text Note Date of Service The patient was seen on 10/22/18. NOTE SUBJECTIVE: Patient was seen in the room today. No event is reported. No anxiety. No distress. OBJECTIVE: VITAL SIGNS: Listed below. GENERAL: Comfortable. . HEENT: Normocephalic, atraumatic. ABDOMEN: Soft, nontender, nondistended. EXTREMITIES: Cast of the right lower extremity. Dialysis fistula located in left upper extremity. LABORATORY DATA: Listed below. ASSESSMENT AND PLAN: 1. Hypercarbic respiratory failure. 2. Hypothyroidism. 3. End-stage renal disease, on dialysis. 4. Leukocytosis. 5. Clostridium (C) difficile also secondary to colonization. 6. Acute blood loss anemia secondary to gastrointestinal (GI) bleed. 7. Bilateral pleural effusions. 8. Diastolic congestive heart failure. 9. Pancreatic cyst. 10. Hypothyroidism. 11. Chronic obstructive pulmonary disease (COPD). 12. Right tibial/fibula fracture, cast. PLAN: After family discussion, patient is placed on comfort measures only. Hospice medication ordered. Patient on mechanical soft diet. Hospice consulted. No medication adjustment needed at this moment. Poor prognosis. VS,Fishbone, I+O VS, Fishbone, I+O Vital Signs Date Time Temp Pulse Resp B/P (MAP) Pulse Ox O2 Delivery O2 Flow Rate FiO2 10/22/18 08:00 5.0 10/20/18 12:00 35 10/20/18 12:00 104 122/55 (77) 100 10/20/18 08:45 12 10/20/18 03:43 96.6 10/16/18 15:13 Nasal Cannula I&O- Last 24 Hours up to 6 AM 10/22/18 06:00 Intake Total 240 ml Output Total 50 ml Balance 190 ml KAREN MARTINEZ DO Oct 22, 2018 20:22
[2018-10-23] MEDS: ALBUTEROL SULFATE 2.5 MG/0.5 ML INH NEB SOLN INH SCH ×6 (04:00→23:31)
--- NOTE | 2018-10-23 17:14 | IPNPDOC ---
Text Note Date of Service The patient was seen on 10/23/18. NOTE SUBJECTIVE: Patient was seen in the room today. Patient barely responded to questions. No anxiety. No distress. OBJECTIVE: VITAL SIGNS: Listed below. GENERAL: Comfortable. . HEENT: Normocephalic, atraumatic. ABDOMEN: Soft, nontender, nondistended. EXTREMITIES: Cast of the right lower extremity. Dialysis fistula located in left upper extremity. LABORATORY DATA: Listed below. ASSESSMENT AND PLAN: 1. Hypercarbic respiratory failure. 2. Hypothyroidism. 3. End-stage renal disease, on dialysis. 4. Leukocytosis. 5. Clostridium (C) difficile also secondary to colonization. 6. Acute blood loss anemia secondary to gastrointestinal (GI) bleed. 7. Bilateral pleural effusions. 8. Diastolic congestive heart failure. 9. Pancreatic cyst. 10. Hypothyroidism. 11. Chronic obstructive pulmonary disease (COPD). 12. Right tibial/fibula fracture, cast. PLAN: Patient is comfort measures only. Hospice medication ordered. Patient on mechanical soft diet. Hospice consulted. No medication adjustment needed at this moment. Poor prognosis. VS,Fishbone, I+O VS, Fishbone, I+O Vital Signs Date Time Temp Pulse Resp B/P (MAP) Pulse Ox O2 Delivery O2 Flow Rate FiO2 10/23/18 11:00 8.0 10/20/18 12:00 35 10/20/18 12:00 104 122/55 (77) 100 10/20/18 08:45 12 10/20/18 03:43 96.6 I&O- Last 24 Hours up to 6 AM 10/23/18 06:00 Intake Total 530 ml Output Total 25 ml Balance 505 ml KAREN MARTINEZ DO Oct 23, 2018 17:14
[2018-10-24] MEDS: ALBUTEROL SULFATE 2.5 MG/0.5 ML INH NEB SOLN INH SCH ×5 (02:32→20:00)
[2018-10-24] MEDS: MORPHINE SULFATE ORAL SOLN 10 MG/5 ML UD SL PRN ×2 (05:47→22:03)
--- NOTE | 2018-10-24 14:29 | IPNPDOC ---
Subjective Date Seen The patient was seen on 10/24/18. Subjective Chief Complaint/HPI Patient seen and examined at the bedside. He remains comfort measures only. No overnight events noted. Objective Physical Examination General Exam: Positive: No Acute Distress ENT Exam: Positive: Atraumatic; Negative: Mucous membr. moist/pink (dry mucous membranes) Neck Exam: Negative: JVD Chest Exam: Positive: Diminished Heart Exam: Positive: Rate Normal, Normal S1, Normal S2 Abdomen Exam: Positive: Soft Assessment /Plan Plan/VTE VTE Prophylaxis Ordered?: No Plan Hypercarbic respiratory failure. Acute blood loss anemia secondary to gastrointestinal (GI) bleed End-stage renal disease, on dialysis. Leukocytosis. Clostridium (C) difficile 2/2 Colonization. Bilateral pleural effusions. Diastolic congestive heart failure. Pancreatic cyst. Hypothyroidism. Chronic obstructive pulmonary disease (COPD). Right tibial/fibula fracture, cast. VS, I&O, 24H, Fishbone Vital Signs/I&O Vital Signs Date Time Temp Pulse Resp B/P (MAP) Pulse Ox O2 Delivery O2 Flow Rate FiO2 10/24/18 09:50 8.0 10/24/18 06:18 16 10/20/18 12:00 35 10/20/18 12:00 104 122/55 (77) 100 10/20/18 03:43 96.6 I&O- Last 24 Hours up to 6 AM 10/24/18 05:59 Intake Total 560 ml Output Total 0 ml Balance 560 ml Laboratory Data Microbiology Microbiology 10/20/18 Blood Culture - Preliminary, Resulted No Growth after 72 hours. All specime... 10/20/18 Blood Culture - Preliminary, Resulted No Growth after 72 hours. All specime... 10/16/18 Blood Culture - Final, Complete NO GROWTH AFTER 5 DAYS 10/16/18 Blood Culture - Final, Complete NO GROWTH AFTER 5 DAYS 10/16/18 Gastrointestinal Tract Panel (PCR) - Final, Complete Clostridium Difficile A/B GERMANIA CHACON MD Oct 24, 2018 14:29
[2018-10-25] MEDS: ALBUTEROL SULFATE 2.5 MG/0.5 ML INH NEB SOLN INH SCH ×7 (04:00→23:25)
--- NOTE | 2018-10-25 11:59 | IPNPDOC ---
Subjective Date Seen The patient was seen on 10/25/18. Subjective Chief Complaint/HPI Patient seen and examined at the bedside. No acute overnight events noted. Objective Physical Examination General Exam: Positive: No Acute Distress, Other (patient obtunded. He opens h is eyes to stimulation, but does not verbalize. It does not appear that he is having much by mouth intake either.) ENT Exam: Positive: Atraumatic; Negative: Mucous membr. moist/pink (dry mucous membranes) Neck Exam: Negative: JVD Chest Exam: Positive: Diminished Heart Exam: Positive: Rate Normal, Normal S1, Normal S2 Abdomen Exam: Positive: Soft Assessment /Plan Plan/VTE VTE Prophylaxis Ordered?: No Plan Hypercarbic respiratory failure. Acute blood loss anemia secondary to gastrointestinal (GI) bleed End-stage renal disease, on dialysis. Leukocytosis. Clostridium (C) difficile 2/2 Colonization. Bilateral pleural effusions. Diastolic congestive heart failure. Pancreatic cyst. Hypothyroidism. Chronic obstructive pulmonary disease (COPD). Right tibial/fibula fracture, cast. VS, I&O, 24H, Fishbone Vital Signs/I&O Vital Signs Date Time Temp Pulse Resp B/P (MAP) Pulse Ox O2 Delivery O2 Flow Rate FiO2 10/25/18 09:53 8.0 10/24/18 22:40 18 10/20/18 12:00 35 10/20/18 12:00 104 122/55 (77) 100 10/20/18 03:43 96.6 I&O- Last 24 Hours up to 6 AM 10/25/18 06:00 Intake Total 120 ml Output Total 0 ml Balance 120 ml Laboratory Data 24H LABS Laboratory Tests 2 10/24/18 17:19: Lab Scanned Report Transfusion Record Microbiology Microbiology 10/20/18 Blood Culture - Final, Complete NO GROWTH AFTER 5 DAYS 10/20/18 Blood Culture - Final, Complete NO GROWTH AFTER 5 DAYS 10/16/18 Blood Culture - Final, Complete NO GROWTH AFTER 5 DAYS 10/16/18 Blood Culture - Final, Complete NO GROWTH AFTER 5 DAYS 10/16/18 Gastrointestinal Tract Panel (PCR) - Final, Complete Clostridium Difficile A/B GERMANIA CHACON MD Oct 25, 2018 11:59
[2018-10-25] MEDS: MORPHINE SULFATE ORAL SOLN 10 MG/5 ML UD SL PRN (22:25)
[2018-10-26] MEDS: ALBUTEROL SULFATE 2.5 MG/0.5 ML INH NEB SOLN INH SCH ×4 (04:00→11:32)
[2018-10-26] MEDS: MORPHINE SULFATE ORAL SOLN 10 MG/5 ML UD SL PRN (09:11)
--- NOTE | 2018-10-30 18:14 | DS.PDOC ---
Discharge Summary General Date of Admission Oct 16, 2018 at 10:29 Date of Discharge 10/26/18 Specialist/Consultants Involve Dr. Terry of ID, Dr. Watson of Pulmonary, Dr. Bird of Nephro, Dr. Valladares of GI Discharge Summary PROCEDURES PERFORMED DURING STAY: None. ADMITTING/DISCHARGE DIAGNOSES: Hypercarbic respiratory failure. Acute blood loss anemia secondary to gastrointestinal (GI) bleed End-stage renal disease, on dialysis. Leukocytosis. Clostridium (C) difficile 2/2 Colonization. Bilateral pleural effusions. Diastolic congestive heart failure. Pancreatic cyst. Hypothyroidism. Chronic obstructive pulmonary disease (COPD). Right tibial/fibula fracture, cast. COMPLICATIONS/CHIEF COMPLAINT: Gi Bleed. HISTORY OF PRESENT ILLNESS: . 87-year-old male with past medical history of end-stage renal disease on hemodialysis, hypothyroidism, glaucoma, dementia, chronic obstructive pulmonary disease, chronic urinary retention, and recent hospitalization for nondisplaced proximal tibia/fibula fracture which was treated conservatively presented to the ER after he was found to have a syncopal episode during dialysis. Subsequent blood pressure check revealed that the patient was hypotensive. Of note, the patient usually takes Midodrine for similar episodes in the past on dialysis d ays. He was sent to the ER for further evaluation. He denied any complaints of fevers, chills, chest pain, palpitations, abdominal pain, or any nausea/vomiting/diarrhea in the ER. In the ER, the patient was also noted to have a large melanotic bowel movement. His hemoglobin was noted to be 7.5, when his baseline is closer to 9.5. He remained hemodynamically stable otherwise. He will be transfused 1 unit of packed red blood cells, and admitted to the hospitalist service for further evaluation and management. During hospitalization, the patient was transfused 2 units of packed red cells total. Unfortunately, the patient became unresponsive and was noted to have hypercapnic respiratory failure and was also noted to be hypotensive. He was placed on BiPAP therapy but did not recover. It is of note that the patient has had multiple episodes of hypotension during dialysis and GI bleed which may have been secondary to those hypotensive episodes. Despite this, the patient has been fluid overloaded overall. Given the patient's poor clinical condition, and his already DNR/DNI status, the patient was made comfort measures only. He on 10/26/18 at 10 AM. DISPOSITION: 20 . TIME SPENT ON DISCHARGE: Greater than 30 minutes. Vital Signs/I&Os Vital Signs Date Time Temp Pulse Resp B/P (MAP) Pulse Ox O2 Delivery O2 Flow Rate FiO2 10/26/18 09:42 8.0 10/25/18 23:00 16 Microbiology Microbiology 10/20/18 Blood Culture - Final, Complete NO GROWTH AFTER 5 DAYS 10/20/18 Blood Culture - Final, Complete NO GROWTH AFTER 5 DAYS Discharge Medications Scheduled (Icaps) 1 Cap Cap, 1 CAP PO DAILY, (Reported) (Mandie-Musa) 1 Tab Tab, 1 TAB PO QPM, (Reported) (Tubersol) 5 Unit/0.1 Ml Inj, 5 UNIT ID ASDIRECTED, (Reported) DUE TO RECEIVE 10/16/18 (Nepro with Carbsteady) 1 Liq Liq, 240 ML PO DAILY, (Reported) TAKES AT 1400 Albuterol/Ipratropium (Ipratropium [place]/Albut 0.5-2.5 (3) mg/3Ml) 1 Marcos Marcos, 1 MARCOS INH BID, (Reported) Aspirin (Aspirin EC) 81 Mg Tab, 81 MG PO DAILY, (Reported) Brimonidine Tartrate (Brimonidine Tartrate) 0.2 % Marcos, 1 DROP OU BID, (Reported) Carvedilol (Carvedilol) 25 Mg Tab, 25 MG PO BID, (Reported) Cholecalciferol (Vitamin D3) 50,000 Unit Cap, 50,000 UNIT PO Q2WK, (Reported) TAKES ON THE AND OF THE MONTH Folic Acid (Folic Acid) 1 Mg Tab, 1 MG PO DAILY, (Reported) Furosemide (Furosemide) 40 Mg Tab, 40 MG PO DAILY, (Reported) Levothyroxine Sodium (Synthroid) 25 Mcg Tab, 25 MCG PO QAM, (Reported) Midodrine HCl (Midodrine HCl) 5 Mg Tab, 5 MG PO 3XW, (Reported) TUE, WED, TUE Patiromer Sorbitex Calcium (Veltassa) 8.4 Gm Pow, 8.4 GM PO QWEEK, (Reported) SUNDAYS Sevelamer Carbonate (Sevelamer Carbonate) 0.8 Gm Pow, 1.6 GM PO QPM, (Reported) Sevelamer Carbonate (Sevelamer Carbonate) 0.8 Gm Pow, 0.8 GM PO BID, (Reported) BREAKFAST AND LUNCH Travoprost (Travatan Z) 50 Drop/2.5 Ml Soln, 1 DROP OU QHS, (Reported) Scheduled PRN (Enema) 1 Camilo Camilo, 1 CAMILO IN DAILY PRN for CONSTIPATION, (Reported) Acetaminophen (Tylenol Extra Strength) 500 Mg Tab, 1,000 MG PO Q8H PRN for PAIN, (Reported) Albuterol Sulfate (Albuterol Sulfate) 2.5 Mg/3 Ml Nebu, 2.5 MG INH Q6H PRN for SHORTNESS OF BREATH, (Reported) Bisacodyl (Dulcolax) 10 Mg Sup, 10 MG IN DAILY PRN for CONSTIPATION, (Reported) Milk Of Magnesia (Milk of Magnesia) 1,200 Mg/15 Ml Ashley, 30 ML PO DAILY PRN for CONSTIPATION, (Reported) Allergies Coded Allergies: Ciprofloxacin (Verified Adverse Reaction, Mild, metabolic encephalopathy, 09/13/18) Sulfamethoxazole w/Trimethoprim (Unverified Adverse Reaction, Mild, METABOLIC ENCEPHALOPATHY, 09/13/18) GERMANIA CHACON MD Oct 30, 2018 18:14
--- NOTE | 2018-11-02 06:47 | REP ---
Clinical: Pancreatic cystic lesions. Technique: Noncontrast MRI of the abdomen using MRCP technique. Findings: Examination was significantly limited due to respiratory motion. The gallbladder and biliary system appear relatively normal and without evidence for gallstones, pericholecystic fluid, or biliary ductal dilatation. Pancreas includes 1.7 cm relatively simple appearing cyst at the tail along with few scattered. Ductal cysts extending to the head/uncinate process which measure up to approximately 8 mm. Pancreatic parenchyma appears grossly normal by current noncontrast limited examination. Kidneys appear significantly atrophic with few scattered small sub centimeter simple cysts and no evidence for hydronephrosis. Impression: 1. Relatively benign appearing pancreatic cysts as described above. These findings cannot exclude the possibility of intraductal papillary mucinous neoplasm (IPMN). Annual surveillance may be warranted. 2. Atrophic bilateral kidneys with scattered sub centimeter cysts. 3. Essentially normal appearance to the gallbladder and biliary system. Electronically Signed by Adonis Aleman MD 11/02/2018 06:39 A
== END 2018-10-26 10:00 | disposition expired | DRG 377 ==
LOC: EDBD 07:38 → M ED 07:38 → M ED INP 10:29 → M PCU 15:13 → M ICU 10-20 03:38 → M MSPAV 10-20 17:14
PROVIDERS: ADMIT Internal Medicine; ATTEND Internal Medicine
PROC: 30233N1 Transfusion of Nonautologous Red Blood Cells into Peripheral Vein, Percutaneous Approach (ICD-10-PCS; 2018-10-16)
PROC: 5A1D70Z Performance of Urinary Filtration, Intermittent, Less than 6 Hours Per Day (ICD-10-PCS; principal; 2018-10-17)
DX: K92.2 Gastrointestinal hemorrhage, unspecified (principal); N18.6 End stage renal disease; J96.02 Acute respiratory failure with hypercapnia; J96.01 Acute respiratory failure with hypoxia; J18.9 Pneumonia, unspecified organism; D62 Acute posthemorrhagic anemia; K86.2 Cyst of pancreas; I50.32 Chronic diastolic (congestive) heart failure; J81.1 Chronic pulmonary edema; Z51.5 Encounter for palliative care; Z66 Do not resuscitate; E03.9 Hypothyroidism, unspecified; I95.3 Hypotension of hemodialysis; H40.9 Unspecified glaucoma; F03.90 Unspecified dementia, unspecified severity, without behavioral disturbance, psychotic disturbance, mood disturbance, and anxiety; J44.9 Chronic obstructive pulmonary disease, unspecified; R33.9 Retention of urine, unspecified; Z79.82 Long term (current) use of aspirin; Z79.899 Other long term (current) drug therapy; Z88.1 Allergy status to other antibiotic agents; Z88.2 Allergy status to sulfonamides; Z99.2 Dependence on renal dialysis